=== PATIENT | male | born 1970 | race Caucasian/White ===

== ENCOUNTER → 2020-01-01 11:10 | Outpatient (BNVA) | payer OTHER, SELFPAY | PROVIDERS: PCP Internal Medicine; Visit Provider Surgery | DX: Z76.89 Persons encountering health services in other specified circumstances (principal) ==

== ENCOUNTER 2020-01-03 14:58 | Outpatient (REF) | payer OTHER, SELFPAY ==
[2020-01-03 16:20] LABS: CDIFF Ag Negative (Negative)
[2020-01-03 16:21] LABS: CDIFF Internal ctrl Dots and bkg OK (V); CDiff Toxin Negative (Negative)
== END 2020-01-03 14:59 | disposition home or self-care (01) ==
LOC: HO.LNP 14:58
PROVIDERS: Visit Provider Surgery
DX: K57.20 Diverticulitis of large intestine with perforation and abscess without bleeding (principal)
CPT/HCPCS: 87324; 87449

== ENCOUNTER 2020-01-18 06:37 | Inpatient (IN) | payer OTHER, SELFPAY ==
[2020-01-07 09:35] VITALS: BMI 34.7
[2020-01-18] VITALS (12 sets, daily range): BP systolic 130–165; BP diastolic 82–105; PULSE 63–83; RESP 16–22; TEMP 35.7–37; O2SAT 98
[2020-01-18] MEDS: Lactated Ringers 1,000 ML 100 ML IVCONT ×2 (06:25→16:41)
--- NOTE | 2020-01-18 07:20 | HO.ANESPROP2 ---
[facility] Past Medical History Medical History (Updated 01/07/20 @ 09:34 by Eliana Ruiz) Anxiety Constipation GERD (gastroesophageal reflux disease) History of diverticulitis Hyperlipidemia Hypertension Mitral valve disease Right ankle pain Family History Family History (Updated 01/01/20 @ 11:46 by VIRGILIO Alex) Mother No problems noted. Father No problems noted. Surgical History Surgical History (Updated 01/01/20 @ 13:48 by Ricco Echevarira MD) H/O mitral valve repair Status post Ammy procedure (10/21/19) Social History Social History (Updated 01/01/20 @ 11:46 by VIRGILIO Alex) Are you a primary career technical education instructor to a significant other at home: No Do you presently have visiting nurse or other home services: Yes Alcohol intake: never Smoking Status: Never smoker Second Hand Smoke Exposure: No Use of substances other than those prescribed or required for medical reasons: No Have you been hit, kicked, punched, or otherwise hurt by someone within the past year? If so, by whom?: No Advance Directives: No Advance Directives Information Provided: No Recently lost weight without trying: Yes Meds Allergies Allergy/AdvReac Type Severity Reaction Status Date / Time morphine [MORPHINE] Allergy Unknown HIVES, rash Verified 01/07/20 09:34 Home Medications Medication Instructions Recorded Confirmed Type amlodipine 10 mg tablet 10 mg PO DAILY 12/28/19 01/07/20 History aspirin 81 mg tablet,delayed 81 mg PO DAILY 12/28/19 01/07/20 History release atorvastatin 20 mg tablet 20 mg PO DAILY 12/28/19 01/07/20 History baclofen 10 mg tablet 10 mg PO TID 12/28/19 01/07/20 History cyclobenzaprine 10 mg tablet 10 mg PO BEDTIME 12/28/19 01/07/20 History dicyclomine 20 mg tablet 20 mg PO TID 12/28/19 01/07/20 History docusate sodium 100 mg capsule 100 mg PO DAILY 12/28/19 01/07/20 History metoprolol tartrate 50 mg tablet 50 mg PO DAILY 12/28/19 01/07/20 History nystatin 500,000 unit tablet 500,000 unit PO QID 12/28/19 01/07/20 History omeprazole 20 mg capsule,delayed 20 mg PO DAILY 12/28/19 01/07/20 History release gabapentin 300 mg PO BEDTIME 01/07/20 01/07/20 History sertraline 25 mg PO DAILY 01/07/20 01/07/20 History Exam Exam Date and Time: January 18, [id number] Height,Weight and Vital Signs: Height 5 ft 6 in Weight 97.522 kg Last Vital Signs Temp 97.4 F 01/18/20 06:13 Pulse 65 01/18/20 06:13 Resp 18 01/18/20 06:13 BP 165/105 H 01/18/20 06:13 Pulse Ox 98 01/18/20 06:13 Airway Mallampati Class: III TM Dist: >3cm Neck ROM: Full Heart: RRR Assessment and Plan Assessment Anesthesia Assessment: Anesthesia Plan Discussed Final Anesthetic Review NPO: Yes ASA Class: III Final Preanesthetic Review: Consent Obtained/Reviewed Anesthetic Plan Anesthetic Plan: GA
--- NOTE | 2020-01-18 07:21 | MHC.SHP ---
Pre-Procedural Eval Section A The patient is an INPATIENT: No Changes since office visit: Yes Patient answered all questions; No Cold of Flu in the past 2 weeks, No New Medical Problems and No Changes in Medication The History & Physical has been completed within 30 days and I have reviewed it.: Yes Section B Chief Complaint: S/P colostomy closure Allergies: Allergies Allergy/AdvReac Type Severity Reaction Status Date / Time morphine [MORPHINE] Allergy Unknown HIVES, rash Verified 01/07/20 09:34 Plan Diagnosis/Plan: Unchanged Patient has been examined and remains a candidate for the planned procedure
[2020-01-18 07:28] LABS: SARS COV2 PCR INHOUSE NEGATIVE (Negative)
--- NOTE | 2020-01-18 10:30 | PM.OP ---
Brief Operative Note Date of procedure: 01/18/20 <Noelle Morris PA-C - Last Filed: 01/18/20 10:32> 01/18/20 <Constantino Echevarria MD - Last Filed: 01/18/20 10:51> Pre-op diagnosis: perforated sigmoid diverticulitis s/p luis procedure <Noelle Morris PA-C - Last Filed: 01/18/20 10:32> Post-op diagnosis: same <Noelle Morris PA-C - Last Filed: 01/18/20 10:32> Procedure: ex lap, colostomy reversal <Noelle Morris PA-C - Last Filed: 01/18/20 10:32> Closure of colostomy Indication for procedure. Patient is a 49-year-old male with a previous history of perforated sigmoid diverticulitis status post Luis's procedure. He returns today for closure of his descending colon colostomy. Operative findings. Patient was found to have no further diverticular disease in both the descending colon or rectal stump. Patient underwent an EEA anastomosis. Procedure details: Patient was brought to the OR placed in a supine position. After administering general anesthesia patient was placed in lithotomy position. Patient's period anal skin was prepped with Betadine and abdomen prepped with ChloraPrep. he was draped in a sterile fashion. A surgical time-out was called the consent confirmed. Patient received preoperative antibiotics and Venodyne boots were placed. Local anesthesia consisting of 0.75% Sensorcaine with epinephrine was then infiltrated in the lower midline. A lower midline incision was then made with a scalpel. This was carried out through subcutaneous tissue past linea alba and into the peritoneum. Dense adhesions were noted to the anterior abdominal wall. These were gently taken down which included adherent omentum. The ostomy was identified in the abdominal cavity. Rectal stump was also identified. At this point an elliptical incision was made around the colostomy in the left lower quadrant. Incision was carried out through subcutaneous tissue and around the colonic wall. Dissection was continued past the peritoneum in the colostomy was brought into the abdominal cavity. Further dissection along the lateral attachments were mobilized as well. At this point the mesentery of the colostomy wall was dissected free and a pursestring clamp applied to the bowel. A true will 0 Prolene suture was then placed as a pursestring. The bowel was then dilated to 28 mm. Attention was then directed to the rectum where the anal canal was dilated to 28 as well. A 28 mm EEA stapler was then obtained. The anvil was placed in the descending colon and the pursestring tied. The device was then brought up through the rectum and brought out through the anterior rectal wall. The anvil in the rita were connected. The stapler was then fired 2 complete donut rings were identified. The anastomosis was reinforced using interrupted 3 0 Surgilon sutures. A leak test was then performed by instilling air into the rectum with the pelvis filled with saline solution. No leak could be identified. The abdomen was then thoroughly irrigated and suctioned dry. Wounds were checked for hemostasis. The colostomy wound was closed in layers using interrupted 0 Polysorb suture to reapproximate the rectus muscle. The fascia was closed using a 1 Maxon suture. Subcutaneous tissue and skin was closed skin rita. The midline incision was closed using a running Maxon suture from both above and below and tied in the center. Subcutaneous tissue and dermis were reapproximated using interrupted 3 0 Polysorb sutures. Skin was closed using skin rita. Sterile dressings were applied. The patient tolerated procedure well. Sponge, instrument, and needle counts were reported as correct. The patient was transferred to PACU in stable condition. <Constantino Echevarria MD - Last Filed: 01/18/20 10:51> Implants: none <Noelle Morris PA-C - Last Filed: 01/18/20 10:32> Surgeon: CONSTANTINO ECHEVARRIA MD <Noelle Morris PA-C - Last Filed: 01/18/20 10:32> Anesthesia: GETA <Noelle Morris PA-C - Last Filed: 01/18/20 10:32> Tube Sizer Operator: Noelle Morris <Noelle Morris PA-C - Last Filed: 01/18/20 10:32> Estimated blood loss (mL): 75 <Noelle Morris PA-C - Last Filed: 01/18/20 10:32> IV fluids (mL): 1,200 <Noelle Morris PA-C - Last Filed: 01/18/20 10:32> Urine output (mL): 150 <Noelle Morris PA-C - Last Filed: 01/18/20 10:32> Pathology: other (colostomy, EEA rings) <Noelle Morris PA-C - Last Filed: 01/18/20 10:32> Condition: stable <Noelle Morris PA-C - Last Filed: 01/18/20 10:32> Disposition: PACU <ALEXSANDRA Kang Last Filed: 01/18/20 10:32>
[2020-01-18] MEDS: ondansetron HCL 4 MG/2 ML VIAL IVPUSH (11:06)
[2020-01-18] MEDS: fentaNYL citrate/PF 100 MCG/2 ML VIAL 50 MCG IVPUSH ×2 (11:15→11:25)
[2020-01-18] MEDS: HYDROmorphone HCl 0.5 MG/0.5 ML SYRINGE 0.25 MG IVPUSH (11:40)
[2020-01-18] MEDS: Dextrose 5 % and Lactated Ring 1,000 ML 125 ML IVCONT ×2 (13:19→17:39)
[2020-01-18] MEDS: HYDROmorphone HCl 0.5 MG/0.5 ML SYRINGE IVPUSH ×3 (13:39→21:50)
--- NOTE | 2020-01-18 13:53 | MHC.CM.PN ---
NURSE GILBERTO TELETYPEWRITER OPERATOR NOTE ELECTRONIC MEDICAL RECORD REVIEWED ALNG WITH CASE DISCUSSED WITH STAFF NURSE , MET WITH PATIENT KNOW SUJATHAM [facility]. PATIENT LIVES [place] , HE REPORTS TYHAT HE IS INDEPENDENT IN ALL ADLS AND MOBILITY , WITH OUT ANY DEVICES. HE REPORTS THAT HE LOST HIS JOB SECONDARY TO MANY MEDICAL ISSUES AND THEN A NEW OSTOMY. HE HAD MET WITH [facility] [place] FINANCIAL COUNSELORS, AND NOW HAS [employer] AND IS WORKING ON FILLING FOR DISABILITY. HE REPORTED HE HAS A HEALTH CARE PROXY AND HE NAME HIS MOTHER , I REQUESTED THAT E ONE BRING IN A COPUY TO HAVE ON FILE. DISCHARGED HOME WITH RESUMPTION OF HIS [facility] NURSING VISITIS, FOR DIAGNOSIS SIGHN SYMPTOM MANAGEMENT AND POST OP INCISIONAL SITE TRANSPORTATION PATIENT TO SELF ARRANGE PCP DR KEISHA OLMEDO APPOINTMENT TO BE MADE BEFORE HE IS DISCHARGED SURGICAL FOLLOW UP PER DISCHARGE INSTRUCTIONS
--- NOTE | 2020-01-18 15:02 | W.PM.OPN ---
Operative Note Operative Note Narrative: Date of procedure: 01/18/20 Pre-op diagnosis: perforated sigmoid diverticulitis s/p lusi procedure Post-op diagnosis: same Procedure: Closure of colostomy Indication for procedure. Patient is a 49-year-old male with a previous history of perforated sigmoid diverticulitis status post Luis's procedure. He returns today for closure of his descending colon colostomy. Operative findings. Patient was found to have no further diverticular disease in both the descending colon or rectal stump. Patient underwent an EEA anastomosis. Procedure details: Patient was brought to the OR placed in a supine position. After administering general anesthesia patient was placed in lithotomy position. Patient's period anal skin was prepped with Betadine and abdomen prepped with ChloraPrep. he was draped in a sterile fashion. A surgical time-out was called the consent confirmed. Patient received preoperative antibiotics and Venodyne boots were placed. Local anesthesia consisting of 0.75% Sensorcaine with epinephrine was then infiltrated in the lower midline. A lower midline incision was then made with a scalpel. This was carried out through subcutaneous tissue past linea alba and into the peritoneum. Dense adhesions were noted to the anterior abdominal wall. These were gently taken down which included adherent omentum. The ostomy was identified in the abdominal cavity. Rectal stump was also identified. At this point an elliptical incision was made around the colostomy in the left lower quadrant. Incision was carried out through subcutaneous tissue and around the colonic wall. Dissection was continued past the peritoneum in the colostomy was brought into the abdominal cavity. Further dissection along the lateral attachments were mobilized as well. At this point the mesentery of the colostomy wall was dissected free and a pursestring clamp applied to the bowel. A true will 0 Prolene suture was then placed as a pursestring. The bowel was then dilated to 28 mm. Attention was then directed to the rectum where the anal canal was dilated to 28 as well. A 28 mm EEA stapler was then obtained. The anvil was placed in the descending colon and the pursestring tied. The device was then brought up through the rectum and brought out through the anterior rectal wall. The anvil in the rita were connected. The stapler was then fired 2 complete donut rings were identified. The anastomosis was reinforced using interrupted 3 0 Surgilon sutures. A leak test was then performed by instilling air into the rectum with the pelvis filled with saline solution. No leak could be identified. The abdomen was then thoroughly irrigated and suctioned dry. Wounds were checked for hemostasis. The colostomy wound was closed in layers using interrupted 0 Polysorb suture to reapproximate the rectus muscle. The fascia was closed using a 1 Maxon suture. Subcutaneous tissue and skin was closed skin rita. The midline incision was closed using a running Maxon suture from both above and below and tied in the center. Subcutaneous tissue and dermis were reapproximated using interrupted 3 0 Polysorb sutures. Skin was closed using skin rita. Sterile dressings were applied. The patient tolerated procedure well. Sponge, instrument, and needle counts were reported as correct. The patient was transferred to PACU in stable condition. <Constantino Echevarria MD - Last Filed: 01/18/20 10:51> Implants: none Surgeon: CONSTANTINO ECHEVARRIA MD Anesthesia: GETA Aquatics Coordinator: Noelle Morris Estimated blood loss (mL): 75 IV fluids (mL): 1,200 Urine output (mL): 150 Pathology: other (colostomy, EEA rings) Condition: stable Disposition: PACU
[2020-01-18] MEDS: oxyCODONE HCl Immed Release 5 MG TABLET PO ×2 (15:50→20:13)
[2020-01-18] MEDS: Gabapentin 300 MG CAPSULE PO (20:14)
[2020-01-18] MEDS: Zolpidem Tartrate 5 MG TABLET PO (20:18)
[2020-01-19] VITALS (8 sets, daily range): BP systolic 119–196; BP diastolic 76–118; PULSE 67–81; RESP 16–19; TEMP 35.8–36.6; O2SAT 94–98; BMI 34.7
[2020-01-19] MEDS: HYDROmorphone HCl 0.5 MG/0.5 ML SYRINGE IVPUSH ×6 (00:17→13:44)
[2020-01-19] MEDS: Dextrose 5 % and Lactated Ring 1,000 ML 125 ML IVCONT ×3 (01:41→17:25)
--- NOTE | 2020-01-19 07:37 | PM.PNGS ---
Subjective Subjective Interval history: Had a rough night of sleep due to pain. Dilaudid is the only medication relieving pain. Tolerating clears without N/V. Unsure if passing flatus. Has not been oob yet. <ALEXSANDRA Kang Last Filed: 01/19/20 07:41> Physical Exam Vital Signs: Vital Signs: Vital Signs Temp Pulse Resp BP Pulse Ox 01/19/20 04:00 97.2 F 81 18 134/76 98 01/19/20 00:00 97.3 F 80 18 150/86 H 94 01/18/20 22:38 79 20 143/82 H 01/18/20 22:07 80 20 137/87 01/18/20 21:51 83 149/91 H 01/18/20 21:50 20 01/18/20 19:38 98.6 F 82 20 162/100 H 98 01/18/20 17:22 98.1 F 74 17 155/92 H 98 01/18/20 15:24 96.3 F L 77 18 156/97 H 98 01/18/20 12:14 63 18 130/85 01/18/20 11:40 16 01/18/20 11:25 20 01/18/20 11:15 22 H Body Mass Index 34.7 <ALEXSANDRA Kang Last Filed: 01/19/20 07:41> Const: General: comfortable, no acute distress and alert <ALEXSANDRA Kang Last Filed: 01/19/20 07:41> Orientation/consciousness: patient oriented x3 <Noelle Morris PA-C Last Filed: 01/19/20 07:41> Eyes: Sclerae: sclerae normal <ALEXSANDRA Kang Last Filed: 01/19/20 07:41> Resp: Effort & Inspection: normal respiratory effort <ALEXSANDRA Kang Last Filed: 01/19/20 07:41> Cardio: Rate: regular rate <ALEXSANDRA Kang Last Filed: 01/19/20 07:41> Rhythm: regular rhythm <ALEXSANDRA Kang Last Filed: 01/19/20 07:41> GI: Inspection: Yes distended and Yes incision (dressing intact, clean) <Noelle Morris PA-C Last Filed: 01/19/20 07:41> Palpation (GI): Soft to palpation, Tenderness to palpation present (GI) (at incision), no guarding, not rigid and No Rebound tenderness present <Noelle Morris PA-C - Last Filed: 01/19/20 07:41> Percussion: Yes tympanic to percussion <ALEXSANDRA Kang Last Filed: 01/19/20 07:41> : General: Yes other (ruiz in place) <ALEXSANDRA Kang Last Filed: 01/19/20 07:41> Skin: General skin exam: no rashes or lesions noted <ALEXSANDRA Kang Last Filed: 01/19/20 07:41> Neuro: General: patient oriented x3 <ALEXSANDRA Kang Last Filed: 01/19/20 07:41> Extrem: General: Yes no clubbing, cyanosis or edema <ALEXSANDRA Kang Last Filed: 01/19/20 07:41> Progress Note: A&P Assessment and plan (1) S/P colostomy takedown: Status: Acute <Noelle Morris PA-C Gaby Last Filed: 01/19/20 07:41> Assessment and Plan: POD #1 s/p colostomy reversal for history of perforated sigmoid diverticulitis requiring luis procedure. Doing well post op, some difficulty with pain control. VSS. Clinically appearing well, abd exam slightly distended with appropriate post op tenderness, dressings C/D/I. Await return of GI fxn. Will cont clears for now. D/c Ruiz. Encouraged OOB/IS use. <Noelle Morris PA-C Last Filed: 01/19/20 07:41> Fall Risk Details Current Medications: Current Medications Generic Name Dose Route Start Last Admin Trade Name Freq PRN Reason Stop Dose Admin Al Hydroxide/Mg Hydroxide 30 ml 01/18/20 10:11 Magnesium Hydrox/Alum Hydrox 30 Ml Oral.Susp PO Q4H PRN Heartburn/Nausea Gabapentin 300 mg 10/19/20 21:00 01/18/20 20:14 Gabapentin 300 Mg Capsule PO 300 mg BEDTIME SHARIF Administration Hydromorphone HCl 0.5 mg 01/18/20 10:11 01/19/20 06:33 Hydromorphone Hcl 0.5 Mg/0.5 Ml Syringe IVPUSH 0.5 mg Q2H PRN Administration Pain, Severe (Pain Scale 7-10) Dextrose/Lactated Ringer's 1,000 mls @ 125 mls/hr 01/18/20 10:15 01/19/20 01:41 D5lr IVCONT 125 mls/hr .Q8H SHARIF Administration Acetaminophen 1,000 mg in 100 mls @ 400 mls/hr 01/18/20 15:00 01/19/20 04:39 Ofirmev IV 01/19/20 09:14 Infused Q6H SHARIF Infusion Ondansetron HCl 4 mg 01/18/20 10:11 Ondansetron Hcl 4 Mg/2 Ml Vial IVPUSH Q8H PRN Nausea and Vomiting Oxycodone HCl 5 mg 01/18/20 10:11 01/18/20 20:13 Oxycodone Hcl Immed Release 5 Mg Tablet PO 5 mg Q4H PRN Administration Pain, Moderate (Pain Scale 4-6 Sertraline HCl 25 mg 01/19/20 09:00 Sertraline Hcl 25 Mg Tablet PO DAILY SHARIF Sodium Chloride 3 ml 01/18/20 16:00 01/19/20 00:09 0.9 % Sodium Chloride Flush 3 Ml Syringe IVFLUSH Not Given QSHIFT SHARIF Zolpidem Tartrate 5 mg 01/18/20 10:11 01/18/20 20:18 Zolpidem Tartrate 5 Mg Tablet PO 5 mg BEDTIME PRN Administration Insomnia <Noelle Morris PA-C - Last Filed: 01/19/20 07:41> Time Spent With Patient Time: Total time spent is greater than 50% in coordination of care (as documented) at patient's floor/unit and/or counseling patient: <Noelle Morris PA-C - Last Filed: 01/19/20 07:41> s/p closure of colostomy, POD 1, remains hemodynamically stable. Wounds are clean and intact. Abdominal exam somewhat distended. Agree with the above assessment and plan. Continue clear liquids. Discontinue Ruiz catheter. Encouraged out of bed, ambulation, incentive spirometry. <Ricco Echevarria MD - Last Filed: 01/19/20 07:55> Time with patient: less than 15 minutes <Noelle Morris PA-C - Last Filed: 01/19/20 07:41> less than 15 minutes <Ricco Echevarria MD - Last Filed: 01/19/20 07:55>
--- NOTE | 2020-01-19 08:06 | HO.POSTANES ---
Post Anesthesia Evaluation Post Anesthesia Evaluation Vital Signs: Vital Signs Temp Pulse Resp BP Pulse Ox 01/19/20 08:00 96.4 F L 81 16 119/89 98 01/19/20 04:00 97.2 F 81 18 134/76 98 01/19/20 00:00 97.3 F 80 18 150/86 H 94 01/18/20 22:38 79 20 143/82 H 01/18/20 22:07 80 20 137/87 01/18/20 21:51 83 149/91 H 01/18/20 21:50 20 Anesthesia: General Mental Status: Awake Pain Control: Satisfactory Nausea/Vomiting: None Hydration: Adequate Anesthesia-Related Issues: No Anes. Related Issues
[2020-01-19] MEDS: oxyCODONE HCl Immed Release 5 MG TABLET 10 MG PO ×2 (08:51→14:36)
[2020-01-19] MEDS: Sertraline HCL 25 MG TABLET PO (08:51)
--- NOTE | 2020-01-19 13:00 | MHC.CM.PN ---
nurse care ana rosa note electronic medical record reviewed along with case discussed with staff nurse , met with patient today he reported that he did not sleep wel last night ,secondary to pain at the incision site, he has not passed any flatus or had a bowel movement , continues on iv fuids and and in transitioning to oral analgeics. discharge plan home with resumptin of the [facility] for nursing
[2020-01-19] MEDS: HYDROmorphone HCl 0.5 MG/0.5 ML SYRINGE 1 MG IVPUSH ×2 (17:23→22:05)
[2020-01-19] MEDS: amLODIPine Besylate 10 MG TABLET PO (17:23)
[2020-01-19] MEDS: Metoprolol Tartrate 50 MG TABLET PO (17:24)
--- NOTE | 2020-01-19 18:35 | PC.NURSE ---
BLOOD PRESSURE ELEVATED 170/100 MANUALLY. ANTHONY MCKEON NOTIFIED. NEW ORDERS FOR HOME PO MEDICATIONS GIVEN AND PT RECIEVED. WILL MONITOR BP THIS EVENING.
[2020-01-19] MEDS: oxyCODONE HCl Immed Release 5 MG TABLET PO (19:39)
[2020-01-19] MEDS: Zolpidem Tartrate 5 MG TABLET PO (21:55)
[2020-01-19] MEDS: Gabapentin 300 MG CAPSULE PO (21:55)
[2020-01-20] VITALS (8 sets, daily range): BP systolic 138–161; BP diastolic 79–118; PULSE 64–80; RESP 16–20; TEMP 36.2–36.8; O2SAT 94–99
[2020-01-20] MEDS: Dextrose 5 % and Lactated Ring 1,000 ML 125 ML IVCONT (00:58)
[2020-01-20] MEDS: HYDROmorphone HCl 0.5 MG/0.5 ML SYRINGE 1 MG IVPUSH ×5 (03:10→22:00)
--- NOTE | 2020-01-20 06:43 | PC.NURSE ---
pt had 2 stools with some bloody particles and 3rd stool was brown per patient because he flushed
--- NOTE | 2020-01-20 07:30 | P.PNGS_ITS ---
Subjective Subjective Interval history: Reports incisional pain, passed some flatus and a small bloody BM yesterday after walking. Reports mild nausea still but no vomiting. Physical Exam Vital Signs: Vital Signs: Vital Signs Temp Pulse Resp BP Pulse Ox 01/20/20 07:28 97.2 F 79 19 157/90 H 97 01/20/20 03:36 97.9 F 73 20 161/113 H 94 01/20/20 00:00 97.4 F 67 16 153/118 H 95 01/19/20 23:27 97.4 F 67 16 153/118 H 95 01/19/20 20:00 97.9 F 69 19 168/97 H 95 01/19/20 17:23 76 196/112 H 01/19/20 15:33 97.8 F 75 19 170/100 H 96 01/19/20 11:27 96.8 F 71 17 155/91 H 98 01/19/20 08:00 96.4 F L 81 16 119/89 98 Body Mass Index 34.7 Const: General: cooperative, no acute distress and awake Orientation/consciousness: patient oriented x3 Resp: Effort & Inspection: normal respiratory effort, no cough and no respiratory distress GI: Other: soft, distended, some bowel sounds, incision intact with some serosanguinous discharge. Dressings changes. No erythema, ostomy site clean and intact as well. Palpation (GI): Soft to palpation Skin: Other: warm and dry, no rash Neuro: General: patient oriented x3 Progress Note: A&P Assessment and plan (1) S/P colostomy takedown: Status: Acute Assessment and Plan: Patient is POD # 2 s/p closure of colostomy, bowel function has started to return with a small amount of flatus and BM. Patient reluctant to start regular diet due to nausea yesterday. Will keep on clears for today and possibly advance tomorrow. Encouraged patient to continue to ambulate, use IS. Pain meds increased yesterday. Fall Risk Details Current Medications: Current Medications Generic Name Dose Route Start Last Admin Trade Name Freq PRN Reason Stop Dose Admin Al Hydroxide/Mg Hydroxide 30 ml 01/18/20 10:11 Magnesium Hydrox/Alum Hydrox 30 Ml Oral.Susp PO Q4H PRN Heartburn/Nausea Amlodipine Besylate 10 mg 01/19/20 17:00 01/19/20 17:23 Amlodipine Besylate 10 Mg Tablet PO 10 mg DAILY SHARIF Administration Protocol Gabapentin 300 mg 01/18/20 21:00 01/19/20 21:55 Gabapentin 300 Mg Capsule PO 300 mg BEDTIME SHARIF Administration Hydromorphone HCl 1 mg 01/19/20 14:44 01/20/20 03:10 Hydromorphone Hcl 0.5 Mg/0.5 Ml Syringe IVPUSH 1 mg Q4H PRN Administration Pain, Severe (Pain Scale 7-10) Dextrose/Lactated Ringer's 1,000 mls @ 125 mls/hr 01/18/20 10:15 01/20/20 00:58 D5lr IVCONT 125 mls/hr .Q8H SHARIF Administration Acetaminophen 1,000 mg in 100 mls @ 400 mls/hr 01/19/20 15:00 01/20/20 03:49 Ofirmev IV 01/22/20 09:14 Infused Q6H [facility] Infusion Metoprolol Tartrate 50 mg 01/20/20 09:00 Metoprolol Tartrate 50 Mg Tablet PO DAILY [facility] Protocol Omeprazole 20 mg 01/20/20 07:30 Omeprazole 20 Mg Capsule.Dr PO DAILY@0630 [facility] Ondansetron HCl 4 mg 01/18/20 10:11 Ondansetron Hcl 4 Mg/2 Ml Vial IVPUSH Q8H PRN Nausea and Vomiting Oxycodone HCl 5 mg 01/18/20 10:11 01/19/20 19:39 Oxycodone Hcl Immed Release 5 Mg Tablet PO 5 mg Q4H PRN Administration Pain, Moderate (Pain Scale 4-6 Oxycodone HCl 10 mg 01/19/20 07:42 01/19/20 14:36 Oxycodone Hcl Immed Release 5 Mg Tablet PO 10 mg Q4H PRN Administration Pain, Severe (Pain Scale 7-10) Sertraline HCl 25 mg 01/19/20 09:00 01/19/20 08:51 Sertraline Hcl 25 Mg Tablet PO 25 mg DAILY [facility] Administration Sodium Chloride 3 ml 01/18/20 16:00 01/20/20 00:16 0.9 % Sodium Chloride Flush 3 Ml Syringe IVFLUSH Not Given QSHIFT [facility] Zolpidem Tartrate 5 mg 01/18/20 10:11 01/19/20 21:55 Zolpidem Tartrate 5 Mg Tablet PO 5 mg BEDTIME PRN Administration Insomnia Time Spent With Patient Time: Total time spent is greater than 50% in coordination of care (as documented) at patient's floor/unit and/or counseling patient: Time with patient: 15 - 24 minutes
[2020-01-20] MEDS: Sertraline HCL 25 MG TABLET PO (07:54)
[2020-01-20] MEDS: amLODIPine Besylate 10 MG TABLET PO (07:54)
[2020-01-20] MEDS: Omeprazole 20 MG CAPSULE.DR PO (07:55)
[2020-01-20] MEDS: Metoprolol Tartrate 50 MG TABLET PO (07:55)
[2020-01-20] MEDS: Dextrose 5 % and Lactated Ring 1,000 ML 60 ML IVCONT ×2 (08:03→22:27)
[2020-01-20 08:24] LABS: Basophils Percent Auto 0.2 % (0-2); Eosinophils Absolute Auto 0.1 X10*3/uL (0.0-0.4); Eosinophils Percent Auto 0.3 % (0-4); Hematocrit 42.1 % (42-52); Hemoglobin 13.5 g/dl (14.0-18.0); Imm Gran Abs Auto 0.14 X10*3/uL (0.00-0.03); Imm Gran Pct Auto 0.6 % (0.0-0.4); Lymphocytes Percent Auto 13.3 % (20-40); MANUAL DIFF FLAG SCAN; Mean Corpuscular HGB Conc 32.1 g/dl (31.0-36.0); Mean Corpuscular Hemoglobin 28.5 pg (27.0-33.0); Mean Platelet Volume 11.9 fL (9.4-12.4); Monocytes Absolute Auto 1.7 X10*3/uL (0.1-1.2); Monocytes Percent Auto 7.5 % (2-11); Neutrophils Absolute Auto 17.8 X10*3/uL (2.0-8.3); Neutrophils Percent Auto 78.1 % (45-73); Platelet Count 287 X10*3/uL (160-400); Red Blood Count 4.73 X10*6/uL (4.60-5.80); Red Cell Distribution Width 15.2 % (11.0-16.0); SCAN SMEAR FLAG 1; White Blood Count 22.7 X10*3/uL (4.8-10.8)
[2020-01-20 09:02] LABS: Anion Gap 12 (12-20); Blood Urea Nitrogen 15 mg/dL (9-16); Calcium 8.1 mg/dL (8.4-10.2); Carbon Dioxide 31 mmol/L (22-29); Chloride 98 mmol/L (96-108); Creatinine Clr Calc Pharmacy 71.8; Estimated Glomerular Filt Rate 55; Glucose Fasting 107 mg/dL (60-99); Potassium 4.1 mmol/l (3.3-5.1); Sodium 137 mmol/L (135-145)
[2020-01-20 09:10] LABS: SLIDE REVIEW VERIFIED
[2020-01-20] MEDS: oxyCODONE HCl Immed Release 5 MG TABLET 10 MG PO ×2 (14:41→19:41)
--- NOTE | 2020-01-20 15:06 | MHC.CM.PN ---
DP home with resumption of [facility]. Family will provide transportation. The Pt sees an ACCOUNTANT AUDITOR at DR Cisneros office. PCP should be able to sign orders for Homecare.
[2020-01-20] MEDS: Gabapentin 300 MG CAPSULE PO (22:01)
[2020-01-20] MEDS: Zolpidem Tartrate 5 MG TABLET PO (22:01)
[2020-01-21] VITALS (7 sets, daily range): BP systolic 143–164; BP diastolic 86–99; PULSE 68–80; RESP 16–19; TEMP 35.9–36.8; O2SAT 96–98
[2020-01-21] MEDS: HYDROmorphone HCl 0.5 MG/0.5 ML SYRINGE 1 MG IVPUSH ×3 (02:07→21:56)
[2020-01-21] MEDS: Omeprazole 20 MG CAPSULE.DR PO (06:02)
--- NOTE | 2020-01-21 08:05 | P.PNGS_ITS ---
Subjective Subjective Interval history: Feels ok today. Not sleeping well. Pain getting better controlled but still requiring dilaudid. OOB and ambulated halls multiple times yesterday. Tolerating liquids and feels hungry. BM yesterday. <Noelle Morris PA-C Last Filed: 01/21/20 08:10> Physical Exam Vital Signs: Vital Signs: Vital Signs Temp Pulse Resp BP Pulse Ox 01/21/20 07:45 97.3 F 73 18 160/91 H 97 01/21/20 03:44 97 F 78 19 159/99 H 97 01/21/20 00:00 96.8 F 76 16 164/86 H 96 01/20/20 22:00 18 01/20/20 19:37 98.2 F 80 19 144/88 H 99 01/20/20 15:13 97.1 F 65 18 155/89 H 96 01/20/20 12:00 97.3 F 64 18 138/79 97 Body Mass Index 34.7 <Noelle Morris PA-C Last Filed: 01/21/20 08:10> Const: General: comfortable, no acute distress and alert <Noelle Morris PA-C Last Filed: 01/21/20 08:10> Orientation/consciousness: patient oriented x3 <Noelle Morris PA-C Last Filed: 01/21/20 08:10> Eyes: Sclerae: sclerae normal <Noelle Morris PA-C Last Filed: 01/21/20 08:10> Resp: Effort & Inspection: normal respiratory effort <Noelle Morris PA-C Last Filed: 01/21/20 08:10> Cardio: Rate: regular rate <Noelle Morris PA-C Last Filed: 01/21/20 08:10> GI: Inspection: Yes distended (mild) and Yes incision (clean, some pale erythema of old colostomy site inferiorly) <Noelle Morris PA-C Last Filed: 01/21/20 08:10> Palpation (GI): Soft to palpation, Tenderness to palpation present (GI) (incisional), no guarding, not rigid and No Rebound tenderness present <Noelle Morris PA-C - Last Filed: 01/21/20 08:10> Auscultation: normal bowel sounds <Noelle Morris PA-C - Last Filed: 01/21/20 08:10> Skin: General skin exam: no rashes or lesions noted <Noelle Morris PA-C - Last Filed: 01/21/20 08:10> Neuro: General: patient oriented x3 <ALEXSANDRA Kang Last Filed: 01/21/20 08:10> Extrem: General: Yes no clubbing, cyanosis or edema <Noelle Morris PA-C - Last Filed: 01/21/20 08:10> Progress Note: A&P Assessment and plan (1) S/P colostomy takedown: Status: Acute <Noelle Morris PA-C - Last Filed: 01/21/20 08:10> Assessment and Plan: POD #3. Doing well post op. VSS. Abd exam benign with appropriate post op tenderness. Incisions clean and intact. Will advance to a low residue diet. D/c IVF. Continue pain control, encouraged use of PO analgesics in preparation for discharge to home. Home likely over the weekend. <Noelle Morris PA-C - Last Filed: 01/21/20 08:10> Edbela reports improvement in the abdominal pain but still using di laudid. Wounds clean and intact. Agree with the above assessment and plan. Agree with increased diet. <Ricco Echevarria MD - Last Filed: 01/21/20 15:58> (2) Sigmoid diverticulitis: Status: Acute <Noelle Morris PA-C - Last Filed: 01/21/20 08:10> (3) Hypertension: Status: Acute <Noelle Morris PA-C - Last Filed: 01/21/20 08:10> Fall Risk Details Current Medications: Current Medications Generic Name Dose Route Start Last Admin Trade Name Freq PRN Reason Stop Dose Admin Al Hydroxide/Mg Hydroxide 30 ml 01/18/20 10:11 Magnesium Hydrox/Alum Hydrox 30 Ml Oral.Susp PO Q4H PRN Heartburn/Nausea Amlodipine Besylate 10 mg 01/19/20 17:00 01/20/20 07:54 Amlodipine Besylate 10 Mg Tablet PO 10 mg DAILY SHARIF Administration Protocol Gabapentin 300 mg 01/18/20 21:00 01/20/20 22:01 Gabapentin 300 Mg Capsule PO 300 mg BEDTIME SHARIF Administration Hydromorphone HCl 1 mg 01/19/20 14:44 01/21/20 06:02 Hydromorphone Hcl 0.5 Mg/0.5 Ml Syringe IVPUSH 1 mg Q4H PRN Administration Pain, Severe (Pain Scale 7-10) Dextrose/Lactated Ringer's 1,000 mls @ 60 mls/hr 01/18/20 10:15 01/20/20 22:27 D5lr IVCONT 60 mls/hr .[id number] SHARIF Administration Acetaminophen 1,000 mg in 100 mls @ 400 mls/hr 01/19/20 15:00 01/21/20 04:09 Ofirmev IV 01/22/20 09:14 Infused Q6H SHARIF Infusion Metoprolol Tartrate 50 mg 01/20/20 09:00 01/20/20 07:55 Metoprolol Tartrate 50 Mg Tablet PO 50 mg DAILY SHARIF Administration Protocol Omeprazole 20 mg 01/20/20 07:30 01/21/20 06:02 Omeprazole 20 Mg Capsule.Dr PO 20 mg DAILY@0630 SHARIF Administration Ondansetron HCl 4 mg 01/18/20 10:11 Ondansetron Hcl 4 Mg/2 Ml Vial IVPUSH Q8H PRN Nausea and Vomiting Oxycodone HCl 5 mg 01/18/20 10:11 01/19/20 19:39 Oxycodone Hcl Immed Release 5 Mg Tablet PO 5 mg Q4H PRN Administration Pain, Moderate (Pain Scale 4-6 Oxycodone HCl 10 mg 01/19/20 07:42 01/20/20 19:41 Oxycodone Hcl Immed Release 5 Mg Tablet PO 10 mg Q4H PRN Administration Pain, Severe (Pain Scale 7-10) Sertraline HCl 25 mg 01/19/20 09:00 01/20/20 07:54 Sertraline Hcl 25 Mg Tablet PO 25 mg DAILY SHARIF Administration Sodium Chloride 3 ml 01/18/20 16:00 01/21/20 00:12 0.9 % Sodium Chloride Flush 3 Ml Syringe IVFLUSH Not Given QSHIFT SHARIF Zolpidem Tartrate 5 mg 01/18/20 10:11 01/20/20 22:01 Zolpidem Tartrate 5 Mg Tablet PO 5 mg BEDTIME PRN Administration Insomnia <Noelle Morris PA-C - Last Filed: 01/21/20 08:10> Time Spent With Patient Time: Total time spent is greater than 50% in coordination of care (as documented) at patient's floor/unit and/or counseling patient: <Noelle Morris PA-C - Last Filed: 01/21/20 08:10> Time with patient: 15 - 24 minutes <Noelle Morris PA-C - Last Filed: 01/21/20 08:10>
[2020-01-21] MEDS: 0.9 % Sodium Chloride Flush 3 ML SYRINGE IVFLUSH ×2 (09:59→18:05)
[2020-01-21] MEDS: amLODIPine Besylate 10 MG TABLET PO (10:00)
[2020-01-21] MEDS: Sertraline HCL 25 MG TABLET PO (10:00)
[2020-01-21] MEDS: Metoprolol Tartrate 50 MG TABLET PO (10:00)
[2020-01-21] MEDS: oxyCODONE HCl Immed Release 5 MG TABLET 10 MG PO ×3 (10:04→18:04)
[2020-01-21] MEDS: Gabapentin 300 MG CAPSULE PO (21:56)
[2020-01-21] MEDS: Zolpidem Tartrate 5 MG TABLET PO (21:56)
[2020-01-22] VITALS (8 sets, daily range): BP systolic 143–156; BP diastolic 82–97; PULSE 72–94; RESP 18; TEMP 35.9–36.7; O2SAT 94–97
[2020-01-22] MEDS: 0.9 % Sodium Chloride Flush 3 ML SYRINGE IVFLUSH ×4 (00:11→23:31)
[2020-01-22] MEDS: oxyCODONE HCl Immed Release 5 MG TABLET PO (01:59)
[2020-01-22] MEDS: Omeprazole 20 MG CAPSULE.DR PO (06:34)
--- NOTE | 2020-01-22 07:59 | P.PNGS_ITS ---
Subjective Subjective Interval history: Reports having difficulty sleeping because of abdominal burning. Tolerated regular diet without nausea or vomiting. He reports passing flatus but denies BM. Ambulating in the hallways independently. Physical Exam Vital Signs: Vital Signs: Vital Signs Temp Pulse Resp BP Pulse Ox 01/22/20 03:03 97.3 F 73 18 151/96 H 94 01/21/20 22:40 97.5 F 79 18 150/90 H 97 01/21/20 20:00 96.7 F L 80 18 143/92 H 97 01/21/20 15:49 98.3 F 68 18 154/97 H 98 01/21/20 11:38 97.5 F 76 18 148/91 H 97 Body Mass Index 34.7 Const: General: cooperative and no acute distress Orientation/consciousness: patient oriented x3 Resp: Effort & Inspection: normal respiratory effort and no cough GI: Inspection: Yes normal to inspection, Yes distended and Yes obesity Palpation (GI): Soft to palpation and Tenderness to palpation present (GI) (at the abdominal incision) Skin: General skin exam: no rashes or lesions noted Neuro: General: patient oriented x3 Extrem: General: Yes full ROM and Yes no pedal edema Progress Note: A&P Assessment and plan (1) S/P colostomy takedown: Status: Acute Assessment and Plan: POD #2 s/p closure of colostomy after Ammy's procedure. He is tolerating his regular diet without nausea or vomiting and is now passing flatus. No BM yet. Ambulating well in hallways. WBC elevated previously therefore will recheck today. Encouraged patient to avoid IV pain meds. Await full return of bowel function. Fall Risk Details Current Medications: Current Medications Generic Name Dose Route Start Last Admin Trade Name Freq PRN Reason Stop Dose Admin Al Hydroxide/Mg Hydroxide 30 ml 01/18/20 10:11 Magnesium Hydrox/Alum Hydrox 30 Ml Oral.Susp PO Q4H PRN Heartburn/Nausea Amlodipine Besylate 10 mg 01/19/20 17:00 01/21/20 10:00 Amlodipine Besylate 10 Mg Tablet PO 10 mg DAILY SHARIF Administration Protocol Gabapentin 300 mg 01/18/20 21:00 01/21/20 21:56 Gabapentin 300 Mg Capsule PO 300 mg BEDTIME SHARIF Administration Hydromorphone HCl 1 mg 01/19/20 14:44 01/21/20 21:56 Hydromorphone Hcl 0.5 Mg/0.5 Ml Syringe IVPUSH 1 mg Q4H PRN Administration Pain, Severe (Pain Scale 7-10) Acetaminophen 1,000 mg in 100 mls @ 400 mls/hr 01/19/20 15:00 01/22/20 04:35 Ofirmev IV 01/22/20 09:14 Not Given Q6H SHARIF Metoprolol Tartrate 50 mg 01/20/20 09:00 01/21/20 10:00 Metoprolol Tartrate 50 Mg Tablet PO 50 mg DAILY SHARIF Administration Protocol Omeprazole 20 mg 01/20/20 07:30 01/22/20 06:34 Omeprazole 20 Mg Capsule.Dr PO 20 mg DAILY@0630 [facility] Administration Ondansetron HCl 4 mg 01/18/20 10:11 Ondansetron Hcl 4 Mg/2 Ml Vial IVPUSH Q8H PRN Nausea and Vomiting Oxycodone HCl 5 mg 01/18/20 10:11 01/22/20 01:59 Oxycodone Hcl Immed Release 5 Mg Tablet PO 5 mg Q4H PRN Administration Pain, Moderate (Pain Scale 4-6 Oxycodone HCl 10 mg 01/19/20 07:42 01/21/20 18:04 Oxycodone Hcl Immed Release 5 Mg Tablet PO 10 mg Q4H PRN Administration Pain, Severe (Pain Scale 7-10) Sertraline HCl 25 mg 01/19/20 09:00 01/21/20 10:00 Sertraline Hcl 25 Mg Tablet PO 25 mg DAILY SHARIF Administration Sodium Chloride 3 ml 01/18/20 16:00 01/22/20 00:11 0.9 % Sodium Chloride Flush 3 Ml Syringe IVFLUSH 3 ml QSHIFT SHARIF Administration Zolpidem Tartrate 5 mg 01/18/20 10:11 01/21/20 21:56 Zolpidem Tartrate 5 Mg Tablet PO 5 mg BEDTIME PRN Administration Insomnia Time Spent With Patient Time: Total time spent is greater than 50% in coordination of care (as documented) at patient's floor/unit and/or counseling patient: Time with patient: 15 - 24 minutes
[2020-01-22] MEDS: Metoprolol Tartrate 50 MG TABLET PO (09:21)
[2020-01-22] MEDS: amLODIPine Besylate 10 MG TABLET PO (09:21)
[2020-01-22] MEDS: Sertraline HCL 25 MG TABLET PO (09:21)
[2020-01-22] MEDS: HYDROmorphone HCl 0.5 MG/0.5 ML SYRINGE 1 MG IVPUSH ×3 (09:21→20:51)
[2020-01-22 10:51] LABS: Hemoglobin 14.8 g/dl (14.0-18.0); Mean Corpuscular HGB Conc 32.2 g/dl (31.0-36.0); Mean Corpuscular Hemoglobin 28.2 pg (27.0-33.0); Mean Corpuscular Volume 87.8 fL (80-98); Mean Platelet Volume 12.2 fL (9.4-12.4); Platelet Count 329 X10*3/uL (160-400); Red Blood Count 5.24 X10*6/uL (4.60-5.80); White Blood Count 16.6 X10*3/uL (4.8-10.8)
[2020-01-22 11:18] LABS: Anion Gap 14 (12-20); Blood Urea Nitrogen 12 mg/dL (9-16); Carbon Dioxide 32 mmol/L (22-29); Chloride 97 mmol/L (96-108); Creatinine Clr Calc Pharmacy 72.3; Estimated Glomerular Filt Rate 55; Glucose Random 122 mg/dL (60-115); Potassium 4.3 mmol/l (3.3-5.1); Sodium 139 mmol/L (135-145)
[2020-01-22 11:35] LABS: Calcium 8.7 mg/dL (8.4-10.2)
--- NOTE | 2020-01-22 11:57 | MHC.CM.PN ---
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 transportatin family pcp osvaldo maurice patient to call for post hospitlal discharge followm up surgical follow up as indicated on the dischagre instructions
[2020-01-22] MEDS: Gabapentin 300 MG CAPSULE PO (21:43)
[2020-01-22] MEDS: Zolpidem Tartrate 5 MG TABLET PO (21:43)
[2020-01-23] VITALS (10 sets, daily range): BP systolic 133–156; BP diastolic 77–102; PULSE 69–91; RESP 18–20; TEMP 35.7–36.2; O2SAT 93–97
[2020-01-23] MEDS: HYDROmorphone HCl 0.5 MG/0.5 ML SYRINGE 1 MG IVPUSH ×6 (00:53→22:50)
[2020-01-23] MEDS: oxyCODONE HCl Immed Release 5 MG TABLET 10 MG PO ×5 (02:29→20:28)
[2020-01-23] MEDS: Omeprazole 20 MG CAPSULE.DR PO (06:31)
[2020-01-23 07:12] LABS: Hematocrit 47.9 % (42-52); Hemoglobin 15.1 g/dl (14.0-18.0); Mean Corpuscular HGB Conc 31.5 g/dl (31.0-36.0); Mean Corpuscular Hemoglobin 27.7 pg (27.0-33.0); Mean Corpuscular Volume 87.9 fL (80-98); Mean Platelet Volume 11.6 fL (9.4-12.4); Platelet Count 359 X10*3/uL (160-400); Red Blood Count 5.45 X10*6/uL (4.60-5.80); White Blood Count 17.3 X10*3/uL (4.8-10.8)
[2020-01-23] MEDS: amLODIPine Besylate 10 MG TABLET PO (09:00)
[2020-01-23] MEDS: Metoprolol Tartrate 50 MG TABLET PO (09:00)
[2020-01-23] MEDS: Sertraline HCL 25 MG TABLET PO (09:00)
[2020-01-23] MEDS: 0.9 % Sodium Chloride Flush 3 ML SYRINGE IVFLUSH ×2 (09:00→15:57)
--- NOTE | 2020-01-23 11:17 | PM.PNGS ---
Subjective Subjective Patient reports: no new complaints, feels better, pain is less, flatus and no bowel movement Interval history: He states that his pain is improved but still taking using Dilaudid and oxycodone regularly. He is tolerating a regular diet with some nausea and cramping. He is OOB ambulating in dalal. No new complaints Physical Exam Vital Signs: Vital Signs: Vital Signs Temp Pulse Resp BP Pulse Ox 01/23/20 11:02 96.3 F L 80 20 137/85 93 01/23/20 08:00 96.8 F 91 20 156/102 H 95 01/23/20 04:57 19 01/23/20 04:00 97.2 F 78 20 143/77 H 97 01/23/20 00:53 18 01/23/20 00:51 83 18 150/82 H 01/22/20 23:23 97.5 F 91 18 151/94 H 95 01/22/20 20:51 18 01/22/20 19:40 96.7 F L 85 18 152/97 H 96 01/22/20 15:43 97.7 F 77 18 143/87 H 97 01/22/20 11:51 97.2 F 72 18 148/82 H 97 Body Mass Index 34.7 Const: General: cooperative and no acute distress Resp: Effort & Inspection: normal respiratory effort Auscultation: clear to auscultation bilaterally Cardio: Rate: regular rate Rhythm: regular rhythm Heart sounds: S1 normal heart sound present and S2 normal heart sound present GI: Inspection: Yes normal to inspection, Yes distended (mildly) and Yes incision (c/d/i, no drainage) Auscultation: Hypoactive bowel sounds present Skin: General skin exam: no rashes or lesions noted Extrem: General: Yes no calf tenderness Psych: Speech and movement: Normal speech and movement present Affect: normal affect Progress Note: A&P Assessment and plan (1) S/P colostomy takedown: Problem details: 49 yo male POD #3 s/p colostomy take-down. He is doing well. Pain improving. Status: Acute Assessment and Plan: Continue current pain mgmt but encourage use of PO meds. Due to his ongoing ABD pain and cramping we will switch his diet to Full liquid from Regular. Encourage OOB. Will add suppository Fall Risk Details Current Medications: Current Medications Generic Name Dose Route Start Last Admin Trade Name Freq PRN Reason Stop Dose Admin Al Hydroxide/Mg Hydroxide 30 ml 01/18/20 10:11 Magnesium Hydrox/Alum Hydrox 30 Ml Oral.Susp PO Q4H PRN Heartburn/Nausea Amlodipine Besylate 10 mg 01/19/20 17:00 01/23/20 09:00 Amlodipine Besylate 10 Mg Tablet PO 10 mg DAILY SHARIF Administration Protocol Gabapentin 300 mg 01/18/20 21:00 01/22/20 21:43 Gabapentin 300 Mg Capsule PO 300 mg BEDTIME SHARIF Administration Hydromorphone HCl 1 mg 01/19/20 14:44 01/23/20 09:00 Hydromorphone Hcl 0.5 Mg/0.5 Ml Syringe IVPUSH 1 mg Q4H PRN Administration Pain, Severe (Pain Scale 7-10) Metoprolol Tartrate 50 mg 01/20/20 09:00 01/23/20 09:00 Metoprolol Tartrate 50 Mg Tablet PO 50 mg DAILY SHARIF Administration Protocol Omeprazole 20 mg 01/20/20 07:30 01/23/20 06:31 Omeprazole 20 Mg Capsule.Dr PO 20 mg DAILY@0630 SHARIF Administration Ondansetron HCl 4 mg 01/18/20 10:11 Ondansetron Hcl 4 Mg/2 Ml Vial IVPUSH Q8H PRN Nausea and Vomiting Oxycodone HCl 10 mg 01/19/20 07:42 01/23/20 06:38 Oxycodone Hcl Immed Release 5 Mg Tablet PO 10 mg Q4H PRN Administration Pain, Severe (Pain Scale 7-10) Sertraline HCl 25 mg 01/19/20 09:00 01/23/20 09:00 Sertraline Hcl 25 Mg Tablet PO 25 mg DAILY SHARIF Administration Sodium Chloride 3 ml 01/18/20 16:00 01/23/20 09:00 0.9 % Sodium Chloride Flush 3 Ml Syringe IVFLUSH 3 ml QSHIFT SHARIF Administration Time Spent With Patient Time: Total time spent is greater than 50% in coordination of care (as documented) at patient's floor/unit and/or counseling patient: Time with patient: less than 15 minutes Progress Note: Quality VTE Deep Vein Thrombosis/Pulmonary Embolism Present on Admission: No
[2020-01-23] MEDS: ondansetron HCL 4 MG/2 ML VIAL IVPUSH ×2 (11:26→20:29)
[2020-01-23] MEDS: Zolpidem Tartrate 5 MG TABLET PO (22:45)
[2020-01-23] MEDS: Gabapentin 300 MG CAPSULE PO (22:45)
[2020-01-24] VITALS (9 sets, daily range): BP systolic 126–154; BP diastolic 76–97; PULSE 68–91; RESP 16–19; TEMP 36–36.6; O2SAT 93–100
[2020-01-24] MEDS: oxyCODONE HCl Immed Release 5 MG TABLET 10 MG PO ×2 (00:41→05:26)
[2020-01-24] MEDS: 0.9 % Sodium Chloride Flush 3 ML SYRINGE IVFLUSH ×4 (00:44→21:08)
[2020-01-24] MEDS: HYDROmorphone HCl 0.5 MG/0.5 ML SYRINGE 1 MG IVPUSH ×2 (04:22→09:23)
[2020-01-24] MEDS: Omeprazole 20 MG CAPSULE.DR PO (05:29)
--- NOTE | 2020-01-24 06:36 | PC.NURSE ---
7P-7A; PATIENT WAS OFFERED A SUPPOSITORY MULTIPLE TIMES DURING THIS SHIFT, PATIENT HAS NOT HAD A BM BUT IS PASSING GAS. PATIENT REFUSED AT BEDTIME, REPORTS HE WILL TAKE THE SUPPOSITORY AFTER BREAKFAST.
[2020-01-24] MEDS: Sertraline HCL 25 MG TABLET PO (09:24)
[2020-01-24] MEDS: Metoprolol Tartrate 50 MG TABLET PO (09:24)
[2020-01-24] MEDS: amLODIPine Besylate 10 MG TABLET PO (09:24)
--- NOTE | 2020-01-24 10:02 | MHC.CM.PN ---
NURSE TRAIN DIRECTOR NTE [employer] LAE[employer] record reviewed aong with case disccussed with staff nurse , met with patient he has rewported feeling cramy and remains on full liquid diet with no pass of stool he is ambualting in the hallways at least 4 times daiy, plan is to continue t try to convert iv analgeics to oral , patient reported feeling more anxious today as he hads not had any bowel movement, home care physical therapist to continue to follow discharge once return of bowle functioning and tolerance to regular diet and conversion to oral analgeics transportation family pcp patient to call for follow up as well as surgical follow up peer discharge instructins
--- NOTE | 2020-01-24 12:16 | PM.PNGS ---
Subjective Subjective Patient reports: no new complaints, tolerating liquids well, flatus and no bowel movement <LINDA Marquez Last Filed: 01/24/20 14:32> Interval history: He states that he is feeling well but does not feel like he is ready to go home yet. He continues to report a lot of flatus but no BM. He refused suppository overnight. <LINDA Marquez Last Filed: 01/24/20 14:32> Physical Exam Vital Signs: Vital Signs: Vital Signs Temp Pulse Resp BP Pulse Ox 01/24/20 11:38 97.7 F 70 126/76 98 01/24/20 09:24 91 150/97 H 01/24/20 07:06 97.0 F 87 19 146/93 H 93 01/24/20 04:22 16 01/24/20 04:00 97.8 F 76 16 154/92 H 96 01/24/20 00:00 96.8 F 80 18 149/82 H 100 01/23/20 22:50 18 01/23/20 22:49 76 18 142/90 H 01/23/20 19:23 97 F 69 146/92 H 97 01/23/20 16:00 97.1 F 75 18 133/84 97 Body Mass Index 34.7 <LINDA Marquez Last Filed: 01/24/20 14:32> Const: General: cooperative, comfortable, no acute distress and anxious <LINDA Marquez Last Filed: 01/24/20 14:32> Orientation/consciousness: oriented to person, oriented to place and oriented to time <LINDA Marquez Last Filed: 01/24/20 14:32> GI: Inspection: Yes normal to inspection, Yes distended (unchanged since yesterday.), Yes incision (c/d/i. No drainage or discharge.) and Yes obesity <LINDA Marquez Last Filed: 01/24/20 14:32> Palpation (GI): Soft to palpation <LINDA Marquez Last Filed: 01/24/20 14:32> Auscultation: normal bowel sounds <LINDA Marquez Last Filed: 01/24/20 14:32> Skin: Other: warm and dry <LINDA Marquez Last Filed: 01/24/20 14:32> General skin exam: no rashes or lesions noted <LINDA Marquez Last Filed: 01/24/20 14:32> Neuro: General: oriented to person, oriented to place and oriented to time <LINDA Marquez - Last Filed: 01/24/20 14:32> Extrem: General: Yes no calf tenderness <LINDA Marquez - Last Filed: 01/24/20 14:32> Progress Note: A&P Assessment and plan (1) S/P colostomy takedown: Problem details: 49 yo male POD #4 s/p colostomy take-down. He is doing well. Pain improving. Still no BM <LINDA Marquez Last Filed: 01/24/20 14:32> Status: Acute <LINDA Marquez - Last Filed: 01/24/20 14:32> Assessment and Plan: Will switch pain medication from IV to PO Encouraged OOB Continue full liquid diet until he moves his bowels Encourage suppository <LINDA Marquez Last Filed: 01/24/20 14:32> (2) Anxiety: Status: Acute <LINDA Marquez - Last Filed: 01/24/20 14:32> Assessment and Plan: Will RX Lorazepam for anxiety <LINDA Marquez Last Filed: 01/24/20 14:32> Fall Risk Details Current Medications: Current Medications Generic Name Dose Route Start Last Admin Trade Name Freq PRN Reason Stop Dose Admin Al Hydroxide/Mg Hydroxide 30 ml 01/18/20 10:11 Magnesium Hydrox/Alum Hydrox 30 Ml Oral.Susp PO Q4H PRN Heartburn/Nausea Amlodipine Besylate 10 mg 01/19/20 17:00 01/24/20 09:24 Amlodipine Besylate 10 Mg Tablet PO 10 mg DAILY SHARIF Administration Protocol Bisacodyl 10 mg 01/23/20 18:08 Bisacodyl 10 Mg Supp.Rect DE BEDTIME PRN Constipation Gabapentin 300 mg 01/18/20 21:00 01/23/20 22:45 Gabapentin 300 Mg Capsule PO 300 mg BEDTIME SHARIF Administration Lorazepam 0.5 mg 01/24/20 10:43 Lorazepam 0.5 Mg Tablet PO Q8H PRN Anxiety Metoprolol Tartrate 50 mg 01/20/20 09:00 01/24/20 09:24 Metoprolol Tartrate 50 Mg Tablet PO 50 mg DAILY SHARIF Administration Protocol Omeprazole 20 mg 01/20/20 07:30 01/24/20 05:29 Omeprazole 20 Mg Capsule.Dr PO 20 mg DAILY@0630 SHARIF Administration Ondansetron HCl 4 mg 01/18/20 10:11 01/23/20 20:29 Ondansetron Hcl 4 Mg/2 Ml Vial IVPUSH 4 mg Q8H PRN Administration Nausea and Vomiting Oxycodone HCl 5 mg 01/24/20 10:39 Oxycodone Hcl Immed Release 5 Mg Tablet PO Q4H PRN Breakthrough Pain Sertraline HCl 25 mg 01/19/20 09:00 01/24/20 09:24 Sertraline Hcl 25 Mg Tablet PO 25 mg DAILY SHARIF Administration Sodium Chloride 3 ml 01/18/20 16:00 01/24/20 09:23 0.9 % Sodium Chloride Flush 3 Ml Syringe IVFLUSH 3 ml QSHIFT SHARIF Administration <LINDA Marquez - Last Filed: 01/24/20 14:32> Time Spent With Patient Time: Total time spent is greater than 50% in coordination of care (as documented) at patient's floor/unit and/or counseling patient: <LINDA Marquez - Last Filed: 01/24/20 14:32> Patient was examined and evaluated at th bedside with Mr. Jon Swanson PA-C, and I confirm his findings and plan as documented above. Still no BM. Only lots of flatus. We discontinued IV dilaudid, changed to oral Oxycodone. Otherwise no active postop issues. Stable and doing well otherwise. <Krystal Chamberlain MD - Last Filed: 01/24/20 15:27> Time with patient: less than 15 minutes <LINDA Marquez - Last Filed: 01/24/20 14:32> Progress Note: Quality VTE Deep Vein Thrombosis/Pulmonary Embolism Present on Admission: No <LINDA Marquez Last Filed: 01/24/20 14:32>
[2020-01-24] MEDS: oxyCODONE HCl Immed Release 5 MG TABLET PO ×3 (12:18→21:07)
--- NOTE | 2020-01-24 18:01 | PC.NURSE ---
PT TOLERATING FULL LIQUID DIET. DENIES N/V. C/O ABDOMINAL PAIN- OXYCODONE GIVEN WITH GOOD EFFECT. AMBULATES IN ANAYA. BM IN TOILET TONIGHT, SMALL AMOUNT SOFT BROWN. DRESSING REMOVED TODAY BY . [place] INTACT WITH SCANT AMOUNT OF SEROSANGUINOUS DRAINAGE NOTED AT LOWER PORTION. DSD APPLIED. WILL MONITOR
[2020-01-24] MEDS: Gabapentin 300 MG CAPSULE PO (21:07)
[2020-01-24] MEDS: LORazepam 0.5 MG TABLET PO (22:21)
[2020-01-25 04:04] VITALS: BP 157/94; PULSE 75; RESP 19; TEMP 36.7; O2SAT 99
[2020-01-25] MEDS: oxyCODONE HCl Immed Release 5 MG TABLET PO ×3 (04:12→10:14)
[2020-01-25] MEDS: Omeprazole 20 MG CAPSULE.DR PO (05:51)
[2020-01-25 08:00] VITALS: BP 159/60; PULSE 83; RESP 19; TEMP 36.1; O2SAT 100
[2020-01-25] MEDS: amLODIPine Besylate 10 MG TABLET PO (08:47)
[2020-01-25] MEDS: Metoprolol Tartrate 50 MG TABLET PO (08:48)
[2020-01-25] MEDS: Sertraline HCL 25 MG TABLET PO (08:48)
--- NOTE | 2020-01-25 09:02 | PM.PNGS ---
Subjective Subjective Interval history: Upset this morning because his dilaudid was stopped over the weekend and was only given 5mg of oxycodone which did not help his pain. Has been ambulating and OOB. Passing flatus and had a BM yesterday. <Noelle Morris PA-C Last Filed: 01/25/20 09:08> Physical Exam Vital Signs: Vital Signs: Vital Signs Temp Pulse Resp BP Pulse Ox 01/25/20 08:00 96.9 F 83 19 159/60 H 100 01/25/20 04:04 98.1 F 75 19 157/94 H 99 01/24/20 23:02 96.9 F 74 19 136/85 95 01/24/20 19:30 97.3 F 75 18 143/86 H 97 01/24/20 15:24 97.3 F 68 18 145/85 H 96 01/24/20 11:38 97.7 F 70 126/76 98 01/24/20 09:24 91 150/97 H Body Mass Index 34.7 <Noelle Morris PA-C Last Filed: 01/25/20 09:08> Const: General: comfortable, no acute distress and alert <ALEXSANDRA Kang Last Filed: 01/25/20 09:08> Orientation/consciousness: patient oriented x3 <ALEXSANDRA Kang Last Filed: 01/25/20 09:08> Eyes: Sclerae: sclerae normal <ALEXSANDRA Kang Last Filed: 01/25/20 09:08> Resp: Effort & Inspection: normal respiratory effort <ALEXSANDRA Kang Last Filed: 01/25/20 09:08> Cardio: Rate: regular rate <ALEXSANDRA Kang Last Filed: 01/25/20 09:08> GI: Inspection: No distended, Yes incision (erythema improved, now only with erythema surrounding rita) and Yes other (serous drainage from midline incision centrally) <ALEXSANDRA Kang Last Filed: 01/25/20 09:08> Palpation (GI): Soft to palpation, Tenderness to palpation present (GI) (mild, incisional), no guarding, not rigid and No Rebound tenderness present <Noelle Morris PA-C - Last Filed: 01/25/20 09:08> Auscultation: normal bowel sounds <Noelle Morris PA-C - Last Filed: 01/25/20 09:08> Skin: General skin exam: no rashes or lesions noted <Noelle Morris PA-C - Last Filed: 01/25/20 09:08> Neuro: General: patient oriented x3 <Noelle Morris PA-C - Last Filed: 01/25/20 09:08> Extrem: General: Yes no clubbing, cyanosis or edema <Noelle Morris PA-C - Last Filed: 01/25/20 09:08> Progress Note: A&P Assessment and plan (1) S/P colostomy takedown: Status: Acute <Noelle Morris PA-C - Last Filed: 01/25/20 09:08> Assessment and Plan: Reports difficulty with pain control after the adjustment of narcotics over the weekend. Now moving bowels. Educated reduction in narcotics is to improve bowel function. Continue bowel regimen. Will advance back to low residue diet. Will add oxycodone 10mg PO PRN, tylenol 600mg PO TID and ibuprofen 600MG TID PRN. Incisional erythema improved, serous drainage from midline incision. Will reassess later day, if comfortable, stable for d/c to home. Pt requesting VNA services. <Noelle Morris PA-C - Last Filed: 01/25/20 09:08> Agree with the above assessment and plan. Patient now with return of bowel function, tolerating diet. Reports increased abdominal incision pain when pain meds decreased. Possible discharge later today if better pain control. <Ricco Echevarria MD - Last Filed: 01/25/20 10:43> (2) Sigmoid diverticulitis: Status: Acute <Noelle Morris PA-C - Last Filed: 01/25/20 09:08> Fall Risk Details Current Medications: Current Medications Generic Name Dose Route Start Last Admin Trade Name Freq PRN Reason Stop Dose Admin Al Hydroxide/Mg Hydroxide 30 ml 01/18/20 10:11 Magnesium Hydrox/Alum Hydrox 30 Ml Oral.Susp PO Q4H PRN Heartburn/Nausea Amlodipine Besylate 10 mg 01/19/20 17:00 01/25/20 08:47 Amlodipine Besylate 10 Mg Tablet PO 10 mg DAILY SHARIF Administration Protocol Bisacodyl 10 mg 01/23/20 18:08 Bisacodyl 10 Mg Supp.Rect VT BEDTIME PRN Constipation Docusate Sodium 100 mg 01/25/20 07:47 Docusate Sodium 100 Mg Capsule PO BID PRN constipation Gabapentin 300 mg 01/18/20 21:00 01/24/20 21:07 Gabapentin 300 Mg Capsule PO 300 mg BEDTIME SHARIF Administration Metoprolol Tartrate 50 mg 01/20/20 09:00 01/25/20 08:48 Metoprolol Tartrate 50 Mg Tablet PO 50 mg DAILY SHARIF Administration Protocol Omeprazole 20 mg 01/20/20 07:30 01/25/20 05:51 Omeprazole 20 Mg Capsule.Dr PO 20 mg DAILY@0630 SHARIF Administration Ondansetron HCl 4 mg 01/18/20 10:11 01/23/20 20:29 Ondansetron Hcl 4 Mg/2 Ml Vial IVPUSH 4 mg Q8H PRN Administration Nausea and Vomiting Oxycodone HCl 5 mg 01/24/20 10:39 01/25/20 08:52 Oxycodone Hcl Immed Release 5 Mg Tablet PO 5 mg Q4H PRN Administration Breakthrough Pain Polyethylene Glycol 17 gm 01/25/20 09:00 01/25/20 08:52 Polyethylene Glycol 3350 17 Gm Powd.Pack PO Not Given DAILY SHARIF Sertraline HCl 25 mg 01/19/20 09:00 01/25/20 08:48 Sertraline Hcl 25 Mg Tablet PO 25 mg DAILY SHARIF Administration Sodium Chloride 3 ml 01/18/20 16:00 01/24/20 21:08 0.9 % Sodium Chloride Flush 3 Ml Syringe IVFLUSH 3 ml QSHIFT SHARIF Administration <Noelle Morris PA-C - Last Filed: 01/25/20 09:08> Time Spent With Patient Time: Total time spent is greater than 50% in coordination of care (as documented) at patient's floor/unit and/or counseling patient: <Noelle Morris PA-C - Last Filed: 01/25/20 09:08> Time with patient: 15 - 24 minutes <Noelle Morris PA-C - Last Filed: 01/25/20 09:08> Progress Note: Quality VTE Deep Vein Thrombosis/Pulmonary Embolism Present on Admission: No <Noelle Morris PA-C - Last Filed: 01/25/20 09:08>
[2020-01-25] MEDS: 0.9 % Sodium Chloride Flush 3 ML SYRINGE IVFLUSH ×2 (10:15→16:03)
[2020-01-25 12:00] VITALS: BP 145/50; PULSE 72; RESP 19; TEMP 36.3
[2020-01-25 16:00] VITALS: BP 169/89; PULSE 74; RESP 18; TEMP 36.2; O2SAT 98
[2020-01-25] MEDS: oxyCODONE HCl Immed Release 5 MG TABLET 10 MG PO ×2 (16:01→21:20)
[2020-01-25 19:09] VITALS: BP 150/82; PULSE 80; RESP 20; TEMP 36.5; O2SAT 96
[2020-01-25] MEDS: Gabapentin 300 MG CAPSULE PO (21:20)
[2020-01-25 23:21] VITALS: BP 138/80; PULSE 83; RESP 20; TEMP 36.4; O2SAT 96
[2020-01-26] MEDS: 0.9 % Sodium Chloride Flush 3 ML SYRINGE IVFLUSH ×2 (01:19→07:05)
[2020-01-26] MEDS: oxyCODONE HCl Immed Release 5 MG TABLET 10 MG PO (01:21)
[2020-01-26 03:42] VITALS: BP 138/70; PULSE 78; RESP 19; TEMP 36.8; O2SAT 96
[2020-01-26] MEDS: Omeprazole 20 MG CAPSULE.DR PO (06:07)
[2020-01-26] MEDS: Metoprolol Tartrate 50 MG TABLET PO (07:56)
[2020-01-26] MEDS: amLODIPine Besylate 10 MG TABLET PO (07:56)
[2020-01-26] MEDS: polyethylene glycoL 3350 17 GM POWD.PACK PO (07:56)
[2020-01-26] MEDS: Sertraline HCL 25 MG TABLET PO (07:57)
[2020-01-26 08:00] VITALS: BP 176/93; PULSE 78; RESP 19; TEMP 36; O2SAT 98
--- NOTE | 2020-01-26 08:22 | PM.PNGS ---
Subjective Subjective Interval history: Pain better controlled. Has been OOB and ambulating without difficulty. Passing flatus and having daily BM. Tolerating solid diet. Worried about going home and having to do more for himself. <ALEXSANDRA Kang Last Filed: 01/26/20 08:27> Physical Exam Vital Signs: Vital Signs: Vital Signs Temp Pulse Resp BP Pulse Ox 01/26/20 08:00 96.8 F 78 19 176/93 H 98 01/26/20 03:42 98.2 F 78 19 138/70 96 01/25/20 23:21 97.6 F 83 20 138/80 96 01/25/20 19:09 97.7 F 80 20 150/82 H 96 01/25/20 16:00 97.1 F 74 18 169/89 H 98 01/25/20 12:00 97.4 F 72 19 145/50 H Body Mass Index 34.7 <ALEXSANDRA Kang Last Filed: 01/26/20 08:27> Const: General: healthy appearing, comfortable, no acute distress and alert <Noelle Morris PA-C Gaby Last Filed: 01/26/20 08:27> Orientation/consciousness: patient oriented x3 <Noelle Morris PA-C Gaby Filed: 01/26/20 08:27> Eyes: Sclerae: sclerae normal <Noelle Morris PA-C Gaby Last Filed: 01/26/20 08:27> Resp: Effort & Inspection: normal respiratory effort <Noelle Morris PA-C Gaby Filed: 01/26/20 08:27> Cardio: Rate: regular rate <Noelle Morris PA-C Gaby Last Filed: 01/26/20 08:27> GI: Inspection: Yes incision (serous drainage centrally, dressing changed by Dr. Echevarria) <ALEXSANDRA Kang Last Filed: 01/26/20 08:27> Palpation (GI): Soft to palpation, Tenderness to palpation present (GI) (mild, incisional), no guarding, not rigid and No Rebound tenderness present <ALEXSANDRA Kang Last Filed: 01/26/20 08:27> Skin: General skin exam: no rashes or lesions noted <Noelle Morris PA-C - Last Filed: 01/26/20 08:27> Neuro: General: patient oriented x3 <Noelle Morris PA-C - Last Filed: 01/26/20 08:27> Extrem: General: Yes no clubbing, cyanosis or edema <Noelle Morris PA-C - Last Filed: 01/26/20:27> Progress Note: A&P Assessment and plan (1) Sigmoid diverticulitis: Status: Acute <ALEXSANDRA Kang Last Filed: 01/26/20:27> (2) S/P colostomy takedown: Status: Acute <Noelle Morris PA-C - Last Filed: 01/26/20 08:27> Assessment and Plan: Doing well, pain better controlled, having daily BM. Hesitant about going home but has been very independent here in ADLs. VSS. Abd exam benign, dressings changed this am by Dr. Echevarria. Patient ready and stable for discharge to home today. D/c with VNA services. Patient agrees with plan. Has f/u scheduled with Dr. Echevarria in office. <Noelle Morris PA-C - Last Filed: 01/26/20 08:27> Patient is somewhat tearful this morning because he was not able to sleep without medications. He is up ambulating well without assistance. Abdominal dressings changed. Some serous discharge noted from the lower incision. [place] otherwise intact. No drainage from the colostomy site. ABD pad applied. Agree with the above assessment and plan. Discharged to home with VNA services for wound checks. Follow-up in office in 1 week. <Ricco Echevarria MD - Last Filed: 01/26/20 08:48> (3) Hypertension: Status: Acute <ALEXSANDRA Kang Last Filed: 01/26/20 08:27> Assessment and Plan: Home meds resumed, has been slightly elevated here. Takes BP at home- SBP normally 130s. Educated to continue taking daily home BPs, schedule f/u appt with PCP regarding BP. <ALEXSANDRA Kang Last Filed: 01/26/20 08:27> Fall Risk Details Current Medications: Current Medications Generic Name Dose Route Start Last Admin Trade Name Ino PRN Reason Stop Dose Admin Acetaminophen 650 mg 01/25/20 09:08 Acetaminophen 325 Mg Tablet PO Q6H PRN Pain and Fever Al Hydroxide/Mg Hydroxide 30 ml 01/18/20 10:11 Magnesium Hydrox/Alum Hydrox 30 Ml Oral.Susp PO Q4H PRN Heartburn/Nausea Amlodipine Besylate 10 mg 01/19/20 17:00 01/26/20 07:56 Amlodipine Besylate 10 Mg Tablet PO 10 mg DAILY SHARIF Administration Protocol Bisacodyl 10 mg 01/23/20 18:08 Bisacodyl 10 Mg Supp.Rect MS BEDTIME PRN Constipation Docusate Sodium 100 mg 01/25/20 07:47 Docusate Sodium 100 Mg Capsule PO BID PRN constipation Gabapentin 300 mg 01/18/20 21:00 01/25/20 21:20 Gabapentin 300 Mg Capsule PO 300 mg BEDTIME SHARIF Administration Ibuprofen 600 mg 01/25/20 09:08 Ibuprofen 600 Mg Tablet PO Q8H PRN Pain and Fever Metoprolol Tartrate 50 mg 01/20/20 09:00 01/26/20 07:56 Metoprolol Tartrate 50 Mg Tablet PO 50 mg DAILY SHARIF Administration Protocol Omeprazole 20 mg 01/20/20 07:30 01/26/20 06:07 Omeprazole 20 Mg Capsule.Dr PO 20 mg DAILY@0630 SHARIF Administration Ondansetron HCl 4 mg 01/18/20 10:11 01/23/20 20:29 Ondansetron Hcl 4 Mg/2 Ml Vial IVPUSH 4 mg Q8H PRN Administration Nausea and Vomiting Oxycodone HCl 5 mg 01/24/20 10:39 01/25/20 10:14 Oxycodone Hcl Immed Release 5 Mg Tablet PO 5 mg Q4H PRN Administration Breakthrough Pain Oxycodone HCl 10 mg 01/25/20 09:02 01/26/20 01:21 Oxycodone Hcl Immed Release 5 Mg Tablet PO 10 mg Q4H PRN Administration Pain, Severe (Pain Scale 7-10) Polyethylene Glycol 17 gm 01/25/20 09:00 01/26/20 07:56 Polyethylene Glycol 3350 17 Gm Powd.Pack PO 17 gm DAILY SHARIF Administration Sertraline HCl 25 mg 01/19/20 09:00 01/26/20 07:57 Sertraline Hcl 25 Mg Tablet PO 25 mg DAILY SHARIF Administration Sodium Chloride 3 ml 01/18/20 16:00 01/26/20 07:05 0.9 % Sodium Chloride Flush 3 Ml Syringe IVFLUSH 3 ml QSHIFT SHARIF Administration Zolpidem Tartrate 5 mg 01/26/20 08:05 Zolpidem Tartrate 5 Mg Tablet PO BEDTIME PRN Insomnia <Noelle Morris PA-C - Last Filed: 01/26/20 08:27> Time Spent With Patient Time: Total time spent is greater than 50% in coordination of care (as documented) at patient's floor/unit and/or counseling patient: <ALEXSANDRA Kang Last Filed: 01/26/20 08:27> Time with patient: 15 - 24 minutes <ALEXSANDRA Kang Last Filed: 01/26/20 08:27> Progress Note: Quality VTE Deep Vein Thrombosis/Pulmonary Embolism Present on Admission: No <ALEXSANDRA Kang Last Filed: 01/26/20 08:27>
--- NOTE | 2020-01-26 08:44 | MHC.CM.PN ---
nurse grounds caretaker note eectronic medical record reviewed along with xcase discussed with surgicL P.A. PATIENT WILL BE DISCHARGED HOME TODAY WITH THE [facility] FOR NR[facility]ING FOR POST OP HOME ASSESSMENT ,BRANDANIA SUDHA SYMP[YANDY AND MEDICATION RECONCIALTION . UPDATE CLINICl sent to the [facility] ,informed of discharge today patient to follow up with pcpand syurgerical physician per dischargre instructions
--- NOTE | 2020-01-26 08:48 | P.F2F_ITS ---
Service Date Service Date: 01/26/20 Encounter Date of encounter: 01/26/20 Encounter: Patient was assessed as part of a postoperative check. He is ready for discharge to home but will need VNA services for wound care. He has an area of drainage from his lower incision which will require daily dressing changes. Reasons for Services Signs and symptoms assessed: vital signs, Abdominal examination, dressing changes Reason for jail: wound care and postoperative assessment and/or care MD overseeing care: Ricco Echevarria MD Homebound: Leaving the home is medically contraindicated at this time without the asist of a device and/or another person due th the listed conditions above and below. Reason homebound: pain with ambulation, weakness related to hospital stay and unable to drive Homebound supporting statement: based on today's examination and discussion with the patient I feel patient will need to remain home bound during the early postoperative period after a closure of his colostomy. He has drainage from the incision which will require daily dressing changes which she is unable to perform independently. Certification: Based on the above findings, I certify that this patient is confined to the home and needs intermittent jail care, physical therapy and/or speech therapy, or continues to need occupational therapy. The patient is under my care, and I have initiated the establishment of the plan of care. The patient will be followed by a physician who will periodically review the plan of care.
--- NOTE | 2020-01-27 09:04 | PM.DS ---
DS: Providers Provider Date of admission: 01/18/20 06:37 Primary care physician: Dr. Elisabeth Cisneros DS: Diagnosis Discharge Diagnosis (1) S/P colostomy takedown: Status: Acute (2) Hypertension: Status: Acute (3) Sigmoid diverticulitis: Status: Acute DS: Summary Hospital Course Hospital Course: Brief HPI: Patient is a 49-year-old male with a previous history of perforated sigmoid diverticulitis status post Ammy's procedure. He returns today for closure of his descending colon colostomy. On 01/18/20, a colostomy closure was performed by Dr. Echevarria without complication. The patient tolerated the procedure well and was admitted to the medical/surgical floor for recovery. The patient had an uncomplicated but slow recovery course. On POD #1, he c/o significant incisional pain not relieved by either the dilaudid or oxycodone. The dilaudid was therefore increased with better control. His ruiz was removed. He was ambulated. He had some nausea and was continued on clear liquids. Over the next few post operative days, he began to pass flatus and move his bowels. His nausea subsided and he was advanced to a solid diet. He was doing well post operatively with a clean incision and benign abdominal exam. He had some mild erythema and therefore some rita were removed. The wounds began to have serous drainage and the erythema improved significantly. His WBC downtrended. He, however, stopped passing flatus and began to develop nausea without vomiting. His diet was deescalated back to full liquids. He began to move his bowels again and pass flatus. His pain became controlled with PO analgesics. On the day of discharge, he was tolerating a solid diet without N/V and had good GI function, he was ambulating without difficulty. His abdominal exam was benign with clean incisions. He was discharged to home on 01/26/20 with VNA services for wound care. During the hospital stay, his SBP fluctuated from 150s to high 130s with his home antihypertensives. He is to continue to monitor his BP at home and follow up with his PCP regarding his BP control. Status at Discharge Functional status at discharge: independent ambulation Overall status at discharge: patient is progressing back to baseline Time Spent with Patient Time attestation: Total time spent providing and/or coordinating discharge services: Quality: VTE Deep Vein Thrombosis/Pulmonary Embolism Present on Admission: No Physical Exam Vital Signs: Vital Signs: Body Mass Index 34.7 Const: General: comfortable, no acute distress and alert Orientation/consciousness: patient oriented x3 Eyes: Sclerae: sclerae normal Resp: Effort & Inspection: normal respiratory effort Cardio: Rate: regular rate GI: Inspection: No distended and Yes incision (mild erythema surrounding some rita) Palpation (GI): Soft to palpation, Tenderness to palpation present (GI) (mild, incisional), no guarding, not rigid and No Rebound tenderness present Skin: General skin exam: no rashes or lesions noted Neuro: General: patient oriented x3 Extrem: General: Yes no clubbing, cyanosis or edema DS: Data Data Completed and Pending Completed studies during hospitalization [Text1]: 01/18/20 09:16 Surgical [PTH] Routine Colostomy, excision: Colocutaneous anastomosis with fibrosis, foreign body giant cell reaction and focal acute inflammation; two annular portions of colonic mucosa and wall within normal limits; negative for malignancy. Discharge Plan Discharge Patient Disposition: Home Health Service Referrals: [facility] , pain management , diagnooosis sighn symptm management medication reconcilation transprtation family pcp dr elisabeth cisneros patient to call for post hospitla discharge surgeon follow up per discharge instructions ) Ricco Echevarria MD [Physician] - 01/27/20 Physician,Unknown [Primary Care Provider] - Discharge Medications: New oxycodone 5 mg tablet 5 mg PO Q4H PRN (Reason: pain (scale score 7-10)) Qty: 26 RF: 0 Continued gabapentin 300 mg Capsule 300 mg PO BEDTIME RF: 0 sertraline 25 mg Tablet 25 mg PO DAILY RF: 0 Discontinued magnesium citrate [Citrate of Magnesia] Solution 300 ml PO ONCE Qty: 296 RF: 0 neomycin 500 mg tablet 1 g PO TID Qty: 3 RF: 0 erythromycin 500 mg tablet 1,000 mg PO .COMPLEX Qty: 6 RF: 0 Discharge Orders: Discharge Order (Routine); Ordered 01/26/20 Ordered By: Noelle Morris Diet: other Activity on Discharge: No heavy lifting Discharge Date/Time: 01/26/20 09:32 Activity Restrictions/Additional Instructions: If the incision area is tender, you may apply an ice pack for short intervals (No more than 20 minutes on, followed by at least 20 minutes off). Do not apply heat. Do not use creams, lotions, or topical antibiotics unless instructed to do so by your surgeon. These can cause infection or allergic reaction. Ok to shower. You have rita closing your incision and these will be removed approximately 10-14 days after surgery. Diet: Low residue diet Dry 4x4 and abdominal dressing to incision daily and as needed for drainage. Continue to take BP at home daily. Call PCP for f/u appt regarding blood pressure. Call Your Doctor If: -Your temperature exceeds 101.5? F -You experience excessive pain or swelling -You have an unexpected reaction to medication -You have excessive bleeding -You experience continued vomiting/nausea -Your incision begins to separate -Your incision shows signs of infection such as increased redness, swelling, excessive pain, drainage (light blood or clear fluid is normal) or heat Visit Report Forms: Patient Portal Discharge page Care Plan Goals: Return to baseline health and activity Health Concerns: Perforated diverticulitis requiring hartmanns procedure, now s/p colostomy take down Plan of Treatment: Pain control, discharge to home
== END 2020-01-26 09:32 | disposition home health service (06) | DRG 223 ==
LOC: HO.SSSA 06:39 → HO.S3 10:44
PROVIDERS: Physician Assistant Surgical; Admitting Provider Surgery; Visit Provider Surgery
PROC: 0DSN0ZZ Reposition Sigmoid Colon, Open Approach (ICD-10-PCS; CPT 44620; principal; 2020-01-18 07:30)
DX: Z43.3 Encounter for attention to colostomy (principal); E78.5 Hyperlipidemia, unspecified; F41.9 Anxiety disorder, unspecified; K21.9 Gastro-esophageal reflux disease without esophagitis; I10 Essential (primary) hypertension; Z20.828 Contact with and (suspected) exposure to other viral communicable diseases; Z88.5 Allergy status to narcotic agent; Z79.82 Long term (current) use of aspirin; Z79.899 Other long term (current) drug therapy
CPT/HCPCS: 36415; 80048; 85025; 85027; 87635; 88304; 88305; 99232; J0131; J0330; J1100; J1170; J2250; J2405; J3010

== ENCOUNTER → 2020-01-27 09:36 | Outpatient (BNVA) | payer OTHER, SELFPAY | PROVIDERS: PCP Internal Medicine; Visit Provider Surgery | DX: Z48.815 Encounter for surgical aftercare following surgery on the digestive system (principal); Z48.01 Encounter for change or removal of surgical wound dressing | CPT/HCPCS: 99212 ==

== ENCOUNTER → 2020-02-03 12:48 | Outpatient (BNVA) | payer OTHER, SELFPAY | PROVIDERS: PCP Internal Medicine; Visit Provider Surgery | DX: Z48.815 Encounter for surgical aftercare following surgery on the digestive system (principal); Z48.02 Encounter for removal of sutures | CPT/HCPCS: 99212 ==

== ENCOUNTER 2020-02-15 15:02 | Inpatient (IN) | payer OTHER, SELFPAY ==
[2020-02-15] VITALS (9 sets, daily range): BP systolic 144–194; BP diastolic 93–131; PULSE 75–97; RESP 17–20; TEMP 36.2–36.9; O2SAT 97–98; BMI 38.0
--- NOTE | 2020-02-15 18:26 | XR_ITS ---
EXAMINATION: XR CHEST CLINICAL INFORMATION: Chest pain COMPARISON: Chest x-ray 07/16/2018 TECHNIQUE: Frontal view of the chest was obtained. 6:46 PM FINDINGS: Status post median sternotomy for cardiac valve repair. Cardiac and mediastinal contours are normal. No pulmonary vascular congestion. The lungs are clear. There is no pleural effusion or pneumothorax. XR/XR chest 1V IMPRESSION: No acute abnormality of chest.
--- NOTE | 2020-02-15 18:26 | ECG_ITS ---
Test Reason : CHEST PAIN Blood Pressure : / mmHG Vent. Rate : 091 BPM Atrial Rate : 091 BPM P-R Int : 144 ms QRS Dur : 096 ms QT Int : 382 ms P-R-T Axes : 055 035 053 degrees QTc Int : 469 ms Normal sinus rhythm Normal ECG When compared with ECG of 21-OCT-2019 10:22, No significant change was found Referred By: Dominga Brantley Electronically Signed By:SHANELLE MAURICIO MD
--- NOTE | 2020-02-15 18:31 | ED_ITS ---
HPI - Chest Pain General Chief Complaint: Chest Pain Stated Complaint: CHEST PAIN Time Seen by Provider: 02/15/20 18:26 Source: patient Mode of arrival: ambulatory Limitations: no limitations History of Present Illness HPI narrative: 49 y/o male with history of perforated sigmoid diverticulitis s/p Ammy's procedure and subsequent closure of descending colon colostomy on 01/17, hx HTN, HLD, anxiety & GERD who presents today with worsening right sided chest wall pain for the last 5 days associated with SOB and back pain. He also reports chills, sweats dizziness and myalgias. He reports abdominal bloating fee ling after urination, increased urinary frequency and feeling like he isn't fully emptying his bladder. He also has nausea and green diarrhea. He still have [facility]NA services at home after his surgery and they encouraged him to come into the ER for further evaluation. MD complaint: chest pain Pertinent past history: CABG Onset (ago): day(s) (5) Timing of current episode: constant, increasing and still present Prior episodes: No Onset: during rest Pain location: right chest Pain radiation: back Severity: moderate Quality: aching Relieving factors: rest Exacerbating factors: palpation and movement Context: recent surgery and recent immobilization Associated symptoms: nausea and diaphoresis Treatment prior to arrival: aspirin Risk Factors Coronary artery disease risk factors: hyperlipidemia and hypertension Thoracic aortic dissection risk factors: none Pulmonary embolism risk factors: immobilization Related Data Home Medications Medication Instructions Recorded Confirmed amlodipine 10 mg tablet 10 mg PO DAILY 12/28/19 02/15/20 aspirin 81 mg tablet,delayed 81 mg PO DAILY 12/28/19 02/15/20 release atorvastatin 20 mg tablet 20 mg PO DAILY 12/28/19 02/15/20 baclofen 10 mg tablet 10 mg PO TID 12/28/19 02/15/20 cyclobenzaprine 10 mg tablet 10 mg PO BEDTIME 12/28/19 02/15/20 dicyclomine 20 mg tablet 20 mg PO TID 12/28/19 02/15/20 docusate sodium 100 mg capsule 100 mg PO DAILY 12/28/19 02/15/20 metoprolol tartrate 50 mg tablet 50 mg PO DAILY 12/28/19 02/15/20 nystatin 500,000 unit tablet 500,000 unit PO QID 12/28/19 02/15/20 omeprazole 20 mg capsule,delayed 20 mg PO DAILY 12/28/19 02/15/20 release gabapentin 300 mg PO BEDTIME 01/07/20 02/15/20 sertraline 25 mg PO DAILY 01/07/20 02/15/20 Previous Rx's Medication Instructions Recorded oxycodone 5 mg PO Q4H PRN #26 tab 01/22/20 Allergies Allergy/AdvReac Type Severity Reaction Status Date / Time morphine [MORPHINE] Allergy Unknown HIVES, rash Verified 02/15/20 16:27 Review of Systems Review of Systems: Constitutional: No Fever, + Chills ENT/Mouth: No sore throat, No Rhinorrhea, No Swallowing Difficulty Eyes: No Eye Pain, No Swelling, No Redness Cardiovascular: + Chest Pain, + SOB, No Orthopnea, No Edema Respiratory: No Cough, No Sputum, No Wheezing, No dyspnea Gastrointestinal: + Nausea, No Vomiting, No Diarrhea, + abdominal Pain, No Hematochezia, No Melena Genitourinary: + Dysuria, + Urinary Frequency, No Hematuria Musculoskeletal: No joint pain, + Myalgias Skin: No Skin Lesions, No rash Neuro: + Weakness, No Numbness, + Dizziness, + Headache Psych: No Anxiety/Panic, No Depression Heme/Lymph: No Bruising, No Lymphadenopathy Endocrine: No Polyuria, No Polydipsia PMFSH Past Medical History Medical History Anxiety Constipation GERD (gastroesophageal reflux disease) History of diverticulitis Hyperlipidemia Hypertension Mitral valve disease Right ankle pain Surgical History H/O mitral valve repair Status post Ammy procedure (10/21/19) Family History Family History Mother No problems noted. Father No problems noted. Social History Social History Alcohol intake: never Smoking Status: Never smoker Second Hand Smoke Exposure: No Advance Directives: No Advance Directives Information Provided: Yes service: No Current occupational status: unemployed Physical Exam Vital Signs: Vital Signs: Last Vital Signs Temp 97.9 F 02/15/20 23:19 Pulse 75 02/15/20 23:19 Resp 20 02/15/20 23:19 BP 144/93 H 02/15/20 23:19 Pulse Ox 97 02/15/20 23:19 Body Mass Index 38.0 Appearance: Alert. Oriented X3. No acute distress. Eyes: Pupils equal, round and reactive to light. ENT: Pharynx normal. Neck: Normal inspection. Neck supple. CVS: Normal heart rate and rhythm. Pulses normal. Right anterior chest wall tenderness, mid thoracic back tenderness Respiratory: No respiratory distress. Breath sounds normal. Abdomen: Soft, diffusely tender with well healing scars consistent with reversed colostomy. suprapubic tenderness. decreased bowel sounds Skin: Skin warm and dry. Normal skin color. Normal skin turgor. No rashes. Extremities: No lower extremity edema. Muscular tenderness of bilateral LE. Neuro: Oriented X 3. No motor deficit. No sensory deficit. Course Course Course Narrative: 49 yo male s/p recent abdominal surgeries presenting with multiple complaints including chest pain, SOB, lower abdominal pain and urinary symptoms. He also reports nausea and green stool. History of C diff in November. Will check C diff. Need to r/o PE and ACS. EKG is normal. His right sided chest pain is reproducible and consistent with muscular pain. CTA ordered to r/o PE given recent surgery. Abd CT ordered as well to r/o obstruction. Reevaluation(s) Reevaluation #1: CTA chest negative for PE. CT abd showed ab abdominal wall abscess that extends toward the colonic anasto mosis. WBC 17 - of note he had leukocytosis during all visits, including his last visit. No fevers here or evidence for severe sepsis. Patient has been hypertensive, likely pain related. Given dilaudid and dose of oral lopressor. Spoke with Dr. Echevarria - he will admit for IV antibiotics, pain control and drainage of the abscess. Discussed results and admission with the patient. MDM - Chest Pain Differential Diagnosis Differential diagnosis: Likely pneumothorax, stable angina, atypical chest pain, st elevation myocardial infarction, costochondritis, chest pain and biliary colic Lab Data Result diagrams: 02/15/20 19:26 02/15/20 19:26 Labs: Lab Results 02/15/20 02/15/20 02/15/20 Range/Units 19:26 19:26 19:26 WBC 17.7 H (4.8-10.8) X10*3/uL RBC 5.35 (4.60-5.80) X10*6/uL Hgb 14.8 (14.0-18.0) g/dl Hct 46.3 (42-52) % MCV 86.5 (80-98) fL MCH 27.7 (27.0-33.0) pg MCHC 32.0 (31.0-36.0) g/dl RDW 14.6 (11.0-16.0) % Plt Count 341 (160-400) X10*3/uL MPV 11.7 (9.4-12.4) fL Immature Gran % (Auto) 0.5 H (0.0-0.4) % Neut % (Auto) 71.4 (45-73) % Lymph % (Auto) 20.5 (20-40) % [facility] % (Auto) 6.7 (2-11) % Eos % (Auto) 0.6 (0-4) % Baso % (Auto) 0.3 (0-2) % Lymph # (Auto) 3.6 (1.2-4.9) X10*3/uL [facility] # (Auto) 1.2 (0.1-1.2) X10*3/uL Eos # (Auto) 0.1 (0.0-0.4) X10*3/uL Baso # (Auto) 0.1 (0.0-0.2) X10*3/uL Abs Immat Gran (auto) 0.08 H (0.00-0.03) X10*3/uL Absolute Neuts (auto) 12.6 H (2.0-8.3) X10*3/uL Absolute Nucleated RBC 0.000 (0.0-0.012) X10*3/uL Nucleated RBC % (auto) 0.0 (0.0-0.2) /100WBC D-Dimer NG/ML Sodium 138 (135-145) mmol/L Potassium 4.1 (3.3-5.1) mmol/l Chloride 103 (96-108) mmol/L Carbon Dioxide 25 (22-29) mmol/L Anion Gap 14 (12-20) BUN 11 (9-16) mg/dL Creatinine 1.45 H (0.5-1.4) mg/dL Estim Creat Clear Calc 72.2 Estimated GFR 52 Random Glucose 82 (60-115) mg/dL Lactic Acid (0.5-2.0) mmol/L Calcium 8.7 (8.4-10.2) mg/dL Total Bilirubin 0.4 (0.0-1.0) mg/dL Direct Bilirubin < 0.2 (0.0-0.5) mg/dL AST 16 (5-37) U/L ALT 28 (0-40) U/L Alkaline Phosphatase 37 L (39-117) U/L Troponin I High Sens 4.2 (<3.5-35.0) ng/L Total Protein 7.8 (6.5-8.0) g/dL Albumin 4.1 (3.5-5.0) g/dL Urine Color Urine Appearance Urine pH (5.0-8.0) Ur Specific [place] (1.005-1.025) Urine Protein (NEG-TRACE) MG/DL Urine Glucose (UA) (NEG) MG/DL Urine Ketones (NEG) MG/DL Urine Blood (NEG) Urine Nitrite (NEG) Ur Leukocyte Esterase (NEG) Urine RBC (0) /HPF Urine WBC (0-4) /HPF Ur Squamous Epith Cells /LPF Urine Bacteria /LPF Coronavirus (PCR) (Negative) Influenza Type A (PCR) (Negative) Influenza Type B (PCR) (Negative) RSV RNA Qual (PCR) (Negative) 02/15/20 02/15/20 02/15/20 Range/Units 19:26 19:26 19:26 WBC (4.8-10.8) X10*3/uL RBC (4.60-5.80) X10*6/uL Hgb (14.0-18.0) g/dl Hct (42-52) % MCV (80-98) fL MCH (27.0-33.0) pg MCHC (31.0-36.0) g/dl RDW (11.0-16.0) % Plt Count (160-400) X10*3/uL MPV (9.4-12.4) fL Immature Gran % (Auto) (0.0-0.4) % Neut % (Auto) (45-73) % Lymph % (Auto) (20-40) % [facility] % (Auto) (2-11) % Eos % (Auto) (0-4) % Baso % (Auto) (0-2) % Lymph # (Auto) (1.2-4.9) X10*3/uL [facility] # (Auto) (0.1-1.2) X10*3/uL Eos # (Auto) (0.0-0.4) X10*3/uL Baso # (Auto) (0.0-0.2) X10*3/uL Abs Immat Gran (auto) (0.00-0.03) X10*3/uL Absolute Neuts (auto) (2.0-8.3) X10*3/uL Absolute Nucleated RBC (0.0-0.012) X10*3/uL Nucleated RBC % (auto) (0.0-0.2) /100WBC D-Dimer 640 NG/ML Sodium (135-145) mmol/L Potassium (3.3-5.1) mmol/l Chloride (96-108) mmol/L Carbon Dioxide (22-29) mmol/L Anion Gap (12-20) BUN (9-16) mg/dL Creatinine (0.5-1.4) mg/dL Estim Creat Clear Calc Estimated GFR Random Glucose (60-115) mg/dL Lactic Acid (0.5-2.0) mmol/L Calcium (8.4-10.2) mg/dL Total Bilirubin (0.0-1.0) mg/dL Direct Bilirubin (0.0-0.5) mg/dL AST (5-37) U/L ALT (0-40) U/L Alkaline Phosphatase (39-117) U/L Troponin I High Sens (<3.5-35.0) ng/L Total Protein (6.5-8.0) g/dL Albumin (3.5-5.0) g/dL Urine Color YELLOW Urine Appearance CLEAR Urine pH 5.5 (5.0-8.0) Ur Specific [place] 1.025 (1.005-1.025) Urine Protein NEG (NEG-TRACE) MG/DL Urine Glucose (UA) NEG (NEG) MG/DL Urine Ketones NEG (NEG) MG/DL Urine Blood 1+ H (NEG) Urine Nitrite NEG (NEG) Ur Leukocyte Esterase NEG (NEG) Urine RBC 0-2 (0) /HPF Urine WBC 0 (0-4) /HPF Ur Squamous Epith Cells NONE /LPF Urine Bacteria NONE /LPF Coronavirus (PCR) NEGATIVE (Negative) Influenza Type A (PCR) NEGATIVE (Negative) Influenza Type B (PCR) NEGATIVE (Negative) RSV RNA Qual (PCR) NEGATIVE (Negative) 02/15/20 Range/Units 21:05 WBC (4.8-10.8) X10*3/uL RBC (4.60-5.80) X10*6/uL Hgb (14.0-18.0) g/dl Hct (42-52) % MCV (80-98) fL MCH (27.0-33.0) pg MCHC (31.0-36.0) g/dl RDW (11.0-16.0) % Plt Count (160-400) X10*3/uL MPV (9.4-12.4) fL Immature Gran % (Auto) (0.0-0.4) % Neut % (Auto) (45-73) % Lymph % (Auto) (20-40) % [facility] % (Auto) (2-11) % Eos % (Auto) (0-4) % Baso % (Auto) (0-2) % Lymph # (Auto) (1.2-4.9) X10*3/uL [facility] # (Auto) (0.1-1.2) X10*3/uL Eos # (Auto) (0.0-0.4) X10*3/uL Baso # (Auto) (0.0-0.2) X10*3/uL Abs Immat Gran (auto) (0.00-0.03) X10*3/uL Absolute Neuts (auto) (2.0-8.3) X10*3/uL Absolute Nucleated RBC (0.0-0.012) X10*3/uL Nucleated RBC % (auto) (0.0-0.2) /100WBC D-Dimer NG/ML Sodium (135-145) mmol/L Potassium (3.3-5.1) mmol/l Chloride (96-108) mmol/L Carbon Dioxide (22-29) mmol/L Anion Gap (12-20) BUN (9-16) mg/dL Creatinine (0.5-1.4) mg/dL Estim Creat Clear Calc Estimated GFR Random Glucose (60-115) mg/dL Lactic Acid 0.9 (0.5-2.0) mmol/L Calcium (8.4-10.2) mg/dL Total Bilirubin (0.0-1.0) mg/dL Direct Bilirubin (0.0-0.5) mg/dL AST (5-37) U/L ALT (0-40) U/L Alkaline Phosphatase (39-117) U/L Troponin I High Sens (<3.5-35.0) ng/L Total Protein (6.5-8.0) g/dL Albumin (3.5-5.0) g/dL Urine Color Urine Appearance Urine pH (5.0-8.0) Ur Specific [place] (1.005-1.025) Urine Protein (NEG-TRACE) MG/DL Urine Glucose (UA) (NEG) MG/DL Urine Ketones (NEG) MG/DL Urine Blood (NEG) Urine Nitrite (NEG) Ur Leukocyte Esterase (NEG) Urine RBC (0) /HPF Urine WBC (0-4) /HPF Ur Squamous Epith Cells /LPF Urine Bacteria /LPF Coronavirus (PCR) (Negative) Influenza Type A (PCR) (Negative) Influenza Type B (PCR) (Negative) RSV RNA Qual (PCR) (Negative) ECG Data ECG #1: Attestation: I personally reviewed and interpreted this ECG as follows: Interpretation: normal sinus rhythm, HR 91 BPM, normal LA interval, no changes to suggest ischemia Critical Care Time Critical Care Time Critical Care Time: No Discharge Plan Discharge Clinical Impression: Abdominal wall abscess Prescriptions: No Action gabapentin 300 mg Capsule 300 mg PO BEDTIME RF: 0 sertraline 25 mg Tablet 25 mg PO DAILY RF: 0 oxycodone 5 mg tablet 5 mg PO Q4H PRN (Reason: pain (scale score 7-10)) Qty: 26 RF: 0 atorvastatin 20 mg tablet 20 mg PO DAILY RF: 0 amlodipine 10 mg tablet 10 mg PO DAILY RF: 0 aspirin [Adult Low Dose Aspirin] 81 mg tablet,delayed release (DR/EC) 81 mg PO DAILY RF: 0 omeprazole 20 mg capsule,delayed release(DR/EC) 20 mg PO DAILY RF: 0 docusate sodium 100 mg capsule 100 mg PO DAILY RF: 0 metoprolol tartrate 50 mg tablet 50 mg PO DAILY RF: 0 cyclobenzaprine 10 mg tablet 10 mg PO BEDTIME RF: 0 dicyclomine 20 mg tablet 20 mg PO TID RF: 0 nystatin 500,000 unit tablet 500,000 unit PO QID RF: 0 baclofen 10 mg tablet 10 mg PO TID RF: 0
--- NOTE | 2020-02-15 19:02 | CT_ITS ---
EXAMINATION: CT ABDOMEN AND PELVIS WITH CONTRAST CLINICAL INFORMATION: Abdominal pain, nausea, status post recent colostomy reversal. COMPARISON: None TECHNIQUE: Multidetector volumetric images were obtained from the superior aspect of the liver through the pubic symphysis following administration 75 mL of Omnipaque 350 intravenous contrast. Sagittal and coronal reformatted images were obtained on the technologist's workstation. Oral Contrast: No. This CT examination was performed using dose optimization techniques as appropriate, variously including the following: *Automated exposure control. *Adjustment of mA and/or kV according to patient size (this includes techniques or standardized protocols for targeted exams where dose is matched to indication/reason for exam; i.e. extremities or head). *Use of iterative reconstruction technique. DLP: 813 mGy-cm FINDINGS: LUNG BASES: The visualized lung bases are unremarkable. LIVER, GALLBLADDER, AND BILIARY TREE: The liver is normal in size, shape, and attenuation. No focal hepatic lesion or biliary ductal dilatation is present. The gallbladder is unremarkable with no evidence of radiopaque gallstones, gallbladder wall thickening, or obvious pericholecystic inflammatory changes. PANCREAS: Unremarkable. SPLEEN: Unremarkable. ADRENAL GLANDS: Unremarkable. KIDNEYS AND URETERS: The kidneys are normal in size, shape, and attenuation. There is an unchanged non-obstructing 2 mm left midpole calculus. No hydronephrosis, hydroureter, or other calculi seen. No perinephric stranding. BLADDER: There is a urachal-type remnant that extends up towards the inflammatory process at the periumbilical area (see below) and appears slightly thickened, more so than previously. No bladder masses or calculi are seen. GASTROINTESTINAL TRACT: Patient is status post sigmoid resection with re-anastomosis seen. There is some mild inflammatory changes extending from this anastomosis towards the anterior abdominal wall (see below). Scattered diverticula are seen in the remainder of the colon without evidence of diverticulitis. The small bowel and appendix are unremarkable. ABDOMINAL WALL AND UNDERLYING PERITONEUM: There is an immediately infraumbilical fluid collection, presumably an abscess in the midline measuring 4.4 x 2.9 x 7.2 cm. Inflammatory changes are present in the abdominal wall just superior and to the left of this presumably from recent surgery. A small 0.9 cm rounded nodule is seen close to the midline on the right just above this as well. Inflammatory changes extend from the back of this towards the colonic anastomosis in the right lower quadrant. The superoanterior portion of the bladder also is tented superiorly towards is, almost a urachal remnant. Tiny fat-containing inguinal hernias are present. LYMPH NODES: No retroperitoneal lymphadenopathy. VASCULAR: Unremarkable. PELVIC VISCERA: Prostate and seminal vesicles appear normal. OSSEOUS STRUCTURES: Unremarkable. CT/CT abdomen pelvis w con IMPRESSION: 1. There is a thick-walled fluid collection in the abdominal wall in the midline in the immediate infraumbilical region. Findings are suspicious for an abscess. Inflammatory changes extend towards the colonic anastomosis. A fistula cannot be excluded. This collection would be easily amenable to ultrasound or CT-guided drainage. 2. Other incidental findings as described above.
--- NOTE | 2020-02-15 19:02 | CT_ITS ---
EXAMINATION: CT ANGIOGRAM OF THE CHEST WITH AND WITHOUT CONTRAST (CT PULMONARY ANGIOGRAM FOR PE) CLINICAL INFORMATION: Reason for Exam SOB, chest pain after surgery COMPARISON: Chest radiograph earlier today TECHNIQUE: Prior to contrast administration, noncontrast localization images were obtained. Subsequently, multidetector volumetric imaging was performed from the thoracic inlet to below the diaphragms following the administration of 75 mLOmnipaque 350 intravenous contrast. No contrast reaction reported Sagittal, coronal, and MIP oblique sagittal reformatted images were obtained on the CT workstation, uploaded to PACS, and reviewed. This CT examination was performed using dose optimization techniques as appropriate, variously including the following: *Automated exposure control *Adjustment of mA and/or kV according to patient size (this includes techniques or standardized protocols for targeted exams where dose is matched to indication/reason for exam; i.e. extremities or head) *Use of iterative reconstruction technique Total exam dose-length product 400 mGy-cm FINDINGS: QUALITY OF STUDY/CONTRAST BOLUS: Satisfactory. PULMONARY ARTERIES: No central or segmental pulmonary emboli. THORACIC AORTA: No aneurysm or dissection. LUNG: No focal consolidation, nodules or masses. PLEURA: No pleural effusion or pneumothorax. MEDIASTINUM: Normal heart size. A mitral valve prosthesis is present. No pericardial effusion. No hilar or mediastinal lymphadenopathy. No evidence of septal bowing or right heart strain. CHEST WALL/AXILLA: No axillary or internal mammary lymphadenopathy. OSSEOUS STRUCTURES: No acute or suspicious osseous abnormality. UPPER ABDOMEN: Unremarkable. No reflux of contrast into the hepatic veins to suggest elevated right heart pressures. CT/CT angio chest PE protocol IMPRESSION: No evidence of pulmonary emboli VTE: negative
[2020-02-15 19:38] LABS: MANUAL DIFF FLAG NO
[2020-02-15 19:43] LABS: Basophils Absolute Auto 0.1 X10*3/uL (0.0-0.2); Basophils Percent Auto 0.3 % (0-2); Eosinophils Absolute Auto 0.1 X10*3/uL (0.0-0.4); Eosinophils Percent Auto 0.6 % (0-4); Hematocrit 46.3 % (42-52); Hemoglobin 14.8 g/dl (14.0-18.0); Imm Gran Abs Auto 0.08 X10*3/uL (0.00-0.03); Imm Gran Pct Auto 0.5 % (0.0-0.4); Lymphocytes Absolute Auto 3.6 X10*3/uL (1.2-4.9); Lymphocytes Percent Auto 20.5 % (20-40); Mean Corpuscular Hemoglobin 27.7 pg (27.0-33.0); Mean Corpuscular Volume 86.5 fL (80-98); Mean Platelet Volume 11.7 fL (9.4-12.4); Monocytes Absolute Auto 1.2 X10*3/uL (0.1-1.2); Monocytes Percent Auto 6.7 % (2-11); Neutrophils Absolute Auto 12.6 X10*3/uL (2.0-8.3); Neutrophils Percent Auto 71.4 % (45-73); Platelet Count 341 X10*3/uL (160-400); Red Blood Count 5.35 X10*6/uL (4.60-5.80); Red Cell Distribution Width 14.6 % (11.0-16.0); White Blood Count 17.7 X10*3/uL (4.8-10.8)
[2020-02-15 19:49] LABS: Glucose Urine UA NEG (NEG); Leukocyte Esterase Urine NEG (NEG); Nitrite Urine NEG (NEG); PH 5.5 (5.0-8.0); Specific Gravity - Urine 1.025 (1.005-1.025); Urine Blood 1+ (NEG); Urine Ketones NEG (NEG); Urine Protein NEG (NEG-TRACE)
[2020-02-15] MEDS: HYDROmorphone HCl 2 MG TABLET PO (19:49)
[2020-02-15] MEDS: Metoprolol Tartrate 25 MG TABLET PO (19:49)
[2020-02-15 19:50] LABS: Appearance Urine CLEAR; Color Urine YELLOW
[2020-02-15 19:53] LABS: D Dimer 640 NG/ML
[2020-02-15 19:58] LABS: RBC Urine 0-2 /HPF (0); WBC Urine 0 /HPF (0-4)
[2020-02-15 20:08] LABS: Alanine Aminotransferase 28 U/L (0-40); Albumin Level 4.1 g/dL (3.5-5.0); Alkaline Phosphatase 37 U/L (39-117); Anion Gap 14 (12-20); Aspartate Amino Transferase 16 U/L (5-37); Bilirubin Direct < 0.2 mg/dL (0.0-0.5); Bilirubin Total 0.4 mg/dL (0.0-1.0); Blood Urea Nitrogen 11 mg/dL (9-16); Calcium 8.7 mg/dL (8.4-10.2); Carbon Dioxide 25 mmol/L (22-29); Chloride 103 mmol/L (96-108); Creatinine Clr Calc Pharmacy 72.2; Estimated Glomerular Filt Rate 52; Glucose Random 82 mg/dL (60-115); Potassium 4.1 mmol/l (3.3-5.1); Sodium 138 mmol/L (135-145); Total Protein 7.8 g/dL (6.5-8.0)
[2020-02-15 20:14] LABS: Troponin-I High Sensitivity 4.2 ng/L (<3.5-35.0)
[2020-02-15] MEDS: iohexoL 350 MG/ML 100 ML INFUS..BTL IV (20:29)
[2020-02-15] MEDS: 0.9 % Sodium Chloride 1,000 ML 999 ML IVCONT (20:35)
--- NOTE | 2020-02-15 20:40 | PC.NURSE ---
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
[2020-02-15 21:10] LABS: Influenza A PCR NEGATIVE (Negative); Influenza B PCR NEGATIVE (Negative); Resp Syncy Virus RNA Qual PCR NEGATIVE (Negative); SARS COV2 PCR INHOUSE NEGATIVE (Negative)
[2020-02-15] MEDS: ondansetron HCL 4 MG/2 ML VIAL IVPUSH (21:39)
--- NOTE | 2020-02-15 21:47 | PC.NURSE ---
patient medicated for nausea per order
[2020-02-15 21:50] LABS: Lactic Acid 0.9 mmol/L (0.5-2.0)
--- NOTE | 2020-02-15 22:01 | PC.NURSE ---
patient a&ox3, c/o 11/08 rt chest pain, pt continues to be hypertensive, 160/106, monitor worker nsr 70s, will notify provider and continue to monitor.
[2020-02-15] MEDS: HYDROmorphone HCl 0.5 MG/0.5 ML SYRINGE 1 MG IVPUSH (22:44)
[2020-02-15] MEDS: Piperacillin Sodium/Tazobactam 3.375 GM in 0.9 % Sodium Chloride 50 ML IV (22:45)
[2020-02-15] MEDS: Gabapentin 300 MG CAPSULE PO (22:45)
--- NOTE | 2020-02-15 22:50 | PC.NURSE ---
patient medicated per order
--- NOTE | 2020-02-15 23:22 | PC.NURSE ---
Report taken from Vidhya, jerri RN resuming care. Pt found resting in bed at this time, awake and alert, speaking full sentences. Pt states he is pain free after IV Dilaudid. VSS, awaiting room assignment. Continue to monitor.
--- NOTE | 2020-02-15 23:42 | PC.NURSE ---
compounding technician at bedside obtaining repeat Troponin from 2245 that was not drawn.
[2020-02-16] VITALS (14 sets, daily range): BP systolic 118–159; BP diastolic 69–99; PULSE 56–87; RESP 16–20; TEMP 36.1–36.5; O2SAT 97–98; BMI 38.0
[2020-02-16 00:20] LABS: Troponin-I High Sensitivity 4.4 ng/L (<3.5-35.0)
--- NOTE | 2020-02-16 01:39 | PC.NURSE ---
Report [place] [facility] [place] Loretta. Pt is awaiting transport to floor.
--- NOTE | 2020-02-16 02:36 | US_ITS ---
EXAMINATION: ULTRASOUND-GUIDED DRAINAGE CLINICAL INFORMATION: Postop abdominal wall collection COMPARISON: Previous abdominal and pelvic CT scan from yesterday TECHNIQUE: Procedure and risks and benefits including bleeding and infection were discussed with the patient and informed consent was obtained. The abdominal wall in the interval from umbilical region is prepped and draped in the usual sterile fashion. The skin and soft tissues were anesthetized with 1% lidocaine plain. Using ultrasound guidance and a 5 Wolof rapid centesis catheter, access to the collection was obtained. 10 mL of serosanguineous fluid was aspirated. No drain was placed. Diagnostic specimen was sent for Gram stain and culture. FINDINGS: There is a complex fluid collection is seen in the infraumbilical region. This has multiple septations and loculations. This measures 6.9 x 3.6 x 4.4 cm. US/US drain farrukh retro perc IMPRESSION: Ultrasound-guided abdominal wall aspiration.
[2020-02-16] MEDS: 0.9 % Sodium Chloride Flush 3 ML SYRINGE IVFLUSH ×4 (03:01→23:29)
[2020-02-16] MEDS: Dextrose 5 % and Lactated Ring 1,000 ML 125 ML IVCONT ×3 (03:07→17:57)
[2020-02-16] MEDS: HYDROmorphone HCl 0.5 MG/0.5 ML SYRINGE IVPUSH ×7 (03:11→23:28)
[2020-02-16] MEDS: Acetaminophen 325 MG TABLET 650 MG PO ×2 (03:18→15:59)
[2020-02-16] MEDS: ondansetron HCL 4 MG/2 ML VIAL IVPUSH ×2 (03:58→15:56)
[2020-02-16] MEDS: Piperacillin Sodium/Tazobactam 3.375 GM in 0.9 % Sodium Chloride 50 ML IV ×4 (05:45→23:29)
[2020-02-16] MEDS: oxyCODONE HCl Immed Release 5 MG TABLET PO (05:49)
[2020-02-16 06:57] LABS: MANUAL DIFF FLAG NO
[2020-02-16 07:03] LABS: Basophils Absolute Auto 0.1 X10*3/uL (0.0-0.2); Basophils Percent Auto 0.4 % (0-2); Eosinophils Absolute Auto 0.2 X10*3/uL (0.0-0.4); Eosinophils Percent Auto 1.5 % (0-4); Hematocrit 45.9 % (42-52); Hemoglobin 14.2 g/dl (14.0-18.0); Imm Gran Abs Auto 0.08 X10*3/uL (0.00-0.03); Imm Gran Pct Auto 0.6 % (0.0-0.4); Lymphocytes Absolute Auto 3.3 X10*3/uL (1.2-4.9); Lymphocytes Percent Auto 22.9 % (20-40); Mean Corpuscular HGB Conc 30.9 g/dl (31.0-36.0); Mean Corpuscular Hemoglobin 27.5 pg (27.0-33.0); Monocytes Absolute Auto 1.1 X10*3/uL (0.1-1.2); Monocytes Percent Auto 7.5 % (2-11); Neutrophils Absolute Auto 9.5 X10*3/uL (2.0-8.3); Neutrophils Percent Auto 67.1 % (45-73); Platelet Count 307 X10*3/uL (160-400); Red Blood Count 5.16 X10*6/uL (4.60-5.80); Red Cell Distribution Width 14.6 % (11.0-16.0); White Blood Count 14.2 X10*3/uL (4.8-10.8)
[2020-02-16 07:14] LABS: Anion Gap 12 (12-20); Blood Urea Nitrogen 11 mg/dL (9-16); Calcium 8.2 mg/dL (8.4-10.2); Carbon Dioxide 30 mmol/L (22-29); Chloride 103 mmol/L (96-108); Creatinine Clr Calc Pharmacy 63.4; Estimated Glomerular Filt Rate 45; Glucose Random 114 mg/dL (60-115); Potassium 4.4 mmol/l (3.3-5.1); Sodium 141 mmol/L (135-145)
--- NOTE | 2020-02-16 07:47 | PM.HPGS ---
History of Present Illness History of Present Illness Chief complaint: Abdominal wall abscess Narrative: Kenan Treviño JR is a 49 year old male Presenting with complaints of pain in the right upper chest and lower abdomen, identified by the visiting nurse to have elevated blood pressure as well. He was subsequently sent to the emergency department for further evaluation. Kenan has a history of sigmoid diverticulitis with perforation and is status post sigmoid colectomy with Ammy's procedure and recently underwent closure of the colostomy. Patient reports a just was not feeling right at home with increased discomfort in the chest and abdomen. He also reports pain in the abdomen with urinating. Workup in the emergency department revealed an elevated WBC of 17. CT of the chest was negative for pulmonary embolism. CT of the abdomen revealed a fluid collection in the abdominal wall suggestive of a possible subcutaneous abscess. The possibility of a fistula could not be ruled out. Patient was admitted to the surgical service for further management. Review of Systems Constitutional: Constitutional: Denies chills, Denies fever(s), Denies headache(s) and Denies poor appetite ENT: Denies dizziness and Denies headache(s) Cardiovascular: Cardiovascular: Reports chest pain, Reports rapid heart rate, Denies palpitations and Denies slow heart rate Respiratory: Respiratory: Denies chest congestion, Denies cough, Denies pain on inspiration and Denies wheezing Gastrointestinal: Gastrointestinal: Reports abdominal pain, Denies bloating, Denies change in stool character, Denies constipation, Reports diarrhea, Reports nausea, Reports vomiting and Denies hematemesis Musculoskeletal: Musculoskeletal: Denies back pain, Denies arthralgias, Denies joint swelling and Denies numbness Integumentary/Breasts: Skin/Breast: Denies change in pigmentation, Denies erythema and Denies rash Neurologic: Denies confusion, Denies dizziness, Denies headache(s) and Denies numbness Psychiatric: Psychiatric: Denies anxiety, Denies confusion and Denies depression Endocrine: Endocrine: Denies palpitations Hematologic/Lymphatic: Hematologic/Lymphatic: Denies easy bleeding, Denies easy bruising and Denies lymphadenopathy Allergic/Immunologic: Allergic/Immunologic: Denies wheezing PMFSH Past Medical History Medical History Anxiety Constipation GERD (gastroesophageal reflux disease) History of diverticulitis Hyperlipidemia Hypertension Mitral valve disease Right ankle pain Family History Family History Mother No problems noted. Father No problems noted. Surgical History Surgical History H/O mitral valve repair Status post Ammy procedure (10/21/19) Social History Social History Household Members: Significant Other Housing: Apartment Do you presently have visiting nurse or other home services: Yes ([facility]) Alcohol intake: never Smoking Status: Never smoker Second Hand Smoke Exposure: No Use of substances other than those prescribed or required for medical reasons: Yes Substance Use Type: Marijuana Substance Use Frequency: Daily Last Used Substance: Hours (ago) Currently Displaying Signs/Symptoms of Drug Intoxication Withdrawal: No Any prior treatment program specific to substance use: No Have you been hit, kicked, punched, or otherwise hurt by someone within the past year? If so, by whom?: No Do you feel safe in your current relationship?: Yes Is there a partner from a previous relationship who is making you feel unsafe now?: No Are you made to feel afraid or neglected: No Advance Directives: No Advance Directives Information Provided: Yes Do you have thoughts of harming others: None Do you have a plan to hurt others: No Plan Recently lost weight without trying: No service: No Current occupational status: unemployed Meds Allergies Allergy/AdvReac Type Severity Reaction Status Date / Time morphine [MORPHINE] Allergy Unknown HIVES, rash Verified 02/15/20 16:27 Home Medications Medication Instructions Recorded Confirmed Type amlodipine 10 mg tablet 10 mg PO DAILY 12/28/19 02/15/20 History aspirin 81 mg tablet,delayed 81 mg PO DAILY 12/28/19 02/15/20 History release atorvastatin 20 mg tablet 20 mg PO DAILY 12/28/19 02/15/20 History baclofen 10 mg tablet 10 mg PO TID 12/28/19 02/15/20 History cyclobenzaprine 10 mg tablet 10 mg PO BEDTIME 12/28/19 02/15/20 History dicyclomine 20 mg tablet 20 mg PO TID 12/28/19 02/15/20 History docusate sodium 100 mg capsule 100 mg PO DAILY 12/28/19 02/15/20 History metoprolol tartrate 50 mg tablet 50 mg PO DAILY 12/28/19 02/15/20 History nystatin 500,000 unit tablet 500,000 unit PO QID 12/28/19 02/15/20 History omeprazole 20 mg capsule,delayed 20 mg PO DAILY 12/28/19 02/15/20 History release gabapentin 300 mg PO BEDTIME 01/07/20 02/15/20 History sertraline 25 mg PO DAILY 01/07/20 02/15/20 History Physical Exam Vital Signs: Vital Signs: Last Vital Signs Temp 97.5 F 02/16/20 07:35 Pulse 67 02/16/20 07:35 Resp 18 02/16/20 07:35 BP 157/90 H 02/16/20 07:35 Pulse Ox 98 02/16/20 07:35 Body Mass Index 38.0 Const: General: No confusion Nutritional Appearance: well nourished Orientation/consciousness: No confusion Eyes: Sclerae: sclerae normal EOM: EOMs intact bilaterally Neck: Neck: Yes normal visual inspection Resp: Effort & Inspection: normal respiratory effort, no cough and no respiratory distress Cardio: Jugular venous distension: no JVD Rate: regular rate Rhythm: regular rhythm GI: Other: Lower midline incision is clean, dry, and intact, with no erythema or fluctuance palpable. Colostomy incision in left lower quadrant is also clean and dry with no apparent discharge or erythema. Inspection: Yes normal to inspection Palpation (GI): Soft to palpation, nontender, no guarding and not rigid Percussion: Yes normal to percussion Auscultation: normal bowel sounds Abdomen image: 1. Lower midline incision, clean and intact 2. ostomy incision with silver alginate applied medially Skin: General skin exam: dry skin Rashes: no rashes Neuro: General: No confusion Extrem: General: Yes no clubbing, cyanosis or edema Right upper extremity: normal capillary refill Left upper extremity: full ROM Results Results Labs: Short CBC 02/15/20 02/16/20 Range/Units 19:26 05:40 WBC 17.7 H 14.2 H (4.8-10.8) X10*3/uL Hgb 14.8 14.2 (14.0-18.0) g/dl Hct 46.3 45.9 (42-52) % Plt Count 341 307 (160-400) X10*3/uL BMP 02/15/20 02/16/20 19:26 05:40 Sodium 138 141 Potassium 4.1 4.4 Chloride 103 103 Carbon Dioxide 25 30 H BUN 11 11 Creatinine 1.45 H 1.65 H Calcium 8.7 8.2 L Liver Function 02/15/20 Range/Units 19:26 Total Bilirubin 0.4 (0.0-1.0) mg/dL Direct Bilirubin < 0.2 (0.0-0.5) mg/dL AST 16 (5-37) U/L ALT 28 (0-40) U/L Alkaline Phosphatase 37 L (39-117) U/L Albumin 4.1 (3.5-5.0) g/dL Urine 02/15/20 Range/Units 19:26 Urine Color YELLOW Urine Appearance CLEAR Urine pH 5.5 (5.0-8.0) Ur Specific [place] 1.025 (1.005-1.025) Urine Protein NEG (NEG-TRACE) MG/DL Urine Glucose (UA) NEG (NEG) MG/DL Assessment and Plan (1) Abdominal wall abscess: Status: Acute Edbela Treviño returns following closure of colostomy with complaints of right-sided chest discomfort and lower abdominal pain. Evaluation in the emergency department revealed an elevated WBC and CT of the abdomen and pelvis reveals a fluid collection in the abdominal wall suggestive of an abdominal wall abscess. I recommended admission with IV antibiotics and Interventional Radiology drainage of the fluid collection either with ultrasound or CT. The patient understands and agrees with the plan. (2) Hypertension: Status: Acute Patient has history of hypertension but was noted to be increased at home and in the emergency department. I suggested hospitalist consultation for further evaluation and possible adjustment of his medications. Procedures Abscess I/D Date of Service: 02/16/20
[2020-02-16] MEDS: Omeprazole 20 MG CAPSULE.DR PO (07:48)
[2020-02-16] MEDS: Baclofen 10 MG TABLET PO ×3 (07:49→21:18)
[2020-02-16] MEDS: Dicyclomine HCl 10 MG CAPSULE 20 MG PO ×3 (07:49→21:18)
[2020-02-16] MEDS: amLODIPine Besylate 10 MG TABLET PO (07:50)
[2020-02-16] MEDS: Metoprolol Tartrate 50 MG TABLET PO ×3 (07:50→21:19)
[2020-02-16] MEDS: Sertraline HCL 50 MG TABLET PO (08:48)
[2020-02-16] MEDS: lisinopriL 10 MG TABLET PO (08:48)
--- NOTE | 2020-02-16 09:35 | MHC.CM.PN ---
pt is active with [facility] he is asking to speak with a finmancial counselor referral will be made to [facility]
[2020-02-16] MEDS: Lidocaine HCl 1 % MPF 5 ML VIAL SUBCUT (10:34)
[2020-02-16 10:58] LABS: INTERNATIONAL NORM RATIO 1.2 (0.9-1.1); Prothrombin Time 14.1 SEC (10.8-13.0)
[2020-02-16 11:00] LABS: Partial Thromboplastin Time 38.6 SEC (24.1-38.0)
--- NOTE | 2020-02-16 12:18 | HO.RADPN ---
RADIOLOGY Narrative Narrative: ultrasound guided abdominal wall collection aspiration using 5 Fr catheter. 10 mL serosanguinous fluid removed. Specimen sent.
--- NOTE | 2020-02-16 14:01 | PM.IMCN ---
History of Present Illness Data of Consult Service Date: 02/16/20 Requesting physician: Ricco Echevarria Primary Care Provider: Unknown Physician HPI Reason for consult: Medical Management 49 year old man with multiple medical problems including HTN, Anxiety and chronic pain was admitted by general surgery. He presented with chest pain radiating to the lower abdomen as well as urinary discomfort. He was seen at home by his visiting nurse who noted high blood pressure reading. He has a history of sigmoid diverticulitis with perforation. He is status post sigmoid colectomy with Ammy's procedure and recently underwent closure of the colostomy. In the ED, He was noted to have an elevated WBC of 17. CTA was negative for PE however, abdominal CT showed fluid collection in the abdominal wall suggestive of a possible subcutaneous abscess. He was started on IV antibiotics and admitted. Review of Systems Review of Systems: Denies any recent fever chills or decrease in appetite respiratory denies any shortness of breath coverage production cardiovascular is adjustment of any PND or edema gastrointestinal See HPI genitourinary See HPI musculoskeletal denies any joint pain or swelling neuropsych denies any weakness or seizures all other systems reviewed are negative Constitutional: Constitutional: Denies headache(s) ENT: Denies dizziness and Denies headache(s) Musculoskeletal: Musculoskeletal: Denies numbness Neurologic: Denies confusion, Denies dizziness, Denies headache(s) and Denies numbness Psychiatric: Psychiatric: Denies confusion [facility] Medical History Anxiety Constipation GERD (gastroesophageal reflux disease) History of diverticulitis Hyperlipidemia Hypertension Mitral valve disease Right ankle pain Family History Mother No problems noted. Father No problems noted. Surgical History H/O mitral valve repair Status post Ammy procedure (10/21/19) Social History Household Members: Significant Other Housing: Apartment Do you presently have visiting nurse or other home services: Yes ([facility]) Alcohol intake: never Smoking Status: Never smoker Second Hand Smoke Exposure: No Use of substances other than those prescribed or required for medical reasons: Yes Substance Use Type: Marijuana Substance Use Frequency: Daily Last Used Substance: Hours (ago) Currently Displaying Signs/Symptoms of Drug Intoxication Withdrawal: No Any prior treatment program specific to substance use: No Have you been hit, kicked, punched, or otherwise hurt by someone within the past year? If so, by whom?: No Do you feel safe in your current relationship?: Yes Is there a partner from a previous relationship who is making you feel unsafe now?: No Are you made to feel afraid or neglected: No Advance Directives: No Advance Directives Information Provided: Yes Do you have thoughts of harming others: None Do you have a plan to hurt others: No Plan Recently lost weight without trying: No service: No Current occupational status: unemployed Meds Allergies Allergy/AdvReac Type Severity Reaction Status Date / Time morphine [MORPHINE] Allergy Unknown HIVES, rash Verified 02/15/20 16:27 Home Medications Medication Instructions Recorded Confirmed Type amlodipine 10 mg tablet 10 mg PO DAILY 12/28/19 02/15/20 History aspirin 81 mg tablet,delayed 81 mg PO DAILY 12/28/19 02/15/20 History release atorvastatin 20 mg tablet 20 mg PO DAILY 12/28/19 02/15/20 History baclofen 10 mg tablet 10 mg PO TID 12/28/19 02/15/20 History cyclobenzaprine 10 mg tablet 10 mg PO BEDTIME 12/28/19 02/15/20 History dicyclomine 20 mg tablet 20 mg PO TID 12/28/19 02/15/20 History docusate sodium 100 mg capsule 100 mg PO DAILY 12/28/19 02/15/20 History metoprolol tartrate 50 mg tablet 50 mg PO TID 12/28/19 02/16/20 History omeprazole 20 mg capsule,delayed 20 mg PO DAILY 12/28/19 02/15/20 History release gabapentin 300 mg PO BEDTIME 01/07/20 02/15/20 History benazepril 10 mg PO DAILY 02/16/20 02/16/20 History hydromorphone 2 mg PO Q6H PRN 02/16/20 02/16/20 History sertraline 50 mg PO DAILY 02/16/20 02/16/20 History Physical Exam Vital Signs and Narrative: Vital Signs: Last Vital Signs Temp 97.0 F 02/16/20 11:01 Pulse 56 02/16/20 11:01 Resp 20 02/16/20 11:02 BP 128/76 02/16/20 11:01 Pulse Ox 97 02/16/20 11:01 Body Mass Index 38.0 Appearing in no acute distress head is normocephalic atraumatic eyes pupils are PERRLA sclera is anicteric mouth throat mucous membranes are intact and moist neck is supple no lymphadenopathy, no JVD noted lung sounds are clear to auscultation heart regular rate rhythm, clear S1, S2 positive bowel sounds, abdomen is soft, Dressing to lower abdomen dry and intact. Old suture scars from colostomy and reversal. neuro patient is alert x3, no focal deficits Const: General: No confusion Orientation/consciousness: No confusion Neuro: General: No confusion Results Labs CBC and Chem 7: 02/16/20 05:40 02/16/20 05:40 Labs: Laboratory Results - last 24 hr 02/15/20 02/15/20 02/15/20 19:26 19:26 19:26 MCV 86.5 MCH 27.7 MCHC 32.0 RDW 14.6 Plt Count 341 MPV 11.7 Immature Gran % (Auto) 0.5 H Neut % (Auto) 71.4 Lymph % (Auto) 20.5 [place] % (Auto) 6.7 Eos % (Auto) 0.6 Baso % (Auto) 0.3 Lymph # (Auto) 3.6 [place] # (Auto) 1.2 Eos # (Auto) 0.1 Baso # (Auto) 0.1 Abs Immat Gran (auto) 0.08 H Absolute Neuts (auto) 12.6 H Absolute Nucleated RBC 0.000 Nucleated RBC % (auto) 0.0 PT INR APTT D-Dimer Anion Gap 14 Estim Creat Clear Calc 72.2 Estimated GFR 52 Random Glucose 82 Lactic Acid Calcium 8.7 Total Bilirubin 0.4 Direct Bilirubin < 0.2 AST 16 ALT 28 Alkaline Phosphatase 37 L Troponin I High Sens 4.2 Total Protein 7.8 Albumin 4.1 Urine Color Urine Appearance Urine pH Ur Specific [place] Urine Protein Urine Glucose (UA) Urine Ketones Urine Blood Urine Nitrite Ur Leukocyte Esterase Urine RBC Urine WBC Ur Squamous Epith Cells Urine Bacteria Coronavirus (PCR) Influenza Type A (PCR) Influenza Type B (PCR) RSV RNA Qual (PCR) 02/15/20 02/15/20 02/15/20 19:26 19:26 19:26 MCV MCH MCHC RDW Plt Count MPV Immature Gran % (Auto) Neut % (Auto) Lymph % (Auto) [place] % (Auto) Eos % (Auto) Baso % (Auto) Lymph # (Auto) [place] # (Auto) Eos # (Auto) Baso # (Auto) Abs Immat Gran (auto) Absolute Neuts (auto) Absolute Nucleated RBC Nucleated RBC % (auto) PT INR APTT D-Dimer 640 Anion Gap Estim Creat Clear Calc Estimated GFR Random Glucose Lactic Acid Calcium Total Bilirubin Direct Bilirubin AST ALT Alkaline Phosphatase Troponin I High Sens Total Protein Albumin Urine Color YELLOW Urine Appearance CLEAR Urine pH 5.5 Ur Specific [place] 1.025 Urine Protein NEG Urine Glucose (UA) NEG Urine Ketones NEG Urine Blood 1+ H Urine Nitrite NEG Ur Leukocyte Esterase NEG Urine RBC 0-2 Urine WBC 0 Ur Squamous Epith Cells NONE Urine Bacteria NONE Coronavirus (PCR) NEGATIVE Influenza Type A (PCR) NEGATIVE Influenza Type B (PCR) NEGATIVE RSV RNA Qual (PCR) NEGATIVE 02/15/20 02/15/20 02/16/20 21:05 23:43 05:40 MCV 89.0 MCH 27.5 MCHC 30.9 L RDW 14.6 Plt Count 307 MPV 12.0 Immature Gran % (Auto) 0.6 H Neut % (Auto) 67.1 Lymph % (Auto) 22.9 [place] % (Auto) 7.5 Eos % (Auto) 1.5 Baso % (Auto) 0.4 Lymph # (Auto) 3.3 [place] # (Auto) 1.1 Eos # (Auto) 0.2 Baso # (Auto) 0.1 Abs Immat Gran (auto) 0.08 H Absolute Neuts (auto) 9.5 H Absolute Nucleated RBC 0.000 Nucleated RBC % (auto) 0.0 PT INR APTT D-Dimer Anion Gap Estim Creat Clear Calc Estimated GFR Random Glucose Lactic Acid 0.9 Calcium Total Bilirubin Direct Bilirubin AST ALT Alkaline Phosphatase Troponin I High Sens 4.4 Total Protein Albumin Urine Color Urine Appearance Urine pH Ur Specific [place] Urine Protein Urine Glucose (UA) Urine Ketones Urine Blood Urine Nitrite Ur Leukocyte Esterase Urine RBC Urine WBC Ur Squamous Epith Cells Urine Bacteria Coronavirus (PCR) Influenza Type A (PCR) Influenza Type B (PCR) RSV RNA Qual (PCR) 02/16/20 02/16/20 05:40 09:07 MCV MCH MCHC RDW Plt Count MPV Immature Gran % (Auto) Neut % (Auto) Lymph % (Auto) [place] % (Auto) Eos % (Auto) Baso % (Auto) Lymph # (Auto) [place] # (Auto) Eos # (Auto) Baso # (Auto) Abs Immat Gran (auto) Absolute Neuts (auto) Absolute Nucleated RBC Nucleated RBC % (auto) PT 14.1 H INR 1.2 H APTT 38.6 H D-Dimer Anion Gap 12 Estim Creat Clear Calc 63.4 Estimated GFR 45 Random Glucose 114 D Lactic Acid Calcium 8.2 L Total Bilirubin Direct Bilirubin AST ALT Alkaline Phosphatase Troponin I High Sens Total Protein Albumin Urine Color Urine Appearance Urine pH Ur Specific [place] Urine Protein Urine Glucose (UA) Urine Ketones Urine Blood Urine Nitrite Ur Leukocyte Esterase Urine RBC Urine WBC Ur Squamous Epith Cells Urine Bacteria Coronavirus (PCR) Influenza Type A (PCR) Influenza Type B (PCR) RSV RNA Qual (PCR) Imaging Radiologist's Impressions: Impressions Chest X-Ray 02/15/20 18:26 IMPRESSION: No acute abnormality of chest. Abdomen/Pelvis CT 02/15/20 19:02 IMPRESSION: 1. There is a thick-walled fluid collection in the abdominal wall in the midline in the immediate infraumbilical region. Findings are suspicious for an abscess. Inflammatory changes extend towards the colonic anastomosis. A fistula cannot be excluded. This collection would be easily amenable to ultrasound or CT-guided drainage. 2. Other incidental findings as described above. Chest CTA 02/15/20 19:02 IMPRESSION: No evidence of pulmonary emboli VTE: negative Fluid Drainage 02/16/20 02:36 IMPRESSION: Ultrasound-guided abdominal wall aspiration. Assessment and Plan (1) Abdominal wall abscess: Status: Acute 49 year old man admitted by general surgery and is status post fluid collection drainage. Abdominal abscess. I&D completed. Continue IV antibiotics. Follow cultures. Hypertension. Stable. Continue Amlodipine and benazapril. Metoprolol. HLD. Continue statin. Neuropathy/chronic pain. Continue gabapentin, cyclobenzaprine and dicyclomine GERD. Continue PPI. Depression/anxiety. Continue sertraline. DVT prophylaxis as per surgical team. Discussed with Dr. Kolb. Full code
[2020-02-16] MEDS: Gabapentin 300 MG CAPSULE PO (21:18)
[2020-02-16] MEDS: Zolpidem Tartrate 5 MG TABLET PO (21:19)
[2020-02-16] MEDS: Cyclobenzaprine HCl 10 MG TABLET PO (21:19)
[2020-02-16] MEDS: Atorvastatin Calcium 20 MG TABLET PO (21:19)
[2020-02-17] VITALS (11 sets, daily range): BP systolic 124–146; BP diastolic 77–86; PULSE 59–86; RESP 16–20; TEMP 36.4–37; O2SAT 96–99
[2020-02-17] MEDS: Dextrose 5 % and Lactated Ring 1,000 ML 125 ML IVCONT ×3 (03:59→20:55)
[2020-02-17] MEDS: HYDROmorphone HCl 0.5 MG/0.5 ML SYRINGE IVPUSH ×5 (05:32→20:41)
[2020-02-17] MEDS: Omeprazole 20 MG CAPSULE.DR PO (05:33)
[2020-02-17] MEDS: Piperacillin Sodium/Tazobactam 3.375 GM in 0.9 % Sodium Chloride 50 ML IV ×3 (05:33→18:51)
[2020-02-17 06:35] LABS: MANUAL DIFF FLAG NO
[2020-02-17 06:43] LABS: Basophils Absolute Auto 0.1 X10*3/uL (0.0-0.2); Basophils Percent Auto 0.3 % (0-2); Eosinophils Absolute Auto 0.2 X10*3/uL (0.0-0.4); Eosinophils Percent Auto 1.1 % (0-4); Hemoglobin 13.4 g/dl (14.0-18.0); Imm Gran Pct Auto 0.5 % (0.0-0.4); Lymphocytes Absolute Auto 2.7 X10*3/uL (1.2-4.9); Lymphocytes Percent Auto 14.7 % (20-40); Mean Corpuscular HGB Conc 31.2 g/dl (31.0-36.0); Mean Corpuscular Hemoglobin 27.6 pg (27.0-33.0); Mean Corpuscular Volume 88.7 fL (80-98); Mean Platelet Volume 12.3 fL (9.4-12.4); Monocytes Absolute Auto 1.1 X10*3/uL (0.1-1.2); Monocytes Percent Auto 5.9 % (2-11); Neutrophils Absolute Auto 14.2 X10*3/uL (2.0-8.3); Neutrophils Percent Auto 77.5 % (45-73); Platelet Count 326 X10*3/uL (160-400); Red Blood Count 4.85 X10*6/uL (4.60-5.80); Red Cell Distribution Width 14.6 % (11.0-16.0); White Blood Count 18.3 X10*3/uL (4.8-10.8)
--- NOTE | 2020-02-17 08:11 | PM.PNGS ---
Physical Exam Vital Signs: Vital Signs: Last Vital Signs Temp 97.5 F 02/16/20 07:35 Pulse 67 02/16/20 07:35 Resp 18 02/16/20 07:35 BP 157/90 H 02/16/20 07:35 Pulse Ox 98 02/16/20 07:35 Body Mass Index 38.0 Const: Other: Last Vital Signs Temp 97.5 F 02/16/20 07:35 Pulse 67 02/16/20 07:35 Resp 18 02/16/20 07:35 BP 157/90 H 02/16/20 07:35 Pulse Ox 98 02/16/20 07:35 Body Mass Index 38.0 General: No confusion Nutritional Appearance: well nourished Orientation/consciousness: No confusion Resp: Effort & Inspection: normal respiratory effort, no cough and no respiratory distress GI: Other: Lower midline incision is clean, dry, and intact, with no erythema or fluctuance palpable. Colostomy incision in left lower quadrant is also clean and dry with no apparent discharge or erythema. Inspection: Yes normal to inspection Palpation (GI): Soft to palpation, nontender, no guarding and not rigid Percussion: Yes normal to percussion Auscultation: normal bowel sounds Skin: General skin exam: dry skin Rashes: no rashes Neuro: General: No confusion Progress Note: A&P Assessment and plan (1) Abdominal wall abscess: Status: Acute Assessment and Plan: Patient is status post ultrasound-guided aspiration of approximately 10 cc of serosanguineous fluid from the lower midline incision. Cultures are pending. WBC is increased 18,000 and blood cultures are positive in 1 bottle out of 2 for gram-positive cocci in clusters. Patient is previously on Zosyn; will add Vanco and repeat blood cultures today. Await fluid cultures as well. Fall Risk Details Current Medications: Current Medications Generic Name Dose Route Start Last Admin Trade Name Freq PRN Reason Stop Dose Admin Acetaminophen 650 mg 02/16/20 02:36 02/16/20 15:59 Acetaminophen 325 Mg Tablet PO 650 mg Q6H PRN Administration Pain, Mild (Pain Scale 1-3) Amlodipine Besylate 10 mg 02/16/20 09:00 02/16/20 07:50 Amlodipine Besylate 10 Mg Tablet PO 10 mg DAILY SHARIF Administration Protocol Atorvastatin Calcium 20 mg 02/16/20 21:00 02/16/20 21:19 Atorvastatin Calcium 20 Mg Tablet PO 20 mg BEDTIME SHARIF Administration Baclofen 10 mg 02/16/20 09:00 02/16/20 21:18 Baclofen 10 Mg Tablet PO 10 mg TID SHARIF Administration Cyclobenzaprine HCl 10 mg 02/16/20 21:00 02/16/20 21:19 Cyclobenzaprine Hcl 10 Mg Tablet PO 10 mg BEDTIME SHARIF Administration Dicyclomine HCl 20 mg 02/16/20 09:00 02/16/20 21:18 Dicyclomine Hcl 10 Mg Capsule PO 20 mg TID SHARIF Administration Gabapentin 300 mg 02/16/20 21:00 02/16/20 21:18 Gabapentin 300 Mg Capsule PO 300 mg BEDTIME SHARIF Administration Hydromorphone HCl 0.5 mg 02/16/20 02:36 02/17/20 05:32 Hydromorphone Hcl 0.5 Mg/0.5 Ml Syringe IVPUSH 0.5 mg Q2H PRN Administration Pain, Severe (Pain Scale 7-10) Dextrose/Lactated Ringer's 1,000 mls @ 125 mls/hr 02/16/20 02:36 02/17/20 03:59 D5lr IVCONT 125 mls/hr .Q8H SHARIF Administration Piperacillin Sod/Tazobactam 50 mls @ 100 mls/hr 02/16/20 12:00 02/17/20 06:03 Sod 3.375 gm/ Sodium Chloride IV Infused Q6H SHARIF Infusion Vancomycin HCl 1,500 mg/ 280 mls @ 200 mls/hr 02/17/20 09:00 Sodium Chloride IV Q24H SHARIF Lisinopril 10 mg 02/16/20 09:00 02/16/20 08:48 Lisinopril 10 Mg Tablet PO 10 mg DAILY SHARIF Administration Metoprolol Tartrate 50 mg 02/16/20 09:00 02/16/20 21:19 Metoprolol Tartrate 50 Mg Tablet PO 50 mg TID [facility] Administration Protocol Omeprazole 20 mg 02/16/20 08:00 02/17/20 05:33 Omeprazole 20 Mg Capsule.Dr PO 20 mg DAILY@0630 SHARIF Administration Ondansetron HCl 4 mg 02/16/20 02:36 02/16/20 15:56 Ondansetron Hcl 4 Mg/2 Ml Vial IVPUSH 4 mg Q8H PRN Administration Nausea and Vomiting Oxycodone HCl 5 mg 02/16/20 02:36 02/16/20 05:49 Oxycodone Hcl Immed Release 5 Mg Tablet PO 5 mg Q6H PRN Administration Pain, Moderate (Pain Scale 4-6 Pharmacy Consult 1 each 02/16/20 02:36 Consult Rx Perform Med Rec MISCELLANE ONCE PRN Consult order Pharmacy Consult 1 each 02/17/20 07:34 Consult Rx Vancomycin Dosing MISCELLANE DAILY PRN Consult order Sertraline HCl 50 mg 02/16/20 09:00 02/16/20 08:48 Sertraline Hcl 50 Mg Tablet PO 50 mg DAILY SHARIF Administration Sodium Chloride 3 ml 02/16/20 02:36 02/16/20 23:29 0.9 % Sodium Chloride Flush 3 Ml Syringe IVFLUSH 3 ml QSHIFT SHARIF Administration Zolpidem Tartrate 5 mg 02/16/20 02:36 02/16/20 21:19 Zolpidem Tartrate 5 Mg Tablet PO 5 mg BEDTIME PRN Administration Insomnia Time Spent With Patient Time: Total time spent is greater than 50% in coordination of care (as documented) at patient's floor/unit and/or counseling patient: Results Laboratory Findings Labs: Laboratory Results - last 24 hr 02/16/20 02/17/20 09:07 05:25 WBC 18.3 H RBC 4.85 Hgb 13.4 L Hct 43.0 MCV 88.7 MCH 27.6 MCHC 31.2 RDW 14.6 Plt Count 326 MPV 12.3 Immature Gran % (Auto) 0.5 H Neut % (Auto) 77.5 H Lymph % (Auto) 14.7 L [place] % (Auto) 5.9 Eos % (Auto) 1.1 Baso % (Auto) 0.3 Lymph # (Auto) 2.7 [place] # (Auto) 1.1 Eos # (Auto) 0.2 Baso # (Auto) 0.1 Abs Immat Gran (auto) 0.10 H Absolute Neuts (auto) 14.2 H Absolute Nucleated RBC 0.000 Nucleated RBC % (auto) 0.0 PT 14.1 H INR 1.2 H APTT 38.6 H
--- NOTE | 2020-02-17 08:29 | PM.PNGS ---
Subjective Subjective Interval history: Sore this morning at drainage site and right side. B/l chest pain persistent but improved. Reports he vomitted twice yesterday but feels better this morning. <Noelle Morris PA-C Last Filed: 02/17/20 08:42> Physical Exam Vital Signs: Vital Signs: Last Vital Signs Temp 97.5 F 02/17/20 07:47 Pulse 67 02/17/20 07:47 Resp 20 02/17/20 07:47 BP 131/85 02/17/20 07:47 Pulse Ox 99 02/17/20 07:47 Body Mass Index 38.0 <Noelle Morris PA-C Last Filed: 02/17/20 08:42> Const: General: comfortable, no acute distress and alert <Noelle Morris PA-C Last Filed: 02/17/20 08:42> Orientation/consciousness: patient oriented x3 <LINDA KangGabyNenita Last Filed: 02/17/20 08:42> Eyes: Sclerae: sclerae normal <SADAF KangNenita Last Filed: 02/17/20 08:42> Chest: Chest palpation & inspection: normal inspection of the chest and tenderness (diffuse, bilatera) <Noelle Morris PA-C Last Filed: 02/17/20 08:42> Resp: Effort & Inspection: normal respiratory effort <LINDA KangGaby Filed: 02/17/20 08:42> Auscultation: clear to auscultation bilaterally <Noelle Morris PA-C Last Filed: 02/17/20 08:42> Cardio: Rate: regular rate <LINDA KangOdalys Last Filed: 02/17/20 08:42> Rhythm: regular rhythm <Noelle Morris PA-C Filed: 02/17/20 08:42> GI: Other: no erythema of midline incision or old colostomy site incision <Noelle Morris PA-C Gaby Last Filed: 02/17/20 08:42> Inspection: No distended and Yes other (no drainage noted from midline incision or old colostomy site incision) <Noelle Morris PA-C - Last Filed: 02/17/20 08:42> Palpation (GI): Soft to palpation, Tenderness to palpation present (GI) (drainage site, midline incision) and No Rebound tenderness present <Noelle Morris PA-C - Last Filed: 02/17/20 08:42> Skin: Other: normal color, warm and dry <Noelle Morris PA-C - Last Filed: 02/17/20 08:42> Neuro: General: patient oriented x3 <Noelle Morris PA-C - Last Filed: 02/17/20 08:42> Extrem: General: Yes no clubbing, cyanosis or edema <Noelle Morris PA-C - Last Filed: 02/17/20 08:42> Progress Note: A&P Assessment and plan (1) Abdominal wall abscess: Status: Acute <Noelle Morris PA-C - Last Filed: 02/17/20 08:42> Assessment and Plan: S/p ultrasound guided drainage yesterday. 10 mL serosanguinous fluid removed, cultures sent. VSS. Abd soft, mild tenderness surrounding drainage site. WBC increased this am- ? reactive. Will repeat tomorrow. Continue empiric IV abx today, f/u abdominal wall fluid cultures. Diet as tolerated. If WBC remains elevated tomorrow may need repeat imaging. Will add motrin for ?costochondritis- has diffuse persistent chest pain but is tender at sternum. No evidence of PNA, pneumothorax, PE- CE normal, EKG normal; respiratory panel normal. Denies SOB. Hospitalist following. <Noelle Morris PA-C - Last Filed: 02/17/20 08:42> Agree with the above assessment and plan. Patient is status post ultrasound-guided aspiration of approximately 10 cc of serosanguineous fluid from the lower midline incision. Cultures are pending. WBC is increased 18,000 and blood cultures are positive in 1 bottle out of 2 for gram-positive cocci in clusters. Patient is previously on Zosyn; will add Vanco and repeat blood cultures today. Await fluid cultures as well. <Ricco Echevarria MD - Last Filed: 02/17/20 09:56> (2) S/P colostomy takedown: Status: Acute <Noelle Morris PA-C - Last Filed: 02/17/20 08:42> (3) Anxiety: Status: Acute <Noelle Morris PA-C - Last Filed: 02/17/20 08:42> (4) Hypertension: Status: Acute <Noelle Morris PA-C - Last Filed: 02/17/20 08:42> Fall Risk Details Current Medications: Current Medications Generic Name Dose Route Start Last Admin Trade Name Freq PRN Reason Stop Dose Admin Acetaminophen 650 mg 02/16/20 02:36 02/16/20 15:59 Acetaminophen 325 Mg Tablet PO 650 mg Q6H PRN Administration Pain, Mild (Pain Scale 1-3) Amlodipine Besylate 10 mg 02/16/20 09:00 02/16/20 07:50 Amlodipine Besylate 10 Mg Tablet PO 10 mg DAILY SHARIF Administration Protocol Atorvastatin Calcium 20 mg 02/16/20 21:00 02/16/20 21:19 Atorvastatin Calcium 20 Mg Tablet PO 20 mg BEDTIME SHARIF Administration Baclofen 10 mg 02/16/20 09:00 02/16/20 21:18 Baclofen 10 Mg Tablet PO 10 mg TID SHARIF Administration Cyclobenzaprine HCl 10 mg 02/16/20 21:00 02/16/20 21:19 Cyclobenzaprine Hcl 10 Mg Tablet PO 10 mg BEDTIME SHARIF Administration Dicyclomine HCl 20 mg 02/16/20 09:00 02/16/20 21:18 Dicyclomine Hcl 10 Mg Capsule PO 20 mg TID SHARIF Administration Gabapentin 300 mg 02/16/20 21:00 02/16/20 21:18 Gabapentin 300 Mg Capsule PO 300 mg BEDTIME SHARIF Administration Hydromorphone HCl 0.5 mg 02/16/20 02:36 02/17/20 05:32 Hydromorphone Hcl 0.5 Mg/0.5 Ml Syringe IVPUSH 0.5 mg Q2H PRN Administration Pain, Severe (Pain Scale 7-10) Dextrose/Lactated Ringer's 1,000 mls @ 125 mls/hr 02/16/20 02:36 02/17/20 03:59 D5lr IVCONT 125 mls/hr .Q8H SHARIF Administration Piperacillin Sod/Tazobactam 50 mls @ 100 mls/hr 02/16/20 12:00 02/17/20 06:03 Sod 3.375 gm/ Sodium Chloride IV Infused Q6H SHARIF Infusion Vancomycin HCl 1,500 mg/ 280 mls @ 200 mls/hr 02/17/20 09:00 Sodium Chloride IV Q24H SHARIF Lisinopril 10 mg 02/16/20 09:00 02/16/20 08:48 Lisinopril 10 Mg Tablet PO 10 mg DAILY SHARIF Administration Metoprolol Tartrate 50 mg 02/16/20 09:00 02/16/20 21:19 Metoprolol Tartrate 50 Mg Tablet PO 50 mg TID SHARIF Administration Protocol Omeprazole 20 mg 02/16/20 08:00 02/17/20 05:33 Omeprazole 20 Mg Capsule.Dr PO 20 mg DAILY@0630 SHARIF Administration Ondansetron HCl 4 mg 02/16/20 02:36 02/16/20 15:56 Ondansetron Hcl 4 Mg/2 Ml Vial IVPUSH 4 mg Q8H PRN Administration Nausea and Vomiting Oxycodone HCl 5 mg 02/16/20 02:36 02/16/20 05:49 Oxycodone Hcl Immed Release 5 Mg Tablet PO 5 mg Q6H PRN Administration Pain, Moderate (Pain Scale 4-6 Pharmacy Consult 1 each 02/16/20 02:36 Consult Rx Perform Med Rec MISCELLANE ONCE PRN Consult order Pharmacy Consult 1 each 02/17/20 07:34 Consult Rx Vancomycin Dosing MISCELLANE DAILY PRN Consult order Sertraline HCl 50 mg 02/16/20 09:00 02/16/20 08:48 Sertraline Hcl 50 Mg Tablet PO 50 mg DAILY SHARIF Administration Sodium Chloride 3 ml 02/16/20 02:36 02/16/20 23:29 0.9 % Sodium Chloride Flush 3 Ml Syringe IVFLUSH 3 ml QSHIFT SHARIF Administration Zolpidem Tartrate 5 mg 02/16/20 02:36 02/16/20 21:19 Zolpidem Tartrate 5 Mg Tablet PO 5 mg BEDTIME PRN Administration Insomnia <Noelle Morris PA-C - Last Filed: 02/17/20 08:42> Time Spent With Patient Time: Total time spent is greater than 50% in coordination of care (as documented) at patient's floor/unit and/or counseling patient: <Noelle Morris PA-C - Last Filed: 02/17/20 08:42> Time with patient: 15 - 24 minutes <Noelle Morris PA-C - Last Filed: 02/17/20 08:42> No Severe Sepsis: No Severe Sepsis <Noelle Morris PA-C - Last Filed: 02/17/20 08:42> Procedures Abscess I/D Date of Service: 02/17/20 <Noelle Morris PA-C - Last Filed: 02/17/20 08:42>
[2020-02-17] MEDS: Metoprolol Tartrate 50 MG TABLET PO ×3 (10:36→20:43)
[2020-02-17] MEDS: lisinopriL 10 MG TABLET PO (10:39)
[2020-02-17] MEDS: Dicyclomine HCl 10 MG CAPSULE 20 MG PO ×3 (10:39→20:44)
[2020-02-17] MEDS: Ibuprofen 600 MG TABLET PO ×4 (10:39→20:46)
[2020-02-17] MEDS: amLODIPine Besylate 10 MG TABLET PO (10:40)
[2020-02-17] MEDS: 0.9 % Sodium Chloride Flush 3 ML SYRINGE IVFLUSH (10:40)
[2020-02-17] MEDS: Sertraline HCL 50 MG TABLET PO (10:40)
[2020-02-17] MEDS: Baclofen 10 MG TABLET PO ×3 (10:40→20:44)
[2020-02-17 10:52] LABS: Anion Gap 10 (12-20); Blood Urea Nitrogen 13 mg/dL (9-16); Calcium 8.4 mg/dL (8.4-10.2); Carbon Dioxide 32 mmol/L (22-29); Chloride 98 mmol/L (96-108); Creatinine Clr Calc Pharmacy 61.9; Estimated Glomerular Filt Rate 44; Glucose Random 84 mg/dL (60-115); Potassium 4.1 mmol/l (3.3-5.1); Sodium 136 mmol/L (135-145)
--- NOTE | 2020-02-17 13:15 | HO.PM.IMPN ---
Subjective Subjective Date of Service: 02/17/20 Interval History: Patient seen and examined at bedside patient reporting abdominal pain Constitutional Constitutional: Reports weakness Cardiovascular Cardiovascular: Denies dyspnea Respiratory Respiratory: Denies dyspnea Gastrointestinal Gastrointestinal: Reports abdominal pain and Denies vomiting Neurologic Neurologic: Denies confusion and Reports weakness Psychiatric Psychiatric: Denies confusion Physical Exam Vital Signs: Vital Signs: Last Vital Signs Temp 97.9 F 02/17/20 11:25 Pulse 71 02/17/20 11:25 Resp 20 02/17/20 11:25 BP 137/82 02/17/20 11:25 Pulse Ox 98 02/17/20 11:25 Body Mass Index 38.0 Appearing in no acute distress head is normocephalic atraumatic eyes pupils are PERRLA sclera is anicteric mouth throat mucous membranes are intact and moist neck is supple no lymphadenopathy, no JVD noted lung sounds are clear to auscultation heart regular rate rhythm, clear S1, S2 positive bowel sounds, abdomen is soft, Dressing to lower abdomen dry and intact. Old suture scars from colostomy and reversal. neuro patient is alert x3, no focal deficits Const: Other: Last Vital Signs Temp 97.9 F 02/17/20 11:25 Pulse 71 02/17/20 11:25 Resp 20 02/17/20 11:25 BP 137/82 02/17/20 11:25 Pulse Ox 98 02/17/20 11:25 Body Mass Index 38.0 General: No confusion Orientation/consciousness: No confusion Cardio: Other: Last Vital Signs Temp 97.9 F 02/17/20 11:25 Pulse 71 02/17/20 11:25 Resp 20 02/17/20 11:25 BP 137/82 02/17/20 11:25 Pulse Ox 98 02/17/20 11:25 Body Mass Index 38.0 Neuro: General: No confusion Objective Data Current Medications Generic Name Dose Route Start Last Admin Trade Name Freq PRN Reason Stop Dose Admin Acetaminophen 650 mg 02/16/20 02:36 02/16/20 15:59 Acetaminophen 325 Mg Tablet PO 650 mg Q6H PRN Administration Pain, Mild (Pain Scale 1-3) Amlodipine Besylate 10 mg 02/16/20 09:00 02/17/20 10:40 Amlodipine Besylate 10 Mg Tablet PO 10 mg DAILY SHARIF Administration Protocol Atorvastatin Calcium 20 mg 02/16/20 21:00 02/16/20 21:19 Atorvastatin Calcium 20 Mg Tablet PO 20 mg BEDTIME SHARIF Administration Baclofen 10 mg 02/16/20 09:00 02/17/20 10:40 Baclofen 10 Mg Tablet PO 10 mg TID SHARIF Administration Cyclobenzaprine HCl 10 mg 02/16/20 21:00 02/16/20 21:19 Cyclobenzaprine Hcl 10 Mg Tablet PO 10 mg BEDTIME SHARIF Administration Dicyclomine HCl 20 mg 02/16/20 09:00 02/17/20 10:39 Dicyclomine Hcl 10 Mg Capsule PO 20 mg TID SHARIF Administration Gabapentin 300 mg 02/16/20 21:00 02/16/20 21:18 Gabapentin 300 Mg Capsule PO 300 mg BEDTIME SHARIF Administration Hydromorphone HCl 0.5 mg 02/16/20 02:36 02/17/20 10:35 Hydromorphone Hcl 0.5 Mg/0.5 Ml Syringe IVPUSH 0.5 mg Q2H PRN Administration Pain, Severe (Pain Scale 7-10) Dextrose/Lactated Ringer's 1,000 mls @ 125 mls/hr 02/16/20 02:36 02/17/20 12:01 D5lr IVCONT Infused .Q8H SHARIF Infusion Piperacillin Sod/Tazobactam 50 mls @ 100 mls/hr 02/16/20 12:00 02/17/20 06:03 Sod 3.375 gm/ Sodium Chloride IV Infused Q6H SHARIF Infusion Vancomycin HCl 1,500 mg/ 280 mls @ 200 mls/hr 02/17/20 09:00 02/17/20 12:01 Sodium Chloride IV Infused Q24H SHARIF Infusion Ibuprofen 600 mg 02/17/20 09:00 02/17/20 10:39 Ibuprofen 600 Mg Tablet PO 600 mg QID SHARIF Administration Lisinopril 10 mg 02/16/20 09:00 02/17/20 10:39 Lisinopril 10 Mg Tablet PO 10 mg DAILY SHARIF Administration Metoprolol Tartrate 50 mg 02/16/20 09:00 02/17/20 10:36 Metoprolol Tartrate 50 Mg Tablet PO 50 mg TID SHARIF Administration Protocol Omeprazole 20 mg 02/16/20 08:00 02/17/20 05:33 Omeprazole 20 Mg Capsule.Dr PO 20 mg DAILY@0630 SHARIF Administration Ondansetron HCl 4 mg 02/16/20 02:36 02/16/20 15:56 Ondansetron Hcl 4 Mg/2 Ml Vial IVPUSH 4 mg Q8H PRN Administration Nausea and Vomiting Oxycodone HCl 5 mg 02/16/20 02:36 02/16/20 05:49 Oxycodone Hcl Immed Release 5 Mg Tablet PO 5 mg Q6H PRN Administration Pain, Moderate (Pain Scale 4-6 Pharmacy Consult 1 each 02/16/20 02:36 Consult Rx Perform Med Rec MISCELLANE ONCE PRN Consult order Pharmacy Consult 1 each 02/17/20 07:34 Consult Rx Vancomycin Dosing MISCELLANE DAILY PRN Consult order Sertraline HCl 50 mg 02/16/20 09:00 02/17/20 10:40 Sertraline Hcl 50 Mg Tablet PO 50 mg DAILY SHARIF Administration Sodium Chloride 3 ml 02/16/20 02:36 02/17/20 10:40 0.9 % Sodium Chloride Flush 3 Ml Syringe IVFLUSH 3 ml QSHIFT SHARIF Administration Zolpidem Tartrate 5 mg 02/16/20 02:36 02/16/20 21:19 Zolpidem Tartrate 5 Mg Tablet PO 5 mg BEDTIME PRN Administration Insomnia Labs CBC & Chem 7: 02/17/20 05:25 02/17/20 05:25 Microbiology Microbiology Results: Microbiology 02/16/20 Unknown Umbilicus - Abscess Gram Stain - Final 02/16/20 Unknown Umbilicus - Abscess Routine Culture - Preliminary No growth to date. 02/15/20 21:05 Blood - Venous Blood Culture - Preliminary Coag negative Staphylococcus 02/15/20 21:05 Blood - Venous Blood Culture - Preliminary No growth after 24 hours. Assessment and Plan (1) Abdominal wall abscess: Status: Acute Assessment and Plan: 49 year old man admitted by general surgery and is status post fluid collection drainage. Abdominal abscess. with recent history of diverticulitis with perforation status post I&D Continue IV Zosyn follow-up blood and wound culture Hypertension Continue Amlodipine and benazapril. Metoprolol. HLD Continue statin. Neuropathy/chronic pain. Continue gabapentin, cyclobenzaprine and dicyclomine GERD Continue PPI. Depression/anxiety Continue sertraline. DVT prophylaxis compression devices per surgery
--- NOTE | 2020-02-17 15:47 | MHC.CM.PN ---
dc plan remanins home with resumption of hvns
[2020-02-17] MEDS: Cyclobenzaprine HCl 10 MG TABLET PO (20:41)
[2020-02-17] MEDS: Gabapentin 300 MG CAPSULE PO (20:44)
[2020-02-17] MEDS: Atorvastatin Calcium 20 MG TABLET PO (20:44)
[2020-02-18] VITALS (12 sets, daily range): BP systolic 118–143; BP diastolic 77–87; PULSE 56–67; RESP 16–20; TEMP 35.7–37; O2SAT 96–98
[2020-02-18] MEDS: HYDROmorphone HCl 0.5 MG/0.5 ML SYRINGE IVPUSH ×7 (00:04→22:59)
[2020-02-18] MEDS: Piperacillin Sodium/Tazobactam 3.375 GM in 0.9 % Sodium Chloride 50 ML IV ×5 (00:05→23:21)
[2020-02-18] MEDS: 0.9 % Sodium Chloride Flush 3 ML SYRINGE IVFLUSH ×3 (00:06→18:58)
[2020-02-18] MEDS: Dextrose 5 % and Lactated Ring 1,000 ML 125 ML IVCONT (05:02)
[2020-02-18] MEDS: Omeprazole 20 MG CAPSULE.DR PO (06:19)
[2020-02-18 06:47] LABS: MANUAL DIFF FLAG NO
[2020-02-18 06:56] LABS: Basophils Absolute Auto 0.1 X10*3/uL (0.0-0.2); Basophils Percent Auto 0.5 % (0-2); Eosinophils Absolute Auto 0.3 X10*3/uL (0.0-0.4); Eosinophils Percent Auto 1.9 % (0-4); Hematocrit 42.6 % (42-52); Hemoglobin 13.3 g/dl (14.0-18.0); Imm Gran Abs Auto 0.07 X10*3/uL (0.00-0.03); Imm Gran Pct Auto 0.5 % (0.0-0.4); Lymphocytes Percent Auto 20.4 % (20-40); Mean Corpuscular HGB Conc 31.2 g/dl (31.0-36.0); Mean Corpuscular Hemoglobin 27.5 pg (27.0-33.0); Mean Corpuscular Volume 88.2 fL (80-98); Mean Platelet Volume 12.1 fL (9.4-12.4); Monocytes Absolute Auto 1.2 X10*3/uL (0.1-1.2); Monocytes Percent Auto 7.8 % (2-11); Neutrophils Absolute Auto 10.2 X10*3/uL (2.0-8.3); Neutrophils Percent Auto 68.9 % (45-73); Platelet Count 301 X10*3/uL (160-400); Red Blood Count 4.83 X10*6/uL (4.60-5.80); Red Cell Distribution Width 14.3 % (11.0-16.0); White Blood Count 14.8 X10*3/uL (4.8-10.8)
--- NOTE | 2020-02-18 07:41 | P.PNGS_ITS ---
Subjective Subjective Interval history: Feels better this morning but still sore at drainage site, chest. Continues to have difficulty voiding. <Noelle Morris PA-C Last Filed: 02/18/20 08:17> Physical Exam Vital Signs: Vital Signs: Last Vital Signs Temp 97.5 F 02/18/20 07:21 Pulse 59 02/18/20 07:21 Resp 18 02/18/20 07:21 BP 143/87 H 02/18/20 07:21 Pulse Ox 96 02/18/20 07:21 Body Mass Index 38.0 <Noelle Morris PA-C - Last Filed: 02/18/20 08:17> Const: General: healthy appearing, comfortable, no acute distress and alert <Noelle Morris PA-C - Last Filed: 02/18/20 08:17> Orientation/consciousness: patient oriented x3 <Noelle Morris PA-C Last Filed: 02/18/20 08:17> Eyes: Sclerae: sclerae normal <Noelle Morris PA-C Last Filed: 02/18/20 08:17> Resp: Effort & Inspection: normal respiratory effort <Noelle Morris PA-C - Last Filed: 02/18/20 08:17> GI: Inspection: No distended <Noelle Morris PA-C Last Filed: 02/18/20 08:17> Palpation (GI): Soft to palpation, Tenderness to palpation present (GI) (mild at drainage site) and No Rebound tenderness present <Noelle Morris PA-C Last Filed: 02/18/20 08:17> Skin: General skin exam: no rashes or lesions noted <Noelle Morris PA-C Last Filed: 02/18/20 08:17> Neuro: General: patient oriented x3 <Noelle Morris PA-C Abigail Stewart Last Filed: 02/18/20 08:17> Extrem: General: Yes no clubbing, cyanosis or edema <ALEXSANDRA Kang Last Filed: 02/18/20 08:17> Progress Note: A&P Assessment and plan (1) Abdominal wall abscess: Status: Acute <Noelle Morris PA-C - Last Filed: 02/18/20 08:17> Assessment and Plan: Started on vanco yesterday. WBC now downtrending. Abd- mild tenderness at drainage site but no drainage, erythema. Cont IV abx. Repeat CBC tomorrow am. Wean off IV analgesics. If remains improved, stable for d/c tomorrow. Also c/o increased urinary frequency and weak stream- likely with some level of BPH. Will start on flomax today, bladder scan as needed. Has f/u appt with PCP next week. <Noelle Morris PA-C - Last Filed: 02/18/20 08:17> overall patient is much improved but continues to have some right chest discomfort and lower abdominal pain. He also reports difficulty urinating with difficulty starting a stream suggestive of BPH; agree with the above assessment and plan. Wound cultures negative today. Repeat blood cultures pending. <Ricco Echevarria MD - Last Filed: 02/18/20 10:21> (2) S/P colostomy takedown: Status: Acute <Noelle Morris PA-C - Last Filed: 02/18/20 08:17> (3) Hypertension: Status: Acute <Noelle Morris PA-C - Last Filed: 02/18/20 08:17> Assessment and Plan: Improved. <Noelle Morris PA-C - Last Filed: 02/18/20 08:17> (4) Anxiety: Status: Acute <Noelle Morris PA-C - Last Filed: 02/18/20 08:17> Fall Risk Details Current Medications: Current Medications Generic Name Dose Route Start Last Admin Trade Name Freq PRN Reason Stop Dose Admin Acetaminophen 650 mg 02/16/20 02:36 02/16/20 15:59 Acetaminophen 325 Mg Tablet PO 650 mg Q6H PRN Administration Pain, Mild (Pain Scale 1-3) Amlodipine Besylate 10 mg 02/16/20 09:00 02/17/20 10:40 Amlodipine Besylate 10 Mg Tablet PO 10 mg DAILY SHARIF Administration Protocol Atorvastatin Calcium 20 mg 02/16/20 21:00 02/17/20 20:44 Atorvastatin Calcium 20 Mg Tablet PO 20 mg BEDTIME SHARIF Administration Baclofen 10 mg 02/16/20 09:00 02/17/20 20:44 Baclofen 10 Mg Tablet PO 10 mg TID SHARIF Administration Cyclobenzaprine HCl 10 mg 02/16/20 21:00 02/17/20 20:41 Cyclobenzaprine Hcl 10 Mg Tablet PO 10 mg BEDTIME SHARIF Administration Dicyclomine HCl 20 mg 02/16/20 09:00 02/17/20 20:44 Dicyclomine Hcl 10 Mg Capsule PO 20 mg TID SHARIF Administration Gabapentin 300 mg 02/16/20 21:00 02/17/20 20:44 Gabapentin 300 Mg Capsule PO 300 mg BEDTIME SHARIF Administration Hydromorphone HCl 0.5 mg 02/16/20 02:36 02/18/20 05:01 Hydromorphone Hcl 0.5 Mg/0.5 Ml Syringe IVPUSH 0.5 mg Q2H PRN Administration Pain, Severe (Pain Scale 7-10) Dextrose/Lactated Ringer's 1,000 mls @ 125 mls/hr 02/16/20 02:36 02/18/20 06:54 D5lr IVCONT 125 mls/hr .Q8H SHARIF Infusion Piperacillin Sod/Tazobactam 50 mls @ 100 mls/hr 02/16/20 12:00 02/18/20 07:31 Sod 3.375 gm/ Sodium Chloride IV Infused Q6H SHARIF Infusion Vancomycin HCl 1,500 mg/ 280 mls @ 200 mls/hr 02/17/20 09:00 02/17/20 12:01 Sodium Chloride IV Infused Q24H SHARIF Infusion Ibuprofen 600 mg 02/17/20 09:00 02/17/20 20:46 Ibuprofen 600 Mg Tablet PO 600 mg QID SHARIF Administration Lisinopril 10 mg 02/16/20 09:00 02/17/20 10:39 Lisinopril 10 Mg Tablet PO 10 mg DAILY SHARIF Administration Metoprolol Tartrate 50 mg 02/16/20 09:00 02/17/20 20:43 Metoprolol Tartrate 50 Mg Tablet PO 50 mg TID SHARIF Administration Protocol Omeprazole 20 mg 02/16/20 08:00 02/18/20 06:19 Omeprazole 20 Mg Capsule.Dr PO 20 mg DAILY@0630 SHARIF Administration Ondansetron HCl 4 mg 02/16/20 02:36 02/16/20 15:56 Ondansetron Hcl 4 Mg/2 Ml Vial IVPUSH 4 mg Q8H PRN Administration Nausea and Vomiting Oxycodone HCl 5 mg 02/16/20 02:36 02/16/20 05:49 Oxycodone Hcl Immed Release 5 Mg Tablet PO 5 mg Q6H PRN Administration Pain, Moderate (Pain Scale 4-6 Pharmacy Consult 1 each 02/16/20 02:36 Consult Rx Perform Med Rec MISCELLANE ONCE PRN Consult order Pharmacy Consult 1 each 02/17/20 07:34 Consult Rx Vancomycin Dosing MISCELLANE DAILY PRN Consult order Sertraline HCl 50 mg 02/16/20 09:00 02/17/20 10:40 Sertraline Hcl 50 Mg Tablet PO 50 mg DAILY SHARIF Administration Sodium Chloride 3 ml 02/16/20 02:36 02/18/20 00:06 0.9 % Sodium Chloride Flush 3 Ml Syringe IVFLUSH 3 ml QSHIFT SHARIF Administration Zolpidem Tartrate 5 mg 02/16/20 02:36 02/16/20 21:19 Zolpidem Tartrate 5 Mg Tablet PO 5 mg BEDTIME PRN Administration Insomnia <Noelel Morris PA-C - Last Filed: 02/18/20 08:17> Time Spent With Patient Time: Total time spent is greater than 50% in coordination of care (as documented) at patient's floor/unit and/or counseling patient: <Noelle Morris PA-C - Last Filed: 02/18/20 08:17> Time with patient: less than 15 minutes <Noelle Morris PA-C - Last Filed: 02/18/20 08:17> Procedures Abscess I/D Date of Service: 02/18/20 <Noelle Morris PA-C - Last Filed: 02/18/20 08:17>
[2020-02-18] MEDS: amLODIPine Besylate 10 MG TABLET PO (08:02)
[2020-02-18] MEDS: Dicyclomine HCl 10 MG CAPSULE 20 MG PO ×3 (08:03→21:58)
[2020-02-18] MEDS: Ibuprofen 600 MG TABLET PO ×4 (08:04→21:56)
[2020-02-18] MEDS: Metoprolol Tartrate 50 MG TABLET PO ×3 (08:04→21:57)
[2020-02-18] MEDS: lisinopriL 10 MG TABLET PO (08:05)
[2020-02-18] MEDS: Baclofen 10 MG TABLET PO ×3 (08:05→21:56)
[2020-02-18] MEDS: Sertraline HCL 50 MG TABLET PO (08:05)
[2020-02-18] MEDS: Tamsulosin HCL 0.4 MG CAPSULE PO (08:06)
--- NOTE | 2020-02-18 14:03 | HO.PM.IMPN ---
Subjective Subjective Date of Service: 02/18/20 Interval History: Patient seen and examined at bedside patient reporting abdominal pain Review of Systems Denies any recent fever chills or decrease in appetite respiratory denies any shortness of breath coverage production cardiovascular is adjustment of any PND or edema gastrointestinal See HPI genitourinary See HPI musculoskeletal denies any joint pain or swelling neuropsych denies any weakness or seizures all other systems reviewed are negative Constitutional Constitutional: Denies chills, Denies fever(s), Denies headache(s), Denies poor appetite and Reports weakness ENT Ears, Nose, Mouth, and Throat: Denies dizziness and Denies headache(s) Cardiovascular Cardiovascular: Reports chest pain, Reports rapid heart rate, Denies palpitations, Denies dyspnea and Denies slow heart rate Respiratory Respiratory: Denies chest congestion, Denies cough, Denies pain on inspiration, Denies dyspnea and Denies wheezing Gastrointestinal Gastrointestinal: Reports abdominal pain, Denies bloating, Denies change in stool character, Denies constipation, Reports diarrhea, Reports nausea, Denies vomiting and Denies hematemesis Musculoskeletal Musculoskeletal: Denies back pain, Denies arthralgias, Denies joint swelling and Denies numbness Integumentary/Breasts Skin/Breast: Denies change in pigmentation, Denies erythema and Denies rash Neurologic Neurologic: Denies confusion, Denies dizziness, Denies headache(s), Denies numbness and Reports weakness Psychiatric Psychiatric: Denies anxiety, Denies confusion and Denies depression Endocrine Endocrine: Denies palpitations Hematologic/Lymphatic Hematologic/Lymphatic: Denies easy bleeding, Denies easy bruising and Denies lymphadenopathy Allergic/Immunologic Allergic/Immunologic: Denies wheezing Physical Exam Vital Signs: Vital Signs: Last Vital Signs Temp 97.9 F 02/17/20 11:25 Pulse 71 02/17/20 11:25 Resp 20 02/17/20 11:25 BP 137/82 02/17/20 11:25 Pulse Ox 98 02/17/20 11:25 Body Mass Index 38.0 Appearing in no acute distress head is normocephalic atraumatic eyes pupils are PERRLA sclera is anicteric mouth throat mucous membranes are intact and moist neck is supple no lymphadenopathy, no JVD noted lung sounds are clear to auscultation heart regular rate rhythm, clear S1, S2 positive bowel sounds, abdomen is soft, Dressing to lower abdomen dry and intact. Old suture scars from colostomy and reversal. neuro patient is alert x3, no focal deficits Const: Other: Last Vital Signs Temp 97.9 F 02/17/20 11:25 Pulse 71 02/17/20 11:25 Resp 20 02/17/20 11:25 BP 137/82 02/17/20 11:25 Pulse Ox 98 02/17/20 11:25 Body Mass Index 38.0 General: No confusion Orientation/consciousness: No confusion Cardio: Other: Last Vital Signs Temp 97.9 F 02/17/20 11:25 Pulse 71 02/17/20 11:25 Resp 20 02/17/20 11:25 BP 137/82 02/17/20 11:25 Pulse Ox 98 02/17/20 11:25 Body Mass Index 38.0 Neuro: General: No confusion Objective Data Current Medications Generic Name Dose Route Start Last Admin Trade Name Freq PRN Reason Stop Dose Admin Acetaminophen 650 mg 02/16/20 02:36 02/16/20 15:59 Acetaminophen 325 Mg Tablet PO 650 mg Q6H PRN Administration Pain, Mild (Pain Scale 1-3) Amlodipine Besylate 10 mg 02/16/20 09:00 02/18/20 08:02 Amlodipine Besylate 10 Mg Tablet PO 10 mg DAILY [facility] Administration Protocol Atorvastatin Calcium 20 mg 02/16/20 21:00 02/17/20 20:44 Atorvastatin Calcium 20 Mg Tablet PO 20 mg BEDTIME [facility] Administration Baclofen 10 mg 02/16/20 09:00 02/18/20 08:05 Baclofen 10 Mg Tablet PO 10 mg TID [facility] Administration Cyclobenzaprine HCl 10 mg 02/16/20 21:00 02/17/20 20:41 Cyclobenzaprine Hcl 10 Mg Tablet PO 10 mg BEDTIME [facility] Administration Dicyclomine HCl 20 mg 02/16/20 09:00 02/18/20 08:03 Dicyclomine Hcl 10 Mg Capsule PO 20 mg TID [facility] Administration Gabapentin 300 mg 02/16/20 21:00 02/17/20 20:44 Gabapentin 300 Mg Capsule PO 300 mg BEDTIME [facility] Administration Hydromorphone HCl 0.5 mg 02/16/20 02:36 02/18/20 12:44 Hydromorphone Hcl 0.5 Mg/0.5 Ml Syringe IVPUSH 0.5 mg Q2H PRN Administration Pain, Severe (Pain Scale 7-10) Piperacillin Sod/Tazobactam 50 mls @ 100 mls/hr 02/16/20 12:00 02/18/20 12:36 Sod 3.375 gm/ Sodium Chloride IV 100 mls/hr Q6H [facility] Administration Vancomycin HCl 1,500 mg/ 280 mls @ 200 mls/hr 02/17/20 09:00 02/18/20 09:30 Sodium Chloride IV Infused Q24H [facility] Infusion Ibuprofen 600 mg 02/17/20 09:00 02/18/20 12:32 Ibuprofen 600 Mg Tablet PO 600 mg QID [facility] Administration Lisinopril 10 mg 02/16/20 09:00 02/18/20 08:05 Lisinopril 10 Mg Tablet PO 10 mg DAILY [facility] Administration Metoprolol Tartrate 50 mg 02/16/20 09:00 02/18/20 08:04 Metoprolol Tartrate 50 Mg Tablet PO 50 mg TID [facility] Administration Protocol Omeprazole 20 mg 02/16/20 08:00 02/18/20 06:19 Omeprazole 20 Mg Capsule.Dr PO 20 mg DAILY@0630 [facility] Administration Ondansetron HCl 4 mg 02/16/20 02:36 02/16/20 15:56 Ondansetron Hcl 4 Mg/2 Ml Vial IVPUSH 4 mg Q8H PRN Administration Nausea and Vomiting Oxycodone HCl 5 mg 02/16/20 02:36 02/16/20 05:49 Oxycodone Hcl Immed Release 5 Mg Tablet PO 5 mg Q6H PRN Administration Pain, Moderate (Pain Scale 4-6 Oxycodone HCl 10 mg 02/18/20 08:14 Oxycodone Hcl Immed Release 5 Mg Tablet PO Q4H PRN Pain, Severe (Pain Scale 7-10) Pharmacy Consult 1 each 02/16/20 02:36 Consult Rx Perform Med Rec MISCELLANE ONCE PRN Consult order Pharmacy Consult 1 each 02/17/20 07:34 Consult Rx Vancomycin Dosing MISCELLANE DAILY PRN Consult order Sertraline HCl 50 mg 02/16/20 09:00 02/18/20 08:05 Sertraline Hcl 50 Mg Tablet PO 50 mg DAILY [facility] Administration Sodium Chloride 3 ml 02/16/20 02:36 02/18/20 08:06 0.9 % Sodium Chloride Flush 3 Ml Syringe IVFLUSH 3 ml QSHIFT [facility] Administration Tamsulosin HCl 0.4 mg 02/18/20 09:00 02/18/20 08:06 Tamsulosin Hcl 0.4 Mg Capsule PO 0.4 mg DAILY [facility] Administration Zolpidem Tartrate 5 mg 02/16/20 02:36 02/16/20 21:19 Zolpidem Tartrate 5 Mg Tablet PO 5 mg BEDTIME PRN Administration Insomnia Labs CBC & Chem 7: 02/18/20 05:40 02/17/20 05:25 Microbiology Microbiology Results: Microbiology 02/17/20 10:42 Blood - Venous Blood Culture - Preliminary No growth after 24 hours. 02/17/20 10:42 Blood - Venous Blood Culture - Preliminary No growth after 24 hours. 02/15/20 21:05 Blood - Venous Blood Culture - Preliminary No growth after 48 hours. 02/16/20 Unknown Umbilicus - Abscess Gram Stain - Final 02/16/20 Unknown Umbilicus - Abscess Routine Culture - Preliminary No growth to date. 02/15/20 21:05 Blood - Venous Blood Culture - Preliminary Coag negative Staphylococcus Assessment and Plan (1) Abdominal wall abscess: Status: Acute Assessment and Plan: 49 year old man admitted by general surgery and is status post fluid collection drainage. Abdominal abscess. with recent history of diverticulitis with perforation Status post I&D Continue IV Zosyn Blood and wound culture pending Hypertension Continue Amlodipine and benazapril. Metoprolol. HLD Continue statin. Neuropathy/chronic pain. Continue gabapentin, cyclobenzaprine and dicyclomine GERD Continue PPI. Depression/anxiety Continue sertraline. DVT prophylaxis compression devices per surgery
[2020-02-18] MEDS: oxyCODONE HCl Immed Release 5 MG TABLET PO (21:51)
[2020-02-18] MEDS: Cyclobenzaprine HCl 10 MG TABLET PO (21:57)
[2020-02-18] MEDS: Atorvastatin Calcium 20 MG TABLET PO (21:58)
[2020-02-18] MEDS: Gabapentin 300 MG CAPSULE PO (22:59)
[2020-02-19] MEDS: 0.9 % Sodium Chloride Flush 3 ML SYRINGE IVFLUSH ×2 (01:12→07:30)
[2020-02-19] MEDS: HYDROmorphone HCl 0.5 MG/0.5 ML SYRINGE IVPUSH ×3 (02:10→06:22)
[2020-02-19] MEDS: Zolpidem Tartrate 5 MG TABLET PO (04:08)
[2020-02-19] MEDS: Piperacillin Sodium/Tazobactam 3.375 GM in 0.9 % Sodium Chloride 50 ML IV (06:21)
[2020-02-19] MEDS: Omeprazole 20 MG CAPSULE.DR PO (06:22)
[2020-02-19 07:21] VITALS: BP 140/68; PULSE 53; RESP 20; TEMP 36.8; O2SAT 94
[2020-02-19] MEDS: Dicyclomine HCl 10 MG CAPSULE 20 MG PO (07:41)
[2020-02-19] MEDS: Sertraline HCL 50 MG TABLET PO (07:41)
[2020-02-19] MEDS: Baclofen 10 MG TABLET PO (07:41)
[2020-02-19 07:42] VITALS: BP 140/68; PULSE 65
[2020-02-19] MEDS: Ibuprofen 600 MG TABLET PO (07:42)
[2020-02-19] MEDS: Tamsulosin HCL 0.4 MG CAPSULE PO (07:42)
[2020-02-19] MEDS: lisinopriL 10 MG TABLET PO (07:42)
[2020-02-19] MEDS: Metoprolol Tartrate 50 MG TABLET PO (07:42)
[2020-02-19 07:43] VITALS: BP 140/68; PULSE 65
[2020-02-19] MEDS: amLODIPine Besylate 10 MG TABLET PO (07:43)
--- NOTE | 2020-02-19 08:26 | P.PNGS_ITS ---
Subjective Subjective Interval history: Feels better this morning. Wants to go home. <Noelle Morris PA-C - Last Filed: 02/19/20 08:31> Physical Exam Vital Signs: Vital Signs: Last Vital Signs Temp 98.2 F 02/19/20 07:21 Pulse 65 02/19/20 07:43 Resp 20 02/19/20 07:21 BP 140/68 H 02/19/20 07:43 Pulse Ox 94 02/19/20 07:21 Body Mass Index 38.0 <Noelle Morris PA-C - Last Filed: 02/19/20 08:31> Const: General: comfortable, no acute distress and alert <Noelle Morris PA-C - Last Filed: 02/19/20 08:31> Orientation/consciousness: patient oriented x3 <Noelle Morris PA-C - Last Filed: 02/19/20 08:31> GI: Palpation (GI): Soft to palpation and Tenderness to palpation present (GI) (mild) <Noelle Morris PA-C - Last Filed: 02/19/20 08:31> Skin: Other: normal color, warm and dry <Noelle Morris PA-C - Last Filed: 02/19/20 08:31> Neuro: General: patient oriented x3 <Noelle Morris PA-C - Last Filed: 02/19/20 08:31> Progress Note: A&P Assessment and plan (1) Abdominal wall abscess: Status: Acute <Noelle Morris PA-C - Last Filed: 02/19/20 08:31> Assessment and Plan: S/p US guided drainage of abdominal wall fluid collection and has been on IV zosyn and vanco- fluid cultures negative. Repeat blood cultures negative- first likely contaminant. WBC downtrending. VSS- afebrile. Abd exam benign. Stable for d/c to home today. Will d/c on PO course of doxycycline. F/u with Dr. Echevarria in 1 week in office. Likely with BPH- started on flomax. Has f/u with PCP next week. <Noelle Morris PA-C - Last Filed: 02/19/20 08:31> All his cultures have been negative including the wound culture. Fluid collection is consistent with a postoperative seroma, not an abscess. Agree with the above assessment and plan. He is ok for discharge to home, follow up in office in one week. Follow up with PCP as well for HTN, urinary issues. <Ricco Echevarria MD - Last Filed: 02/19/20 08:38> (2) S/P colostomy takedown: Status: Acute <Noelle Morris PA-C - Last Filed: 02/19/20 08:31> (3) Anxiety: Status: Acute <Noelle Morris PA-C - Last Filed: 02/19/20 08:31> (4) Hypertension: Status: Acute <Noelle Morris PA-C - Last Filed: 02/19/20 08:31> Assessment and Plan: BP better controlled during stay. F/u appt with PCP next week. Continue home medications. <Noelle Morris PA-C - Last Filed: 02/19/20 08:31> Fall Risk Details Current Medications: Current Medications Generic Name Dose Route Start Last Admin Trade Name Freq PRN Reason Stop Dose Admin Acetaminophen 650 mg 02/16/20 02:36 02/16/20 15:59 Acetaminophen 325 Mg Tablet PO 650 mg Q6H PRN Administration Pain, Mild (Pain Scale 1-3) Amlodipine Besylate 10 mg 02/16/20 09:00 02/19/20 07:43 Amlodipine Besylate 10 Mg Tablet PO 10 mg DAILY SHAR[facility] Administration Protocol Atorvastatin Calcium 20 mg 02/16/20 21:00 02/18/20 21:58 Atorvastatin Calcium 20 Mg Tablet PO 20 mg BEDTIME SH[facility] Administration Baclofen 10 mg 02/16/20 09:00 02/19/20 07:41 Baclofen 10 Mg Tablet PO 10 mg TID [facility] Administration Cyclobenzaprine HCl 10 mg 02/16/20 21:00 02/18/20 21:57 Cyclobenzaprine Hcl 10 Mg Tablet PO 10 mg BEDTIME [facility] Administration Dicyclomine HCl 20 mg 02/16/20 09:00 02/19/20 07:41 Dicyclomine Hcl 10 Mg Capsule PO 20 mg TID [facility] Administration Gabapentin 300 mg 02/16/20 21:00 02/18/20 22:59 Gabapentin 300 Mg Capsule PO 300 mg BEDTIME [facility] Administration Hydromorphone HCl 0.5 mg 02/16/20 02:36 02/19/20 06:22 Hydromorphone Hcl 0.5 Mg/0.5 Ml Syringe IVPUSH 0.5 mg Q2H PRN Administration Pain, Severe (Pain Scale 7-10) Piperacillin Sod/Tazobactam 50 mls @ 100 mls/hr 02/16/20 12:00 02/19/20 07:31 Sod 3.375 gm/ Sodium Chloride IV Infused Q6H [facility] Infusion Vancomycin HCl 1,500 mg/ 280 mls @ 200 mls/hr 02/17/20 09:00 02/19/20 07:44 Sodium Chloride IV 250 mls/hr Q24H [facility] Administration Ibuprofen 600 mg 02/17/20 09:00 02/19/20 07:42 Ibuprofen 600 Mg Tablet PO 600 mg QID [facility] Administration Lisinopril 10 mg 02/16/20 09:00 02/19/20 07:42 Lisinopril 10 Mg Tablet PO 10 mg DAILY [facility] Administration Metoprolol Tartrate 50 mg 02/16/20 09:00 02/19/20 07:42 Metoprolol Tartrate 50 Mg Tablet PO 50 mg TID [facility] Administration Protocol Omeprazole 20 mg 02/16/20 08:00 02/19/20 06:22 Omeprazole 20 Mg Capsule.Dr PO 20 mg DAILY@0630 [facility] Administration Ondansetron HCl 4 mg 02/16/20 02:36 02/16/20 15:56 Ondansetron Hcl 4 Mg/2 Ml Vial IVPUSH 4 mg Q8H PRN Administration Nausea and Vomiting Oxycodone HCl 5 mg 02/16/20 02:36 02/18/20 21:51 Oxycodone Hcl Immed Release 5 Mg Tablet PO 5 mg Q6H PRN Administration Pain, Moderate (Pain Scale 4-6 Oxycodone HCl 10 mg 02/18/20 08:14 Oxycodone Hcl Immed Release 5 Mg Tablet PO Q4H PRN Pain, Severe (Pain Scale 7-10) Pharmacy Consult 1 each 02/17/20 07:34 Consult Rx Vancomycin Dosing MISCELLANE DAILY PRN Consult order Sertraline HCl 50 mg 02/16/20 09:00 02/19/20 07:41 Sertraline Hcl 50 Mg Tablet PO 50 mg DAILY [facility] Administration Sodium Chloride 3 ml 02/16/20 02:36 02/19/20 07:30 0.9 % Sodium Chloride Flush 3 Ml Syringe IVFLUSH 3 ml QSHIFT [facility] Administration Tamsulosin HCl 0.4 mg 02/18/20 09:00 02/19/20 07:42 Tamsulosin Hcl 0.4 Mg Capsule PO 0.4 mg DAILY [facility] Administration Zolpidem Tartrate 5 mg 02/16/20 02:36 02/19/20 04:08 Zolpidem Tartrate 5 Mg Tablet PO 5 mg BEDTIME PRN Administration Insomnia <Noelle Morris PA-C - Last Filed: 02/19/20 08:31> Time Spent With Patient Time: Total time spent is greater than 50% in coordination of care (as documented) at patient's floor/unit and/or counseling patient: <Noelle Morris PA-C - Last Filed: 02/19/20 08:31> Time with patient: less than 15 minutes <ALEXSANDRA Kang Last Filed: 02/19/20 08:31> Procedures Abscess I/D Date of Service: 02/19/20 <ALEXSANDRA Kang Last Filed: 02/19/20 08:31>
--- NOTE | 2020-02-19 08:44 | MHC.CM.PN ---
pt dcd home with new referral of [facility]
[2020-02-19 08:45] LABS: Hematocrit 42.8 % (42-52); Hemoglobin 13.3 g/dl (14.0-18.0); Mean Corpuscular HGB Conc 31.1 g/dl (31.0-36.0); Mean Corpuscular Hemoglobin 27.4 pg (27.0-33.0); Mean Corpuscular Volume 88.1 fL (80-98); Mean Platelet Volume 12.1 fL (9.4-12.4); Platelet Count 288 X10*3/uL (160-400); Red Blood Count 4.86 X10*6/uL (4.60-5.80); Red Cell Distribution Width 14.5 % (11.0-16.0)
[2020-02-19 09:14] LABS: Vancomycin Random 21.6 mcg/mL (15-20)
[2020-02-19] MEDS: oxyCODONE HCl Immed Release 5 MG TABLET 10 MG PO (09:46)
--- NOTE | 2020-02-19 13:17 | PM.DS ---
DS: Providers Provider Date of admission: 02/15/20 22:31 Primary care physician: Unknown Physician Consults: 02/16/20 07:45 Consult to Hospitalist Routine Consulting Provider: Hospitalist Reason for consultation: hypertension, right upper chest pain, possible abdominal wall abscess DS: Diagnosis Discharge Diagnosis (1) Abdominal wall seroma: Status: Acute DS: Medications Discharge Medications Home Medications: Home Medications Medication Instructions Recorded Confirmed amlodipine 10 mg tablet 10 mg PO DAILY 12/28/19 02/15/20 aspirin 81 mg tablet,delayed 81 mg PO DAILY 12/28/19 02/15/20 release atorvastatin 20 mg tablet 20 mg PO DAILY 12/28/19 02/15/20 baclofen 10 mg tablet 10 mg PO TID 12/28/19 02/15/20 cyclobenzaprine 10 mg tablet 10 mg PO BEDTIME 12/28/19 02/15/20 dicyclomine 20 mg tablet 20 mg PO TID 12/28/19 02/15/20 docusate sodium 100 mg capsule 100 mg PO DAILY 12/28/19 02/15/20 metoprolol tartrate 50 mg tablet 50 mg PO TID 12/28/19 02/16/20 omeprazole 20 mg capsule,delayed 20 mg PO DAILY 12/28/19 02/15/20 release gabapentin 300 mg PO BEDTIME 01/07/20 02/15/20 benazepril 10 mg PO DAILY 02/16/20 02/16/20 hydromorphone 2 mg PO Q6H PRN 02/16/20 02/16/20 sertraline 50 mg PO DAILY 02/16/20 02/16/20 Previous Rx's Medication Instructions Recorded doxycycline hyclate 100 mg PO BID #10 cap 02/18/20 tamsulosin [Flomax] 0.4 mg PO DAILY #30 cap 02/18/20 DS: Summary Hospital Course Hospital Course: Kenan Treviño is a 49 year old male presenting with complaints of pain in the right upper chest and lower abdomen, identified by the visiting nurse to have elevated blood pressure as well. He was subsequently sent to the emergency department for further evaluation. Kenan has a history of sigmoid diverticulitis with perforation and is status post sigmoid colectomy with Ammy's procedure and recently underwent closure of the colostomy. Patient reports a just was not feeling right at home with increased discomfort in the chest and abdomen. He also reports pain in the abdomen with urinating. Workup in the emergency department revealed an elevated WBC of 17. CT of the chest was negative for pulmonary embolism. CT of the abdomen revealed a fluid collection in the abdominal wall suggestive of a possible subcutaneous abscess. The possibility of a fistula could not be ruled out. Patient was admitted to the surgical service for further management. Antibiotics were started and arrangements made for interventional radiology drainage of the fluid collection noted on CT. Ultrasound-guided aspiration was performed in the fluid sent for cultures. Blood cultures obtained in the emergency department were positive in 1 bottle with gram-positive cocci in clusters. He was subsequently started on vancomycin as well as Zosyn. Repeat blood cultures were obtained and after 2 days these were negative in 2 bottles. The patient has some mild discomfort in the lower incision but does feel improved. He denies fever or chills. He is tolerating a regular diet without nausea or vomiting. His bowels have returned to normal as well. He will be discharged to home on oral antibiotics. He will follow up my office in approximately 1 week for wound check. He will also follow up with his primary care physician. Time Spent with Patient Time attestation: Total time spent providing and/or coordinating discharge services: Physical Exam Vital Signs: Vital Signs: Last Vital Signs Temp 98.2 F 02/19/20 07:21 Pulse 65 02/19/20 07:43 Resp 20 02/19/20 07:21 BP 140/68 H 02/19/20 07:43 Pulse Ox 94 02/19/20 07:21 Body Mass Index 38.0 Const: General: cooperative, comfortable and well developed; No confusion Nutritional Appearance: well nourished Orientation/consciousness: patient oriented x3 and No confusion Eyes: Sclerae: sclerae normal EOM: EOMs intact bilaterally Neck: Neck: Yes normal visual inspection Resp: Effort & Inspection: normal respiratory effort, no cough and no respiratory distress Cardio: Jugular venous distension: no JVD Rate: regular rate Rhythm: regular rhythm GI: Inspection: Yes normal to inspection and Yes Abdominal panniculus present Palpation (GI): Soft to palpation, nontender, no guarding and not rigid Percussion: Yes normal to percussion Auscultation: normal bowel sounds Abdomen image: 1. 2. Skin: General skin exam: dry skin Rashes: no rashes Neuro: General: patient oriented x3, no focal motor deficits and No confusion Extrem: General: Yes no clubbing, cyanosis or edema Right upper extremity: normal capillary refill Left upper extremity: full ROM DS: Data Data Completed and Pending Completed studies during hospitalization [Text1]: Procedures Reposition Sigmoid Colon, Open Approach (01/18/20) Labs on day of discharge: 02/15/20 18:26 ECG 12 lead EKG Stat Continuous Cardiac Monitoring NOW EKG Documentation DIRECTED IV insert/maintain ONCE XR chest 1V Stat 02/15/20 18:27 Vital Signs, Orthostatic NOW 02/15/20 19:02 CT abdomen pelvis w con Stat CT angio chest PE protocol Stat 02/15/20 19:19 HYDROmorphone HCl [Dilaudid] 2 mg PO ONCE ONE 02/15/20 19:26 Basic Metabolic Panel Stat Complete Blood Count Auto Diff Stat D Dimer Stat Liver Panel Stat SARS-CoV2/FLU/RSV Stat Troponin-I High Sensitivity Stat 02/15/20 19:42 Metoprolol Tartrate [Lopressor] 25 mg PO ONCE ONE 02/15/20 20:29 iohexoL 350 MG/ML [Omnipaque 350 MG/ML] 100 ml IV ONCE ONE 02/15/20 20:30 0.9 % Sodium Chloride [Ns] 1,000 ml IVCONT 999 mls/hr 02/15/20 21:05 Lactic Acid Stat 02/15/20 21:23 ondansetron HCL [Zofran] 4 mg IVPUSH ONCE ONE 02/15/20 22:23 HYDROmorphone HCl [Dilaudid] 1 mg IVPUSH ONCE ONE 02/15/20 22:24 Piperacillin Sodium/Tazobactam [Zosyn] 3.375 gm 0.9 % Sodium Chloride [Ns] 50 ml IV ONCE 02/15/20 22:27 Piperacillin Sodium/Tazobactam [Zosyn] 3.375 gm IV .STK-MED ONE Transfer Order Routine 02/15/20 22:29 Gabapentin [Neurontin] 300 mg PO ONCE ONE 02/15/20 22:31 Code Status Routine 02/15/20 23:43 Troponin-I High Sensitivity Stat 02/16/20 Routine Culture w Gram Stain Routine 02/16/20 02:36 0.9 % Sodium Chloride Flush [NS Flush] 3 ml IVFLUSH QSHIFT Acetaminophen [Tylenol] 650 mg PO Q6H PRN Consult Rx Perform Med Rec 1 each MISCELLANE ONCE PRN Dextrose 5 % and Lactated Ring [D5lr] 1,000 ml IVCONT 125 mls/hr HYDROmorphone HCl [Dilaudid] 0.5 mg IVPUSH Q2H PRN Zolpidem Tartrate [Ambien] 5 mg PO BEDTIME PRN ondansetron HCL [Zofran] 4 mg IVPUSH Q8H PRN oxyCODONE HCl Immed Release [Roxicodone] 5 mg PO Q6H PRN 02/16/20 02:36 Ambulate QSHIFT WHILE AWAKE Compression Therapy QSHIFT IV insert/maintain Q4HR Intake and Output QSHIFTE Vital Signs QSHIFT US drain farrukh retro perc Routine 02/16/20 05:37 Piperacillin Sodium/Tazobactam [Zosyn] 3.375 gm IV .STK-MED ONE 02/16/20 05:40 Basic Metabolic Panel DAILY@0600 Complete Blood Count Auto Diff DAILY@0600 02/16/20 06:00 Piperacillin Sodium/Tazobactam [Zosyn] 3.375 gm 0.9 % Sodium Chloride [Ns] 50 ml IV ONCE 02/16/20 08:00 Omeprazole [PriLOSEC] 20 mg PO DAILY@0630 02/16/20 09:00 Baclofen [Lioresal] 10 mg PO TID Dicyclomine HCl [Bentyl] 20 mg PO TID Metoprolol Tartrate [Lopressor] 50 mg PO DAILY Metoprolol Tartrate [Lopressor] 50 mg PO TID Sertraline HCL [Zoloft] 25 mg PO DAILY Sertraline HCL [Zoloft] 50 mg PO DAILY amLODIPine Besylate [Norvasc] 10 mg PO DAILY lisinopriL [Zestril] 10 mg PO DAILY 02/16/20 09:07 Partial Thromboplastin Time Stat Prothrombin Time INR Stat 02/16/20 Breakfast NPO Diet 02/16/20 10:34 Lidocaine HCl 1 % MPF [Xylocaine 1 % MPF] 5 ml SUBCUT ONCE ONE 02/16/20 10:53 Piperacillin Sodium/Tazobactam [Zosyn] 3.375 gm IV .STK-MED ONE 02/16/20 12:00 Piperacillin Sodium/Tazobactam [Zosyn] 3.375 gm 0.9 % Sodium Chloride [Ns] 50 ml IV Q6H 02/16/20 17:00 Piperacillin Sodium/Tazobactam [Zosyn] 3.375 gm IV .STK-MED ONE 02/16/20 21:00 Atorvastatin Calcium [Lipitor] 20 mg PO BEDTIME Cyclobenzaprine HCl [Flexeril] 10 mg PO BEDTIME Gabapentin [Neurontin] 300 mg PO BEDTIME 02/16/20 23:14 Piperacillin Sodium/Tazobactam [Zosyn] 3.375 gm IV .STK-MED ONE 02/17/20 05:25 Basic Metabolic Panel Routine Complete Blood Count Auto Diff Routine Piperacillin Sodium/Tazobactam [Zosyn] 3.375 gm IV .STK-MED ONE 02/17/20 07:34 Consult Rx Vancomycin Dosing 1 each MISCELLANE DAILY PRN 02/17/20 09:00 Ibuprofen [Motrin] 600 mg PO QID vancomycin HCL 1,500 mg 0.9 % Sodium Chloride [Ns] 250 ml IV Q24H 02/17/20 13:37 Piperacillin Sodium/Tazobactam [Zosyn] 3.375 gm IV .STK-MED ONE 02/17/20 18:43 Piperacillin Sodium/Tazobactam [Zosyn] 3.375 gm IV .STK-MED ONE 02/17/20 23:59 Piperacillin Sodium/Tazobactam [Zosyn] 3.375 gm IV .STK-MED ONE 02/18/20 05:40 Complete Blood Count Auto Diff Routine 02/18/20 06:09 Piperacillin Sodium/Tazobactam [Zosyn] 3.375 gm IV .STK-MED ONE 02/18/20 07:42 vancomycin HCL 750 mg IV .STK-MED ONE 02/18/20 07:45 Bladder Scan .as needed 02/18/20 08:14 oxyCODONE HCl Immed Release [Roxicodone] 10 mg PO Q4H PRN 02/18/20 09:00 Tamsulosin HCL [Flomax] 0.4 mg PO DAILY 02/18/20 12:22 Piperacillin Sodium/Tazobactam [Zosyn] 3.375 gm IV .STK-MED ONE 02/18/20 18:56 Piperacillin Sodium/Tazobactam [Zosyn] 3.375 gm IV .STK-MED ONE 02/18/20 23:16 Piperacillin Sodium/Tazobactam [Zosyn] 3.375 gm IV .STK-MED ONE 02/19/20 06:16 Piperacillin Sodium/Tazobactam [Zosyn] 3.375 gm IV .STK-MED ONE 02/19/20 07:35 vancomycin HCL 750 mg IV .STK-MED ONE 02/19/20 08:00 Complete Blood Count no Diff Routine Vancomycin Random Routine Laboratory Last Values WBC 15.0 X10*3/uL (4.8-10.8) H 02/19/20 08:00 RBC 4.86 X10*6/uL (4.60-5.80) 02/19/20 08:00 Hgb 13.3 g/dl (14.0-18.0) L 02/19/20 08:00 Hct 42.8 % (42-52) 02/19/20 08:00 MCV 88.1 fL (80-98) 02/19/20 08:00 MCH 27.4 pg (27.0-33.0) 02/19/20 08:00 MCHC 31.1 g/dl (31.0-36.0) 02/19/20 08:00 RDW 14.5 % (11.0-16.0) 02/19/20 08:00 Plt Count 288 X10*3/uL (160-400) 02/19/20 08:00 MPV 12.1 fL (9.4-12.4) 02/19/20 08:00 Immature Gran % (Auto) 0.5 % (0.0-0.4) H 02/18/20 05:40 Neut % (Auto) 68.9 % (45-73) 02/18/20 05:40 Lymph % (Auto) 20.4 % (20-40) 02/18/20 05:40 Mcpherson % (Auto) 7.8 % (2-11) 02/18/20 05:40 Eos % (Auto) 1.9 % (0-4) 02/18/20 05:40 Baso % (Auto) 0.5 % (0-2) 02/18/20 05:40 Lymph # (Auto) 3.0 X10*3/uL (1.2-4.9) 02/18/20 05:40 [place]pherson # (Auto) 1.2 X10*3/uL (0.1-1.2) 02/18/20 05:40 Eos # (Auto) 0.3 X10*3/uL (0.0-0.4) 02/18/20 05:40 Baso # (Auto) 0.1 X10*3/uL (0.0-0.2) 02/18/20 05:40 Abs Immat Gran (auto) 0.07 X10*3/uL (0.00-0.03) H 02/18/20 05:40 Absolute Neuts (auto) 10.2 X10*3/uL (2.0-8.3) H 02/18/20 05:40 Absolute Nucleated RBC 0.000 X10*3/uL (0.0-0.012) 02/19/20 08:00 Nucleated RBC % (auto) 0.0 /100WBC (0.0-0.2) 02/19/20 08:00 PT 14.1 SEC (10.8-13.0) H 02/16/20 09:07 INR 1.2 (0.9-1.1) H 02/16/20 09:07 APTT 38.6 SEC (24.1-38.0) H 02/16/20 09:07 D-Dimer 640 NG/ML 02/15/20 19:26 Sodium 136 mmol/L (135-145) 02/17/20 05:25 Potassium 4.1 mmol/l (3.3-5.1) 02/17/20 05:25 Chloride 98 mmol/L (96-108) 02/17/20 05:25 Carbon Dioxide 32 mmol/L (22-29) H 02/17/20 05:25 Anion Gap 10 (12-20) L 02/17/20 05:25 BUN 13 mg/dL (9-16) 02/17/20 05:25 Creatinine 1.69 mg/dL (0.5-1.4) H 02/17/20 05:25 Estim Creat Clear Calc 61.9 02/17/20 05:25 Estimated GFR 44 02/17/20 05:25 Random Glucose 84 mg/dL (60-115) 02/17/20 05:25 Lactic Acid 0.9 mmol/L (0.5-2.0) 02/15/20 21:05 Calcium 8.4 mg/dL (8.4-10.2) 02/17/20 05:25 Total Bilirubin 0.4 mg/dL (0.0-1.0) 02/15/20 19:26 Direct Bilirubin < 0.2 mg/dL (0.0-0.5) 02/15/20 19:26 AST 16 U/L (5-37) 02/15/20 19:26 ALT 28 U/L (0-40) 02/15/20 19:26 Alkaline Phosphatase 37 U/L (39-117) L 02/15/20 19:26 Troponin I High Sens 4.4 ng/L (<3.5-35.0) 02/15/20 23:43 Total Protein 7.8 g/dL (6.5-8.0) 02/15/20 19:26 Albumin 4.1 g/dL (3.5-5.0) 02/15/20 19:26 Urine Color YELLOW 02/15/20 19:26 Urine Appearance CLEAR 02/15/20 19:26 Urine pH 5.5 (5.0-8.0) 02/15/20 19:26 Ur Specific [place] 1.025 (1.005-1.025) 02/15/20 19:26 Urine Protein NEG MG/DL (NEG-TRACE) 02/15/20 19:26 Urine Glucose (UA) NEG MG/DL (NEG) 02/15/20 19:26 Urine Ketones NEG MG/DL (NEG) 02/15/20 19:26 Urine Blood 1+ (NEG) H 02/15/20 19:26 Urine Nitrite NEG (NEG) 02/15/20 19:26 Ur Leukocyte Esterase NEG (NEG) 02/15/20 19:26 Urine RBC 0-2 /HPF (0) 02/15/20 19:26 Urine WBC 0 /HPF (0-4) 02/15/20 19:26 Ur Squamous Epith Cells NONE /LPF 02/15/20 19:26 Urine Bacteria NONE /LPF 02/15/20 19:26 Random Vancomycin 21.6 mcg/mL (15-20) H 02/19/20 08:00 Coronavirus (PCR) NEGATIVE (Negative) 02/15/20 19:26 Influenza Type A (PCR) NEGATIVE (Negative) 02/15/20 19:26 Influenza Type B (PCR) NEGATIVE (Negative) 02/15/20 19:26 RSV RNA Qual (PCR) NEGATIVE (Negative) 02/15/20 19:26 Preliminary micro results at discharge 02/17/20 10:42 Blood Culture - Preliminary Blood - Venous No growth after 24 hours. 02/17/20 10:42 Blood Culture - Preliminary Blood - Venous No growth after 24 hours. 02/15/20 21:05 Blood Culture - Preliminary Blood - Venous No growth after 48 hours. 02/15/20 21:05 Blood Culture - Preliminary Blood - Venous Coag negative Staphylococcus Discharge Plan Discharge Patient Disposition: Home Health Service Referrals: [facility] [Outside] Ricco Echevarria MD [Physician] - 1 Week Daniel Cisneros MD [Physician] - 1 Week (TELE VISIT 03/03/[address] @ [address] Dr. Cisneros will call you to discuss your hospital stay.) Discharge Medications: New tamsulosin [Flomax] 0.4 mg capsule 0.4 mg PO DAILY Qty: 30 RF: 0 doxycycline hyclate 100 mg capsule 100 mg PO BID Qty: 10 RF: 0 Continued hydromorphone 2 mg Tablet 2 mg PO Q6H PRN (Reason: Pain (Scale Score 4-6)) RF: 0 benazepril 10 mg Tablet 10 mg PO DAILY RF: 0 sertraline 50 mg Tablet 50 mg PO DAILY RF: 0 gabapentin 300 mg Capsule 300 mg PO BEDTIME RF: 0 atorvastatin 20 mg tablet 20 mg PO DAILY RF: 0 amlodipine 10 mg tablet 10 mg PO DAILY RF: 0 aspirin [Adult Low Dose Aspirin] 81 mg tablet,delayed release (DR/EC) 81 mg PO DAILY RF: 0 omeprazole 20 mg capsule,delayed release(DR/EC) 20 mg PO DAILY RF: 0 docusate sodium 100 mg capsule 100 mg PO DAILY RF: 0 metoprolol tartrate 50 mg tablet 50 mg PO TID RF: 0 cyclobenzaprine 10 mg tablet 10 mg PO BEDTIME RF: 0 dicyclomine 20 mg tablet 20 mg PO TID RF: 0 baclofen 10 mg tablet 10 mg PO TID RF: 0 Discharge Orders: Discharge Order (Routine); Ordered 02/19/20 Ordered By: Noelle Morris Diet: advance to usual diet Activity on Discharge: No heavy lifting Discharge Date/Time: 02/19/20 11:00 Visit Report Forms: Patient Portal Discharge page Care Plan Goals: Return to baseline health and activity. Health Concerns: Abdominal wall collection, s/p colostomy closure; hypertension. Plan of Treatment: S/p US guided drainage, antibiotics.
== END 2020-02-19 11:00 | disposition home health service (06) | DRG 248 ==
LOC: HO.ED 18:32 → HO.IMC 02-16 00:50
PROVIDERS: Internal Medicine; Physician Assistant; Physician Assistant Surgical; Admitting Provider Surgery; Emergency Provider Internal Medicine; Visit Provider Surgery
DX: K65.1 Peritoneal abscess (principal); G62.9 Polyneuropathy, unspecified; M93.98 Osteochondropathy, unspecified other; E78.5 Hyperlipidemia, unspecified; F41.9 Anxiety disorder, unspecified; K21.9 Gastro-esophageal reflux disease without esophagitis; I10 Essential (primary) hypertension; N40.0 Benign prostatic hyperplasia without lower urinary tract symptoms; Z20.828 Contact with and (suspected) exposure to other viral communicable diseases; Z88.5 Allergy status to narcotic agent; Z79.82 Long term (current) use of aspirin; Z79.899 Other long term (current) drug therapy
CPT/HCPCS: 0241U; 36415; 49406; 71045; 71275; 74177; 80048; 80076; 80202; 81001; 83605; 84484; 85025; 85027; 85379; 85610; 85730; 87040; 87071; 87147; 87205; 93005; 96361; 96365; 96375; 99285; J1170; J2405; J2543; J3370; Q9967

== ENCOUNTER → 2020-03-01 13:52 | Outpatient (BNVA) | payer OTHER, SELFPAY | PROVIDERS: PCP Internal Medicine; Visit Provider Surgery | DX: L02.211 Cutaneous abscess of abdominal wall (principal); S30.1XXA Contusion of abdominal wall, initial encounter; X58.XXXA Exposure to other specified factors, initial encounter; Y93.9 Activity, unspecified; Y92.9 Unspecified place or not applicable; Y99.8 Other external cause status; K57.32 Diverticulitis of large intestine without perforation or abscess without bleeding; Z98.890 Other specified postprocedural states | CPT/HCPCS: 99212 ==

== ENCOUNTER → 2020-03-24 09:18 | Outpatient (BNVA) | payer OTHER, SELFPAY | PROVIDERS: PCP Internal Medicine; Visit Provider Surgery | DX: R10.9 Unspecified abdominal pain (principal); Z98.890 Other specified postprocedural states | CPT/HCPCS: 99212 ==

== ENCOUNTER 2020-03-28 16:42 | Outpatient (REF) | payer OTHER, SELFPAY ==
--- NOTE | 2020-03-28 16:37 | CT_ITS ---
EXAMINATION: CT ABDOMEN AND PELVIS WITHOUT CONTRAST CLINICAL INFORMATION: Status post colostomy reversal COMPARISON: CT abdomen pelvis 02/15/2020 TECHNIQUE: Multidetector volumetric imaging was performed from the superior aspect of the liver through the pubic symphysis. Sagittal and coronal reformatted images were obtained on the technologist's workstation. This CT examination was performed using dose optimization techniques as appropriate, variously including the following: *Automated exposure control *Adjustment of mA and/or kV according to patient size (this includes techniques or standardized protocols for targeted exams where dose is matched to indication/reason for exam; i.e. extremities or head) *Use of iterative reconstruction technique DLP: 841 mGy-cm FINDINGS: LUNG BASES: The visualized lung bases are unremarkable. Status post median sternotomy for mitral valve repair. LIVER, GALLBLADDER, AND BILIARY TREE: The liver is normal in size, shape, and attenuation. No focal hepatic lesion or biliary ductal dilatation is present. The gallbladder is unremarkable with no evidence of radiopaque gallstones, gallbladder wall thickening, or obvious pericholecystic inflammatory changes. PANCREAS: Unremarkable. SPLEEN: Unremarkable. ADRENAL GLANDS: Unremarkable. KIDNEYS AND URETERS: There are a few stones measuring 1 to 2 mm in the kidneys. There are 2 stones in the right kidney and one in the left kidney there is no ureteral stone. There is no hydronephrosis. BLADDER: Unremarkable. GASTROINTESTINAL TRACT: Status post partial sigmoidectomy. Surgical suture line at the mid sigmoid intact. There are a few diverticula of the descending colon and proximal sigmoid colon. There is no diverticulitis. No bowel obstruction. No bowel wall thickening or edema. Moderate volume of stool in the colon. The appendix is normal. ABDOMINAL WALL: Postsurgical scar left anterior abdominal wall. No ventral wall hernia. No inflammation, fluid collection or abscess. The fluid collection at the anterior abdominal wall present on the prior CAT scan 02/15/2020 has resolved. LYMPH NODES: Normal. VASCULAR: Unremarkable. PELVIC VISCERA: Unremarkable. OSSEOUS STRUCTURES: Unremarkable. CT/CT abdomen pelvis wo con IMPRESSION: No acute abnormality CT scan abdomen pelvis.
== END 2020-03-28 16:43 | disposition home or self-care (01) ==
LOC: HO.CT 16:42
PROVIDERS: PCP Internal Medicine; Visit Provider Surgery
DX: K57.20 Diverticulitis of large intestine with perforation and abscess without bleeding (principal); R33.9 Retention of urine, unspecified
CPT/HCPCS: 74176

== ENCOUNTER → 2020-03-29 13:00 | Outpatient (BNVA) | payer OTHER, SELFPAY | PROVIDERS: PCP Internal Medicine; Visit Provider Surgery | DX: S30.1XXA Contusion of abdominal wall, initial encounter (principal); Z98.890 Other specified postprocedural states | CPT/HCPCS: 99212 ==

== ENCOUNTER 2020-06-08 07:38 | Emergency (ER) | payer OTHER, SELFPAY ==
--- NOTE | ~2020-06-08 | CT_ITS ---
EXAMINATION: CT CHEST WITHOUT CONTRAST CLINICAL INFORMATION: Cough, fever COMPARISON: Chest radiograph 06/08/2020, CTA chest 02/15/2020 TECHNIQUE: Multidetector volumetric CT imaging of the chest was done. Axial MIP volume rendering provided. Sagittal and coronal reformatted images were obtained. No intravenous contrast. This CT examination was performed using dose optimization techniques as appropriate, variously including the following: *Automated exposure control *Adjustment of mA and/or kV according to patient size (this includes techniques or standardized protocols for targeted exams where dose is matched to indication/reason for exam; i.e. extremities or head) *Use of iterative reconstruction technique DLP: 370 mGy-cm FINDINGS: LUNGS: The central airways are clear and there is no endobronchial lesion or bronchiectasis. There is no airspace consolidation or groundglass opacity. No pneumothorax or pneumomediastinum. Incidental punctate calcified granuloma present right lower lobe, series 6/263 and anterior left upper lobe, series 6/161. MEDIASTINUM: Heart size normal. No pericardial effusion. Prior mitral valve replacement. Thoracic aorta normal in caliber. No hilar or mediastinal adenopathy. There may be common origin of the right brachiocephalic and left common carotid arteries. PLEURA: There is no pleural effusion. No pleural mass or thickening. AXILLA: No lymphadenopathy. UPPER ABDOMEN: Unremarkable. CT abdomen and pelvis described in separate report. OSSEOUS STRUCTURES: No acute bony abnormality. Prior median sternotomy. Probable old healed fracture left scapula body. CT/CT chest wo con IMPRESSION: No airspace consolidation or groundglass opacity or effusion. No adenopathy.
--- NOTE | ~2020-06-08 | CT_ITS ---
EXAMINATION: CT ABDOMEN AND PELVIS WITHOUT CONTRAST CLINICAL INFORMATION: Fever. COMPARISON: CT abdomen and pelvis without contrast 03/28/2020. TECHNIQUE: Multidetector volumetric imaging was performed from the superior aspect of the liver through the pubic symphysis. Sagittal and coronal reformatted images were obtained on the technologist's workstation. This CT examination was performed using dose optimization techniques as appropriate, variously including the following: *Automated exposure control *Adjustment of mA and/or kV according to patient size (this includes techniques or standardized protocols for targeted exams where dose is matched to indication/reason for exam; i.e. extremities or head) *Use of iterative reconstruction technique DLP: 1275 mGy-cm FINDINGS: LUNG BASES: The heart size is normal. The lung bases are clear. There is a mitral valve prosthesis in place. LIVER, GALLBLADDER, AND BILIARY TREE: The liver is enlarged but otherwise normal size and shape. There is normal attenuation. No focal lesion or intrahepatic ductal dilatation seen. Liver measures 20 cm in length. The gallbladder is unremarkable with no evidence of radiopaque gallstones, gallbladder wall thickening, or obvious pericholecystic inflammatory changes. PANCREAS: Unremarkable. SPLEEN: Unremarkable. ADRENAL GLANDS: Unremarkable. KIDNEYS AND URETERS: The kidneys are normal in size, shape, and attenuation. There are punctate radiopaque 2 mm calculi lower pole left kidney and upper and midpole right kidney. No caliectasis or hydronephrosis seen. BLADDER: Unremarkable. GASTROINTESTINAL TRACT: There is scattered stool and gas seen throughout the colon without distention. There are annular sutures in the sigmoid colon with a patent anastomosis. A few scattered diverticuli are seen in colon without any diverticulitis. There is no obstruction or free air. The appendix is normal caliber. ABDOMINAL WALL: There are postsurgical changes anterior abdominal wall. No evidence of hernia. LYMPH NODES: Normal. VASCULAR: Unremarkable. PELVIC VISCERA: There is no free air free fluid. No abnormal lymph nodes. OSSEOUS STRUCTURES: Unremarkable. CT/CT abdomen pelvis wo con IMPRESSION: No acute intra-abdominal process seen. Scattered colonic diverticulosis. An anastomotic suture line along the sigmoid colon is widely patent. Scattered nonobstructive tiny radiopaque renal calculi.
--- NOTE | ~2020-06-08 | XR_ITS ---
EXAMINATION: XR CHEST CLINICAL INFORMATION: Cough, shortness of breath, fever COMPARISON: Radiographs chest 02/15/2020, 07/16/2018 TECHNIQUE: Portable upright AP x2 views of the chest was obtained. FINDINGS: There is some mild coarsening of the bronchiolar markings but no hyperinflation, airspace consolidation, effusion, or groundglass opacity. There is been prior median sternotomy with mitral valve replacement. The cardiac and hilar and mediastinal contours are stable. The vascularity is normal. The costophrenic sulci are clear. XR/XR chest 1V IMPRESSION: Mild coarsening bronchiolar markings. No hyperinflation, airspace consolidation, or groundglass opacity.
[2020-06-08 07:56] VITALS: BP 182/102; PULSE 117; RESP 14; TEMP 37.2; O2SAT 98; BMI 37.4
--- NOTE | 2020-06-08 08:00 | PC.NURSE ---
pt reports sudden onset of headache, myalgias, vomiting this morning at 4a. recent history of ?scabies, has scratch alaniz on torso and extremities. has been treated.
[2020-06-08 08:04] VITALS: BP 182/102; PULSE 117; RESP 14; TEMP 37.2; O2SAT 98
--- NOTE | 2020-06-08 09:58 | ED.GENADULT ---
HPI - General Adult General Chief complaint: General Medical <Miles Jung NP - Last Filed: 06/08/20 16:50> Stated complaint: covid symptoms, allergic reaction <ODETTE Haney Last Filed: 06/08/20 16:50> Time Seen by Provider: 06/08/20 09:01 <Miles Jung NP - Last Filed: 06/08/20 16:50> Source: patient <Miles Jung NP - Last Filed: 06/08/20 16:50> Mode of arrival: ambulatory <ODETTE Haney Last Filed: 06/08/20 16:50> Limitations: no limitations <ODETTE Haney Last Filed: 06/08/20 16:50> History of Present Illness HPI narrative: 49-year-old male with a past medical history of high cholesterol, hypertension, anxiety, CKD, h/o cdiff 12/17/19 (subsequently tested negative) GERD, with perforation status post colectomy with Ammy procedure status post closure of colostomy here with multiple complaints. The patient tells me that at 04:00 he woke up with body aches, chills, subjective fevers, vomiting, diarrhea, generalized abdominal pain, bilateral ear pain and sore throat. He is also complaining of a cough with no shortness of breath or chest pain. Four episodes of vomiting which is NBNB. Two episodes of diarrhea which is normal color. <ODETTE Haney Last Filed: 06/08/20 16:50> Related Data Home medications: Home Medications Medication Instructions Recorded Confirmed amlodipine 10 mg tablet 10 mg PO DAILY 12/28/19 03/24/20 aspirin 81 mg tablet,delayed 81 mg PO DAILY 12/28/19 03/24/20 release atorvastatin 20 mg tablet 20 mg PO DAILY 12/28/19 03/24/20 baclofen 10 mg tablet 10 mg PO TID 12/28/19 03/24/20 cyclobenzaprine 10 mg tablet 10 mg PO BEDTIME 12/28/19 03/24/20 dicyclomine 20 mg tablet 20 mg PO TID 12/28/19 03/24/20 docusate sodium 100 mg capsule 100 mg PO DAILY 12/28/19 03/24/20 metoprolol tartrate 50 mg tablet 50 mg PO TID 12/28/19 03/24/20 omeprazole 20 mg capsule,delayed 20 mg PO DAILY 12/28/19 03/24/20 release gabapentin 300 mg PO BEDTIME 01/07/20 03/24/20 benazepril 10 mg PO DAILY 02/16/20 03/24/20 hydromorphone 2 mg PO Q6H PRN 02/16/20 03/24/20 sertraline 50 mg PO DAILY 02/16/20 03/24/20 Previous Rx's Medication Instructions Recorded doxycycline hyclate 100 mg PO BID #10 cap 02/18/20 tamsulosin 0.4 mg capsule 0.4 mg PO DAILY #30 cap 03/24/20 ondansetron 4 mg PO Q6H PRN #10 tab 06/08/20 <Miles Jung NP - Last Filed: 06/08/20 16:50> Allergies/adverse reactions: Allergies Allergy/AdvReac Type Severity Reaction Status Date / Time morphine [MORPHINE] Allergy Unknown HIVES, rash Verified 02/15/20 16:27 <Miles Jung NP - Last Filed: 06/08/20 16:50> Review of Systems Review of Systems: Yes all other systems are reviewed and are negative <ODETTE Haney Last Filed: 06/08/20 16:50> Constitutional: Constitutional: Reports no additional constitutional complaints, Reports body ache(s), Reports chills, Reports fever(s), Reports headache(s), Reports malaise and Denies weakness <Miles Jung NP - Last Filed: 06/08/20 16:50> Eyes: Eyes: Reports no additional eye complaints and Denies change in vision <Miles Jung NP - Last Filed: 06/08/20 16:50> ENT: Reports system reviewed and no additional complaints, except as documented, Denies dizziness, Reports otalgia, Reports headache(s), Denies nasal congestion, Denies nasal discharge, Denies neck pain and Reports sore throat <ODETTE Haney Last Filed: 06/08/20 16:50> Cardiovascular: Cardiovascular: Reports no additional cardiovascular complaints, Denies chest pain, Denies leg edema and Denies dyspnea <Miles Jung NP - Last Filed: 06/08/20 16:50> Respiratory: Respiratory: Reports no additional respiratory complaints, Reports cough and Denies dyspnea <Miles Jung NP - Last Filed: 06/08/20 16:50> Gastrointestinal: Gastrointestinal: Reports no additional gastrointestinal complaints, Reports abdominal pain, Reports diarrhea, Reports nausea and Reports vomiting <Miles Jung NP - Last Filed: 06/08/20 16:50> Genitourinary: Genitourinary: Denies urinary incontinence <Miles Jung NP - Last Filed: 06/08/20 16:50> Musculoskeletal: Musculoskeletal: Reports no additional musculoskeletal complaints, Denies back pain, Denies arthralgias, Denies joint swelling, Denies neck pain, Denies numbness and Denies tingling <Miles Jung NP - Last Filed: 06/08/20 16:50> Integumentary/Breasts: Skin/Breast: Reports system reviewed and no additional complaints, except as docu and Denies rash <Miles Jung NP - Last Filed: 06/08/20 16:50> Neurologic: Reports system reviewed and no additional complaints, except as documented, Denies Abnormal speech present, Denies dizziness, Reports headache(s), Denies numbness, Denies tingling and Denies weakness <Miles Jung NP - Last Filed: 06/08/20 16:50> PMFSH Past Medical History Attestation statement: The following information was validated with the patient. <Miles Jung NP - Last Filed: 06/08/20 16:50> Source: old records reviewed and nursing notes reviewed <Miles Jung NP - Last Filed: 06/08/20 16:50> Medical History: Medical History Anxiety Constipation GERD (gastroesophageal reflux disease) History of diverticulitis Hyperlipidemia Hypertension Mitral valve disease Right ankle pain <Miles Jung NP - Last Filed: 06/08/20 16:50> Surgical History: Surgical History H/O mitral valve repair Status post Ammy procedure (10/21/19) <Miles Jung NP - Last Filed: 06/08/20 16:50> Family History Family History: Family History Mother No problems noted. Father No problems noted. <Miles Jung NP - Last Filed: 06/08/20 16:50> Social History Social History: Social History Household Members: Significant Other Housing: Apartment Alcohol intake: never Smoking Status: Never smoker Second Hand Smoke Exposure: No Use of substances other than those prescribed or required for medical reasons: No Substance Use Type: Marijuana Advance Directives: Yes Advance Directives Information Provided: Yes Advance Directives on File: No service: No Current occupational status: unemployed <Miles Jung NP - Last Filed: 06/08/20 16:50> Physical Exam Vital Signs: Vital Signs: Last Vital Signs Temp 98.1 F 06/08/20 13:28 Pulse 86 06/08/20 15:02 Resp 14 06/08/20 15:02 BP 169/96 H 06/08/20 15:02 Pulse Ox 95 06/08/20 15:02 Body Mass Index 37.4 <Miles Jung NP - Last Filed: 06/08/20 16:50> Vital Signs: Last Vital Signs Temp 98.1 F 06/08/20 13:28 Pulse 86 06/08/20 15:02 Resp 14 06/08/20 15:02 BP 169/96 H 06/08/20 15:02 Pulse Ox 95 06/08/20 15:02 Body Mass Index 37.4 <Sonu Celis MD - Last Filed: 06/08/20 16:21> Const: General: cooperative, healthy appearing, comfortable and no acute distress <Miles Jung NP - Last Filed: 06/08/20 16:50> Orientation/consciousness: patient oriented x3 <Miles Jung NP - Last Filed: 06/08/20 16:50> Limitations: no limitations <Miles Jung NP - Last Filed: 06/08/20 16:50> HENMT: Head: Yes normal to inspection <Miles Jung NP - Last Filed: 06/08/20 16:50> Ears: hearing grossly normal bilaterally <Miles Jung NP - Last Filed: 06/08/20 16:50> General nose exam: Normal external nose present <Miles Jung NP - Last Filed: 06/08/20 16:50> Face and sinus: Yes normal facial exam <Miles Jung NP - Last Filed: 06/08/20 16:50> Mouth: Normal oral and palatal mucosa present <Miles Jung NP - Last Filed: 06/08/20 16:50> Throat: Yes uvula midline and Yes abnormal tonsil (Bilateral tonsillar swelling and erythema with no exudate or mass) <Miles Jung NP - Last Filed: 06/08/20 16:50> Eyes: General: appearance normal, both eyes and all related structures <Miles Jung NP - Last Filed: 06/08/20 16:50> Pupils: Equal, round and reactive pupils present <Miles Jung NP - Last Filed: 06/08/20 16:50> Neck: Neck: Yes normal visual inspection, Yes full ROM, Yes no lymphadenopathy and Yes no meningeal signs <Miles Jung NP - Last Filed: 06/08/20 16:50> Chest: Chest palpation & inspection: normal inspection of the chest <Miles Jung NP - Last Filed: 06/08/20 16:50> Resp: Effort & Inspection: normal respiratory effort <Miles Jung NP - Last Filed: 06/08/20 16:50> Auscultation: clear to auscultation bilaterally <Miles Jung NP - Last Filed: 06/08/20 16:50> Cardio: Rate: tachycardic <Miles Jung NP - Last Filed: 06/08/20 16:50> Rhythm: regular rhythm <Miles Jung MACHINE ICER - Last Filed: 06/08/20 16:50> Peripheral pulses: Peripheral pulses 2+ throughout <Miles Jung MACHINE ICER - Last Filed: 06/08/20 16:50> GI: Inspection: Yes normal to inspection <Miles Jung MACHINE ICER - Last Filed: 06/08/20 16:50> Palpation (GI): Soft to palpation and Tenderness to palpation present (GI) (Mild diffuse tenderness with no rebound or guarding) <Miles Jung MACHINE ICER - Last Filed: 06/08/20 16:50> Auscultation: normal bowel sounds <Miles Jung NP - Last Filed: 06/08/20 16:50> Back/Spine/Pelvis: Thoracic/Lumbar Spine: thoracic and lumbar spine normal to inspection <Miles Jung MACHINE ICER - Last Filed: 06/08/20 16:50> Skin: General skin exam: no rashes or lesions noted <Miles Jung MACHINE ICER - Last Filed: 06/08/20 16:50> Neuro: General: patient oriented x3, no meningeal signs, no focal motor deficits and normal sensation to monofilament <Miles Jung MACHINE ICER - Last Filed: 06/08/20 16:50> Cranial nerves: Yes Equal, round and reactive pupils present <Miles Jung MACHINE ICER - Last Filed: 06/08/20 16:50> Cognition (Neuro): normal cognition <Miles Jung MACHINE ICER - Last Filed: 06/08/20 16:50> Speech: No Abnormal speech present <Miles Jung MACHINE ICER - Last Filed: 06/08/20 16:50> Gait exam (Neuro): Normal gait present <Miles Jung NP - Last Filed: 06/08/20 16:50> Motor exam (neuro): 5/5 motor strength present throughout <Miles Jung MACHINE ICER - Last Filed: 06/08/20 16:50> Extrem: General: Yes normal to inspection <Miles Jung MACHINE ICER - Last Filed: 06/08/20 16:50> Course Course Course Narrative: 49-year-old male here with multiple complaints of bilateral earache, sore throat, cough, abdominal discomfort, vomiting, diarrhea, subjective fevers, chills, body aches since 04:00. Patient reports multiple episodes of vomiting unable to maintain p.o.. He is tachycardic on arrival with a rate of 120, tacky mucous membranes. Nahid need labs including blood cultures, lactic acid, chest x-ray, COVID screen, throat culture. Will give normal saline bolus, antiemetic and reassess. 1600-labs are significant for leukocytosis with shift. Renal function at baseline. Rapid strep negative. Throat culture pending. COVID and respiratory panel negative. CT chest and abdomen unremarkable. Urine negative for infection. Patient has had a max temp of 99.8 degrees here. Tachycardia improved with IV fluid. Unclear source of elevated WBC. Patient did report diarrhea at home but has been here for 9 hours with no reports of diarrhea. No recent antibiotic use, travel, admission to the hospital. Consider C diff but less likely with so infrequent episodes of diarrhea. Will give labs for stool studies. Could also be COVID but testing ? to soon. Recommended for patient to get retested if he continues to have symptoms. Considered meningitis/encephalitis however patient is alert and oriented, low-grade temp, no meningeal signs, no risk factors (immunocompromise, IV drug user). Discussed patient with Dr. Celis who evaluated the patient and he concurs that patient is well appearing, non-toxic at this time will hold on additional testing (LP). Reviewed findings with patient. Recommended following up with his primary care doctor. Reviewed worrisome signs and symptoms (severe BRIGGS, neck pain or rigidity, 2 or more vomiting episodes). Comfortable with discharge home. <Miles Jung NP - Last Filed: 06/08/20 16:50> I agree with the history. My physical exam is well developed well nourished, normal cephalic, PERRL, EOMI, normal pharynx, supple neck, lungs clear, CV RRR, abdomen nontender, Neuro intact and nonfocal, psychiatric at baseline. Will dc on zofran, tylenol and fluids. No obvious source of WBC of 24K. Patient to follow up with PMD <Sonu Celis MD - Last Filed: 06/08/20 16:21> Medical Decision Making MDM Narrative Medical decision making narrative: Viral syndrome, pneumonia, UTI, intra-abdominal abscess <Miles Jung NP - Last Filed: 06/08/20 16:50> Medical Records Medical records reviewed: Yes I reviewed the patient's medical records. <Miles Jung NP - Last Filed: 06/08/20 16:50> Lab Data Lab results reviewed: Yes I reviewed the patient's lab results. <Miles Jung NP - Last Filed: 06/08/20 16:50> Result diagrams: : 06/08/20 10:35 06/08/20 10:35 <Miles Jung NP - Last Filed: 06/08/20 16:50> Labs: Lab Results 06/08/20 06/08/20 06/08/20 Range/Units 10:10 10:35 10:35 WBC 23.8 H (4.8-10.8) X10*3/uL RBC 6.08 H D (4.60-5.80) X10*6/uL Hgb 16.5 D (14.0-18.0) g/dl Hct 51.8 D (42-52) % MCV 85.2 (80-98) fL MCH 27.1 (27.0-33.0) pg MCHC 31.9 (31.0-36.0) g/dl RDW 16.5 H (11.0-16.0) % Plt Count 269 (160-400) X10*3/uL MPV 12.7 H (9.4-12.4) fL Immature Gran % (Auto) 0.5 H (0.0-0.4) % Neut % (Auto) 88.1 H (45-73) % Lymph % (Auto) 5.8 L (20-40) % [place] % (Auto) 5.2 (2-11) % Eos % (Auto) 0.1 (0-4) % Baso % (Auto) 0.3 (0-2) % Lymph # (Auto) 1.4 (1.2-4.9) X10*3/uL [place] # (Auto) 1.3 H (0.1-1.2) X10*3/uL Eos # (Auto) 0.0 (0.0-0.4) X10*3/uL Baso # (Auto) 0.1 (0.0-0.2) X10*3/uL Abs Immat Gran (auto) 0.13 H (0.00-0.03) X10*3/uL Absolute Neuts (auto) 21.0 H (2.0-8.3) X10*3/uL Absolute Nucleated RBC 0.000 (0.0-0.012) X10*3/uL Nucleated RBC % (auto) 0.0 (0.0-0.2) /100WBC Smear Tech's Comments VERIFIED PT (10.8-13.0) SEC INR (0.9-1.1) APTT Sodium (135-145) mmol/L Potassium (3.3-5.1) mmol/L Chloride (96-108) mmol/L Carbon Dioxide (22-29) mmol/L Anion Gap (12-20) BUN (9-16) mg/dL Creatinine (0.5-1.4) mg/dL Estim Creat Clear Calc Estimated GFR Random Glucose (60-115) mg/dL Lactic Acid (0.5-2.0) mmol/L Calcium (8.4-10.2) mg/dL Magnesium (1.6-2.6) mg/dL Total Bilirubin (0.0-1.0) mg/dL Direct Bilirubin (0.0-0.5) mg/dL AST (5-37) U/L ALT (0-40) U/L Alkaline Phosphatase (39-117) U/L Total Protein (6.5-8.0) g/dL Albumin (3.5-5.0) g/dL Urine Color YELLOW Urine Appearance CLEAR Urine pH 5.5 (5.0-8.0) Ur Specific [place] 1.025 (1.005-1.025) Urine Protein NEG (NEG-TRACE) MG/DL Urine Glucose (UA) NEG (NEG) MG/DL Urine Ketones NEG (NEG) MG/DL Urine Blood 1+ H (NEG) Urine Nitrite NEG (NEG) Ur Leukocyte Esterase NEG (NEG) Urine RBC 0-2 (0) /HPF Urine WBC 0-2 (0-4) /HPF Ur Squamous Epith Cells 1+ /LPF Urine Bacteria NONE /LPF Respiratory Panel [place] Adenovirus (Rapid PCR) (Not Detect.) B.pert (TEM-PCR) (Not Detect.) B.parapertussis DNA PCR (Not Detect.) C. pneumoniae DNA (PCR) (Not Detect.) Coronavirus OC43 (PCR) (Not Detect.) Coronavirus HKU1 (PCR) (Not Detect.) Coronavirus 229E (PCR) (Not Detect.) COVID-19 (CLAIRE) Negative (Negative) COVID-19 Clin Com See Note Coronavirus NL63 (PCR) (Not Detect.) Human Metapneumovir PCR (Not Detect.) Influenza A (RT-PCR) (Not Detect.) Influenza B (RT-PCR) (Not Detect.) M. pneumoniae (PCR) (Not Detect.) Parainfluenza 1 (PCR) (Not Detect.) Parainfluenza 2 (PCR) (Not Detect.) Parainfluenza 3 (PCR) (Not Detect.) Parainfluenza 4 (PCR) (Not Detect.) RSV (PCR) (Not Detect.) Entero/Rhino (PCR) (Not Detect.) SARS-CoV-2 RNA (RT-PCR) (Not Detect.) 06/08/20 06/08/20 06/08/20 Range/Units 10:35 10:35 10:35 WBC (4.8-10.8) X10*3/uL RBC (4.60-5.80) X10*6/uL Hgb (14.0-18.0) g/dl Hct (42-52) % MCV (80-98) fL MCH (27.0-33.0) pg MCHC (31.0-36.0) g/dl RDW (11.0-16.0) % Plt Count (160-400) X10*3/uL MPV (9.4-12.4) fL Immature Gran % (Auto) (0.0-0.4) % Neut % (Auto) (45-73) % Lymph % (Auto) (20-40) % [place] % (Auto) (2-11) % Eos % (Auto) (0-4) % Baso % (Auto) (0-2) % Lymph # (Auto) (1.2-4.9) X10*3/uL [place] # (Auto) (0.1-1.2) X10*3/uL Eos # (Auto) (0.0-0.4) X10*3/uL Baso # (Auto) (0.0-0.2) X10*3/uL Abs Immat Gran (auto) (0.00-0.03) X10*3/uL Absolute Neuts (auto) (2.0-8.3) X10*3/uL Absolute Nucleated RBC (0.0-0.012) X10*3/uL Nucleated RBC % (auto) (0.0-0.2) /100WBC Smear Tech's Comments PT 13.8 H (10.8-13.0) SEC INR 1.2 H (0.9-1.1) APTT Cancelled Sodium 137 (135-145) mmol/L Potassium 4.6 (3.3-5.1) mmol/L Chloride 100 (96-108) mmol/L Carbon Dioxide 29 (22-29) mmol/L Anion Gap 13 (12-20) BUN 16 (9-16) mg/dL Creatinine 1.70 H (0.5-1.4) mg/dL Estim Creat Clear Calc 61.0 Estimated GFR 43 Random Glucose 92 (60-115) mg/dL Lactic Acid 1.7 (0.5-2.0) mmol/L Calcium 8.9 (8.4-10.2) mg/dL Magnesium 1.9 (1.6-2.6) mg/dL Total Bilirubin 0.7 (0.0-1.0) mg/dL Direct Bilirubin 0.2 (0.0-0.5) mg/dL AST 19 (5-37) U/L ALT 32 (0-40) U/L Alkaline Phosphatase 34 L (39-117) U/L Total Protein 7.7 (6.5-8.0) g/dL Albumin 4.2 (3.5-5.0) g/dL Urine Color Urine Appearance Urine pH (5.0-8.0) Ur Specific [place] (1.005-1.025) Urine Protein (NEG-TRACE) MG/DL Urine Glucose (UA) (NEG) MG/DL Urine Ketones (NEG) MG/DL Urine Blood (NEG) Urine Nitrite (NEG) Ur Leukocyte Esterase (NEG) Urine RBC (0) /HPF Urine WBC (0-4) /HPF Ur Squamous Epith Cells /LPF Urine Bacteria /LPF Respiratory Panel [place] Adenovirus (Rapid PCR) (Not Detect.) B.pert (TEM-PCR) (Not Detect.) B.parapertussis DNA PCR (Not Detect.) C. pneumoniae DNA (PCR) (Not Detect.) Coronavirus OC43 (PCR) (Not Detect.) Coronavirus HKU1 (PCR) (Not Detect.) Coronavirus 229E (PCR) (Not Detect.) COVID-19 (CLAIRE) (Negative) COVID-19 Clin Com Coronavirus NL63 (PCR) (Not Detect.) Human Metapneumovir PCR (Not Detect.) Influenza A (RT-PCR) (Not Detect.) Influenza B (RT-PCR) (Not Detect.) M. pneumoniae (PCR) (Not Detect.) Parainfluenza 1 (PCR) (Not Detect.) Parainfluenza 2 (PCR) (Not Detect.) Parainfluenza 3 (PCR) (Not Detect.) Parainfluenza 4 (PCR) (Not Detect.) RSV (PCR) (Not Detect.) Entero/Rhino (PCR) (Not Detect.) SARS-CoV-2 RNA (RT-PCR) (Not Detect.) 06/08/20 Range/Units 12:05 WBC (4.8-10.8) X10*3/uL RBC (4.60-5.80) X10*6/uL Hgb (14.0-18.0) g/dl Hct (42-52) % MCV (80-98) fL MCH (27.0-33.0) pg MCHC (31.0-36.0) g/dl RDW (11.0-16.0) % Plt Count (160-400) X10*3/uL MPV (9.4-12.4) fL Immature Gran % (Auto) (0.0-0.4) % Neut % (Auto) (45-73) % Lymph % (Auto) (20-40) % [place] % (Auto) (2-11) % Eos % (Auto) (0-4) % Baso % (Auto) (0-2) % Lymph # (Auto) (1.2-4.9) X10*3/uL [place] # (Auto) (0.1-1.2) X10*3/uL Eos # (Auto) (0.0-0.4) X10*3/uL Baso # (Auto) (0.0-0.2) X10*3/uL Abs Immat Gran (auto) (0.00-0.03) X10*3/uL Absolute Neuts (auto) (2.0-8.3) X10*3/uL Absolute Nucleated RBC (0.0-0.012) X10*3/uL Nucleated RBC % (auto) (0.0-0.2) /100WBC Smear Tech's Comments PT (10.8-13.0) SEC INR (0.9-1.1) APTT Sodium (135-145) mmol/L Potassium (3.3-5.1) mmol/L Chloride (96-108) mmol/L Carbon Dioxide (22-29) mmol/L Anion Gap (12-20) BUN (9-16) mg/dL Creatinine (0.5-1.4) mg/dL Estim Creat Clear Calc Estimated GFR Random Glucose (60-115) mg/dL Lactic Acid (0.5-2.0) mmol/L Calcium (8.4-10.2) mg/dL Magnesium (1.6-2.6) mg/dL Total Bilirubin (0.0-1.0) mg/dL Direct Bilirubin (0.0-0.5) mg/dL AST (5-37) U/L ALT (0-40) U/L Alkaline Phosphatase (39-117) U/L Total Protein (6.5-8.0) g/dL Albumin (3.5-5.0) g/dL Urine Color Urine Appearance Urine pH (5.0-8.0) Ur Specific [place] (1.005-1.025) Urine Protein (NEG-TRACE) MG/DL Urine Glucose (UA) (NEG) MG/DL Urine Ketones (NEG) MG/DL Urine Blood (NEG) Urine Nitrite (NEG) Ur Leukocyte Esterase (NEG) Urine RBC (0) /HPF Urine WBC (0-4) /HPF Ur Squamous Epith Cells /LPF Urine Bacteria /LPF Respiratory Panel [place] See Note Adenovirus (Rapid PCR) Not Detected (Not Detect.) B.pert (TEM-PCR) Not Detected (Not Detect.) B.parapertussis DNA PCR Not Detected (Not Detect.) C. pneumoniae DNA (PCR) Not Detected (Not Detect.) Coronavirus OC43 (PCR) Not Detected (Not Detect.) Coronavirus HKU1 (PCR) Not Detected (Not Detect.) Coronavirus 229E (PCR) Not Detected (Not Detect.) COVID-19 (CLAIRE) (Negative) COVID-19 Clin Com Coronavirus NL63 (PCR) Not Detected (Not Detect.) Human Metapneumovir PCR Not Detected (Not Detect.) Influenza A (RT-PCR) Not Detected (Not Detect.) Influenza B (RT-PCR) Not Detected (Not Detect.) M. pneumoniae (PCR) Not Detected (Not Detect.) Parainfluenza 1 (PCR) Not Detected (Not Detect.) Parainfluenza 2 (PCR) Not Detected (Not Detect.) Parainfluenza 3 (PCR) Not Detected (Not Detect.) Parainfluenza 4 (PCR) Not Detected (Not Detect.) RSV (PCR) Not Detected (Not Detect.) Entero/Rhino (PCR) Not Detected (Not Detect.) SARS-CoV-2 RNA (RT-PCR) Not Detected (Not Detect.) <Miles Jung, ODETTE - Last Filed: 06/08/20 16:50> Lab Results 06/08/20 06/08/20 06/08/20 Range/Units 10:10 10:35 10:35 WBC 23.8 H (4.8-10.8) X10*3/uL RBC 6.08 H D (4.60-5.80) X10*6/uL Hgb 16.5 D (14.0-18.0) g/dl Hct 51.8 D (42-52) % MCV 85.2 (80-98) fL MCH 27.1 (27.0-33.0) pg MCHC 31.9 (31.0-36.0) g/dl RDW 16.5 H (11.0-16.0) % Plt Count 269 (160-400) X10*3/uL MPV 12.7 H (9.4-12.4) fL Immature Gran % (Auto) 0.5 H (0.0-0.4) % Neut % (Auto) 88.1 H (45-73) % Lymph % (Auto) 5.8 L (20-40) % [place] % (Auto) 5.2 (2-11) % Eos % (Auto) 0.1 (0-4) % Baso % (Auto) 0.3 (0-2) % Lymph # (Auto) 1.4 (1.2-4.9) X10*3/uL [place] # (Auto) 1.3 H (0.1-1.2) X10*3/uL Eos # (Auto) 0.0 (0.0-0.4) X10*3/uL Baso # (Auto) 0.1 (0.0-0.2) X10*3/uL Abs Immat Gran (auto) 0.13 H (0.00-0.03) X10*3/uL Absolute Neuts (auto) 21.0 H (2.0-8.3) X10*3/uL Absolute Nucleated RBC 0.000 (0.0-0.012) X10*3/uL Nucleated RBC % (auto) 0.0 (0.0-0.2) /100WBC Smear Tech's Comments VERIFIED PT (10.8-13.0) SEC INR (0.9-1.1) APTT Sodium (135-145) mmol/L Potassium (3.3-5.1) mmol/L Chloride (96-108) mmol/L Carbon Dioxide (22-29) mmol/L Anion Gap (12-20) BUN (9-16) mg/dL Creatinine (0.5-1.4) mg/dL Estim Creat Clear Calc Estimated GFR Random Glucose (60-115) mg/dL Lactic Acid (0.5-2.0) mmol/L Calcium (8.4-10.2) mg/dL Magnesium (1.6-2.6) mg/dL Total Bilirubin (0.0-1.0) mg/dL Direct Bilirubin (0.0-0.5) mg/dL AST (5-37) U/L ALT (0-40) U/L Alkaline Phosphatase (39-117) U/L Total Protein (6.5-8.0) g/dL Albumin (3.5-5.0) g/dL Urine Color YELLOW Urine Appearance CLEAR Urine pH 5.5 (5.0-8.0) Ur Specific [place] 1.025 (1.005-1.025) Urine Protein NEG (NEG-TRACE) MG/DL Urine Glucose (UA) NEG (NEG) MG/DL Urine Ketones NEG (NEG) MG/DL Urine Blood 1+ H (NEG) Urine Nitrite NEG (NEG) Ur Leukocyte Esterase NEG (NEG) Urine RBC 0-2 (0) /HPF Urine WBC 0-2 (0-4) /HPF Ur Squamous Epith Cells 1+ /LPF Urine Bacteria NONE /LPF Respiratory Panel [place] Adenovirus (Rapid PCR) (Not Detect.) B.pert (TEM-PCR) (Not Detect.) B.parapertussis DNA PCR (Not Detect.) C. pneumoniae DNA (PCR) (Not Detect.) Coronavirus OC43 (PCR) (Not Detect.) Coronavirus HKU1 (PCR) (Not Detect.) Coronavirus 229E (PCR) (Not Detect.) COVID-19 (CLAIRE) Negative (Negative) COVID-19 Clin Com See Note Coronavirus NL63 (PCR) (Not Detect.) Human Metapneumovir PCR (Not Detect.) Influenza A (RT-PCR) (Not Detect.) Influenza B (RT-PCR) (Not Detect.) M. pneumoniae (PCR) (Not Detect.) Parainfluenza 1 (PCR) (Not Detect.) Parainfluenza 2 (PCR) (Not Detect.) Parainfluenza 3 (PCR) (Not Detect.) Parainfluenza 4 (PCR) (Not Detect.) RSV (PCR) (Not Detect.) Entero/Rhino (PCR) (Not Detect.) SARS-CoV-2 RNA (RT-PCR) (Not Detect.) 06/08/20 06/08/20 06/08/20 Range/Units 10:35 10:35 10:35 WBC (4.8-10.8) X10*3/uL RBC (4.60-5.80) X10*6/uL Hgb (14.0-18.0) g/dl Hct (42-52) % MCV (80-98) fL MCH (27.0-33.0) pg MCHC (31.0-36.0) g/dl RDW (11.0-16.0) % Plt Count (160-400) X10*3/uL MPV (9.4-12.4) fL Immature Gran % (Auto) (0.0-0.4) % Neut % (Auto) (45-73) % Lymph % (Auto) (20-40) % [place] % (Auto) (2-11) % Eos % (Auto) (0-4) % Baso % (Auto) (0-2) % Lymph # (Auto) (1.2-4.9) X10*3/uL [place] # (Auto) (0.1-1.2) X10*3/uL Eos # (Auto) (0.0-0.4) X10*3/uL Baso # (Auto) (0.0-0.2) X10*3/uL Abs Immat Gran (auto) (0.00-0.03) X10*3/uL Absolute Neuts (auto) (2.0-8.3) X10*3/uL Absolute Nucleated RBC (0.0-0.012) X10*3/uL Nucleated RBC % (auto) (0.0-0.2) /100WBC Smear Tech's Comments PT 13.8 H (10.8-13.0) SEC INR 1.2 H (0.9-1.1) APTT Cancelled Sodium 137 (135-145) mmol/L Potassium 4.6 (3.3-5.1) mmol/L Chloride 100 (96-108) mmol/L Carbon Dioxide 29 (22-29) mmol/L Anion Gap 13 (12-20) BUN 16 (9-16) mg/dL Creatinine 1.70 H (0.5-1.4) mg/dL Estim Creat Clear Calc 61.0 Estimated GFR 43 Random Glucose 92 (60-115) mg/dL Lactic Acid 1.7 (0.5-2.0) mmol/L Calcium 8.9 (8.4-10.2) mg/dL Magnesium 1.9 (1.6-2.6) mg/dL Total Bilirubin 0.7 (0.0-1.0) mg/dL Direct Bilirubin 0.2 (0.0-0.5) mg/dL AST 19 (5-37) U/L ALT 32 (0-40) U/L Alkaline Phosphatase 34 L (39-117) U/L Total Protein 7.7 (6.5-8.0) g/dL Albumin 4.2 (3.5-5.0) g/dL Urine Color Urine Appearance Urine pH (5.0-8.0) Ur Specific [place] (1.005-1.025) Urine Protein (NEG-TRACE) MG/DL Urine Glucose (UA) (NEG) MG/DL Urine Ketones (NEG) MG/DL Urine Blood (NEG) Urine Nitrite (NEG) Ur Leukocyte Esterase (NEG) Urine RBC (0) /HPF Urine WBC (0-4) /HPF Ur Squamous Epith Cells /LPF Urine Bacteria /LPF Respiratory Panel [place] Adenovirus (Rapid PCR) (Not Detect.) B.pert (TEM-PCR) (Not Detect.) B.parapertussis DNA PCR (Not Detect.) C. pneumoniae DNA (PCR) (Not Detect.) Coronavirus OC43 (PCR) (Not Detect.) Coronavirus HKU1 (PCR) (Not Detect.) Coronavirus 229E (PCR) (Not Detect.) COVID-19 (CLAIRE) (Negative) COVID-19 Clin Com Coronavirus NL63 (PCR) (Not Detect.) Human Metapneumovir PCR (Not Detect.) Influenza A (RT-PCR) (Not Detect.) Influenza B (RT-PCR) (Not Detect.) M. pneumoniae (PCR) (Not Detect.) Parainfluenza 1 (PCR) (Not Detect.) Parainfluenza 2 (PCR) (Not Detect.) Parainfluenza 3 (PCR) (Not Detect.) Parainfluenza 4 (PCR) (Not Detect.) RSV (PCR) (Not Detect.) Entero/Rhino (PCR) (Not Detect.) SARS-CoV-2 RNA (RT-PCR) (Not Detect.) 06/08/20 Range/Units 12:05 WBC (4.8-10.8) X10*3/uL RBC (4.60-5.80) X10*6/uL Hgb (14.0-18.0) g/dl Hct (42-52) % MCV (80-98) fL MCH (27.0-33.0) pg MCHC (31.0-36.0) g/dl RDW (11.0-16.0) % Plt Count (160-400) X10*3/uL MPV (9.4-12.4) fL Immature Gran % (Auto) (0.0-0.4) % Neut % (Auto) (45-73) % Lymph % (Auto) (20-40) % [place] % (Auto) (2-11) % Eos % (Auto) (0-4) % Baso % (Auto) (0-2) % Lymph # (Auto) (1.2-4.9) X10*3/uL [place] # (Auto) (0.1-1.2) X10*3/uL Eos # (Auto) (0.0-0.4) X10*3/uL Baso # (Auto) (0.0-0.2) X10*3/uL Abs Immat Gran (auto) (0.00-0.03) X10*3/uL Absolute Neuts (auto) (2.0-8.3) X10*3/uL Absolute Nucleated RBC (0.0-0.012) X10*3/uL Nucleated RBC % (auto) (0.0-0.2) /100WBC Smear Tech's Comments PT (10.8-13.0) SEC INR (0.9-1.1) APTT Sodium (135-145) mmol/L Potassium (3.3-5.1) mmol/L Chloride (96-108) mmol/L Carbon Dioxide (22-29) mmol/L Anion Gap (12-20) BUN (9-16) mg/dL Creatinine (0.5-1.4) mg/dL Estim Creat Clear Calc Estimated GFR Random Glucose (60-115) mg/dL Lactic Acid (0.5-2.0) mmol/L Calcium (8.4-10.2) mg/dL Magnesium (1.6-2.6) mg/dL Total Bilirubin (0.0-1.0) mg/dL Direct Bilirubin (0.0-0.5) mg/dL AST (5-37) U/L ALT (0-40) U/L Alkaline Phosphatase (39-117) U/L Total Protein (6.5-8.0) g/dL Albumin (3.5-5.0) g/dL Urine Color Urine Appearance Urine pH (5.0-8.0) Ur Specific [place] (1.005-1.025) Urine Protein (NEG-TRACE) MG/DL Urine Glucose (UA) (NEG) MG/DL Urine Ketones (NEG) MG/DL Urine Blood (NEG) Urine Nitrite (NEG) Ur Leukocyte Esterase (NEG) Urine RBC (0) /HPF Urine WBC (0-4) /HPF Ur Squamous Epith Cells /LPF Urine Bacteria /LPF Respiratory Panel [place] See Note Adenovirus (Rapid PCR) Not Detected (Not Detect.) B.pert (TEM-PCR) Not Detected (Not Detect.) B.parapertussis DNA PCR Not Detected (Not Detect.) C. pneumoniae DNA (PCR) Not Detected (Not Detect.) Coronavirus OC43 (PCR) Not Detected (Not Detect.) Coronavirus HKU1 (PCR) Not Detected (Not Detect.) Coronavirus 229E (PCR) Not Detected (Not Detect.) COVID-19 (CLAIRE) (Negative) COVID-19 Clin Com Coronavirus NL63 (PCR) Not Detected (Not Detect.) Human Metapneumovir PCR Not Detected (Not Detect.) Influenza A (RT-PCR) Not Detected (Not Detect.) Influenza B (RT-PCR) Not Detected (Not Detect.) M. pneumoniae (PCR) Not Detected (Not Detect.) Parainfluenza 1 (PCR) Not Detected (Not Detect.) Parainfluenza 2 (PCR) Not Detected (Not Detect.) Parainfluenza 3 (PCR) Not Detected (Not Detect.) Parainfluenza 4 (PCR) Not Detected (Not Detect.) RSV (PCR) Not Detected (Not Detect.) Entero/Rhino (PCR) Not Detected (Not Detect.) SARS-CoV-2 RNA (RT-PCR) Not Detected (Not Detect.) <Sonu Celis MD - Last Filed: 06/08/20 16:21> Imaging Data Chest x-ray: Attestation: I personally reviewed and interpreted this imaging study as follows: <Miles Jung NP - Last Filed: 06/08/20 16:50> Radiologist's impression: [facility] [place], [place] [address]MKmg ReportSigned Patient: Kenan Treviño [facility]#: [id number]: 1970Acct:[id number]/Sex: 49 / MADM Date: 06/08/20Loc: HO.EDAttending Dr: Ordering Physician: MILES JUNG NP Date of Service: 06/08/20 Procedure(s): XR chest 1V Accession Number(s): [id number] cc: MILES JUNG NP~ EXAMINATION: XR CHEST CLINICAL INFORMATION: Cough, shortness of breath, fever COMPARISON: Radiographs chest 02/15/2020, 07/16/2018 TECHNIQUE: Portable upright AP x2 views of the chest was obtained. FINDINGS: There is some mild coarsening of the bronchiolar markings but no hyperinflation, airspace consolidation, effusion, or groundglass opacity. There is been prior median sternotomy with mitral valve replacement. The cardiac and hilar and mediastinal contours are stable. The vascularity is normal. The costophrenic sulci are clear. XR/XR chest 1V IMPRESSION: Mild coarsening bronchiolar markings. No hyperinflation, airspace consolidation, or groundglass opacity. <Miles Jung NP - Last Filed: 06/08/20 16:50> CT scan - chest: Attestation: I personally reviewed and interpreted this imaging study as follows: <Miles Jung NP - Last Filed: 06/08/20 16:50> Radiologist's impression: EXAMINATION: CT CHEST WITHOUT CONTRAST CLINICAL INFORMATION: Cough, fever COMPARISON: Chest radiograph 06/08/2020, CTA chest 02/15/2020 TECHNIQUE: Multidetector volumetric CT imaging of the chest was done. Axial MIP volume rendering provided. Sagittal and coronal reformatted images were obtained. No intravenous contrast. This CT examination was performed using dose optimization techniques as appropriate, variously including the following: *Automated exposure control *Adjustment of mA and/or kV according to patient size (this includes techniques or standardized protocols for targeted exams where dose is matched to indication/reason for exam; i.e. extremities or head) *Use of iterative reconstruction technique DLP: 370 mGy-cm FINDINGS: LUNGS: The central airways are clear and there is no endobronchial lesion or bronchiectasis. There is no airspace consolidation or groundglass opacity. No pneumothorax or pneumomediastinum. Incidental punctate calcified granuloma present right lower lobe, series 6/263 and anterior left upper lobe, series 6/161. MEDIASTINUM: Heart size normal. No pericardial effusion. Prior mitral valve replacement. Thoracic aorta normal in caliber. No hilar or mediastinal adenopathy. There may be common origin of the right brachiocephalic and left common carotid arteries. PLEURA: There is no pleural effusion. No pleural mass or thickening. AXILLA: No lymphadenopathy. UPPER ABDOMEN: Unremarkable. CT abdomen and pelvis described in separate report. OSSEOUS STRUCTURES: No acute bony abnormality. Prior median sternotomy. Probable old healed fracture left scapula body. CT/CT chest wo con IMPRESSION: No airspace consolidation or groundglass opacity or effusion. No adenopathy. <Miles Jung NP - Last Filed: 06/08/20 16:50> CT scan - abdomen: Attestation: I personally reviewed and interpreted this imaging study as follows: <Miles Jung NP - Last Filed: 06/08/20 16:50> Radiologist's impression: EXAMINATION: CT ABDOMEN AND PELVIS WITHOUT CONTRAST CLINICAL INFORMATION: Fever. COMPARISON: CT abdomen and pelvis without contrast 03/28/2020. TECHNIQUE: Multidetector volumetric imaging was performed from the superior aspect of the liver through the pubic symphysis. Sagittal and coronal reformatted images were obtained on the technologist's workstation. This CT examination was performed using dose optimization techniques as appropriate, variously including the following: *Automated exposure control *Adjustment of mA and/or kV according to patient size (this includes techniques or standardized protocols for targeted exams where dose is matched to indication/reason for exam; i.e. extremities or head) *Use of iterative reconstruction technique DLP: 1275 mGy-cm FINDINGS: LUNG BASES: The heart size is normal. The lung bases are clear. There is a mitral valve prosthesis in place. LIVER, GALLBLADDER, AND BILIARY TREE: The liver is enlarged but otherwise normal size and shape. There is normal attenuation. No focal lesion or intrahepatic ductal dilatation seen. Liver measures 20 cm in length. The gallbladder is unremarkable with no evidence of radiopaque gallstones, gallbladder wall thickening, or obvious pericholecystic inflammatory changes. PANCREAS: Unremarkable. SPLEEN: Unremarkable. ADRENAL GLANDS: Unremarkable. KIDNEYS AND URETERS: The kidneys are normal in size, shape, and attenuation. There are punctate radiopaque 2 mm calculi lower pole left kidney and upper and midpole right kidney. No caliectasis or hydronephrosis seen. BLADDER: Unremarkable. GASTROINTESTINAL TRACT: There is scattered stool and gas seen throughout the colon without distention. There are annular sutures in the sigmoid colon with a patent anastomosis. A few scattered diverticuli are seen in colon without any diverticulitis. There is no obstruction or free air. The appendix is normal caliber. ABDOMINAL WALL: There are postsurgical changes anterior abdominal wall. No evidence of hernia. LYMPH NODES: Normal. VASCULAR: Unremarkable. PELVIC VISCERA: There is no free air free fluid. No abnormal lymph nodes. OSSEOUS STRUCTURES: Unremarkable. CT/CT abdomen pelvis wo con IMPRESSION: No acute intra-abdominal process seen. Scattered colonic diverticulosis. An anastomotic suture line along the sigmoid colon is widely patent. Scattered nonobstructive tiny radiopaque renal calculi. <Miles Jung NP - Last Filed: 06/08/20 16:50> ECG Data Attestation: I personally reviewed and interpreted this ECG as follows: <Miles Jung NP - Last Filed: 06/08/20 16:50> Interpretation: ST 108, normal pr, normal qrs, normal qt <ODETTE Haney Last Filed: 06/08/20 16:50> Discharge Plan Discharge Clinical Impression: Acute viral syndrome <ODETTE Haney Last Filed: 06/08/20 16:50> Patient Disposition: Home, Self-Care <ODETTE Haney Last Filed: 06/08/20 16:50> Instructions: Viral Syndrome (ED) <ODETTE Haney Last Filed: 06/08/20 16:50> Additional Instructions: You were given a lab slip for stool studies Take Motrin or Tylenol as needed for pain or fever If you continue to have fevers and symptoms you may consider getting retested for COVID Return here for persistent fever greater than 3 days, vomiting more than 2 episodes unrelieved with home nausea medicine, severe headache or neck pain <Miles Jung NP - Last Filed: 06/08/20 16:50> Prescriptions: New ondansetron 4 mg tablet,disintegrating 4 mg PO Q6H PRN (Reason: nausea and vomiting) Qty: 10 RF: 0 No Action hydromorphone 2 mg Tablet 2 mg PO Q6H PRN (Reason: Pain (Scale Score 4-6)) RF: 0 benazepril 10 mg Tablet 10 mg PO DAILY RF: 0 sertraline 50 mg Tablet 50 mg PO DAILY RF: 0 doxycycline hyclate 100 mg capsule 100 mg PO BID Qty: 10 RF: 0 gabapentin 300 mg Capsule 300 mg PO BEDTIME RF: 0 atorvastatin 20 mg tablet 20 mg PO DAILY RF: 0 amlodipine 10 mg tablet 10 mg PO DAILY RF: 0 aspirin [Adult Low Dose Aspirin] 81 mg tablet,delayed release (DR/EC) 81 mg PO DAILY RF: 0 omeprazole 20 mg capsule,delayed release(DR/EC) 20 mg PO DAILY RF: 0 docusate sodium 100 mg capsule 100 mg PO DAILY RF: 0 metoprolol tartrate 50 mg tablet 50 mg PO TID RF: 0 cyclobenzaprine 10 mg tablet 10 mg PO BEDTIME RF: 0 dicyclomine 20 mg tablet 20 mg PO TID RF: 0 baclofen 10 mg tablet 10 mg PO TID RF: 0 tamsulosin [Flomax] 0.4 mg capsule 0.4 mg PO DAILY Qty: 30 RF: 0 <Miles Jung NP - Last Filed: 06/08/20 16:50> Referrals: Daniel Cisneros MD [Primary Care Provider] - 2 days <Miles Jung NP - Last Filed: 06/08/20 16:50> Discharge Date/Time: 06/08/20 16:38 <Miles Jung NP - Last Filed: 06/08/20 16:50>
[2020-06-08] MEDS: 0.9 % Sodium Chloride 2,000 ML 999 ML IV (10:43)
[2020-06-08] MEDS: ondansetron HCL 4 MG/2 ML VIAL IVPUSH ×2 (10:43→12:23)
[2020-06-08 11:04] LABS: Basophils Absolute Auto 0.1 X10*3/uL (0.0-0.2); Basophils Percent Auto 0.3 % (0-2); Eosinophils Percent Auto 0.1 % (0-4); Hematocrit 51.8 % (42-52); Hemoglobin 16.5 g/dl (14.0-18.0); Imm Gran Abs Auto 0.13 X10*3/uL (0.00-0.03); Imm Gran Pct Auto 0.5 % (0.0-0.4); Lymphocytes Absolute Auto 1.4 X10*3/uL (1.2-4.9); Lymphocytes Percent Auto 5.8 % (20-40); MANUAL DIFF FLAG SCAN; Mean Corpuscular HGB Conc 31.9 g/dl (31.0-36.0); Mean Corpuscular Hemoglobin 27.1 pg (27.0-33.0); Mean Corpuscular Volume 85.2 fL (80-98); Mean Platelet Volume 12.7 fL (9.4-12.4); Monocytes Absolute Auto 1.3 X10*3/uL (0.1-1.2); Monocytes Percent Auto 5.2 % (2-11); Neutrophils Percent Auto 88.1 % (45-73); Platelet Count 269 X10*3/uL (160-400); Red Blood Count 6.08 X10*6/uL (4.60-5.80); Red Cell Distribution Width 16.5 % (11.0-16.0); SCAN SMEAR FLAG 1; White Blood Count 23.8 X10*3/uL (4.8-10.8)
[2020-06-08 11:08] LABS: INTERNATIONAL NORM RATIO 1.2 (0.9-1.1); Prothrombin Time 13.8 SEC (10.8-13.0)
[2020-06-08 11:19] LABS: Lactic Acid 1.7 mmol/L (0.5-2.0)
[2020-06-08 11:23] LABS: SLIDE REVIEW VERIFIED
[2020-06-08 11:26] LABS: COVID-19 Test Negative (Negative)
[2020-06-08 11:39] LABS: Glucose Urine UA NEG (NEG); Leukocyte Esterase Urine NEG (NEG); Nitrite Urine NEG (NEG); PH 5.5 (5.0-8.0); Specific Gravity - Urine 1.025 (1.005-1.025); Urine Blood 1+ (NEG); Urine Ketones NEG (NEG); Urine Protein NEG (NEG-TRACE)
[2020-06-08 11:39] LABS: Alanine Aminotransferase 32 U/L (0-40); Albumin Level 4.2 g/dL (3.5-5.0); Alkaline Phosphatase 34 U/L (39-117); Anion Gap 13 (12-20); Aspartate Amino Transferase 19 U/L (5-37); Bilirubin Direct 0.2 mg/dL (0.0-0.5); Bilirubin Total 0.7 mg/dL (0.0-1.0); Blood Urea Nitrogen 16 mg/dL (9-16); Calcium 8.9 mg/dL (8.4-10.2); Carbon Dioxide 29 mmol/L (22-29); Chloride 100 mmol/L (96-108); Estimated Glomerular Filt Rate 43; Glucose Random 92 mg/dL (60-115); Magnesium 1.9 mg/dL (1.6-2.6); Potassium 4.6 mmol/L (3.3-5.1); Sodium 137 mmol/L (135-145); Total Protein 7.7 g/dL (6.5-8.0)
[2020-06-08 11:40] LABS: Appearance Urine CLEAR; Color Urine YELLOW
--- NOTE | 2020-06-08 11:45 | ECG_ITS ---
Test Reason : SOB Blood Pressure : / mmHG Vent. Rate : 108 BPM Atrial Rate : 108 BPM P-R Int : 144 ms QRS Dur : 092 ms QT Int : 362 ms P-R-T Axes : 034 058 051 degrees QTc Int : 485 ms Sinus tachycardia Otherwise normal ECG When compared with ECG of 15-FEB-2020 15:07, No significant change was found Referred By: Joan Villanueva Electronically Signed By:Chino Linton
[2020-06-08 11:47] VITALS: BP 154/100; PULSE 110; RESP 18; TEMP 37.7; O2SAT 98
[2020-06-08 11:56] LABS: RBC Urine 0-2 /HPF (0); Squamous Epithelial Cell Urine 1+ /LPF; WBC Urine 0-2 /HPF (0-4)
[2020-06-08 12:10] LABS: Adenovirus PCR Not Detected (Not Detect.); Bordetella parapertussis PCR Not Detected (Not Detect.); Bordetella pertussis PCR Not Detected (Not Detect.); Chlamydia pneumoniae PCR Not Detected (Not Detect.); Coronavirus 229E PCR Not Detected (Not Detect.); Coronavirus HKU1 PCR Not Detected (Not Detect.); Coronavirus NL63 PCR Not Detected (Not Detect.); Coronavirus OC43 PCR Not Detected (Not Detect.); Human metapneumovirus PCR Not Detected (Not Detect.); Influenza A PCR Not Detected (Not Detect.); Influenza B PCR Not Detected (Not Detect.); Mycoplasma pneumoniae PCR Not Detected (Not Detect.); Parainfluenza 1 PCR Not Detected (Not Detect.); Parainfluenza 2 PCR Not Detected (Not Detect.); Parainfluenza 3 PCR Not Detected (Not Detect.); Parainfluenza 4 PCR Not Detected (Not Detect.); RSV PCR Not Detected (Not Detect.); Rhino/Enterovirus PCR Not Detected (Not Detect.); SARS-CoV-2 PCR Not Detected (Not Detect.)
[2020-06-08] MEDS: Acetaminophen 325 MG TABLET 975 MG PO (12:22)
[2020-06-08 13:28] VITALS: BP 165/92; PULSE 103; RESP 22; TEMP 36.7; O2SAT 97
[2020-06-08] MEDS: diphenhydrAMINE HCL 25 MG TABLET PO (14:00)
[2020-06-08] MEDS: Metoclopramide HCl 10 MG/2 ML VIAL IVPUSH (14:00)
[2020-06-08] MEDS: 0.9 % Sodium Chloride 1,000 ML 999 ML IV (14:01)
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
[2020-06-08 15:02] VITALS: BP 169/96; PULSE 86; RESP 14; O2SAT 95
--- NOTE | 2020-06-08 15:45 | PC.NURSE ---
PT REPORTS SOME RELIEF FROM NAUSEA. ONGOING HEADACHE. AWAITING ABD CT RESULTS.
== END 2020-06-08 16:38 | disposition home or self-care (01) ==
PROVIDERS: Nurse Practitioner Family; Emergency Provider Emergency Medicine Emergency Medical Services; PCP Internal Medicine
DX: B34.9 Viral infection, unspecified (principal); M79.10 Myalgia, unspecified site; R06.02 Shortness of breath; R07.9 Chest pain, unspecified; I10 Essential (primary) hypertension; H92.03 Otalgia, bilateral; F12.90 Cannabis use, unspecified, uncomplicated; Z20.822 Contact with and (suspected) exposure to COVID-19; Z79.82 Long term (current) use of aspirin; Z79.899 Other long term (current) drug therapy
CPT/HCPCS: 36415; 71045; 71250; 74176; 80048; 80076; 81001; 83605; 83735; 85025; 85610; 87040; 87071; 87147; 87633; 87635; 87880; 93005; 96365; 96366; 96375; 96376; 99284; J2405; J2765; Q0163

== ENCOUNTER 2020-09-14 08:20 | Emergency (ER) | payer OTHER, SELFPAY ==
[2020-09-14] VITALS (8 sets, daily range): BP systolic 138–208; BP diastolic 86–136; PULSE 74–90; RESP 18–20; TEMP 36.9; O2SAT 96; BMI 38.2
--- NOTE | 2020-09-14 | ECG_ITS ---
Test Reason : CHEST PAIN Blood Pressure : / mmHG Vent. Rate : 091 BPM Atrial Rate : 091 BPM P-R Int : 142 ms QRS Dur : 096 ms QT Int : 396 ms P-R-T Axes : 025 047 063 degrees QTc Int : 487 ms Normal sinus rhythm Prolonged QT Abnormal ECG When compared with ECG of 08-JUN-2020 11:57, No significant change was found Referred By: Generic ED Physician Electronically Signed By:TIFFANIE CÁRDENAS
--- NOTE | ~2020-09-14 | XR_ITS ---
EXAMINATION: XR CHEST CLINICAL INFORMATION: Chest pain and SOB COMPARISON: None TECHNIQUE: 2 views of the chest were obtained. FINDINGS: Both lungs are fairly well-expanded and clear of acute pneumonic process. Heart size and pulmonary vascularity is normal. There are median sternotomy sutures and cardiac valve prosthesis in place. No gross bony abnormality seen. XR/XR chest 2V IMPRESSION: Unremarkable chest exam.
--- NOTE | 2020-09-14 09:00 | ECG_ITS ---
Test Reason : CHEST PAIN Blood Pressure : / mmHG Vent. Rate : 076 BPM Atrial Rate : 076 BPM P-R Int : 156 ms QRS Dur : 100 ms QT Int : 442 ms P-R-T Axes : 016 050 074 degrees QTc Int : 497 ms Normal sinus rhythm Normal ECG When compared with ECG of 14-SEP-2020 08:52, No significant change was found Referred By: Parul Lara Electronically Signed By:TIFFANIE CÁRDENAS
--- NOTE | 2020-09-14 09:01 | ED.CHESTPAIN ---
HPI - Chest Pain General Chief Complaint: General Medical Stated Complaint: lt side chest pain, difficulty breathing Time Seen by Provider: 09/14/20 09:01 Source: patient Mode of arrival: ambulatory Limitations: no limitations History of Present Illness MD complaint: chest pain Pertinent past history: other (asthma, HLD) Onset (ago): hour(s) (started at 8am) Timing of current episode: constant Prior episodes: No Onset: during rest Pain location: left chest Pain radiation: none Severity: moderate Quality: sharp Relieving factors: nothing Exacerbating factors: palpation and movement Associated symptoms: nausea and dyspnea Treatment prior to arrival: none Related Data Home Medications Medication Instructions Recorded Confirmed amlodipine 10 mg tablet 10 mg PO DAILY 12/28/19 03/24/20 aspirin 81 mg tablet,delayed 81 mg PO DAILY 12/28/19 03/24/20 release atorvastatin 20 mg tablet 20 mg PO DAILY 12/28/19 03/24/20 baclofen 10 mg tablet 10 mg PO TID 12/28/19 03/24/20 cyclobenzaprine 10 mg tablet 10 mg PO BEDTIME 12/28/19 03/24/20 dicyclomine 20 mg tablet 20 mg PO TID 12/28/19 03/24/20 docusate sodium 100 mg capsule 100 mg PO DAILY 12/28/19 03/24/20 metoprolol tartrate 50 mg tablet 50 mg PO TID 12/28/19 03/24/20 omeprazole 20 mg capsule,delayed 20 mg PO DAILY 12/28/19 03/24/20 release gabapentin 300 mg PO BEDTIME 01/07/20 03/24/20 benazepril 10 mg PO DAILY 02/16/20 03/24/20 hydromorphone 2 mg PO Q6H PRN 02/16/20 03/24/20 sertraline 50 mg PO DAILY 02/16/20 03/24/20 Previous Rx's Medication Instructions Recorded doxycycline hyclate 100 mg PO BID #10 cap 02/18/20 tamsulosin 0.4 mg capsule 0.4 mg PO DAILY #30 cap 03/24/20 ondansetron 4 mg PO Q6H PRN #10 tab 06/08/20 cyclobenzaprine 10 mg tablet 10 mg PO TID PRN 10 Days #30 tab 07/22/20 ibuprofen 800 mg tablet 800 mg PO Q8H PRN 14 Days #42 tab 04/23/21 Allergies Allergy/AdvReac Type Severity Reaction Status Date / Time morphine [MORPHINE] Allergy Unknown HIVES, rash Verified 07/22/20 15:20 Review of Systems Review of Systems: Constitutional : No Weight loss, No Fever, No Chills ENT/Mouth : No sore throat, No Rhinorrhea Eyes: No Eye Pain, No Swelling Cardiovascular : pos Chest Pain, pos SOB, no Dyspnea on Exertion, No Orthopnea, No Edema, No Palpitations Respiratory : No Cough, No Sputum Gastrointestinal : pos Nausea, No Vomiting, No Diarrhea, No abdominal Pain, No Hematochezia, No Melena Genitourinary : No Dysuria, No Urinary Frequency Musculoskeletal : No joint pain, No Myalgias, No Joint Swelling Skin : No Skin Lesions, No rash Neuro : No Weakness, No Numbness, No Dizziness, No Headache Psych : No Anxiety/Panic, No Depression Heme/Lymph: No Bruising, No Lymphadenopathy Endocrine : No Polyuria, No Polydipsia All other systems reviewed and are negative [facility] Past Medical History Attestation statement: The following information was validated with the patient. Medical History Anxiety Constipation GERD (gastroesophageal reflux disease) History of diverticulitis Hyperlipidemia Hypertension Mitral valve disease Right ankle pain Surgical History H/O mitral valve repair Status post Ammy procedure (10/21/19) Family History Family History Mother No problems noted. Father No problems noted. Social History Social History Household Members: Significant Other Housing: Apartment Are you a primary customer care representative to a significant other at home: No Do you presently have visiting nurse or other home services: Yes ([employer] [facility]) Alcohol intake: never Patient Tobacco Use Status: Never used Tobacco Second Hand Smoke Exposure: No Use of substances other than those prescribed or required for medical reasons: No Substance Use Type: Marijuana Advance Directives: Yes Advance Directives on File: Yes Advance Directives Date on File: 02/22/20 service: No Current occupational status: unemployed Physical Exam Vital Signs: Vital Signs: Last Vital Signs Temp 98.4 F 09/14/20 08:44 Pulse 81 09/14/20 11:55 Resp 18 09/14/20 11:55 BP 138/86 09/14/20 11:55 Pulse Ox 96 09/14/20 09:10 Body Mass Index 38.2 Appearance: Alert. Oriented X3. No acute distress. Eyes: Pupils equal, round and reactive to light. ENT: Pharynx normal. Neck: Normal inspection. Neck supple. CVS: Normal heart rate and rhythm. Pulses normal. Chest: ttp along L pectoralis muscle which reproduces pain Respiratory: No respiratory distress. Breath sounds normal. Abdomen: Soft and nontender. Skin: Skin warm and dry. Normal skin color. Normal skin turgor. Extremities: No lower extremity edema. No calf ttp Neuro: Oriented X 3. No motor deficit. No sensory deficit. Course Course Course Narrative: no response to nitro or aspirin, BP in both arms to be checked BP symmetric in both arms R 147/90 L 140/97 no sig increase in troponin, isolated t wave, no response to nitro seems atypical for ACS and he has had two flat troponins, BP better controlled, stable for DC after much discussion Edward is under significant stress at home with an alcoholic terrible roommate and he is having severe anxiety and adjustments issues because of this, no SI MDM - Chest Pain MDM Narrative Medical decision making narrative: 49 yo male with hx of HTN, HLD, mitral valve repair tissue here with L sided reproduceable chest pain but also dyspnea, nausea - did not take his BP medications, at this time PERC negative will need labs, troponin x 2, CXR, PO HTN medications and nitro for pain, dispo per results and findings. Lab Data Result diagrams: 09/14/20 09:24 09/14/20 09:24 Labs: Lab Results 09/14/20 09/14/20 09/14/20 Range/Units 09:24 09:24 09:24 WBC 12.7 H (4.8-10.8) X10*3/uL RBC 5.55 (4.60-5.80) X10*6/uL Hgb 15.5 (14.0-18.0) g/dl Hct 48.0 (42-52) % MCV 86.5 (80-98) fL MCH 27.9 (27.0-33.0) pg MCHC 32.3 (31.0-36.0) g/dl RDW 15.6 (11.0-16.0) % Plt Count 256 (160-400) X10*3/uL MPV 11.3 (9.4-12.4) fL Immature Gran % (Auto) 0.9 H (0.0-0.4) % Neut % (Auto) 74.0 H (45-73) % Lymph % (Auto) 17.0 L (20-40) % [place] % (Auto) 6.0 (2-11) % Eos % (Auto) 1.6 (0-4) % Baso % (Auto) 0.5 (0-2) % Lymph # (Auto) 2.2 (1.2-4.9) X10*3/uL [place] # (Auto) 0.8 (0.1-1.2) X10*3/uL Eos # (Auto) 0.2 (0.0-0.4) X10*3/uL Baso # (Auto) 0.1 (0.0-0.2) X10*3/uL Abs Immat Gran (auto) 0.11 H (0.00-0.03) X10*3/uL Absolute Neuts (auto) 9.4 H (2.0-8.3) X10*3/uL Absolute Nucleated RBC 0.000 (0.0-0.012) X10*3/uL Nucleated RBC % (auto) 0.0 (0.0-0.2) /100WBC PT 12.5 (10.8-13.0) SEC INR 1.1 (0.9-1.1) APTT 36.7 (24.1-38.0) SEC Sodium 138 (135-145) mmol/L Potassium 3.9 (3.3-5.1) mmol/L Chloride 103 (96-108) mmol/L Carbon Dioxide 25 (22-29) mmol/L Anion Gap 14 (12-20) BUN 12 (9-16) mg/dL Creatinine 1.39 (0.5-1.4) mg/dL Estim Creat Clear Calc 73.0 Estimated GFR 55 Random Glucose 136 H D (60-115) mg/dL Calcium 8.5 (8.4-10.2) mg/dL Magnesium 1.9 (1.6-2.6) mg/dL Total Bilirubin 0.5 (0.0-1.0) mg/dL Direct Bilirubin 0.2 (0.0-0.5) mg/dL AST 28 D (5-37) U/L ALT 47 H (0-40) U/L Alkaline Phosphatase 32 L (39-117) U/L Troponin I High Sens (<3.5-35.0) ng/L Total Protein 7.1 (6.5-8.0) g/dL Albumin 3.9 (3.5-5.0) g/dL Lipase 10 (8-78) U/L 09/14/20 09/14/20 Range/Units 09:24 12:16 WBC (4.8-10.8) X10*3/uL RBC (4.60-5.80) X10*6/uL Hgb (14.0-18.0) g/dl Hct (42-52) % MCV (80-98) fL MCH (27.0-33.0) pg MCHC (31.0-36.0) g/dl RDW (11.0-16.0) % Plt Count (160-400) X10*3/uL MPV (9.4-12.4) fL Immature Gran % (Auto) (0.0-0.4) % Neut % (Auto) (45-73) % Lymph % (Auto) (20-40) % [place] % (Auto) (2-11) % Eos % (Auto) (0-4) % Baso % (Auto) (0-2) % Lymph # (Auto) (1.2-4.9) X10*3/uL [place] # (Auto) (0.1-1.2) X10*3/uL Eos # (Auto) (0.0-0.4) X10*3/uL Baso # (Auto) (0.0-0.2) X10*3/uL Abs Immat Gran (auto) (0.00-0.03) X10*3/uL Absolute Neuts (auto) (2.0-8.3) X10*3/uL Absolute Nucleated RBC (0.0-0.012) X10*3/uL Nucleated RBC % (auto) (0.0-0.2) /100WBC PT (10.8-13.0) SEC INR (0.9-1.1) APTT (24.1-38.0) SEC Sodium (135-145) mmol/L Potassium (3.3-5.1) mmol/L Chloride (96-108) mmol/L Carbon Dioxide (22-29) mmol/L Anion Gap (12-20) BUN (9-16) mg/dL Creatinine (0.5-1.4) mg/dL Estim Creat Clear Calc Estimated GFR Random Glucose (60-115) mg/dL Calcium (8.4-10.2) mg/dL Magnesium (1.6-2.6) mg/dL Total Bilirubin (0.0-1.0) mg/dL Direct Bilirubin (0.0-0.5) mg/dL AST (5-37) U/L ALT (0-40) U/L Alkaline Phosphatase (39-117) U/L Troponin I High Sens 8.1 9.1 (<3.5-35.0) ng/L Total Protein (6.5-8.0) g/dL Albumin (3.5-5.0) g/dL Lipase (8-78) U/L ECG Data ECG #1: Attestation: I personally reviewed and interpreted this ECG as follows: ECG interpretation date: 09/14/20 ECG interpretation time: 09:05 Interpretation: Rate: 91 Rhythm: NSR [place]: normal Normal P waves. Normal BHAIVN. Normal QRS complex. ST T wave : no MIRELLA, inverted aVL qTC: prolonged prior studies: new aVL t wave inversion The study has been interpreted contemporaneously by me. EKG#2 Rate: 76 Rhythm: NSR [place]: normal Normal P waves. Normal BHAVIN. Normal QRS complex. ST T wave : no MIRELLA, inverted aVL qTC: normal prior studies: unchanged The study has been interpreted contemporaneously by me. . Scores Heart Score History: -1- moderately suspicious ECG: -0- normal Age: -1- >45 - <65 Risk factory: -1- 1 or 2 risk factors Troponin: -0- < or = normal limit Score: 3 Risk: 1.7% Discharge Plan Discharge Clinical Impression: Chest pain Qualifiers: Chest pain type: unspecified Qualified Code(s): R07.9 - Chest pain, unspecified Patient Disposition: Home, Self-Care Instructions: Chest Pain (ED) Additional Instructions: return to ED for any worsening symptoms or concerns please call your primary care doctor for outpatient stress test Prescriptions: No Action hydromorphone 2 mg Tablet 2 mg PO Q6H PRN (Reason: Pain (Scale Score 4-6)) RF: 0 benazepril 10 mg Tablet 10 mg PO DAILY RF: 0 sertraline 50 mg Tablet 50 mg PO DAILY RF: 0 doxycycline hyclate 100 mg capsule 100 mg PO BID Qty: 10 RF: 0 gabapentin 300 mg Capsule 300 mg PO BEDTIME RF: 0 ondansetron 4 mg tablet,disintegrating 4 mg PO Q6H PRN (Reason: nausea and vomiting) Qty: 10 RF: 0 ibuprofen 800 mg tablet 800 mg PO Q8H PRN (Reason: pain) 14 Days Qty: 42 RF: 0 cyclobenzaprine 10 mg tablet 10 mg PO TID PRN (Reason: muscle spasm) 10 Days Qty: 30 RF: 0 atorvastatin 20 mg tablet 20 mg PO DAILY RF: 0 amlodipine 10 mg tablet 10 mg PO DAILY RF: 0 aspirin [Adult Low Dose Aspirin] 81 mg tablet,delayed release (DR/EC) 81 mg PO DAILY RF: 0 omeprazole 20 mg capsule,delayed release(DR/EC) 20 mg PO DAILY RF: 0 docusate sodium 100 mg capsule 100 mg PO DAILY RF: 0 metoprolol tartrate 50 mg tablet 50 mg PO TID RF: 0 cyclobenzaprine 10 mg tablet 10 mg PO BEDTIME RF: 0 dicyclomine 20 mg tablet 20 mg PO TID RF: 0 baclofen 10 mg tablet 10 mg PO TID RF: 0 tamsulosin [Flomax] 0.4 mg capsule 0.4 mg PO DAILY Qty: 30 RF: 0 Referrals: Daniel Cisneros MD [Primary Care Provider] - 2 days Stand Alone Forms: Work/School Release Interventions: ED Discharge Assessment Last Done: 09/14/20 13:37 Discharge Date/Time: 09/14/20 13:38
--- NOTE | 2020-09-14 09:14 | PC.NURSE ---
pt alert and oriented, skin pwd, respirations even and unlabored, pt reports left sided chest pain that started yesterday morning, feels achy/pressure worse with deep inspirations and also reports right arm tingling/numbers that comes and goes as well ns on the monitor
[2020-09-14 09:29] LABS: MANUAL DIFF FLAG NO
[2020-09-14 09:30] LABS: Basophils Absolute Auto 0.1 X10*3/uL (0.0-0.2); Basophils Percent Auto 0.5 % (0-2); Eosinophils Absolute Auto 0.2 X10*3/uL (0.0-0.4); Eosinophils Percent Auto 1.6 % (0-4); Hemoglobin 15.5 g/dl (14.0-18.0); Imm Gran Abs Auto 0.11 X10*3/uL (0.00-0.03); Imm Gran Pct Auto 0.9 % (0.0-0.4); Lymphocytes Absolute Auto 2.2 X10*3/uL (1.2-4.9); Mean Corpuscular HGB Conc 32.3 g/dl (31.0-36.0); Mean Corpuscular Hemoglobin 27.9 pg (27.0-33.0); Mean Corpuscular Volume 86.5 fL (80-98); Mean Platelet Volume 11.3 fL (9.4-12.4); Monocytes Absolute Auto 0.8 X10*3/uL (0.1-1.2); Neutrophils Absolute Auto 9.4 X10*3/uL (2.0-8.3); Platelet Count 256 X10*3/uL (160-400); Red Blood Count 5.55 X10*6/uL (4.60-5.80); Red Cell Distribution Width 15.6 % (11.0-16.0); White Blood Count 12.7 X10*3/uL (4.8-10.8)
[2020-09-14 09:35] LABS: INTERNATIONAL NORM RATIO 1.1 (0.9-1.1); Prothrombin Time 12.5 SEC (10.8-13.0)
[2020-09-14 09:37] LABS: Partial Thromboplastin Time 36.7 SEC (24.1-38.0)
[2020-09-14] MEDS: Cyclobenzaprine HCl 10 MG TABLET PO (09:37)
[2020-09-14] MEDS: Metoprolol Tartrate 50 MG TABLET PO (09:38)
[2020-09-14] MEDS: amLODIPine Besylate 10 MG TABLET PO (09:39)
[2020-09-14 09:58] LABS: Alanine Aminotransferase 47 U/L (0-40); Albumin Level 3.9 g/dL (3.5-5.0); Alkaline Phosphatase 32 U/L (39-117); Anion Gap 14 (12-20); Aspartate Amino Transferase 28 U/L (5-37); Bilirubin Direct 0.2 mg/dL (0.0-0.5); Bilirubin Total 0.5 mg/dL (0.0-1.0); Blood Urea Nitrogen 12 mg/dL (9-16); Calcium 8.5 mg/dL (8.4-10.2); Carbon Dioxide 25 mmol/L (22-29); Chloride 103 mmol/L (96-108); Estimated Glomerular Filt Rate 55; Glucose Random 136 mg/dL (60-115); Lipase 10 U/L (8-78); Magnesium 1.9 mg/dL (1.6-2.6); Potassium 3.9 mmol/L (3.3-5.1); Sodium 138 mmol/L (135-145); Total Protein 7.1 g/dL (6.5-8.0)
[2020-09-14 10:00] LABS: Troponin-I High Sensitivity 8.1 ng/L (<3.5-35.0)
[2020-09-14] MEDS: Aspirin 81 MG TAB.CHEW 162 MG PO (10:07)
[2020-09-14] MEDS: Nitroglycerin 0.4 MG TAB.SUBL SUBLINGUAL (10:08)
--- NOTE | 2020-09-14 10:19 | PC.NURSE ---
pt reports no change in the left sided chest pain after the nitro, pain still 6/10, bp improved
[2020-09-14] MEDS: HYDROcodone Bit/Acetam 5/325 TABLET 1 TAB PO (11:03)
--- NOTE | 2020-09-14 11:55 | PC.NURSE ---
pt reports waking up from sleeping, states he felt like he can't breath when sleeping, pt is diagnosed with sleep apnea but can't wear cpap machine due to anxiety.
[2020-09-14] MEDS: LORazepam 1 MG TABLET PO (12:04)
[2020-09-14 12:57] LABS: Troponin-I High Sensitivity 9.1 ng/L (<3.5-35.0)
--- NOTE | 2020-09-14 13:18 | PC.NURSE ---
pt is currently eating lunch
== END 2020-09-14 13:38 | disposition home or self-care (01) ==
PROVIDERS: Emergency Provider Emergency Medicine; PCP Internal Medicine
DX: R07.9 Chest pain, unspecified (principal); R06.00 Dyspnea, unspecified; R11.0 Nausea; I10 Essential (primary) hypertension; Z79.899 Other long term (current) drug therapy
CPT/HCPCS: 36415; 71046; 80048; 80076; 83690; 83735; 84484; 85025; 85610; 85730; 93005; 99285

== ENCOUNTER 2020-10-10 10:27 | Emergency (ER) | payer OTHER, SELFPAY ==
--- NOTE | ~2020-10-10 | XR_ITS ---
EXAMINATION: XR CHEST CLINICAL INFORMATION: Sudden onset abdominal pain with nausea and vomiting COMPARISON: None TECHNIQUE: 2 views of the chest were obtained. FINDINGS: The lungs are well-expanded and clear. The heart size and pulmonary vascularity is normal. There are median sternotomy sutures and valve prosthesis. No gross bony abnormality seen. XR/XR chest 2V IMPRESSION: No acute process in the chest.
--- NOTE | ~2020-10-10 | CT_ITS ---
EXAMINATION: CT ABDOMEN AND PELVIS WITH CONTRAST CLINICAL INFORMATION: SOB and nausea, vomiting and abdominal pain. COMPARISON: Both. TECHNIQUE: Multidetector volumetric images were obtained from the superior aspect of the liver through the pubic symphysis following administration 85 mL of Omnipaque 350 intravenous contrast. Sagittal and coronal reformatted images were obtained on the technologist's workstation. Oral contrast: No This CT examination was performed using dose optimization techniques as appropriate, variously including the following: *Automated exposure control *Adjustment of mA and/or kV according to patient size (this includes techniques or standardized protocols for targeted exams where dose is matched to indication/reason for exam; i.e. extremities or head) *Use of iterative reconstruction technique DLP: 859 mGy-cm. FINDINGS: LUNG BASES: Lung bases are clear. The heart size is normal. LIVER, GALLBLADDER, AND BILIARY TREE: The liver is normal in size, shape, and diffuse attenuation. No focal hepatic lesion or biliary ductal dilatation is present. The gallbladder is unremarkable with no evidence of radiopaque gallstones, gallbladder wall thickening, or obvious pericholecystic inflammatory changes. PANCREAS: Unremarkable. SPLEEN: Unremarkable. ADRENAL GLANDS: Unremarkable. KIDNEYS AND URETERS: The kidneys are normal in size, shape, and attenuation. There is a nonobstructive 4 mm radiopaque calculus midpole right kidney and a 5 mm cyst upper pole right kidney. No caliectasis or hydronephrosis seen in either kidney. BLADDER: The bladder is nondilated and appears unremarkable. GASTROINTESTINAL TRACT: There are annular sutures in sigmoid colon with widely patent lumen. There is a small area of annular thickening just distally in the sigmoid colon on axial image 75/3. This could be spasm. There is scattered stool and diverticuli seen in the colon without obstruction or diverticulitis. The small bowel loops are normal. Appendix is normal caliber. ABDOMINAL WALL: No evidence of hernia. There is ill-defined opacity left abdominal wall likely from subcutaneous injection. Correlate clinically. Small bilateral inguinal hernias containing fat. LYMPH NODES: There are small shotty lymph nodes in the aortocaval region measuring 1 cm on axial image 43/3. VASCULAR: Unremarkable. PELVIC VISCERA: Unremarkable. OSSEOUS STRUCTURES: No lytic or sclerotic process seen. CT/CT abdomen pelvis w con IMPRESSION: Anastomotic suture line along the proximal sigmoid colon, widely patent. Small area of annular thickening in the [id number] sigmoid colon on axial image 75/3. This could be spasm. Correlate clinically. A few scattered sigmoid and descending colon diverticuli but no evidence of diverticulitis. Mild constipation. Nonobstructive midpole radiopaque calculus and a small probable cyst upper pole right kidney. No hydronephrosis. Mild hepatic steatosis.
[2020-10-10 10:34] VITALS: BP 181/114; BP 220/120; PULSE 82; PULSE 88; RESP 16; O2SAT 100; BMI 34.7
[2020-10-10 11:31] LABS: MANUAL DIFF FLAG NO
[2020-10-10 11:32] LABS: Basophils Absolute Auto 0.1 X10*3/uL (0.0-0.2); Basophils Percent Auto 0.3 % (0-2); Eosinophils Absolute Auto 0.1 X10*3/uL (0.0-0.4); Eosinophils Percent Auto 0.9 % (0-4); Hematocrit 48.1 % (42-52); Hemoglobin 15.6 g/dl (14.0-18.0); Imm Gran Abs Auto 0.16 X10*3/uL (0.00-0.03); Lymphocytes Absolute Auto 2.2 X10*3/uL (1.2-4.9); Lymphocytes Percent Auto 13.6 % (20-40); Mean Corpuscular HGB Conc 32.4 g/dl (31.0-36.0); Mean Corpuscular Hemoglobin 28.5 pg (27.0-33.0); Mean Corpuscular Volume 87.9 fL (80-98); Mean Platelet Volume 11.3 fL (9.4-12.4); Monocytes Absolute Auto 0.9 X10*3/uL (0.1-1.2); Monocytes Percent Auto 5.4 % (2-11); Neutrophils Absolute Auto 12.6 X10*3/uL (2.0-8.3); Neutrophils Percent Auto 78.8 % (45-73); Platelet Count 294 X10*3/uL (160-400); Red Blood Count 5.47 X10*6/uL (4.60-5.80); Red Cell Distribution Width 15.5 % (11.0-16.0)
[2020-10-10 11:36] VITALS: BP 180/110; PULSE 76; O2SAT 96
[2020-10-10 11:37] LABS: Glucose Urine UA 500 MG/DL (NEG); Leukocyte Esterase Urine NEG (NEG); Nitrite Urine NEG (NEG); Specific Gravity - Urine 1.025 (1.005-1.025); Urine Blood TRACE (NEG); Urine Ketones NEG (NEG); Urine Protein TRACE MG/DL (NEG-TRACE)
[2020-10-10 11:43] LABS: Appearance Urine CLEAR; Color Urine YELLOW
[2020-10-10 11:54] LABS: Alanine Aminotransferase 85 U/L (0-40); Albumin Level 3.9 g/dL (3.5-5.0); Alkaline Phosphatase 32 U/L (39-117); Anion Gap 14 (12-20); Aspartate Amino Transferase 47 U/L (5-37); Bilirubin Total 0.4 mg/dL (0.0-1.0); Blood Urea Nitrogen 13 mg/dL (9-16); Carbon Dioxide 24 mmol/L (22-29); Chloride 103 mmol/L (96-108); Creatinine Clr Calc Pharmacy 64.1; Estimated Glomerular Filt Rate 48; Glucose Random 204 mg/dL (60-115); Lipase 20 U/L (8-78); Magnesium 2.1 mg/dL (1.6-2.6); Potassium 4.7 mmol/L (3.3-5.1); Sodium 136 mmol/L (135-145); Total Protein 7.7 g/dL (6.5-8.0)
[2020-10-10 11:55] LABS: Squamous Epithelial Cell Urine TRACE /LPF; WBC Urine 0-2 /HPF (0-4)
[2020-10-10 12:01] LABS: B Type Natriuretic Peptide < 10 pg/mL (<100); Troponin-I High Sensitivity 6.4 ng/L (<3.5-35.0)
[2020-10-10 12:08] LABS: INTERNATIONAL NORM RATIO 1.1 (0.9-1.1); Prothrombin Time 12.1 SEC (9.9-13.0)
[2020-10-10] MEDS: iohexoL 350 MG/ML 100 ML INFUS..BTL 85 ML IV (12:18)
--- NOTE | 2020-10-10 12:41 | ED_ITS ---
HPI - General Adult General Chief complaint: Anxiety Stated complaint: anxiety Time Seen by Provider: 10/10/20 10:29 Source: patient and EMS Mode of arrival: EMS Limitations: no limitations History of Present Illness HPI narrative: 49-year-old male with a past medical history of hypertension, hyperlipidemia, CKD, anxiety, GERD, sigmoid diverticulitis who had a colostomy and now status post reversal of colostomy, abdominal wall seroma and urinary tension presenting to the ED via EMS with complaints of sudden onset of nausea/vomiting and diffuse abd pain which exacerbated the patient's anxiety therefore he called EMS. Related Data Home Medications Medication Instructions Recorded Confirmed amlodipine 10 mg tablet 10 mg PO DAILY 12/28/19 03/24/20 aspirin 81 mg tablet,delayed 81 mg PO DAILY 12/28/19 03/24/20 release atorvastatin 20 mg tablet 20 mg PO DAILY 12/28/19 03/24/20 baclofen 10 mg tablet 10 mg PO TID 12/28/19 03/24/20 cyclobenzaprine 10 mg tablet 10 mg PO BEDTIME 12/28/19 03/24/20 dicyclomine 20 mg tablet 20 mg PO TID 12/28/19 03/24/20 docusate sodium 100 mg capsule 100 mg PO DAILY 12/28/19 03/24/20 metoprolol tartrate 50 mg tablet 50 mg PO TID 12/28/19 03/24/20 omeprazole 20 mg capsule,delayed 20 mg PO DAILY 12/28/19 03/24/20 release gabapentin 300 mg PO BEDTIME 01/07/20 03/24/20 benazepril 10 mg PO DAILY 02/16/20 03/24/20 hydromorphone 2 mg PO Q6H PRN 02/16/20 03/24/20 sertraline 50 mg PO DAILY 02/16/20 03/24/20 Previous Rx's Medication Instructions Recorded doxycycline hyclate 100 mg PO BID #10 cap 02/18/20 tamsulosin 0.4 mg capsule 0.4 mg PO DAILY #30 cap 03/24/20 ondansetron 4 mg PO Q6H PRN #10 tab 06/08/20 cyclobenzaprine 10 mg tablet 10 mg PO TID PRN 10 Days #30 tab 07/22/20 ibuprofen 800 mg tablet 800 mg PO Q8H PRN 14 Days #42 tab 07/22/20 Allergies Allergy/AdvReac Type Severity Reaction Status Date / Time morphine [MORPHINE] Allergy Unknown HIVES, rash Verified 07/22/20 15:20 [facility] Past Medical History Medical History Anxiety Constipation GERD (gastroesophageal reflux disease) History of diverticulitis Hyperlipidemia Hypertension Mitral valve disease Right ankle pain Surgical History H/O mitral valve repair Status post Ammy procedure (10/21/19) Family History Family History Mother No problems noted. Father No problems noted. Social History Social History Household Members: Significant Other Housing: Apartment Are you a primary medical care manager to a significant other at home: No Do you presently have visiting nurse or other home services: Yes ([facility] [employer]) Alcohol intake: current Alcohol intake frequency: a few times a week Alcohol type: beer Patient Tobacco Use Status: Never used Tobacco Second Hand Smoke Exposure: No Use of substances other than those prescribed or required for medical reasons: Yes Substance Use Type: Marijuana Advance Directives: Yes Advance Directives on File: Yes Advance Directives Date on File: 02/22/20 service: No Current occupational status: unemployed Physical Exam Vital Signs: Vital Signs: Last Vital Signs Pulse 76 10/10/20 11:36 Resp 16 10/10/20 10:34 BP 180/110 H 10/10/20 11:36 Pulse Ox 96 10/10/20 11:36 Body Mass Index 34.7 Medical Decision Making Lab Data Result diagrams: 10/10/20 11:25 10/10/20 11:25 Labs: Lab Results 10/10/20 10/10/20 10/10/20 Range/Units 11:25 11:25 11:25 WBC 16.0 H (4.8-10.8) X10*3/uL RBC 5.47 (4.60-5.80) X10*6/uL Hgb 15.6 (14.0-18.0) g/dl Hct 48.1 (42-52) % MCV 87.9 (80-98) fL MCH 28.5 (27.0-33.0) pg MCHC 32.4 (31.0-36.0) g/dl RDW 15.5 (11.0-16.0) % Plt Count 294 (160-400) X10*3/uL MPV 11.3 (9.4-12.4) fL Immature Gran % (Auto) 1.0 H (0.0-0.4) % Neut % (Auto) 78.8 H (45-73) % Lymph % (Auto) 13.6 L (20-40) % [place] % (Auto) 5.4 (2-11) % Eos % (Auto) 0.9 (0-4) % Baso % (Auto) 0.3 (0-2) % Lymph # (Auto) 2.2 (1.2-4.9) X10*3/uL [place] # (Auto) 0.9 (0.1-1.2) X10*3/uL Eos # (Auto) 0.1 (0.0-0.4) X10*3/uL Baso # (Auto) 0.1 (0.0-0.2) X10*3/uL Abs Immat Gran (auto) 0.16 H (0.00-0.03) X10*3/uL Absolute Neuts (auto) 12.6 H (2.0-8.3) X10*3/uL Absolute Nucleated RBC 0.000 (0.0-0.012) X10*3/uL Nucleated RBC % (auto) 0.0 (0.0-0.2) /100WBC PT 12.1 (9.9-13.0) SEC INR 1.1 (0.9-1.1) Sodium 136 (135-145) mmol/L Potassium 4.7 D (3.3-5.1) mmol/L Chloride 103 (96-108) mmol/L Carbon Dioxide 24 (22-29) mmol/L Anion Gap 14 (12-20) BUN 13 (9-16) mg/dL Creatinine 1.54 H (0.5-1.4) mg/dL Estim Creat Clear Calc 64.1 Estimated GFR 48 Random Glucose 204 H D (60-115) mg/dL Calcium 9.0 (8.4-10.2) mg/dL Magnesium 2.1 (1.6-2.6) mg/dL Total Bilirubin 0.4 (0.0-1.0) mg/dL AST 47 H D (5-37) U/L ALT 85 H (0-40) U/L Alkaline Phosphatase 32 L (39-117) U/L Troponin I High Sens (<3.5-35.0) ng/L B-Natriuretic Peptide (<100) pg/mL Total Protein 7.7 (6.5-8.0) g/dL Albumin 3.9 (3.5-5.0) g/dL Lipase 20 (8-78) U/L Urine Color Urine Appearance Urine pH (5.0-8.0) Ur Specific [place] (1.005-1.025) Urine Protein (NEG-TRACE) MG/DL Urine Glucose (UA) (NEG) MG/DL Urine Ketones (NEG) MG/DL Urine Blood (NEG) Urine Nitrite (NEG) Ur Leukocyte Esterase (NEG) Urine RBC (0) /HPF Urine WBC (0-4) /HPF Ur Squamous Epith Cells /LPF Urine Bacteria /LPF 10/10/20 10/10/20 Range/Units 11:25 11:25 WBC (4.8-10.8) X10*3/uL RBC (4.60-5.80) X10*6/uL Hgb (14.0-18.0) g/dl Hct (42-52) % MCV (80-98) fL MCH (27.0-33.0) pg MCHC (31.0-36.0) g/dl RDW (11.0-16.0) % Plt Count (160-400) X10*3/uL MPV (9.4-12.4) fL Immature Gran % (Auto) (0.0-0.4) % Neut % (Auto) (45-73) % Lymph % (Auto) (20-40) % [place] % (Auto) (2-11) % Eos % (Auto) (0-4) % Baso % (Auto) (0-2) % Lymph # (Auto) (1.2-4.9) X10*3/uL [place] # (Auto) (0.1-1.2) X10*3/uL Eos # (Auto) (0.0-0.4) X10*3/uL Baso # (Auto) (0.0-0.2) X10*3/uL Abs Immat Gran (auto) (0.00-0.03) X10*3/uL Absolute Neuts (auto) (2.0-8.3) X10*3/uL Absolute Nucleated RBC (0.0-0.012) X10*3/uL Nucleated RBC % (auto) (0.0-0.2) /100WBC PT (9.9-13.0) SEC INR (0.9-1.1) Sodium (135-145) mmol/L Potassium (3.3-5.1) mmol/L Chloride (96-108) mmol/L Carbon Dioxide (22-29) mmol/L Anion Gap (12-20) BUN (9-16) mg/dL Creatinine (0.5-1.4) mg/dL Estim Creat Clear Calc Estimated GFR Random Glucose (60-115) mg/dL Calcium (8.4-10.2) mg/dL Magnesium (1.6-2.6) mg/dL Total Bilirubin (0.0-1.0) mg/dL AST (5-37) U/L ALT (0-40) U/L Alkaline Phosphatase (39-117) U/L Troponin I High Sens 6.4 (<3.5-35.0) ng/L B-Natriuretic Peptide < 10 (<100) pg/mL Total Protein (6.5-8.0) g/dL Albumin (3.5-5.0) g/dL Lipase (8-78) U/L Urine Color YELLOW Urine Appearance CLEAR Urine pH 6.0 (5.0-8.0) Ur Specific [place] 1.025 (1.005-1.025) Urine Protein TRACE (NEG-TRACE) MG/DL Urine Glucose (UA) 500 H (NEG) MG/DL Urine Ketones NEG (NEG) MG/DL Urine Blood TRACE (NEG) Urine Nitrite NEG (NEG) Ur Leukocyte Esterase NEG (NEG) Urine RBC 1-4 (0) /HPF Urine WBC 0-2 (0-4) /HPF Ur Squamous Epith Cells TRACE /LPF Urine Bacteria NONE /LPF Discharge Plan Discharge Prescriptions: No Action hydromorphone 2 mg Tablet 2 mg PO Q6H PRN (Reason: Pain (Scale Score 4-6)) RF: 0 benazepril 10 mg Tablet 10 mg PO DAILY RF: 0 sertraline 50 mg Tablet 50 mg PO DAILY RF: 0 doxycycline hyclate 100 mg capsule 100 mg PO BID Qty: 10 RF: 0 gabapentin 300 mg Capsule 300 mg PO BEDTIME RF: 0 ondansetron 4 mg tablet,disintegrating 4 mg PO Q6H PRN (Reason: nausea and vomiting) Qty: 10 RF: 0 ibuprofen 800 mg tablet 800 mg PO Q8H PRN (Reason: pain) 14 Days Qty: 42 RF: 0 cyclobenzaprine 10 mg tablet 10 mg PO TID PRN (Reason: muscle spasm) 10 Days Qty: 30 RF: 0 atorvastatin 20 mg tablet 20 mg PO DAILY RF: 0 amlodipine 10 mg tablet 10 mg PO DAILY RF: 0 aspirin [Adult Low Dose Aspirin] 81 mg tablet,delayed release (DR/EC) 81 mg PO DAILY RF: 0 omeprazole 20 mg capsule,delayed release(DR/EC) 20 mg PO DAILY RF: 0 docusate sodium 100 mg capsule 100 mg PO DAILY RF: 0 metoprolol tartrate 50 mg tablet 50 mg PO TID RF: 0 cyclobenzaprine 10 mg tablet 10 mg PO BEDTIME RF: 0 dicyclomine 20 mg tablet 20 mg PO TID RF: 0 baclofen 10 mg tablet 10 mg PO TID RF: 0 tamsulosin [Flomax] 0.4 mg capsule 0.4 mg PO DAILY Qty: 30 RF: 0
--- NOTE | 2020-10-10 13:01 | ED_ITS ---
HPI - Nausea/Vomiting/Diarrhea General Chief complaint: Anxiety Stated complaint: anxiety Time Seen by Provider: 10/10/20 10:29 Source: patient Mode of arrival: ambulatory Limitations: no limitations History of Present Illness HPI Narrative: 49-year-old male with a past medical history of hypertension, hyperlipidemia, CKD, anxiety, GERD, h/o C.Diff 12/17/2019 (subsequently tested negative), sigmoid diverticulitis c perforation status post colectomy with Ammy procedure status post closure of colostomy here with multiple complaints and urinary tension presenting to the ED via EMS with complaints of sudden onset of nausea/vomiting and diffuse abd pain which exacerbated the patient's anxiety therefore he called EMS. He reports over the past month he has noticed that his abdomen appears more bloated and he feels like he has ?fluid in my belly when I shake it?. He denies any headaches, dizziness, change in vision, blood in his emesis, black emesis, chest pain, shortness of breath, dyspnea on exertion, orthopnea, palpitations, radiation of the abdominal pain to the back or anywhere else, diarrhea, constipation, black or bloody stools, lower extremity edema, recent travel, sick contacts or possible bad food exposure. Patient denies any other symptoms complaints or concerns at this time. Related Data Home Medications Medication Instructions Recorded Confirmed amlodipine 10 mg tablet 10 mg PO DAILY 12/28/19 03/24/20 aspirin 81 mg tablet,delayed 81 mg PO DAILY 12/28/19 03/24/20 release atorvastatin 20 mg tablet 20 mg PO DAILY 12/28/19 03/24/20 baclofen 10 mg tablet 10 mg PO TID 12/28/19 03/24/20 cyclobenzaprine 10 mg tablet 10 mg PO BEDTIME 12/28/19 03/24/20 dicyclomine 20 mg tablet 20 mg PO TID 12/28/19 03/24/20 docusate sodium 100 mg capsule 100 mg PO DAILY 12/28/19 03/24/20 metoprolol tartrate 50 mg tablet 50 mg PO TID 12/28/19 03/24/20 omeprazole 20 mg capsule,delayed 20 mg PO DAILY 12/28/19 03/24/20 release gabapentin 300 mg PO BEDTIME 01/07/20 03/24/20 benazepril 10 mg PO DAILY 02/16/20 03/24/20 hydromorphone 2 mg PO Q6H PRN 02/16/20 03/24/20 sertraline 50 mg PO DAILY 02/16/20 03/24/20 Previous Rx's Medication Instructions Recorded doxycycline hyclate 100 mg PO BID #10 cap 02/18/20 tamsulosin 0.4 mg capsule 0.4 mg PO DAILY #30 cap 03/24/20 ondansetron 4 mg PO Q6H PRN #10 tab 06/08/20 cyclobenzaprine 10 mg tablet 10 mg PO TID PRN 10 Days #30 tab 07/22/20 ibuprofen 800 mg tablet 800 mg PO Q8H PRN 14 Days #42 tab 07/22/20 acetaminophen [Tylenol Extra 1,000 mg PO QID PRN #14 tab 10/10/20 Strength] cyclobenzaprine 10 mg PO Q8H #10 tab 10/10/20 docusate sodium [Colace] 100 mg PO BID PRN #14 cap 10/10/20 ondansetron HCl [Zofran] 4 mg PO Q8H PRN #14 tab 10/10/20 oxycodone 5 mg PO BID PRN #10 tab 10/10/20 sennosides [Chocolate Laxative] 7.5 mg PO DAILY 5 Days #3 tab 10/10/20 Allergies Allergy/AdvReac Type Severity Reaction Status Date / Time morphine [MORPHINE] Allergy Unknown HIVES, rash Verified 07/22/20 15:20 Review of Systems Review of Systems: Constitutional : No Fever, No Chills, No Night Sweats, No Fatigue, No Malaise Cardiovascular : No Chest Pain, No SOB Respiratory : No Cough, No Sputum, No Wheezing, No Dyspnea Gastrointestinal : + Nausea, + Vomiting, No Diarrhea, + abdominal Pain, No Hematochezia, No Melena Genitourinary : No irregular bleeding, No Dysuria, No Urinary Frequency, No Hematuria,No Urinary Incontinence, No Urgency, No Flank Pain Musculoskeletal : No joint pain, No Myalgias, No Joint Swelling Skin : No Skin Lesions, No rash Neuro : No Weakness, No Numbness, No Paresthesias, No Loss of Consciousness, No Dizziness, No Headache Heme/Lymph: No Lymphadenopathy Endocrine : No Temperature Intolerance Yes all other systems are reviewed and are negative [facility] Past Medical History Attestation statement: The following information was validated with the patient. Medical History Anxiety Constipation GERD (gastroesophageal reflux disease) History of diverticulitis Hyperlipidemia Hypertension Mitral valve disease Right ankle pain Surgical History H/O mitral valve repair Status post Ammy procedure (10/21/19) Family History Family History Mother No problems noted. Father No problems noted. Social History Social History Household Members: Significant Other Housing: Apartment Are you a primary assurance services manager health care to a significant other at home: No Do you presently have visiting nurse or other home services: Yes ([facility]) Alcohol intake: current Alcohol intake frequency: a few times a week Alcohol type: beer Patient Tobacco Use Status: Never used Tobacco Second Hand Smoke Exposure: No Use of substances other than those prescribed or required for medical reasons: Yes Substance Use Type: Marijuana Advance Directives: Yes Advance Directives on File: Yes Advance Directives Date on File: 02/22/20 service: No Current occupational status: unemployed Physical Exam Vital Signs: Vital Signs: Last Vital Signs Temp 97.9 F 10/10/20 13:52 Pulse 73 10/10/20 13:52 Resp 18 10/10/20 13:52 BP 161/95 H 10/10/20 14:21 Pulse Ox 98 10/10/20 13:52 Body Mass Index 34.7 vital signs have been reviewed as normal and appeared to be correct. Blood pressure hypertensive 181/114. Heart rate normal. Respiration rate normal. Temperature normal. Oxygen saturation normal. Appearance: Alert. Oriented X3. No acute distress. Head: Normal external exam. Normocephalic. Eyes: PERRLA. EOMI. Conjunctiva and sclera normal. Eyelids normal. ENT: Pharynx normal. Uvula midline. Moist mucous membranes. Neck: Normal inspection. Neck supple. FROM. No adenopathy. No meningeal signs. CVS: Normal heart rate and rhythm. Heart sound normal. No murmurs noted. Pulses normal throughout. Respiratory: No respiratory distress. Painless inspiration. Breath sounds normal. No wheezes/rales/rhonchi noted. Chest nontender. No accessory muscle usage noted or decreased air movement noted. Abdomen: Soft and moderate tenderness to palpation diffusely although worse in the lower quadrants with guarding. Nondistended. No rigidity. Bowel sounds normal in all 4 quadrants. No distention noted. No organomegaly noted. No visible injury noted. No rebound tenderness. Negative Rovsing sign. Negative obturator's sign. Negative psoas sign. Negative Talley sign. Back: No CVA tenderness. Full range of motion noted. Skin: Skin warm and dry. Normal skin color. Normal skin turgor. No rashes/lesions/lacerations noted. Extremities: Extremities exhibit normal range of motion. Extremities nontender. Neuro: Oriented X 3. No motor deficit. No sensory deficit. Reflexes normal. Normal steady gait. Course Course Course Narrative: 11am 49-year-old male with a past medical history of hypertension, hyperlipidemia, CKD, anxiety, GERD, h/o C.Diff 12/17/2019 (subsequently tested negative), sigmoid diverticulitis c perforation status post colectomy with Ammy procedure stat us post closure of colostomy here with multiple complaints and urinary tension presenting to the ED via EMS with complaints of sudden onset of nausea/vomiting and diffuse abd pain which exacerbated the patient's anxiety therefore he called EMS. Plan: Labs, chest x-ray, EKG, CT scan abdomen and pelvis provide a L of IV fluid and re-evaluate. Reevaluation(s) Reevaluation #1: - patient with a white blood cell count at 16,000. Creatinine 1.54. Random glucose 204. AST/ALT/alkaline phosphate 47/85/32. Troponin elevated at 6.4 although patient appears to have a baseline elevated troponin. UA with 500 glucose otherwise no evidence of UTI. - chest x-ray within normal limits no acute processes were noted. - patient has a baseline leukocytosis since 2019 which is actually improved when compared to priors. Patient has a baseline elevated creatinine which is improved when compared to priors. - patient pending a repeat troponin at 02:20. - still awaiting CT scan abdomen pelvis IV contrast Time: 12:30 Reevaluation #2: - CT scan of abdomen and pelvis revealed mild constipation and stone in the kidneys otherwise no other acute processes appears that patient has a spasm to the and most suture line. - therefore will DC home with symptomatic treatment instructions to return if any new or worsening symptoms to follow up with primary care provider. Patient and family at bedside understand agree with this plan. Time: 15:33 MDM - Nausea/Vomiting/Diarrhea Medical Records Attestation: I reviewed the patient's medical records. Lab Data Attestation: I reviewed the patient's lab results. Result diagrams: 10/10/20 11:25 10/10/20 11:25 Labs: Lab Results 10/10/20 10/10/20 10/10/20 Range/Units 11:25 11:25 11:25 WBC 16.0 H (4.8-10.8) X10*3/uL RBC 5.47 (4.60-5.80) X10*6/uL Hgb 15.6 (14.0-18.0) g/dl Hct 48.1 (42-52) % MCV 87.9 (80-98) fL MCH 28.5 (27.0-33.0) pg MCHC 32.4 (31.0-36.0) g/dl RDW 15.5 (11.0-16.0) % Plt Count 294 (160-400) X10*3/uL MPV 11.3 (9.4-12.4) fL Immature Gran % (Auto) 1.0 H (0.0-0.4) % Neut % (Auto) 78.8 H (45-73) % Lymph % (Auto) 13.6 L (20-40) % [place] % (Auto) 5.4 (2-11) % Eos % (Auto) 0.9 (0-4) % Baso % (Auto) 0.3 (0-2) % Lymph # (Auto) 2.2 (1.2-4.9) X10*3/uL [place] # (Auto) 0.9 (0.1-1.2) X10*3/uL Eos # (Auto) 0.1 (0.0-0.4) X10*3/uL Baso # (Auto) 0.1 (0.0-0.2) X10*3/uL Abs Immat Gran (auto) 0.16 H (0.00-0.03) X10*3/uL Absolute Neuts (auto) 12.6 H (2.0-8.3) X10*3/uL Absolute Nucleated RBC 0.000 (0.0-0.012) X10*3/uL Nucleated RBC % (auto) 0.0 (0.0-0.2) /100WBC PT 12.1 (9.9-13.0) SEC INR 1.1 (0.9-1.1) Sodium 136 (135-145) mmol/L Potassium 4.7 D (3.3-5.1) mmol/L Chloride 103 (96-108) mmol/L Carbon Dioxide 24 (22-29) mmol/L Anion Gap 14 (12-20) BUN 13 (9-16) mg/dL Creatinine 1.54 H (0.5-1.4) mg/dL Estim Creat Clear Calc 64.1 Estimated GFR 48 Random Glucose 204 H D (60-115) mg/dL Calcium 9.0 (8.4-10.2) mg/dL Magnesium 2.1 (1.6-2.6) mg/dL Total Bilirubin 0.4 (0.0-1.0) mg/dL AST 47 H D (5-37) U/L ALT 85 H (0-40) U/L Alkaline Phosphatase 32 L (39-117) U/L Troponin I High Sens (<3.5-35.0) ng/L B-Natriuretic Peptide (<100) pg/mL Total Protein 7.7 (6.5-8.0) g/dL Albumin 3.9 (3.5-5.0) g/dL Lipase 20 (8-78) U/L Urine Color Urine Appearance Urine pH (5.0-8.0) Ur Specific [place] (1.005-1.025) Urine Protein (NEG-TRACE) MG/DL Urine Glucose (UA) (NEG) MG/DL Urine Ketones (NEG) MG/DL Urine Blood (NEG) Urine Nitrite (NEG) Ur Leukocyte Esterase (NEG) Urine RBC (0) /HPF Urine WBC (0-4) /HPF Ur Squamous Epith Cells /LPF Urine Bacteria /LPF 10/10/20 10/10/20 10/10/20 Range/Units 11:25 11:25 14:17 WBC (4.8-10.8) X10*3/uL RBC (4.60-5.80) X10*6/uL Hgb (14.0-18.0) g/dl Hct (42-52) % MCV (80-98) fL MCH (27.0-33.0) pg MCHC (31.0-36.0) g/dl RDW (11.0-16.0) % Plt Count (160-400) X10*3/uL MPV (9.4-12.4) fL Immature Gran % (Auto) (0.0-0.4) % Neut % (Auto) (45-73) % Lymph % (Auto) (20-40) % [place] % (Auto) (2-11) % Eos % (Auto) (0-4) % Baso % (Auto) (0-2) % Lymph # (Auto) (1.2-4.9) X10*3/uL [place] # (Auto) (0.1-1.2) X10*3/uL Eos # (Auto) (0.0-0.4) X10*3/uL Baso # (Auto) (0.0-0.2) X10*3/uL Abs Immat Gran (auto) (0.00-0.03) X10*3/uL Absolute Neuts (auto) (2.0-8.3) X10*3/uL Absolute Nucleated RBC (0.0-0.012) X10*3/uL Nucleated RBC % (auto) (0.0-0.2) /100WBC PT (9.9-13.0) SEC INR (0.9-1.1) Sodium (135-145) mmol/L Potassium (3.3-5.1) mmol/L Chloride (96-108) mmol/L Carbon Dioxide (22-29) mmol/L Anion Gap (12-20) BUN (9-16) mg/dL Creatinine (0.5-1.4) mg/dL Estim Creat Clear Calc Estimated GFR Random Glucose (60-115) mg/dL Calcium (8.4-10.2) mg/dL Magnesium (1.6-2.6) mg/dL Total Bilirubin (0.0-1.0) mg/dL AST (5-37) U/L ALT (0-40) U/L Alkaline Phosphatase (39-117) U/L Troponin I High Sens 6.4 6.4 (<3.5-35.0) ng/L B-Natriuretic Peptide < 10 (<100) pg/mL Total Protein (6.5-8.0) g/dL Albumin (3.5-5.0) g/dL Lipase (8-78) U/L Urine Color YELLOW Urine Appearance CLEAR Urine pH 6.0 (5.0-8.0) Ur Specific [place] 1.025 (1.005-1.025) Urine Protein TRACE (NEG-TRACE) MG/DL Urine Glucose (UA) 500 H (NEG) MG/DL Urine Ketones NEG (NEG) MG/DL Urine Blood TRACE (NEG) Urine Nitrite NEG (NEG) Ur Leukocyte Esterase NEG (NEG) Urine RBC 1-4 (0) /HPF Urine WBC 0-2 (0-4) /HPF Ur Squamous Epith Cells TRACE /LPF Urine Bacteria NONE /LPF Imaging Data CT scan abdomen pelvis IV contrast: Attestation: I personally reviewed and interpreted this imaging study as follows: Radiologist's impression: FINDINGS: LUNG BASES: Lung bases are clear. The heart size is normal. LIVER, GALLBLADDER, AND BILIARY TREE: The liver is normal in size, shape, and diffuse attenuation. No focal hepatic lesion or biliary ductal dilatation is present. The gallbladder is unremarkable with no evidence of radiopaque gallstones, gallbladder wall thickening, or obvious pericholecystic inflammatory changes. PANCREAS: Unremarkable. SPLEEN: Unremarkable. ADRENAL GLANDS: Unremarkable. KIDNEYS AND URETERS: The kidneys are normal in size, shape, and attenuation. There is a nonobstructive 4 mm radiopaque calculus midpole right kidney and a 5 mm cyst upper pole right kidney. No caliectasis or hydronephrosis seen in either kidney. BLADDER: The bladder is nondilated and appears unremarkable. GASTROINTESTINAL TRACT: There are annular sutures in sigmoid colon with widely patent lumen. There is a small area of annular thickening just distally in the sigmoid colon on axial image 75/3. This could be spasm. There is scattered stool and diverticuli seen in the colon without obstruction or diverticulitis. The small bowel loops are normal. Appendix is normal caliber. ABDOMINAL WALL: No evidence of hernia. There is ill-defined opacity left abdominal wall likely from subcutaneous injection. Correlate clinically. Small bilateral inguinal hernias containing fat. LYMPH NODES: There are small shotty lymph nodes in the aortocaval region measuring 1 cm on axial image 43/3. VASCULAR: Unremarkable. PELVIC VISCERA: Unremarkable. OSSEOUS STRUCTURES: No lytic or sclerotic process seen. CT/CT abdomen pelvis w con IMPRESSION: Anastomotic suture line along the proximal sigmoid colon, widely patent. Small area of annular thickening in the [id number] sigmoid colon on axial image 75/3. This could be spasm. Correlate clinically. A few scattered sigmoid and descending colon diverticuli but no evidence of diverticulitis. Mild constipation. Nonobstructive midpole radiopaque calculus and a small probable cyst upper pole right kidney. No hydronephrosis. Mild hepatic steatosis. Discharge Plan Discharge Clinical Impression: Acute anxiety, Constipation, Abdominal spasms Patient Disposition: Home, Self-Care Instructions: Constipation (ED), High Fiber Diet (ED) Prescriptions: New cyclobenzaprine 10 mg tablet 10 mg PO Q8H Qty: 10 RF: 0 Chocolate Laxative 15 mg tablet,chewable 7.5 mg PO DAILY 5 Days Qty: 3 RF: 0 ondansetron HCl [Zofran] 4 mg tablet 4 mg PO Q8H PRN (Reason: nausea and vomiting) Qty: 14 RF: 0 acetaminophen [Tylenol Extra Strength] 500 mg tablet 1,000 mg PO QID PRN (Reason: fever or pain) Qty: 14 RF: 0 oxycodone 5 mg tablet 5 mg PO BID PRN (Reason: pain) Qty: 10 RF: 0 docusate sodium [Colace] 100 mg capsule 100 mg PO BID PRN (Reason: Constipation) Qty: 14 RF: 0 No Action hydromorphone 2 mg Tablet 2 mg PO Q6H PRN (Reason: Pain (Scale Score 4-6)) RF: 0 benazepril 10 mg Tablet 10 mg PO DAILY RF: 0 sertraline 50 mg Tablet 50 mg PO DAILY RF: 0 doxycycline hyclate 100 mg capsule 100 mg PO BID Qty: 10 RF: 0 gabapentin 300 mg Capsule 300 mg PO BEDTIME RF: 0 ondansetron 4 mg tablet,disintegrating 4 mg PO Q6H PRN (Reason: nausea and vomiting) Qty: 10 RF: 0 ibuprofen 800 mg tablet 800 mg PO Q8H PRN (Reason: pain) 14 Days Qty: 42 RF: 0 cyclobenzaprine 10 mg tablet 10 mg PO TID PRN (Reason: muscle spasm) 10 Days Qty: 30 RF: 0 atorvastatin 20 mg tablet 20 mg PO DAILY RF: 0 amlodipine 10 mg tablet 10 mg PO DAILY RF: 0 aspirin [Adult Low Dose Aspirin] 81 mg tablet,delayed release (DR/EC) 81 mg PO DAILY RF: 0 omeprazole 20 mg capsule,delayed release(DR/EC) 20 mg PO DAILY RF: 0 docusate sodium 100 mg capsule 100 mg PO DAILY RF: 0 metoprolol tartrate 50 mg tablet 50 mg PO TID RF: 0 cyclobenzaprine 10 mg tablet 10 mg PO BEDTIME RF: 0 dicyclomine 20 mg tablet 20 mg PO TID RF: 0 baclofen 10 mg tablet 10 mg PO TID RF: 0 tamsulosin [Flomax] 0.4 mg capsule 0.4 mg PO DAILY Qty: 30 RF: 0 Referrals: Physician,Unknown [Primary Care Provider] - 2 days (your pcp) Stand Alone Forms: Work/School Release Print Language: Danish
[2020-10-10 13:30] VITALS: BP 153/103; PULSE 95; RESP 20; TEMP 36.6; O2SAT 97
[2020-10-10 13:52] VITALS: BP 175/115; PULSE 73; RESP 18; TEMP 36.6; O2SAT 98
[2020-10-10] MEDS: ondansetron HCL 4 MG/2 ML VIAL IVPUSH (14:19)
[2020-10-10] MEDS: HYDROmorphone HCl 1 MG/ML SYRINGE IVPUSH ×2 (14:19→15:51)
[2020-10-10 14:21] VITALS: BP 161/95
[2020-10-10 14:52] LABS: Troponin-I High Sensitivity 6.4 ng/L (<3.5-35.0)
[2020-10-10 15:54] VITALS: BP 159/100; PULSE 71
== END 2020-10-10 15:59 | disposition home or self-care (01) ==
PROVIDERS: Physician Assistant Medical; Emergency Provider Emergency Medicine
DX: F41.9 Anxiety disorder, unspecified (principal); K59.00 Constipation, unspecified; R25.2 Cramp and spasm; I12.9 Hypertensive chronic kidney disease with stage 1 through stage 4 chronic kidney disease, or unspecified chronic kidney disease; N18.9 Chronic kidney disease, unspecified; N20.0 Calculus of kidney; Z79.82 Long term (current) use of aspirin; Z79.899 Other long term (current) drug therapy
CPT/HCPCS: 36415; 71046; 74177; 80053; 81001; 83690; 83735; 83880; 84484; 85025; 85610; 96374; 96375; 96376; 99284; J1170; J2405; Q9967

== ENCOUNTER 2020-11-22 13:11 | Emergency (ER) | payer OTHER, SELFPAY ==
[2020-11-22 13:42] VITALS: BP 197/134; PULSE 97; RESP 16; TEMP 37; O2SAT 98; BMI 35.3
[2020-11-22 15:39] LABS: MANUAL DIFF FLAG NO
[2020-11-22 15:44] LABS: Basophils Absolute Auto 0.1 X10*3/uL (0.0-0.2); Basophils Percent Auto 0.6 % (0-2); Eosinophils Absolute Auto 0.1 X10*3/uL (0.0-0.4); Eosinophils Percent Auto 0.9 % (0-4); Hematocrit 49.1 % (42-52); Hemoglobin 16.2 g/dl (14.0-18.0); Imm Gran Abs Auto 0.14 X10*3/uL (0.00-0.03); Imm Gran Pct Auto 0.9 % (0.0-0.4); Lymphocytes Absolute Auto 3.2 X10*3/uL (1.2-4.9); Lymphocytes Percent Auto 20.3 % (20-40); Mean Corpuscular Hemoglobin 28.6 pg (27.0-33.0); Mean Corpuscular Volume 86.6 fL (80-98); Monocytes Absolute Auto 0.8 X10*3/uL (0.1-1.2); Monocytes Percent Auto 5.3 % (2-11); Neutrophils Absolute Auto 11.2 X10*3/uL (2.0-8.3); Platelet Count 242 X10*3/uL (160-400); Red Blood Count 5.67 X10*6/uL (4.60-5.80); Red Cell Distribution Width 14.4 % (11.0-16.0); White Blood Count 15.6 X10*3/uL (4.8-10.8)
[2020-11-22 15:46] LABS: OBS Int Ctl Valid YES; OBS1 NEGATIVE (NEGATIVE)
--- NOTE | 2020-11-22 16:00 | ED_ITS ---
HPI - General Adult General Chief complaint: Back Pain/Injury Stated complaint: back pain Time Seen by Provider: 11/22/20 15:05 History of Present Illness HPI narrative: Patient with 2 complaints, 1st complaint is low back pain after lifting a box and now has pain in the low back on the left side with no radiation no numbness weakness or tingling no abdominal pain no chest pain no changes to bowel or bladder Second complaint is he has had several episodes over the last week most recently 3 or 4 days ago where he had bright red blood in the toilet, never any black tarry stool, he is not dizzy or weak no abdominal pain and the last episode was several days ago, he says his stool is normal in color now Related Data Home Medications Medication Instructions Recorded Confirmed amlodipine 10 mg tablet 10 mg PO DAILY 12/28/19 03/24/20 aspirin 81 mg tablet,delayed 81 mg PO DAILY 12/28/19 03/24/20 release (Adult Low Dose Aspirin) atorvastatin 20 mg tablet 20 mg PO DAILY 12/28/19 03/24/20 baclofen 10 mg tablet 10 mg PO TID 12/28/19 03/24/20 cyclobenzaprine 10 mg tablet 10 mg PO BEDTIME 12/28/19 03/24/20 dicyclomine 20 mg tablet 20 mg PO TID 12/28/19 03/24/20 docusate sodium 100 mg capsule 100 mg PO DAILY 12/28/19 03/24/20 metoprolol tartrate 50 mg tablet 50 mg PO TID 12/28/19 03/24/20 omeprazole 20 mg capsule,delayed 20 mg PO DAILY 12/28/19 03/24/20 release gabapentin 300 mg capsule 300 mg PO BEDTIME 01/07/20 03/24/20 benazepril 10 mg tablet 10 mg PO DAILY 02/16/20 03/24/20 hydromorphone 2 mg tablet 2 mg PO Q6H PRN 02/16/20 03/24/20 sertraline 50 mg tablet 50 mg PO DAILY 02/16/20 03/24/20 Previous Rx's Medication Instructions Recorded doxycycline hyclate 100 mg capsule 100 mg PO BID #10 cap 02/18/20 tamsulosin 0.4 mg capsule (Flomax) 0.4 mg PO DAILY #30 cap 03/24/20 ondansetron 4 mg disintegrating 4 mg PO Q6H PRN #10 tab 06/08/20 tablet cyclobenzaprine 10 mg tablet 10 mg PO TID PRN 10 Days #30 tab 07/22/20 ibuprofen 800 mg tablet 800 mg PO Q8H PRN 14 Days #42 tab 07/22/20 acetaminophen 500 mg tablet 1,000 mg PO QID PRN #14 tab 10/10/20 (Tylenol Extra Strength) cyclobenzaprine 10 mg tablet 10 mg PO Q8H #10 tab 10/10/20 docusate sodium 100 mg capsule 100 mg PO BID PRN #14 cap 10/10/20 (Colace) ondansetron HCl 4 mg tablet 4 mg PO Q8H PRN #14 tab 10/10/20 (Zofran) oxycodone 5 mg tablet 5 mg PO BID PRN #10 tab 10/10/20 sennosides 15 mg chewable tablet 7.5 mg PO DAILY 5 Days #3 tab 10/10/20 (Chocolate Laxative) acetaminophen 500 mg tablet 1,000 mg PO QID PRN #30 tab 11/22/20 cyclobenzaprine 5 mg tablet 5 mg PO TID PRN #10 tab 11/22/20 oxycodone 5 mg tablet 5 mg PO Q6H PRN #14 tab 11/22/20 Allergies Allergy/AdvReac Type Severity Reaction Status Date / Time morphine [MORPHINE] Allergy Unknown HIVES, rash Verified 07/22/20 15:20 Review of Systems Review of Systems: Positive for back pain and intermittent red blood in the stool Negatives are no fever no chills no dizziness no weakness no fainting no feeling faint no headache no neck pain no chest pain no shortness of breath no abdominal pain no diarrhea no black stool no dysuria no joint pains no skin rash es Yes all other systems are reviewed and are negative PMFSH Past Medical History Source: nursing notes reviewed Medical History Anxiety Constipation GERD (gastroesophageal reflux disease) History of diverticulitis Hyperlipidemia Hypertension Mitral valve disease Right ankle pain Surgical History H/O mitral valve repair Status post Ammy procedure (10/21/19) Family History Family History Mother No problems noted. Father No problems noted. Social History Social History Household Members: Significant Other Housing: Apartment Are you a primary child care lead teacher to a significant other at home: No Do you presently have visiting nurse or other home services: Yes ([facility]) Alcohol intake: current Alcohol intake frequency: a few times a week Alcohol type: beer Patient Tobacco Use Status: Never used Tobacco Second Hand Smoke Exposure: No Substance Use Type: Marijuana Advance Directives Date on File: 02/22/20 service: No Current occupational status: unemployed Physical Exam Vital Signs: Vital Signs: Last Vital Signs Temp 97.6 F 11/22/20 16:02 Pulse 91 11/22/20 16:02 Resp 18 11/22/20 16:02 BP 167/130 H 11/22/20 16:02 Pulse Ox 98 11/22/20 16:02 Body Mass Index 35.3 General appearance no acute distress, there is no pallor The eyes are anicteric without pallor The pharynx is clear with moist mucous membranes no redness swelling or exudate Neck is supple Chest clear to auscultation bilateral The abdomen is soft and nontender The rectal exam did not reveal any mass, stool on the glove was normal brown color no black stool no evidence of blood no purplish color Extremities full range of motion x4 Skin there is no rash no petechiae no purpura The back had lower lumbar paraspinal tenderness and pain reproduced with movement, there is no focal bony tenderness no CVA tenderness, skin was normal with no wounds or rash or redness Neuro no focal motor or sensory deficits Course Course Course Narrative: Hemoglobin hematocrit were normal , guaiac testing now was negative with guaiac negative as well as normal-appearing stool on the glove no tarry stool no blood on the glove, no masses palpated He does have a GI doctor he will follow with both primary doctor and GI doctor for intermittent blood in the stool For his musculoskeletal back pain he is prescribed analgesics and a few days off work and will follow with primary doctor Medical Decision Making Lab Data Lab results reviewed: Yes I reviewed the patient's lab results. Result diagrams: 11/22/20 15:27 Labs: Lab Results 08/24/21 08/24/21 Range/Units 15:27 15:41 WBC 15.6 H (4.8-10.8) X10*3/uL RBC 5.67 (4.60-5.80) X10*6/uL Hgb 16.2 (14.0-18.0) g/dl Hct 49.1 (42-52) % MCV 86.6 (80-98) fL MCH 28.6 (27.0-33.0) pg MCHC 33.0 (31.0-36.0) g/dl RDW 14.4 (11.0-16.0) % Plt Count 242 (160-400) X10*3/uL MPV 12.0 (9.4-12.4) fL Immature Gran % (Auto) 0.9 H (0.0-0.4) % Neut % (Auto) 72.0 (45-73) % Lymph % (Auto) 20.3 (20-40) % [place] % (Auto) 5.3 (2-11) % Eos % (Auto) 0.9 (0-4) % Baso % (Auto) 0.6 (0-2) % Lymph # (Auto) 3.2 (1.2-4.9) X10*3/uL [place] # (Auto) 0.8 (0.1-1.2) X10*3/uL Eos # (Auto) 0.1 (0.0-0.4) X10*3/uL Baso # (Auto) 0.1 (0.0-0.2) X10*3/uL Abs Immat Gran (auto) 0.14 H (0.00-0.03) X10*3/uL Absolute Neuts (auto) 11.2 H (2.0-8.3) X10*3/uL Absolute Nucleated RBC 0.000 (0.0-0.012) X10*3/uL Nucleated RBC % (auto) 0.0 (0.0-0.2) /100WBC Stool Occult Blood NEGATIVE (NEGATIVE) Discharge Plan Discharge Clinical Impression: GI bleeding, Back strain Patient Disposition: Home, Self-Care Additional Instructions: Our workup today for your rectal bleeding showed no bleeding today and you have not become anemic so the plan is to follow closely with your GI doctor and primary doctor, you may need colonoscopy If you develop any further bleeding or dizziness or weakness or abdominal pain or vomiting or any worse condition return to the ER Do not take Motrin or Naprosyn as these medications can cause worsening bleeding The back appears to be strained muscles in the back and so we are treating with pain killer and muscle relaxer For this problem follow with primary doctor for physical therapy if needed Return to the ER any time any worse condition or any concerns blood pressure was high in the emergency room so we recommend you take her medication as prescribed but also follow closely with primary doctor to be sure her medications are working to control high blood pressure Prescriptions: New acetaminophen 500 mg tablet 1,000 mg PO QID PRN (Reason: pain) Qty: 30 RF: 0 oxycodone 5 mg tablet 5 mg PO Q6H PRN (Reason: pain) Qty: 14 RF: 0 cyclobenzaprine 5 mg tablet 5 mg PO TID PRN (Reason: muscle spasm) Qty: 10 RF: 0 No Action hydromorphone 2 mg Tablet 2 mg PO Q6H PRN (Reason: Pain (Scale Score 4-6)) RF: 0 benazepril 10 mg Tablet 10 mg PO DAILY RF: 0 sertraline 50 mg Tablet 50 mg PO DAILY RF: 0 doxycycline hyclate 100 mg capsule 100 mg PO BID Qty: 10 RF: 0 gabapentin 300 mg Capsule 300 mg PO BEDTIME RF: 0 ondansetron 4 mg tablet,disintegrating 4 mg PO Q6H PRN (Reason: nausea and vomiting) Qty: 10 RF: 0 cyclobenzaprine 10 mg tablet 10 mg PO Q8H Qty: 10 RF: 0 Chocolate Laxative 15 mg tablet,chewable 7.5 mg PO DAILY 5 Days Qty: 3 RF: 0 ondansetron HCl [Zofran] 4 mg tablet 4 mg PO Q8H PRN (Reason: nausea and vomiting) Qty: 14 RF: 0 acetaminophen [Tylenol Extra Strength] 500 mg tablet 1,000 mg PO QID PRN (Reason: fever or pain) Qty: 14 RF: 0 oxycodone 5 mg tablet 5 mg PO BID PRN (Reason: pain) Qty: 10 RF: 0 docusate sodium [Colace] 100 mg capsule 100 mg PO BID PRN (Reason: Constipation) Qty: 14 RF: 0 ibuprofen 800 mg tablet 800 mg PO Q8H PRN (Reason: pain) 14 Days Qty: 42 RF: 0 cyclobenzaprine 10 mg tablet 10 mg PO TID PRN (Reason: muscle spasm) 10 Days Qty: 30 RF: 0 atorvastatin 20 mg tablet 20 mg PO DAILY RF: 0 amlodipine 10 mg tablet 10 mg PO DAILY RF: 0 aspirin [Adult Low Dose Aspirin] 81 mg tablet,delayed release (DR/EC) 81 mg PO DAILY RF: 0 omeprazole 20 mg capsule,delayed release(DR/EC) 20 mg PO DAILY RF: 0 docusate sodium 100 mg capsule 100 mg PO DAILY RF: 0 metoprolol tartrate 50 mg tablet 50 mg PO TID RF: 0 cyclobenzaprine 10 mg tablet 10 mg PO BEDTIME RF: 0 dicyclomine 20 mg tablet 20 mg PO TID RF: 0 baclofen 10 mg tablet 10 mg PO TID RF: 0 tamsulosin [Flomax] 0.4 mg capsule 0.4 mg PO DAILY Qty: 30 RF: 0 Stand Alone Forms: Work/School Release Interventions: ED Discharge Assessment Last Done: 11/22/20 16:18 Discharge Date/Time: 11/22/20 16:22
[2020-11-22 16:02] VITALS: BP 167/130; PULSE 91; RESP 18; TEMP 36.4; O2SAT 98
== END 2020-11-22 16:22 | disposition home or self-care (01) ==
PROVIDERS: Physician Assistant Medical; Emergency Provider Emergency Medicine; PCP Internal Medicine
DX: S39.012A Strain of muscle, fascia and tendon of lower back, initial encounter (principal); X50.0XXA Overexertion from strenuous movement or load, initial encounter; K92.2 Gastrointestinal hemorrhage, unspecified; I10 Essential (primary) hypertension; E78.5 Hyperlipidemia, unspecified; Z79.82 Long term (current) use of aspirin; Z79.02 Long term (current) use of antithrombotics/antiplatelets; Z79.899 Other long term (current) drug therapy; Z95.2 Presence of prosthetic heart valve; Y93.9 Activity, unspecified; Y92.9 Unspecified place or not applicable; Y99.9 Unspecified external cause status
CPT/HCPCS: 36415; 82272; 85025; 99283; 99284

== ENCOUNTER 2020-12-13 09:08 | Observation (INO) | payer OTHER, SELFPAY ==
[2020-12-13] VITALS (8 sets, daily range): BP systolic 173–200; BP diastolic 103–126; PULSE 95–108; RESP 18–20; TEMP 36.4–36.8; O2SAT 93–96; BMI 38.0
--- NOTE | 2020-12-13 | ECG_ITS ---
Test Reason : PALPS Blood Pressure : / mmHG Vent. Rate : 105 BPM Atrial Rate : 105 BPM P-R Int : 152 ms QRS Dur : 098 ms QT Int : 382 ms P-R-T Axes : 033 046 053 degrees QTc Int : 504 ms Sinus tachycardia Nonspecific ST and T wave abnormality Abnormal ECG When compared with ECG of 14-SEP-2020 10:18, Heart rate has increased Nonspecific ST and T wave abnormality is now Present Referred By: Daniel Rdz Electronically Signed By:KEVIN POMPA
--- NOTE | ~2020-12-13 | CT_ITS ---
EXAMINATION: CT ABDOMEN AND PELVIS WITHOUT CONTRAST CLINICAL INFORMATION: Diverticular lead COMPARISON: Previous CT of the abdomen and pelvis September 2020 TECHNIQUE: Multidetector volumetric imaging was performed from the superior aspect of the liver through the pubic symphysis. Sagittal and coronal reformatted images were obtained on the technologist's workstation. This CT examination was performed using dose optimization techniques as appropriate, variously including the following: *Automated exposure control *Adjustment of mA and/or kV according to patient size (this includes techniques or standardized protocols for targeted exams where dose is matched to indication/reason for exam; i.e. extremities or head) *Use of iterative reconstruction technique DLP: 861 mGy-cm FINDINGS: LUNG BASES: The visualized lung bases are unremarkable. LIVER, GALLBLADDER, AND BILIARY TREE: The liver is low in attenuation suggestive of fatty infiltration. Liver slightly enlarged. No focal liver lesion or biliary duct dilatation. The gallbladder is normal. PANCREAS: Unremarkable. SPLEEN: Unremarkable. ADRENAL GLANDS: Unremarkable. KIDNEYS AND URETERS: There is a 2 mm stone in the lower pole of the right kidney. The kidneys are otherwise unremarkable. BLADDER: Unremarkable. GASTROINTESTINAL TRACT: There are postsurgical changes to the sigmoid colon. There is evidence of diverticulosis of the colon. No evidence of diverticulitis is seen. Small and large bowel is otherwise unremarkable. The appendix is unremarkable. The stomach is unremarkable. ABDOMINAL WALL: Postsurgical changes to the anterior abdominal wall. There is diastasis of the rectus muscles. There are small umbilical hernias containing fat. LYMPH NODES: Normal. VASCULAR: Unremarkable. PELVIC VISCERA: Unremarkable. OSSEOUS STRUCTURES: There are degenerative changes at the hip joints. CT/CT abdomen pelvis wo con IMPRESSION: Diverticulosis of the colon. No evidence of diverticulitis. Fatty liver. Small nonobstructing right renal stone.
--- NOTE | 2020-12-13 09:34 | ED.GIBLEED ---
HPI - GI Bleed General Chief complaint: Arrhythmia/Palpitations Stated complaint: RECTAL BLEEDING X'S 1 DAY Time Seen by Provider: 12/13/20 09:17 Source: patient Mode of arrival: EMS Limitations: no limitations History of Present Illness HPI Narrative: Patient with history of diverticulitis diverticular bleed status post bowel resection 2019 comes here with pain in the left lower abdomen since yesterday with rectal bleeding patient had 3 times bowel movements with mostly blood bright red with small amount of clots. Also have nausea no vomiting no abdominal distension pain and symptoms seems to be same but what he had last year when he had diverticular bleed. No fever no chills no shortness of breath Related Data Home Medications Medication Instructions Recorded Confirmed aspirin 81 mg tablet,delayed 81 mg PO DAILY 12/28/19 03/24/20 release (Adult Low Dose Aspirin) atorvastatin 20 mg tablet 20 mg PO DAILY 12/28/19 12/13/20 gabapentin 300 mg capsule 300 mg PO BEDTIME 01/07/20 12/13/20 sertraline 50 mg tablet 50 mg PO DAILY 02/16/20 12/13/20 dapagliflozin 10 mg tablet 10 mg PO DAILY 12/13/20 12/13/20 (Farxiga) Previous Rx's Medication Instructions Recorded docusate sodium 100 mg capsule 100 mg PO BID PRN #14 cap 10/10/20 (Colace) acetaminophen 500 mg tablet 1,000 mg PO QID PRN #30 tab 11/22/20 Allergies Allergy/AdvReac Type Severity Reaction Status Date / Time morphine [MORPHINE] Allergy Unknown HIVES, rash Verified 07/22/20 15:20 Review of Systems Review of Systems: Yes all other systems are reviewed and are negative [facility] Past Medical History Medical History Anxiety Constipation GERD (gastroesophageal reflux disease) History of diverticulitis Hyperlipidemia Hypertension Mitral valve disease Right ankle pain Surgical History H/O mitral valve repair Status post Ammy procedure (10/21/19) Family History Family History Mother No problems noted. Father No problems noted. Social History Social History Household Members: Significant Other Housing: Apartment Are you a primary home health care case manager to a significant other at home: No Do you presently have visiting nurse or other home services: Yes ([facility]) Alcohol intake: current Alcohol intake frequency: a few times a week Alcohol type: beer Patient Tobacco Use Status: Never used Tobacco Second Hand Smoke Exposure: No Use of substances other than those prescribed or required for medical reasons: No Substance Use Type: Marijuana Advance Directives: Yes Advance Directives on File: Yes Advance Directives Date on File: 02/22/20 service: No Current occupational status: unemployed Physical Exam Vital Signs: Vital Signs: Last Vital Signs Temp 98.2 F 12/13/20 09:22 Pulse 103 H 12/13/20 14:01 Resp 18 12/13/20 14:01 BP 176/118 H 12/13/20 14:01 Pulse Ox 95 12/13/20 14:01 Body Mass Index 38.0 Appearance: Alert. Oriented X3. No acute distress. Eyes: PERRLA, no pallor or icterus ENT: Pharynx normal. Oral Mucosa moist Neck: Normal inspection. Neck supple. CVS: Normal heart rate and rhythm. Pulses normal. Respiratory: No respiratory distress. Equal air entry bilateral, no wheezing/rales/rhonchi Abdomen: Soft , tenderness left lower quadrant no rebound tenderness or guarding Bowel sounds are present, no mass palpable, no CVA tenderness Rectal: Bright red blood+ on finger guaiac-positive Skin: Skin warm and dry. Normal skin color. Normal skin turgor. Extremities: No lower extremity edema. No calf tenderness Neuro: Oriented X 3. MDM - GI Bleed MDM Narrative Medical decision making narrative: Patient with rectal bleed with history of diverticulitis CT scan negative for diverticulitis but showed diverticulosis. H&H and vitals are stable , no active bleed in the ER Case discussed Dr. Echevarria advised to patient keep the patient for observation for possible sigmoidoscopy/colonoscopy if bleeding continues Differential Diagnosis Differential diagnosis: Likely Lower gastrointestinal hemorrhage Medical Records Attestation: I reviewed the patient's medical records. Lab Data Attestation: I reviewed the patient's lab results. Result diagrams: 12/13/20 09:57 12/13/20 12:52 Labs: Lab Results 09/12/13/20 12/13/20 Range/Units 09:57 09:57 12:44 WBC 10.5 (4.8-10.8) X10*3/uL RBC 5.97 H (4.60-5.80) X10*6/uL Hgb 17.5 (14.0-18.0) g/dl Hct 52.0 (42-52) % MCV 87.1 (80-98) fL MCH 29.3 (27.0-33.0) pg MCHC 33.7 (31.0-36.0) g/dl RDW 14.6 (11.0-16.0) % Plt Count 232 (160-400) X10*3/uL MPV Not Reportable Immature Gran % (Auto) 0.9 H (0.0-0.4) % Neut % (Auto) 75.1 H (45-73) % Lymph % (Auto) 18.3 L (20-40) % [place] % (Auto) 4.4 (2-11) % Eos % (Auto) 0.8 (0-4) % Baso % (Auto) 0.5 (0-2) % Lymph # (Auto) 1.9 (1.2-4.9) X10*3/uL [place] # (Auto) 0.5 (0.1-1.2) X10*3/uL Eos # (Auto) 0.1 (0.0-0.4) X10*3/uL Baso # (Auto) 0.1 (0.0-0.2) X10*3/uL Abs Immat Gran (auto) 0.09 H (0.00-0.03) X10*3/uL Absolute Neuts (auto) 7.9 (2.0-8.3) X10*3/uL Absolute Nucleated RBC 0.000 (0.0-0.012) X10*3/uL Nucleated RBC % (auto) 0.0 (0.0-0.2) /100WBC Smear Tech's Comments VERIFIED PT (9.9-13.0) SEC INR (0.9-1.1) Sodium (135-145) mmol/L Potassium (3.3-5.1) mmol/L Chloride (96-108) mmol/L Carbon Dioxide (22-29) mmol/L Anion Gap (12-20) BUN (9-16) mg/dL Creatinine (0.5-1.4) mg/dL Estim Creat Clear Calc Estimated GFR POC Glucose 185 H (60-115) mg/dL Random Glucose (60-115) mg/dL Calcium (8.4-10.2) mg/dL Total Bilirubin (0.0-1.0) mg/dL Direct Bilirubin (0.0-0.5) mg/dL AST (5-37) U/L ALT (0-40) U/L Alkaline Phosphatase (39-117) U/L Total Protein (6.5-8.0) g/dL Albumin (3.5-5.0) g/dL COVID-19 (CLAIRE) Negative (Negative) COVID-19 Clin Com See Note Blood Type Antibody Screen 12/13/20 12/13/20 12/13/20 Range/Units 12:52 13:00 14:06 WBC (4.8-10.8) X10*3/uL RBC (4.60-5.80) X10*6/uL Hgb (14.0-18.0) g/dl Hct (42-52) % MCV (80-98) fL MCH (27.0-33.0) pg MCHC (31.0-36.0) g/dl RDW (11.0-16.0) % Plt Count (160-400) X10*3/uL MPV Immature Gran % (Auto) (0.0-0.4) % Neut % (Auto) (45-73) % Lymph % (Auto) (20-40) % [place] % (Auto) (2-11) % Eos % (Auto) (0-4) % Baso % (Auto) (0-2) % Lymph # (Auto) (1.2-4.9) X10*3/uL [place] # (Auto) (0.1-1.2) X10*3/uL Eos # (Auto) (0.0-0.4) X10*3/uL Baso # (Auto) (0.0-0.2) X10*3/uL Abs Immat Gran (auto) (0.00-0.03) X10*3/uL Absolute Neuts (auto) (2.0-8.3) X10*3/uL Absolute Nucleated RBC (0.0-0.012) X10*3/uL Nucleated RBC % (auto) (0.0-0.2) /100WBC Smear Tech's Comments PT 11.8 (9.9-13.0) SEC INR 1.0 (0.9-1.1) Sodium 138 (135-145) mmol/L Potassium 4.1 (3.3-5.1) mmol/L Chloride 107 (96-108) mmol/L Carbon Dioxide 20 L (22-29) mmol/L Anion Gap 15 (12-20) BUN 10 (9-16) mg/dL Creatinine 1.43 H (0.5-1.4) mg/dL Estim Creat Clear Calc 72.4 Estimated GFR 53 POC Glucose (60-115) mg/dL Random Glucose 201 H (60-115) mg/dL Calcium 9.0 (8.4-10.2) mg/dL Total Bilirubin 0.8 (0.0-1.0) mg/dL Direct Bilirubin 0.3 (0.0-0.5) mg/dL AST 97 H (5-37) U/L ALT 109 H (0-40) U/L Alkaline Phosphatase 42 D (39-117) U/L Total Protein 7.5 (6.5-8.0) g/dL Albumin 4.0 (3.5-5.0) g/dL COVID-19 (CLAIRE) (Negative) COVID-19 Clin Com Blood Type A Positive Antibody Screen NEGATIVE Discharge Plan Discharge Clinical Impression: Hematochezia, Diverticulosis Patient Disposition: Admitted As Inpatient
[2020-12-13] MEDS: 0.9 % Sodium Chloride 1,000 ML 999 ML IVCONT (10:00)
[2020-12-13] MEDS: ondansetron HCL 4 MG/2 ML VIAL IVPUSH (10:00)
[2020-12-13] MEDS: HYDROmorphone HCl 1 MG/ML SYRINGE IVPUSH (10:00)
[2020-12-13 10:36] LABS: COVID-19 Test Negative (Negative)
[2020-12-13 10:45] LABS: Imm Gran Pct Auto 0.9 % (0.0-0.4); MANUAL DIFF FLAG SCAN; Mean Corpuscular Volume 87.1 fL (80-98); Red Blood Count 5.97 X10*6/uL (4.60-5.80); Red Cell Distribution Width 14.6 % (11.0-16.0); SCAN SMEAR FLAG 1
[2020-12-13 10:47] LABS: Basophils Absolute Auto 0.1 X10*3/uL (0.0-0.2); Basophils Percent Auto 0.5 % (0-2); Eosinophils Absolute Auto 0.1 X10*3/uL (0.0-0.4); Eosinophils Percent Auto 0.8 % (0-4); Hemoglobin 17.5 g/dl (14.0-18.0); Imm Gran Abs Auto 0.09 X10*3/uL (0.00-0.03); Lymphocytes Absolute Auto 1.9 X10*3/uL (1.2-4.9); Lymphocytes Percent Auto 18.3 % (20-40); Mean Corpuscular HGB Conc 33.7 g/dl (31.0-36.0); Monocytes Absolute Auto 0.5 X10*3/uL (0.1-1.2); Monocytes Percent Auto 4.4 % (2-11); Neutrophils Absolute Auto 7.9 X10*3/uL (2.0-8.3); Neutrophils Percent Auto 75.1 % (45-73); PLT CLUMP 1
[2020-12-13 10:55] LABS: PLT ABN DIST 1
[2020-12-13 10:56] LABS: Mean Corpuscular Hemoglobin 29.3 pg (27.0-33.0)
[2020-12-13 11:30] LABS: Platelet Count 232 X10*3/uL (160-400); White Blood Count 10.5 X10*3/uL (4.8-10.8)
[2020-12-13 12:56] LABS: Glucose, Whole Blood 185 mg/dL (60-115)
[2020-12-13 13:16] LABS: Prothrombin Time 11.8 SEC (9.9-13.0)
[2020-12-13 13:23] LABS: Alanine Aminotransferase 109 U/L (0-40); Alkaline Phosphatase 42 U/L (39-117); Anion Gap 15 (12-20); Aspartate Amino Transferase 97 U/L (5-37); Bilirubin Direct 0.3 mg/dL (0.0-0.5); Bilirubin Total 0.8 mg/dL (0.0-1.0); Blood Urea Nitrogen 10 mg/dL (9-16); Carbon Dioxide 20 mmol/L (22-29); Chloride 107 mmol/L (96-108); Creatinine Clr Calc Pharmacy 72.4; Estimated Glomerular Filt Rate 53; Glucose Random 201 mg/dL (60-115); Potassium 4.1 mmol/L (3.3-5.1); Sodium 138 mmol/L (135-145); Total Protein 7.5 g/dL (6.5-8.0)
--- NOTE | 2020-12-13 14:21 | PM.IMHP ---
History of Present Illness Date of Service: 12/13/20 Chief Complaint: lower gi bleed This is a 50-year-old male with a past medical history as outlined below who presents to the hospital with several bowel movements with bright red blood which began on the day prior to ED arrival. Patient reports that on the day prior to arrival, he noticed some lower abdominal cramping but did much of it. Later on when he was moving his bowels he noticed that there was blood on the toilet paper as well as in the toilet. This happened several more times and so this morning he presented to the emergency room. Of note, the patient has an extensive intra-abdominal history with recurrent diverticulitis with perforation. He is status post Ammy procedure in the past with colostomy which has been reversed about 1 year ago in December 2019. The patient himself denies any straining or recent constipation. He denies any nausea or vomiting. He denies any fevers or chills. He does not report eating anything out of the ordinary for him. He does report crampy lower abdominal pain. Upon arrival to the emergency room, patient was noted to have bright red blood per rectum. He underwent basic workup including a CBC which showed in H&H which was at about his baseline. A CT scan of the abdomen showed diverticulosis of the colon but no evidence of diverticulitis. He was given IV Dilaudid and IV Zofran along with 1 L of IV fluids. Given his prior history of issues with this diverticulosis/diverticulitis, he will be observed overnight. Review of Systems Review of Systems: General - no fevers or chills Cardiovascular - no chest pain Respiratory - no shortness of breath or cough Abdominal- Bright red blood per rectum, crampy abdominal pain Yes all other systems are reviewed and are negative [facility] Medical History Anxiety Constipation GERD (gastroesophageal reflux disease) History of diverticulitis Hyperlipidemia Hypertension Mitral valve disease Right ankle pain Family History (Updated 12/13/20 @ 15:43 by Rajesh Elizabeth MD) Mother Diabetes mellitus Father Diabetes mellitus Surgical History H/O mitral valve repair Status post Ammy procedure (10/21/19) Social History Household Members: Significant Other Housing: Apartment Are you a primary vocational childcare teacher to a significant other at home: No Do you presently have visiting nurse or other home services: Yes ([facility]) Alcohol intake: current Alcohol intake frequency: a few times a week Alcohol type: beer Patient Tobacco Use Status: Never used Tobacco Second Hand Smoke Exposure: No Use of substances other than those prescribed or required for medical reasons: No Substance Use Type: Marijuana Advance Directives: Yes Advance Directives on File: Yes Advance Directives Date on File: 02/22/20 service: No Current occupational status: unemployed Meds Allergies Allergy/AdvReac Type Severity Reaction Status Date / Time morphine [MORPHINE] Allergy Unknown HIVES, rash Verified 07/22/20 15:20 Active Medications: Current Medications Generic Name Dose Route Start Last Admin Trade Name Freq PRN Reason Stop Dose Admin Acetaminophen 650 mg 12/13/20 14:08 Acetaminophen 325 Mg Tablet PO Q6H PRN Pain, Mild (Pain Scale 1-3) Pharmacy Consult 1 each 12/13/20 13:57 Consult Rx Perform Med Rec MISCELLANE ONCE PRN Consult order Sodium Chloride 3 ml 12/13/20 16:00 0.9 % Sodium Chloride Flush 3 Ml Syringe [facility] [place] Medications Medication Instructions Recorded Confirmed Last Taken Type aspirin 81 mg tablet,delayed 81 mg PO DAILY 12/28/19 03/24/20 Unknown History release (Adult Low Dose Aspirin) atorvastatin 20 mg tablet 20 mg PO DAILY 12/28/19 12/13/20 Unknown History gabapentin 300 mg capsule 300 mg PO BEDTIME 01/07/20 12/13/20 Unknown History sertraline 50 mg tablet 50 mg PO DAILY 02/16/20 12/13/20 Unknown History dapagliflozin 10 mg tablet 10 mg PO DAILY 12/13/20 12/13/20 12/13/20 History ([facility]) Physical Exam Vital Signs and Narrative: Vital Signs: Last Vital Signs Temp 98.2 F 12/13/20 09:22 Pulse 103 H 12/13/20 14:01 Resp 18 12/13/20 14:01 BP 176/118 H 12/13/20 14:01 Pulse Ox 95 12/13/20 14:01 Body Mass Index 38.0 Const: Other: Constitutional - Awake and Alert, No apparent distress Eyes - PERRLA, EOMI Cardiovascular - S1S2, RRR, No edema Respiratory - Normal lung expansion, Normal respiratory effort, No respiratory distress, CTA bilaterally Gastrointestinal - lower quad TTP; +BS; No rebound or guarding - No CVA tenderness Extremities - no calf tenderness bilaterally, no swelling Musculoskeletal - Normal inspection, normal ROM Skin - Warm/Dry Neurological - Alert & oriented x3, No focal deficit Psychological - Appropriate affect Results Labs CBC and Chem 7: 12/13/20 09:57 12/13/20 12:52 Labs: Laboratory Results - last 24 hr 12/13/20 12/13/20 12/13/20 09:57 09:57 12:44 MCV 87.1 MCH 29.3 MCHC 33.7 RDW 14.6 Plt Count 232 MPV Not Reportable Immature Gran % (Auto) 0.9 H Neut % (Auto) 75.1 H Lymph % (Auto) 18.3 L [place] % (Auto) 4.4 Eos % (Auto) 0.8 Baso % (Auto) 0.5 Lymph # (Auto) 1.9 [place] # (Auto) 0.5 Eos # (Auto) 0.1 Baso # (Auto) 0.1 Abs Immat Gran (auto) 0.09 H Absolute Neuts (auto) 7.9 Absolute Nucleated RBC 0.000 Nucleated RBC % (auto) 0.0 PT INR Anion Gap Estim Creat Clear Calc Estimated GFR POC Glucose 185 H Random Glucose Calcium Total Bilirubin Direct Bilirubin AST ALT Alkaline Phosphatase Total Protein Albumin COVID-19 (CLAIRE) Negative COVID-19 Clin Com See Note 12/13/20 12/13/20 12:52 13:00 MCV MCH MCHC RDW Plt Count MPV Immature Gran % (Auto) Neut % (Auto) Lymph % (Auto) [place] % (Auto) Eos % (Auto) Baso % (Auto) Lymph # (Auto) [place] # (Auto) Eos # (Auto) Baso # (Auto) Abs Immat Gran (auto) Absolute Neuts (auto) Absolute Nucleated RBC Nucleated RBC % (auto) PT 11.8 INR 1.0 Anion Gap 15 Estim Creat Clear Calc 72.4 Estimated GFR 53 POC Glucose Random Glucose 201 H Calcium 9.0 Total Bilirubin 0.8 Direct Bilirubin 0.3 AST 97 H ALT 109 H Alkaline Phosphatase 42 D Total Protein 7.5 Albumin 4.0 COVID-19 (CLAIRE) COVID-19 Clin Com Imaging Radiologist's Impressions: Impressions Abdomen/Pelvis CT 12/13/20 09:18 IMPRESSION: Diverticulosis of the colon. No evidence of diverticulitis. Fatty liver. Small nonobstructing right renal stone. Assessment and Plan (1) Lower GI bleed: Status: Acute (2) Diverticulosis: Status: Acute This is a 50 yo M with multiple medical issues who presents with sudden on set bright red blood per rectum. Given his history of colonic diverticular disease, suspect this is the most likely source. He will be observed overnight for further bleeding. 1. Lower GI bleed suspected diverticular, but differential also includes inflammatory vs infectious vs ischemic will trend h/h continue IVF clear liquids GI consult no indication for transfusion at this time 2. DM reports recently diagnosed hold oral meds use sliding scale 3. Elevated BP does not appear to be on any antihypertensives observe and start oral meds if HTN persists 4. Transaminaes suspected secondary to fatty liver -- see CT abd/pelvis report 5. Mood home meds Full Code DVT pptx, mechanical due to lower Gi bleed Quality Stroke Does the patient have a stroke diagnosis?: No VTE Prior VTE?: No VTE Risk Level:: Medical - moderate - high VTE Device Contraindication: N/A - Device Ordered VTE Drug Contraindication: Treatment Not Indicated
[2020-12-13 14:29] LABS: SLIDE REVIEW VERIFIED
[2020-12-13] MEDS: HYDROmorphone HCl 0.5 MG/0.5 ML SYRINGE IVPUSH ×2 (14:59→19:25)
[2020-12-13] MEDS: 0.9 % Sodium Chloride Flush 3 ML SYRINGE IVFLUSH (15:00)
--- NOTE | 2020-12-13 15:40 | PC.NURSE ---
Pt recently medicated for pain. Resting in bed in NAD. VSS. Awaigint bed assignment on floor. States that he has not had a BM since coming into the hospial.
[2020-12-13] MEDS: Acetaminophen 325 MG TABLET 650 MG PO (17:48)
[2020-12-13] MEDS: Lactated Ringers 1,000 ML 100 ML IVCONT (17:48)
--- NOTE | 2020-12-13 18:23 | PC.NURSE ---
BP elevated with SBP in 170s throughout the day. Hospitalist aware. Pt states that he takes metoprolol 50mg TID at home. Plan is for MD to order medication to receive while in the hospital. This message also relayed to recieving Med-surgical manager.
[2020-12-13 19:01] LABS: Glucose, Whole Blood 307 mg/dL (60-115)
[2020-12-13] MEDS: Metoprolol Tartrate 50 MG TABLET PO (19:20)
[2020-12-13] MEDS: Gabapentin 300 MG CAPSULE PO (19:20)
[2020-12-13] MEDS: Insulin Lispro 100 UNIT/ML 3 ML VIAL SUBCUT (19:21)
[2020-12-13 19:22] LABS: Hematocrit 49.4 % (42-52); Hemoglobin 16.4 g/dl (14.0-18.0)
[2020-12-14] VITALS (10 sets, daily range): BP systolic 140–184; BP diastolic 80–130; PULSE 69–89; RESP 16–20; TEMP 36–37; O2SAT 94–98
[2020-12-14] MEDS: HYDROmorphone HCl 0.5 MG/0.5 ML SYRINGE IVPUSH ×3 (00:30→21:45)
[2020-12-14] MEDS: Acetaminophen 325 MG TABLET 650 MG PO (00:30)
[2020-12-14] MEDS: ondansetron HCL 4 MG/2 ML VIAL IVPUSH ×2 (01:49→17:30)
[2020-12-14] MEDS: Lactated Ringers 1,000 ML 100 ML IVCONT ×2 (01:56→17:29)
[2020-12-14 02:01] LABS: Hematocrit 47.6 % (42-52); Hemoglobin 15.9 g/dl (14.0-18.0)
[2020-12-14] MEDS: Insulin Lispro 100 UNIT/ML 3 ML VIAL SUBCUT ×4 (07:59→21:38)
[2020-12-14] MEDS: LORazepam 2 MG/ML VIAL 0.5 MG IVPUSH (08:00)
[2020-12-14 08:06] LABS: Glucose, Whole Blood 215 mg/dL (60-115)
[2020-12-14 08:41] LABS: MANUAL DIFF FLAG NO
[2020-12-14 08:52] LABS: Basophils Absolute Auto 0.1 X10*3/uL (0.0-0.2); Basophils Percent Auto 0.4 % (0-2); Eosinophils Absolute Auto 0.1 X10*3/uL (0.0-0.4); Eosinophils Percent Auto 0.4 % (0-4); Hematocrit 48.9 % (42-52); Hemoglobin 16.1 g/dl (14.0-18.0); Imm Gran Abs Auto 0.15 X10*3/uL (0.00-0.03); Imm Gran Pct Auto 1.1 % (0.0-0.4); Lymphocytes Absolute Auto 1.7 X10*3/uL (1.2-4.9); Mean Corpuscular HGB Conc 32.9 g/dl (31.0-36.0); Mean Corpuscular Hemoglobin 29.1 pg (27.0-33.0); Mean Corpuscular Volume 88.4 fL (80-98); Mean Platelet Volume 11.9 fL (9.4-12.4); Monocytes Absolute Auto 0.6 X10*3/uL (0.1-1.2); Monocytes Percent Auto 4.5 % (2-11); Neutrophils Absolute Auto 11.5 X10*3/uL (2.0-8.3); Neutrophils Percent Auto 81.6 % (45-73); Platelet Count 264 X10*3/uL (160-400); Red Blood Count 5.53 X10*6/uL (4.60-5.80); Red Cell Distribution Width 14.7 % (11.0-16.0); White Blood Count 14.1 X10*3/uL (4.8-10.8)
--- NOTE | 2020-12-14 10:23 | PM.GICN ---
History of Present Illness Data of Consult Service Date: 12/14/20 Requesting physician: Rajesh Elizabeth Primary Care Provider: MD JEEVAN Mills Reason for consult: rectal bleeding 50-year-old male with a past medical history of sigmoid colectomy due to diverticular perforation with colostomy and eventual reversal, HTN, HLP, being seen for assessment for acute blood loss. He had 1-2 d of sudden onset bright red rectal bleeding noted in the toilet associated with crampy right sided lower abdominal pain and nausea. He is status post Ammy procedure with colostomy which was reversed in December 2019. He denies any straining or recent constipation.?He denies any fevers or chills.? He does not report eating anything badly cooked or unusual. A CT scan of the abdomen showed diverticulosis of the colon but no evidence of diverticulitis.? He was given IV Dilaudid and IV Zofran along with 1 L of IV fluids HGB was normal but has dropped since admission by about 1.5 g/dl. Review of Systems Review of Systems Review of Systems: General - no fevers or chills Cardiovascular - no chest pain Respiratory - no shortness of breath or cough Abdominal- Bright red blood per rectum, crampy abdominal pain Yes all other systems are reviewed and are negative Constitutional: Constitutional: Reports no additional constitutional complaints Eyes: Eyes: Reports no additional eye complaints Cardiovascular: Cardiovascular: Reports no additional cardiovascular complaints Respiratory: Respiratory: Reports no additional respiratory complaints Genitourinary: Genitourinary: Reports no additional male genitourinary complaints Musculoskeletal: Musculoskeletal: Reports no additional musculoskeletal complaints Neurologic: Reports system reviewed and no additional complaints, except as documented Psychiatric: Psychiatric: Reports no additional psychiatric complaints [facility] Past Medical History Medical History Anxiety Constipation GERD (gastroesophageal reflux disease) History of diverticulitis Hyperlipidemia Hypertension Mitral valve disease Right ankle pain Family History Family History (Updated 12/13/20 @ 15:43 by Rajesh Elizabeth MD) Mother Diabetes mellitus Father Diabetes mellitus Surgical History Surgical History H/O mitral valve repair Status post Ammy procedure (10/21/19) Social History Social History Household Members: Significant Other Housing: Apartment Are you a primary direct care counselor to a significant other at home: No Do you presently have visiting nurse or other home services: Yes ([facility]) Alcohol intake: current Alcohol intake frequency: a few times a week Alcohol type: beer Patient Tobacco Use Status: Never used Tobacco Second Hand Smoke Exposure: No Substance Use Type: Marijuana Advance Directives Date on File: 02/22/20 service: No Current occupational status: unemployed Meds Allergies Allergy/AdvReac Type Severity Reaction Status Date / Time morphine [MORPHINE] Allergy Unknown HIVES, rash Verified 07/22/20 15:20 Active Medications: Current Medications Generic Name Dose Route Start Last Admin Trade Name Freq PRN Reason Stop Dose Admin Acetaminophen 650 mg 12/13/20 14:08 12/14/20 00:30 Acetaminophen 325 Mg Tablet PO 650 mg Q6H PRN Administration Pain, Mild (Pain Scale 1-3) Atorvastatin Calcium 20 mg 12/14/20 09:00 Atorvastatin Calcium 20 Mg Tablet PO DAILY SHARIF Gabapentin 300 mg 12/13/20 21:00 12/13/20 19:20 Gabapentin 300 Mg Capsule PO 300 mg BEDTIME SHARIF Administration Hydromorphone HCl 0.5 mg 12/13/20 14:38 12/14/20 00:30 Hydromorphone Hcl 0.5 Mg/0.5 Ml Syringe IVPUSH 0.5 mg Q4H PRN Administration Pain, Severe (Pain Scale 7-10) Protocol Lactated Ringer's 1,000 mls @ 100 mls/hr 12/13/20 15:45 12/14/20 01:56 Lr IVCONT 100 mls/hr .Q10H SHARIF Administration Insulin Human Lispro 0 unit 12/13/20 16:30 12/14/20 07:59 Insulin Lispro 100 Unit/Ml 3 Ml Vial SUBCUT 4 unit QIDACHS SHARIF Administration Protocol Metoprolol Tartrate 50 mg 12/13/20 21:00 12/13/20 19:20 Metoprolol Tartrate 50 Mg Tablet PO 50 mg TID SHARIF Administration Protocol Pharmacy Consult 1 each 12/13/20 13:57 Consult Rx Perform Med Rec MISCELLANE ONCE PRN Consult order Sertraline HCl 50 mg 12/14/20 09:00 Sertraline Hcl 50 Mg Tablet PO DAILY SHARIF Sodium Chloride 3 ml 12/13/20 16:00 12/14/20 08:11 0.9 % Sodium Chloride Flush 3 Ml Syringe IVFLUSH Not Given QSHIFT [facility] Home Medications Medication Instructions Recorded Confirmed Last Taken Type aspirin 81 mg tablet,delayed 81 mg PO DAILY 12/28/19 03/24/20 Unknown History release (Adult Low Dose Aspirin) atorvastatin 20 mg tablet 20 mg PO DAILY 12/28/19 12/13/20 Unknown History gabapentin 300 mg capsule 300 mg PO BEDTIME 01/07/20 12/13/20 Unknown History sertraline 50 mg tablet 50 mg PO DAILY 02/16/20 12/13/20 Unknown History dapagliflozin 10 mg tablet 10 mg PO DAILY 12/13/20 12/13/20 12/13/20 History ([facility]) metoprolol tartrate 50 mg tablet 1 tab PO TID 12/13/20 12/13/20 12/13/20 History Physical Exam Vital Signs: Vital Signs: Last Vital Signs Temp 97.7 F 12/14/20 07:36 Pulse 86 12/14/20 07:36 Resp 16 12/14/20 03:18 BP 140/105 H 12/14/20 07:36 Pulse Ox 95 12/14/20 07:36 Body Mass Index 38.0 EXAM: GENERAL: The patient is well developed and nontoxic. VITAL SIGNS:see workflow HEENT: Nonicteric sclerae, PERRLA, EOMI. Oropharynx clear. Moist mucous membranes. Conjunctivae appear well perfused. No thyroid mass. CHEST: Chest wall is nontender. HEART: Regular rate and rhythm without murmurs. LUNGS: Clear to auscultation bilaterally. ABDOMEN: Soft, positive bowel sounds, nontender, no organomegaly.no flank tenderness SKIN: No rash, no excessive bruising, petechiae, or purpura. NEUROLOGIC: Cranial nerves II-XII intact without motor/sensory deficit. psych--nml affect MS- full rom all joints Const: Other: Constitutional - Awake and Alert, No apparent distress Eyes - PERRLA, EOMI Cardiovascular - S1S2, RRR, No edema Respiratory - Normal lung expansion, Normal respiratory effort, No respiratory distress, CTA bilaterally Gastrointestinal - lower quad TTP; +BS; No rebound or guarding - No CVA tenderness Extremities - no calf tenderness bilaterally, no swelling Musculoskeletal - Normal inspection, normal ROM Skin - Warm/Dry Neurological - Alert & oriented x3, No focal deficit Psychological - Appropriate affect Results Labs CBC & Chem 7: 12/15/20 05:30 12/15/20 05:30 Labs: Short CBC 12/13/20 12/13/20 12/14/20 Range/Units 09:57 19:04 01:56 WBC 10.5 (4.8-10.8) X10*3/uL Hgb 17.5 16.4 15.9 (14.0-18.0) g/dl Hct 52.0 49.4 47.6 (42-52) % Plt Count 232 (160-400) X10*3/uL 12/14/20 Range/Units 08:20 WBC 14.1 H (4.8-10.8) X10*3/uL Hgb 16.1 (14.0-18.0) g/dl Hct 48.9 (42-52) % Plt Count 264 (160-400) X10*3/uL BMP 12/13/20 12:52 Sodium 138 Potassium 4.1 Chloride 107 Carbon Dioxide 20 L BUN 10 Creatinine 1.43 H Calcium 9.0 Liver Function 12/13/20 Range/Units 12:52 Total Bilirubin 0.8 (0.0-1.0) mg/dL Direct Bilirubin 0.3 (0.0-0.5) mg/dL AST 97 H (5-37) U/L ALT 109 H (0-40) U/L Alkaline Phosphatase 42 D (39-117) U/L Albumin 4.0 (3.5-5.0) g/dL Assessment and Plan (1) Lower GI bleed: Status: Acute 1/ Acute GI blood loss, ddx; hemorrhoidal, diverticular bleed, colitis, upper GI bleed with rapid transit melquiades with nausea sx PLAN: 1/ Colonoscopy with possible EGD 2/ cont to monitor H/H, transfuse if HGB <7 g/dl 3/ clears today and bowel prep tonight 4/ o/p work up for elevated AST, ALT Procedures Date of Service Date of Service: 12/14/20
[2020-12-14] MEDS: Sertraline HCL 50 MG TABLET PO (10:33)
[2020-12-14] MEDS: Metoprolol Tartrate 50 MG TABLET PO ×3 (10:34→21:39)
[2020-12-14] MEDS: Atorvastatin Calcium 20 MG TABLET PO (10:34)
--- NOTE | 2020-12-14 11:27 | P.PNIM_ITS ---
Subjective Subjective Date of Service: 12/14/20 Interval History: Seen and examined this morning Follow-up for hematochezia No further rectal bleeding. Patient reports ongoing right-sided abdominal pain. He has nausea, vomiting and headache Review of Systems Review of Systems: Yes all other systems are reviewed and are negative Constitutional Constitutional: Denies chills and Denies fever(s) Cardiovascular Cardiovascular: Denies chest pain Respiratory Respiratory: Denies cough Physical Exam Vital Signs: Vital Signs: Last Vital Signs Temp 97.7 F 12/14/20 07:36 Pulse 86 12/14/20 07:36 Resp 16 12/14/20 03:18 BP 140/105 H 12/14/20 07:36 Pulse Ox 95 12/14/20 07:36 Body Mass Index 38.0 Const: General: comfortable, alert and awake Nutritional Appearance: overweight Orientation/consciousness: patient oriented x3 HENMT: Head: Yes normocephalic and Yes atraumatic Eyes: Sclerae: sclerae normal Pupils: Equal, round and reactive pupils present Resp: Effort & Inspection: normal respiratory effort and no respiratory distress Cardio: Rate: regular rate Rhythm: regular rhythm GI: Other: Tenderness to palpation right abdomen, no guarding, no distention Palpation (GI): Soft to palpation Neuro: General: patient oriented x3 Cranial nerves: Yes CN's II-XII intact bilaterally, Yes Equal, round and reactive pupils present and Yes Bilaterally intact EOM present Objective Data Active Medications Acetaminophen (Acetaminophen 325 Mg Tablet) 650 mg PO Q6H PRN PRN Reason: Pain, Mild (Pain Scale 1-3) Last Admin: 12/14/20 00:30 Dose: 650 mg Documented by: LELIA Atorvastatin Calcium (Atorvastatin Calcium 20 Mg Tablet) 20 mg PO DAILY [facility] Last Admin: 12/14/20 10:34 Dose: 20 mg Documented by: JOSE Gabapentin (Gabapentin 300 Mg Capsule) 300 mg PO BEDTIME [facility] Last Admin: 12/13/20 19:20 Dose: 300 mg Documented by: LELIA Hydromorphone HCl (Hydromorphone Hcl 0.5 Mg/0.5 Ml Syringe) 0.5 mg IVPUSH Q4H PRN; Protocol PRN Reason: Pain, Severe (Pain Scale 7-10) Last Admin: 12/14/20 00:30 Dose: 0.5 mg Documented by: LELIA Lactated Ringer's (Lr) 1,000 mls @ 100 mls/hr IVCONT .Q10H [facility] Last Admin: 12/14/20 01:56 Dose: 100 mls/hr Documented by: LELIA Insulin Human Lispro (Insulin Lispro 100 Unit/Ml 3 Ml Vial) 0 unit SUBCUT QIDACHS [facility]; Protocol Last Admin: 12/14/20 07:59 Dose: 4 unit Documented by: JOSE Metoprolol Tartrate (Metoprolol Tartrate 50 Mg Tablet) 50 mg PO TID [facility]; Protocol Last Admin: 12/14/20 10:34 Dose: 50 mg Documented by: JSOE Pharmacy Consult (Consult Rx Perform Med Rec) 1 each MISCELLANE ONCE PRN PRN Reason: Consult order Sertraline HCl (Sertraline Hcl 50 Mg Tablet) 50 mg PO DAILY [facility] Last Admin: 12/14/20 10:33 Dose: 50 mg Documented by: JOSE Sodium Chloride (0.9 % Sodium Chloride Flush 3 Ml Syringe) 3 ml IVFLUSH QSHIFT [facility] Last Admin: 12/14/20 08:11 Dose: Not Given Documented by: JOSE Non-Admin Reason: IV Running Labs CBC & Chem 7: 12/14/20 08:20 12/13/20 12:52 Labs: Laboratory Results - last 24 hr 12/13/20 12/13/20 12/13/20 09:57 12:44 12:52 MCV MCH MCHC RDW Plt Count 232 MPV Immature Gran % (Auto) 0.9 H Neut % (Auto) 75.1 H Lymph % (Auto) 18.3 L [place] % (Auto) 4.4 Eos % (Auto) 0.8 Baso % (Auto) 0.5 Lymph # (Auto) 1.9 [place] # (Auto) 0.5 Eos # (Auto) 0.1 Baso # (Auto) 0.1 Abs Immat Gran (auto) 0.09 H Absolute Neuts (auto) 7.9 Absolute Nucleated RBC 0.000 Nucleated RBC % (auto) 0.0 Smear Tech's Comments VERIFIED PT INR Anion Gap 15 Estim Creat Clear Calc 72.4 Estimated GFR 53 POC Glucose 185 H Random Glucose 201 H Calcium 9.0 Total Bilirubin 0.8 Direct Bilirubin 0.3 AST 97 H ALT 109 H Alkaline Phosphatase 42 D Total Protein 7.5 Albumin 4.0 Blood Type Antibody Screen 12/13/20 12/13/20 12/13/20 13:00 14:06 18:52 MCV MCH MCHC RDW Plt Count MPV Immature Gran % (Auto) Neut % (Auto) Lymph % (Auto) [place] % (Auto) Eos % (Auto) Baso % (Auto) Lymph # (Auto) [place] # (Auto) Eos # (Auto) Baso # (Auto) Abs Immat Gran (auto) Absolute Neuts (auto) Absolute Nucleated RBC Nucleated RBC % (auto) Smear Tech's Comments PT 11.8 INR 1.0 Anion Gap Estim Creat Clear Calc Estimated GFR POC Glucose 307 H Random Glucose Calcium Total Bilirubin Direct Bilirubin AST ALT Alkaline Phosphatase Total Protein Albumin Blood Type A Positive Antibody Screen NEGATIVE 12/14/20 12/14/20 07:34 08:20 MCV 88.4 MCH 29.1 MCHC 32.9 RDW 14.7 Plt Count 264 MPV 11.9 Immature Gran % (Auto) 1.1 H Neut % (Auto) 81.6 H Lymph % (Auto) 12.0 L [place] % (Auto) 4.5 Eos % (Auto) 0.4 Baso % (Auto) 0.4 Lymph # (Auto) 1.7 [place] # (Auto) 0.6 Eos # (Auto) 0.1 Baso # (Auto) 0.1 Abs Immat Gran (auto) 0.15 H Absolute Neuts (auto) 11.5 H Absolute Nucleated RBC 0.000 Nucleated RBC % (auto) 0.0 Smear Tech's Comments PT INR Anion Gap Estim Creat Clear Calc Estimated GFR POC Glucose 215 H Random Glucose Calcium Total Bilirubin Direct Bilirubin AST ALT Alkaline Phosphatase Total Protein Albumin Blood Type Antibody Screen Assessment and Plan (1) Lower GI bleed: Status: Acute (2) Hematochezia: Status: Acute Assessment and Plan: This is a 50-year-old male with a history of diabetes, hypertension, dyslipidemia, CKD, recurrent diverticulitis with perforation status post Ammy procedure with colostomy and subsequent colostomy reversal who presents to the emergency department with bright red blood per rectum Lower GI bleeding Suspected diverticular No further episodes of bleeding since admission. H/H stable Seen by GI planned for colonoscopy in a.m. Continue clear liquid diet, IV fluid Diabetes Recently diagnosed Hold home oral medication Continue SSI, POC Hypertension Continue metoprolol or Monitor blood pressure closely will up titrate medication if BP continues to be elevated Transaminitis Likely secondary to fight her liver disease seen on imaging studies Hold statin CKD 3 Creatinine at baseline Mood Continue sertraline DVT prophylaxis-mechanical devices due to GI bleeding Attending physician Dr. Elizabeth Quality Stroke Does the patient have a stroke diagnosis?: No VTE Prior VTE?: No VTE Risk Level:: Medical - moderate - high VTE Device Contraindication: N/A - Device Ordered VTE Drug Contraindication: Treatment Not Indicated
--- NOTE | 2020-12-14 11:35 | MHC.CM.PN ---
PER PHYSICIAN ROUNDS, PLAN IS COLONOSCOPY TOMORROW AND POSSIBLE DC AFTERWARDS.
[2020-12-14 12:21] LABS: Glucose, Whole Blood 199 mg/dL (60-115)
--- NOTE | 2020-12-14 15:45 | PC.NURSE ---
Skin assessment completed today. No open areas or pressure injuries noted at this time. Patient does have a indurated cabbed abscess on right scapula and stated that he also have some smelly discharge that drains from his left axilla.
[2020-12-14 17:11] LABS: Glucose, Whole Blood 160 mg/dL (60-115)
[2020-12-14] MEDS: 0.9 % Sodium Chloride Flush 3 ML SYRINGE IVFLUSH (17:21)
[2020-12-14 20:53] LABS: Glucose, Whole Blood 220 mg/dL (60-115)
[2020-12-14] MEDS: Gabapentin 300 MG CAPSULE PO (21:39)
[2020-12-14] MEDS: bisacodyL 5 MG TABLET.DR 10 MG PO (22:16)
--- NOTE | 2020-12-14 22:21 | PC.NURSE ---
P patient unable to tolerate golytely IPA Yessica was notified,dr. Concepcion notified,new order received E unable to mix Miralax ,awaiting research contracts supervisor bringing up a solution to mix it with
--- NOTE | 2020-12-14 23:01 | PC.NURSE ---
Exchange Specialist unable to obtain propel to mix Miralax with but patient states he will not be able to drink it any way,Dr. Concepcion notified
[2020-12-15] MEDS: Acetaminophen 325 MG TABLET 650 MG PO (02:33)
[2020-12-15] MEDS: Lactated Ringers 1,000 ML 100 ML IVCONT (03:57)
[2020-12-15 04:00] VITALS: BP 174/76; PULSE 65; RESP 19; TEMP 36.7; O2SAT 96
[2020-12-15 05:49] LABS: Hematocrit 49.3 % (42-52); Hemoglobin 16.1 g/dl (14.0-18.0); Mean Corpuscular HGB Conc 32.7 g/dl (31.0-36.0); Mean Corpuscular Hemoglobin 29.1 pg (27.0-33.0); Mean Corpuscular Volume 89.2 fL (80-98); Mean Platelet Volume 11.6 fL (9.4-12.4); Platelet Count 287 X10*3/uL (160-400); Red Blood Count 5.53 X10*6/uL (4.60-5.80); Red Cell Distribution Width 14.7 % (11.0-16.0); White Blood Count 14.4 X10*3/uL (4.8-10.8)
[2020-12-15 06:07] LABS: Anion Gap 10 (12-20); Blood Urea Nitrogen 8 mg/dL (9-16); Calcium 8.8 mg/dL (8.4-10.2); Carbon Dioxide 30 mmol/L (22-29); Chloride 102 mmol/L (96-108); Creatinine Clr Calc Pharmacy 72.4; Estimated Glomerular Filt Rate 53; Glucose Random 208 mg/dL (60-115); Potassium 3.8 mmol/L (3.3-5.1); Sodium 138 mmol/L (135-145)
[2020-12-15 07:36] VITALS: BP 164/104; PULSE 73; RESP 20; TEMP 36.4; O2SAT 96
[2020-12-15 08:11] LABS: Glucose, Whole Blood 173 mg/dL (60-115)
[2020-12-15] MEDS: Metoprolol Tartrate 50 MG TABLET PO (09:51)
[2020-12-15] MEDS: Sertraline HCL 50 MG TABLET PO (09:52)
[2020-12-15] MEDS: 0.9 % Sodium Chloride Flush 3 ML SYRINGE IVFLUSH (09:52)
--- NOTE | 2020-12-15 11:05 | P.DS_ITS ---
DS: Providers Provider Date of Service: 12/15/20 Date of admission: 12/13/20 14:08 Date of discharge: 12/15/20 Primary care physician: Daniel Cisneros MD Consults: 12/13/20 14:13 Consult to Gastroenterology Routine Consulting Provider: Wandy Concepcion Reason for consultation: lower gi bleed Attending physician on discharge: Rajesh Elizabeth Discharging clinician: Rajesh Elizabeth DS: Diagnosis Discharge Diagnosis (1) Lower GI bleed: Status: Acute DS: Summary Hospital Course Hospital Course: HPI: This is a 50-year-old male with a past medical history as outlined below who presents to the hospital with several bowel movements with bright red blood which began on the day prior to ED arrival.? Patient reports that on the day prior to arrival, he noticed some lower abdominal cramping but did much of it.? Later on when he was moving his bowels he noticed that there was blood on the toilet paper as well as in the toilet.? This happened several more times and so this morning he presented to the emergency room. Of note, the patient has an extensive intra-abdominal history with recurrent diverticulitis with perforation.? He is status post Ammy procedure in the past with colostomy which has been reversed about 1 year ago in December 2019. The patient himself denies any straining or recent constipation.? He denies any nausea or vomiting.? He denies any fevers or chills.? He does not report eating anything out of the ordinary for him.? He does report crampy lower abdominal pain.? Upon arrival to the emergency room, patient was noted to have bright red blood per rectum.? He underwent basic workup including a CBC which showed in H&H which was at about his baseline.? A CT scan of the abdomen showed diverticulosis of the colon but no evidence of diverticulitis.? He was given IV Dilaudid and IV Zofran along with 1 L of IV fluids.? Given his prior history of issues with this diverticulosis/diverticulitis, he will be observed overnight. Hospital Course Patient was admitted for hematochezia. He had serial H&H monitored. His hemoglobin did drop slightly with a presenting H&H of 17.5/52 down to a zen of 15.9/47. His H&H has stabilized after this and is at 16.1/49.3 at the time of discharge. He was kept NPO and was evaluated by Gastroenterology with plans to undergo upper endoscopy and colonoscopy. However due to persistent nausea he was unable to tolerate the prep on the 1st night. The plan was for a repeat attempted at the [facility] for inpatient scopes, however the patient himself elected for outpatient workup. Since his H&H and blood pressure are stable as well as he has had no further bloody bowel movements he will be discharged home. He has been referred to Dr. Concepcion Time Spent with Patient Time attestation: Total time spent providing and/or coordinating discharge services: Discharge coordination time: Greater than 30 minutes Quality: Stroke Does the patient have a stroke diagnosis?: No Physical Exam Vital Signs: Vital Signs: Last Vital Signs Temp 97.6 F 12/15/20 07:36 Pulse 73 12/15/20 07:36 Resp 20 12/15/20 07:36 BP 164/104 H 12/15/20 07:36 Pulse Ox 96 12/15/20 07:36 Body Mass Index 38.0 Const: Other: General - no acute distress, appears comfortable Cardiovascular - regular rate and rhythm, S1-S2 Lungs - normal respiratory effort, clear to auscultation bilaterally, no wheezing Abdomen - soft, nontender, no rebound or guarding Extremities - no edema bilaterally Neuro - awake and alert, no focal deficits DS: Data Data Completed and Pending Completed studies during hospitalization [Text1]: Procedures Drainage of Peritoneal Cavity, Percutaneous Approach (02/15/20) Reposition Sigmoid Colon, Open Approach (01/18/20) Labs on day of discharge: Laboratory Results - last 24 hr 12/14/20 12/14/20 12/14/20 11:54 17:03 20:45 WBC RBC Hgb Hct MCV MCH MCHC RDW Plt Count MPV Absolute Nucleated RBC Nucleated RBC % (auto) Sodium Potassium Chloride Carbon Dioxide Anion Gap BUN Creatinine Estim Creat Clear Calc Estimated GFR POC Glucose 199 H 160 H 220 H Random Glucose Calcium 12/15/20 12/15/20 12/15/20 05:30 05:30 07:48 WBC 14.4 H RBC 5.53 Hgb 16.1 Hct 49.3 MCV 89.2 MCH 29.1 MCHC 32.7 RDW 14.7 Plt Count 287 MPV 11.6 Absolute Nucleated RBC 0.000 Nucleated RBC % (auto) 0.0 Sodium 138 Potassium 3.8 Chloride 102 Carbon Dioxide 30 H Anion Gap 10 L BUN 8 L Creatinine 1.43 H Estim Creat Clear Calc 72.4 Estimated GFR 53 POC Glucose 173 H Random Glucose 208 H Calcium 8.8 Discharge Plan Discharge Patient Disposition: Home, Self-Care Discharge Diagnosis: Hematochezia Referrals: Wandy Concepcion MD [Physician] - 1 Week Daniel Cisneros MD [Primary Care Provider] - 1 Week Discharge Medications: New polyethylene glycol 3350 [Miralax] 17 gram powder in packet 238 g PO ONCE Qty: 1 RF: 0 bisacodyl [Dulcolax (bisacodyl)] 5 mg tablet,delayed release (DR/EC) 10 mg PO ONCE 1 Days Qty: 2 RF: 0 ondansetron 4 mg tablet,disintegrating 4 mg PO Q8H PRN (Reason: nausea and vomiting) Qty: 7 RF: 0 Continued sertraline 50 mg Tablet 50 mg PO DAILY RF: 0 acetaminophen 500 mg tablet 1,000 mg PO QID PRN (Reason: pain) Qty: 30 RF: 0 gabapentin 300 mg Capsule 300 mg PO BEDTIME RF: 0 docusate sodium [Colace] 100 mg capsule 100 mg PO BID PRN (Reason: Constipation) Qty: 14 RF: 0 Farxiga 10 mg Tablet 10 mg PO DAILY RF: 0 metoprolol tartrate 50 mg tablet 1 tab PO TID RF: 0 atorvastatin 20 mg tablet 20 mg PO DAILY RF: 0 aspirin [Adult Low Dose Aspirin] 81 mg tablet,delayed release (DR/EC) 81 mg PO DAILY RF: 0 Discharge Orders: Discharge Order (Routine); Ordered 12/15/20 Ordered By: Rajesh Elizabeth Diet: advance to usual diet Activity on Discharge: As tolerated Stand Alone Forms: Patient Portal Discharge page Care Plan Goals: To follow up with GI for endoscopies Health Concerns: Lowe GI bleed Plan of Treatment: Follow up with GI for endoscopy Assessment: 50-year-old male who presented to the hospital with hematochezia. Plan was for inpatient upper endoscopy and colonoscopy, however patient was not able to tolerate prep. He has elected for discharge home and outpatient endoscopies.
--- NOTE | 2020-12-15 11:13 | MHC.CM.PN ---
PT REPORTS HE LIVES ALONE AND IS INDEPENDENT WITH ALL CARE AND MOBILITY PT DENIES USING ANY DME OR IN HOME SERVICES PT CONFIRMS THE PCP AND HCP ON FILE ARE ACCURATE. PT CLEARED TO DC HOME TODAY WITH NO SERVICES PT WILL SELF ARRANGE RIDE
[2020-12-15 11:18] VITALS: BP 175/120; PULSE 68; RESP 18; TEMP 36.8; O2SAT 96
[2020-12-15 12:10] LABS: Glucose, Whole Blood 181 mg/dL (60-115)
== END 2020-12-15 13:05 | disposition home or self-care (01) ==
LOC: HO.ED 11:15 → HO.EDOVER 14:33 → HO.S3 17:24
PROVIDERS: Admitting Provider Family Medicine; Emergency Provider Internal Medicine; PCP Internal Medicine; Visit Provider Physician Assistant Medical
DX: K92.2 Gastrointestinal hemorrhage, unspecified (principal); K92.1 Melena; K76.0 Fatty (change of) liver, not elsewhere classified; N20.0 Calculus of kidney; I10 Essential (primary) hypertension; E78.5 Hyperlipidemia, unspecified; Z20.822 Contact with and (suspected) exposure to COVID-19; Z88.6 Allergy status to analgesic agent; Z90.49 Acquired absence of other specified parts of digestive tract; Z79.899 Other long term (current) drug therapy
CPT/HCPCS: 36415; 74176; 80048; 80076; 82947; 85014; 85018; 85025; 85027; 85610; 86850; 86900; 86901; 87635; 93005; 96361; 96374; 96375; 96376; 99218; 99285; J1170; J2060; J2405

== ENCOUNTER 2021-01-19 06:33 | Day surgery (SDC) | payer OTHER, SELFPAY ==
--- NOTE | 2021-01-18 14:48 | P.CONAN_ITS ---
Documented by User: Whitley Mcfarland NP 01/18/21 14:57 HPI - Anesthesia Eval Consult details Narrative: 50yo M for Upper Endoscopy and Colonoscopy s/p ostomy reversal 12/2019 (marcial d/t perforated divertic 09/2019) [facility] Active Problems Active Problems: All Active Problems (Updated 12/23/20 @ 00:03 by Background Daemon) Back pain (Acute) Muscle strain (Acute) Urinary retention (Acute) Abdominal wall seroma (Acute) S/P colostomy takedown (Acute) Sigmoid diverticulitis (Acute) Anxiety (Acute) GERD (gastroesophageal reflux disease) (Acute) Hyperlipidemia (Acute) Hypertension (Acute) Past Medical History Medical History Anxiety Constipation Diabetes Diverticulosis GERD (gastroesophageal reflux disease) Hematochezia History of diverticulitis Hyperlipidemia Hypertension Lower GI bleed Mitral valve disease Right ankle pain Sleep apnea Family History Family History Mother Diabetes mellitus Father Diabetes mellitus Surgical History Surgical History H/O mitral valve repair Status post Ammy procedure (10/21/19) Social History Social History Household Members: Significant Other Housing: Apartment Are you a primary child care assistant to a significant other at home: No Do you presently have visiting nurse or other home services: Yes ([facility]) Alcohol intake: current Alcohol intake frequency: a few times a week Alcohol type: beer Patient Tobacco Use Status: Never used Tobacco Second Hand Smoke Exposure: No Use of substances other than those prescribed or required for medical reasons: Yes Substance Use Type: Marijuana Substance Use Type Other:: CBD OIL Are you DNR?: No Advance Directives: No Advance Directives Information Provided: Yes Advance Directives Date on File: 02/22/20 service: No Current occupational status: unemployed Meds Allergies Allergy/AdvReac Type Severity Reaction Status Date / Time morphine [MORPHINE] Allergy Unknown HIVES, rash Verified 01/19/21 06:51 Home Medications Medication Instructions Recorded Confirmed Last Taken Type aspirin 81 mg tablet,delayed 81 mg PO DAILY 0903/24/20 01/19/21 History release (Adult Low Dose Aspirin) atorvastatin 20 mg tablet 20 mg PO DAILY 12/28/19 12/13/20 01/19/21 History gabapentin 300 mg capsule 300 mg PO BEDTIME 01/07/20 12/13/20 01/19/21 History sertraline 50 mg tablet 50 mg PO DAILY 02/16/20 12/13/20 01/19/21 History dapagliflozin 10 mg tablet 10 mg PO DAILY 12/13/20 12/13/20 12/13/20 History (Farxiga) metoprolol tartrate 50 mg tablet 1 tab PO TID 12/13/20 12/13/20 01/19/21 History gabapentin 300 mg capsule 1 cap PO TID 01/19/21 01/19/21 Unknown History insulin glargine 100 unit/mL (3 30 unit SUBCUT BEDTIME 01/19/21 01/19/21 Unknown History mL) subcutaneous pen (Lantus Solostar U-100 Insulin) omeprazole 20 mg capsule,delayed 1 cap PO DAILY 01/19/21 01/19/21 01/19/21 History release Exam Exam Date and Time: January 18, 2021 1448 Pertinent Lab Results Pertinent Lab Results: Laboratory Tests 12/15/20 12/15/20 05:30 05:30 WBC 14.4 H Hgb 16.1 Hct 49.3 Plt Count 287 Sodium 138 Potassium 3.8 Chloride 102 Carbon Dioxide 30 H BUN 8 L Creatinine 1.43 H Narrative Narrative: EKG 11/2020 Vent. Rate : 105 BPM ? ? Atrial Rate : 105 BPM ?? P-R Int : 152 ms? QRS Dur : 098 ms ? ? QT Int : 382 ms ? ? ? P-R-T Axes : 033 046 053 degrees ?? QTc Int : 504 ms ? Sinus tachycardia Nonspecific ST and T wave abnormality Abnormal ECG When compared with ECG of 14-SEP-2020 10:18, Heart rate has increased Nonspecific ST and T wave abnormality is now Present Exercise MIBI [address] segment abnormalities suggestive of ischemia. Perfusion imaging normal without any areas of ischemia or infarction. Echo 06/2018 mild conc LVH LVEF 55% Indeterminate diastolic function Bicuspid aortic valve with trace aortic insufficiency Miltral valve well-seated with mild mitral stenosis and a mean gradient of 3 mmHg at a HR at 98 with no regurg Assessment and Plan Assessment Anesthesia Assessment: Chart Reviewed Documented by User: Lucretia Ibarra MD 01/19/21 07:32 [facility] Past Medical History Medical History Anxiety Constipation Diabetes Diverticulosis GERD (gastroesophageal reflux disease) Hematochezia History of diverticulitis Hyperlipidemia Hypertension Lower GI bleed Mitral valve disease Right ankle pain Sleep apnea Functional capacity: independent ambulation Family History Family History Mother Diabetes mellitus Father Diabetes mellitus Family history of problems with anesthesia: No Surgical History Surgical History H/O mitral valve repair Status post Ammy procedure (10/21/19) History of Problems with Anesthesia: No Social History Social History Household Members: Significant Other Housing: Apartment Are you a primary child care assistant to a significant other at home: No Do you presently have visiting nurse or other home services: Yes ([employer]) Alcohol intake: current Alcohol intake frequency: a few times a week Alcohol type: beer Patient Tobacco Use Status: Never used Tobacco Second Hand Smoke Exposure: No Use of substances other than those prescribed or required for medical reasons: Yes Substance Use Type: Marijuana Substance Use Type Other:: CBD OIL Are you DNR?: No Advance Directives: No Advance Directives Information Provided: Yes Advance Directives Date on File: 02/22/20 service: No Current occupational status: unemployed Meds Allergies Allergy/AdvReac Type Severity Reaction Status Date / Time morphine [MORPHINE] Allergy Unknown HIVES, rash Verified 01/19/21 06:51 Home Medications Medication Instructions Recorded Confirmed Last Taken Type aspirin 81 mg tablet,delayed 81 mg PO DAILY 12/28/19 03/24/20 01/19/21 History release (Adult Low Dose Aspirin) atorvastatin 20 mg tablet 20 mg PO DAILY 12/28/19 12/13/20 01/19/21 History gabapentin 300 mg capsule 300 mg PO BEDTIME 01/07/20 12/13/20 01/19/21 History sertraline 50 mg tablet 50 mg PO DAILY 02/16/20 12/13/20 01/19/21 History dapagliflozin 10 mg tablet 10 mg PO DAILY 12/13/20 12/13/20 12/13/20 History (Farxiga) metoprolol tartrate 50 mg tablet 1 tab PO TID 12/13/20 12/13/20 01/19/21 History gabapentin 300 mg capsule 1 cap PO TID 01/19/21 01/19/21 Unknown History insulin glargine 100 unit/mL (3 30 unit SUBCUT BEDTIME 01/19/21 01/19/21 Unknown History mL) subcutaneous pen (Lantus Solostar U-100 Insulin) omeprazole 20 mg capsule,delayed 1 cap PO DAILY 01/19/21 01/19/21 01/19/21 History release Exam Airway Mallampati Class: III TM Dist: >3cm Neck ROM: Full Heart: RRR Lungs: CTA Assessment and Plan Final Anesthetic Review Family History of Problems with Anesthesia: No History of Problems with Anesthesia: No
[2021-01-19 06:44] VITALS: BMI 37.1
--- NOTE | 2021-01-19 06:47 | MHC.SHP ---
Pre-Procedural Eval Section A Date of Service: 01/19/21 Section B Chief Complaint: GI Bleed Details of Present Illness: nausea, hx of gi bleed Relevant Family History (Specify if Yes): No Relevant Social History: Other (specify) (thc) Present Medications: see Short Stay Collaborative assessment Medical History: Significant History (Anxiety Constipation Diabetes Diverticulosis GERD (gastroesophageal reflux disease) Hematochezia History of diverticulitis Hyperlipidemia Hypertension Lower GI bleed Mitral valve disease Right ankle pain) History of Previous Operations: Relevant previous surgery/procedure and date(s) ( H/O mitral valve repair Status post Ammy procedure (10/21/19)) Allergies: Allergies Allergy/AdvReac Type Severity Reaction Status Date / Time morphine [MORPHINE] Allergy Unknown HIVES, rash Verified 07/22/20 15:20 Review of Systems Sugical H&P ROS: Negative: Constitution, Cardiovascular, Respiratory, Neurological, Psychiatric, Hem-Onc, Allergic/Immunologic, Gastrointestinal, Genitourinary, Musculoskeletal, Integumentary, Endocrine and Eyes/Ears/Nose/Throat Exam Surgical H&P Exam: Normal: HEENT, Normal: Heart, Normal: Lungs, Normal: Extremities, Normal: Abdomen, Normal: Skin and Normal: Neurological Plan Diagnosis/Plan: Unchanged I have reviewed the history and physical and performed a pertinent physical examination on my patient. No changes have occurred unless specified. Did not take prep so only doing EGD today
[2021-01-19 07:02] VITALS: BP 117/72; PULSE 71; RESP 16; TEMP 36.3; O2SAT 95
[2021-01-19 07:04] LABS: Glucose, Whole Blood 289 mg/dL (60-115)
[2021-01-19] MEDS: Lactated Ringers 1,000 ML 100 ML IVCONT (07:19)
--- NOTE | 2021-01-19 07:25 | PC.NURSE ---
Patient arrived and stated Pharmacy did not contact me about the prep yesterday. I was hungry since I did not eat for two days so I ate a sandwich before 6pm last night. I also had clear broth, [place] ice, and drank lots of water. When asked about bowel movements after the prep on 01/17, he stated My bowel movements have been normal, the last time I went was yesterday afternoon. The day before yesterday, I took the two pills and about half the prep since the prep was starting to get clumpy. Dr Concepcion and anesthesia aware. Continuing with upper endoscopy, colonoscopy due to be rescheduled. Patient educated on colon prep.
--- NOTE | 2021-01-19 08:11 | P.BOP_ITS ---
Brief Operative Note Date of Service: 01/19/21 Pre-op diagnosis: nausea, GI bleed Post-op diagnosis: same Procedure: see op note Surgeon: Wandy Concepcion MD Anesthesia: MAC Was an Tool Lapper Hand used for this Procedure?: No Estimated blood loss (mL): 0 Condition: stable Disposition: PACU
--- NOTE | 2021-01-19 08:12 | P.OP_ITS ---
Operative Note Operative Note Date of Service: 01/19/21 Narrative: Procedure Description: EGD FLEXIBLE TRANSORAL UPPER GASTROINTESTINAL ENDOSCOPY UPPER ENDOSCOPY Consent: Indications for the procedure and potential complications of bleeding, perforation, reaction to medications and missed diagnosis were discussed with the patient and informed consent was obtained. Instrument: Olympus GIF H 190 J mid size upper endoscope Monitoring: Vital signs and clinical assessment, continuous EKG monitoring, Pulse oximetry, Carbon Dioxide monitoring and blood pressure monitoring were done throughout the procedure. Procedure: The patient was placed in the left lateral decubitis position and pre-procedure medications were administered and a bite block was placed. The endoscope was inserted into the mouth and advanced under direct vision to the third part of duodenum. A careful inspection was made as the upper endoscope was withdrawn including a retroflexed examination of the proximal stomach; Findings and interventions are described below. Findings: Larynx:normal Esophagus: GE junction at 38 cm, diaphragm hiatus at 40 cm, LA grade A esophagitis noted Stomach: Patchy gastric erythema with erosions at antrum. Biopsies were obt ained. Grade 2 flap valve on retroflexed examination of the cardia. Duodenum: Patchy erythema in bulb and second part of duodenum, bx taken Intervention: Biopsies as noted above Impression/Findings: duodenitis, appears to be peptic in origin erosive gastritis esophagitis PLAN: await bx results, if H pylori pos then treat confirm PPI compliance- if taking then increase dose, otherwise change to another formulation per med list on aspirin, will check if on any other NSAIDs needs to rebook colonsocopy and be compliant with prep next time
[2021-01-19 08:20] VITALS: BP 122/97; PULSE 63; RESP 15; TEMP 36.6; O2SAT 98
[2021-01-19 08:35] VITALS: BP 117/78; PULSE 70; RESP 17; TEMP 36.6; O2SAT 98
--- NOTE | 2021-01-19 10:46 | HO.POSTANES ---
Post Anesthesia Evaluation Post Anesthesia Evaluation Vital Signs: Vital Signs Temp Pulse Resp BP Pulse Ox 01/19/21 08:35 97.8 F 70 17 117/78 98 01/19/21 08:20 97.8 F 63 15 122/97 H 98 01/19/21 07:02 97.4 F 71 16 117/72 95 Anesthesia: Monitored Mental Status: Awake Pain Control: Satisfactory Nausea/Vomiting: None Hydration: Adequate Anesthesia-Related Issues: No Anes. Related Issues
== END 2021-01-19 09:18 | disposition home or self-care (01) ==
PROVIDERS: PCP Internal Medicine; Visit Provider Internal Medicine Gastroenterology
PROC: (CPT 43239; principal; 2021-01-19 07:30)
DX: K29.50 Unspecified chronic gastritis without bleeding (principal); K20.90 Esophagitis, unspecified without bleeding; K29.80 Duodenitis without bleeding; K44.9 Diaphragmatic hernia without obstruction or gangrene; K21.9 Gastro-esophageal reflux disease without esophagitis; Z90.49 Acquired absence of other specified parts of digestive tract; I10 Essential (primary) hypertension; E11.9 Type 2 diabetes mellitus without complications; Z79.4 Long term (current) use of insulin; Z79.899 Other long term (current) drug therapy; Z79.82 Long term (current) use of aspirin; Z72.89 Other problems related to lifestyle; F12.90 Cannabis use, unspecified, uncomplicated
CPT/HCPCS: 43239; 82947; 88305; 88342

== ENCOUNTER 2021-03-28 10:45 | Outpatient (REF) | payer OTHER, SELFPAY | END 2021-03-28 10:46 | disposition home or self-care (01) | LOC: HO.WFDLDS 10:45 | PROVIDERS: Visit Provider Internal Medicine | DX: Z20.822 Contact with and (suspected) exposure to COVID-19 (principal) | CPT/HCPCS: C9803; U0003; U0005 ==

== ENCOUNTER 2021-04-20 15:35 | Outpatient (REF) | payer OTHER, SELFPAY ==
[2021-04-20 15:51] LABS: COVID-19 Test Positive (Negative); IDNOW Serial# 16C4AD1C
== END 2021-04-20 15:36 | disposition home or self-care (01) ==
LOC: HO.LAB 15:35
PROVIDERS: Visit Provider Internal Medicine
DX: Z20.822 Contact with and (suspected) exposure to COVID-19 (principal)
CPT/HCPCS: 87635; C9803

== ENCOUNTER → 2021-09-05 15:16 | Outpatient (BNVA) | payer OTHER, SELFPAY | PROVIDERS: PCP Internal Medicine; Visit Provider Surgery | DX: K57.32 Diverticulitis of large intestine without perforation or abscess without bleeding (principal); R10.12 Left upper quadrant pain | CPT/HCPCS: 99212 ==

== ENCOUNTER 2021-11-01 07:49 | Outpatient (REF) | payer OTHER, SELFPAY ==
--- NOTE | ~2021-11-01 | CT_ITS ---
EXAMINATION: CT ABDOMEN AND PELVIS WITHOUT CONTRAST CLINICAL INFORMATION: Diverticulitis of large intestine. COMPARISON: CT abdomen and pelvis 12/13/2020. TECHNIQUE: Multidetector volumetric imaging was performed from the superior aspect of the liver through the pubic symphysis. Sagittal and coronal reformatted images were obtained on the technologist's workstation. This CT examination was performed using dose optimization techniques as appropriate, variously including the following: *Automated exposure control *Adjustment of mA and/or kV according to patient size (this includes techniques or standardized protocols for targeted exams where dose is matched to indication/reason for exam; i.e. extremities or head) *Use of iterative reconstruction technique DLP: 689 mGy-cm FINDINGS: LUNG BASES: The lung bases are clear with plate-like atelectasis or scarring in the lingula. The heart size is normal. There is mitral valve calcification. LIVER, GALLBLADDER, AND BILIARY TREE: The liver is normal in size, shape, and attenuation. No focal hepatic lesion or biliary ductal dilatation is present. The gallbladder is unremarkable with no evidence of radiopaque gallstones, gallbladder wall thickening, or obvious pericholecystic inflammatory changes. PANCREAS: Unremarkable. SPLEEN: Unremarkable. ADRENAL GLANDS: Unremarkable. KIDNEYS AND URETERS: The kidneys are normal in size, shape, and attenuation. There is a 3 mm nonobstructive radiopaque calculi mid pole right kidney without caliectasis. No additional radiopaque calculi seen. There is no hydronephrosis. BLADDER: Unremarkable. GASTROINTESTINAL TRACT: There is scattered stool and gas seen throughout the colon without distention. There are postsurgical annular sutures in the sigmoid colon with patent lumen. The small bowel loops are normal caliber. The appendix is normal caliber. ABDOMINAL WALL: There are postsurgical changes in the lower anterior abdominal wall. No evidence of hernia. LYMPH NODES: Normal. VASCULAR: Unremarkable. PELVIC VISCERA: The prostate gland is normal size. The periprostatic fat planes are preserved. There is no free fluid. No abnormal sized pelvic or inguinal lymph nodes seen. OSSEOUS STRUCTURES: Bone windows reveal no lytic or sclerotic process. CT/CT abdomen pelvis wo con IMPRESSION: Nonobstructive 3 mm radiopaque calculi in midpole right kidney without caliectasis. No hydronephrosis seen. Postsurgical changes abdominal wall without hernia. Postsurgical changes with annular sutures sigmoid colon with widely patent lumen. Colonic diverticulosis without diverticulitis. Fleischner guidelines were followed.
== END 2021-11-01 07:50 | disposition home or self-care (01) ==
LOC: HO.CT 07:49
PROVIDERS: PCP Internal Medicine; Visit Provider Surgery
DX: R10.12 Left upper quadrant pain (principal); K57.32 Diverticulitis of large intestine without perforation or abscess without bleeding
CPT/HCPCS: 74176

== ENCOUNTER 2021-12-23 07:53 | Emergency (ER) | payer OTHER, SELFPAY ==
[2021-12-23 08:58] VITALS: BP 187/110; PULSE 94; RESP 20; TEMP 37.7; O2SAT 97; BMI 35.5
--- NOTE | 2021-12-23 09:43 | ED_ITS ---
HPI - URI/Sore Throat General Chief Complaint: Upper Respiratory Symptoms Stated Complaint: Sore throat, ear ache Time Seen by Provider: 12/23/21 09:13 Source: patient Mode of arrival: ambulatory Limitations: no limitations History of Present Illness HPI Narrative: 51 yo male with history of GERD, HTN, HLD, anxiety, back pain, recurrent sigmoid diverticulitis w/ perforation s/p [place] procedure and colostomy reversal, hx LGIB who presents to the ER for evaluation of sore throat, chills, and right ear pain for the last 1 day. He reports it started with a sore throat that progressed to body aches and chills. He reports just generally not feeling well. He denies any sick contacts. He called out of work today and his boss told him he needed to get a doctor's note in order to be absent from work. He is vaccinated for COVID. He denies any fevers, shortness of breath, chest pain, cough, nausea, vomiting, abdominal pain, urinary symptoms. MD elicited complaint: sore throat and nasal congestion Onset (ago): day(s) (1) Consistency: progressively worsening Severity: moderate Description of mucous: clear Able to tolerate fluids by mouth: Yes Exacerbating factors: nothing Relieving factors: nothing Associated symptoms: chills, myalgias, headache, rhinorrhea, nasal congestion and sore throat Treatments prior to arrival: none Related Data Home Medications Medication Instructions Recorded Confirmed aspirin 81 mg tablet,delayed 81 mg PO DAILY 12/28/19 09/06/21 release (Adult Low Dose Aspirin) atorvastatin 20 mg tablet 20 mg PO DAILY 12/28/19 09/06/21 gabapentin 300 mg capsule 300 mg PO BEDTIME 01/07/20 09/06/21 sertraline 50 mg tablet 50 mg PO DAILY 02/16/20 05/03/21 dapagliflozin 10 mg tablet 10 mg PO DAILY 12/13/20 05/03/21 (Farxiga) metoprolol tartrate 50 mg tablet 1 tab PO TID 12/13/20 09/06/21 gabapentin 300 mg capsule 1 cap PO TID 01/19/21 05/03/21 insulin glargine 100 unit/mL (3 30 unit subcut BEDTIME 01/19/21 09/06/21 mL) subcutaneous pen (Lantus Solostar U-100 Insulin) omeprazole 20 mg capsule,delayed 1 cap PO DAILY 01/19/21 09/06/21 release Previous Rx's Medication Instructions Recorded docusate sodium 100 mg capsule 100 mg PO BID PRN Constipation #14 10/10/20 (Colace) caps acetaminophen 500 mg tablet 1,000 mg PO QID PRN pain #30 tabs 11/22/20 bisacodyl 5 mg tablet,delayed 10 mg PO ONCE 1 day #2 tabs 12/15/20 release (Dulcolax (bisacodyl)) ondansetron 4 mg disintegrating 4 mg PO Q8H PRN nausea and 12/15/20 tablet vomiting #7 tabs polyethylene glycol 3350 17 gram 238 g PO ONCE colonoscopy prep #1 12/15/20 oral powder packet (Miralax) ea peg-electrolyte solution 420 gram 240 ml PO Q10M #4,000 mL 04/25/21 oral solution (GaviLyte-N) Allergies Allergy/AdvReac Type Severity Reaction Status Date / Time morphine [MORPHINE] Allergy Unknown HIVES, rash Verified 09/05/21 15:32 Review of Systems Review of Systems: Constitutional: No Fever, + Chills ENT/Mouth: +sore throat,+ Rhinorrhea, No Swallowing Difficulty, +Otalgia Eyes: No Eye Pain, No Swelling, No Redness Cardiovascular: No Chest Pain, No SOB, No Orthopnea, No Edema Respiratory: No Cough, No Sputum Gastrointestinal: No Nausea, No Vomiting, No Diarrhea, No abdominal Pain Genitourinary: No Dysuria, No Urinary Frequency, No Hematuria Musculoskeletal: No joint pain, No Myalgias Skin: No Skin Lesions, No rash Neuro: No Weakness, No Numbness, No Dizziness, + Headache Heme/Lymph: No Bruising, No Lymphadenopathy PMFSH Past Medical History Medical History Anxiety Constipation Diabetes Diverticulosis GERD (gastroesophageal reflux disease) Hematochezia History of diverticulitis Hyperlipidemia Hypertension Lower GI bleed Mitral valve disease Renal insufficiency Right ankle pain Sleep apnea Surgical History H/O mitral valve repair History of colonoscopy History of mitral valve repair Status post Ammy procedure (10/21/19) Family History Family History Mother Diabetes mellitus Father Diabetes mellitus Social History Social History Household Members: Significant Other Housing: Apartment Are you a primary child care nurse to a significant other at home: No Do you presently have visiting nurse or other home services: Yes ([facility]) Alcohol intake: current Alcohol intake frequency: a few times a month Alcohol type: beer Patient Tobacco Use Status: Never used Tobacco Second Hand Smoke Exposure: No Substance Use Type: Marijuana Advance Directives: Yes Advance Directives on File: Yes Advance Directives Date on File: 02/22/20 service: No Current occupational status: unemployed Physical Exam Vital Signs: Vital Signs: Last Vital Signs Temp 99.8 F 12/23/21 08:58 Pulse 94 12/23/21 08:58 Resp 20 12/23/21 08:58 BP 187/110 H 12/23/21 08:58 Pulse Ox 97 12/23/21 08:58 O2 Del Method 12/23/21 08:58 BMI result Body Mass Index 35.5 Appearance: Alert. Oriented X3. No acute distress. Eyes: Pupils equal, round and reactive to light. ENT: Pharynx normal. Uvula midline, no tonsillar exudate or swelling. Normal tympanic membranes bilaterally. Neck: Normal inspection. Neck supple. CVS: Normal heart rate and rhythm. Pulses normal. Respiratory: No respiratory distress. Breath sounds normal. Abdomen: Soft and nontender. +BS x4 Skin: Skin warm and dry. Normal skin color. Normal skin turgor. No rashes. Extremities: No lower extremity edema. No calf swelling Neuro: Oriented X 3. No motor deficit. No sensory deficit. Course Course Course Narrative: 51-year-old male with history of HTN, HLD, GERD, anxiety, sigmoid diverticulitis status post Ammy procedure and colostomy reversal who presents to the ER for evaluation of sore throat, chills, body aches and earache that started yesterday. No fevers, chest pain or shortness of breath at home. He is vacc inated for COVID. Today his COVID swab is negative. His vital signs are unremarkable, no fevers. His exam is unremarkable. His symptoms are most likely due to viral URI. Symptomatic care discussed. Return precautions also discussed. Stable for discharge home. Work note provided per request MDM - URI/Sore Throat Lab Data Labs: Lab Results 12/23/21 Range/Units 09:49 COVID-19 (CLAIRE) Negative (Negative) COVID-19 Clin Com See Note Discharge Plan Discharge Clinical Impression: Upper respiratory infection Patient Disposition: Home, Self-Care Instructions: Upper Respiratory Infection (ED) Additional Instructions: You tested negative for COVID-19 today. Your symptoms are most likely due to another viral URI. Treatment is supportive care, treat your symptoms as needed with [id number] cold and flu medications. Rest and drink plenty of fluids. Take Motrin and/or Tylenol as needed for fevers and body aches. Follow-up with your doctor as needed. If you develop new or worsening symptoms call 911 or come back to the ER for further evaluation. Prescriptions: No Action peg-electrolyte soln [GaviLyte-N] 420 gram recon soln 240 ml PO Q10M Qty: 4000 0RF Rx Instructions: until fecal effluent is clear sertraline 50 mg Tablet 50 mg PO DAILY acetaminophen 500 mg tablet 1,000 mg PO QID PRN (Reason: pain) Qty: 30 0RF gabapentin 300 mg Capsule 300 mg PO BEDTIME docusate sodium [Colace] 100 mg capsule 100 mg PO BID PRN (Reason: Constipation) Qty: 14 0RF Farxiga 10 mg Tablet 10 mg PO DAILY metoprolol tartrate 50 mg tablet 1 tab PO TID polyethylene glycol 3350 [Miralax] 17 gram powder in packet 238 g PO ONCE Qty: 1 0RF Rx Instructions: Mix the full container with 64 ounces of gatorade the night before colonosc opy starting at 9 PM. Drink one glass every 15 mins. bisacodyl [Dulcolax (bisacodyl)] 5 mg tablet,delayed release (DR/EC) 10 mg PO ONCE 1 Days Qty: 2 0RF Rx Instructions: Take day before colonoscopy at 6 PM ondansetron 4 mg tablet,disintegrating 4 mg PO Q8H PRN (Reason: nausea and vomiting) Qty: 7 0RF Rx Instructions: can tke with colon prep if needed gabapentin 300 mg capsule 1 cap PO TID omeprazole 20 mg capsule,delayed release(DR/EC) 1 cap PO DAILY Lantus Solostar U-100 Insulin 100 unit/mL (3 mL) insulin pen 30 unit subcut BEDTIME atorvastatin 20 mg tablet 20 mg PO DAILY aspirin [Adult Low Dose Aspirin] 81 mg tablet,delayed release (DR/EC) 81 mg PO DAILY Referrals: Daniel Cisneros MD [Primary Care Provider] - Stand Alone Forms: Work/School Release Interventions: ED Discharge Assessment Last Done: 12/23/21 11:11 Discharge Date/Time: 12/23/21 11:12
[2021-12-23 10:30] LABS: COVID-19 Test Negative (Negative); IDNOW Serial# 16C4AD1C
== END 2021-12-23 11:12 | disposition home or self-care (01) ==
PROVIDERS: Physician Assistant; Emergency Provider Emergency Medicine; PCP Internal Medicine
DX: J06.9 Acute upper respiratory infection, unspecified (principal); J02.9 Acute pharyngitis, unspecified; Z20.822 Contact with and (suspected) exposure to COVID-19; E11.9 Type 2 diabetes mellitus without complications; I10 Essential (primary) hypertension; E78.5 Hyperlipidemia, unspecified; Z79.02 Long term (current) use of antithrombotics/antiplatelets; Z79.899 Other long term (current) drug therapy; Z79.82 Long term (current) use of aspirin; Z79.4 Long term (current) use of insulin; Z95.4 Presence of other heart-valve replacement
CPT/HCPCS: 87635; 99283

== ENCOUNTER 2022-01-25 12:21 | Inpatient (IN) | payer OTHER, SELFPAY ==
[2022-01-25] VITALS (10 sets, daily range): BP systolic 158–196; BP diastolic 98–137; PULSE 58–107; RESP 16–20; TEMP 36.1–37.2; O2SAT 96–99; BMI 35.5
--- NOTE | ~2022-01-25 | MR_ITS ---
EXAMINATION: MRI BRAIN WITHOUT CONTRAST CLINICAL INFORMATION: Stroke. COMPARISON: CT head 09/29/2018. TECHNIQUE: Multiplanar MR imaging of the brain was performed without contrast. FINDINGS: There is nodular subependymal zarate matter heterotopia distributed along the lateral margins of the atria and left temporal horn. No acute territorial infarct. No pathological magnetic susceptibility artifact. Intracranial vascular flow voids are maintained. There is no intracranial mass effect or midline shift. No abnormal extra-axial collection. Lateral and third ventricles are proportionate to the subarachnoid spaces. No hydrocephalus. Midline structures including the cervicomedullary junction are normal. No acute bone marrow signal changes. There is no mastoid or middle ear effusion. There are retention cysts within both maxillary sinuses and trivial mucosal thickening within ethmoid air cells. Globes and orbits are symmetric. 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 Otherwise unremarkable brain MRI. No evidence of acute territorial infarct or hemorrhage. No intracranial mass effect or hydrocephalus.
--- NOTE | ~2022-01-25 | CT_ITS ---
EXAMINATION: CT ABDOMEN AND PELVIS WITHOUT CONTRAST CLINICAL INFORMATION: Flank pain on left COMPARISON: 11/01/2021 TECHNIQUE: Multidetector volumetric imaging was performed from the superior aspect of the liver through the pubic symphysis. Sagittal and coronal reformatted images were obtained on the technologist's workstation. This CT examination was performed using dose optimization techniques as appropriate, variously including the following: *Automated exposure control *Adjustment of mA and/or kV according to patient size (this includes techniques or standardized protocols for targeted exams where dose is matched to indication/reason for exam; i.e. extremities or head) *Use of iterative reconstruction technique DLP: 690 mGy-cm FINDINGS: LUNG BASES: The visualized lung bases are unremarkable. LIVER, GALLBLADDER, AND BILIARY TREE: The liver is normal in size, shape, and attenuation. No focal hepatic lesion or biliary ductal dilatation is present. The gallbladder is unremarkable with no evidence of radiopaque gallstones, gallbladder wall thickening, or obvious pericholecystic inflammatory changes. PANCREAS: Unremarkable. SPLEEN: Unremarkable. ADRENAL GLANDS: Unremarkable. KIDNEYS AND URETERS: No hydronephrosis. Small nonobstructing calculi once again seen on the right. BLADDER: Unremarkable. GASTROINTESTINAL TRACT: The small and large bowel are unremarkable. The appendix is unremarkable. ABDOMINAL WALL: Beginnings of bilateral inguinal herniations of omental fat right greater than left. LYMPH NODES: Some shotty nodes. No bulky adenopathy. VASCULAR: Unremarkable. PELVIC VISCERA: Unremarkable. OSSEOUS STRUCTURES: Unremarkable. CT/CT abdomen pelvis wo IV con IMPRESSION: No acute finding here. Nonobstructing renal calculus once again seen on the right. No hydronephrosis. The bowel pattern is nonobstructing. There is no free fluid. Other findings as noted above. Fleischner guidelines were followed.
--- NOTE | 2022-01-25 12:23 | ECG_ITS ---
Test Reason : miquel Blood Pressure : / mmHG Vent. Rate : 105 BPM Atrial Rate : 105 BPM P-R Int : 154 ms QRS Dur : 104 ms QT Int : 378 ms P-R-T Axes : 053 055 041 degrees QTc Int : 499 ms Sinus tachycardia RSR' or QR pattern in V1 suggests right ventricular conduction delay Borderline ECG When compared with ECG of 13-DEC-2020 13:56, Nonspecific T wave abnormality no longer evident in Lateral leads Referred By: Generic ED Physician Electronically Signed By:SHANELLE MAURICIO MD
[2022-01-25 12:31] LABS: Glucose, Whole Blood > 600 mg/dL (60-115)
--- OUTSIDE RECORDS SUMMARY | 2022-01-25 12:35 | XMS_ITS ---
:1970 Author Care Team Providers Name Role Phone KEISHA OLMEDO MD Primary Care Provider [phone] Allergies Code Code System Name Reaction Severity Status Onset 7052 RxNorm Morphine ? ? Active ? Medications Name Status Start Date Stop Date ? ? amlodipine Active ? Not available amoxicillin 875 mg-potassium clavulanate 125 mg tablet Completed ? 10/06/2020 TAKE 1 TABLET BY MOUTH 2 TIMES A DAY,X10 DAYS, WITH FOOD,YOGURT atorvastatin Completed ? 10/06/2020 atorvastatin 20 mg tablet Active ? Not av ailable baclofen 10 mg tablet Active ? Not availa ble TAKE 1 TABLET BY MOUTH THREE TIMES A DAY benazepril 10 mg tablet Active ? Not avai lable TAKE 1 TABLET BY MOUTH EVERY DAY cefuroxime axetil 500 mg tablet Completed ? 10/06/2020 TAKE 1 TABLET BY MOUTH EVERY 12 HOURS chlorhexidine gluconate 0.12 % mouthwash Completed ? 10/06/2020 USE 15ML BY MOUTH TO SWISH AND SPIT OUT TWICE A DAY Chocolate Laxative 15 mg chewable tablet Active ? Not available TKAE 1/2 TAB BY MOUTH DAILY X 5 DAYS NEEDED FOR CONSTIPATION clotrimazole-betamethasone 1 %-0.05 % topical cream Completed ? 10/06/2020 APPLY TO THE AFFECTED AND SURROUNDING A REAS OF SKIN BY TOPICAL ROUTE 2 TIMES PER DAY IN THE MORNING AND EVENING FOR 2 WEEKS cyclobenzaprine 10 mg tablet Active ? Not available TAKE 1 TABLET BY MOUTH EVERY 8 HOURS FOR MUSCLE SPASM dicyclomine 20 mg tablet Active ? Not abdelrahman ilable TAKE 1 TABLET BY MOUTH 4 TIMES DAILY NEEDED (FOR DIARRHEA). docusate sodium Active ? Not available docusate sodium 100 mg capsule Active ? N ot available TAKE 1 CAPSULE BY MOUTH TWICE A DAY NEEDED FOR CONSTIPATION doxycycline hyclate 100 mg capsule Active ? Not available Take 1 capsule twice a day by oral route for 10 days. caution photosensitivity doxycycline hyclate 100 mg tablet Completed ? 10/06/2020 Take 1 tablet twice a day by oral route for 10 days. doxycycline monohydrate 100 mg capsule Active ? Not available TAKE 1 CAPSULE TWICE A DAY BY ORAL ROUTE FOR 10 DAYS. erythromycin 500 mg tablet Active ? Not a vailable PLEASE SEE ATTACHED FOR DETAILED DIRECTIONS gabapentin 300 mg capsule Active ? Not av ailable hydrocodone 5 mg-acetaminophen 325 mg tablet Completed ? 10/06/2020 TAKE 1 TABLET EVERY 6 HOURS NEEDED F OR SEVERE PAIN W FOOD WILL CAUSE DROWSINESS. DO NOT DRIVEWORK hydromorphone 2 mg tablet Completed ? 2020 TAKE 1 TABLET BY MOUTH EVERY 6 HOURS FOR 7 DAYS NEEDED FOR P AIN hydroxyzine HCl 25 mg tablet Completed ? 10/2020 ibuprofen 600 mg tablet Active ? Not avai lable TAKE 1 TABLET BY MOUTH THREE TIMES A DA Y X3 DAYS NEEDED FOR PAIN MILD THEN NEEDED ibuprofen 800 mg tablet Active ? Not avai lable TAKE 1 TABLET EVERY 8 HOURS NEEDED FOR PAIN FOR 14 DAYS ketoconazole 2 % topical cream Active ? N ot available APPLY TO THE R GROIN AFFECTED AREA(S) BY TOPICAL ROUTE ONCE EMILY LY X 7 DAYS magnesium citrate oral solution Completed ? 10/06/2020 DRINK 1 BOTTLE OF MAG CITRATE STARTING AT 09 00 A.M., DAY PRIOR TO SURGERY metoprolol tartrate 50 mg tablet Active ? Not available TAKE 1 TABLET BY MOUTH THREE TIMES A DAY metronidazole 250 mg tablet Active ? Not available TAKE 2 TABLETS BY MOUTH EVERY 8 HOURS omeprazole Active ? Not available omeprazole 20 mg capsule,delayed release Active ? Not available TAKE 1 CAPSULE BY MOUTH TWICE A DAY BEFORE MEALS ondansetron HCl 4 mg tablet Active ? Not available TAKE 1 TAB BY MOUTH EVERY 8 HOURS NEEDED FOR NAUSEA AND VOMI TING oxycodone 5 mg tablet Active ? Not availa ble TAKE 1 TABLET BY MOUTH TWICE A DAY NEEDED FOR PAIN Pain Relief Extra Strength 500 mg tablet Active ? Not available TAKE 2 TABS BY MOUTH FOUR TIMES A DAY NEEDED FOR FEVER OR PA IN permethrin 5 % topical cream Completed ? 10/2020 APPLY ON THE SKIN AT NIGHT, LEAVE ON FOR 12 HOURS, THEN WASH TH EREAFTER sertraline 50 mg tablet Active ? Not avai lable simvastatin Completed ? 07/11/2018 sulfamethoxazole 800 mg-trimethoprim 160 mg tablet Completed ? 10/06/2020 TAKE 1 TABLET BY MOUTH TWICE A DAY FOR 7 DAYS tamsulosin 0.4 mg capsule Active ? Not av ailable TAKE 1 CAPSULE BY MOUTH EVERY DAY vancomycin 125 mg capsule Completed ? 2020 TAKE 1 CAPSULE BY MOUTH EVERY 6 HOURS FOR 10 DAYS Problems None recorded. Procedures Date Name Performed by ? 07/11/2018 XR, Lumbosacral Spine, 2 or 3 View [facility] [address], [place] [address] ([address]) 07/11/2018 XR, Elbow, 3 or More View [facility] [address], [place] [address] (Work Place) Notes: Cardiac Micro valve implant Results Lab Results Date Name Specimen Result Interpretation Description Value Range Status Address ? 10/06/2020 Culture, Abscess ? Specimen swab chest ? Fin john [facility] Superficial Description lt areola Reference Wound region Laboratori es: [address], [place] ? ? Abscess ? Special none ? Final [facility] e Requests Referenc e Laboratori es: [address], [place] ? ? Abscess ? gram Stain ? ? Final [facility] Reference Laboratori es: [address], [place] ? ? Abscess ABNORM Culture ? ? Final [facility] e [place] Reference Laboratori es: [address], [place] ? ? Abscess ? Report Status final ? Final [facility] 10/09/2020 Refere nce Laboratori es: [address], [place] ? ? Abscess ? Organism ? ? Final [facility] te Reference Laboratori es: [address], [place] ? ? Abscess ? Method method min. ? Final [facility] inhib. Reference conc. Laboratori es: (mcg/mL) [address], [place] ? ? Abscess Suscep Ciprofloxacin ciprofloxac ? Fin john [facility] tible in Reference susceptible Labor atories: [address], [place] ? ? Abscess Suscep Clindamycin clindamycin ? Final [facility] tible susceptible Refer ence Laboratori es: [address], [place] ? ? Abscess Resist Erythromycin erythromyci ? Amber l [facility] ant n resistant Refer ence Laboratori es: [address], [place] ? ? Abscess Suscep Inducible inducible ? Final [facility] tible Clindamycin clindamyci R eference negative Laborato alex: [address], [place] ? ? Abscess Suscep Levofloxacin levofloxaci ? [facility] tible n Reference susceptible Labor atories: [address], [place] ? ? Abscess Suscep Linezolid linezolid ? Final [facility] tible susceptible Refer ence Laboratori es: [address], [place] ? ? Abscess Resist Oxacillin oxacillin ? Final [facility] ant resistant Referen ce Laboratori es: [address], [place] ? ? Abscess Suscep Rifampin ? ? [facility] [address], [place] ? ? Abscess Suscep Tetracycline tetracyclin ? Amber l [facility] tible e Reference susceptible Labor atories: [address], [place] ? ? Abscess Suscep Trimeth/sulfa trimeth/sul ? Fin al [facility] tible methox famethox Referenc e susceptible Labor atories: [address], [place] ? ? Abscess Suscep Vancomycin vancomycin ? Final [facility] tible susceptible Refer ence Laboratori es: [address], [place] 11/14/2018 Culture, Wound ? Specimen swab R ? Final [facility] Superficial Description axilla Reference Wound Laboratori es: [address], [place] ? ? Wound ? Special none ? Final [facility] Requests Referenc e Laboratori es: [address], [place] ? ? Wound ? gram Stain ? ? Final [facility] ate Reference Laboratori es: [address], [place] ? ? Wound ABNORM Culture ? ? Final [facility] [place] Reference Laboratori es: [address], [place] ? ? Wound ? Report Status final ? Final [facility] 11/17/2018 Refere nce Laboratori es: [address], [place] Past Encounters 10/06/2020 Abscess; Tinea Corporis Sarah Evette Tejeda PA: [address] [place] [address], Ph. Social History Tobacco Smoking Status Never Smoker Vaccine List None recorded. Plan of Care Reminders Provider Appointments None recorded. ? ? Lab None recorded. ? ? Referral None recorded. ? ? Procedures None recorded. ? ? Surgeries None recorded. ? ? Imaging None recorded. ? ? Vitals 10/06/2020 02:10PM Established Patient Blood Pressure 158/112 mm[Hg] 11/14/2018 01:10PM Established Patient Blood Pressure (1) 182/128 mm[Hg] (2) 170/117 mm[Hg] 07/11/2018 05:05PM New Patient Blood Pressure 189/125 mm[Hg]
[2022-01-25 12:55] LABS: MANUAL DIFF FLAG NO
[2022-01-25 12:57] LABS: Basophils Absolute Auto 0.1 X10*3/uL (0.0-0.2); Basophils Percent Auto 0.5 % (0-2); Eosinophils Absolute Auto 0.1 X10*3/uL (0.0-0.4); Eosinophils Percent Auto 0.5 % (0-4); Hematocrit 50.1 % (42.0-52.0); Hemoglobin 16.6 g/dl (14.0-18.0); Imm Gran Abs Auto 0.06 X10*3/uL (0.00-0.03); Imm Gran Pct Auto 0.5 % (0.0-0.4); Lymphocytes Absolute Auto 2.2 X10*3/uL (1.2-4.9); Mean Corpuscular HGB Conc 33.1 g/dl (31.0-36.0); Mean Corpuscular Hemoglobin 29.2 pg (27.0-33.0); Monocytes Absolute Auto 0.6 X10*3/uL (0.1-1.2); Monocytes Percent Auto 5.7 % (2-11); Neutrophils Absolute Auto 8.4 x10*3/uL (2.0-8.3); Neutrophils Percent Auto 73.8 % (45-73); Platelet Count 232 X10*3/uL (160-400); Red Blood Count 5.69 X10*6/uL (4.60-5.80); Red Cell Distribution Width 13.9 % (11.0-16.0); White Blood Count 11.3 X10*3/uL (4.8-10.8)
[2022-01-25] MEDS: Labetalol HCL 100 MG/20 ML VIAL 10 MG IVPUSH (13:00)
[2022-01-25] MEDS: Insulin Regular, Human 100 UNIT/ML 3 ML VIAL 10 UNIT IVPUSH (13:03)
[2022-01-25] MEDS: Lactated Ringers 1,000 ML 999 ML IV ×3 (13:04→14:41)
--- NOTE | 2022-01-25 13:07 | ED.DIZZY ---
HPI - Dizziness General Chief Complaint: Dizziness Stated Complaint: dizzy, blurry vision Time Seen by Provider: 01/25/22 12:39 Source: patient Mode of arrival: ambulatory Limitations: no limitations History of Present Illness HPI Narrative: 51 yo male with hx of anxiety, GERD, HTN, HLD, DM on insulin states he has been compliant with his medications and diet. He did miss one day last week. Over the past few days he just hasn't felt well and his BS each day have been increasing. He has polyuria, polydipsia and it weiner when he urinates. He has no fevers or vomiting. He doesn't have an appetite though. He notes as of yesterday his BS has been off the chart with his glucometer. He denies ETOH or drug use. He felt when he was driving today that he was weak, dizzy and his vision was blurry MD elicited complaint: dizziness and lightheadedness Onset (ago): day(s) (3) Timing: gradual onset Severity: mild Description: lightheadedness and off-balance Context: other (blood sugar and BP high) History of similar symptoms: No Exacerbating factors: nothing Relieving factors: nothing Associated symptoms: nausea, malaise and weakness Related Data Home Medications Medication Instructions Recorded Confirmed aspirin 81 mg tablet,delayed 81 mg PO DAILY 12/28/19 09/06/21 release (Adult Low Dose Aspirin) atorvastatin 20 mg tablet 20 mg PO DAILY 12/28/19 09/06/21 gabapentin 300 mg capsule 300 mg PO BEDTIME 01/07/20 09/06/21 sertraline 50 mg tablet 50 mg PO DAILY 02/16/20 05/03/21 dapagliflozin 10 mg tablet 10 mg PO DAILY 12/13/20 05/03/21 (Farxiga) metoprolol tartrate 50 mg tablet 1 tab PO TID 12/13/20 09/06/21 gabapentin 300 mg capsule 1 cap PO TID 01/19/21 05/03/21 insulin glargine 100 unit/mL (3 30 unit subcut BEDTIME 01/19/21 09/06/21 mL) subcutaneous pen (Lantus Solostar U-100 Insulin) omeprazole 20 mg capsule,delayed 1 cap PO DAILY 01/19/21 09/06/21 release Previous Rx's Medication Instructions Recorded docusate sodium 100 mg capsule 100 mg PO BID PRN Constipation #14 07/12/21 (Colace) caps acetaminophen 500 mg tablet 1,000 mg PO QID PRN pain #30 tabs 11/22/20 bisacodyl 5 mg tablet,delayed 10 mg PO ONCE 1 day #2 tabs 12/15/20 release (Dulcolax (bisacodyl)) ondansetron 4 mg disintegrating 4 mg PO Q8H PRN nausea and 12/15/20 tablet vomiting #7 tabs polyethylene glycol 3350 17 gram 238 g PO ONCE colonoscopy prep #1 12/15/20 oral powder packet (Miralax) ea peg-electrolyte solution 420 gram 240 ml PO Q10M #4,000 mL 04/25/21 oral solution (GaviLyte-N) Allergies Allergy/AdvReac Type Severity Reaction Status Date / Time morphine [MORPHINE] Allergy Unknown HIVES, rash Verified 09/05/21 15:32 Review of Systems Review of Systems: Constitutional : No Weight loss, No Fever, No Chills, pos fatigue, pos malaise, pos anorexia ENT/Mouth : No sore throat, No Rhinorrhea Eyes: No Swelling, No Redness Cardiovascular : No Chest Pain, No SOB, NoEdema Respiratory : No Cough, No Sputum, No Wheezing Gastrointestinal : Positive Nausea, no Vomiting, no Diarrhea, no abdominal Pain, No Hematochezia, No Melena Genitourinary : pos Dysuria, pos Urinary Frequency, No Hematuria, No Urgency Musculoskeletal : No joint pain, No Myalgias, No Joint Swelling Skin : No Skin Lesions, No rash Neuro : No Weakness, No Numbness, pos Dizziness, No Headache Psych : No Anxiety/Panic, No Depression Heme/Lymph: No Bruising, No Lymphadenopathy Endocrine : pos Polyuria, pos Polydipsia All other systems reviewed and are negative. [facility] Past Medical History Attestation statement: The following information was validated with the patient. Medical History Anxiety Constipation Diabetes Diverticulosis GERD (gastroesophageal reflux disease) Hematochezia History of diverticulitis Hyperlipidemia Hypertension Lower GI bleed Mitral valve disease Renal insufficiency Right ankle pain Sleep apnea Surgical History H/O mitral valve repair History of colonoscopy History of mitral valve repair Status post Ammy procedure (10/21/19) Family History Family History Mother Diabetes mellitus Father Diabetes mellitus Social History Social History Household Members: Significant Other Housing: Apartment Are you a primary special needs child caregiver to a significant other at home: No Do you presently have visiting nurse or other home services: Yes ([facility]) Alcohol intake: current Alcohol intake frequency: a few times a month Alcohol type: beer Patient Tobacco Use Status: Never used Tobacco Smoked in Last 30 Days: No Second Hand Smoke Exposure: No Use of substances other than those prescribed or required for medical reasons: No Substance Use Type: Marijuana Advance Directives: Yes Advance Directives on File: Yes Advance Directives Date on File: 02/22/20 service: No Current occupational status: unemployed Physical Exam Vital Signs: Vital Signs: Last Vital Signs Temp 98.8 F 01/25/22 15:40 Pulse 99 01/25/22 15:40 Resp 20 01/25/22 15:40 BP 169/114 H 01/25/22 15:40 Pulse Ox 97 01/25/22 15:40 O2 Del Method 01/25/22 15:40 BMI result Body Mass Index 35.5 Appearance: Alert. Oriented X3. No acute distress. Anxious Eyes: Pupils equal, round and reactive to light. ENT: Pharynx moderate dry MM Neck: Normal inspection. Neck supple. CVS: tachycardic heart rate and rhythm. Pulses normal. Respiratory: No respiratory distress. Breath sounds normal. Abdomen: Soft and nontender. Skin: Skin warm and dry. Normal skin color. Normal skin turgor. Extremities: No lower extremity edema. Neuro: Oriented X 3. No motor deficit. No sensory deficit. Course Course Course Narrative: signed out to Dr. Brooks pending CT scan - will stop insulin drip and admit to medicine reports compliance but hemoglobin A1c is 14 MDM - Dizziness MDM Narrative Medical decision making narrative: 51 yo male with hx of anxiety, GERD, HTN, HLD, DM on insulin here with HTN and hyperglycemia reports compliance other than Saturday. Denies infectious symptoms. At this time labs, LR x 2L, IV insulin, EKG, IV labetalol. Unsure what precipitated this event unless he really isn't compliant given he did miss Saturday medications. Dispo per results and findings. Denies ETOH and drug use. Lab Data Result diagrams: 01/25/22 12:47 01/25/22 12:47 Labs: Lab Results 01/25/22 01/25/22 01/25/22 Range/Units 12:25 12:47 12:47 WBC 11.3 H (4.8-10.8) X10*3/uL RBC 5.69 (4.60-5.80) X10*6/uL Hgb 16.6 (14.0-18.0) g/dl Hct 50.1 (42.0-52.0) % MCV 88.0 (80.0-98.0) fL MCH 29.2 (27.0-33.0) pg MCHC 33.1 (31.0-36.0) g/dl RDW 13.9 (11.0-16.0) % Plt Count 232 (160-400) X10*3/uL MPV 13.0 H (9.4-12.4) fL Immature Gran % (Auto) 0.5 H (0.0-0.4) % Neut % (Auto) 73.8 H (45-73) % Lymph % (Auto) 19.0 L (20-40) % [place] % (Auto) 5.7 (2-11) % Eos % (Auto) 0.5 (0-4) % Baso % (Auto) 0.5 (0-2) % Lymph # (Auto) 2.2 (1.2-4.9) X10*3/uL [place] # (Auto) 0.6 (0.1-1.2) X10*3/uL Eos # (Auto) 0.1 (0.0-0.4) X10*3/uL Baso # (Auto) 0.1 (0.0-0.2) X10*3/uL Abs Immat Gran (auto) 0.06 H (0.00-0.03) X10*3/uL Absolute Neuts (auto) 8.4 H (2.0-8.3) x10*3/uL Absolute Nucleated RBC 0.000 (0.0-0.012) X10*3/uL Nucleated RBC % (auto) 0.0 (0.0-0.2) /100WBC VBG pH (7.32-7.43) VBG pCO2 mmHg VBG pO2 mmHg VBG HCO3 (22-26) mmol/L VBG O2 Saturation % VBG Base Excess mmol/L Sodium 122 L (135-145) mmol/L Potassium 4.7 D (3.3-5.1) mmol/L Chloride 83 L (96-108) mmol/L Carbon Dioxide 23 (22-29) mmol/L Anion Gap 22 H (12-20) BUN 12 (9-16) mg/dL Creatinine 1.98 H (0.5-1.4) mg/dL Estim Creat Clear Calc 49.9 Estimated GFR 36 POC Glucose > 600 H* (60-115) mg/dL Random Glucose 1024 H* (60-115) mg/dL Estimat Average Glucose Hgb A1c Fingerstick Hemoglobin A1c % % Lactic Acid (0.5-2.0) mmol/L Lactic Acid F/U @ 2Hr (0.5-2.0) mmol/L Calcium 8.6 (8.4-10.2) mg/dL Total Bilirubin 0.3 (0.0-1.0) mg/dL Direct Bilirubin < 0.2 (0.0-0.5) mg/dL AST 47 H D (5-37) U/L ALT 91 H (0-40) U/L Alkaline Phosphatase 64 D (39-117) U/L Troponin I High Sens (<3.5-35.0) ng/L Total Protein 7.6 (6.5-8.0) g/dL Albumin 3.8 (3.5-5.0) g/dL Lipase 45 (8-78) U/L Urine Color Urine Appearance Urine pH (5.0-9.0) Ur Specific [place] (1.005-1.025) Urine Protein (Neg-Trace) mg/dL Urine Glucose (UA) (Negative) mg/dL Urine Ketones (Negative) mg/dL Urine Blood (Negative) Urine Nitrite (Negative) Ur Leukocyte Esterase (Negative) Urine RBC (0-2) /HPF Urine WBC (0-5) /HPF Ur Squamous Epith Cells (0-2) /HPF Urine Bacteria (None Seen) Hyaline Casts (0-2) /LPF Urine Opiates Screen (Not Detect) Urine Fentanyl Screen (Not Detect) Ur Barbiturates Screen (Not Detect) Ur Phencyclidine Scrn (Not Detect) Ur Amphetamines Screen (Not Detect) U Benzodiazepines Scrn (Not Detect) Urine Cocaine Screen (Not Detect) U Marijuana (THC) Screen (Not Detect) Ethyl Alcohol < 10 mg/dL Acetone, Qual (Negative) COVID-19 (CLAIRE) (Negative) COVID-19 Clin Com 01/25/22 01/25/22 01/25/22 Range/Units 12:47 12:47 12:47 WBC (4.8-10.8) X10*3/uL RBC (4.60-5.80) X10*6/uL Hgb (14.0-18.0) g/dl Hct (42.0-52.0) % MCV (80.0-98.0) fL MCH (27.0-33.0) pg MCHC (31.0-36.0) g/dl RDW (11.0-16.0) % Plt Count (160-400) X10*3/uL MPV (9.4-12.4) fL Immature Gran % (Auto) (0.0-0.4) % Neut % (Auto) (45-73) % Lymph % (Auto) (20-40) % [place] % (Auto) (2-11) % Eos % (Auto) (0-4) % Baso % (Auto) (0-2) % Lymph # (Auto) (1.2-4.9) X10*3/uL [place] # (Auto) (0.1-1.2) X10*3/uL Eos # (Auto) (0.0-0.4) X10*3/uL Baso # (Auto) (0.0-0.2) X10*3/uL Abs Immat Gran (auto) (0.00-0.03) X10*3/uL Absolute Neuts (auto) (2.0-8.3) x10*3/uL Absolute Nucleated RBC (0.0-0.012) X10*3/uL Nucleated RBC % (auto) (0.0-0.2) /100WBC VBG pH (7.32-7.43) VBG pCO2 mmHg VBG pO2 mmHg VBG HCO3 (22-26) mmol/L VBG O2 Saturation % VBG Base Excess mmol/L Sodium (135-145) mmol/L Potassium (3.3-5.1) mmol/L Chloride (96-108) mmol/L Carbon Dioxide (22-29) mmol/L Anion Gap (12-20) BUN (9-16) mg/dL Creatinine (0.5-1.4) mg/dL Estim Creat Clear Calc Estimated GFR POC Glucose (60-115) mg/dL Random Glucose (60-115) mg/dL Estimat Average Glucose Hgb A1c Fingerstick Cancelled Hemoglobin A1c % % Lactic Acid (0.5-2.0) mmol/L Lactic Acid F/U @ 2Hr (0.5-2.0) mmol/L Calcium (8.4-10.2) mg/dL Total Bilirubin (0.0-1.0) mg/dL Direct Bilirubin (0.0-0.5) mg/dL AST (5-37) U/L ALT (0-40) U/L Alkaline Phosphatase (39-117) U/L Troponin I High Sens 7.2 (<3.5-35.0) ng/L Total Protein (6.5-8.0) g/dL Albumin (3.5-5.0) g/dL Lipase (8-78) U/L Urine Color Urine Appearance Urine pH (5.0-9.0) Ur Specific [place] (1.005-1.025) Urine Protein (Neg-Trace) mg/dL Urine Glucose (UA) (Negative) mg/dL Urine Ketones (Negative) mg/dL Urine Blood (Negative) Urine Nitrite (Negative) Ur Leukocyte Esterase (Negative) Urine RBC (0-2) /HPF Urine WBC (0-5) /HPF Ur Squamous Epith Cells (0-2) /HPF Urine Bacteria (None Seen) Hyaline Casts (0-2) /LPF Urine Opiates Screen (Not Detect) Urine Fentanyl Screen (Not Detect) Ur Barbiturates Screen (Not Detect) Ur Phencyclidine Scrn (Not Detect) Ur Amphetamines Screen (Not Detect) U Benzodiazepines Scrn (Not Detect) Urine Cocaine Screen (Not Detect) U Marijuana (THC) Screen (Not Detect) Ethyl Alcohol mg/dL Acetone, Qual Negative (Negative) COVID-19 (CLAIRE) (Negative) COVID-19 Clin Com 01/25/22 01/25/22 01/25/22 Range/Units 12:47 12:50 13:20 WBC (4.8-10.8) X10*3/uL RBC (4.60-5.80) X10*6/uL Hgb (14.0-18.0) g/dl Hct (42.0-52.0) % MCV (80.0-98.0) fL MCH (27.0-33.0) pg MCHC (31.0-36.0) g/dl RDW (11.0-16.0) % Plt Count (160-400) X10*3/uL MPV (9.4-12.4) fL Immature Gran % (Auto) (0.0-0.4) % Neut % (Auto) (45-73) % Lymph % (Auto) (20-40) % [place] % (Auto) (2-11) % Eos % (Auto) (0-4) % Baso % (Auto) (0-2) % Lymph # (Auto) (1.2-4.9) X10*3/uL [place] # (Auto) (0.1-1.2) X10*3/uL Eos # (Auto) (0.0-0.4) X10*3/uL Baso # (Auto) (0.0-0.2) X10*3/uL Abs Immat Gran (auto) (0.00-0.03) X10*3/uL Absolute Neuts (auto) (2.0-8.3) x10*3/uL Absolute Nucleated RBC (0.0-0.012) X10*3/uL Nucleated RBC % (auto) (0.0-0.2) /100WBC VBG pH (7.32-7.43) VBG pCO2 mmHg VBG pO2 mmHg VBG HCO3 (22-26) mmol/L VBG O2 Saturation % VBG Base Excess mmol/L Sodium (135-145) mmol/L Potassium (3.3-5.1) mmol/L Chloride (96-108) mmol/L Carbon Dioxide (22-29) mmol/L Anion Gap (12-20) BUN (9-16) mg/dL Creatinine (0.5-1.4) mg/dL Estim Creat Clear Calc Estimated GFR POC Glucose (60-115) mg/dL Random Glucose (60-115) mg/dL Estimat Average Glucose TNP Hgb A1c Fingerstick Hemoglobin A1c % > 14.0 % Lactic Acid 6.3 H* (0.5-2.0) mmol/L Lactic Acid F/U @ 2Hr (0.5-2.0) mmol/L Calcium (8.4-10.2) mg/dL Total Bilirubin (0.0-1.0) mg/dL Direct Bilirubin (0.0-0.5) mg/dL AST (5-37) U/L ALT (0-40) U/L Alkaline Phosphatase (39-117) U/L Troponin I High Sens (<3.5-35.0) ng/L Total Protein (6.5-8.0) g/dL Albumin (3.5-5.0) g/dL Lipase (8-78) U/L Urine Color Yellow Urine Appearance Clear Urine pH 5.5 (5.0-9.0) Ur Specific [place] >= 1.030 H (1.005-1.025) Urine Protein Negative (Neg-Trace) mg/dL Urine Glucose (UA) >=1000 H (Negative) mg/dL Urine Ketones Negative (Negative) mg/dL Urine Blood Negative (Negative) Urine Nitrite Negative (Negative) Ur Leukocyte Esterase Negative (Negative) Urine RBC 0-2 (0-2) /HPF Urine WBC 0-5 (0-5) /HPF Ur Squamous Epith Cells 0-2 (0-2) /HPF Urine Bacteria None Seen (None Seen) Hyaline Casts 0-2 (0-2) /LPF Urine Opiates Screen (Not Detect) Urine Fentanyl Screen (Not Detect) Ur Barbiturates Screen (Not Detect) Ur Phencyclidine Scrn (Not Detect) Ur Amphetamines Screen (Not Detect) U Benzodiazepines Scrn (Not Detect) Urine Cocaine Screen (Not Detect) U Marijuana (THC) Screen (Not Detect) Ethyl Alcohol mg/dL Acetone, Qual (Negative) COVID-19 (CLAIRE) (Negative) COVID-19 Clin Com 01/25/22 01/25/22 01/25/22 Range/Units 13:26 13:50 14:35 WBC (4.8-10.8) X10*3/uL RBC (4.60-5.80) X10*6/uL Hgb (14.0-18.0) g/dl Hct (42.0-52.0) % MCV (80.0-98.0) fL MCH (27.0-33.0) pg MCHC (31.0-36.0) g/dl RDW (11.0-16.0) % Plt Count (160-400) X10*3/uL MPV (9.4-12.4) fL Immature Gran % (Auto) (0.0-0.4) % Neut % (Auto) (45-73) % Lymph % (Auto) (20-40) % [place] % (Auto) (2-11) % Eos % (Auto) (0-4) % Baso % (Auto) (0-2) % Lymph # (Auto) (1.2-4.9) X10*3/uL [place] # (Auto) (0.1-1.2) X10*3/uL Eos # (Auto) (0.0-0.4) X10*3/uL Baso # (Auto) (0.0-0.2) X10*3/uL Abs Immat Gran (auto) (0.00-0.03) X10*3/uL Absolute Neuts (auto) (2.0-8.3) x10*3/uL Absolute Nucleated RBC (0.0-0.012) X10*3/uL Nucleated RBC % (auto) (0.0-0.2) /100WBC VBG pH 7.32 (7.32-7.43) VBG pCO2 42 mmHg VBG pO2 40 mmHg VBG HCO3 22 (22-26) mmol/L VBG O2 Saturation 51.0 % VBG Base Excess -3.8 mmol/L Sodium (135-145) mmol/L Potassium (3.3-5.1) mmol/L Chloride (96-108) mmol/L Carbon Dioxide (22-29) mmol/L Anion Gap (12-20) BUN (9-16) mg/dL Creatinine (0.5-1.4) mg/dL Estim Creat Clear Calc Estimated GFR POC Glucose 567 H* (60-115) mg/dL Random Glucose (60-115) mg/dL Estimat Average Glucose Hgb A1c Fingerstick Hemoglobin A1c % % Lactic Acid (0.5-2.0) mmol/L Lactic Acid F/U @ 2Hr (0.5-2.0) mmol/L Calcium (8.4-10.2) mg/dL Total Bilirubin (0.0-1.0) mg/dL Direct Bilirubin (0.0-0.5) mg/dL AST (5-37) U/L ALT (0-40) U/L Alkaline Phosphatase (39-117) U/L Troponin I High Sens (<3.5-35.0) ng/L Total Protein (6.5-8.0) g/dL Albumin (3.5-5.0) g/dL Lipase (8-78) U/L Urine Color Urine Appearance Urine pH (5.0-9.0) Ur Specific [place] (1.005-1.025) Urine Protein (Neg-Trace) mg/dL Urine Glucose (UA) (Negative) mg/dL Urine Ketones (Negative) mg/dL Urine Blood (Negative) Urine Nitrite (Negative) Ur Leukocyte Esterase (Negative) Urine RBC (0-2) /HPF Urine WBC (0-5) /HPF Ur Squamous Epith Cells (0-2) /HPF Urine Bacteria (None Seen) Hyaline Casts (0-2) /LPF Urine Opiates Screen Not Detected (Not Detect) Urine Fentanyl Screen Not Detected (Not Detect) Ur Barbiturates Screen Not Detected (Not Detect) Ur Phencyclidine Scrn Not Detected (Not Detect) Ur Amphetamines Screen Not Detected (Not Detect) U Benzodiazepines Scrn Not Detected (Not Detect) Urine Cocaine Screen Not Detected (Not Detect) U Marijuana (THC) Screen Not Detected (Not Detect) Ethyl Alcohol mg/dL Acetone, Qual (Negative) COVID-19 (CLAIRE) (Negative) COVID-19 Clin Com 01/25/22 01/25/22 01/25/22 Range/Units 15:27 15:45 15:45 WBC (4.8-10.8) X10*3/uL RBC (4.60-5.80) X10*6/uL Hgb (14.0-18.0) g/dl Hct (42.0-52.0) % MCV (80.0-98.0) fL MCH (27.0-33.0) pg MCHC (31.0-36.0) g/dl RDW (11.0-16.0) % Plt Count (160-400) X10*3/uL MPV (9.4-12.4) fL Immature Gran % (Auto) (0.0-0.4) % Neut % (Auto) (45-73) % Lymph % (Auto) (20-40) % [place] % (Auto) (2-11) % Eos % (Auto) (0-4) % Baso % (Auto) (0-2) % Lymph # (Auto) (1.2-4.9) X10*3/uL [place] # (Auto) (0.1-1.2) X10*3/uL Eos # (Auto) (0.0-0.4) X10*3/uL Baso # (Auto) (0.0-0.2) X10*3/uL Abs Immat Gran (auto) (0.00-0.03) X10*3/uL Absolute Neuts (auto) (2.0-8.3) x10*3/uL Absolute Nucleated RBC (0.0-0.012) X10*3/uL Nucleated RBC % (auto) (0.0-0.2) /100WBC VBG pH (7.32-7.43) VBG pCO2 mmHg VBG pO2 mmHg VBG HCO3 (22-26) mmol/L VBG O2 Saturation % VBG Base Excess mmol/L Sodium (135-145) mmol/L Potassium (3.3-5.1) mmol/L Chloride (96-108) mmol/L Carbon Dioxide (22-29) mmol/L Anion Gap (12-20) BUN (9-16) mg/dL Creatinine (0.5-1.4) mg/dL Estim Creat Clear Calc Estimated GFR POC Glucose 498 H* (60-115) mg/dL Random Glucose (60-115) mg/dL Estimat Average Glucose Hgb A1c Fingerstick Hemoglobin A1c % % Lactic Acid (0.5-2.0) mmol/L Lactic Acid F/U @ 2Hr 3.2 H* (0.5-2.0) mmol/L Calcium (8.4-10.2) mg/dL Total Bilirubin (0.0-1.0) mg/dL Direct Bilirubin (0.0-0.5) mg/dL AST (5-37) U/L ALT (0-40) U/L Alkaline Phosphatase (39-117) U/L Troponin I High Sens (<3.5-35.0) ng/L Total Protein (6.5-8.0) g/dL Albumin (3.5-5.0) g/dL Lipase (8-78) U/L Urine Color Urine Appearance Urine pH (5.0-9.0) Ur Specific [place] (1.005-1.025) Urine Protein (Neg-Trace) mg/dL Urine Glucose (UA) (Negative) mg/dL Urine Ketones (Negative) mg/dL Urine Blood (Negative) Urine Nitrite (Negative) Ur Leukocyte Esterase (Negative) Urine RBC (0-2) /HPF Urine WBC (0-5) /HPF Ur Squamous Epith Cells (0-2) /HPF Urine Bacteria (None Seen) Hyaline Casts (0-2) /LPF Urine Opiates Screen (Not Detect) Urine Fentanyl Screen (Not Detect) Ur Barbiturates Screen (Not Detect) Ur Phencyclidine Scrn (Not Detect) Ur Amphetamines Screen (Not Detect) U Benzodiazepines Scrn (Not Detect) Urine Cocaine Screen (Not Detect) U Marijuana (THC) Screen (Not Detect) Ethyl Alcohol mg/dL Acetone, Qual (Negative) COVID-19 (CLAIRE) Negative (Negative) COVID-19 Clin Com See Note ECG Data Attestation: I personally reviewed and interpreted this ECG as follows: ECG interpretation date: 01/25/22 ECG interpretation time: 13:29 Interpretation: Rate: 105 Rhythm: sinus tachycardia [place]: normal Normal P waves. Normal BHAVIN. Normal QRS complex. Poor R wave progression ST T wave : normal noSTE qTC: normal prior studies: no acute ischemia The study has been interpreted contemporaneously by me. . Critical Care Time Critical Care Time Critical Care Time: Yes Total Critical Care Time: 45 Attestation: insulin drip, IV labetalol, repeat labs, admission I attest to this time spent taking care of the patient Discharge Plan Discharge Clinical Impression: Acute hyperglycemia, Hypertension, uncontrolled Patient Disposition: Admitted As Inpatient
[2022-01-25 13:08] LABS: Appearance Urine Clear; Color Urine Yellow; Glucose Urine UA >=1000 mg/dL (Negative); Leukocyte Esterase Urine Negative (Negative); Nitrite Urine Negative (Negative); PH 5.5 (5.0-9.0); Specific Gravity - Urine >= 1.030 (1.005-1.025); UMIC TRIGGER UACC YES; Urine Blood Negative (Negative); Urine Ketones Negative (Negative); Urine Protein Negative (Neg-Trace)
[2022-01-25 13:10] LABS: Bacteria Urine None Seen (None Seen); Hyaline Casts Urine 0-2 /LPF (0-2); RBC Urine 0-2 /HPF (0-2); Squamous Epithelial Cell Urine 0-2 /HPF (0-2); WBC Urine 0-5 /HPF (0-5)
[2022-01-25 13:13] LABS: Acetone, serum QL Negative (Negative)
--- NOTE | 2022-01-25 13:17 | PC.NURSE ---
pt complains of blurry vision, N/V, abd pain 6/10. symptoms started today. pt reports polydipsia and polyuria. POC >600. Gave him regular insulin 10U IV. BP 191/137 Labetalol IV admin. IV in place on left AC. LR running. pt
[2022-01-25 13:23] LABS: Troponin-I High Sensitivity 7.2 ng/L (<3.5-35.0)
[2022-01-25 13:34] LABS: Alanine Aminotransferase 91 U/L (0-40); Albumin Level 3.8 g/dL (3.5-5.0); Alkaline Phosphatase 64 U/L (39-117); Anion Gap 22 (12-20); Aspartate Amino Transferase 47 U/L (5-37); Bilirubin Direct < 0.2 mg/dL (0.0-0.5); Bilirubin Total 0.3 mg/dL (0.0-1.0); Blood Urea Nitrogen 12 mg/dL (9-16); Calcium 8.6 mg/dL (8.4-10.2); Carbon Dioxide 23 mmol/L (22-29); Chloride 83 mmol/L (96-108); Creatinine Clr Calc Pharmacy 49.9; Estimated Glomerular Filt Rate 36; Ethanol < 10 mg/dL; Glucose Random 1024 mg/dL (60-115); Lipase 45 U/L (8-78); Potassium 4.7 mmol/L (3.3-5.1); Sodium 122 mmol/L (135-145); Total Protein 7.6 g/dL (6.5-8.0)
[2022-01-25 13:35] LABS: VBG Base Excess -3.8 mmol/L; VBG HCO3 22 mmol/L (22-26); VBG pCO2 42 mmHg; VBG pH 7.32 (7.32-7.43); VBG pO2 40 mmHg
[2022-01-25 13:40] LABS: Venous Blood Gas Refer to POC result
[2022-01-25] MEDS: Insulin Regular/NS 100 UNIT/100 ML PLAST..BAG 10 UNIT IVCONT (13:41)
[2022-01-25 13:46] LABS: Lactic Acid 6.3 mmol/L (0.5-2.0)
[2022-01-25 14:11] LABS: Amphetamine Screen Urine Not Detected (Not Detect); Barbiturates, Urine Not Detected (Not Detect); Benzodiazepines Screen Urine Not Detected (Not Detect); Cannabinoid Screen Urine Not Detected (Not Detect); Cocaine Screen Urine Not Detected (Not Detect); Fentanyl, urine Not Detected (Not Detect); Opiate Screen Urine Not Detected (Not Detect); Phencyclidine Screen Urine Not Detected (Not Detect)
[2022-01-25 14:40] LABS: Glucose, Whole Blood 567 mg/dL (60-115)
[2022-01-25] MEDS: ondansetron HCL 4 MG/2 ML VIAL IVPUSH (14:41)
[2022-01-25 15:25] LABS: Reflex Lactate? Lactic Acid Added
[2022-01-25 15:31] LABS: Glucose, Whole Blood 498 mg/dL (60-115)
[2022-01-25 16:04] LABS: COVID-19 Test Negative (Negative)
[2022-01-25 16:15] LABS: ~Lactic Acid-LAB USE ONLY 3.2 mmol/L (0.5-2.0)
[2022-01-25 16:16] LABS: Hemoglobin A1c % > 14.0 %
[2022-01-25] MEDS: Acetaminophen 325 MG TABLET 650 MG PO (16:27)
[2022-01-25 16:29] LABS: Glucose, Whole Blood 327 mg/dL (60-115)
--- NOTE | 2022-01-25 17:35 | PHA.MEDREC ---
MED REC COMPLETE, PT HAS NOT BEEN TAKING METOPROLOL FOR SEVERAL MONTHS BUT IS STILL SUPPOSED TO BE ON THIS Pharmacy Consult ? Medication Reconciliation Pharmacy has completed the medication reconciliation.
[2022-01-25 17:49] LABS: Reflex Lactate? 2 Y
[2022-01-25 18:17] LABS: Glucose, Whole Blood 280 mg/dL (60-115)
[2022-01-25 19:23] LABS: Glucose, Whole Blood 306 mg/dL (60-115)
[2022-01-25 19:42] LABS: Anion Gap 16 (12-20); Blood Urea Nitrogen 9 mg/dL (9-16); Calcium 8.5 mg/dL (8.4-10.2); Carbon Dioxide 26 mmol/L (22-29); Chloride 97 mmol/L (96-108); Creatinine Clr Calc Pharmacy 83.7; Estimated Glomerular Filt Rate > 60; Glucose Random 292 mg/dL (60-115); Potassium 3.3 mmol/L (3.3-5.1); Sodium 136 mmol/L (135-145)
[2022-01-25 20:24] LABS: Glucose, Whole Blood 290 mg/dL (60-115)
--- NOTE | 2022-01-25 20:38 | PM.IMHP ---
History of Present Illness Date of Service: 01/25/22 Chief Complaint: Dizziness This is a 51-year-old male with pertinent history of uncontrolled insulin-dependent diabetes mellitus, uncontrolled blood pressure due to medication noncompliance, generalized anxiety disorder, mixed hyperlipidemia who presents to the emergency department for evaluation of dizziness and blurring of vision. Patient states it started on the day of presentation. Patient does endorse polyuria, polydipsia. He initially stated that he takes his medications every day but later admitted that he might have missed a few doses. Also is complaining of headache and abdominal discomfort, constant, nonradiating and without any relieving factors. He denies fever, chills, nausea, vomiting. Endorses poor p.o. intake due to generalized feeling of uneasiness. He tried to check his blood glucose at home but it was off the charts. Patient states that he has difficulty driving due to his dizziness and overall feels weak. He denied chest discomfort, palpitations, shortness of breath, changes in bowel habits In the emergency department, his blood glucose was elevated >1000 with elevated blood pressure and systolic in the 190s. Review of Systems Constitutional: Constitutional: Reports fatigue, Reports headache(s) and Reports malaise Eyes: Eyes: Reports blurry vision ENT: Reports headache(s) Neurologic: Reports headache(s) Endocrine: Endocrine: Reports fatigue [facility] Medical History Anxiety Constipation Diabetes Diverticulosis GERD (gastroesophageal reflux disease) Hematochezia History of diverticulitis Hyperlipidemia Hypertension Lower GI bleed Mitral valve disease Renal insufficiency Right ankle pain Sleep apnea Family History Mother Diabetes mellitus Father Diabetes mellitus Surgical History H/O mitral valve repair History of colonoscopy History of mitral valve repair Status post Ammy procedure (10/21/19) Social History Household Members: Significant Other Housing: Apartment Are you a primary critical care clinical nurse specialist to a significant other at home: No Do you presently have visiting nurse or other home services: Yes ([facility]) Alcohol intake: current Alcohol intake frequency: a few times a month Alcohol type: beer Patient Tobacco Use Status: Never used Tobacco Smoked in Last 30 Days: No Second Hand Smoke Exposure: No Use of substances other than those prescribed or required for medical reasons: No Substance Use Type: Marijuana Advance Directives: Yes Advance Directives on File: Yes Advance Directives Date on File: 02/22/20 service: No Current occupational status: unemployed Meds Allergies Allergy/AdvReac Type Severity Reaction Status Date / Time morphine [MORPHINE] Allergy Unknown HIVES, rash Verified 09/05/21 15:32 Active Medications: Current Medications Acetaminophen (Acetaminophen 325 Mg Tablet) 650 mg PO Q6H PRN PRN Reason: Pain, Mild (Pain Scale 1-3) Amlodipine Besylate (Amlodipine Besylate 10 Mg Tablet) 10 mg PO DAILY [facility]; Protocol Aspirin (Aspirin Enteric Coated 81 Mg Tablet.) 81 mg PO DAILY [facility] Atorvastatin Calcium (Atorvastatin Calcium 20 Mg Tablet) 20 mg PO DAILY [facility] Cyclobenzaprine HCl (Cyclobenzaprine Hcl 10 Mg Tablet) 20 mg PO BEDTIME [facility] Dextrose (Dextrose 50 % 25 Gm/50 Ml Syringe) 25 gm IVPUSH Q15M PRN; Protocol PRN Reason: per Hypoglycemia Standing Ord. Empagliflozin (Empagliflozin 10 Mg Tablet) 10 mg PO DAILY [facility] Enoxaparin Sodium (Enoxaparin Sodium 40 Mg/0.4 Ml Syringe) 40 mg SUBCUT Q24H [facility] Gabapentin (Gabapentin 300 Mg Capsule) 300 mg PO BID [facility] Glucose (Glucose Gel 15 Gm Gel..Gram.) 15 gm PO Q15M PRN; Protocol PRN Reason: per Hypoglycemia Standing Ord. Insulin Human Regular (Myxredlin) 100 unit in 100 mls @ 10 mls/hr IVCONT .Q10H [facility]; Protocol Last Titration: 01/25/22 16:28 Dose: 0 unit/hr, 0 mls/hr Sodium Chloride (Ns) 250 mls @ 999 mls/hr IV .Q16M ONE Stop: 01/25/22 20:51 Insulin Glargine (Insulin Glargine,Hum.Rec.Anlog 100 Unit/Ml 10 Ml Vial) 20 unit SUBCUT BEDTIME [facility] Melatonin (Melatonin 3 Mg Tablet) 6 mg PO BEDTIME PRN PRN Reason: Insomnia Non-Formulary Medication (Benazepril) 1 tab PO DAILY [facility] Omeprazole (Omeprazole 20 Mg Capsule.) 20 mg PO DAILY [facility] Ondansetron HCl (Ondansetron Hcl 4 Mg/2 Ml Vial) 4 mg IVPUSH Q8H PRN PRN Reason: Nausea and Vomiting Pharmacy Consult (Consult Rx Perform Med Rec) 1 each MISCELLANE ONCE PRN PRN Reason: Consult order Sertraline HCl (Sertraline Hcl 50 Mg Tablet) 50 mg PO DAILY [facility] Sodium Chloride (0.9 % Sodium Chloride Flush 3 Ml Syringe) 3 ml IVFLUSH QSHIFT [facility] Home Medications Medication Instructions Recorded Confirmed Last Taken Type aspirin 81 mg tablet,delayed 81 mg PO DAILY 12/28/19 01/25/22 01/25/22 History release (Adult Low Dose Aspirin) atorvastatin 20 mg tablet 20 mg PO DAILY 12/28/19 01/25/22 01/25/22 History gabapentin 300 mg capsule 300 mg PO BID 01/07/20 01/25/22 01/25/22 History sertraline 50 mg tablet 50 mg PO DAILY 02/16/20 01/25/22 01/25/22 History metoprolol tartrate 50 mg tablet 1 tab PO TID 12/13/20 01/25/22 01/19/21 History insulin glargine 100 unit/mL (3 15 unit subcut BEDTIME 01/19/21 01/25/22 01/24/22 History mL) subcutaneous pen (Lantus Solostar U-100 Insulin) omeprazole 20 mg capsule,delayed 1 cap PO DAILY 01/19/21 01/25/22 01/19/21 History release amlodipine 10 mg tablet 1 tab PO DAILY 01/25/22 01/25/22 01/25/22 History benazepril 10 mg tablet 1 tab PO DAILY 01/25/22 01/25/22 01/25/22 History cyclobenzaprine 10 mg tablet 20 mg PO BEDTIME 01/25/22 01/25/22 01/24/22 History empagliflozin 10 mg tablet 10 mg PO DAILY 01/25/22 01/25/22 01/25/22 History (Jardiance) sitagliptin 50 mg-metformin 1,000 1 tab PO BID 01/25/22 01/25/22 01/25/22 History mg tablet (Janumet) Physical Exam Vital Signs and Narrative: Vital Signs: Last Vital Signs Temp 98.8 F 01/25/22 19:16 Pulse 94 01/25/22 19:16 Resp 18 01/25/22 19:16 BP 159/107 H 01/25/22 19:16 Pulse Ox 96 01/25/22 19:16 O2 Del Method 01/25/22 19:16 BMI result Body Mass Index 35.5 Middle-aged male lying in bed in no distress Neck supple, no JVD Regular rate and rhythm, S1-S2 heard Regular breath sounds bilaterally, no wheezing or crackles appreciated Abdomen soft nontender, no guarding, no rigidity Patient is awake, alert and oriented to self, place, time and person ; no focal motor deficit, no nystagmus Psych: Normal mood No pedal edema Results Labs CBC and Chem 7: 01/25/22 12:47 01/25/22 19:08 Labs: Laboratory Results - last 24 hr 01/25/22 01/25/22 01/25/22 12:25 12:47 12:47 MCV 88.0 MCH 29.2 MCHC 33.1 RDW 13.9 Plt Count 232 MPV 13.0 H Immature Gran % (Auto) 0.5 H Neut % (Auto) 73.8 H Lymph % (Auto) 19.0 L [place] % (Auto) 5.7 Eos % (Auto) 0.5 Baso % (Auto) 0.5 Lymph # (Auto) 2.2 [place] # (Auto) 0.6 Eos # (Auto) 0.1 Baso # (Auto) 0.1 Abs Immat Gran (auto) 0.06 H Absolute Neuts (auto) 8.4 H Absolute Nucleated RBC 0.000 Nucleated RBC % (auto) 0.0 VBG pH VBG pCO2 VBG pO2 VBG HCO3 VBG O2 Saturation VBG Base Excess Anion Gap 22 H Estim Creat Clear Calc 49.9 Estimated GFR 36 POC Glucose > 600 H* Random Glucose 1024 H* Estimat Average Glucose Hgb A1c Fingerstick Hemoglobin A1c % Lactic Acid Lactic Acid F/U @ 2Hr Lactic Acid F/U @ 4Hr Calcium 8.6 Total Bilirubin 0.3 Direct Bilirubin < 0.2 AST 47 H D ALT 91 H Alkaline Phosphatase 64 D Troponin I High Sens Total Protein 7.6 Albumin 3.8 Lipase 45 Urine Color Urine Appearance Urine pH Ur Specific [place] Urine Protein Urine Glucose (UA) Urine Ketones Urine Blood Urine Nitrite Ur Leukocyte Esterase Urine RBC Urine WBC Ur Squamous Epith Cells Urine Bacteria Hyaline Casts Urine Opiates Screen Urine Fentanyl Screen Ur Barbiturates Screen Ur Phencyclidine Scrn Ur Amphetamines Screen U Benzodiazepines Scrn Urine Cocaine Screen U Marijuana (THC) Screen Ethyl Alcohol < 10 Acetone, Qual COVID-19 (CLAIRE) COVID-19 [employer] 01/25/22 01/25/22 01/25/22 12:47 12:47 12:47 MCV MCH MCHC RDW Plt Count MPV Immature Gran % (Auto) Neut % (Auto) Lymph % (Auto) [place] % (Auto) Eos % (Auto) Baso % (Auto) Lymph # (Auto) [place] # (Auto) Eos # (Auto) Baso # (Auto) Abs Immat Gran (auto) Absolute Neuts (auto) Absolute Nucleated RBC Nucleated RBC % (auto) VBG pH VBG pCO2 VBG pO2 VBG HCO3 VBG O2 Saturation VBG Base Excess Anion Gap Estim Creat Clear Calc Estimated GFR POC Glucose Random Glucose Estimat Average Glucose Hgb A1c Fingerstick Cancelled Hemoglobin A1c % Lactic Acid Lactic Acid F/U @ 2Hr Lactic Acid F/U @ 4Hr Calcium Total Bilirubin Direct Bilirubin AST ALT Alkaline Phosphatase Troponin I High Sens 7.2 Total Protein Albumin Lipase Urine Color Urine Appearance Urine pH Ur Specific [place] Urine Protein Urine Glucose (UA) Urine Ketones Urine Blood Urine Nitrite Ur Leukocyte Esterase Urine RBC Urine WBC Ur Squamous Epith Cells Urine Bacteria Hyaline Casts Urine Opiates Screen Urine Fentanyl Screen Ur Barbiturates Screen Ur Phencyclidine Scrn Ur Amphetamines Screen U Benzodiazepines Scrn Urine Cocaine Screen U Marijuana (THC) Screen Ethyl Alcohol Acetone, Qual Negative COVID-19 (CLAIRE) COVID-19 [employer] 01/25/22 01/25/22 01/25/22 12:47 12:50 13:20 MCV MCH MCHC RDW Plt Count MPV Immature Gran % (Auto) Neut % (Auto) Lymph % (Auto) [place] % (Auto) Eos % (Auto) Baso % (Auto) Lymph # (Auto) [place] # (Auto) Eos # (Auto) Baso # (Auto) Abs Immat Gran (auto) Absolute Neuts (auto) Absolute Nucleated RBC Nucleated RBC % (auto) VBG pH VBG pCO2 VBG pO2 VBG HCO3 VBG O2 Saturation VBG Base Excess Anion Gap Estim Creat Clear Calc Estimated GFR POC Glucose Random Glucose Estimat Average Glucose TNP Hgb A1c Fingerstick Hemoglobin A1c % > 14.0 Lactic Acid 6.3 H* Lactic Acid F/U @ 2Hr Lactic Acid F/U @ 4Hr Calcium Total Bilirubin Direct Bilirubin AST ALT Alkaline Phosphatase Troponin I High Sens Total Protein Albumin Lipase Urine Color Yellow Urine Appearance Clear Urine pH 5.5 Ur Specific [place] >= 1.030 H Urine Protein Negative Urine Glucose (UA) >=1000 H Urine Ketones Negative Urine Blood Negative Urine Nitrite Negative Ur Leukocyte Esterase Negative Urine RBC 0-2 Urine WBC 0-5 Ur Squamous Epith Cells 0-2 Urine Bacteria None Seen Hyaline Casts 0-2 Urine Opiates Screen Urine Fentanyl Screen Ur Barbiturates Screen Ur Phencyclidine Scrn Ur Amphetamines Screen U Benzodiazepines Scrn Urine Cocaine Screen U Marijuana (THC) Screen Ethyl Alcohol Acetone, Qual COVID-19 ([facility]RE) [employer] 01/25/22 01/25/22 01/25/22 13:26 13:50 14:35 MCV MCH MCHC RDW Plt Count MPV Immature Gran % (Auto) Neut % (Auto) Lymph % (Auto) [place] % (Auto) Eos % (Auto) Baso % (Auto) Lymph # (Auto) [place] # (Auto) Eos # (Auto) Baso # (Auto) Abs Immat Gran (auto) Absolute Neuts (auto) Absolute Nucleated RBC Nucleated RBC % (auto) VBG pH 7.32 VBG pCO2 42 VBG pO2 40 VBG HCO3 22 VBG O2 Saturation 51.0 VBG Base Excess -3.8 Anion Gap Estim Creat Clear Calc Estimated GFR POC Glucose 567 H* Random Glucose Estimat Average Glucose Hgb A1c Fingerstick Hemoglobin A1c % Lactic Acid Lactic Acid F/U @ 2Hr Lactic Acid F/U @ 4Hr Calcium Total Bilirubin Direct Bilirubin AST ALT Alkaline Phosphatase Troponin I High Sens Total Protein Albumin Lipase Urine Color Urine Appearance Urine pH Ur Specific [place] Urine Protein Urine Glucose (UA) Urine Ketones Urine Blood Urine Nitrite Ur Leukocyte Esterase Urine RBC Urine WBC Ur Squamous Epith Cells Urine Bacteria Hyaline Casts Urine Opiates Screen Not Detected Urine Fentanyl Screen Not Detected Ur Barbiturates Screen Not Detected Ur Phencyclidine Scrn Not Detected Ur Amphetamines Screen Not Detected U Benzodiazepines Scrn Not Detected Urine Cocaine Screen Not Detected U Marijuana (THC) Screen Not Detected Ethyl Alcohol Acetone, Qual COVID-19 ([facility]) [employer] 01/25/22 01/25/2201/25/22 15:27 15:45 15:45 MCV MCH MCHC RDW Plt Count MPV Immature Gran % (Auto) Neut % (Auto) Lymph % (Auto) [place] % (Auto) Eos % (Auto) Baso % (Auto) Lymph # (Auto) [place] # (Auto) Eos # (Auto) Baso # (Auto) Abs Immat Gran (auto) Absolute Neuts (auto) Absolute Nucleated RBC Nucleated RBC % (auto) VBG pH VBG pCO2 VBG pO2 VBG HCO3 VBG O2 Saturation VBG Base Excess Anion Gap Estim Creat Clear Calc Estimated GFR POC Glucose 498 H* Random Glucose Estimat Average Glucose Hgb A1c Fingerstick Hemoglobin A1c % Lactic Acid Lactic Acid F/U @ 2Hr 3.2 H* Lactic Acid F/U @ 4Hr Calcium Total Bilirubin Direct Bilirubin AST ALT Alkaline Phosphatase Troponin I High Sens Total Protein Albumin Lipase Urine Color Urine Appearance Urine pH Ur Specific [place] Urine Protein Urine Glucose (UA) Urine Ketones Urine Blood Urine Nitrite Ur Leukocyte Esterase Urine RBC Urine WBC Ur Squamous Epith Cells Urine Bacteria Hyaline Casts Urine Opiates Screen Urine Fentanyl Screen Ur Barbiturates Screen Ur Phencyclidine Scrn Ur Amphetamines Screen U Benzodiazepines Scrn Urine Cocaine Screen U Marijuana (THC) Screen Ethyl Alcohol Acetone, Qual COVID-19 (CLAIRE) Negative COVID-19 Clin Com See Note 01/25/22 01/25/22 01/25/22 16:26 18:04 18:06 MCV MCH MCHC RDW Plt Count MPV Immature Gran % (Auto) Neut % (Auto) Lymph % (Auto) [place] % (Auto) Eos % (Auto) Baso % (Auto) Lymph # (Auto) [place] # (Auto) Eos # (Auto) Baso # (Auto) Abs Immat Gran (auto) Absolute Neuts (auto) Absolute Nucleated RBC Nucleated RBC % (auto) VBG pH VBG pCO2 VBG pO2 VBG HCO3 VBG O2 Saturation VBG Base Excess Anion Gap Estim Creat Clear Calc Estimated GFR POC Glucose 327 H 280 H Random Glucose Estimat Average Glucose Hgb A1c Fingerstick Hemoglobin A1c % Lactic Acid Lactic Acid F/U @ 2Hr Lactic Acid F/U @ 4Hr 2.0 Calcium Total Bilirubin Direct Bilirubin AST ALT Alkaline Phosphatase Troponin I High Sens Total Protein Albumin Lipase Urine Color Urine Appearance Urine pH Ur Specific [place] Urine Protein Urine Glucose (UA) Urine Ketones Urine Blood Urine Nitrite Ur Leukocyte Esterase Urine RBC Urine WBC Ur Squamous Epith Cells Urine Bacteria Hyaline Casts Urine Opiates Screen Urine Fentanyl Screen Ur Barbiturates Screen Ur Phencyclidine Scrn Ur Amphetamines Screen U Benzodiazepines Scrn Urine Cocaine Screen U Marijuana (THC) Screen Ethyl Alcohol Acetone, Qual COVID-19 (CLAIRE) COVID-19 Clin Com 01/25/22 01/25/22 01/25/22 19:08 19:19 20:10 MCV MCH MCHC RDW Plt Count MPV Immature Gran % (Auto) Neut % (Auto) Lymph % (Auto) [place] % (Auto) Eos % (Auto) Baso % (Auto) Lymph # (Auto) [place] # (Auto) Eos # (Auto) Baso # (Auto) Abs Immat Gran (auto) Absolute Neuts (auto) Absolute Nucleated RBC Nucleated RBC % (auto) VBG pH VBG pCO2 VBG pO2 VBG HCO3 VBG O2 Saturation VBG Base Excess Anion Gap 16 Estim Creat Clear Calc 83.7 Estimated GFR > 60 POC Glucose 306 H 290 H Random Glucose 292 H D Estimat Average Glucose Hgb A1c Fingerstick Hemoglobin A1c % Lactic Acid Lactic Acid F/U @ 2Hr Lactic Acid F/U @ 4Hr Calcium 8.5 Total Bilirubin Direct Bilirubin AST ALT Alkaline Phosphatase Troponin I High Sens Total Protein Albumin Lipase Urine Color Urine Appearance Urine pH Ur Specific [place] Urine Protein Urine Glucose (UA) Urine Ketones Urine Blood Urine Nitrite Ur Leukocyte Esterase Urine RBC Urine WBC Ur Squamous Epith Cells Urine Bacteria Hyaline Casts Urine Opiates Screen Urine Fentanyl Screen Ur Barbiturates Screen Ur Phencyclidine Scrn Ur Amphetamines Screen U Benzodiazepines Scrn Urine Cocaine Screen U Marijuana (THC) Screen Ethyl Alcohol Acetone, Qual COVID-19 (CLAIRE) COVID-19 Clin Com Imaging Radiologist's Impressions: Impressions Abdomen/Pelvis CT 01/25/22 15:58 IMPRESSION: No acute finding here. Nonobstructing renal calculus once again seen on the right. No hydronephrosis. The bowel pattern is nonobstructing. There is no free fluid. Other findings as noted above. Fleischner guidelines were followed. Assessment and Plan (1) Hyperosmolar hyperglycemic state (HHS): Status: Acute (2) BRENDON (acute kidney injury): Status: Acute (3) Lactic acidosis: Status: Acute (4) Hyperlipidemia: Status: Acute (5) Elevated blood pressure reading: Status: Acute (6) Anxiety: Status: Acute (7) GERD (gastroesophageal reflux disease): Status: Acute (8) Obesity: Status: Acute Plan This is a 51-year-old male with pertinent history of uncontrolled insulin-dependent diabetes mellitus, uncontrolled blood pressure due to medication noncompliance, generalized anxiety disorder, mixed hyperlipidemia who presents to the emergency department for evaluation of dizziness and blurring of vision. #. Hyperosmolar hyperglycemic nonketotic state -due to uncontrolled insulin-dependent diabetes mellitus in the setting of medication noncompliance. Patient received IV insulin and IV fluid resuscitation in the ER. Will initiate sliding scale insulin and increase home basal insulin. Counseled extensively regarding the importance of medication compliance. Optimize antihyperglycemics at discharge. Patient's symptoms can be explained by HHS, monitor for improvement in symptoms with improvement in plasma osmolality and blood glucose #. Hypertensive emergency -due to medication noncompliance. Administering IV labetalol in the ER. Resume home medications. Elevated blood pressure could also cause patient's symptoms including blurring of vision #. Blurring of vision -although it could be neurologic complication due to HHS or hypertensive emergency, obtaining MRI to rule out CVA as pt does have risk factors due to uncontrolled diabetes, uncontrolled blood pressure and hyperlipidemia #. Acute kidney injury stage I, prerenal -resolved with IV fluid resuscitation #. Lactic acidosis, type a -trended down with IV crystalloids #. Obesity II -needs weight loss and optimization of risk factors #. Diabetic neuropathy -on gabapentin #. Generalized anxiety disorder -on sertraline DVT prophylaxis: Lovenox 40 mg daily Full code Diabetic diet Will admit as inpatient for management of HHS and hypertensive emergency. Quality Stroke Does the patient have a stroke diagnosis?: No VTE Prior VTE?: No VTE Risk Level:: Medical - moderate - high VTE Device Contraindication: Treatment Not Indicated VTE Drug Contraindication: N/A - Med Ordered
--- OUTSIDE RECORDS SUMMARY | 2022-01-25 20:47 | XMS_ITS ---
:1970 Author Care Team Providers Name Role Phone KEISHA OLMEDO MD Primary Care Provider [phone] Allergies Code Code System Name Reaction Severity [...] XR, Lumbosacral Spine, 2 or 3 View [facility] [address], [place] [address] (Work Place) 07/11/2018 XR, Elbow, 3 or More View [facility] [address], [place] [address] (Work Place) Notes: Cardiac Micro valve implant Results Lab Results Date Name Specimen Result Interpretation Description Value Range Status Address ? 10/06/2020 Culture, Abscess ? Specimen swab chest ? Fin john [facility] Superficial Description lt areola Reference Wound region Laboratori es: [address], [place] ? ? Abscess ? Special none ? Final [facility] e Requests Referenc e Laboratori es: [address], [place] ? ? Abscess ? gram Stain ? ? Final [facility] Reference Laboratori es: [address], [place] ? ? Abscess ABNORM Culture ? ? Final [facility] e [place] Reference Laboratori es: [address], [place] ? ? Abscess ? Report Status final ? Final [facility] 10/09/2020 Refere nce Laboratori es: [address], [place] ? ? Abscess ? Organism ? ? Final [facility] te Reference Laboratori es: [address], [place] ? ? Abscess ? Method method min. ? Final [facility] inhib. Reference conc. Laboratori es: (mcg/mL) [address], [place] ? ? Abscess Suscep Ciprofloxacin ciprofloxac ? Fin john [facility] tible in Reference susceptible Labor atories: [address], [place] ? ? Abscess Suscep Clindamycin clindamycin ? Final [facility] tible susceptible Refer ence Laboratori es: [address], [place] ? ? Abscess Resist Erythromycin erythromyci ? Amber l [facility] ant n resistant Refer ence Laboratori es: [address], [place] ? ? Abscess Suscep Inducible inducible ? Final [facility] tible Clindamycin clindamyci R eference negative Laborato alex: [address], [place] ? ? Abscess Suscep Levofloxacin levofloxaci ? [facility] tible n Reference susceptible Labor atories: [address] [...] ? Abscess Suscep Rifampin ? ? [facility] Labor[facility]: [address], [place] ? ? Abscess Suscep Tetracycline tetracyclin ? Amber l [facility] tible e Reference susceptible Labor atories: [address], [place] ? ? Abscess Suscep Trimeth/sulfa trimeth/sul ? Fin [facility] tible methox famethox Referenc e susceptible Labor atories: [address], [place] ? ? Abscess Suscep Vancomycin vancomycin ? Final [facility] tible susceptible Refer ence Laboratori es: [address], [place] 11/14/2018 Culture, Wound ? Specimen swab R ? Final [facility] Superficial Description axilla Reference Wound Laboratori es: [address], [place] ? ? Wound ? Special none ? Final [facility] Requests Referenc e Laboratori es: [address], [place] ? ? Wound ? gram Stain ? ? Final [facility] ate Reference Laboratori es: [address], [place] ? ? Wound ABNORM Culture ? ? Final [facility] [place] Reference Laboratori es: [address], [place] ? ? Wound ? Report Status final ? Final [facility] 11/17/2018 Refere nce Laboratori es: [address], [place] Past Encounters 10/06/2020 Abscess; Tinea Corporis Sarah Evette Tejeda PA: [address] [facility] [place] [id number], Ph. Social History Tobacco Smoking Status Never [...]
[2022-01-25] MEDS: Enoxaparin Sodium 40 MG/0.4 ML SYRINGE SUBCUT (21:08)
[2022-01-25] MEDS: Cyclobenzaprine HCl 10 MG TABLET 20 MG PO (21:08)
[2022-01-25] MEDS: Gabapentin 300 MG CAPSULE PO (21:08)
[2022-01-25] MEDS: amLODIPine Besylate 10 MG TABLET PO (21:09)
[2022-01-25] MEDS: Labetalol HCL 100 MG/20 ML VIAL IVPUSH (21:09)
[2022-01-25] MEDS: Insulin Glargine,Hum.rec.anlog 100 UNIT/ML 10 ML VIAL 20 UNIT SUBCUT (21:09)
--- OUTSIDE RECORDS SUMMARY | 2022-01-25 21:14 | XMS_ITS ---
:1970 Author Care Team Providers Name Role Phone KEISHA OLMEDO MD Primary Care Provider [phone] Allergies Code Code System Name Reaction Severity [...] XR, Lumbosacral Spine, 2 or 3 View [facility] [address], [place] [address] (Work Place) 07/11/2018 XR, Elbow, 3 or More View [facility] [address], [place] [address] (Work Place) Notes: Cardiac Micro valve implant Results Lab Results Date Name Specimen Result Interpretation Description Value Range Status Address ? 10/06/2020 Culture, Abscess ? Specimen swab chest ? Fin ojhn [facility] Superficial Description lt areola Reference Wound region Laboratori es: [address], [place] ? ? Abscess ? Special none ? Final [facility] e Requests Referenc e Laboratori es: [address], [place] ? ? Abscess ? gram Stain ? ? Final [employer] Reference Laboratori es: [address], [place] ? ? Abscess ABNORM Culture ? ? Final [facility] e [place] Reference Laboratori es: [address], [place] ? ? Abscess ? Report Status final ? Final [facility] 10/09/2020 Refere nce Laboratori es: [address], [place] ? ? Abscess ? Organism ? ? Final [facility] te Reference Laboratori es: [address], [place] ? ? Abscess ? Method method min. ? Final [facility] inhib. Reference conc. Laboratori es: (mcg/mL) [address], [place] ? ? Abscess Suscep Ciprofloxacin ciprofloxac ? Fin john [facility] tible in Reference susceptible Labor atories: [address], [place] ? ? Abscess Suscep Clindamycin clindamycin ? Final [facility] tible susceptible Refer ence Laboratori es: [address], [place] ? ? Abscess Resist Erythromycin erythromyci ? Amber l [facility] ant n resistant Refer ence Laboratori es: [address], [place] ? ? Abscess Suscep Inducible inducible ? Final [facility] tible Clindamycin clindamyci R eference negative Laborato alex: [address], [place] ? ? Abscess Suscep Levofloxacin levofloxaci ? [place] [facility] [place] Reference susceptible Labor atories: [address] [...] ? Abscess Suscep Rifampin ? ? [facility] Labor[facility]: [address], [place] ? ? Abscess Suscep Tetracycline tetracyclin ? Amber l [facility] tible e Reference susceptible Labor atories: [address], [place] ? ? Abscess Suscep Trimeth/sulfa trimeth/sul ? Fin [place] [facility] tible methox famethox Referenc e susceptible Labor atories: [address], [place] ? ? Abscess Suscep Vancomycin vancomycin ? Final [facility] tible susceptible Refer ence Laboratori es: [address], [place] 11/14/2018 Culture, Wound ? Specimen swab R ? Final [facility] Superficial Description axilla Reference Wound Laboratori es: [address], [place] ? ? Wound ? Special none ? Final [facility] Requests Referenc e Laboratori es: [address], [place] ? ? Wound ? gram Stain ? ? Final [facility] ate Reference Laboratori es: [address], [place] ? ? Wound ABNORM Culture ? ? Final [facility] [place] Reference Laboratori es: [address], [place] ? ? Wound ? Report Status final ? Final [facility] 11/17/2018 Refere nce Laboratori es: [address], [place] Past Encounters 10/06/2020 Abscess; Tinea Corporis Sarah Evette Tejeda PA: [address] [place] [address], Ph. Social History Tobacco Smoking Status Never [...]
[2022-01-25] MEDS: 0.9 % Sodium Chloride 250 ML 999 ML IV (21:15)
[2022-01-25 21:44] LABS: Glucose, Whole Blood 295 mg/dL (60-115)
[2022-01-25 21:50] LABS: Cholesterol 212 mg/dL; HDL Cholesterol 27 mg/dL; Triglycerides 511 mg/dL
--- NOTE | 2022-01-25 22:48 | PC.NURSE ---
pt brought from ed and put in room 9 on overflow, patient a&o upon arrival, pt last poc was 295, and pt is hypertensive at 191/126, Dr. Rebolledo was notified no new orders given at this time, pt has call lance within reach, will continue to monitor
[2022-01-25 23:35] LABS: Glucose, Whole Blood 357 mg/dL (60-115)
[2022-01-26] MEDS: Insulin Regular, Human 100 UNIT/ML 3 ML VIAL IVPUSH (00:59)
[2022-01-26] MEDS: Acetaminophen 325 MG TABLET 650 MG PO ×2 (01:07→08:19)
[2022-01-26] MEDS: 0.9 % Sodium Chloride Flush 3 ML SYRINGE IVFLUSH ×4 (01:10→21:27)
[2022-01-26 04:28] VITALS: BP 166/88; PULSE 70; RESP 18; O2SAT 97
[2022-01-26 04:29] LABS: Glucose, Whole Blood 322 mg/dL (60-115)
[2022-01-26] MEDS: Omeprazole 20 MG CAPSULE.DR PO (05:36)
[2022-01-26 06:31] LABS: Glucose, Whole Blood 353 mg/dL (60-115)
[2022-01-26 06:33] LABS: MANUAL DIFF FLAG NO
[2022-01-26 06:41] LABS: Basophils Absolute Auto 0.1 X10*3/uL (0.0-0.2); Basophils Percent Auto 0.5 % (0-2); Eosinophils Absolute Auto 0.2 X10*3/uL (0.0-0.4); Eosinophils Percent Auto 1.3 % (0-4); Hematocrit 48.3 % (42.0-52.0); Hemoglobin 16.5 g/dl (14.0-18.0); Imm Gran Abs Auto 0.07 X10*3/uL (0.00-0.03); Imm Gran Pct Auto 0.5 % (0.0-0.4); Lymphocytes Percent Auto 23.7 % (20-40); Mean Corpuscular HGB Conc 34.2 g/dl (31.0-36.0); Mean Corpuscular Hemoglobin 28.8 pg (27.0-33.0); Mean Corpuscular Volume 84.4 fL (80.0-98.0); Mean Platelet Volume 12.6 fL (9.4-12.4); Monocytes Absolute Auto 0.6 X10*3/uL (0.1-1.2); Monocytes Percent Auto 4.7 % (2-11); Neutrophils Absolute Auto 8.9 x10*3/uL (2.0-8.3); Neutrophils Percent Auto 69.3 % (45-73); Platelet Count 240 X10*3/uL (160-400); Red Blood Count 5.72 X10*6/uL (4.60-5.80); Red Cell Distribution Width 13.4 % (11.0-16.0); White Blood Count 12.8 X10*3/uL (4.8-10.8)
--- NOTE | 2022-01-26 06:56 | PC.NURSE ---
PT c/o headache APAP given. PT resting in bed, VS except BP and POCs elevated. BP at 23:53 165/98 down from 191/126, MD notified no new orders. BP at 0428 was 166/88, MD notified no new orders. POC at 2332 [id number], PT asymptomatic 5 units IV push insulin ordered and given, BS at 0630 353, PT asymptomatic, 10 units IV push insulin ordered, currently cannot be pulled from Pyxis due to order not being there yet, cannot be over ride. PT resting in bed. Call lance with in reach.
[2022-01-26 07:11] LABS: Anion Gap 17 (12-20); Blood Urea Nitrogen 8 mg/dL (9-16); Calcium 8.2 mg/dL (8.4-10.2); Carbon Dioxide 23 mmol/L (22-29); Chloride 99 mmol/L (96-108); Creatinine Clr Calc Pharmacy 85.9; Estimated Glomerular Filt Rate > 60; Glucose Random 341 mg/dL (60-115); Potassium 3.3 mmol/L (3.3-5.1); Sodium 136 mmol/L (135-145)
[2022-01-26 07:51] LABS: Glucose, Whole Blood 331 mg/dL (60-115)
[2022-01-26] MEDS: Sertraline HCL 50 MG TABLET PO (08:15)
[2022-01-26] MEDS: amLODIPine Besylate 10 MG TABLET PO (08:15)
[2022-01-26] MEDS: Atorvastatin Calcium 20 MG TABLET PO (08:15)
[2022-01-26] MEDS: Gabapentin 300 MG CAPSULE PO ×2 (08:15→21:19)
[2022-01-26] MEDS: lisinopriL 10 MG TABLET PO (08:16)
[2022-01-26] MEDS: Aspirin Enteric Coated 81 MG TABLET.DR PO (08:16)
[2022-01-26] MEDS: Empagliflozin 10 MG TABLET PO (08:16)
[2022-01-26 08:20] VITALS: BP 168/86; PULSE 97; RESP 18; TEMP 36.4; O2SAT 94
--- NOTE | 2022-01-26 08:30 | PC.NURSE ---
provider contacted about which insulin to administer. also notified about need for premedication for mri
[2022-01-26] MEDS: Insulin Lispro 100 UNIT/ML 3 ML VIAL SUBCUT ×7 (08:43→21:21)
[2022-01-26 09:57] LABS: Glucose, Whole Blood 438 mg/dL (60-115)
--- NOTE | 2022-01-26 09:57 | MHC.CM.PN ---
met withpt who explins thatn he is indepedent drove himself here his car in parking lot does not need servceis dc plan home no services
[2022-01-26] MEDS: Midazolam HCl/PF 2 MG/2 ML VIAL IVPUSH (10:08)
--- NOTE | 2022-01-26 10:11 | PC.NURSE ---
pt to mri
--- NOTE | 2022-01-26 10:26 | HO.PM.IMPN ---
Subjective Subjective Date of Service: 01/26/22 Interval History: seen and examined d/w him re: blurred vision; reports this week was very noticable but thinks maybe has been happening before as he has not seen eye doctor in years denies focal deficits; BRIGGS better Review of Systems negative except HPI Physical Exam Vital Signs: Vital Signs: Last Vital Signs Temp 97.6 F 01/26/22 08:20 Pulse 97 01/26/22 08:20 Resp 18 01/26/22 08:20 BP 168/86 H 01/26/22 08:20 Pulse Ox 94 01/26/22 08:20 O2 Del Method 01/26/22 08:20 BMI result Body Mass Index 35.5 Const: Other: General - no acute distress, appears comfortable Cardiovascular - regular rate and rhythm, S1-S2 Lungs - normal respiratory effort, clear to auscultation bilaterally, no wheezing Abdomen - soft, nontender, no rebound or guarding Extremities - no edema bilaterally Neuro - awake and alert, no focal deficits Objective Data Active Medications Acetaminophen (Acetaminophen 325 Mg Tablet) 650 mg PO Q6H PRN PRN Reason: Pain, Mild (Pain Scale 1-3) Last Admin: 01/26/22 08:19 Dose: 650 mg Documented By: BARON Amlodipine Besylate (Amlodipine Besylate 10 Mg Tablet) 10 mg PO DAILY [facility]; Protocol Last Admin: 01/26/22 08:15 Dose: 10 mg Documented By: BARON Aspirin (Aspirin Enteric Coated 81 Mg Tablet.) 81 mg PO DAILY [facility] Last Admin: 01/26/22 08:16 Dose: 81 mg Documented By: BARON Atorvastatin Calcium (Atorvastatin Calcium 20 Mg Tablet) 20 mg PO DAILY [facility] Last Admin: 01/26/22 08:15 Dose: 20 mg Documented By: BARON Cyclobenzaprine HCl (Cyclobenzaprine Hcl 10 Mg Tablet) 20 mg PO BEDTIME [facility] Last Admin: 01/25/22 21:08 Dose: 20 mg Documented By: JASSON Dextrose (Dextrose 50 % 25 Gm/50 Ml Syringe) 25 gm IVPUSH Q15M PRN; Protocol PRN Reason: per Hypoglycemia Standing Ord. Empagliflozin (Empagliflozin 10 Mg Tablet) 10 mg PO DAILY [facility] Last Admin: 01/26/22 08:16 Dose: 10 mg Documented By: BARON Enoxaparin Sodium (Enoxaparin Sodium 40 Mg/0.4 Ml Syringe) 40 mg SUBCUT Q24H [facility] Last Admin: 01/25/22 21:08 Dose: 40 mg Documented By: JASSON Gabapentin (Gabapentin 300 Mg Capsule) 300 mg PO BID [facility] Last Admin: 01/26/22 08:15 Dose: 300 mg Documented By: BARON Glucose (Glucose Gel 15 Gm Gel..Gram.) 15 gm PO Q15M PRN; Protocol PRN Reason: per Hypoglycemia Standing Ord. Glucose (Glucose Gel 15 Gm Gel..Gram.) 15 gm PO Q15M PRN; Protocol PRN Reason: per Hypoglycemia Standing Ord. Insulin Glargine (Insulin Glargine,Hum.Rec.Anlog 100 Unit/Ml 10 Ml Vial) 20 unit SUBCUT BEDTIME [facility] Last Admin: 01/25/22 21:09 Dose: 20 unit Documented By: JASSON Insulin Human Lispro (Insulin Lispro 100 Unit/Ml 3 Ml Vial) 0 unit SUBCUT QIDACHS [facility]; Protocol Lisinopril (Lisinopril 10 Mg Tablet) 10 mg PO DAILY [facility] Last Admin: 01/26/22 08:16 Dose: 10 mg Documented By: BARON Melatonin (Melatonin 3 Mg Tablet) 6 mg PO BEDTIME PRN PRN Reason: Insomnia Omeprazole (Omeprazole 20 Mg Capsule.Dr) 20 mg PO DAILY@0630 [facility] Last Admin: 01/26/22 05:36 Dose: 20 mg Documented By: CHRISTIAN Ondansetron HCl (Ondansetron Hcl 4 Mg/2 Ml Vial) 4 mg IVPUSH Q8H PRN PRN Reason: Nausea and Vomiting Pharmacy Consult (Consult Rx Perform Med Rec) 1 each MISCELLANE ONCE PRN PRN Reason: Consult order Sertraline HCl (Sertraline Hcl 50 Mg Tablet) 50 mg PO DAILY [facility] Last Admin: 01/26/22 08:15 Dose: 50 mg Documented By: BARON Sodium Chloride (0.9 % Sodium Chloride Flush 3 Ml Syringe) 3 ml IVFLUSH QSHIFT [facility] Last Admin: 01/26/22 08:16 Dose: 3 ml Documented By: BARON Labs CBC & Chem 7: 01/26/22 06:02 01/26/22 06:02 Labs: Laboratory Results - last 24 hr 01/25/22 01/25/22 01/25/22 12:25 12:47 12:47 MCV 88.0 MCH 29.2 MCHC 33.1 RDW 13.9 Plt Count 232 MPV 13.0 H Immature Gran % (Auto) 0.5 H Neut % (Auto) 73.8 H Lymph % (Auto) 19.0 L [place] % (Auto) 5.7 Eos % (Auto) 0.5 Baso % (Auto) 0.5 Lymph # (Auto) 2.2 [place] # (Auto) 0.6 Eos # (Auto) 0.1 Baso # (Auto) 0.1 Abs Immat Gran (auto) 0.06 H Absolute Neuts (auto) 8.4 H Absolute Nucleated RBC 0.000 Nucleated RBC % (auto) 0.0 VBG pH VBG pCO2 VBG pO2 VBG HCO3 VBG O2 Saturation VBG Base Excess Anion Gap 22 H Estim Creat Clear Calc 49.9 Estimated GFR 36 POC Glucose > 600 H* Random Glucose 1024 H* Estimat Average Glucose Hgb A1c Fingerstick Hemoglobin A1c % Lactic Acid Lactic Acid F/U @ 2Hr Lactic Acid F/U @ 4Hr Calcium 8.6 Total Bilirubin 0.3 Direct Bilirubin < 0.2 AST 47 H D ALT 91 H Alkaline Phosphatase 64 D Troponin I High Sens Total Protein 7.6 Albumin 3.8 Triglycerides 511 Cholesterol 212 LDL Cholesterol, Calc TNP HDL Cholesterol 27 Lipase 45 Urine Color Urine Appearance Urine pH Ur Specific [place] Urine Protein Urine Glucose (UA) Urine Ketones Urine Blood Urine Nitrite Ur Leukocyte Esterase Urine RBC Urine WBC Ur Squamous Epith Cells Urine Bacteria Hyaline Casts Urine Opiates Screen Urine Fentanyl Screen Ur Barbiturates Screen Ur Phencyclidine Scrn Ur Amphetamines Screen U Benzodiazepines Scrn Urine Cocaine Screen U Marijuana (THC) Screen Ethyl Alcohol < 10 Acetone, Qual COVID-19 (CLAIRE) COVID-19 Clin Com 01/25/22 01/25/22 01/25/22 12:47 12:47 12:47 MCV MCH MCHC RDW Plt Count MPV Immature Gran % (Auto) Neut % (Auto) Lymph % (Auto) [place] % (Auto) Eos % (Auto) Baso % (Auto) Lymph # (Auto) [place] # (Auto) Eos # (Auto) Baso # (Auto) Abs Immat Gran (auto) Absolute Neuts (auto) Absolute Nucleated RBC Nucleated RBC % (auto) VBG pH VBG pCO2 VBG pO2 VBG HCO3 VBG O2 Saturation VBG Base Excess Anion Gap Estim Creat Clear Calc Estimated GFR POC Glucose Random Glucose Estimat Average Glucose Hgb A1c Fingerstick Cancelled Hemoglobin A1c % Lactic Acid Lactic Acid F/U @ 2Hr Lactic Acid F/U @ 4Hr Calcium Total Bilirubin Direct Bilirubin AST ALT Alkaline Phosphatase Troponin I High Sens 7.2 Total Protein Albumin Triglycerides Cholesterol LDL Cholesterol, Calc HDL Cholesterol Lipase Urine Color Urine Appearance Urine pH Ur Specific [place] Urine Protein Urine Glucose (UA) Urine Ketones Urine Blood Urine Nitrite Ur Leukocyte Esterase Urine RBC Urine WBC Ur Squamous Epith Cells Urine Bacteria Hyaline Casts Urine Opiates Screen Urine Fentanyl Screen Ur Barbiturates Screen Ur Phencyclidine Scrn Ur Amphetamines Screen U Benzodiazepines Scrn Urine Cocaine Screen U Marijuana (THC) Screen Ethyl Alcohol Acetone, Qual Negative COVID-19 (CL[facility]RE) COVID-19 Clin Com 01/25/22 01/25/22 01/25/22 12:47 12:50 13:20 MCV MCH MCHC RDW Plt Count MPV Immature Gran % (Auto) Neut % (Auto) Lymph % (Auto) [place] % (Auto) Eos % (Auto) Baso % (Auto) Lymph # (Auto) [place] # (Auto) Eos # (Auto) Baso # (Auto) Abs Immat Gran (auto) Absolute Neuts (auto) Absolute Nucleated RBC Nucleated RBC % (auto) VBG pH VBG pCO2 VBG pO2 VBG HCO3 VBG O2 Saturation VBG Base Excess Anion Gap Estim Creat Clear Calc Estimated GFR POC Glucose Random Glucose Estimat Average Glucose TNP Hgb A1c Fingerstick Hemoglobin A1c % > 14.0 Lactic Acid 6.3 H* Lactic Acid F/U @ 2Hr Lactic Acid F/U @ 4Hr Calcium Total Bilirubin Direct Bilirubin AST ALT Alkaline Phosphatase Troponin I High Sens Total Protein Albumin Triglycerides Cholesterol LDL Cholesterol, Calc HDL Cholesterol Lipase Urine Color Yellow Urine Appearance Clear Urine pH 5.5 Ur Specific [place] >= 1.030 H Urine Protein Negative Urine Glucose (UA) >=1000 H Urine Ketones Negative Urine Blood Negative Urine Nitrite Negative Ur Leukocyte Esterase Negative Urine RBC 0-2 Urine WBC 0-5 Ur Squamous Epith Cells 0-2 Urine Bacteria None Seen Hyaline Casts 0-2 Urine Opiates Screen Urine Fentanyl Screen Ur Barbiturates Screen Ur Phencyclidine Scrn Ur Amphetamines Screen U Benzodiazepines Scrn Urine Cocaine Screen U Marijuana (THC) Screen Ethyl Alcohol Acetone, Qual COVID-19 (CLAIRE) COVID-19 [employer] 01/25/22 01/25/22 01/25/22 13:26 13:50 14:35 MCV MCH MCHC RDW Plt Count MPV Immature Gran % (Auto) Neut % (Auto) Lymph % (Auto) [place] % (Auto) Eos % (Auto) Baso % (Auto) Lymph # (Auto) [place] # (Auto) Eos # (Auto) Baso # (Auto) Abs Immat Gran (auto) Absolute Neuts (auto) Absolute Nucleated RBC Nucleated RBC % (auto) VBG pH 7.32 VBG pCO2 42 VBG pO2 40 VBG HCO3 22 VBG O2 Saturation 51.0 VBG Base Excess -3.8 Anion Gap Estim Creat Clear Calc Estimated GFR POC Glucose 567 H* Random Glucose Estimat Average Glucose Hgb A1c Fingerstick Hemoglobin A1c % Lactic Acid Lactic Acid F/U @ 2Hr Lactic Acid F/U @ 4Hr Calcium Total Bilirubin Direct Bilirubin AST ALT Alkaline Phosphatase Troponin I High Sens Total Protein Albumin Triglycerides Cholesterol LDL Cholesterol, Calc HDL Cholesterol Lipase Urine Color Urine Appearance Urine pH Ur Specific [place] Urine Protein Urine Glucose (UA) Urine Ketones Urine Blood Urine Nitrite Ur Leukocyte Esterase Urine RBC Urine WBC Ur Squamous Epith Cells Urine Bacteria Hyaline Casts Urine Opiates Screen Not Detected Urine Fentanyl Screen Not Detected Ur Barbiturates Screen Not Detected Ur Phencyclidine Scrn Not Detected Ur Amphetamines Screen Not Detected U Benzodiazepines Scrn Not Detected Urine Cocaine Screen Not Detected U Marijuana (THC) Screen Not Detected Ethyl Alcohol Acetone, Qual COVID-19 (CL[facility]RE) COVID-19 [employer] 01/25/22 01/25/22 01/25/22 15:27 15:45 15:45 MCV MCH MCHC RDW Plt Count MPV Immature Gran % (Auto) Neut % (Auto) Lymph % (Auto) [place] % (Auto) Eos % (Auto) Baso % (Auto) Lymph # (Auto) [place] # (Auto) Eos # (Auto) Baso # (Auto) Abs Immat Gran (auto) Absolute Neuts (auto) Absolute Nucleated RBC Nucleated RBC % (auto) VBG pH VBG pCO2 VBG pO2 VBG HCO3 VBG O2 Saturation VBG Base Excess Anion Gap Estim Creat Clear Calc Estimated GFR POC Glucose 498 H* Random Glucose Estimat Average Glucose Hgb A1c Fingerstick Hemoglobin A1c % Lactic Acid Lactic Acid F/U @ 2Hr 3.2 H* Lactic Acid F/U @ 4Hr Calcium Total Bilirubin Direct Bilirubin AST ALT Alkaline Phosphatase Troponin I High Sens Total Protein Albumin Triglycerides Cholesterol LDL Cholesterol, Calc HDL Cholesterol Lipase Urine Color Urine Appearance Urine pH Ur Specific [place] Urine Protein Urine Glucose (UA) Urine Ketones Urine Blood Urine Nitrite Ur Leukocyte Esterase Urine RBC Urine WBC Ur Squamous Epith Cells Urine Bacteria Hyaline Casts Urine Opiates Screen Urine Fentanyl Screen Ur Barbiturates Screen Ur Phencyclidine Scrn Ur Amphetamines Screen U Benzodiazepines Scrn Urine Cocaine Screen U Marijuana (THC) Screen Ethyl Alcohol Acetone, Qual COVID-19 (CLAIRE) Negative [employer] See Note 01/25/22 01/25/22 01/25/22 16:26 18:04 18:06 MCV MCH MCHC RDW Plt Count MPV Immature Gran % (Auto) Neut % (Auto) Lymph % (Auto) [place] % (Auto) Eos % (Auto) Baso % (Auto) Lymph # (Auto) [place] # (Auto) Eos # (Auto) Baso # (Auto) Abs Immat Gran (auto) Absolute Neuts (auto) Absolute Nucleated RBC Nucleated RBC % (auto) VBG pH VBG pCO2 VBG pO2 VBG HCO3 VBG O2 Saturation VBG Base Excess Anion Gap Estim Creat Clear Calc Estimated GFR POC Glucose 327 H 280 H Random Glucose Estimat Average Glucose Hgb A1c Fingerstick Hemoglobin A1c % Lactic Acid Lactic Acid F/U @ 2Hr Lactic Acid F/U @ 4Hr 2.0 Calcium Total Bilirubin Direct Bilirubin AST ALT Alkaline Phosphatase Troponin I High Sens Total Protein Albumin Triglycerides Cholesterol LDL Cholesterol, Calc HDL Cholesterol Lipase Urine Color Urine Appearance Urine pH Ur Specific [place] Urine Protein Urine Glucose (UA) Urine Ketones Urine Blood Urine Nitrite Ur Leukocyte Esterase Urine RBC Urine WBC Ur Squamous Epith Cells Urine Bacteria Hyaline Casts Urine Opiates Screen Urine Fentanyl Screen Ur Barbiturates Screen Ur Phencyclidine Scrn Ur Amphetamines Screen U Benzodiazepines Scrn Urine Cocaine Screen U Marijuana (THC) Screen Ethyl Alcohol Acetone, Qual COVID-19 (CL[facility]RE) COVID-19 [employer] 01/25/22 01/25/22 01/25/22 19:08 19:19 20:10 MCV MCH MCHC RDW Plt Count MPV Immature Gran % (Auto) Neut % (Auto) Lymph % (Auto) [place] % (Auto) Eos % (Auto) Baso % (Auto) Lymph # (Auto) [place] # (Auto) Eos # (Auto) Baso # (Auto) Abs Immat Gran (auto) Absolute Neuts (auto) Absolute Nucleated RBC Nucleated RBC % (auto) VBG pH VBG pCO2 VBG pO2 VBG HCO3 VBG O2 Saturation VBG Base Excess Anion Gap 16 Estim Creat Clear Calc 83.7 Estimated GFR > 60 POC Glucose 306 H 290 H Random Glucose 292 H D Estimat Average Glucose Hgb A1c Fingerstick Hemoglobin A1c % Lactic Acid Lactic Acid F/U @ 2Hr Lactic Acid F/U @ 4Hr Calcium 8.5 Total Bilirubin Direct Bilirubin AST ALT Alkaline Phosphatase Troponin I High Sens Total Protein Albumin Triglycerides Cholesterol LDL Cholesterol, Calc HDL Cholesterol Lipase Urine Color Urine Appearance Urine pH Ur Specific [place] Urine Protein Urine Glucose (UA) Urine Ketones Urine Blood Urine Nitrite Ur Leukocyte Esterase Urine RBC Urine WBC Ur Squamous Epith Cells Urine Bacteria Hyaline Casts Urine Opiates Screen Urine Fentanyl Screen Ur Barbiturates Screen Ur Phencyclidine Scrn Ur Amphetamines Screen U Benzodiazepines Scrn Urine Cocaine Screen U Marijuana (THC) Screen Ethyl Alcohol Acetone, Qual COVID-19 (CLAIRE) COVID-19 Clin Com 01/25/22 01/25/22 01/26/22 21:41 23:32 04:25 MCV MCH MCHC RDW Plt Count MPV Immature Gran % (Auto) Neut % (Auto) Lymph % (Auto) [place] % (Auto) Eos % (Auto) Baso % (Auto) Lymph # (Auto) [place] # (Auto) Eos # (Auto) Baso # (Auto) Abs Immat Gran (auto) Absolute Neuts (auto) Absolute Nucleated RBC Nucleated RBC % (auto) VBG pH VBG pCO2 VBG pO2 VBG HCO3 VBG O2 Saturation VBG Base Excess Anion Gap Estim Creat Clear Calc Estimated GFR POC Glucose 295 H 357 H* 322 H Random Glucose Estimat Average Glucose Hgb A1c Fingerstick Hemoglobin A1c % Lactic Acid Lactic Acid F/U @ 2Hr Lactic Acid F/U @ 4Hr Calcium Total Bilirubin Direct Bilirubin AST ALT Alkaline Phosphatase Troponin I High Sens Total Protein Albumin Triglycerides Cholesterol LDL Cholesterol, Calc HDL Cholesterol Lipase Urine Color Urine Appearance Urine pH Ur Specific [place] Urine Protein Urine Glucose (UA) Urine Ketones Urine Blood Urine Nitrite Ur Leukocyte Esterase Urine RBC Urine WBC Ur Squamous Epith Cells Urine Bacteria Hyaline Casts Urine Opiates Screen Urine Fentanyl Screen Ur Barbiturates Screen Ur Phencyclidine Scrn Ur Amphetamines Screen U Benzodiazepines Scrn Urine Cocaine Screen U Marijuana (THC) Screen Ethyl Alcohol Acetone, Qual COVID-19 (CL[facility]RE) COVID-19 Clin Com 01/26/22 01/26/22 01/26/22 06:02 06:02 06:27 MCV 84.4 MCH 28.8 MCHC 34.2 RDW 13.4 Plt Count 240 MPV 12.6 H Immature Gran % (Auto) 0.5 H Neut % (Auto) 69.3 Lymph % (Auto) 23.7 [place] % (Auto) 4.7 Eos % (Auto) 1.3 Baso % (Auto) 0.5 Lymph # (Auto) 3.0 [place] # (Auto) 0.6 Eos # (Auto) 0.2 Baso # (Auto) 0.1 Abs Immat Gran (auto) 0.07 H Absolute Neuts (auto) 8.9 H Absolute Nucleated RBC 0.000 Nucleated RBC % (auto) 0.0 VBG pH VBG pCO2 VBG pO2 VBG HCO3 VBG O2 Saturation VBG Base Excess Anion Gap 17 Estim Creat Clear Calc 85.9 Estimated GFR > 60 POC Glucose 353 H* Random Glucose 341 H Estimat Average Glucose Hgb A1c Fingerstick Hemoglobin A1c % Lactic Acid Lactic Acid F/U @ 2Hr Lactic Acid F/U @ 4Hr Calcium 8.2 L Total Bilirubin Direct Bilirubin AST ALT Alkaline Phosphatase Troponin I High Sens Total Protein Albumin Triglycerides Cholesterol LDL Cholesterol, Calc HDL Cholesterol Lipase Urine Color Urine Appearance Urine pH Ur Specific [place] Urine Protein Urine Glucose (UA) Urine Ketones Urine Blood Urine Nitrite Ur Leukocyte Esterase Urine RBC Urine WBC Ur Squamous Epith Cells Urine Bacteria Hyaline Casts Urine Opiates Screen Urine Fentanyl Screen Ur Barbiturates Screen Ur Phencyclidine Scrn Ur Amphetamines Screen U Benzodiazepines Scrn Urine Cocaine Screen U Marijuana (THC) Screen Ethyl Alcohol Acetone, Qual COVID-19 (CL[facility]RE) COVID-19 Clin Com 01/26/22 01/26/22 07:47 09:53 MCV MCH MCHC RDW Plt Count MPV Immature Gran % (Auto) Neut % (Auto) Lymph % (Auto) [place] % (Auto) Eos % (Auto) Baso % (Auto) Lymph # (Auto) [place] # (Auto) Eos # (Auto) Baso # (Auto) Abs Immat Gran (auto) Absolute Neuts (auto) Absolute Nucleated RBC Nucleated RBC % (auto) VBG pH VBG pCO2 VBG pO2 VBG HCO3 VBG O2 Saturation VBG Base Excess Anion Gap Estim Creat Clear Calc Estimated GFR POC Glucose 331 H 438 H* Random Glucose Estimat Average Glucose Hgb A1c Fingerstick Hemoglobin A1c % Lactic Acid Lactic Acid F/U @ 2Hr Lactic Acid F/U @ 4Hr Calcium Total Bilirubin Direct Bilirubin AST ALT Alkaline Phosphatase Troponin I High Sens Total Protein Albumin Triglycerides Cholesterol LDL Cholesterol, Calc HDL Cholesterol Lipase Urine Color Urine Appearance Urine pH Ur Specific [place] Urine Protein Urine Glucose (UA) Urine Ketones Urine Blood Urine Nitrite Ur Leukocyte Esterase Urine RBC Urine WBC Ur Squamous Epith Cells Urine Bacteria Hyaline Casts Urine Opiates Screen Urine Fentanyl Screen Ur Barbiturates Screen Ur Phencyclidine Scrn Ur Amphetamines Screen U Benzodiazepines Scrn Urine Cocaine Screen U Marijuana (THC) Screen Ethyl Alcohol Acetone, Qual COVID-19 (CL[facility]RE) COVID-19 Clin Com Assessment and Plan (1) Hyperosmolar hyperglycemic state (HHS): Status: Acute Plan This is a 51-year-old male with pertinent history of uncontrolled insulin-dependent diabetes mellitus, uncontrolled blood pressure due to medication noncompliance, generalized anxiety disorder, mixed hyperlipidemia who presents to the emergency department for evaluation of dizziness and blurring of vision. #.? Hyperosmolar hyperglycemic nonketotic state s/p IVF and IV insulin on lantus 20 and silding scale (on latnus 15 + orals at home); continue sliding scale but add 5 units scheduled on top A1C > 14 DM education provided, would benefit from further education via PCP #.? Hypertensive emergency has symptoms of blurry vision BP improved -- continue baseline meds and titrate #.? Blurring of vision MR to rule out intracranial issues but suspected he'll need outpatient f/u with ophthalmology #.? Acute kidney injury stage I, prerenal resovled #.? Lactic acidosis, type a resolved #.? Obesity II -needs weight loss and optimization of risk factors #.? Diabetic neuropathy -on gabapentin #.? Generalized anxiety disorder -on sertraline Full Code DVT pptx -- Lovenox requies ongoing hospitalization due to persistent hyperglycemia. short acting inuslin has been initiated and he will require further titration; anticipate an additional 24 to 48 hours to accomplish this Quality Stroke Does the patient have a stroke diagnosis?: No VTE Prior VTE?: No VTE Risk Level:: Medical - moderate - high VTE Device Contraindication: Treatment Not Indicated VTE Drug Contraindication: N/A - Med Ordered
[2022-01-26 12:21] LABS: Glucose, Whole Blood 310 mg/dL (60-115)
--- NOTE | 2022-01-26 12:25 | PC.NURSE ---
patient a&ox3, ambulated with stby assist to bathroom- pt was somewhat unsteady- likely due to the versed he had prior to the MRI. pt had no c/o pain or discomfort, poc obtained-will medicate appropriately when lunch arrives, call lance within reach, will continue to m
[2022-01-26] MEDS: ondansetron HCL 4 MG/2 ML VIAL IVPUSH (13:30)
--- NOTE | 2022-01-26 13:33 | PC.NURSE ---
pt a&ox3, pt ,medicated with insulin per order, pt c/o nausea and headache- pt medicated for nausea not due for tylenol as of yet, pt also c/o continued blurry vision, will continue to monitor
--- NOTE | 2022-01-26 14:28 | PC.NURSE ---
report called to floor
[2022-01-26] MEDS: Metoprolol Tartrate 50 MG TABLET PO ×2 (15:41→21:19)
[2022-01-26 16:00] VITALS: BP 140/91; PULSE 95; RESP 17; TEMP 36.4; O2SAT 95
[2022-01-26 16:48] LABS: Glucose, Whole Blood 260 mg/dL (60-115)
[2022-01-26 20:00] VITALS: BP 158/98; PULSE 81; RESP 17; TEMP 36.6; O2SAT 94
[2022-01-26 20:58] LABS: Glucose, Whole Blood 269 mg/dL (60-115)
[2022-01-26] MEDS: Cyclobenzaprine HCl 10 MG TABLET 20 MG PO (21:18)
[2022-01-26] MEDS: Enoxaparin Sodium 40 MG/0.4 ML SYRINGE SUBCUT (21:21)
[2022-01-26] MEDS: Insulin Glargine,Hum.rec.anlog 100 UNIT/ML 10 ML VIAL 20 UNIT SUBCUT (21:22)
[2022-01-27] VITALS (8 sets, daily range): BP systolic 109–143; BP diastolic 64–100; PULSE 61–98; RESP 16–20; TEMP 36.2–37.1; O2SAT 93–98
[2022-01-27] MEDS: Omeprazole 20 MG CAPSULE.DR PO (06:10)
[2022-01-27 06:14] LABS: Hematocrit 53.4 % (42.0-52.0); Hemoglobin 17.4 g/dl (14.0-18.0); Mean Corpuscular HGB Conc 32.6 g/dl (31.0-36.0); Mean Corpuscular Hemoglobin 28.4 pg (27.0-33.0); Mean Corpuscular Volume 87.3 fL (80.0-98.0); Platelet Count 254 X10*3/uL (160-400); Red Blood Count 6.12 X10*6/uL (4.60-5.80); Red Cell Distribution Width 14.2 % (11.0-16.0); White Blood Count 14.2 X10*3/uL (4.8-10.8)
[2022-01-27 06:34] LABS: Anion Gap 18 (12-20); Blood Urea Nitrogen 12 mg/dL (9-16); Carbon Dioxide 24 mmol/L (22-29); Chloride 100 mmol/L (96-108); Creatinine Clr Calc Pharmacy 66.3; Estimated Glomerular Filt Rate 50; Glucose Random 231 mg/dL (60-115); Potassium 4.2 mmol/L (3.3-5.1); Sodium 138 mmol/L (135-145)
[2022-01-27 07:12] LABS: Glucose, Whole Blood 247 mg/dL (60-115)
[2022-01-27] MEDS: Insulin Lispro 100 UNIT/ML 3 ML VIAL SUBCUT ×8 (07:40→20:28)
[2022-01-27] MEDS: amLODIPine Besylate 10 MG TABLET PO (07:41)
[2022-01-27] MEDS: Gabapentin 300 MG CAPSULE PO ×2 (07:41→20:27)
[2022-01-27] MEDS: 0.9 % Sodium Chloride Flush 3 ML SYRINGE IVFLUSH ×2 (07:41→22:37)
[2022-01-27] MEDS: Empagliflozin 10 MG TABLET PO (07:41)
[2022-01-27] MEDS: lisinopriL 10 MG TABLET PO (07:41)
[2022-01-27] MEDS: Aspirin Enteric Coated 81 MG TABLET.DR PO (07:41)
[2022-01-27] MEDS: Atorvastatin Calcium 20 MG TABLET PO (07:41)
[2022-01-27] MEDS: Metoprolol Tartrate 50 MG TABLET PO ×3 (07:41→20:27)
[2022-01-27] MEDS: Sertraline HCL 50 MG TABLET PO (07:41)
[2022-01-27] MEDS: Lactated Ringers 1,000 ML 100 ML IVCONT ×2 (09:32→19:12)
[2022-01-27 11:04] LABS: Glucose, Whole Blood 409 mg/dL (60-115)
[2022-01-27 13:54] LABS: Anion Gap 17 (12-20); Blood Urea Nitrogen 15 mg/dL (9-16); Calcium 8.6 mg/dL (8.4-10.2); Carbon Dioxide 22 mmol/L (22-29); Chloride 103 mmol/L (96-108); Creatinine Clr Calc Pharmacy 63.3; Estimated Glomerular Filt Rate 48; Glucose Random 288 mg/dL (60-115); Potassium 4.2 mmol/L (3.3-5.1); Sodium 138 mmol/L (135-145)
--- NOTE | 2022-01-27 14:00 | P.PNIM_ITS ---
Subjective Subjective Date of Service: 01/27/22 Interval History: Patient seen and examined at bedside. he has no acute complaints. Pt denies any dizziness, reports that his blurred vision has improved. he denies any chest pain, no sob, no abdpain, no n/v, no diarrhea or constipation. No urinary symptoms Review of Systems Review of Systems: Yes all other systems are reviewed and are negative Physical Exam Vital Signs: Vital Signs: Last Vital Signs Temp 98.7 F 01/27/22 11:12 Pulse 98 01/27/22 11:12 Resp 17 01/27/22 11:12 BP 109/64 01/27/22 11:12 Pulse Ox 97 01/27/22 11:12 O2 Del Method 01/27/22 11:12 BMI result Body Mass Index 35.5 Const: General: cooperative and no acute distress Eyes: General: appearance normal, both eyes and all related structures Resp: Other: No respiratory distress, clear to auscultations bilaterally GI: Other: Abdomen soft, no tenderness, no rebound or guarding Extrem: Other: No lower extremity edema Objective Data Active Medications Acetaminophen (Acetaminophen 325 Mg Tablet) 650 mg PO Q6H PRN PRN Reason: Pain, Mild (Pain Scale 1-3) Last Admin: 01/26/22 08:19 Dose: 650 mg Documented By: BARON Amlodipine Besylate (Amlodipine Besylate 10 Mg Tablet) 10 mg PO DAILY [facility]; Protocol Last Admin: 01/27/22 07:41 Dose: 10 mg Documented By: RAFFAELE Aspirin (Aspirin Enteric Coated 81 Mg Tablet.) 81 mg PO DAILY [facility] Last Admin: 01/27/22 07:41 Dose: 81 mg Documented By: RAFFEALE Atorvastatin Calcium (Atorvastatin Calcium 20 Mg Tablet) 20 mg PO DAILY [facility] Last Admin: 01/27/22 07:41 Dose: 20 mg Documented By: RAFFAELE Cyclobenzaprine HCl (Cyclobenzaprine Hcl 10 Mg Tablet) 20 mg PO BEDTIME [facility] Last Admin: 01/26/22 21:18 Dose: 20 mg Documented By: PRADIP Dextrose (Dextrose 50 % 25 Gm/50 Ml Syringe) 25 gm IVPUSH Q15M PRN; Protocol PRN Reason: per Hypoglycemia Standing Ord. Empagliflozin (Empagliflozin 10 Mg Tablet) 10 mg PO DAILY [facility] Last Admin: 01/27/22 07:41 Dose: 10 mg Documented By: RAFFAELE Enoxaparin Sodium (Enoxaparin Sodium 40 Mg/0.4 Ml Syringe) 40 mg SUBCUT Q24H [facility] Last Admin: 01/26/22 21:21 Dose: 40 mg Documented By: PRADIP Gabapentin (Gabapentin 300 Mg Capsule) 300 mg PO BID [facility] Last Admin: 01/27/22 07:41 Dose: 300 mg Documented By: RAFFAELE Glucose (Glucose Gel 15 Gm Gel..Gram.) 15 gm PO Q15M PRN; Protocol PRN Reason: per Hypoglycemia Standing Ord. Glucose (Glucose Gel 15 Gm Gel..Gram.) 15 gm PO Q15M PRN; Protocol PRN Reason: per Hypoglycemia Standing Ord. Lactated Ringer's (Lr) 1,000 mls @ 100 mls/hr IVCONT .Q10H [facility] Last Admin: 01/27/22 09:32 Dose: 100 mls/hr Documented By: RAFFAELE Insulin Glargine (Insulin Glargine,Hum.Rec.Anlog 100 Unit/Ml 10 Ml Vial) 20 unit SUBCUT BEDTIME [facility] Last Admin: 01/26/22 21:22 Dose: 20 unit Documented By: PRADIP Insulin Human Lispro (Insulin Lispro 100 Unit/Ml 3 Ml Vial) 0 unit SUBCUT QIDACHS [facility]; Protocol Last Admin: 01/27/22 11:41 Dose: 10 unit Documented By: RAFFAELE Insulin Human Lispro (Insulin Lispro 100 Unit/Ml 3 Ml Vial) 5 unit SUBCUT QIDACHS [facility] Last Admin: 01/27/22 11:42 Dose: 5 unit Documented By: RAFFAELE Melatonin (Melatonin 3 Mg Tablet) 6 mg PO BEDTIME PRN PRN Reason: Insomnia Metoprolol Tartrate (Metoprolol Tartrate 50 Mg Tablet) 50 mg PO TID [facility]; Pr otocol Last Admin: 01/27/22 07:41 Dose: 50 mg Documented By: RAFFAELE Omeprazole (Omeprazole 20 Mg Capsule.) 20 mg PO DAILY@0630 [facility] Last Admin: 01/27/22 06:10 Dose: 20 mg Documented By: DEBORAORALMilton Ondansetron HCl (Ondansetron Hcl 4 Mg/2 Ml Vial) 4 mg IVPUSH Q8H PRN PRN Reason: Nausea and Vomiting Last Admin: 01/26/22 13:30 Dose: 4 mg Documented By: BRITTNEY Pharmacy Consult (Consult Rx Perform Med Rec) 1 each MISCELLANE ONCE PRN PRN Reason: Consult order Sertraline HCl (Sertraline Hcl 50 Mg Tablet) 50 mg PO DAILY [facility] Last Admin: 01/27/22 07:41 Dose: 50 mg Documented By: RAFFAELE Sodium Chloride (0.9 % Sodium Chloride Flush 3 Ml Syringe) 3 ml IVFLUSH QSHIFT [facility] Last Admin: 01/27/22 07:41 Dose: 3 ml Documented By: RAFFAELE Labs CBC & Chem 7: 01/27/22 05:41 01/27/22 13:30 Labs: Laboratory Results - last 24 hr 01/26/22 01/26/22 01/27/22 16:43 19:49 05:41 MCV 87.3 MCH 28.4 MCHC 32.6 RDW 14.2 Plt Count 254 MPV 12.0 Absolute Nucleated RBC 0.000 Nucleated RBC % (auto) 0.0 Anion Gap Estim Creat Clear Calc Estimated GFR POC Glucose 260 H 269 H Random Glucose Calcium 01/27/22 01/27/22 01/27/22 05:41 07:05 10:54 MCV MCH MCHC RDW Plt Count MPV Absolute Nucleated RBC Nucleated RBC % (auto) Anion Gap 18 Estim Creat Clear Calc 66.3 Estimated GFR 50 POC Glucose 247 H 409 H* Random Glucose 231 H Calcium 9.0 D 01/27/22 13:30 MCV MCH MCHC RDW Plt Count MPV Absolute Nucleated RBC Nucleated RBC % (auto) Anion Gap 17 Estim Creat Clear Calc 63.3 Estimated GFR 48 POC Glucose Random Glucose 288 H Calcium 8.6 Assessment and Plan (1) BRENDON (acute kidney injury): Status: Acute (2) Hyperosmolar hyperglycemic state (HHS): Status: Acute (3) Hypertension, uncontrolled: Status: Acute (4) Blurry vision: Status: Acute (5) Dizziness: Status: Acute Plan This is a 51-year-old male with pertinent history of uncontrolled insulin-depen dent diabetes mellitus, uncontrolled blood pressure due to medication noncompliance, generalized anxiety disorder, mixed hyperlipidemia who presents to the emergency department for evaluation of dizziness and blurring of vision. # dizziness/blurry vision - dizziness resolved - blurry vision improving - evaluated by Neurology, MRI negative for any acute findings, changes seen possibly congenital. - patient has blurry vision will need follow-up outpatient with Ophthalmology # BRENDON - initially resolved, but patient has now developed worsening a function - will follow BMP - nephrology consulted - IV have # Hyperosmolar hyperglycemic nonketotic state - Glucose improving - s/p IVF and IV insulin - on lantus 20 and silding scale (on latnus 15 + orals at home); continue sliding scale but add 5 units scheduled on top- continue - POC QIDACHS -A1C > 14 - DM education provided, would benefit from further education via PCP #.? Hypertensive emergency - Improved - bp stable - continue home meds #.? Lactic acidosis, type a resolved # Obesity II -needs weight loss and optimization of risk factors #.? Diabetic neuropathy -on gabapentin- continue #.? Generalized anxiety disorder -on sertraline- cont Full Code DVT pptx -- Lovenox requies ongoing hospitalization due to persistent BRENDON and hyperglycemia. anticipate an additional 24 to 48 hours to accomplish this Quality Stroke Does the patient have a stroke diagnosis?: No VTE Prior VTE?: No VTE Risk Level:: Medical - moderate - high VTE Device Contraindication: Treatment Not Indicated VTE Drug Contraindication: N/A - Med Ordered
[2022-01-27 14:55] LABS: B Type Natriuretic Peptide 11 pg/mL (<100)
[2022-01-27 16:30] LABS: Glucose, Whole Blood 209 mg/dL (60-115)
[2022-01-27] MEDS: Acetaminophen 325 MG TABLET 650 MG PO ×2 (16:36→22:37)
[2022-01-27 19:38] LABS: Glucose, Whole Blood 220 mg/dL (60-115)
[2022-01-27] MEDS: Cyclobenzaprine HCl 10 MG TABLET 20 MG PO (20:26)
[2022-01-27] MEDS: Enoxaparin Sodium 40 MG/0.4 ML SYRINGE SUBCUT (20:28)
[2022-01-27] MEDS: Insulin Glargine,Hum.rec.anlog 100 UNIT/ML 10 ML VIAL 20 UNIT SUBCUT (21:04)
[2022-01-27 21:33] LABS: Creatinine Urine 67.45 mg/dL
[2022-01-28] VITALS: RESP 18
[2022-01-28 03:53] VITALS: BP 152/91; PULSE 67; RESP 17; TEMP 36.3; O2SAT 95
[2022-01-28] MEDS: Lactated Ringers 1,000 ML 100 ML IVCONT (05:05)
[2022-01-28] MEDS: Omeprazole 20 MG CAPSULE.DR PO (05:36)
[2022-01-28 06:28] LABS: MANUAL DIFF FLAG NO
[2022-01-28 06:29] LABS: Basophils Absolute Auto 0.1 X10*3/uL (0.0-0.2); Basophils Percent Auto 0.5 % (0-2); Eosinophils Absolute Auto 0.2 X10*3/uL (0.0-0.4); Eosinophils Percent Auto 1.6 % (0-4); Hematocrit 48.9 % (42.0-52.0); Imm Gran Abs Auto 0.08 X10*3/uL (0.00-0.03); Imm Gran Pct Auto 0.7 % (0.0-0.4); Lymphocytes Absolute Auto 3.4 X10*3/uL (1.2-4.9); Lymphocytes Percent Auto 28.2 % (20-40); Mean Corpuscular HGB Conc 32.7 g/dl (31.0-36.0); Mean Corpuscular Hemoglobin 28.9 pg (27.0-33.0); Mean Corpuscular Volume 88.3 fL (80.0-98.0); Mean Platelet Volume 12.7 fL (9.4-12.4); Monocytes Absolute Auto 0.6 X10*3/uL (0.1-1.2); Monocytes Percent Auto 4.7 % (2-11); Neutrophils Absolute Auto 7.7 x10*3/uL (2.0-8.3); Neutrophils Percent Auto 64.3 % (45-73); Platelet Count 236 X10*3/uL (160-400); Red Blood Count 5.54 X10*6/uL (4.60-5.80); Red Cell Distribution Width 14.2 % (11.0-16.0); White Blood Count 11.9 X10*3/uL (4.8-10.8)
[2022-01-28 07:12] LABS: Anion Gap 17 (12-20); Blood Urea Nitrogen 15 mg/dL (9-16); Calcium 8.4 mg/dL (8.4-10.2); Carbon Dioxide 23 mmol/L (22-29); Chloride 103 mmol/L (96-108); Estimated Glomerular Filt Rate > 60; Glucose Random 184 mg/dL (60-115); Potassium 3.7 mmol/L (3.3-5.1); Sodium 139 mmol/L (135-145)
[2022-01-28 08:00] VITALS: BP 152/114; PULSE 79; RESP 18; TEMP 36.2; O2SAT 96
[2022-01-28 08:06] LABS: Glucose, Whole Blood 184 mg/dL (60-115)
[2022-01-28] MEDS: Aspirin Enteric Coated 81 MG TABLET.DR PO (08:47)
[2022-01-28] MEDS: Gabapentin 300 MG CAPSULE PO (08:47)
[2022-01-28] MEDS: Atorvastatin Calcium 20 MG TABLET PO (08:47)
[2022-01-28] MEDS: Metoprolol Tartrate 50 MG TABLET PO ×2 (08:47→10:58)
[2022-01-28] MEDS: amLODIPine Besylate 10 MG TABLET PO (08:47)
[2022-01-28] MEDS: Empagliflozin 10 MG TABLET PO (08:47)
[2022-01-28] MEDS: Sertraline HCL 50 MG TABLET PO (08:47)
[2022-01-28] MEDS: Insulin Lispro 100 UNIT/ML 3 ML VIAL SUBCUT ×2 (08:49)
[2022-01-28] MEDS: 0.9 % Sodium Chloride Flush 3 ML SYRINGE IVFLUSH (08:50)
--- NOTE | 2022-01-28 09:46 | PM.DS ---
DS: Providers Provider Date of Service: 01/28/22 Date of admission: 01/25/22 20:30 Primary care physician: Daniel Cisneros MD Consults: 01/27/22 14:00 Consult to Nephrology Routine Consulting Provider: [facility] Reason for consultation: worsening BRENDON DS: Diagnosis Discharge Diagnosis (1) BRENDON (acute kidney injury): Status: Acute (2) Hyperosmolar hyperglycemic state (HHS): Status: Acute (3) Hypertension, uncontrolled: Status: Acute (4) Blurry vision: Status: Acute (5) Dizziness: Status: Acute DS: Summary Hospital Course Hospital Course: This is a 51-year-old male with past medical history of diabetes, hypertension, generalized anxiety disorder, hyperlipidemia who presents to the hospital with complaints of dizziness and blurred vision. 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 Dizziness resolved. Patient to follow-up with Ophthalmology outpatient. On this presentation patient was also found to have significant elevated blood pressure as well as hyperglycemia. Both treated and resolved. Patient has a hemoglobin A1c of 14, diabetic Education was provided, and Lantus was increased from 15-20. Recommend follow-up with primary care physician for further management of diabetes. Patient's antihypertensives were also evaluated, will increase his benazepril to 20 mg daily as well as genu amlodipine. Nephrology referral was also provided for an controlled hypertension. Patient also had BRENDON on this admission which resolved. Patient to follow-up with Ophthalmology, PCP, and nephrology for management of above. On day of discharge patient is symptom-free, kidney function back to baseline. Time Spent with Patient Time attestation: Total time spent providing and/or coordinating discharge services: Discharge coordination time: Greater than 30 minutes Quality: Safe Use of Opioids Does Pt have an Active Cancer Diagnosis on the Problem List?: No Quality: Stroke Does the patient have a stroke diagnosis?: No Physical Exam Vital Signs: Vital Signs: Last Vital Signs Temp 97.1 F 01/28/22 08:00 Pulse 79 01/28/22 08:00 Resp 18 01/28/22 08:00 BP 152/114 H 01/28/22 08:00 Pulse Ox 96 01/28/22 08:00 O2 Del Method 01/28/22 08:00 BMI result Body Mass Index 35.5 DS: Data Data Completed and Pending Completed studies during hospitalization [Text1]: Procedures Drainage of Peritoneal Cavity, Percutaneous Approach (02/15/20) Reposition Sigmoid Colon, Open Approach (01/18/20) Labs on day of discharge: Laboratory Results - last 24 hr 01/27/22 01/27/22 01/27/22 10:54 13:30 14:17 WBC RBC Hgb Hct MCV MCH MCHC RDW Plt Count MPV Immature Gran % (Auto) Neut % (Auto) Lymph % (Auto) [place] % (Auto) Eos % (Auto) Baso % (Auto) Lymph # (Auto) [place] # (Auto) Eos # (Auto) Baso # (Auto) Abs Immat Gran (auto) Absolute Neuts (auto) Absolute Nucleated RBC Nucleated RBC % (auto) Sodium 138 Potassium 4.2 Chloride 103 Carbon Dioxide 22 Anion Gap 17 BUN 15 Creatinine 1.56 H Estim Creat Clear Calc 63.3 Estimated GFR 48 POC Glucose 409 H* Random Glucose 288 H Calcium 8.6 B-Natriuretic Peptide 11 Ur Random Sodium Urine Creatinine 01/27/22 01/27/22 01/27/22 15:29 19:25 21:02 WBC RBC Hgb Hct MCV MCH MCHC RDW Plt Count MPV Immature Gran % (Auto) Neut % (Auto) Lymph % (Auto) [place] % (Auto) Eos % (Auto) Baso % (Auto) Lymph # (Auto) [place] # (Auto) Eos # (Auto) Baso # (Auto) Abs Immat Gran (auto) Absolute Neuts (auto) Absolute Nucleated RBC Nucleated RBC % (auto) Sodium Potassium Chloride Carbon Dioxide Anion Gap BUN Creatinine Estim Creat Clear Calc Estimated GFR POC Glucose 209 H 220 H Random Glucose Calcium B-Natriuretic Peptide Ur Random Sodium 64.0 Urine Creatinine 67.45 01/28/22 01/28/22 01/28/22 05:34 05:34 07:39 WBC 11.9 H RBC 5.54 Hgb 16.0 Hct 48.9 MCV 88.3 MCH 28.9 MCHC 32.7 RDW 14.2 Plt Count 236 MPV 12.7 H Immature Gran % (Auto) 0.7 H Neut % (Auto) 64.3 Lymph % (Auto) 28.2 [place] % (Auto) 4.7 Eos % (Auto) 1.6 Baso % (Auto) 0.5 Lymph # (Auto) 3.4 [place] # (Auto) 0.6 Eos # (Auto) 0.2 Baso # (Auto) 0.1 Abs Immat Gran (auto) 0.08 H Absolute Neuts (auto) 7.7 Absolute Nucleated RBC 0.000 Nucleated RBC % (auto) 0.0 Sodium 139 Potassium 3.7 Chloride 103 Carbon Dioxide 23 Anion Gap 17 BUN 15 Creatinine 1.19 Estim Creat Clear Calc 83.0 Estimated GFR > 60 POC Glucose 184 H Random Glucose 184 H D Calcium 8.4 B-Natriuretic Peptide Ur Random Sodium Urine Creatinine Discharge Plan Discharge Anticipated Discharge Date/Time: 01/28/22 10:55 Patient Disposition: Home, Self-Care Discharge Diagnosis: Hypertensive urgency, Hyperglycemia, dizziness, BRENDON Referrals: Daniel Cisneros MD [Primary Care Provider] - 1 Week Bony Moreland MD [Physician] - 1 Week Discharge Medications: Continued sertraline 50 mg Tablet 50 mg PO DAILY gabapentin 300 mg Capsule 300 mg PO BID metoprolol tartrate 50 mg tablet 1 tab PO TID cyclobenzaprine 10 mg Tablet 20 mg PO BEDTIME amlodipine 10 mg tablet 1 tab PO DAILY Janumet 50-1,000 mg Tablet 1 tab PO BID Jardiance 10 mg Tablet 10 mg PO DAILY omeprazole 20 mg capsule,delayed release(DR/EC) 1 cap PO DAILY atorvastatin 20 mg tablet 20 mg PO DAILY aspirin [Adult Low Dose Aspirin] 81 mg tablet,delayed release (DR/EC) 81 mg PO DAILY Changed benazepril 10 mg tablet 2 tab PO DAILY 60 Days Qty: 120 1RF insulin glargine [Lantus Solostar U-100 Insulin] 100 unit/mL (3 mL) insulin pen 20 unit subcut BEDTIME 30 Days Qty: 6 0RF Discharge Orders: Discharge Order (Routine); Ordered 01/28/22 Ordered By: Jovanni Clemons Diet: Diabetic diet Activity on Discharge: As tolerated Stand Alone Forms: Patient Portal Discharge page Care Plan Goals: To avoid hospitalization please follow with opthalmology for the blurry vision increase the dose of lantus to 20 units at bedtime increase Benazepril to 20 mg follow PCP for BP monitoring as well as management of your Diabetes as you may require higher/adjusted doses of insulin Health Concerns: re-hospitalization Hypertension and unclontrolled diabetes Plan of Treatment: follow up with opthalmology Follow PCP as well as nephrology for management of poorly controlled HTN Follow PCP for management of diabetes Assessment: See above
--- NOTE | 2022-01-28 10:16 | MHC.CM.PN ---
PT TO DC HOME TODAY WITH NO SERVICES PT WILL TRANSPORT HIMSELF
[2022-01-28 11:24] VITALS: BP 130/78; PULSE 81; RESP 19; TEMP 36.1; O2SAT 96
== END 2022-01-28 12:08 | disposition home or self-care (01) | DRG 420 ==
LOC: HO.ED 16:30 → HO.EDOVER 21:12 → HO.S3 01-26 14:05
PROVIDERS: Emergency Medicine; Family Medicine; Admitting Provider Student in an Organized Health Care Education/Training Program; Emergency Provider Emergency Medicine; PCP Internal Medicine; Visit Provider Internal Medicine
DX: E11.00 Type 2 diabetes mellitus with hyperosmolarity without nonketotic hyperglycemic-hyperosmolar coma (NKHHC) (principal); E87.20 Acidosis, unspecified; N17.9 Acute kidney failure, unspecified; E11.40 Type 2 diabetes mellitus with diabetic neuropathy, unspecified; E78.5 Hyperlipidemia, unspecified; F41.1 Generalized anxiety disorder; E66.9 Obesity, unspecified; K21.9 Gastro-esophageal reflux disease without esophagitis; I16.1 Hypertensive emergency; I10 Essential (primary) hypertension; Z20.822 Contact with and (suspected) exposure to COVID-19; Z68.35 Body mass index [BMI] 35.0-35.9, adult; Z56.0 Unemployment, unspecified; Z79.4 Long term (current) use of insulin; Z79.82 Long term (current) use of aspirin; Z79.899 Other long term (current) drug therapy
CPT/HCPCS: 36415; 70551; 74176; 80048; 80053; 80061; 80307; 81001; 82009; 82077; 82248; 82803; 82947; 83036; 83605; 83690; 83880; 84300; 84484; 85025; 85027; 87635; 93005; 99285; J1650; J2250; J2405

== ENCOUNTER 2023-02-14 08:15 | Outpatient (AMB) | payer OTHER, SELFPAY ==
[2023-02-14 08:20] VITALS: BP 148/97; PULSE 102; BMI 34.5
--- NOTE | 2023-02-14 08:20 | MHC.OFFVIS ---
Intake Vital Signs 02/14/23 08:20 Height 5 ft 6 in Weight 214 lb BMI 34.5 BP 148/97 H Blood Pressure Location Rt brachial Position Sitting Pulse 102 H Intake Visit Reasons: diverticulitis Intake Note: Patient referred for diverticulitis. Patient experiencing abd pain, vomiting, nausea. Denies constipation. Symptoms with abd pain started about 4 days ago. Taking ibuprofen as needed. Zofran for nausea. 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 The pain is located mainly in the left upper quadrant but also felt in all the quadrants. He reports nausea, vomiting, diarrhea with occasional rectal bleeding. Bowels seem to be stimulated by eating a meal. He reports feeling flush with sweating especially when the pain is most severe. The pain also extends up into the right chest up into his right shoulder and arm. The current symptoms began approximately 4 days ago. He previously underwent an upper endoscopy by Dr. Concepcion but has not undergone a colonoscopy since his colon surgery. He reports losing approximately 30 lb with dieting. His diet has been mainly salads. He denies using protein shakes. [facility] Medical History Blurry vision Obesity Elevated blood pressure reading Hypertension, uncontrolled Renal insufficiency Sleep apnea Diabetes Lower GI bleed Diverticulosis Hematochezia Right ankle pain History of diverticulitis Mitral valve disease Anxiety GERD (gastroesophageal reflux disease) Constipation Hyperlipidemia Hypertension Surgical History History of colonoscopy History of mitral valve repair Status post Ammy procedure (10/21/19) H/O mitral valve repair Family History Mother Diabetes mellitus Father Diabetes mellitus Social History Household Members: Significant Other Housing: Apartment Are you a primary foster care therapist to a significant other at home: No Do you presently have visiting nurse or other home services: No Unable to assess alcohol history related to: Unable to respond Alcohol intake: current Alcohol intake frequency: a few times a month Alcohol type: beer and hard liquor Patient Tobacco Use Status: Never used Tobacco Second Hand Smoke Exposure: No Substance Use Type: Marijuana Advance Directives Date on File: 02/22/20 service: No Current occupational status: unemployed Review of Systems Const Reports chills, Denies fatigue, Reports fever(s), Denies headache(s) and Denies weakness ENT Denies dizziness and Denies headache(s) Card Denies chest pain, Denies lightheadedness, Denies dyspnea and Denies other (Palpitations) Resp Denies cough, Denies dyspnea, Denies wheezing and Denies other ( shortness of breath) GI Reports abdominal pain, Reports bloating, Reports loose stools, Reports nausea and Reports vomiting Musc Details: Left lower back pain Denies numbness and Denies tingling Neuro Denies dizziness, Denies headache(s), Denies numbness, Denies tingling, Denies paresthesias and Denies weakness Psych Denies anxiety and Denies depression Endo Denies fatigue Aller/Immun Denies wheezing Physical Exam Const General: no acute distress Nutritional Appearance: obese Orientation/consciousness: patient oriented x3 Limitations: no limitations HEENT Head: Yes normocephalic and Yes atraumatic Ears: hearing grossly normal bilaterally Resp Effort & Inspection: normal respiratory effort, no audible wheezes, no cough and no respiratory distress GI Other: Soft, obese, tender in the left upper quadrant towards the left flank, no tenderness in the left lower quadrant with no rebound, no guarding, no rigidity. Well-healed midline incision and left lower quadrant incision without hernia. Percussion: Yes normal to percussion Auscultation: normal bowel sounds Rectal Exam - Male: Yes deferred Skin General skin exam: no rashes or lesions noted Neuro General: patient oriented x3 Extrem General: Yes no clubbing, cyanosis or edema Assessment & Plan Assessment & Plan (1) Abdominal pain, left upper quadrant: Code(s): R10.12 - Left upper quadrant pain (2) Acute generalized abdominal pain: Code(s): R10.84 - Generalized abdominal pain Plan 52-year-old male patient presenting with prior history of diverticulitis status post sigmoid colectomy now with diffuse abdominal pain of 4 days duration associated with nausea, vomiting, diarrhea and occasional bleeding per rectum. He is unaware of any inciting event and denies eating any unusual foods. He has lost approximately 30 lb with dieting. On examination the pain is felt most severely in the upper abdomen especially right upper quadrant. Findings may be suggestive of acute cholecystitis due to cholelithiasis. I recommended the patient be evaluated in the emergency department today. He will need laboratories in possibly CT abdomen and pelvis to better evaluate his current symptoms. He expressed understanding and agrees with the plan. Coding Level of Care Code Est Pt Level 4 (56224) Diagnoses Abdominal pain, left upper quadrant R10.12 Acute generalized abdominal pain R10.84
== END 2023-02-14 08:47 | disposition home or self-care (01) ==
PROVIDERS: PCP Internal Medicine; Visit Provider Surgery
DX: R10.12 Left upper quadrant pain (principal); R10.84 Generalized abdominal pain
CPT/HCPCS: 99214

== ENCOUNTER → 2023-02-14 08:15 | Outpatient (BNVA) | payer OTHER, SELFPAY | PROVIDERS: PCP Internal Medicine; Visit Provider Surgery ==

== ENCOUNTER 2023-02-14 08:38 | Observation (INO) | payer OTHER, SELFPAY ==
--- NOTE | ~2023-02-14 | CT_ITS ---
EXAMINATION: CT ABDOMEN AND PELVIS WITH CONTRAST CLINICAL INFORMATION: Left lower quadrant pain COMPARISON: 01/25/2022 TECHNIQUE: Multidetector volumetric images were obtained from the superior aspect of the liver through the pubic symphysis following administration 85 mL of Omnipaque 350 intravenous contrast. Sagittal and coronal reformatted images were obtained on the technologist's workstation. Oral contrast: No This CT examination was performed using dose optimization techniques as appropriate, variously including the following: *Automated exposure control *Adjustment of mA and/or kV according to patient size (this includes techniques or standardized protocols for targeted exams where dose is matched to indication/reason for exam; i.e. extremities or head) *Use of iterative reconstruction technique DLP: 877 mGy-cm FINDINGS: LUNG BASES: There is a stellate nodule at 4.9 mm in the anterior left lower lung. This was not fully covered on the prior study. I would recommend formal chest CT. Lung bases otherwise clear. No pleural effusions. LIVER, GALLBLADDER, AND BILIARY TREE: Moderate hepatic steatosis.The liver is prominent. No focal hepatic mass. No intrahepatic biliary dilatation. The gallbladder is unremarkable with no evidence of radiopaque gallstones, gallbladder wall thickening, or obvious pericholecystic inflammatory changes. PANCREAS: Unremarkable. SPLEEN: Unremarkable. ADRENAL GLANDS: Unremarkable. KIDNEYS AND URETERS: No solid mass or hydronephrosis or perinephric collection. 2 small to characterize focus in the anterior lower right kidney probably a tiny cyst which no further workup is needed. BLADDER: Unremarkable. GASTROINTESTINAL TRACT: No bowel obstruction or right or left lower quadrant inflammation. Appendix normal. ABDOMINAL WALL: Small bilateral fat-containing inguinal hernias are stable. LYMPH NODES: Normal. VASCULAR: Minor atherosclerotic change in the aorta. PELVIC VISCERA: Unremarkable. OSSEOUS STRUCTURES: Mild degenerative change lower lumbar spine. No acute abnormalities. CT/CT abdomen pelvis w IV con IMPRESSION: 1. Hepatic steatosis. No acute abnormalities. 2. There is a stellate nodule at 4.9 mm in the anterior left lower lung. Recommend formal chest CT. Fleischner guidelines were followed.
[2023-02-14 08:47] VITALS: BP 169/111; PULSE 88; RESP 18; TEMP 36.8; O2SAT 98; BMI 33.7
--- NOTE | 2023-02-14 08:56 | ED.ABDPAIN ---
HPI - Abdominal Pain General Chief Complaint: Abdominal Pain Stated Complaint: Sharp Stomach Pain Sent By Dr Echevarria Time Seen by Provider: 02/14/23 08:50 Source: patient and old records reviewed Mode of arrival: ambulatory Limitations: no limitations History of Present Illness HPI narrative: 52 yo male with PMH of HTN, HLD, MVR - tissue, GERD, diabetes, recurrent diverticulitis s/p Ammy procedure who follows with Dr. Echevarria regularly here with c/o 3 days lower abdominal pain sharp stabbing with n/v/d and chills. Has felt hot as well. He is worried he has diverticulitis again. MD elicited complaint: abdominal pain Pertinent past history: diverticulitis Onset (ago): day(s) (3) Pain Consistency: constant Location: LLQ Severity: moderate Quality: stabbing Radiation: none Migration to: no migration Exacerbating factors: eating and movement Relieving factors: nothing Context: history of similar episodes Associated symptoms: nausea, vomiting, diarrhea and chills Related Data Home Medications Medication Instructions Recorded Confirmed aspirin 81 mg tablet,delayed 81 mg PO DAILY 12/28/19 01/25/22 release (Adult Low Dose Aspirin) atorvastatin 20 mg tablet 20 mg PO DAILY 12/28/19 01/25/22 gabapentin 300 mg capsule 300 mg PO BID 01/07/20 01/25/22 sertraline 50 mg tablet 50 mg PO DAILY 02/16/20 01/25/22 omeprazole 20 mg capsule,delayed 1 cap PO DAILY 01/19/21 01/25/22 release amlodipine 10 mg tablet 1 tab PO DAILY 01/25/22 01/25/22 cyclobenzaprine 10 mg tablet 20 mg PO BEDTIME 01/25/22 01/25/22 empagliflozin 10 mg tablet 10 mg PO DAILY 01/25/22 01/25/22 (Jardiance) sitagliptin phosphate 50 1 tab PO BID 01/25/22 01/25/22 mg-metformin 1,000 mg tablet (Janumet) Previous Rx's Medication Instructions Recorded benazepril 10 mg tablet 2 tab PO DAILY 60 days #120 tabs 01/28/22 Allergies Allergy/AdvReac Type Severity Reaction Status Date / Time morphine [MORPHINE] Allergy Unknown HIVES, rash Verified 02/14/23 08:50 Review of Systems Review of Systems Constitutional : No Weight loss, No Fever, pos Chills ENT/Mouth : No sore throat, No Rhinorrhea Eyes: No Swelling, No Redness Cardiovascular : No Chest Pain, No SOB, NoEdema Respiratory : No Cough, No Sputum, No Wheezing Gastrointestinal : Positive Nausea, Positive Vomiting, positive Diarrhea, positive abdominal Pain, No Hematochezia, No Melena Genitourinary : No Dysuria, No Urinary Frequency, No Hematuria, No Urgency Musculoskeletal : No joint pain, No Myalgias, No Joint Swelling Skin : No Skin Lesions, No rash Neuro : No Weakness, No Numbness, No Dizziness, No Headache Psych : No Anxiety/Panic, No Depression Heme/Lymph: No Bruising, No Lymphadenopathy Endocrine : No Polyuria, No Polydipsia All other systems reviewed and are negative. [facility] Past Medical History Source: old records reviewed Medical History Blurry vision Obesity Elevated blood pressure reading Hypertension, uncontrolled Renal insufficiency Sleep apnea Diabetes Lower GI bleed Diverticulosis Hematochezia Right ankle pain History of diverticulitis Mitral valve disease Anxiety GERD (gastroesophageal reflux disease) Constipation Hyperlipidemia Hypertension Surgical History History of colonoscopy History of mitral valve repair Status post Ammy procedure (10/21/19) H/O mitral valve repair Family History Family History Mother Diabetes mellitus Father Diabetes mellitus Social History Social History Household Members: Significant Other Housing: Apartment Are you a primary critical care educator to a significant other at home: No Do you presently have visiting nurse or other home services: No Unable to assess alcohol history related to: Unable to respond Alcohol intake: current Alcohol intake frequency: holidays/special occasions only Alcohol type: beer and hard liquor Patient Tobacco Use Status: Never used Tobacco Smoked in Last 30 Days: No Second Hand Smoke Exposure: No Use of substances other than those prescribed or required for medical reasons: Yes Substance Use Type: Marijuana Advance Directives: Yes Advance Directives on File: Yes Advance Directives Date on File: 02/22/20 service: No Current occupational status: unemployed Physical Exam ED Vital Signs: Vital Signs - 24 hr 02/14/23 08:47 02/14/23 12:26 Temperature 98.2 F Pulse Rate 88 85 Respiratory Rate 18 18 Blood Pressure 169/111 H 154/103 H Pulse Oximetry 98 98 Oxygen Delivery Method Room Air Room Air BMI result Body Mass Index 33.7 Appearance: Alert. Oriented X3. No acute distress. Eyes: Pupils equal, round and reactive to light. ENT: Pharynx normal. Neck: Normal inspection. Neck supple. CVS: Normal heart rate and rhythm. Pulses normal. Respiratory: No respiratory distress. Breath sounds normal. Abdomen: Soft and non-tender. Skin: Skin warm and dry. Normal skin color. Normal skin turgor. Extremities: No lower extremity edema. Neuro: Oriented X 3. No motor deficit. No sensory deficit. Course Course Course Narrative: at this time possible infection suspected 1006am - IV zosyn and cultures ordered Medical Decision Making Medical Decision Making [facility] Narrative: 52 yo male with PMH of HTN, HLD, MVR - tissue, GERD, diabetes, recurrent diverticulitis s/p Ammy procedure here with c/o LLQ pain with n/v/d and concern for recurrent diverticulitis. At this time labs, CT scan, IVF, IV dilaudid for pain. Does have hx of same in the past. Differential Diagnosis Differential Diagnoses: The differential diagnosis associated with the presentation includes diverticulitis, colitis, renal colic Admission/Observation Consideration of admission/observation: Escalation of care including admission/observation considered scope by Dr. Sr 3pm Consult Healthcare Provider Management of the patient was discussed with: Brownell Operator (surgery and GI involved) Lab Data [facility] Lab Attestation statement: I reviewed the patient's lab results. 02/14/23 09:30 02/14/23 09:30 Labs: Lab Results 02/14/23 02/14/23 Range/Units 09:30 10:13 WBC 15.4 H (4.8-10.8) X10*3/uL RBC 5.71 (4.60-5.80) X10*6/uL Hgb 17.0 (14.0-18.0) g/dl Hct 51.4 (42.0-52.0) % MCV 90.0 (80.0-98.0) fL MCH 29.8 (27.0-33.0) pg MCHC 33.1 (31.0-36.0) g/dl RDW 14.7 (11.0-16.0) % Plt Count 286 (160-400) X10*3/uL MPV 11.5 (9.4-12.4) fL Immature Gran % (Auto) 0.8 H (0.0-0.4) % Neut % (Auto) 69.9 (45-73) % Lymph % (Auto) 21.5 (20-40) % [place] % (Auto) 6.4 (2-11) % Eos % (Auto) 1.0 (0-4) % Baso % (Auto) 0.4 (0-2) % Lymph # (Auto) 3.3 (1.2-4.9) X10*3/uL [place] # (Auto) 1.0 (0.1-1.2) X10*3/uL Eos # (Auto) 0.2 (0.0-0.4) X10*3/uL Baso # (Auto) 0.1 (0.0-0.2) X10*3/uL Abs Immat Gran (auto) 0.12 H (0.00-0.03) X10*3/uL Absolute Neuts (auto) 10.8 H (2.0-8.3) x10*3/uL Absolute Nucleated RBC 0.000 (0.0-0.012) X10*3/uL Nucleated RBC % (auto) 0.0 (0.0-0.2) /100WBC Sodium 139 (135-145) mmol/L Potassium 4.2 (3.3-5.1) mmol/L Chloride 104 (96-108) mmol/L Carbon Dioxide 23 (22-29) mmol/L Anion Gap 16 (12-20) BUN 11 (9-16) mg/dL Creatinine 1.22 (0.5-1.4) mg/dL Estim Creat Clear Calc 78.0 Estimated GFR > 60 Random Glucose 115 (60-115) mg/dL Lactic Acid 3.3 H* (0.5-2.0) mmol/L Calcium 9.2 D (8.4-10.2) mg/dL Magnesium 1.9 (1.6-2.6) mg/dL Total Bilirubin 0.5 (0.0-1.0) mg/dL Direct Bilirubin 0.2 (0.0-0.5) mg/dL AST 32 (5-37) U/L ALT 58 H (0-40) U/L Alkaline Phosphatase 38 L (39-117) U/L Total Protein 7.5 (6.5-8.0) g/dL Albumin 4.0 (3.5-5.0) g/dL Lipase 31 (8-78) U/L Urine Color Yellow Urine Appearance Clear Urine pH 5.5 (5.0-9.0) Ur Specific [place] 1.025 (1.005-1.025) Urine Protein Negative (Neg-Trace) mg/dL Urine Glucose (UA) >=1000 H (Negative) mg/dL Urine Ketones Trace (Negative) mg/dL Urine Blood Negative (Negative) Urine Nitrite Negative (Negative) Ur Leukocyte Esterase Negative (Negative) Urine RBC 0-2 (0-2) /HPF Urine WBC 0-5 (0-5) /HPF Ur Squamous Epith Cells 0-2 (0-2) /HPF Urine Bacteria None Seen (None Seen) Hyaline Casts 0-2 (0-2) /LPF Independent Interpretation I performed an independent interpretation of an: CT Scan (no diverticulitis) Radiology Impression Discussion of test interpretation with radiology: I have reviewed the radiologist's reading. Independent Historian Clinical information obtained from an independent historian. History obtained from or confirmed by: Spouse External Record Review External record reviewed: Inpatient record Medications Administered Discontinued Medications Generic Name Dose Route Start Last Admin Trade Name Freq PRN Reason Stop Dose Admin Hydromorphone HCl 1 mg 02/14/23 09:06 02/14/23 09:33 Hydromorphone Hcl 1 Mg/Ml Syringe IVPUSH 02/14/23 09:07 1 mg ONCE ONE Administration Protocol Hydromorphone HCl 1 mg 02/14/23 12:01 02/14/23 12:14 Hydromorphone Hcl 1 Mg/Ml Syringe IVPUSH 02/14/23 12:02 1 mg ONCE ONE Administration Protocol Sodium Chloride 1,000 mls @ 999 mls/hr 02/14/23 10:15 02/14/23 10:17 Ns IV 02/14/23 11:15 999 mls/hr .Q1H1M SHARIF Administration Piperacillin Sod/Tazobactam 50 mls @ 100 mls/hr 02/14/23 10:05 02/14/23 12:13 Sod 3.375 gm/ Sodium Chloride IV 02/14/23 10:34 Infused ONCE ONE Infusion Iohexol 100 ml 02/14/23 11:02 02/14/23 11:05 Iohexol 350 Mg/Ml 100 Ml Infus..Btl IV 02/14/23 11:03 85 ml ONCE ONE Administration Ondansetron HCl 4 mg 02/14/23 09:00 02/14/23 09:33 Ondansetron Hcl 4 Mg/2 Ml Vial IVPUSH 02/14/23 09:01 4 mg ONCE ONE Administration Critical Care Time Critical Care Time Critical Care Time: Yes Total Critical Care Time: 60 Attestation: medical consults, IVF, empiric treatments, IV dilaudid x 2 with improvement in pain I attest to this time spent taking care of the patient Discharge Plan Discharge Clinical Impression: Acidosis, lactic Abdominal pain Qualifiers: Abdominal location: generalized Qualified Code(s): R10.84 - Generalized abdominal pain Patient Disposition: Admitted as Observation Prescriptions: No Action sertraline 50 mg Tablet 50 mg PO DAILY gabapentin 300 mg Capsule 300 mg PO BID cyclobenzaprine 10 mg Tablet 20 mg PO BEDTIME amlodipine 10 mg tablet 1 tab PO DAILY Janumet 50-1,000 mg Tablet 1 tab PO BID Jardiance 10 mg Tablet 10 mg PO DAILY benazepril 10 mg tablet 2 tab PO DAILY 60 Days Qty: 120 1RF omeprazole 20 mg capsule,delayed release(DR/EC) 1 cap PO DAILY atorvastatin 20 mg tablet 20 mg PO DAILY aspirin [Adult Low Dose Aspirin] 81 mg tablet,delayed release (DR/EC) 81 mg PO DAILY
[2023-02-14] MEDS: ondansetron HCL 4 MG/2 ML VIAL IVPUSH ×2 (09:33→17:22)
[2023-02-14] MEDS: HYDROmorphone HCl 1 MG/ML SYRINGE IVPUSH ×2 (09:33→12:14)
[2023-02-14 09:35] LABS: MANUAL DIFF FLAG NO
--- NOTE | 2023-02-14 09:39 | PC.NURSE ---
pt a&o x4, pleasant, calm, and cooperative. 20G IV placed to LAC, labs drawn and sent. pt medicated per may. pt fiance at bedside. currently resting quietly on stretcher in no apparent distress. watching tv. rr even/unlabored. call lance within pt reach. plan of care ongoing.
[2023-02-14 09:45] LABS: Basophils Absolute Auto 0.1 X10*3/uL (0.0-0.2); Basophils Percent Auto 0.4 % (0-2); Eosinophils Absolute Auto 0.2 X10*3/uL (0.0-0.4); Hematocrit 51.4 % (42.0-52.0); Imm Gran Abs Auto 0.12 X10*3/uL (0.00-0.03); Imm Gran Pct Auto 0.8 % (0.0-0.4); Lymphocytes Absolute Auto 3.3 X10*3/uL (1.2-4.9); Lymphocytes Percent Auto 21.5 % (20-40); Mean Corpuscular HGB Conc 33.1 g/dl (31.0-36.0); Mean Corpuscular Hemoglobin 29.8 pg (27.0-33.0); Mean Platelet Volume 11.5 fL (9.4-12.4); Monocytes Percent Auto 6.4 % (2-11); Neutrophils Absolute Auto 10.8 x10*3/uL (2.0-8.3); Neutrophils Percent Auto 69.9 % (45-73); Platelet Count 286 X10*3/uL (160-400); Red Blood Count 5.71 X10*6/uL (4.60-5.80); Red Cell Distribution Width 14.7 % (11.0-16.0); White Blood Count 15.4 X10*3/uL (4.8-10.8)
[2023-02-14 10:06] LABS: Lactic Acid 3.3 mmol/L (0.5-2.0)
[2023-02-14 10:16] LABS: Alanine Aminotransferase 58 U/L (0-40); Alkaline Phosphatase 38 U/L (39-117); Anion Gap 16 (12-20); Aspartate Amino Transferase 32 U/L (5-37); Bilirubin Direct 0.2 mg/dL (0.0-0.5); Bilirubin Total 0.5 mg/dL (0.0-1.0); Blood Urea Nitrogen 11 mg/dL (9-16); Calcium 9.2 mg/dL (8.4-10.2); Carbon Dioxide 23 mmol/L (22-29); Chloride 104 mmol/L (96-108); Estimated Glomerular Filt Rate > 60; Glucose Random 115 mg/dL (60-115); Lipase 31 U/L (8-78); Magnesium 1.9 mg/dL (1.6-2.6); Potassium 4.2 mmol/L (3.3-5.1); Sodium 139 mmol/L (135-145); Total Protein 7.5 g/dL (6.5-8.0)
[2023-02-14] MEDS: 0.9 % Sodium Chloride 1,000 ML 999 ML IV (10:17)
[2023-02-14 10:26] LABS: Appearance Urine Clear; Color Urine Yellow; Glucose Urine UA >=1000 mg/dL (Negative); Leukocyte Esterase Urine Negative (Negative); Nitrite Urine Negative (Negative); PH 5.5 (5.0-9.0); Specific Gravity - Urine 1.025 (1.005-1.025); UMIC TRIGGER UACC YES; Urine Blood Negative (Negative); Urine Ketones Trace mg/dL (Negative); Urine Protein Negative (Neg-Trace)
--- NOTE | 2023-02-14 10:28 | PC.NURSE ---
pt in CT scan
[2023-02-14 10:29] LABS: Bacteria Urine None Seen (None Seen); Hyaline Casts Urine 0-2 /LPF (0-2); RBC Urine 0-2 /HPF (0-2); Squamous Epithelial Cell Urine 0-2 /HPF (0-2); WBC Urine 0-5 /HPF (0-5)
[2023-02-14] MEDS: Piperacillin Sodium/Tazobactam 3.375 GM in 0.9 % Sodium Chloride 50 ML IV (10:39)
--- NOTE | 2023-02-14 10:56 | PC.NURSE ---
blood cultures drawn and sent to lab. fluids running and pt medicated per may. pt reporting 8/10 abdominal pain. pt sts pain medication provided immediate relief but pain returned shortly after. MD ruiz.
[2023-02-14] MEDS: iohexoL 350 MG/ML 100 ML INFUS..BTL IV (11:05)
[2023-02-14 11:34] LABS: Reflex Lactate? Lactic Acid Added
--- NOTE | 2023-02-14 12:20 | PC.NURSE ---
assumed care of pt at 1100, pt reporting increased pain in right abd, medicated per MAR, NS running per MAR.
[2023-02-14 12:26] VITALS: BP 154/103; PULSE 85; RESP 18; O2SAT 98
[2023-02-14 13:34] LABS: ~Lactic Acid-LAB USE ONLY 1.6 mmol/L (0.5-2.0)
--- NOTE | 2023-02-14 13:44 | PM.IMHP ---
History of Present Illness Date of Service: 02/14/23 Attending physician on admission: Triston Munoz Chief Complaint: Intractable nausea, vomiting, abdominal pain Pt is a 52-year-old male with a PMH significant for?sigmoid diverticulitis with perforation abscess, s/p Ammy procedure with eventual reversal, HTN, HLD, [id number] diabetes type 2, and generalized anxiety disorder who presents to the ED with?intractable nausea, vomiting, diarrhea, and abdominal pain for the past 3 days. States it feels like someone is ?karate chopping and kicking me right in the stomach . Eating stimulates vomiting and diarrhea, but also occurs with no intake. Has not been able to eat or drink much of anything during this time. Also reports occasional bright red blood in stool. Some chills, but no measured fever. Of note, patient initially presented this morning to Dr. Echevarria's office for a follow-up appointment, who then sent him to the ED for further evaluation. Pt was seen by Dr. Sr in the ED who plans on performing an EGD this afternoon. In the ED pt was afebrile but tachycardic up to 102, hypertensive up to 169/111, and satting at 98% on RA. Labs were significant for chronic leukocytosis of 15.4, lactic acid 3.3 with repeat 1.6, ALT 58, alk-phos 38. H&H stable at 17 0.0/51.4. Electrolytes WNL. Creatinine WNL at 1.22. UA negative for UTI. CT?of abdomen pelvis found hepatic steatosis with no acute abnormalities. Incidental findings a stellate nodule of 4.9 mm in the anterior left lower lung with recommendation for formal chest CT. Pt was treated with ondansetron, hydromorphone, IVF, protonix, and Zosyn. Pt will be admitted to the hospital under observation for treatment and further evaluation of intractable nausea, vomiting, diarrhea, and abdominal pain. Review of Systems Review of Systems: Intractable n/v/d and abd pain x3 days Occasional small amount of BRBPR Chills, no fever Denies chest pain/pressure palpitations No Shortness of breath Denies hemoptysis [facility] Medical History Blurry vision Obesity Elevated blood pressure reading Hypertension, uncontrolled Renal insufficiency Sleep apnea Diabetes Lower GI bleed Diverticulosis Hematochezia Right ankle pain History of diverticulitis Mitral valve disease Anxiety GERD (gastroesophageal reflux disease) Constipation Hyperlipidemia Hypertension Family History Mother Diabetes mellitus Father Diabetes mellitus Surgical History History of colonoscopy History of mitral valve repair Status post Ammy procedure (10/21/19) H/O mitral valve repair Social History Household Members: Significant Other Housing: Apartment Are you a primary small animal caretaker to a significant other at home: No Do you presently have visiting nurse or other home services: No Unable to assess alcohol history related to: Unable to respond Alcohol intake: current Alcohol intake frequency: holidays/special occasions only Alcohol type: beer and hard liquor Patient Tobacco Use Status: Never used Tobacco Smoked in Last 30 Days: No Second Hand Smoke Exposure: No Use of substances other than those prescribed or required for medical reasons: No Substance Use Type: Marijuana Substance Use Type Other:: smoking Are you DNR?: No Advance Directives: Yes Advance Directives on File: Yes Advance Directives Date on File: 02/22/20 Nutrition Risks: No Nutritional Risk service: No Current occupational status: unemployed Meds Allergies Allergy/AdvReac Type Severity Reaction Status Date / Time morphine [MORPHINE] Allergy Unknown HIVES, rash Verified 02/14/23 08:50 Home Medications Medication Instructions Recorded Confirmed Last Taken Type aspirin 81 mg tablet,delayed 81 mg PO DAILY 12/28/19 02/14/23 01/25/22 History release (Adult Low Dose Aspirin) atorvastatin 20 mg tablet 20 mg PO DAILY 12/28/19 02/14/23 01/25/22 History gabapentin 300 mg capsule 600 mg PO BEDTIME 01/07/20 02/14/23 01/25/22 History sertraline 50 mg tablet 50 mg PO DAILY 02/16/20 02/14/23 01/25/22 History amlodipine 10 mg tablet 1 tab PO DAILY 01/25/22 02/14/23 01/25/22 History cyclobenzaprine 10 mg tablet 20 mg PO BEDTIME 01/25/22 02/14/23 01/24/22 History empagliflozin 10 mg tablet 10 mg PO DAILY 01/25/22 02/14/23 01/25/22 History (Jardiance) sitagliptin phosphate 50 1 tab PO BID 01/25/22 02/14/23 01/25/22 History mg-metformin 1,000 mg tablet (Janumet) melatonin 10 mg tablet 20 mg PO BEDTIME 02/14/23 02/14/23 Unknown History Physical Exam Vital Signs and Narrative: Vital Signs: Last Vital Signs Temp 98.2 F 02/14/23 08:47 Pulse 85 02/14/23 12:26 Resp 18 02/14/23 12:26 BP 154/103 H 02/14/23 12:26 Pulse Ox 98 02/14/23 12:26 O2 Del Method Room Air 02/14/23 12:26 BMI result Body Mass Index 33.7 Constitutional: Alert, in no acute distress. Mental Status: Oriented to person, place and time. Eyes: Pupils are equal, round, and reactive to light. Ear, Nose, and Throat: Oropharynx clear, mucous membranes moist. Ears and nose without deformities. Trachea midline. Respiratory: Clear to auscultation bilaterally. No wheezing, rales, or rhonchi. Cardiovascular: S1, S2 regular. No murmurs, rubs, or gallops. Gastrointestinal: Abdomen soft,non-distended, diffusely tender but especially in upper right quadrant. Hypoactive bowel sounds. Neurologic: Cranial nerves II-XII are grossly intact bilaterally. No focal neurological deficits. Moves all extremities spontaneously. Skin: Warm, dry. Musculoskeletal: No cyanosis or clubbing. Extremities: No edema. Psychiatric: Normal mood and affect. Results Labs 02/15/23 05:57 02/15/23 05:57 Labs: Laboratory Results - last 24 hr 02/14/23 02/14/23 02/14/23 09:30 10:13 12:26 MCV 90.0 MCH 29.8 MCHC 33.1 RDW 14.7 Plt Count 286 MPV 11.5 Immature Gran % (Auto) 0.8 H Neut % (Auto) 69.9 Lymph % (Auto) 21.5 [place] % (Auto) 6.4 Eos % (Auto) 1.0 Baso % (Auto) 0.4 Lymph # (Auto) 3.3 [place] # (Auto) 1.0 Eos # (Auto) 0.2 Baso # (Auto) 0.1 Abs Immat Gran (auto) 0.12 H Absolute Neuts (auto) 10.8 H Absolute Nucleated RBC 0.000 Nucleated RBC % (auto) 0.0 Anion Gap 16 Estim Creat Clear Calc 78.0 Estimated GFR > 60 Random Glucose 115 Lactic Acid 3.3 H* Lactic Acid F/U @ 2Hr 1.6 Calcium 9.2 D Magnesium 1.9 Total Bilirubin 0.5 Direct Bilirubin 0.2 AST 32 ALT 58 H Alkaline Phosphatase 38 L Total Protein 7.5 Albumin 4.0 Lipase 31 Urine Color Yellow Urine Appearance Clear Urine pH 5.5 Ur Specific [place] 1.025 Urine Protein Negative Urine Glucose (UA) >=1000 H Urine Ketones Trace Urine Blood Negative Urine Nitrite Negative Ur Leukocyte Esterase Negative Urine RBC 0-2 Urine WBC 0-5 Ur Squamous Epith Cells 0-2 Urine Bacteria None Seen Hyaline Casts 0-2 Imaging Radiologist's Impressions: Impressions Abdomen/Pelvis CT 02/14/23 10:40 IMPRESSION: 1. Hepatic steatosis. No acute abnormalities. 2. There is a stellate nodule at 4.9 mm in the anterior left lower lung. Recommend formal chest CT. Fleischner guidelines were followed. Assessment and Plan (1) Acute generalized abdominal pain: Status: Acute Plan t is a 52-year-old male with a PMH significant for?sigmoid diverticulitis with perforation abscess, s/p Ammy procedure with eventual reversal, HTN, HLD, [id number] diabetes type 2, and generalized anxiety disorder who presents to the ED with?intractable nausea, vomiting, diarrhea, and abdominal pain for the past 3 days. Pt will be admitted to the hospital under observation for treatment and further evaluation of intractable nausea, vomiting, diarrhea, and abdominal pain. Intractable N/V/D and abd pain CT of abd/pelvis negative for acute abnormalities No evidence of active infection at this time, no sepsis Leukocytosis chronic, at baseline; tachycardia and lactic acidosis secondary to dehydration Will hold on abx for now pending EGD results Ondansetron for nausea Analgesics for pain management Continue PPI GI consult NPO for now pending EGD, clear liquid after procedure, advance as tolerated Lactic acidosis, resolved Lactic acid 3.3 at time of admission, repeat 1.6 after fluid Likely secondary to dehydration HTN Continue benazepril, amlodipine HLD Continue statin Abnormal CT finding CT of abdomen pelvis found a stellate nodule of 4.9 mm in the anterior left lower lung Patient should follow up with PCP outpatient for formal chest CT [id number] diabetes type [address] on SSI Diabetic diet once diet advanced Mood disorder Continue home meds Full Code Attending:?Dr. Munoz DVT Prophylaxis: Pneumatic boots d/t impending EGD, report of hematochezia Pt will be admitted to the hospital under observation for treatment and further evaluation of intractable nausea, vomiting, diarrhea, and abdominal pain. Quality Stroke Does the patient have a stroke diagnosis?: No VTE Prior VTE?: No VTE Risk Level:: Medical - moderate - high VTE Device Contraindication: N/A - Device Ordered VTE Drug Contraindication: Treatment Not Indicated
[2023-02-14] MEDS: Pantoprazole Sodium 40 MG/10 ML VIAL IVPUSH (14:05)
--- NOTE | 2023-02-14 14:48 | PM.GICN ---
History of Present Illness Data of Consult Service Date: 02/14/23 Requesting physician: Vamshi Watkins Primary Care Provider: Daniel Cisneros MD HPI Reason for consult: Intractable N/V/D, abd pain, complicated GI hx 52-year-old male hx of sigmoid diverticulitis with perforation abscess, s/p Ammy procedure with eventual reversal in 12/2019, HTN, HLD, [id number] diabetes type 2, mitral valve repair, and generalized anxiety disorder seen at [facility] ED today with periumblical and left sided abdominal pain?with nausea and vomiting for the past 3 days Pt describes the abdominal pain as constant, 10/10 in intesity and pt feels he is being kicked . Feels like he is in labour Pain is better after he has a BM and passes gas and then comes right back Pt had no BM x 3 days followed by diarrhea Patient also complains heartburn and burning sensation in the throat takes omeprazole 20 mg daily. He complains rectal bleeding with blood on the toilet paper. 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 He is and has 3 children. Family history is positive for history of colon polyps in his mom. In the ED pt was afebrile but tachycardic up to 102, hypertensive up to 169/111, satting at 98% on RA. Labs showed chronic leukocytosis 15.4, lactic acid 3.3 with repeat 1.6, ALT 58, alk-phos 38, Pt was treated with ondansetron, hydromorphone, IVF, protonix, and Zosyn. Pt was admitted to [facility] for further evaluation. 02/14/[address] SCAN SHOWED: 1. Hepatic steatosis. No acute abnormalities. 2. There is a stellate nodule at 4.9 mm in the anterior left lower lung. Recommend formal chest CT. PAST GI HISTORY BY REVIEW OF MEDICAL RECORDS: Pt was hospitalized in 11/2020 with rectal bleeding. Inpatient colonoscopy was planned and pt was unable to tolerate the prep due to persistent nausea. 12/2020 EGD WAS PERFORMED BY DR MILIAN: Esophagus: GE junction at 38 cm, diaphragm hiatus at 40 cm, LA grade A esophagitis noted Stomach: Patchy gastric erythema with erosions at antrum. Biopsies were negative for Helicobacter pylori. Grade 2 flap valve on retroflexed examination of the cardia. Duodenum: Patchy erythema in bulb and second part of duodenum, bx taken Impression/Findings: duodenitis, appears to be peptic in origin erosive gastritis esophagitis PLAN: confirm PPI compliance- if taking then increase dose, otherwise change to another formulation per med list on aspirin, will check if on any other NSAIDs needs to rebook colonsocopy and be compliant with prep next time Same-day colonoscopy was scheduled and canceled since patient did not take his prep. Colonoscopy rescheduled in May, 2021 and cancelled Review of Systems Review of Systems: Constitutional : No Weight loss, No Fever, pos Chills ENT/Mouth : No sore throat, No Rhinorrhea Eyes: No Swelling, No Redness Cardiovascular : No Chest Pain, No SOB, NoEdema Respiratory : No Cough, No Sputum, No Wheezing Gastrointestinal : Positive Nausea, Positive Vomiting, positive Diarrhea, positive abdominal Pain, No Hematochezia, No Melena Genitourinary : No Dysuria, No Urinary Frequency, No Hematuria, No Urgency Musculoskeletal : No joint pain, No Myalgias, No Joint Swelling Skin : No Skin Lesions, No rash Neuro : No Weakness, No Numbness, No Dizziness, No Headache Psych : No Anxiety/Panic, No Depression Heme/Lymph: No Bruising, No Lymphadenopathy Endocrine : No Polyuria, No Polydipsia All other systems reviewed and are negative. [facility] Past Medical History Medical History Blurry vision Obesity Elevated blood pressure reading Hypertension, uncontrolled Renal insufficiency Sleep apnea Diabetes Lower GI bleed Diverticulosis Hematochezia Right ankle pain History of diverticulitis Mitral valve disease Anxiety GERD (gastroesophageal reflux disease) Constipation Hyperlipidemia Hypertension Family History Family History Mother Diabetes mellitus Father Diabetes mellitus Surgical History Surgical History History of colonoscopy History of mitral valve repair Status post Ammy procedure (10/21/19) H/O mitral valve repair Social History Household Members: Significant Other Housing: Apartment Are you a primary pet care attendant to a significant other at home: No Do you presently have visiting nurse or other home services: No Unable to assess alcohol history related to: Unable to respond Alcohol intake: current Alcohol intake frequency: holidays/special occasions only Alcohol type: beer and hard liquor Patient Tobacco Use Status: Never used Tobacco Second Hand Smoke Exposure: No Substance Use Type: Marijuana Advance Directives Date on File: 02/22/20 service: No Current occupational status: unemployed Meds Allergies Allergy/AdvReac Type Severity Reaction Status Date / Time morphine [MORPHINE] Allergy Unknown HIVES, rash Verified 02/14/23 08:50 Active Medications: Current Medications Acetaminophen (Acetaminophen 325 Mg Tablet) 650 mg PO Q6H PRN PRN Reason: Pain, Mild (Pain Scale 1-3) Melatonin (Melatonin 3 Mg Tablet) 6 mg PO BEDTIME PRN PRN Reason: Insomnia Ondansetron HCl (Ondansetron Hcl 4 Mg/2 Ml Vial) 4 mg IVPUSH Q8H PRN PRN Reason: Nausea and Vomiting Sodium Chloride (0.9 % Sodium Chloride Flush 3 Ml Syringe) 3 ml [facility] Home Medications Medication Instructions Recorded Confirmed Last Taken Type aspirin 81 mg tablet,delayed 81 mg PO DAILY 12/28/19 02/14/23 01/25/22 History release (Adult Low Dose Aspirin) atorvastatin 20 mg tablet 20 mg PO DAILY 12/28/19 02/14/23 01/25/22 History gabapentin 300 mg capsule 600 mg PO BEDTIME 01/07/20 02/14/23 01/25/22 History sertraline 50 mg tablet 50 mg PO DAILY 02/16/20 02/14/23 01/25/22 History amlodipine 10 mg tablet 1 tab PO DAILY 01/25/22 02/14/23 01/25/22 History cyclobenzaprine 10 mg tablet 20 mg PO BEDTIME 01/25/22 02/14/23 01/24/22 History empagliflozin 10 mg tablet 10 mg PO DAILY 01/25/22 02/14/23 01/25/22 History (Jardiance) sitagliptin phosphate 50 1 tab PO BID 01/25/22 02/14/23 01/25/22 History mg-metformin 1,000 mg tablet (Janumet) melatonin 10 mg tablet 20 mg PO BEDTIME 02/14/23 02/14/23 Unknown History Physical Exam Vital Signs: Vital Signs: Last Vital Signs Temp 98.2 F 02/14/23 08:47 Pulse 85 02/14/23 12:26 Resp 18 02/14/23 12:26 BP 154/103 H 02/14/23 12:26 Pulse Ox 98 02/14/23 12:26 O2 Del Method Room Air 02/14/23 12:26 BMI result Body Mass Index 33.7 Const: General: no acute distress Nutritional Appearance: obese Orientation/consciousness: patient oriented x3 Limitations: no limitations HEENT: Head: Yes normocephalic and Yes atraumatic Ears: hearing grossly normal bilaterally Resp: Effort & Inspection: normal respiratory effort, no audible wheezes, no cough and no respiratory distress GI: Other: Soft, obese, epigastric and LUQ tenderness, with no rebound, no guarding, no rigidity. Well-healed midline incision and left lower quadrant incision without hernia. Percussion: Yes normal to percussion Auscultation: normal bowel sounds Rectal Exam - Male: Yes deferred Skin: General skin exam: no rashes or lesions noted Neuro: General: patient oriented x3 Extrem: General: Yes no clubbing, cyanosis or edema Results Labs 02/15/23 05:57 02/15/23 05:57 Labs: Short CBC 02/14/23 Range/Units 09:30 WBC 15.4 H (4.8-10.8) X10*3/uL Hgb 17.0 (14.0-18.0) g/dl Hct 51.4 (42.0-52.0) % Plt Count 286 (160-400) X10*3/uL BMP 02/14/23 09:30 Sodium 139 Potassium 4.2 Chloride 104 Carbon Dioxide 23 BUN 11 Creatinine 1.22 Calcium 9.2 D Liver Function 02/14/23 Range/Units 09:30 Total Bilirubin 0.5 (0.0-1.0) mg/dL Direct Bilirubin 0.2 (0.0-0.5) mg/dL AST 32 (5-37) U/L ALT 58 H (0-40) U/L Alkaline Phosphatase 38 L (39-117) U/L Albumin 4.0 (3.5-5.0) g/dL Urine 02/14/23 Range/Units 10:13 Urine Color Yellow Urine Appearance Clear Urine pH 5.5 (5.0-9.0) Ur Specific Jameson 1.025 (1.005-1.025) Urine Protein Negative (Neg-Trace) mg/dL Urine Glucose (UA) >=1000 H (Negative) mg/dL Assessment and Plan (1) Acute generalized abdominal pain: Status: Resolved Plan 52-year-old male hx of sigmoid diverticulitis with perforation abscess, s/p Ammy procedure with eventual reversal in 12/2019, HTN, HLD, [id number] diabetes type 2, mitral valve repair, and generalized anxiety disorder seen at [facility] ED today with periumblical and left sided abdominal pain?with nausea and vomiting for the past [address] scan showed hepatic steatosis and subtle mucosal changes in the distal stomach and duodenum. Abdominal pain, nausea and vomiting likely related to PUD, gastritis or duodenitis. RECOMMENDATIONS: 1. Agree with IV antiemetics, pain medications and PPI infusion. 2. Clear liquid diet tonight 3. Proceed with EGD - scheduled on 02/15/23 at 9:30 am Procedures Date of Service Date of Service: 02/26/23
--- NOTE | 2023-02-14 15:06 | PC.NURSE ---
RN_RN report given to SSS, pt transported by surgical team.
[2023-02-14] MEDS: HYDROmorphone HCl 0.5 MG/0.5 ML SYRINGE IVPUSH ×2 (17:22→20:22)
[2023-02-14] MEDS: 0.9 % Sodium Chloride Flush 3 ML SYRINGE IVFLUSH ×2 (17:24→21:05)
[2023-02-14 17:44] LABS: Glucose, Whole Blood 99 mg/dL (60-115)
[2023-02-14 19:49] VITALS: BP 160/113; PULSE 91; RESP 18; TEMP 36.9; O2SAT 97
--- NOTE | 2023-02-14 19:59 | PC.NURSE ---
Rn_Rn report given by supercharge repair supervisor, transported to overflow.
[2023-02-14 20:46] VITALS: BP 151/110; PULSE 87; RESP 16; TEMP 36.3; O2SAT 97
[2023-02-14] MEDS: Prochlorperazine Edisylate 10 MG/2 ML VIAL IVPUSH (21:05)
--- NOTE | 2023-02-14 21:28 | PHA.MEDREC ---
Pharmacy Consult ? Medication Reconciliation Pharmacy has completed the medication reconciliation. Patient reported medications. Hellen Elaine, EarlD
[2023-02-14] MEDS: Melatonin 3 MG TABLET 6 MG PO (22:30)
[2023-02-14] MEDS: Gabapentin 300 MG CAPSULE 600 MG PO (22:30)
[2023-02-14] MEDS: Cyclobenzaprine HCl 10 MG TABLET 20 MG PO (22:30)
[2023-02-15] VITALS (13 sets, daily range): BP systolic 115–152; BP diastolic 79–106; PULSE 79–111; RESP 15–20; TEMP 36.1–36.7; O2SAT 94–98
[2023-02-15] MEDS: HYDROmorphone HCl 1 MG/ML SYRINGE 0.75 MG IVPUSH (02:56)
[2023-02-15 06:34] LABS: Hemoglobin 16.8 g/dl (14.0-18.0); Mean Corpuscular HGB Conc 33.6 g/dl (31.0-36.0); Mean Corpuscular Hemoglobin 30.2 pg (27.0-33.0); Mean Corpuscular Volume 89.9 fL (80.0-98.0); Mean Platelet Volume 11.3 fL (9.4-12.4); Platelet Count 272 X10*3/uL (160-400); Red Blood Count 5.56 X10*6/uL (4.60-5.80); Red Cell Distribution Width 14.5 % (11.0-16.0)
[2023-02-15 06:53] LABS: Anion Gap 11 (12-20); Blood Urea Nitrogen 10 mg/dL (9-16); Calcium 8.8 mg/dL (8.4-10.2); Carbon Dioxide 28 mmol/L (22-29); Chloride 103 mmol/L (96-108); Creatinine Clr Calc Pharmacy 73.8; Estimated Glomerular Filt Rate 59; Glucose Random 110 mg/dL (60-115); Sodium 138 mmol/L (135-145)
[2023-02-15 07:26] LABS: Glucose, Whole Blood 111 mg/dL (60-115)
[2023-02-15 07:26] LABS: Glucose, Whole Blood 108 mg/dL (60-115)
[2023-02-15] MEDS: amLODIPine Besylate 10 MG TABLET PO (08:53)
[2023-02-15] MEDS: 0.9 % Sodium Chloride Flush 3 ML SYRINGE IVFLUSH (08:53)
--- NOTE | 2023-02-15 10:15 | P.OP_ITS ---
Operative Note Operative Note Date of Service: 02/15/23 Narrative: FLEXIBLE TRANSORAL UPPER GASTROINTESTINAL ENDOSCOPY WITH BIOPSIES Pre-op diagnosis: Abdominal pain, nausea and vomiting Post-op diagnosis: Gastric ulcer, gastritis, duodenitis Endoscopist:? Sabrina Sr MD Anesthesia:?MAC Consent: Indications for the procedure and potential complications of bleeding, perforation, reaction to medications and missed diagnosis were discussed with the patient and informed consent was obtained. Instrument: Olympus GIF H 190 mid size upper endoscope Monitoring: Vital signs and clinical assessment, continuous EKG monitoring, Pulse oximetry, Carbon Dioxide monitoring and blood pressure monitoring were done throughout the procedure. Procedure: The patient was placed in the left lateral decubitis position and pre-procedure medications were administered and a bite block was placed. The endoscope was inserted into the mouth and advanced under direct vision to the third part of duodenum. A careful inspection was made as the upper endoscope was withdrawn including a retroflexed examination of the proximal stomach; Findings and interventions are described below. Findings: Larynx: Normal Esophagus: GE junction at 40 cms. No esophagitis or Garcia's. Stomach: Edematous folds in the pre-pyloric area with a 1 cms superficial non- bleeding ulcer - biopsied. Mild gastric erythema. Biopsies were obtained. Grade 2 flap valve on retroflexed examination of the cardia. Duodenum: Patchy erythema in the bulb and normal descending duodenum Intervention: Biopsies as noted above Impression and Post Procedure Diagnosis: Endoscopy Findings: STOMACH: Edematous folds in the pre-pyloric area with a 1 cms superficial non- bleeding ulcer - biopsied. DUODENUM: Duodenitis in the bulb Plan: Await pathology results Patient will be scheduled for a colonoscopy as an outpatient and a FU in the GI Clinic with Sabrina Sr M.D. Above findings were reviewed with the patient. Pt has had difficulty with drinking the colon prep in the past due to nausea and vomiting. He thinks he may be able to tolerate it if he drinks pickle juice while prepping BIOPSIES SHOWED: A. Gastric ulcer, biopsy: Gastric antral mucosa with minimal chronic active inflammation and probable erosion; negative for H pylori, intestinal metaplasia and dysplasia. B. Gastric antrum, biopsy: Gastric antral mucosa with mild reactive changes and minimal chronic inactive gastritis; negative for H pylori, intestinal metaplasia and dysplasia
--- NOTE | 2023-02-15 12:40 | P.DS_ITS ---
DS: Providers Provider Date of Service: 02/15/23 Date of admission: 02/14/23 20:00 Primary care physician: Daniel Cisneros MD Consults: 02/14/23 14:42 Consult to Gastroenterology Routine Consulting Provider: Sabrina Sr Reason for consultation: Intractable N/V/D, abd pain, complicated GI hx DS: Diagnosis Discharge Diagnosis (1) Acute generalized abdominal pain: Status: Acute (2) Gastric ulcer: Status: Acute (3) Gastritis and duodenitis: Status: Acute DS: Summary Hospital Course Hospital Course: Admission note HPI Pt is a 52-year-old male with a PMH significant for?sigmoid diverticulitis with perforation abscess, s/p Ammy procedure with eventual reversal, HTN, HLD, [id number] diabetes type 2, and generalized anxiety disorder who presents to the ED with?intractable nausea, vomiting, diarrhea, and abdominal pain for the past 3 days. States it feels like someone is ?karate chopping and kicking me right in the stomach . Eating stimulates vomiting and diarrhea, but also occurs with no intake. Has not been able to eat or drink much of anything during this time. Also reports occasional bright red blood in stool. Some chills, but no measured fever. Of note, patient initially presented this morning to Dr. Echevarria's office for a follow-up appointment, who then sent him to the ED for further evaluation. Pt was seen by Dr. Sr in the ED who plans on performing an EGD this afternoon. In the ED pt was afebrile but tachycardic up to 102, hypertensive up to 169/111, and satting at 98% on RA. Labs were significant for chronic leukocytosis of 15.4, lactic acid 3.3 with repeat 1.6, ALT 58, alk-phos 38. H&H stable at 17 0.0/51.4. Electrolytes WNL. Creatinine WNL at 1.22. UA negative for UTI. CT?of abdomen pelvis found hepatic steatosis with no acute abnormalities. Incidental findings a stellate nodule of 4.9 mm in the anterior left lower lung with recommendation for formal chest CT. Pt was treated with ondansetron, hydromorphone, IVF, protonix, and Zosyn. Pt will be admitted to the hospital under observation for treatment and further evaluation of intractable nausea, vomiting, diarrhea, and abdominal pain. Hospital course The patient was admitted for Intractable nausea and vomiting with abdominal pain as CT of abd/pelvis negative for acute abnormalities. Leukocytosis chronic and being evaluated by [facility] hematology. Ondansetron for nausea and PPI for abd pain with good response as his symptoms improved. Seen by GI who did an EGD showing evidence of small gastric ulcer, gastritis and duodenitis with GI recommendations to treat with PPI and follow as outpatient for colonoscopy. the patient was able to tolerate lunch and asked to be discharged home after tolerating it rather than staying for monitoring overnight as GI recommended. Plan Omeprazole 20 mg twice daily follow up with PCP outpatient for formal chest CT for a small nodule noticed on images Follow with dr Sr office for arrangements for Colonoscopy Time Attestation Discharge coordination time: Greater than 30 minutes Quality: Safe Use of Opioids Does Pt have an Active Cancer Diagnosis on the Problem List?: No Quality: Stroke Does the patient have a stroke diagnosis?: No Physical Exam Vital Signs: Vital Signs: Last Vital Signs Temp 98.1 F 02/15/23 11:55 Pulse 94 02/15/23 11:55 Resp 16 02/15/23 11:55 BP 131/86 02/15/23 11:55 Pulse Ox 97 02/15/23 11:55 O2 Del Method Room Air 02/15/23 11:55 BMI result Body Mass Index 33.7 Const: Other: Constitutional : Awake, interactive, not in distress Neck : Normal inspection, Supple Cardiovascular : RRR, no JVP, no lower extremity edema Respiratory : good bilateral air entry, no crackles, wheezes or rhonchi Gastrointestinal: soft, lax, Normal bowel sounds, Non tender Skin : Warm, Dry Neurological : Alert & oriented x3, No focal deficit DS: Data Data Completed and Pending Completed studies during hospitalization [Text1]: Procedures Drainage of Peritoneal Cavity, Percutaneous Approach (02/15/20) Reposition Sigmoid Colon, Open Approach (01/18/20) Pending studies at discharge: Pending at discharge 02/15/23 10:33 Surgical [PTH] Routine Labs on day of discharge: Laboratory Results - last 24 hr 02/14/23 02/14/23 02/14/23 12:26 17:40 20:13 WBC RBC Hgb Hct MCV MCH MCHC RDW Plt Count MPV Absolute Nucleated RBC Nucleated RBC % (auto) Sodium Potassium Chloride Carbon Dioxide Anion Gap BUN Creatinine Estim Creat Clear Calc Estimated GFR POC Glucose 99 108 Random Glucose Lactic Acid F/U @ 2Hr 1.6 Calcium 02/15/23 02/15/23 05:57 07:21 WBC 13.0 H RBC 5.56 Hgb 16.8 Hct 50.0 MCV 89.9 MCH 30.2 MCHC 33.6 RDW 14.5 Plt Count 272 MPV 11.3 Absolute Nucleated RBC 0.000 Nucleated RBC % (auto) 0.0 Sodium 138 Potassium 4.0 Chloride 103 Carbon Dioxide 28 Anion Gap 11 L BUN 10 Creatinine 1.29 Estim Creat Clear Calc 73.8 Estimated GFR 59 POC Glucose 111 Random Glucose 110 Lactic Acid F/U @ 2Hr Calcium 8.8 Preliminary micro results at discharge 02/14/23 10:20 Blood Culture - Preliminary Blood - Venous No growth after 24 hours. 02/14/23 10:13 Blood Culture - Preliminary Blood - Venous No growth after [address] scan - abdomen: Radiologist's impression: ITS Impressions Abdomen/Pelvis CT 02/14/23 10:40 IMPRESSION: 1. Hepatic steatosis. No acute abnormalities. 2. There is a stellate nodule at 4.9 mm in the anterior left lower lung. Recommend formal chest CT. Fleischner guidelines were followed. Discharge Plan Discharge Anticipated Discharge Date/Time: 02/15/23 12:20 Patient Disposition: Home, Self-Care Discharge Diagnosis: Gastritis , Gastric ulcer Referrals: Daniel Cisneros MD [Primary Care Provider] - 1 Week Discharge Medications: Continued sertraline 50 mg Tablet 50 mg PO DAILY gabapentin 300 mg Capsule 600 mg PO BEDTIME cyclobenzaprine 10 mg Tablet 20 mg PO BEDTIME amlodipine 10 mg tablet 1 tab PO DAILY Janumet 50-1,000 mg Tablet 1 tab PO BID Jardiance 10 mg Tablet 10 mg PO DAILY benazepril 10 mg tablet 2 tab PO DAILY 60 Days Qty: 120 1RF melatonin 10 mg Tablet 20 mg PO BEDTIME atorvastatin 20 mg tablet 20 mg PO DAILY aspirin [Adult Low Dose Aspirin] 81 mg tablet,delayed release (DR/EC) 81 mg PO DAILY Changed omeprazole 20 mg capsule,delayed release(DR/EC) 1 cap PO BID Qty: 60 0RF Diet: Advance to usual diet Activity on Discharge: As tolerated Stand Alone Forms: Patient Portal Discharge page Care Plan Goals: Read below Health Concerns: Read below Plan of Treatment: Read below Assessment: You were admitted for evaluation of abdominal pain. evaluated by GI dr Sr who did an upper endoscopy showing evidence of small gastric ulcer, gastritis and duodenitis. recommended treatment with Omeprazole and follow up as outpatient for colonoscopy. Omeprazole 20 mg twice daily follow up with PCP outpatient for formal chest CT for a small nodule noticed on images Follow with dr Sr office for arrangements for Colonoscopy
--- NOTE | 2023-02-16 08:19 | MHC.CM.PN ---
Patient d/c'd home before being seen by case management.
== END 2023-02-15 13:57 | disposition home or self-care (01) ==
LOC: HO.ED 13:06 → HO.SSS 13:48 → HO.ED 18:22 → HO.EDOVER 20:10
PROVIDERS: Internal Medicine Gastroenterology; Admitting Provider Student in an Organized Health Care Education/Training Program; Emergency Provider Emergency Medicine; PCP Internal Medicine; Visit Provider Student in an Organized Health Care Education/Training Program
PROC: 0DJ08ZZ Inspection of Upper Intestinal Tract, Via Natural or Artificial Opening Endoscopic (ICD-10-PCS; CPT 43235; principal; 2023-02-15 09:30)
DX: K25.9 Gastric ulcer, unspecified as acute or chronic, without hemorrhage or perforation (principal); K29.70 Gastritis, unspecified, without bleeding; K29.90 Gastroduodenitis, unspecified, without bleeding; K76.0 Fatty (change of) liver, not elsewhere classified; K29.80 Duodenitis without bleeding; R00.0 Tachycardia, unspecified; R10.32 Left lower quadrant pain; R10.12 Left upper quadrant pain; R11.2 Nausea with vomiting, unspecified; E11.9 Type 2 diabetes mellitus without complications; I10 Essential (primary) hypertension; E78.5 Hyperlipidemia, unspecified; K21.9 Gastro-esophageal reflux disease without esophagitis; R19.7 Diarrhea, unspecified; D72.829 Elevated white blood cell count, unspecified; Z79.899 Other long term (current) drug therapy
CPT/HCPCS: 43239; 36415; 74177; 80048; 80076; 81001; 82947; 83605; 83690; 83735; 85025; 85027; 87040; 88305; 88342; 96361; 96365; 96366; 96375; 96376; 99212; 99221; 99285; C1726; C9113; J0737; J1100; J1170; J2250; J2405; J2543; J2704; J2765; Q9967

== ENCOUNTER → 2023-02-14 20:00 | Outpatient (BNV) | payer OTHER, SELFPAY | PROVIDERS: Admitting Provider Student in an Organized Health Care Education/Training Program; Emergency Provider Emergency Medicine; PCP Internal Medicine; Visit Provider Internal Medicine Gastroenterology | DX: R10.84 Generalized abdominal pain (principal); K29.91 Gastroduodenitis, unspecified, with bleeding; K25.9 Gastric ulcer, unspecified as acute or chronic, without hemorrhage or perforation | CPT/HCPCS: 43239; 99222 ==

== ENCOUNTER → 2023-02-14 20:00 | Outpatient (BNV) | payer OTHER, SELFPAY | PROVIDERS: Admitting Provider Student in an Organized Health Care Education/Training Program; Emergency Provider Emergency Medicine; PCP Internal Medicine; Visit Provider Student in an Organized Health Care Education/Training Program | DX: R10.84 Generalized abdominal pain (principal); K25.9 Gastric ulcer, unspecified as acute or chronic, without hemorrhage or perforation; K29.90 Gastroduodenitis, unspecified, without bleeding | CPT/HCPCS: 99222; 99239 ==

== ENCOUNTER 2023-02-28 12:56 | Emergency (ER) | payer OTHER, SELFPAY ==
--- NOTE | ~2023-02-28 | XR_ITS ---
EXAMINATION: XR CHEST CLINICAL INFORMATION: Right-sided chest pain COMPARISON: 10/10/2020 TECHNIQUE: 2 views of the chest were obtained. FINDINGS: Sternotomy and mitral valve replacement changes are again evident. The lungs are clear. There are no pleural effusions. The cardiomediastinal silhouette is stable. No rib fracture or pneumothorax is evident. XR/XR chest 2V IMPRESSION: No acute disease or interval change.
[2023-02-28 13:32] VITALS: BP 140/87; PULSE 97; RESP 18; TEMP 36.3; O2SAT 97; BMI 35.3
--- NOTE | 2023-02-28 13:34 | ED.GENADULT ---
HPI - General Adult General Chief complaint: Abdominal Pain Stated complaint: severe abd pain Related Data Home Medications Medication Instructions Recorded Confirmed aspirin 81 mg tablet,delayed 81 mg PO DAILY 12/28/19 02/14/23 release (Adult Low Dose Aspirin) atorvastatin 20 mg tablet 20 mg PO DAILY 12/28/19 02/14/23 gabapentin 300 mg capsule 600 mg PO BEDTIME 01/07/20 02/14/23 sertraline 50 mg tablet 50 mg PO DAILY 02/16/20 02/14/23 amlodipine 10 mg tablet 1 tab PO DAILY 01/25/22 02/14/23 cyclobenzaprine 10 mg tablet 20 mg PO BEDTIME 01/25/22 02/14/23 empagliflozin 10 mg tablet 10 mg PO DAILY 01/25/22 02/14/23 (Jardiance) sitagliptin phosphate 50 1 tab PO BID 01/25/22 02/14/23 mg-metformin 1,000 mg tablet (Janumet) melatonin 10 mg tablet 20 mg PO BEDTIME 02/14/23 02/14/23 Previous Rx's Medication Instructions Recorded benazepril 10 mg tablet 2 tab PO DAILY 60 days #120 tabs 01/28/22 omeprazole 20 mg capsule,delayed 1 cap PO BID #60 caps 02/15/23 release Allergies Allergy/AdvReac Type Severity Reaction Status Date / Time morphine [MORPHINE] Allergy Unknown HIVES, rash Verified 02/28/23 13:32 [facility] Past Medical History Medical History Blurry vision Obesity Elevated blood pressure reading Hypertension, uncontrolled Renal insufficiency Sleep apnea Diabetes Lower GI bleed Diverticulosis Hematochezia Right ankle pain History of diverticulitis Mitral valve disease Anxiety GERD (gastroesophageal reflux disease) Constipation Hyperlipidemia Hypertension Surgical History History of colonoscopy History of mitral valve repair Status post Ammy procedure (10/21/19) H/O mitral valve repair Family History Family History Mother Diabetes mellitus Father Diabetes mellitus Social History Social History Household Members: Significant Other Housing: Apartment Are you a primary hemodialysis patient care specialist to a significant other at home: No Do you presently have visiting nurse or other home services: No Unable to assess alcohol history related to: Unable to respond Alcohol intake: current Alcohol intake frequency: holidays/special occasions only Alcohol type: beer and hard liquor Comment: PT SLEEPING Patient Tobacco Use Status: Never used Tobacco Second Hand Smoke Exposure: No Substance Use Type: Marijuana Advance Directives: Yes Advance Directives on File: Yes Advance Directives Date on File: 02/22/20 service: No Current occupational status: unemployed Physical Exam ED Vital Signs: Vital Signs - 24 hr 02/28/23 13:32 Temperature 97.4 F Pulse Rate 97 Respiratory Rate 18 Blood Pressure 140/87 H Pulse Oximetry 97 BMI result Body Mass Index 35.3 Course Course Course Narrative: This is a rapid medical exam: Additional HPI, ROS, PE not included below will be deferred to primary provider. Patient is a 52-year-old male with HTN, renal insufficiency, T2DM, diverticulitis, GERD presenting to the emergency department with complaint of abdominal pain, diarrhea for over 1 week. Was recently seen here and diagnosed with an ulcer after endoscopy. Has been taking his prescribed omeprazole with little relief. Complains of nausea and vomiting. Denies blood in emesis or stool. States emesis is green. Denies fevers. Also complains of right sided chest pain which radiates down right arm. Plan: EKG, labs Medical Decision Making Lab Data 02/28/23 14:47 02/28/23 14:47 Labs: Lab Results 02/28/23 Range/Units 14:47 WBC 14.5 H (4.8-10.8) X10*3/uL RBC 5.48 (4.60-5.80) X10*6/uL Hgb 16.3 (14.0-18.0) g/dl Hct 50.4 (42.0-52.0) % MCV 92.0 (80.0-98.0) fL MCH 29.7 (27.0-33.0) pg MCHC 32.3 (31.0-36.0) g/dl RDW 14.9 (11.0-16.0) % Plt Count 270 (160-400) X10*3/uL MPV 11.3 (9.4-12.4) fL Immature Gran % (Auto) 0.7 H (0.0-0.4) % Neut % (Auto) 73.2 H (45-73) % Lymph % (Auto) 19.7 L (20-40) % [place] % (Auto) 5.1 (2-11) % Eos % (Auto) 0.9 (0-4) % Baso % (Auto) 0.4 (0-2) % Lymph # (Auto) 2.9 (1.2-4.9) X10*3/uL [place] # (Auto) 0.7 (0.1-1.2) X10*3/uL Eos # (Auto) 0.1 (0.0-0.4) X10*3/uL Baso # (Auto) 0.1 (0.0-0.2) X10*3/uL Abs Immat Gran (auto) 0.10 H (0.00-0.03) X10*3/uL Absolute Neuts (auto) 10.6 H (2.0-8.3) x10*3/uL Absolute Nucleated RBC 0.000 (0.0-0.012) X10*3/uL Nucleated RBC % (auto) 0.0 (0.0-0.2) /100WBC PT 12.7 (11.1-13.3) SEC INR 1.0 (0.9-1.1) Sodium 140 (135-145) mmol/L Potassium 3.6 (3.3-5.1) mmol/L Chloride 106 (96-108) mmol/L Carbon Dioxide 28 (22-29) mmol/L Anion Gap 10 L (12-20) BUN 13 (9-16) mg/dL Creatinine 1.33 (0.5-1.4) mg/dL Estim Creat Clear Calc 70.8 Estimated GFR 57 Random Glucose 140 H (60-115) mg/dL Calcium 8.9 (8.4-10.2) mg/dL Total Bilirubin 0.5 (0.0-1.0) mg/dL AST 20 (5-37) U/L ALT 39 (0-40) U/L Alkaline Phosphatase 38 L (39-117) U/L Troponin I High Sens < 2.7 (<3.5-35.0) ng/L Total Protein 7.3 (6.5-8.0) g/dL Albumin 4.0 (3.5-5.0) g/dL Discharge Plan Discharge Clinical Impression: Abdominal pain Patient Disposition: Left W/O Completing Treatment Prescriptions: No Action sertraline 50 mg Tablet 50 mg PO DAILY gabapentin 300 mg Capsule 600 mg PO BEDTIME cyclobenzaprine 10 mg Tablet 20 mg PO BEDTIME amlodipine 10 mg tablet 1 tab PO DAILY Janumet 50-1,000 mg Tablet 1 tab PO BID Jardiance 10 mg Tablet 10 mg PO DAILY benazepril 10 mg tablet 2 tab PO DAILY 60 Days Qty: 120 1RF melatonin 10 mg Tablet 20 mg PO BEDTIME omeprazole 20 mg capsule,delayed release(DR/EC) 1 cap PO BID Qty: 60 0RF atorvastatin 20 mg tablet 20 mg PO DAILY aspirin [Adult Low Dose Aspirin] 81 mg tablet,delayed release (DR/EC) 81 mg PO DAILY
--- NOTE | 2023-02-28 13:38 | ECG_ITS ---
Test Reason : CP Blood Pressure : / mmHG Vent. Rate : 086 BPM Atrial Rate : 086 BPM P-R Int : 148 ms QRS Dur : 100 ms QT Int : 392 ms P-R-T Axes : 032 050 070 degrees QTc Int : 469 ms Normal sinus rhythm Normal ECG When compared with ECG of 25-JAN-2022 12:30, Nonspecific T wave abnormality now evident in Lateral leads Referred By: Eloise Oshea Electronically Signed By:ERICA GRIFFIN MD
[2023-02-28 14:52] LABS: MANUAL DIFF FLAG NO
[2023-02-28 14:57] LABS: Basophils Absolute Auto 0.1 X10*3/uL (0.0-0.2); Basophils Percent Auto 0.4 % (0-2); Eosinophils Absolute Auto 0.1 X10*3/uL (0.0-0.4); Eosinophils Percent Auto 0.9 % (0-4); Hematocrit 50.4 % (42.0-52.0); Hemoglobin 16.3 g/dl (14.0-18.0); Imm Gran Pct Auto 0.7 % (0.0-0.4); Lymphocytes Absolute Auto 2.9 X10*3/uL (1.2-4.9); Lymphocytes Percent Auto 19.7 % (20-40); Mean Corpuscular HGB Conc 32.3 g/dl (31.0-36.0); Mean Corpuscular Hemoglobin 29.7 pg (27.0-33.0); Mean Platelet Volume 11.3 fL (9.4-12.4); Monocytes Absolute Auto 0.7 X10*3/uL (0.1-1.2); Monocytes Percent Auto 5.1 % (2-11); Neutrophils Absolute Auto 10.6 x10*3/uL (2.0-8.3); Neutrophils Percent Auto 73.2 % (45-73); Platelet Count 270 X10*3/uL (160-400); Red Blood Count 5.48 X10*6/uL (4.60-5.80); Red Cell Distribution Width 14.9 % (11.0-16.0); White Blood Count 14.5 X10*3/uL (4.8-10.8)
[2023-02-28 15:00] LABS: Prothrombin Time 12.7 SEC (11.1-13.3)
[2023-02-28 15:14] LABS: Alanine Aminotransferase 39 U/L (0-40); Alkaline Phosphatase 38 U/L (39-117); Anion Gap 10 (12-20); Aspartate Amino Transferase 20 U/L (5-37); Bilirubin Total 0.5 mg/dL (0.0-1.0); Blood Urea Nitrogen 13 mg/dL (9-16); Calcium 8.9 mg/dL (8.4-10.2); Carbon Dioxide 28 mmol/L (22-29); Chloride 106 mmol/L (96-108); Creatinine Clr Calc Pharmacy 70.8; Estimated Glomerular Filt Rate 57; Glucose Random 140 mg/dL (60-115); Potassium 3.6 mmol/L (3.3-5.1); Sodium 140 mmol/L (135-145); Total Protein 7.3 g/dL (6.5-8.0)
[2023-02-28 15:20] LABS: Troponin-I High Sensitivity < 2.7 ng/L (<3.5-35.0)
== END 2023-02-28 20:19 | disposition left against medical advice (07) ==
PROVIDERS: Registered Nurse Emergency; Emergency Provider Emergency Medicine; PCP Internal Medicine
DX: R10.9 Unspecified abdominal pain (principal); R07.89 Other chest pain; Z79.899 Other long term (current) drug therapy
CPT/HCPCS: 36415; 71046; 80053; 84484; 85025; 85610; 93005; 99283

== ENCOUNTER → 2023-02-28 13:38 | Outpatient (BNV) | payer OTHER, SELFPAY | PROVIDERS: Emergency Provider Emergency Medicine; PCP Internal Medicine; Visit Provider Internal Medicine Cardiovascular Disease | DX: R07.9 Chest pain, unspecified (principal) | CPT/HCPCS: 93010 ==

== ENCOUNTER 2023-03-06 10:14 | Emergency (ER) | payer OTHER, SELFPAY ==
--- NOTE | ~2023-03-06 | XR_ITS ---
EXAMINATION: XR ABDOMEN KUB CLINICAL INDICATION: Constipation COMPARISON: None available. TECHNIQUE: AP view of the abdomen. FINDINGS: There is moderate stool seen in colon without significant distention. The small bowel loops are normal caliber. No gross bony abnormality seen. XR/XR KUB IMPRESSION: Moderate constipation.
--- NOTE | ~2023-03-06 | CT_ITS ---
EXAMINATION: CT ABDOMEN AND PELVIS WITH CONTRAST CLINICAL INFORMATION: Abdominal pain COMPARISON: Previous CT of the abdomen and pelvis most recent 02/14/2023 TECHNIQUE: Multidetector volumetric images were obtained from the superior aspect of the liver through the pubic symphysis following administration 85 mL of Omnipaque 350 intravenous contrast. Sagittal and coronal reformatted images were obtained on the technologist's workstation. Oral contrast: Yes This CT examination was performed using dose optimization techniques as appropriate, variously including the following: *Automated exposure control *Adjustment of mA and/or kV according to patient size (this includes techniques or standardized protocols for targeted exams where dose is matched to indication/reason for exam; i.e. extremities or head) *Use of iterative reconstruction technique DLP: 833 mGy-cm FINDINGS: LUNG BASES: The visualized lung bases are clear. There is a prosthetic mitral valve. LIVER, GALLBLADDER, AND BILIARY TREE: Fatty liver.. No focal hepatic lesion or biliary ductal dilatation is present. The gallbladder is unremarkable with no evidence of radiopaque gallstones, gallbladder wall thickening, or obvious pericholecystic inflammatory changes. PANCREAS: Unremarkable. SPLEEN: Unremarkable. ADRENAL GLANDS: Unremarkable. KIDNEYS AND URETERS: The kidneys are normal in size, shape, and attenuation. No hydronephrosis, hydroureter, or calculi seen. No perinephric stranding. BLADDER: Unremarkable. GASTROINTESTINAL TRACT: There is a high density lesion in the cecum at the base of the appendix measuring 4 x 7 mm. There are additional similar appearing radiopaque densities seen more inferiorly in the cecum and distal transverse colon. Question represents something the patient has ingested. It is possible the high density lesion at the base of the appendix could be acting like an appendicolith. The base of the appendix is upper normal measuring 8 mm. Slight stranding of the fat surrounding the base of the appendix. Appearance is questionable appendicitis. The remainder of the appendix is normal appearing and contains air. Slightly distended fluid-filled small bowel probably representing an ileus. Surgical changes to the sigmoid colon. Mild diverticulosis of the colon. No evidence of diverticulitis. ABDOMINAL WALL: Postsurgical changes to the anterior abdominal wall. Small bilateral inguinal hernias containing fat. LYMPH NODES: Normal. VASCULAR: Unremarkable. PELVIC VISCERA: Unremarkable. OSSEOUS STRUCTURES: Degenerative changes of the hip joints. CT/CT abdomen pelvis w IV con IMPRESSION: Upper normal-size base of the appendix and stranding of the periappendiceal fat. Appearance is questionable for acute appendicitis. Two 4 x 7 mm round radiopaque densities in the cecum, one at the base of the appendix, and one in the distal transverse colon, question something the patient has recently ingested. It is possible the radiopaque density at the base of the appendix could be acting like an appendicolith. Fluid-filled slightly distended distal small bowel probably representing an ileus. Mild fatty infiltration of the liver. Findings will be communicated by the [employer] workflow company secretary. Fleischner guidelines were followed.
[2023-03-06 11:43] VITALS: BP 155/113; PULSE 100; RESP 18; TEMP 36.6; O2SAT 98; BMI 36.0
--- NOTE | 2023-03-06 11:51 | ED_ITS ---
HPI - Abdominal Pain General Chief Complaint: Abdominal Pain Stated Complaint: Bleeding Ulcer Time Seen by Provider: 03/06/23 16:35 Source: patient Mode of arrival: ambulatory Limitations: no limitations History of Present Illness HPI narrative: Pt is a 52-year-old male with a PMH significant for?sigmoid diverticulitis with perforation abscess, s/p Ammy procedure s/p reversal, HTN, HLD, diabetes type 2, anxiety disorder nonbleeding gastric ulcer with chronic gastritis comes here with pain in abdomen since discharge on 02/15 was admitted here for same with workup comes back as still having diffuse be constipation able to eat anything with nausea and no fever but does have chills no abdominal distension last bowel movement was small 3- 4 days ago Related Data Home Medications Medication Instructions Recorded Confirmed aspirin 81 mg tablet,delayed 81 mg PO DAILY 12/28/19 02/14/23 release (Adult Low Dose Aspirin) atorvastatin 20 mg tablet 20 mg PO DAILY 12/28/19 02/14/23 gabapentin 300 mg capsule 600 mg PO BEDTIME 01/07/20 02/14/23 sertraline 50 mg tablet 50 mg PO DAILY 02/16/20 02/14/23 amlodipine 10 mg tablet 1 tab PO DAILY 01/25/22 02/14/23 cyclobenzaprine 10 mg tablet 20 mg PO BEDTIME 01/25/22 02/14/23 empagliflozin 10 mg tablet 10 mg PO DAILY 01/25/22 02/14/23 (Jardiance) sitagliptin phosphate 50 1 tab PO BID 01/25/22 02/14/23 mg-metformin 1,000 mg tablet (Janumet) melatonin 10 mg tablet 20 mg PO BEDTIME 02/14/23 02/14/23 Previous Rx's Medication Instructions Recorded benazepril 10 mg tablet 2 tab PO DAILY 60 days #120 tabs 01/28/22 omeprazole 20 mg capsule,delayed 1 cap PO BID #60 caps 02/15/23 release amoxicillin 875 mg-potassium 1 tab PO BID #20 tabs 03/06/23 clavulanate 125 mg tablet oxycodone 5 mg tablet 5 mg PO Q6H PRN pain #20 tabs 03/06/23 polyethylene glycol 3350 17 17 g PO DAILY #510 grams 03/06/23 gram/dose oral powder (Miralax) Allergies Allergy/AdvReac Type Severity Reaction Status Date / Time morphine [MORPHINE] Allergy Unknown HIVES, rash Verified 02/28/23 13:32 Review of Systems Review of Systems Yes all other systems are reviewed and are negative [facility] Past Medical History Medical History Blurry vision Obesity Elevated blood pressure reading Hypertension, uncontrolled Renal insufficiency Sleep apnea Diabetes Lower GI bleed Diverticulosis Hematochezia Right ankle pain History of diverticulitis Mitral valve disease Anxiety GERD (gastroesophageal reflux disease) Constipation Hyperlipidemia Hypertension Surgical History History of colonoscopy History of mitral valve repair Status post Ammy procedure (10/21/19) H/O mitral valve repair Family History Family History Mother Diabetes mellitus Father Diabetes mellitus Social History Social History Household Members: Significant Other Housing: Apartment Are you a primary healthcare translator to a significant other at home: No Do you presently have visiting nurse or other home services: No Unable to assess alcohol history related to: Unable to respond Alcohol intake: current Alcohol intake frequency: holidays/special occasions only Alcohol type: beer and hard liquor Comment: PT SLEEPING Patient Tobacco Use Status: Never used Tobacco Smoked in Last 30 Days: No Second Hand Smoke Exposure: No Use of substances other than those prescribed or required for medical reasons: No Substance Use Type: Marijuana Advance Directives: Yes Advance Directives on File: Yes Advance Directives Date on File: 02/22/20 service: No Current occupational status: unemployed Physical Exam ED Vital Signs: Vital Signs - 24 hr 03/06/23 11:43 03/06/23 16:45 03/06/23 20:18 Temperature 97.9 F 97.9 F 96.5 F L Pulse Rate 100 101 H 101 H Respiratory Rate 18 20 14 Blood Pressure 155/113 H 117/93 H 146/97 H Pulse Oximetry 98 96 96 Oxygen Delivery Method Room Air Room Air Room Air 03/06/23 21:28 Temperature 97.1 F Pulse Rate 98 Respiratory Rate 17 Blood Pressure 161/96 H Pulse Oximetry 95 Oxygen Delivery Method Room Air BMI result Body Mass Index 36.0 Appearance: Alert. Oriented X3. No acute distress. Eyes: No pallor or icterus ENT: Pharynx normal. Oral Mucosa moist Neck: Normal inspection. Neck supple. CVS: Normal heart rate and rhythm. Pulses normal. Respiratory: No respiratory distress. Equal air entry bilateral, no wheezing/rales/rhonchi Abdomen: Soft, diffuse tenderness no rebound tenderness or guarding. No significant tenderness in right lower abdomen Bowel sounds are present, no mass palpable, no CVA tenderness Skin: Skin warm and dry. Normal skin color. Normal skin turgor. Extremities: No lower extremity edema. No calf tenderness Neuro: Oriented X 3 Course Course Course Narrative: This is an RME: Additional HPI, ROS, PE not included below will be deferred to primary provider. This is a 52-year-old male PMH significant for?sigmoid diverticulitis with perforation abscess, s/p Ammy procedure with eventual reversal, HTN, HLD, [id number] diabetes type 2, and generalized anxiety disorder who presents to the ED with complaints of abdominal pain, bilateral flank pain x2 weeks. Patient was admitted to the hospital for intractable nausea and vomiting and had a negative CT scan. He was seen by GI who did an endoscopy which revealed a small ulcer, gastritis in duo tinnitus with recommendations to take PPI an outpatient colonoscopy. He states he has not had a normal bowel movement for 5 days. Abdomen is soft however diffusely tender. Plan: Labs, UA, KUB x-ray Medical Decision Making Medical Decision Making [facility] Narrative: Patient with history of diverticulitis status post perforation colostomy and reversal comes here for ongoing pain for last 2 weeks and lower abdomen workup showed leukocytosis CT scan showed possible appendicitis patient does not have focal tenderness has diffuse tenderness more on the left side than the right will call Dr. Wilburn surgeon to recheck on the CT scan Case discussed with surgeon does not look like appendicitis advised to prescribed Augmentin and follow-up in 2 days in the office Differential Diagnosis Differential Diagnoses: The differential diagnosis associated with the presentation includes Diverticulitis/colitis/appendicitis/constipation Admission/Observation Consideration of admission/observation: Escalation of care including admission/observation considered Lab Data [facility] Lab Attestation statement: I reviewed the patient's lab results. 03/06/23 13:56 03/06/23 13:56 Labs: Lab Results 03/06/23 03/06/23 Range/Units 13:56 16:43 WBC 16.1 H (4.8-10.8) X10*3/uL RBC 5.58 (4.60-5.80) X10*6/uL Hgb 16.5 (14.0-18.0) g/dl Hct 50.5 (42.0-52.0) % MCV 90.5 (80.0-98.0) fL MCH 29.6 (27.0-33.0) pg MCHC 32.7 (31.0-36.0) g/dl RDW 14.6 (11.0-16.0) % Plt Count 280 (160-400) X10*3/uL MPV 11.2 (9.4-12.4) fL Immature Gran % (Auto) 0.8 H (0.0-0.4) % Neut % (Auto) 74.3 H (45-73) % Lymph % (Auto) 18.6 L (20-40) % [place] % (Auto) 5.2 (2-11) % Eos % (Auto) 0.6 (0-4) % Baso % (Auto) 0.5 (0-2) % Lymph # (Auto) 3.0 (1.2-4.9) X10*3/uL [place] # (Auto) 0.8 (0.1-1.2) X10*3/uL Eos # (Auto) 0.1 (0.0-0.4) X10*3/uL Baso # (Auto) 0.1 (0.0-0.2) X10*3/uL Abs Immat Gran (auto) 0.13 H (0.00-0.03) X10*3/uL Absolute Neuts (auto) 12.0 H (2.0-8.3) x10*3/uL Absolute Nucleated RBC 0.000 (0.0-0.012) X10*3/uL Nucleated RBC % (auto) 0.0 (0.0-0.2) /100WBC Sodium 140 (135-145) mmol/L Potassium 3.6 (3.3-5.1) mmol/L Chloride 104 (96-108) mmol/L Carbon Dioxide 26 (22-29) mmol/L Anion Gap 14 (12-20) BUN 11 (9-16) mg/dL Creatinine 1.35 (0.5-1.4) mg/dL Estim Creat Clear Calc 70.4 Estimated GFR 56 POC Glucose 112 (60-115) mg/dL Random Glucose 99 (60-115) mg/dL Calcium 9.0 (8.4-10.2) mg/dL Total Bilirubin 0.5 (0.0-1.0) mg/dL Direct Bilirubin 0.2 (0.0-0.5) mg/dL AST 35 (5-37) U/L ALT 60 H (0-40) U/L Alkaline Phosphatase 36 L (39-117) U/L Total Protein 7.7 (6.5-8.0) g/dL Albumin 4.2 (3.5-5.0) g/dL Lipase 18 (8-78) U/L Urine Color Yellow Urine Appearance Clear Urine pH 6.0 (5.0-9.0) Ur Specific [place] 1.015 (1.005-1.025) Urine Protein Negative (Neg-Trace) mg/dL Urine Glucose (UA) >=1000 H (Negative) mg/dL Urine Ketones Negative (Negative) mg/dL Urine Blood Negative (Negative) Urine Nitrite Negative (Negative) Ur Leukocyte Esterase Negative (Negative) Urine RBC 0-2 (0-2) /HPF Urine WBC 0-5 (0-5) /HPF Ur Squamous Epith Cells 0-2 (0-2) /HPF Urine Bacteria None Seen (None Seen) Hyaline Casts 0-2 (0-2) /LPF Independent Interpretation I performed an independent interpretation of an: CT Scan Radiology Impression Discussion of test interpretation with radiology: I have reviewed the radiologist's reading. Radiologist Impression: CT/CT abdomen pelvis w IV con IMPRESSION: Upper normal-size base of the appendix and stranding of the periappendiceal fat. Appearance is questionable for acute appendicitis. Two 4 x 7 mm round radiopaque densities in the cecum, one at the base of the appendix, and one in the distal transverse colon, question something the patient has recently ingested. It is possible the radiopaque density at the base of the appendix could be acting like an appendicolith. Fluid-filled slightly distended distal small bowel probably representing an ileus. Mild fatty infiltration of the liver. Findings will be communicated by the [facility] pit supervisor. Fleischner guidelines were followed. Medications Administered Discontinued Medications Generic Name Dose Route Start Last Admin Trade Name Freq PRN Reason Stop Dose Admin Amoxicillin/Clavulanate Potassium 875 mg 03/06/23 20:34 03/06/23 20:53 Amoxicillin/Potassium Clav 875 Mg Tablet PO 03/06/23 20:35 875 mg ONCE ONE Administration Hydromorphone HCl 2 mg 03/06/23 16:50 03/06/23 18:40 Hydromorphone Hcl 2 Mg/Ml Vial IVPUSH 03/06/23 16:51 2 mg ONCE ONE Administration Protocol Sodium Chloride 1,000 mls @ 999 mls/hr 03/06/23 16:49 03/06/23 21:14 Ns IV 03/06/23 17:49 Infused .Q1H1M ONE Infusion Iohexol 100 ml 03/06/23 18:47 03/06/23 18:48 Iohexol 350 Mg/Ml 100 Ml Infus..Btl IV 03/06/23 18:48 85 ml ONCE ONE Administration Magnesium Hydroxide 30 ml 03/06/23 19:04 03/06/23 19:24 Milk Of Magnesia 30 Ml Oral.Susp PO 03/06/23 19:05 30 ml ONCE ONE Administration Ondansetron HCl 4 mg 03/06/23 16:49 03/06/23 18:45 Ondansetron Hcl 4 Mg/2 Ml Vial IVPUSH 03/06/23 16:50 4 mg ONCE ONE Administration Ondansetron HCl 4 mg 03/06/23 19:04 03/06/23 19:24 Ondansetron Hcl 4 Mg/2 Ml Vial IVPUSH 03/06/23 19:05 4 mg ONCE ONE Administration Discharge Plan Discharge Clinical Impression: Abdominal pain Patient Disposition: Home, Self-Care Instructions: Abdominal Pain (ED) Additional Instructions: Cause of your abdominal pain is not clear you have constipation Take antibiotics as prescribed and pain medication Stool softener as advised Report to the ER if worsening of the pain See surgeon in 1-2 days Prescriptions: New amoxicillin-pot clavulanate 875-125 mg tablet 1 tab PO BID Qty: 20 0RF polyethylene glycol 3350 [Miralax] 17 gram/dose powder 17 g PO DAILY Qty: 510 0RF oxycodone 5 mg tablet 5 mg PO Q6H PRN (Reason: pain) Qty: 20 0RF Rx Instructions: Partial Fill upon patient request. No Action sertraline 50 mg Tablet 50 mg PO DAILY gabapentin 300 mg Capsule 600 mg PO BEDTIME cyclobenzaprine 10 mg Tablet 20 mg PO BEDTIME amlodipine 10 mg tablet 1 tab PO DAILY Janumet 50-1,000 mg Tablet 1 tab PO BID Jardiance 10 mg Tablet 10 mg PO DAILY benazepril 10 mg tablet 2 tab PO DAILY 60 Days Qty: 120 1RF melatonin 10 mg Tablet 20 mg PO BEDTIME omeprazole 20 mg capsule,delayed release(DR/EC) 1 cap PO BID Qty: 60 0RF atorvastatin 20 mg tablet 20 mg PO DAILY aspirin [Adult Low Dose Aspirin] 81 mg tablet,delayed release (DR/EC) 81 mg PO DAILY Referrals: Ricco Echevarria MD [Physician] - 2 days Interventions: ED Discharge Assessment Last Done: 03/06/23 21:29 Discharge Date/Time: 03/06/23 21:30
[2023-03-06 14:00] LABS: MANUAL DIFF FLAG NO
[2023-03-06 14:02] LABS: Basophils Absolute Auto 0.1 X10*3/uL (0.0-0.2); Basophils Percent Auto 0.5 % (0-2); Eosinophils Absolute Auto 0.1 X10*3/uL (0.0-0.4); Eosinophils Percent Auto 0.6 % (0-4); Hematocrit 50.5 % (42.0-52.0); Hemoglobin 16.5 g/dl (14.0-18.0); Imm Gran Abs Auto 0.13 X10*3/uL (0.00-0.03); Imm Gran Pct Auto 0.8 % (0.0-0.4); Lymphocytes Percent Auto 18.6 % (20-40); Mean Corpuscular HGB Conc 32.7 g/dl (31.0-36.0); Mean Corpuscular Hemoglobin 29.6 pg (27.0-33.0); Mean Corpuscular Volume 90.5 fL (80.0-98.0); Mean Platelet Volume 11.2 fL (9.4-12.4); Monocytes Absolute Auto 0.8 X10*3/uL (0.1-1.2); Monocytes Percent Auto 5.2 % (2-11); Neutrophils Percent Auto 74.3 % (45-73); Platelet Count 280 X10*3/uL (160-400); Red Blood Count 5.58 X10*6/uL (4.60-5.80); Red Cell Distribution Width 14.6 % (11.0-16.0); White Blood Count 16.1 X10*3/uL (4.8-10.8)
[2023-03-06 14:03] LABS: Appearance Urine Clear; Color Urine Yellow; Glucose Urine UA >=1000 mg/dL (Negative); Leukocyte Esterase Urine Negative (Negative); Nitrite Urine Negative (Negative); Specific Gravity - Urine 1.015 (1.005-1.025); UMIC TRIGGER UACC YES; Urine Blood Negative (Negative); Urine Ketones Negative (Negative); Urine Protein Negative (Neg-Trace)
[2023-03-06 14:07] LABS: Bacteria Urine None Seen (None Seen); Hyaline Casts Urine 0-2 /LPF (0-2); RBC Urine 0-2 /HPF (0-2); Squamous Epithelial Cell Urine 0-2 /HPF (0-2); WBC Urine 0-5 /HPF (0-5)
[2023-03-06 14:17] LABS: Alanine Aminotransferase 60 U/L (0-40); Albumin Level 4.2 g/dL (3.5-5.0); Alkaline Phosphatase 36 U/L (39-117); Anion Gap 14 (12-20); Aspartate Amino Transferase 35 U/L (5-37); Bilirubin Direct 0.2 mg/dL (0.0-0.5); Bilirubin Total 0.5 mg/dL (0.0-1.0); Blood Urea Nitrogen 11 mg/dL (9-16); Carbon Dioxide 26 mmol/L (22-29); Chloride 104 mmol/L (96-108); Creatinine Clr Calc Pharmacy 70.4; Estimated Glomerular Filt Rate 56; Glucose Random 99 mg/dL (60-115); Lipase 18 U/L (8-78); Potassium 3.6 mmol/L (3.3-5.1); Sodium 140 mmol/L (135-145); Total Protein 7.7 g/dL (6.5-8.0)
--- OUTSIDE RECORDS SUMMARY | 2023-03-06 16:42 | XMS_ITS | Continuity of Care Document ---
Author Name Unknown Organization [facility] Address [address] [place] [address]- Care Team Providers Care Prop And Scenery Maker Name Role Phone Blayne CHRISTIANSEN, Daniel Mcintosh Primary Care Physician Encounter [facility] Date(s): 12/25/22 - 01/24/23 [facility] [address] [place] [id number] Allergies, Adverse Reactions, Alerts Substance Reaction Severity Status morphine hives shortness of breath and break out in rash Active Immunizations Given and Recorded Vaccine Date Status Refusal Reason pneumococcal 23-valent vaccine 07/01/19 Given Medications amLODIPine 10 mg oral tablet 10 mg, 1, tablet, By Mouth, Daily, # 30 tablet, Refills 0, Maintenance, 11/03/21 6:43:00 EDT, Partial fill upon patient request if the prescription is for a schedule II opioid drug. Start Date: 11/03/21 Status: Ordered atorvastatin 20 mg oral tablet 1 tablet = 20 mg, By Mouth, Daily, # 30 tablet, 0 Refills, Maintenance, 06/27/19 17:30:00 EDT, Tablet Start Date: 06/27/19 Status: Ordered benazepril 10 mg oral tablet 1 tablet = 10 mg, By Mouth, Daily, # 60 tablet, 0 Refills, Maintenance, 11/27/18 15:51:17 EDT, Tablet Start Date: 11/27/18 Status: Ordered colchicine 0.6 mg oral tablet 0.6 mg, 1, tablet, By Mouth, Daily, # 90 tablet, Refills 0, Tot. Refills 0, Maintenance, 06/04/22 13:45:00 EST, Print Requisition, Partial fill upon patient request if the prescription is for a schedule II opioid drug. Start Date: 06/04/22 Status: Ordered cyclobenzaprine 10 mg oral tablet 20 mg, 2, tablet, By Mouth, Daily at bedtime, # 90 tablet, Refills 0, Maintenance, 10/03/21 21:57:00 EDT, Partial fill upon patient request if the prescription is for a schedule II opioid drug. Start Date: 10/03/21 Status: Ordered Ecotrin 325 mg oral delayed release tablet 1 tablet = 325 mg, By Mouth, Daily, # 30 tablet, 0 Refills, Maintenance, 12/08/18 11:27:52 EDT, EC Tablet Start Date: 12/08/18 Status: Ordered gabapentin 300 mg oral capsule 300 mg, 1, capsule, By Mouth, 3 times a day, # 270 capsule, Refills 0, Maintenance, 10/03/21 21:58:00 EDT, Partial fill upon patient request if the prescription is for a schedule II opioid drug. Start Date: 10/03/21 Status: Ordered Januvia 25 mg oral tablet 1 tablet = 25 mg, By Mouth, Daily, # 30 tablet, 0 Refills, Maintenance, 06/01/22 9:12:00 EST, Tablet, Partial fill upon patient request if the prescription is for a schedule II opioid drug. Start Date: 06/01/22 Status: Ordered Jardiance 25 mg oral tablet 1 tablet = 25 mg, By Mouth, 2 times a day, # 30 tablet, 0 Refills, Maintenance, 06/01/22 9:12:00 EST, Tablet, Partial fill upon patient request if the prescription is for a schedule II opioid drug. Start Date: 06/01/22 Status: Ordered metoprolol 50 mg oral tablet, extended release 150 mg, 3, tablet, By Mouth, Daily, # 30 tablet, Refills 0, Maintenance, 12/12/18 0:51:06 EDT Start Date: 12/12/18 Status: Ordered sertraline 25 mg oral tablet 1 tablet = 25 mg, By Mouth, Daily, # 30 tablet, 0 Refills, Maintenance, 02/13/17 15:23:58 EST, Tablet Start Date: 02/13/17 Status: Ordered Problem List Condition Confirmation Course Effective Dates Status Health St atus Informant Anxiety Confirmed Active CKD (chronic kidney disease), stage III Confirmed Active HTN (hypertension) Confirmed Active Obese class I Confirmed Active NALINI on CPAP Confirmed Active Social History Social History Type Response Tobacco Use: pt denies. Sex Patient Care team information Care Team Personnel Name: Natalee Marion RN Position: [facility] ED RN W/OE and Tasks Member Role: Primary Care Nurse Name: Maco Pace MD Position: [facility] Renal MD Member Role: Lifetime Consulting Physician Address: Address: [address] [place] [address], [address] [facility] [address]- [place] Name: Julianne Rubi RN Position: [facility] Hospital Java J2E[employer] Software Engineer Member Role: Primary Care Nurse Name: Raúl Montano MD Position: [facility] Renal MD Member Role: Lifetime Consulting Physician Address: Address: [address] [place] [address], [address] [facility] [place] [address]- [place] Name: Oni Montes Jr Position: [facility] ED RN W/OE and Tasks Member Role: Primary Care Nurse Name: Daniel Cisneros MD Position: [facility] Physician - Primary Care Member Role: PCP Address: Address: [address] [place] [address], [address] [facility] [place] [address]- [place] Name: Bony Moreland MD Position: [facility] Renal MD Member Role: Lifetime Consulting Physician Address: Address: [address] [place] [address] [facility] [place] [address]- [place] Name: Alysia Freeman RN Position: [facility] RN Member Role: Primary Care Nurse Name: Sofya Maloney Position: [facility] ARLINE Office Staff Member Role: Lifetime Consulting Physician Care Team Related Persons Name: HAYLEE SOLORZANO Address: home [address] [place] [address] Name: NOE CASTELLANOS Address: home [address] [place] [address]
--- OUTSIDE RECORDS SUMMARY | 2023-03-06 16:42 | XMS_ITS | Continuity of Care Document ---
Author Name Unknown Organization [facility] Address [address] [place] [address]- Care Team Providers Care Sales Professional Name Role Phone Daniel Cisneros MD Primary Care Physician Encounter [facility] [place] Date(s): 01/15/23 - 02/14/23 [facility] Care [address] [place] [id number] Allergies, Adverse Reactions, Alerts Substance Reaction Severity [...] Team Personnel Name: Natalee Marion RN Position: [facility] ED RN W/OE and Tasks Member Role: Primary Care Nurse Name: Maco Pace MD Position: [facility] Renal MD Member Role: Lifetime Consulting Physician Address: Address: [address] [place] [address] [address] [place] [address]- [place] Name: Julianne Rubi RN Position: [facility] Hospital Auto Body Detailer Member Role: Primary Care Nurse Name: Raúl Montano MD Position: [facility] Renal MD Member Role: Lifetime Consulting Physician Address: Address: [address] [place] [address], [address] [place] [address]- [place] Name: Oni Montes Jr Position: [facility] ED RN W/OE and Tasks Member Role: Primary Care Nurse Name: Daniel Cisneros MD Position: [facility] Physician - Primary Care Member Role: PCP Address: Address: [address] [place] [address], [address] [facility] [place] [address]- [place] Name: Bony Moreland MD Position: [facility] Renal MD Member Role: Lifetime Consulting Physician Address: Address: [address] [place] [address] [facility] [place] [address]- [place] Name: Alysia Freeman RN Position: [facility] RN Member Role: Primary Care Nurse Name: Sofya Maloney Position: [facility] ARLINE Office Staff Member Role: Lifetime Consulting Physician Care Team Related Persons Name: DENNY GALE Address: home [address] [place] [address] Name: NOE CASTELLANOS Address: home [address] [place] [address]
--- OUTSIDE RECORDS SUMMARY | 2023-03-06 16:42 | XMS_ITS | Continuity of Care Document ---
Author Name Unknown Organization [facility] Address [address] [place] [address]- Care Team Providers Care Solder Sprayer Name Role Phone Blayne CHRISTIANSEN, Daniel Mcintosh Primary Care Physician [phone] [place] [facility] [place]/08/21 - 08/20/[address] [address] Attending Physician: Dino Winslow MD Admitting Physician: Dino Winslow MD Allergies, Adverse Reactions, Alerts Substance Reaction Severity Status morphine shortness of breath and break out in tamie h Active Immunizations Given and Recorded Vaccine Date Status Refusal Reason pneumococcal 23-valent vaccine 07/01/19 Given Medications acetaminophen 325 mg oral tablet 650 mg, 2, tablet, By Mouth, 4 times a day, PRN, More specifically 1 to 2 tablets every 6 hours as needed for pain, # 20 tablet, Refills 0, Tot. Refills 0, Maintenance, as needed for pain, 09/11/19 12:22:00 EDT, Route to Pharmacy Electronically, [facility] Start Date: 09/11/19 Stop Date: 09/14/19 Status: Ordered amLODIPine 5 mg oral tablet 5 mg, 1, tablet, By Mouth, Daily, # 30 tablet, Refills 0, Tot. Refills 0, Maintenance, 02/28/17 15:27:00, Route to Pharmacy Electronically, [id number], [facility]/pharmacy #[id number] Start Date: 02/28/17 Status: Ordered atorvastatin 20 mg oral tablet 1 tablet = 20 mg, By Mouth, Daily, # 30 tablet, 0 Refills, Maintenance, 06/27/19 17:30:00 EDT, Tablet Start Date: 06/27/19 Status: Ordered benazepril 10 mg oral tablet 1 tablet = 10 mg, By Mouth, Daily, # 60 tablet, 0 Refills, Maintenance, 11/27/18 15:51:17 EDT, Tablet Start Date: 11/27/18 Status: Ordered Ecotrin 325 mg oral delayed release tablet 1 tablet = 325 mg, By Mouth, Daily, # 30 tablet, 0 Refills, Maintenance, 12/08/18 11:27:52 EDT, EC Tablet Start Date: 12/08/18 Status: Ordered ibuprofen 600 mg oral tablet 600 mg, 1, tablet, By Mouth, 3 times a day, PRN, then as needed, # 30 tablet, Refills 0, Tot. Refills 0, Maintenance, Pain , Mild, 12/27/19 11:26:00 EDT, Route to Pharmacy Electronically, [facility]/pharmacy #[id number], 165, cm, 12/27/19 10:56:00 EDT, Height, 100... Start Date: 12/27/19 Stop Date: 12/30/19 Status: Ordered LORazepam 0.5 mg oral tablet 1 tablet = 0.5 mg, By Mouth, Daily, PRN as needed for anxiety, # 10 tablet, 0 Refills, Maintenance,06/29/19 1:48:00 EDT, Tablet Start Date: 06/29/19 Status: Ordered metoprolol 50 mg oral tablet, extended release 150 mg, 3, tablet, By Mouth, Daily, # 30 tablet, Refills 0, Maintenance, 12/12/18 0:51:06 EDT Start Date: 12/12/18 Status: Ordered oxyCODONE 5 mg oral tablet 10 mg, 2, tablet, By Mouth, Every 6 hours, PRN, # 10 tablet, Refills 0, Tot. Refills 0, Maintenance, Pain, 05/07/21 4:41:00 EST, Route to Pharmacy Electronically, [facility]/pharmacy #[id number], Partial fill upon patient request if the prescription is for a sched... Start Date: 05/07/21 Status: Ordered permethrin 5% topical cream 1 application, Topically, Once, # 60 Gm, 0 Refills, Soft Stop, 05/02/20 19:17:00 EST, Cream, [facility]/pharmacy #[id number], Partial fill upon patient request if the prescription is for a schedule II opioid drug., 1 application Topically Once, 165, cm, 05/02/20 1... Start Date: 05/02/20 Status: Ordered sertraline 25 mg oral tablet 1 tablet = 25 mg, By Mouth, Daily, # 30 tablet, 0 Refills, Maintenance, 02/13/17 15:23:58 EST, Tablet Start Date: 02/13/17 Status: Ordered Zofran 4 mg oral tablet 1 tablet = 4 mg, By Mouth, Every 8 hours, PRN Nausea & Vomiting, # 10 tablet, 0 Refills, Maintenance, 09/11/19 12:24:00 EDT, Tablet, [facility]/pharmacy #[id number], 167, cm, 09/11/19 11:10:00 EDT, Height, 107.1, kg, 09/11/19 11:10:00 EDT, Dry Weight Start Date: 09/11/19 Status: Ordered Problem List Condition Effective Dates Status Health Status Inform ant Anxiety(Confirmed) Active CKD (chronic kidney disease) , stage III(Confirmed) Active HTN (hypertension)(Confirmed) Active Obese class II(Confirmed) Active NALINI on CPAP(Confirmed) Active Social History Social History Type Response Smoking Status Never (less than 100 in lifetime) entered on: 12/15/18 Sex Male
--- OUTSIDE RECORDS SUMMARY | 2023-03-06 16:42 | XMS_ITS | Continuity of Care Document ---
Author Name Unknown Organization [facility] Address [address] [place] [address]- Care Team Providers Care Survey Instrument Operator Name Role Phone Blayne CHRISTIANSEN, Daniel Mcintosh Primary Care Physician [phone] Encounter [facility] Date(s): 12/25/22 - 01/24/23 [facility] [address], [place] [address] Allergies, Adverse Reactions, Alerts Substance Reaction Severity [...] Team Personnel Name: Natalee Marion RN Position: [facility] ED RN W/OE and Tasks Member Role: Primary Care Nurse Name: Maco Pace MD Position: [facility] Renal MD Member Role: Lifetime Consulting Physician Address: Address: [address] [place] [address], [address] [facility] [place] [address]- [place] Name: Julianne Rubi RN Position: [facility] Hospital Material Stress Tester Member Role: Primary Care Nurse Name: Raúl Montano MD Position: [facility] Renal MD Member Role: Lifetime Consulting Physician Address: Address: [address] [place] [address], [address] [facility] [place] [address]- [place] Name: Oni Montes Jr Position: [facility] ED RN W/OE and Tasks Member Role: Primary Care Nurse Name: Daniel Cisneros MD Position: [facility] Physician - Primary Care Member Role: PCP Address: Address: [address] [place] [address], [address] [facility] [place] [place] [address]- [place] Name: Bony Moreland MD Position: [facility] Renal MD Member Role: Lifetime Consulting Physician Address: Address: [address] [place] [address] [facility] [place] [address]- [place] Name: Alysia Freeman RN Position: [facility] RN Member Role: Primary Care Nurse Name: Sofya Maloney Position: [facility] A[place] Office Staff Member Role: Lifetime Consulting Physician Care Team Related Persons Name: HAYLEE SOLORZANO Address: home [address] [place] [address] Name: NOE CASTELLANOS Address: home [address] [place] [address]
--- OUTSIDE RECORDS SUMMARY | 2023-03-06 16:42 | XMS_ITS | Continuity of Care Document ---
Author Name Unknown Organization [facility] Address [address] [place] [address]- Care Team Providers Care Golf Shoe Spike Assembler Name Role Phone Daniel Cisneros MD Primary Care Physician Encounter [facility] [place] [facility] Date(s): 11/08/22 - 12/08/22 [facility] [address] [place] [address]- Attending Physician: Miguelito Chang Admitting Physician: Miguelito Chang Referring Physician: AdmtrMiguelito Allergies, Adverse Reactions, Alerts Substance Reaction Severity [...] Confirmed Active Obese class I Confirmed Active NAILNI on CPAP Confirmed Active Social History Social History Type Response Tobacco Use: pt denies. Sex Patient Care team information Care Team Personnel Name: Natalee Marion RN Position: [facility] ED RN W/OE and Tasks Member Role: Primary Care Nurse Name: Maco Pace MD Position: [facility] Renal MD Member Role: Lifetime Consulting Physician Address: Address: [address] [place] [address], [address] [facility] [place] [address]- Name: Julianne Rubi RN Position: [facility] Hospital Academic Affairs Dean Member Role: Primary Care Nurse Name: Raúl Montano MD Position: [facility] Renal MD Member Role: Lifetime Consulting Physician Address: Address: [address] [place] [address], [address] [facility] [place] [address]- Name: Oni Montes Jr Position: [facility] ED RN W/OE and Tasks Member Role: Primary Care Nurse Name: Daniel Cisneros MD Position: [facility] Physician - Primary Care Member Role: PCP Address: Address: [address] [place] [address], [address] [facility] [place] [address]- Name: Bony Moreland MD Position: [facility] Renal MD Member Role: Lifetime Consulting Physician Address: Address: [address] [place] [address] [facility] [place] [address]- Name: Alysia Freeman RN Position: [facility] RN Member Role: Primary Care Nurse Care Team Related Persons Name: HAYLEE SOLORZANO Address: home [address] [place] [address] Name: NOE CASTELLANOS Address: home [address] [place] [address]
[2023-03-06 16:45] VITALS: BP 117/93; PULSE 101; RESP 20; TEMP 36.6; O2SAT 96
[2023-03-06 16:47] LABS: Glucose, Whole Blood 112 mg/dL (60-115)
[2023-03-06] MEDS: 0.9 % Sodium Chloride 1,000 ML 999 ML IV (18:38)
[2023-03-06] MEDS: HYDROmorphone HCl 2 MG/ML VIAL IVPUSH (18:40)
[2023-03-06] MEDS: ondansetron HCL 4 MG/2 ML VIAL IVPUSH ×2 (18:45→19:24)
[2023-03-06] MEDS: iohexoL 350 MG/ML 100 ML INFUS..BTL IV (18:48)
[2023-03-06] MEDS: Milk of Magnesia 30 ML ORAL.SUSP PO (19:24)
[2023-03-06 20:18] VITALS: BP 146/97; PULSE 101; RESP 14; TEMP 35.8; O2SAT 96
--- NOTE | 2023-03-06 20:27 | PC.NURSE ---
Patient able to ambulate to bathroom independently. Patient generally well appearing at this time, states that the pain is becoming bad again. Patient is resting on stretcher, no s/s of distress noted at this time.
[2023-03-06] MEDS: Amoxicillin/Potassium Clav 875 MG TABLET PO (20:53)
[2023-03-06 21:28] VITALS: BP 161/96; PULSE 98; RESP 17; TEMP 36.2; O2SAT 95
== END 2023-03-06 21:30 | disposition home or self-care (01) ==
PROVIDERS: Physician Assistant Medical; Emergency Provider Internal Medicine; PCP Internal Medicine
DX: R10.9 Unspecified abdominal pain (principal); E11.9 Type 2 diabetes mellitus without complications; I10 Essential (primary) hypertension; E78.5 Hyperlipidemia, unspecified; E66.9 Obesity, unspecified; Z68.36 Body mass index [BMI] 36.0-36.9, adult; Z95.2 Presence of prosthetic heart valve; Z79.82 Long term (current) use of aspirin; Z79.02 Long term (current) use of antithrombotics/antiplatelets; Z79.84 Long term (current) use of oral hypoglycemic drugs; Z79.899 Other long term (current) drug therapy
CPT/HCPCS: 36415; 74018; 74177; 80048; 80076; 81001; 81003; 82947; 83690; 85025; 96361; 96374; 96375; 96376; 99284; J1170; J2405; Q9967

== ENCOUNTER 2023-04-22 11:06 | Emergency (ER) | payer OTHER, SELFPAY ==
[2023-04-22] VITALS (8 sets, daily range): BP systolic 157–205; BP diastolic 104–130; PULSE 84–108; RESP 18–20; TEMP 36.7–36.8; O2SAT 95–98; BMI 32.5
--- NOTE | 2023-04-22 | ECG_ITS ---
Test Reason : CHEST PAIN Blood Pressure : / mmHG Vent. Rate : 100 BPM Atrial Rate : 100 BPM P-R Int : 148 ms QRS Dur : 104 ms QT Int : 394 ms P-R-T Axes : 048 047 063 degrees QTc Int : 508 ms Normal sinus rhythm Incomplete right bundle branch block Nonspecific T wave abnormality Prolonged QT Abnormal ECG When compared with ECG of 28-FEB-2023 14:43, Incomplete right bundle branch block is now Present Referred By: Generic ED Physician Electronically Signed By:Chino Linton
--- NOTE | ~2023-04-22 | CT_ITS ---
EXAMINATION: CT ABDOMEN AND PELVIS WITH CONTRAST CLINICAL INFORMATION: Diffuse abdominal pain. COMPARISON: 03/06/2023 TECHNIQUE: Multidetector volumetric images were obtained from the superior aspect of the liver through the pubic symphysis following administration 85 mL of Omnipaque 350 intravenous contrast. Sagittal and coronal reformatted images were obtained on the technologist's workstation. Oral contrast: No This CT examination was performed using dose optimization techniques as appropriate, variously including the following: *Automated exposure control *Adjustment of mA and/or kV according to patient size (this includes techniques or standardized protocols for targeted exams where dose is matched to indication/reason for exam; i.e. extremities or head) *Use of iterative reconstruction technique DLP: 727 mGy-cm FINDINGS: LUNG BASES: No pleural or pericardial effusion. LIVER, GALLBLADDER, AND BILIARY TREE: The liver is normal in size and contour. No focal hepatic lesion or biliary ductal dilatation is present. The gallbladder is unremarkable with no evidence of radiopaque gallstones, gallbladder wall thickening, or obvious pericholecystic inflammatory changes. PANCREAS: Unremarkable. SPLEEN: Unremarkable. ADRENAL GLANDS: Unremarkable. KIDNEYS AND URETERS: The kidneys are normal in size, shape, and attenuation. No hydronephrosis, hydroureter, or calculi seen. No perinephric stranding. BLADDER: Unremarkable. GASTROINTESTINAL TRACT: Surgical anastomosis in the sigmoid colon. No small bowel obstruction. Appendix is within normal limits. ABDOMINAL WALL: No significant hernia is appreciated. LYMPH NODES: No bulky lymphadenopathy. VASCULAR: Normal caliber abdominal aorta. PELVIC VISCERA: Unremarkable. OSSEOUS STRUCTURES: No destructive bone lesions. CT/CT abdomen pelvis w IV con IMPRESSION: No acute abnormality in the abdomen or pelvis.
--- NOTE | ~2023-04-22 | XR_ITS ---
EXAMINATION: XR CHEST CLINICAL INFORMATION: Chest pain COMPARISON: Chest 02/28/2023 TECHNIQUE: Frontal view of the chest was obtained. FINDINGS: The lungs are well-expanded and clear. Heart size and pulmonary vascularity is normal. There is aortic valve prosthesis. Mediastinal sutures and mediastinal rita are noted from previous CABG. No gross bony abnormality. XR/XR chest 1V IMPRESSION: No acute cardiopulmonary process.
--- NOTE | ~2023-04-22 | CT_ITS ---
EXAMINATION: CT HEAD WITHOUT CONTRAST CLINICAL INFORMATION: Headache. Hypertension. Blurred vision. COMPARISON: MRI of the head January 18, 2022. CT head September 29, 2018 TECHNIQUE: Contiguous axial imaging was performed from the skull base to vertex without intravenous administration of contrast. Coronal and sagittal reformatted images are performed at the CT scanner. [This CT examination was performed using dose optimization techniques as appropriate, variously including the following: *Automated exposure control *Adjustment of mA and/or kV according to patient size (this includes techniques or standardized protocols for targeted exams where dose is matched to indication/reason for exam; i.e. extremities or head) *Use of iterative reconstruction technique] DLP: 618 mGy-cm. FINDINGS: There is no evidence of acute intracranial hemorrhage or territorial infarction. No abnormal mass-effect or midline shift is seen. Pabon to white matter differentiation is well preserved. No extra-axial fluid collections are identified. The ventricles are normal in size. There is no abnormal attenuation within the brain parenchyma. There is no osseous abnormality. The mastoid air cells and visualized portions of the paranasal sinuses are well-aerated. CT/CT head/brain wo IV con IMPRESSION: No acute intracranial pathology.
[2023-04-22 12:16] LABS: MANUAL DIFF FLAG NO
[2023-04-22] MEDS: 0.9 % Sodium Chloride 1,000 ML 999 ML IV (12:20)
[2023-04-22 12:21] LABS: Basophils Absolute Auto 0.1 X10*3/uL (0.0-0.2); Basophils Percent Auto 0.4 % (0-2); Eosinophils Absolute Auto 0.1 X10*3/uL (0.0-0.4); Eosinophils Percent Auto 0.9 % (0-4); Hematocrit 47.4 % (42.0-52.0); Hemoglobin 15.9 g/dl (14.0-18.0); Imm Gran Abs Auto 0.08 X10*3/uL (0.00-0.03); Imm Gran Pct Auto 0.7 % (0.0-0.4); Lymphocytes Absolute Auto 2.4 X10*3/uL (1.2-4.9); Lymphocytes Percent Auto 20.1 % (20-40); Mean Corpuscular HGB Conc 33.5 g/dl (31.0-36.0); Mean Corpuscular Hemoglobin 30.9 pg (27.0-33.0); Mean Platelet Volume 11.5 fL (9.4-12.4); Monocytes Absolute Auto 0.7 X10*3/uL (0.1-1.2); Monocytes Percent Auto 5.7 % (2-11); Neutrophils Absolute Auto 8.8 x10*3/uL (2.0-8.3); Neutrophils Percent Auto 72.2 % (45-73); Platelet Count 250 X10*3/uL (160-400); Red Blood Count 5.15 X10*6/uL (4.60-5.80); Red Cell Distribution Width 14.4 % (11.0-16.0); White Blood Count 12.1 X10*3/uL (4.8-10.8)
[2023-04-22 12:23] LABS: OBS Int Ctl Valid YES; OBS1 NEGATIVE (NEGATIVE)
--- NOTE | 2023-04-22 12:25 | ED.CHESTPAIN ---
HPI - Chest Pain General Chief Complaint: Chest Pain Stated Complaint: CP RAD DOWN L ARM PER EMS Time Seen by Provider: 04/22/23 11:19 Source: patient, EMS, RN notes reviewed and old records reviewed Mode of arrival: EMS History of Present Illness HPI narrative: 52-year-old male with a past medical history of obesity, hypertension, diabetes, sleep apnea, diverticulosis s/p sigmoid colectomy, anxiety, GERD, HLD, s/p mitral valve repair, presenting to the ED complaining of intermittent chest pain radiating down LUE x3-4 days also with nausea, vomiting, dysuria, abdominal pain, and brbpr. Reports mild SOB. Denies fever, chills, cough, diarrhea/constipation, hematuria. Takes ASA MD complaint: chest pain Related Data Home Medications Medication Instructions Recorded Confirmed aspirin 81 mg tablet,delayed 81 mg PO DAILY 12/28/19 02/14/23 release (Adult Low Dose Aspirin) atorvastatin 20 mg tablet 20 mg PO DAILY 12/28/19 02/14/23 gabapentin 300 mg capsule 600 mg PO BEDTIME 01/07/20 02/14/23 sertraline 50 mg tablet 50 mg PO DAILY 02/16/20 02/14/23 amlodipine 10 mg tablet 1 tab PO DAILY 01/25/22 02/14/23 cyclobenzaprine 10 mg tablet 20 mg PO BEDTIME 01/25/22 02/14/23 empagliflozin 10 mg tablet 10 mg PO DAILY 01/25/22 02/14/23 (Jardiance) sitagliptin phosphate 50 1 tab PO BID 01/25/22 02/14/23 mg-metformin 1,000 mg tablet (Janumet) melatonin 10 mg tablet 20 mg PO BEDTIME 02/14/23 02/14/23 Previous Rx's Medication Instructions Recorded benazepril 10 mg tablet 2 tab PO DAILY 60 days #120 tabs 01/28/22 omeprazole 20 mg capsule,delayed 1 cap PO BID #60 caps 02/15/23 release amoxicillin 875 mg-potassium 1 tab PO BID #20 tabs 03/06/23 clavulanate 125 mg tablet oxycodone 5 mg tablet 5 mg PO Q6H PRN pain #20 tabs 03/06/23 polyethylene glycol 3350 17 17 g PO DAILY #510 grams 03/06/23 gram/dose oral powder (Miralax) Allergies Allergy/AdvReac Type Severity Reaction Status Date / Time morphine [MORPHINE] Allergy Unknown HIVES, rash Verified 02/28/23 13:32 Review of Systems Review of Systems: Constitutional: No Fever, No Chills ENT/Mouth: No Ear Pain, No Nasal Congestion, No sore throat, No Rhinorrhea, No Swallowing Difficulty Cardiovascular: + Chest Pain, + SOB Respiratory: No Cough, No Sputum, No Wheezing Gastrointestinal: +Nausea, + Vomiting, No Diarrhea, No Constipation, + Abdominal pain, +brbpr Genitourinary: No Dysuria, No Urinary Frequency, No Hematuria,No Flank Pain Musculoskeletal: No joint pain, No Myalgias, No Joint Swelling Skin: No Skin Lesions, No rash Neuro: No Weakness, No Numbness, No Paresthesias Yes all other systems are reviewed and are negative Constitutional: Constitutional: Reports as per [facility] Past Medical History Attestation statement: The following information was validated with the patient. Source: old records reviewed Medical History Blurry vision Obesity Elevated blood pressure reading Hypertension, uncontrolled Renal insufficiency Sleep apnea Diabetes Lower GI bleed Diverticulosis Hematochezia Right ankle pain History of diverticulitis Mitral valve disease Anxiety GERD (gastroesophageal reflux disease) Constipation Hyperlipidemia Hypertension Surgical History History of colonoscopy History of mitral valve repair Status post Ammy procedure (10/21/19) H/O mitral valve repair Family History Family History Mother Diabetes mellitus Father Diabetes mellitus Social History Social History Household Members: Significant Other Housing: Apartment Are you a primary senior care assistant to a significant other at home: No Do you presently have visiting nurse or other home services: No Unable to assess alcohol history related to: Unable to respond Alcohol intake: current Alcohol intake frequency: holidays/special occasions only Alcohol type: beer and hard liquor Comment: PT SLEEPING Patient Tobacco Use Status: Never used Tobacco Smoked in Last 30 Days: No Second Hand Smoke Exposure: No Use of substances other than those prescribed or required for medical reasons: No Substance Use Type: Marijuana Advance Directives: Yes Advance Directives on File: Yes Advance Directives Date on File: 02/22/20 service: No Current occupational status: unemployed Physical Exam Vital Signs: Vital Signs: Last Vital Signs Temp 98.1 F 04/22/23 14:00 Pulse 84 04/22/23 16:00 Resp 18 04/22/23 16:00 BP 157/108 H 04/22/23 16:00 Pulse Ox 97 04/22/23 16:00 O2 Del Method Room Air 04/22/23 14:00 BMI result Body Mass Index 32.5 Const: General: cooperative, healthy appearing and no acute distress Orientation/consciousness: patient oriented x3 Limitations: no limitations HEENT: Head: Yes normal to inspection and Yes atraumatic Ears: hearing grossly normal bilaterally General nose exam: Normal external nose present Face and sinus: Yes normal facial exam Eyes: General: appearance normal, both eyes and all related structures EOM: EOMs intact bilaterally Neck: Neck: Yes normal visual inspection and Yes no meningeal signs Resp: Effort & Inspection: normal respiratory effort and no respiratory distress Auscultation: clear to auscultation bilaterally, no rales, no rhonchi and no wheezes Cardio: Rate: regular rate Heart sounds: S1 normal heart sound present and S2 normal heart sound present Peripheral pulses: Peripheral pulses 2+ throughout GI: Other: Old surgical scars noted Inspection: Yes normal to inspection Palpation (GI): Soft to palpation, Tenderness to palpation present (GI) (Diffusely) with no rebound tenderness, no guarding and not rigid Rectal Exam - Male: Yes Internal hemorrhoid(s) present (Nonthrombosed, no active bleeding. Nontender) : General: Yes no CVA tenderness Back/Spine/Pelvis: Back: no CVA tenderness Skin: Rashes: no rashes Wounds: no wounds Neuro: General: patient oriented x3, tone normal and no meningeal signs Cranial nerves: Yes CN's II-XII intact bilaterally Gait exam (Neuro): Normal gait present Extrem: General: Yes normal to inspection, Yes no pedal edema and Yes no calf tenderness Course Course Course Narrative: -1241--mild leukocytosis 12.1. chronic transaminitis. Labs otherwise reassuring. -occult stool negative -troponin negative -patient very anxious. Blood pressure elevated. Admits to taking antihypertensive this morning. Will give 0.1 mg clonidine and observe/re-evaluate -orthostatic vital signs negative XR chest 1V IMPRESSION: No acute cardiopulmonary process. CT abdomen pelvis w IV con IMPRESSION: No acute abnormality in the abdomen or pelvis. > 1615--on re-evaluation results discussed with patient. Blood pressure with mild improvement. Patient now reporting headache, blurry vision, lightheadedness/dizziness and difficulty ambulating > patient is ambulating in the ED with steady gait, no ataxia without assistance, however will obtain head CT for further eval. -1630--ED care transferred to [facility] Franco pending head CT and re-evaluation Reevaluation(s) Reevaluation #1: 1845- CT head shows FINDINGS: There is no evidence of acute intracranial hemorrhage or territorial infarction. No abnormal mass-effect or midline shift is seen. Pabon to white matter differentiation is well preserved. No extra-axial fluid collections are identified. The ventricles are normal in size. There is no abnormal attenuation within the brain parenchyma. There is no osseous abnormality. The mastoid air cells and visualized portions of the paranasal sinuses are well-aerated CT/CT head/brain wo IV con IMPRESSION: No acute intracranial pathology. Patient eating a sandwich and drinking cruz francesca. Up to bathroom with steady gait. Recommend following up outpatient with providers. Reviewed worrisome signs/symptoms with patient and when to seek additional care. Medications Administered Discontinued Medications Generic Name Dose Route Start Last Admin Trade Name Ino PRN Reason Stop Dose Admin Acetaminophen 650 mg 04/22/23 14:59 04/22/23 15:11 Acetaminophen 325 Mg Tablet PO 04/22/23 15:00 650 mg ONCE ONE Administration Clonidine HCl 0.1 mg 04/22/23 15:00 04/22/23 15:06 Clonidine Hcl 0.1 Mg Tablet PO 04/22/23 15:01 0.1 mg ONCE ONE Administration Protocol Fentanyl 25 mcg 04/22/23 12:28 04/22/23 12:41 Fentanyl Citrate/Pf 100 Mcg/2 Ml Vial IVPUSH 04/22/23 12:29 25 mcg ONCE ONE Administration Protocol Fentanyl 25 mcg 04/22/23 14:59 04/22/23 15:07 Fentanyl Citrate/Pf 100 Mcg/2 Ml Vial IVPUSH 04/22/23 15:00 25 mcg ONCE ONE Administration Protocol Sodium Chloride 1,000 mls @ 999 mls/hr 04/22/23 12:15 04/22/23 15:10 Ns IV 04/22/23 13:15 Infused .Q1H1M SHARIF Infusion Iohexol 100 ml 04/22/23 14:07 04/22/23 14:08 Iohexol 350 Mg/Ml 100 Ml Infus..Btl IV 04/22/23 14:08 85 ml ONCE ONE Administration Lorazepam 1 mg 04/22/23 16:13 04/22/23 16:24 Lorazepam 1 Mg Tablet PO 04/22/23 16:14 1 mg ONCE ONE Administration Meclizine HCl 25 mg 04/22/23 15:41 04/22/23 16:24 Meclizine Hcl 25 Mg Tablet PO 04/22/23 15:42 25 mg ONCE ONE Administration Ondansetron HCl 4 mg 04/22/23 15:41 04/22/23 16:25 Ondansetron Hcl 4 Mg/2 Ml Vial IVPUSH 04/22/23 15:42 4 mg ONCE ONE Administration Medical Decision Making Medical Decision Making MDM Narrative: 52-year-old male with a past medical history of obesity, hypertension, diabetes, sleep apnea, diverticulosis s/p sigmoid colectomy, anxiety, GERD, HLD, s/p mitral valve repair, presenting to the ED complaining of intermittent chest pain radiating down LUE x3-4 days also with nausea, vomiting, dysuria, abdominal pain, and brbpr. Reports mild SOB. On exam hypertensive, NAD, nontoxic appearing, lungs CTA, abdomen soft diffusely tender, no rebound or guarding. Brown stool appreciated on rectal with internal hemorrhoid without active bleeding or thrombosis. Concern for ACS vs intra-abdominal pathology including diverticulitis/appendicitis or cholecystitis/lithiasis vs GI bleed. Symptoms atypical for PE/DVT. Plan: EKG, labs, UA, occult stool, CXR, CT AP, orthostatics, IVF Please refer to course for remaining clinical decision making, interpretation of labs/imaging results, and discussions with consultants and/or family members. Differential Diagnosis Differential Diagnoses: The differential diagnosis associated with the presentation includes As above Admission/Observation Consideration of admission/observation: Escalation of care including admission/observation considered Lab Data [facility] Lab Attestation statement: I reviewed the patient's lab results. 04/22/23 12:11 01/22/24 12:11 Labs: Lab Results 04/22/23 04/22/23 04/22/23 Range/Units 12:02 12:08 12:11 WBC 12.1 H (4.8-10.8) X10*3/uL RBC 5.15 (4.60-5.80) X10*6/uL Hgb 15.9 (14.0-18.0) g/dl Hct 47.4 (42.0-52.0) % MCV 92.0 (80.0-98.0) fL MCH 30.9 (27.0-33.0) pg MCHC 33.5 (31.0-36.0) g/dl RDW 14.4 (11.0-16.0) % Plt Count 250 (160-400) X10*3/uL MPV 11.5 (9.4-12.4) fL Immature Gran % (Auto) 0.7 H (0.0-0.4) % Neut % (Auto) 72.2 (45-73) % Lymph % (Auto) 20.1 (20-40) % [place] % (Auto) 5.7 (2-11) % Eos % (Auto) 0.9 (0-4) % Baso % (Auto) 0.4 (0-2) % Lymph # (Auto) 2.4 (1.2-4.9) X10*3/uL [place] # (Auto) 0.7 (0.1-1.2) X10*3/uL Eos # (Auto) 0.1 (0.0-0.4) X10*3/uL Baso # (Auto) 0.1 (0.0-0.2) X10*3/uL Abs Immat Gran (auto) 0.08 H (0.00-0.03) X10*3/uL Absolute Neuts (auto) 8.8 H (2.0-8.3) x10*3/uL Absolute Nucleated RBC 0.000 (0.0-0.012) X10*3/uL Nucleated RBC % (auto) 0.0 (0.0-0.2) /100WBC Sodium 141 (135-145) mmol/L Potassium 3.9 (3.3-5.1) mmol/L Chloride 105 (96-108) mmol/L Carbon Dioxide 25 (22-29) mmol/L Anion Gap 15 (12-20) BUN 11 (9-16) mg/dL Creatinine 1.30 (0.5-1.4) mg/dL Estim Creat Clear Calc 79.1 Estimated GFR 58 Random Glucose 127 H (60-115) mg/dL Calcium 9.0 (8.4-10.2) mg/dL Magnesium 1.8 (1.6-2.6) mg/dL Total Bilirubin 0.4 (0.0-1.0) mg/dL AST 27 (5-37) U/L ALT 51 H (0-40) U/L Alkaline Phosphatase 37 L (39-117) U/L Troponin I High Sens < 2.7 (<3.5-35.0) ng/L Total Protein 7.2 (6.5-8.0) g/dL Albumin 3.7 (3.5-5.0) g/dL Lipase 20 (8-78) U/L Stool Occult Blood NEGATIVE (NEGATIVE) COVID-19 (CLAIRE) Negative (Negative) COVID-19 Clin Com See Note Influenza Type A (HANY) Negative (Negative) Influenza Type B (HANY) Negative (Negative) Influenza A & B Note See Note Independent Interpretation I performed an independent interpretation of an: EKG (My interpretation EKG normal sinus rhythm rate of 100. QRS 104. QTC 508. Incomplete right bundle-branch block now present when compared to prior. No STEMI ) Radiology Impression Discussion of test interpretation with radiology: I have reviewed the radiologist's reading. Independent Historian Clinical information obtained from an independent historian. History obtained from or confirmed by: EMS External Record Review External record reviewed: Inpatient record, Office record, Outpatient record, Prior outpatient labs, Prior outpatient radiology, Primary care record and Outside ED record Tests considered The following testing was considered but not selected: As above Chronic Conditions Patient?s care impacted by: Diabetes and Hypertension Discharge Plan Discharge Clinical Impression: Atypical chest pain, HTN (hypertension), Abdominal pain, Nausea & vomiting, Lightheadedness Patient Disposition: Home, Self-Care Instructions: Chest Pain (ED), Abdominal Pain (ED), Hypertension (ED) Additional Instructions: Your lab work, CT scans, EKG reassuring. You may need outpatient testing additionally. You can follow-up with her primary care doctor for this. Please return for any worsening symptoms Prescriptions: No Action sertraline 50 mg Tablet 50 mg PO DAILY gabapentin 300 mg Capsule 600 mg PO BEDTIME cyclobenzaprine 10 mg Tablet 20 mg PO BEDTIME amlodipine 10 mg tablet 1 tab PO DAILY Janumet 50-1,000 mg Tablet 1 tab PO BID Jardiance 10 mg Tablet 10 mg PO DAILY benazepril 10 mg tablet 2 tab PO DAILY 60 Days Qty: 120 1RF melatonin 10 mg Tablet 20 mg PO BEDTIME omeprazole 20 mg capsule,delayed release(DR/EC) 1 cap PO BID Qty: 60 0RF amoxicillin-pot clavulanate 875-125 mg tablet 1 tab PO BID Qty: 20 0RF polyethylene glycol 3350 [Miralax] 17 gram/dose powder 17 g PO DAILY Qty: 510 0RF oxycodone 5 mg tablet 5 mg PO Q6H PRN (Reason: pain) Qty: 20 0RF Rx Instructions: Partial Fill upon patient request. atorvastatin 20 mg tablet 20 mg PO DAILY aspirin [Adult Low Dose Aspirin] 81 mg tablet,delayed release (DR/EC) 81 mg PO DAILY Referrals: Daniel Cisneros MD [Primary Care Provider] - 1 week
[2023-04-22 12:36] LABS: COVID-19 Test Negative (Negative); IDNOW Serial# 08D9AD1C; IDNOW Serial# 9DB6401D; Influenza A Negative (Negative); Influenza B2 Negative (Negative)
[2023-04-22 12:37] LABS: Alanine Aminotransferase 51 U/L (0-40); Albumin Level 3.7 g/dL (3.5-5.0); Alkaline Phosphatase 37 U/L (39-117); Anion Gap 15 (12-20); Aspartate Amino Transferase 27 U/L (5-37); Bilirubin Total 0.4 mg/dL (0.0-1.0); Blood Urea Nitrogen 11 mg/dL (9-16); Carbon Dioxide 25 mmol/L (22-29); Chloride 105 mmol/L (96-108); Creatinine Clr Calc Pharmacy 79.1; Estimated Glomerular Filt Rate 58; Glucose Random 127 mg/dL (60-115); Lipase 20 U/L (8-78); Magnesium 1.8 mg/dL (1.6-2.6); Potassium 3.9 mmol/L (3.3-5.1); Sodium 141 mmol/L (135-145); Total Protein 7.2 g/dL (6.5-8.0)
[2023-04-22] MEDS: fentaNYL citrate/PF 100 MCG/2 ML VIAL 25 MCG IVPUSH ×2 (12:41→15:07)
[2023-04-22 12:48] LABS: Troponin-I High Sensitivity < 2.7 ng/L (<3.5-35.0)
[2023-04-22] MEDS: iohexoL 350 MG/ML 100 ML INFUS..BTL IV (14:08)
--- NOTE | 2023-04-22 14:55 | PC.NURSE ---
BP elevated provider aware
[2023-04-22] MEDS: cloNIDine HCL 0.1 MG TABLET PO (15:06)
[2023-04-22] MEDS: Acetaminophen 325 MG TABLET 650 MG PO (15:11)
[2023-04-22] MEDS: Meclizine HCl 25 MG TABLET PO (16:24)
[2023-04-22] MEDS: LORazepam 1 MG TABLET PO (16:24)
[2023-04-22] MEDS: ondansetron HCL 4 MG/2 ML VIAL IVPUSH (16:25)
--- NOTE | 2023-04-22 17:48 | PC.NURSE ---
Reports improved chest pain, nsr on monitor, ambulating to bathroom with steady gait
== END 2023-04-22 19:01 | disposition home or self-care (01) ==
PROVIDERS: Physician Assistant; Emergency Provider Emergency Medicine; PCP Internal Medicine
DX: R07.89 Other chest pain (principal); I10 Essential (primary) hypertension; R10.13 Epigastric pain; R11.2 Nausea with vomiting, unspecified; R42 Dizziness and giddiness; K64.8 Other hemorrhoids; R06.02 Shortness of breath; R51.9 Headache, unspecified; Z11.52 Encounter for screening for COVID-19; E11.9 Type 2 diabetes mellitus without complications; E78.5 Hyperlipidemia, unspecified; Z95.2 Presence of prosthetic heart valve; Z79.82 Long term (current) use of aspirin; Z79.02 Long term (current) use of antithrombotics/antiplatelets; Z79.899 Other long term (current) drug therapy
CPT/HCPCS: 36415; 70450; 71045; 74177; 80053; 82272; 83690; 83735; 84484; 85025; 87502; 87635; 93005; 96361; 96374; 96375; 99285; J2405; J3010; Q9967

== ENCOUNTER → 2023-04-22 11:53 | Outpatient (BNV) | payer OTHER, SELFPAY | PROVIDERS: Emergency Provider Emergency Medicine; PCP Internal Medicine; Visit Provider Internal Medicine Cardiovascular Disease | DX: I45.81 Long QT syndrome (principal) | CPT/HCPCS: 93010 ==

== ENCOUNTER 2023-07-19 11:59 | Emergency (ER) | payer OTHER, SELFPAY ==
--- NOTE | ~2023-07-19 | XR_ITS ---
EXAMINATION: PA CHEST, XR RIBS, LEFT CLINICAL INFORMATION: Left-sided and lower anterior chest pain COMPARISON: 04/22/2023 chest radiograph TECHNIQUE: PA chest and 3 views of the left ribs were obtained. FINDINGS: Median sternotomy wires, surgical clips and valve replacement again seen. Heart and mediastinum within normal limits. No vascular congestion, consolidations or effusions. No pneumothorax. Bony structures appear intact. No displaced rib fractures are seen. XR/XR ribs LT min 3V w CXR1V IMPRESSION: No acute cardiopulmonary disease or acute bony pathology.
--- NOTE | 2023-07-19 12:02 | ECG_ITS ---
Test Reason : CHEST TIGHTNESS Blood Pressure : / mmHG Vent. Rate : 112 BPM Atrial Rate : 112 BPM P-R Int : 150 ms QRS Dur : 094 ms QT Int : 348 ms P-R-T Axes : 049 049 054 degrees QTc Int : 475 ms Sinus tachycardia Nonspecific T wave abnormality Abnormal ECG When compared with ECG of 22-APR-2023 11:53, Nonspecific T wave abnormality now evident in Inferior leads Nonspecific T wave abnormality no longer evident in Anterior leads Nonspecific T wave abnormality now evident in Lateral leads Referred By: Thomas Coelho Electronically Signed By:TIFFANIE CÁRDENAS
[2023-07-19 12:04] VITALS: BP 188/128; PULSE 115; O2SAT 96
[2023-07-19 12:06] VITALS: BP 157/113; PULSE 119; RESP 18; TEMP 36.9; O2SAT 94; BMI 34.7
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
[2023-07-19 12:17] LABS: MANUAL DIFF FLAG NO
[2023-07-19 12:18] LABS: Basophils Absolute Auto 0.1 X10*3/uL (0.0-0.2); Basophils Percent Auto 0.3 % (0-2); Eosinophils Absolute Auto 0.1 X10*3/uL (0.0-0.4); Eosinophils Percent Auto 0.3 % (0-4); Hematocrit 50.5 % (42.0-52.0); Hemoglobin 16.8 g/dl (14.0-18.0); Imm Gran Abs Auto 0.11 X10*3/uL (0.00-0.03); Imm Gran Pct Auto 0.7 % (0.0-0.4); Lymphocytes Absolute Auto 2.1 X10*3/uL (1.2-4.9); Lymphocytes Percent Auto 12.7 % (20-40); Mean Corpuscular HGB Conc 33.3 g/dl (31.0-36.0); Mean Corpuscular Hemoglobin 29.6 pg (27.0-33.0); Mean Corpuscular Volume 89.1 fL (80.0-98.0); Mean Platelet Volume 11.2 fL (9.4-12.4); Monocytes Absolute Auto 0.9 X10*3/uL (0.1-1.2); Monocytes Percent Auto 5.6 % (2-11); Neutrophils Absolute Auto 13.2 x10*3/uL (2.0-8.3); Neutrophils Percent Auto 80.4 % (45-73); Platelet Count 217 X10*3/uL (160-400); Red Blood Count 5.67 X10*6/uL (4.60-5.80); Red Cell Distribution Width 14.6 % (11.0-16.0); White Blood Count 16.4 X10*3/uL (4.8-10.8)
[2023-07-19 12:48] LABS: Alanine Aminotransferase 47 U/L (0-40); Albumin Level 4.4 g/dL (3.5-5.0); Alkaline Phosphatase 39 U/L (39-117); Anion Gap 14 (12-20); Aspartate Amino Transferase 24 U/L (5-37); Blood Urea Nitrogen 17 mg/dL (9-16); Calcium 9.2 mg/dL (8.4-10.2); Carbon Dioxide 22 mmol/L (22-29); Chloride 106 mmol/L (96-108); Creatinine Clr Calc Pharmacy 72.1; Estimated Glomerular Filt Rate 56; Glucose Random 121 mg/dL (60-115); Lipase 23 U/L (8-78); Potassium 3.4 mmol/L (3.3-5.1); Sodium 139 mmol/L (135-145); Total Protein 7.9 g/dL (6.5-8.0); Troponin-I High Sensitivity < 2.7 ng/L (<3.5-35.0)
[2023-07-19 13:18] LABS: Bilirubin Total 0.5 mg/dL (0.0-1.0)
[2023-07-19] MEDS: Ibuprofen 400 MG TABLET PO (18:19)
[2023-07-19] MEDS: Ondansetron ODT 4 MG TAB.RAPDIS TRANSLINGU (18:20)
[2023-07-19] MEDS: Cyclobenzaprine HCl 10 MG TABLET PO (18:20)
[2023-07-19 18:28] VITALS: BP 152/101; PULSE 100; RESP 18; TEMP 36.4; O2SAT 96
[2023-07-19] MEDS: Diphth,Pertus(ACell),Tet Adult 0.5 ML SYRINGE IM (18:30)
== END 2023-07-19 18:33 | disposition home or self-care (01) ==
PROVIDERS: Physician Assistant; Emergency Provider Emergency Medicine; PCP Internal Medicine
DX: R07.89 Other chest pain (principal); S40.812A Abrasion of left upper arm, initial encounter; S40.811A Abrasion of right upper arm, initial encounter; S80.812A Abrasion, left lower leg, initial encounter; S80.811A Abrasion, right lower leg, initial encounter; I10 Essential (primary) hypertension; E11.9 Type 2 diabetes mellitus without complications; V89.2XXA Person injured in unspecified motor-vehicle accident, traffic, initial encounter; Y93.9 Activity, unspecified; Y92.410 Unspecified street and highway as the place of occurrence of the external cause; Y99.9 Unspecified external cause status
CPT/HCPCS: 36415; 71101; 80053; 83690; 84484; 85025; 90471; 90715; 93005; 99283; 99284

== ENCOUNTER → 2023-07-19 12:02 | Outpatient (BNV) | payer OTHER, SELFPAY | PROVIDERS: PCP Internal Medicine; Visit Provider Internal Medicine | DX: R94.31 Abnormal electrocardiogram [ECG] [EKG] (principal) | CPT/HCPCS: 93010 ==

== ENCOUNTER 2023-08-07 16:18 | Emergency (ER) | payer OTHER, SELFPAY ==
--- NOTE | ~2023-08-07 | XR_ITS ---
EXAMINATION: XR CHEST CLINICAL INFORMATION: Cough. COMPARISON: Chest radiograph 07/19/2023. TECHNIQUE: Frontal view of the chest was obtained. FINDINGS: Stable prominence of the cardiomediastinal silhouette. Midline sternotomy wires and mitral valve replacement redemonstrated. Slightly increased bronchovascular markings compared to recent prior. No focal consolidation, pleural effusion or pneumothorax. No acute osseous findings. XR/XR chest 1V IMPRESSION: Slightly increased bronchovascular markings that could indicate pulmonary edema or small airways disease. No consolidation or pleural effusion.
--- NOTE | ~2023-08-07 | CT_ITS ---
EXAMINATION: CT ABDOMEN AND PELVIS WITHOUT AND WITH CONTRAST CLINICAL INFORMATION: GI bleed and diffuse abdominal pain COMPARISON: CT abdomen pelvis 04/22/2023 TECHNIQUE: Multidetector volumetric imaging was performed from the superior aspect of the liver through the pubic symphysis with intravenous contrast. A total of 85 mL of Omnipaque 350 was utilized for the study. 2 sets of post contrast imaging were obtained one during the portal venous phase and another after a 2 minute delay to look for extravasation of contrast into bowel lumen. Sagittal and coronal reformatted images were obtained on the technologist's workstation. This CT examination was performed using dose optimization techniques as appropriate, variously including the following: *Automated exposure control *Adjustment of mA and/or kV according to patient size (this includes techniques or standardized protocols for targeted exams where dose is matched to indication/reason for exam; i.e. extremities or head) *Use of iterative reconstruction technique DLP: 1894 mGy-cm FINDINGS: LUNG BASES: The visualized lung bases are unremarkable. LIVER, GALLBLADDER, AND BILIARY TREE: The liver is normal in size, shape, and attenuation. No focal hepatic lesion or biliary ductal dilatation is present. The gallbladder is unremarkable with no evidence of radiopaque gallstones, gallbladder wall thickening, or obvious pericholecystic inflammatory changes. PANCREAS: Unremarkable. SPLEEN: Unremarkable. ADRENAL GLANDS: Unremarkable. KIDNEYS AND URETERS: The kidneys are normal in size, shape, and attenuation. No hydronephrosis, hydroureter, or calculi seen. No perinephric stranding. BLADDER: Small soft tissue density seen at the superior aspect of the bladder at the attachment of the trachea is, unchanged from prior dating back to 02/15/2020. GASTROINTESTINAL TRACT: Status post partial sigmoid colectomy. Few scattered diverticula are present in the colon without diverticulitis. There is no extravasation of contrast into bowel lumen to suggest active GI bleeding. The small and large bowel are otherwise unremarkable. The appendix is unremarkable. ABDOMINAL WALL: No significant hernia is appreciated. Tiny periumbilical hernia seen containing only fat. LYMPH NODES: No retroperitoneal lymphadenopathy. VASCULAR: Unremarkable. PELVIC VISCERA: Unremarkable. OSSEOUS STRUCTURES: Unremarkable. CT/CT gi bleed abd pel wo/w IVcon IMPRESSION: 1. A cause for the patient's GI bleeding has not been found. 2. Incidental note made of partial sigmoid colectomy, colonic diverticulosis without diverticulitis and other findings described above. Fleischner guidelines were followed.
[2023-08-07 16:30] VITALS: BP 148/106; BP 169/124; PULSE 100; PULSE 108; RESP 18; TEMP 37; O2SAT 96; O2SAT 97; BMI 35.0
--- NOTE | 2023-08-07 16:36 | ECG_ITS ---
Test Reason : DIZZINESS Blood Pressure : / mmHG Vent. Rate : 101 BPM Atrial Rate : 101 BPM P-R Int : 150 ms QRS Dur : 096 ms QT Int : 374 ms P-R-T Axes : 033 041 054 degrees QTc Int : 484 ms Sinus tachycardia Otherwise normal ECG When compared with ECG of 19-JUL-2023 12:04, Nonspecific T wave abnormality no longer evident in Inferior leads Nonspecific T wave abnormality no longer evident in Lateral leads Referred By: Tanvi Brooks Electronically Signed By:Chino Linton
[2023-08-07 16:39] VITALS: BP 152/100; PULSE 99
[2023-08-07 16:41] VITALS: BP 160/117; PULSE 112
[2023-08-07 16:43] VITALS: BP 151/105; PULSE 104
--- NOTE | 2023-08-07 16:47 | ED.GENADULT ---
HPI - General Adult General Chief complaint: General Medical Stated complaint: ABD PAIN X 2 WEEKS NAUSEA VOMITING Time Seen by Provider: 08/07/23 16:26 Source: patient Mode of arrival: ambulatory Limitations: no limitations History of Present Illness HPI narrative: Patient comes to the emergency room complaining of upper respiratory infection that has been present for about weeks and also complaining of GI bleed. Patient states that he has noticed that when he moves his bowels, sometimes with diarrhea, he has bright red blood per rectum. Patient states that lately he has been feeling lightheaded, mild shortness of breath, no chest pain. Patient denies being on blood thinners. No recent trauma. Denies rectal pain, complaining of diffuse abdominal cramping Related Data Home Medications ?Medication ?Instructions ?Recorded ?Confirmed aspirin 81 mg tablet,delayed 81 mg PO DAILY 12/28/19 07/10/23 release (Adult Low Dose Aspirin) atorvastatin 20 mg tablet 20 mg PO DAILY 12/28/19 07/10/23 gabapentin 300 mg capsule 300 mg PO BID 01/07/20 07/10/23 sertraline 50 mg tablet 50 mg PO DAILY 02/16/20 07/10/23 amlodipine 10 mg tablet 1 tab PO DAILY 01/25/22 07/10/23 cyclobenzaprine 10 mg tablet 20 mg PO BEDTIME 01/25/22 07/10/23 empagliflozin 10 mg tablet 10 mg PO DAILY 01/25/22 07/10/23 (Jardiance) sitagliptin phosphate 50 1 tab PO BID 01/25/22 07/10/23 mg-metformin 1,000 mg tablet (Janumet) melatonin 10 mg tablet 20 mg PO BEDTIME 02/14/23 07/10/23 carvedilol 12.5 mg tablet 25 mg PO BID 07/10/23 07/10/23 dicyclomine 20 mg tablet 20 mg PO QID 07/10/23 07/10/23 insulin glargine 100 unit/mL (3 10 unit subcut BEDTIME 07/10/23 07/10/23 mL) subcutaneous pen (Lantus Solostar U-100 Insulin) oxcarbazepine 300 mg tablet 300 mg PO BID 07/10/23 07/10/23 trazodone 50 mg tablet 50 - 100 mg PO BEDTIME PRN insomnia 07/10/23 07/10/23 Previous Rx's ?Medication ?Instructions ?Recorded benazepril 10 mg tablet 2 tab PO DAILY 60 days #120 tabs 01/28/22 omeprazole 20 mg capsule,delayed 1 cap PO BID #60 caps 02/15/23 release amoxicillin 875 mg-potassium 1 tab PO BID #20 tabs 03/06/23 clavulanate 125 mg tablet oxycodone 5 mg tablet 5 mg PO Q6H PRN pain #20 tabs 03/06/23 polyethylene glycol 3350 17 17 g PO DAILY #510 grams 03/06/23 gram/dose oral powder (Miralax) cyclobenzaprine 10 mg tablet 10 mg PO TID PRN muscle spasm #7 07/19/23 tabs ibuprofen 600 mg tablet 600 mg PO Q8H PRN fever or pain 07/19/23 #20 tabs Allergies Allergy/AdvReac Type Severity Reaction Status Date / Time morphine [MORPHINE] Allergy Unknown HIVES, rash Verified 08/07/23 16:32 Review of Systems Review of Systems: Constitutional : No Weight loss, No Fever, No Chills, No Night Sweats, No Fatigue, No Malaise ENT/Mouth : No Hearing loss, No Ear Pain, No Nasal Congestion, No Sinus Pain, No Hoarseness, No sore throat, No Rhinorrhea, No Swallowing Difficulty Eyes: No Eye Pain, No Swelling, No Redness, No Foreign Body, No Discharge, No Vision Changes Cardiovascular : No Chest Pain, No SOB, mild Dyspnea on Exertion, No Orthopnea, No Edema, No Palpitations, complaining of lightheadedness with standing Respiratory : No Cough, No Sputum, No Wheezing, No Smoke Exposure, No Dyspnea Gastrointestinal : Complaining of nausea vomiting and bloody diarrhea, No Constipation, complaining of diffuse abdominal cramping and bright red blood per rectum Genitourinary : no irregular bleeding, No Dysuria, No Urinary Frequency, No Hematuria, No Urinary Incontinence, No Urgency, No Flank Pain, No Urinary Flow Changes, No Hesitancy Musculoskeletal : No joint pain, No Myalgias, No Joint Swelling Skin : No Skin Lesions, No rash Neuro : No Weakness, No Numbness, No Paresthesias, No Loss of Consciousness, no headache Psych : No Anxiety/Panic, No Depression, No SI/HI/AH/VH, No Social Issues, Heme/Lymph: No Bruising, No Bleeding,No Lymphadenopathy Endocrine : No Polyuria, No Polydipsia, No Temperature Intolerance [facility] Past Medical History Medical History Blurry vision Obesity Elevated blood pressure reading Hypertension, uncontrolled Renal insufficiency Sleep apnea Diabetes Lower GI bleed Diverticulosis Hematochezia Right ankle pain History of diverticulitis Mitral valve disease Anxiety GERD (gastroesophageal reflux disease) Constipation Hyperlipidemia Hypertension Surgical History (Updated 07/10/23 @ 09:55 by Mei Alcaraz RN) History of colostomy reversal History of esophagogastroduodenoscopy (EGD) History of colonoscopy Status post Ammy procedure (10/21/19) H/O mitral valve repair Family History Family History Mother Diabetes mellitus Father Diabetes mellitus Social History Social History Household Members: Significant Other Housing: Apartment Are you a primary career development specialist to a significant other at home: No Do you presently have visiting nurse or other home services: No Unable to assess alcohol history related to: Unable to respond Alcohol intake: current Alcohol intake frequency: holidays/special occasions only Alcohol type: beer and hard liquor Comment: PT SLEEPING Patient Tobacco Use Status: Never used Tobacco Smoked in Last 30 Days: No Second Hand Smoke Exposure: No Substance Use Type: Marijuana Advance Directives: Yes Advance Directives on File: Yes Advance Directives Date on File: 02/22/20 service: No Current occupational status: unemployed Physical Exam ED Vital Signs: Vital Signs - 24 hr 08/07/23 16:30 08/07/23 16:39 08/07/23 16:41 Temperature 98.6 F Pulse Rate 100 99 112 H Respiratory Rate 18 Blood Pressure 148/106 H 152/100 H 160/117 H Pulse Oximetry 97 Oxygen Delivery Method Room Air 08/07/23 16:43 08/07/23 21:22 Temperature 98.3 F Pulse Rate 104 H 92 Respiratory Rate 16 Blood Pressure 151/105 H 149/111 H Pulse Oximetry 96 Oxygen Delivery Method Room Air BMI result Body Mass Index 35.0 Const Other: Appearance: Alert. Oriented X3. No acute distress. Eyes: Pupils equal, round and reactive to light. ENT: Pharynx normal. Neck: Normal inspection. Neck supple. No lymph nodes noted. No crepitus CVS: Normal heart rate and rhythm. Pulses normal. Normal S1 and S2 Respiratory: No respiratory distress. Breath sounds normal. No Wheezing. No rales Abdomen: Soft and nontender. No rigidity. No distention. On digital rectal exam: Maroon stool per rectum, no external hemorrhoids Skin: Skin warm and dry. Normal skin color. Normal skin turgor. Extremities: No lower extremity edema. No Lacerations. No Rash Neuro: Oriented X 3. No motor deficit. No sensory deficit. Moving all extremities. No slurred speech. CN 2 through 12 grossly intact Psych: calm, cooperative, anxious Course Course Course Narrative: -all of patient's labs pending -CT scan pending Medications Administered Discontinued Medications Generic Name Dose Route Start Last Admin Trade Name Freq PRN Reason Stop Dose Admin Iohexol 100 ml 08/07/23 18:46 08/07/23 18:46 Iohexol 350 Mg/Ml 100 Ml Infus..Btl IV 08/07/23 18:47 85 ml ONCE ONE Administration Medical Decision Making Medical Decision Making [facility] Narrative: -my interpretation of EKG: Normal sinus rhythm, heart rate 101, no ST segment depression or elevation, no T-wave inversion, QTC 484 -orthostatic vital signs are negative My interpretation of CT scan: No obvious abnormality or source of rectal bleeding No SBO -my interpretation of labs: Patient has chronic leukocytosis, at baseline, chemistry within normal limits, lactic acid normal, LFTs normal, troponin negative, lipase normal, PT INR normal -I discussed with the patient that likely the cough is secondary to bronchitis viral process, at this time antibiotics not indicated. -patient's rectal bleeding likely secondary to internal hemorrhoids. Patient has not had bowel movements or rectal bleeding in the ED. -I discussed with the patient also that if he continues having intermittent dizziness as he described earlier before, patient would benefit from a Holter monitor evaluation Differential Diagnosis Differential Diagnoses: The differential diagnosis associated with the presentation includes (Viral syndrome, ACS, bronchitis, pneumonia, upper/lower GI bleed) Admission/Observation Consideration of admission/observation: Escalation of care including admission/observation considered (Given patient's multiple complaints, admission considered) Consult Healthcare Provider Management of the patient was discussed with: Hospitalist Lab Data [facility] Lab Attestation statement: I reviewed the patient's lab results. 08/07/23 17:20 08/07/23 17:20 Labs: Lab Results 08/07/23 08/07/23 08/07/23 Range/Units 17:20 17:51 21:37 WBC 14.3 H (4.8-10.8) X10*3/uL RBC 5.40 (4.60-5.80) X10*6/uL Hgb 16.1 (14.0-18.0) g/dl Hct 48.2 (42.0-52.0) % MCV 89.3 (80.0-98.0) fL MCH 29.8 (27.0-33.0) pg MCHC 33.4 (31.0-36.0) g/dl RDW 15.3 (11.0-16.0) % Plt Count 310 D (160-400) X10*3/uL MPV 10.6 (9.4-12.4) fL Immature Gran % (Auto) 0.8 H (0.0-0.4) % Neut % (Auto) 72.1 (45-73) % Lymph % (Auto) 20.1 (20-40) % [facility] % (Auto) 5.8 (2-11) % Eos % (Auto) 0.7 (0-4) % Baso % (Auto) 0.5 (0-2) % Lymph # (Auto) 2.9 (1.2-4.9) X10*3/uL [facility] # (Auto) 0.8 (0.1-1.2) X10*3/uL Eos # (Auto) 0.1 (0.0-0.4) X10*3/uL Baso # (Auto) 0.1 (0.0-0.2) X10*3/uL Abs Immat Gran (auto) 0.11 H (0.00-0.03) X10*3/uL Absolute Neuts (auto) 10.3 H (2.0-8.3) x10*3/uL Absolute Nucleated RBC 0.000 (0.0-0.012) X10*3/uL Nucleated RBC % (auto) 0.0 (0.0-0.2) /100WBC PT 12.2 (11.1-13.3) SEC INR 1.0 (0.9-1.1) Sodium 142 (135-145) mmol/L Potassium 3.4 (3.3-5.1) mmol/L Chloride 107 (96-108) mmol/L Carbon Dioxide 23 (22-29) mmol/L Anion Gap 15 (12-20) BUN 13 (9-16) mg/dL Creatinine 1.19 (0.5-1.4) mg/dL Estim Creat Clear Calc 81.5 Estimated GFR > 60 Random Glucose 93 (60-115) mg/dL Lactic Acid 1.6 (0.5-2.0) mmol/L Calcium 9.2 (8.4-10.2) mg/dL Magnesium 1.9 (1.6-2.6) mg/dL Total Bilirubin 0.4 (0.0-1.0) mg/dL Direct Bilirubin 0.2 (0.0-0.5) mg/dL AST 31 (5-37) U/L ALT 52 H (0-40) U/L Alkaline Phosphatase 33 L (39-117) U/L Troponin I High Sens < 2.7 (<3.5-35.0) ng/L Total Protein 7.9 (6.5-8.0) g/dL Albumin 4.3 (3.5-5.0) g/dL Lipase 23 (8-78) U/L Urine Color Yellow Urine Appearance Clear Urine pH 5.5 (5.0-9.0) Ur Specific [place] >= 1.030 H (1.005-1.025) Urine Protein Trace (Neg-Trace) mg/dL Urine Glucose (UA) >=1000 H (Negative) mg/dL Urine Ketones Negative (Negative) mg/dL Urine Blood Negative (Negative) Urine Nitrite Negative (Negative) Ur Leukocyte Esterase Negative (Negative) Urine RBC 0-2 (0-2) /HPF Urine WBC 0-5 (0-5) /HPF Ur Squamous Epith Cells 0-2 (0-2) /HPF Urine Bacteria None Seen (None Seen) Hyaline Casts 0-2 (0-2) /LPF Stool Occult Blood NEGATIVE (NEGATIVE) COVID-19 (CLAIRE) Negative (Negative) COVID-19 Clin Com See Note Influenza Type A (HANY) Negative (Negative) Influenza Type B (HANY) Negative (Negative) Influenza A & B Note See Note Blood Type A Positive Antibody Screen NEGATIVE Independent Interpretation I performed an independent interpretation of an: CT Scan Radiology Impression Discussion of test interpretation with radiology: I have reviewed the radiologist's reading. Radiologist Impression: FINDINGS: LUNG BASES: The visualized lung bases are unremarkable. LIVER, GALLBLADDER, AND BILIARY TREE: The liver is normal in size, shape, and attenuation. No focal hepatic lesion or biliary ductal dilatation is present. The gallbladder is unremarkable with no evidence of radiopaque gallstones, gallbladder wall thickening, or obvious pericholecystic inflammatory changes. PANCREAS: Unremarkable. SPLEEN: Unremarkable. ADRENAL GLANDS: Unremarkable. KIDNEYS AND URETERS: The kidneys are normal in size, shape, and attenuation. No hydronephrosis, hydroureter, or calculi seen. No perinephric stranding. BLADDER: Small soft tissue density seen at the superior aspect of the bladder at the attachment of the trachea is, unchanged from prior dating back to 02/15/2020. GASTROINTESTINAL TRACT: Status post partial sigmoid colectomy. Few scattered diverticula are present in the colon without diverticulitis. There is no extravasation of contrast into bowel lumen to suggest active GI bleeding. The small and large bowel are otherwise unremarkable. The appendix is unremarkable. ABDOMINAL WALL: No significant hernia is appreciated. Tiny periumbilical hernia seen containing only fat. LYMPH NODES: No retroperitoneal lymphadenopathy. VASCULAR: Unremarkable. PELVIC VISCERA: Unremarkable. OSSEOUS STRUCTURES: Unremarkable. CT/CT gi bleed abd pel wo/w IVcon IMPRESSION: 1. A cause for the patient's GI bleeding has not been found. 2. Incidental note made of partial sigmoid colectomy, colonic diverticulosis without diverticulitis and other findings described above. Fleischner guidelines were followed. Critical Care Time Critical Care Time Critical Care Time: Yes Total Critical Care Time: 60 Attestation: I have personally provided critical care time. Time includes review of lab data, radiology results, discussion with consultants, and monitoring for potential decompensation. Intervention performed as documented. Discharge Plan Discharge Clinical Impression: Bleeding internal hemorrhoids, Acute viral bronchitis Patient Disposition: Home, Self-Care Instructions: Acute Bronchitis (ED), Hemorrhoids (ED) Additional Instructions: Please follow-up with your primary care physician tomorrow. If you have any worsening or new symptoms, please return to the emergency room or call 911 Prescriptions: No Action sertraline 50 mg Tablet 50 mg PO DAILY gabapentin 300 mg Capsule 300 mg PO BID cyclobenzaprine 10 mg Tablet 20 mg PO BEDTIME amlodipine 10 mg tablet 1 tab PO DAILY Janumet 50-1,000 mg Tablet 1 tab PO BID Jardiance 10 mg Tablet 10 mg PO DAILY benazepril 10 mg tablet 2 tab PO DAILY 60 Days Qty: 120 1RF melatonin 10 mg Tablet 20 mg PO BEDTIME omeprazole 20 mg capsule,delayed release(DR/EC) 1 cap PO BID Qty: 60 0RF carvedilol 12.5 mg tablet 25 mg PO BID trazodone 50 mg tablet 50 - 100 mg PO BEDTIME PRN (Reason: insomnia) oxcarbazepine 300 mg tablet 300 mg PO BID dicyclomine 20 mg Tablet 20 mg PO QID insulin glargine [Lantus Solostar U-100 Insulin] 100 unit/mL (3 mL) insulin pen 10 unit subcut BEDTIME amoxicillin-pot clavulanate 875-125 mg tablet 1 tab PO BID Qty: 20 0RF polyethylene glycol 3350 [Miralax] 17 gram/dose powder 17 g PO DAILY Qty: 510 0RF oxycodone 5 mg tablet 5 mg PO Q6H PRN (Reason: pain) Qty: 20 0RF Rx Instructions: Partial Fill upon patient request. cyclobenzaprine 10 mg tablet 10 mg PO TID PRN (Reason: muscle spasm) Qty: 7 0RF ibuprofen 600 mg tablet 600 mg PO Q8H PRN (Reason: fever or pain) Qty: 20 0RF atorvastatin 20 mg tablet 20 mg PO DAILY aspirin [Adult Low Dose Aspirin] 81 mg tablet,delayed release (DR/EC) 81 mg PO DAILY Print Language: [place] Citizen
[2023-08-07 17:29] LABS: MANUAL DIFF FLAG NO
[2023-08-07 17:31] LABS: OBS Int Ctl Valid YES; OBS1 NEGATIVE (NEGATIVE)
[2023-08-07 17:35] LABS: Basophils Absolute Auto 0.1 X10*3/uL (0.0-0.2); Basophils Percent Auto 0.5 % (0-2); Eosinophils Absolute Auto 0.1 X10*3/uL (0.0-0.4); Eosinophils Percent Auto 0.7 % (0-4); Hematocrit 48.2 % (42.0-52.0); Hemoglobin 16.1 g/dl (14.0-18.0); Imm Gran Abs Auto 0.11 X10*3/uL (0.00-0.03); Imm Gran Pct Auto 0.8 % (0.0-0.4); Lymphocytes Absolute Auto 2.9 X10*3/uL (1.2-4.9); Lymphocytes Percent Auto 20.1 % (20-40); Mean Corpuscular HGB Conc 33.4 g/dl (31.0-36.0); Mean Corpuscular Hemoglobin 29.8 pg (27.0-33.0); Mean Corpuscular Volume 89.3 fL (80.0-98.0); Mean Platelet Volume 10.6 fL (9.4-12.4); Monocytes Absolute Auto 0.8 X10*3/uL (0.1-1.2); Monocytes Percent Auto 5.8 % (2-11); Neutrophils Absolute Auto 10.3 x10*3/uL (2.0-8.3); Neutrophils Percent Auto 72.1 % (45-73); Platelet Count 310 X10*3/uL (160-400); Red Cell Distribution Width 15.3 % (11.0-16.0); White Blood Count 14.3 X10*3/uL (4.8-10.8)
[2023-08-07 17:38] LABS: Prothrombin Time 12.2 SEC (11.1-13.3)
[2023-08-07 17:57] LABS: Alanine Aminotransferase 52 U/L (0-40); Albumin Level 4.3 g/dL (3.5-5.0); Alkaline Phosphatase 33 U/L (39-117); Anion Gap 15 (12-20); Aspartate Amino Transferase 31 U/L (5-37); Bilirubin Direct 0.2 mg/dL (0.0-0.5); Bilirubin Total 0.4 mg/dL (0.0-1.0); Blood Urea Nitrogen 13 mg/dL (9-16); Calcium 9.2 mg/dL (8.4-10.2); Carbon Dioxide 23 mmol/L (22-29); Chloride 107 mmol/L (96-108); Creatinine Clr Calc Pharmacy 81.5; Estimated Glomerular Filt Rate > 60; Glucose Random 93 mg/dL (60-115); Lipase 23 U/L (8-78); Magnesium 1.9 mg/dL (1.6-2.6); Potassium 3.4 mmol/L (3.3-5.1); Sodium 142 mmol/L (135-145); Total Protein 7.9 g/dL (6.5-8.0)
[2023-08-07 18:05] LABS: Lactic Acid 1.6 mmol/L (0.5-2.0)
[2023-08-07 18:14] LABS: Troponin-I High Sensitivity < 2.7 ng/L (<3.5-35.0)
[2023-08-07 18:24] LABS: COVID-19 Test Negative (Negative); IDNOW Serial# 6674DD1D
[2023-08-07] MEDS: iohexoL 350 MG/ML 100 ML INFUS..BTL IV (18:46)
[2023-08-07 19:17] LABS: IDNOW Serial# 08D9AD1C; Influenza A Negative (Negative); Influenza B2 Negative (Negative)
[2023-08-07 21:22] VITALS: BP 149/111; PULSE 92; RESP 16; TEMP 36.8; O2SAT 96
[2023-08-07 21:49] LABS: Appearance Urine Clear; Color Urine Yellow; Glucose Urine UA >=1000 mg/dL (Negative); Leukocyte Esterase Urine Negative (Negative); Nitrite Urine Negative (Negative); PH 5.5 (5.0-9.0); Specific Gravity - Urine >= 1.030 (1.005-1.025); UMIC TRIGGER UACC YES; Urine Blood Negative (Negative); Urine Ketones Negative (Negative); Urine Protein Trace mg/dL (Neg-Trace)
[2023-08-07 22:28] LABS: Bacteria Urine None Seen (None Seen); Hyaline Casts Urine 0-2 /LPF (0-2); RBC Urine 0-2 /HPF (0-2); Squamous Epithelial Cell Urine 0-2 /HPF (0-2); WBC Urine 0-5 /HPF (0-5)
[2023-08-08 00:16] VITALS: BP 171/113; PULSE 91; RESP 18; TEMP 36.7; O2SAT 96
[2023-08-08 00:17] VITALS: BP 171/113; PULSE 91; RESP 18; TEMP 36.7; O2SAT 96
== END 2023-08-08 00:17 | disposition home or self-care (01) ==
PROVIDERS: Emergency Provider Emergency Medicine; PCP Internal Medicine
DX: K64.8 Other hemorrhoids (principal); J20.9 Acute bronchitis, unspecified; R10.30 Lower abdominal pain, unspecified; R00.0 Tachycardia, unspecified; R05.9 Cough, unspecified; Z11.52 Encounter for screening for COVID-19; Z79.899 Other long term (current) drug therapy
CPT/HCPCS: 71045; 74178; 80048; 80076; 81001; 81003; 82272; 83605; 83690; 83735; 84484; 85025; 85610; 86850; 86900; 86901; 87502; 87635; 93005; 99284; 99285; Q9967

== ENCOUNTER → 2023-08-07 16:36 | Outpatient (BNV) | payer OTHER, SELFPAY | PROVIDERS: Emergency Provider Emergency Medicine; PCP Internal Medicine; Visit Provider Internal Medicine Cardiovascular Disease | DX: R00.0 Tachycardia, unspecified (principal); R42 Dizziness and giddiness | CPT/HCPCS: 93010 ==

== ENCOUNTER 2023-10-17 13:25 | Emergency (ER) | payer OTHER, SELFPAY ==
[2023-10-17 13:30] VITALS: BP 142/92; PULSE 96; O2SAT 97
[2023-10-17 13:37] VITALS: BP 144/99; PULSE 92; RESP 22; TEMP 36.7; O2SAT 97; BMI 36.2
--- NOTE | 2023-10-17 13:41 | ECG_ITS ---
Test Reason : WEAKNESS Blood Pressure : / mmHG Vent. Rate : 089 BPM Atrial Rate : 089 BPM P-R Int : 156 ms QRS Dur : 098 ms QT Int : 410 ms P-R-T Axes : 033 038 054 degrees QTc Int : 498 ms Normal sinus rhythm Normal ECG When compared with ECG of 07-AUG-2023 16:44, No significant change was found Referred By: Generic ED Physician Electronically Signed By:ERICA GRIFFIN MD
[2023-10-17 13:57] LABS: Glucose, Whole Blood 86 mg/dL (60-115)
[2023-10-17 14:32] LABS: MANUAL DIFF FLAG NO
[2023-10-17 14:34] LABS: Basophils Percent Auto 0.3 % (0-2); Eosinophils Absolute Auto 0.1 X10*3/uL (0.0-0.4); Eosinophils Percent Auto 0.6 % (0-4); Hematocrit 47.3 % (42.0-52.0); Imm Gran Abs Auto 0.06 X10*3/uL (0.00-0.03); Imm Gran Pct Auto 0.5 % (0.0-0.4); Lymphocytes Percent Auto 16.7 % (20-40); Mean Corpuscular HGB Conc 33.8 g/dl (31.0-36.0); Mean Corpuscular Hemoglobin 30.4 pg (27.0-33.0); Mean Corpuscular Volume 89.9 fL (80.0-98.0); Mean Platelet Volume 10.1 fL (9.4-12.4); Monocytes Absolute Auto 0.8 X10*3/uL (0.1-1.2); Monocytes Percent Auto 6.4 % (2-11); Neutrophils Absolute Auto 8.9 x10*3/uL (2.0-8.3); Neutrophils Percent Auto 75.5 % (45-73); Platelet Count 223 X10*3/uL (160-400); Red Blood Count 5.26 X10*6/uL (4.60-5.80); Red Cell Distribution Width 14.5 % (11.0-16.0); White Blood Count 11.8 X10*3/uL (4.8-10.8)
[2023-10-17 14:48] LABS: Alanine Aminotransferase 31 U/L (0-40); Albumin Level 4.1 g/dL (3.5-5.0); Alkaline Phosphatase 33 U/L (39-117); Anion Gap 16 (12-20); Aspartate Amino Transferase 19 U/L (5-37); Bilirubin Direct 0.1 mg/dL (0.0-0.5); Bilirubin Total 0.4 mg/dL (0.0-1.0); Blood Urea Nitrogen 14 mg/dL (9-16); Calcium 9.2 mg/dL (8.4-10.2); Carbon Dioxide 25 mmol/L (22-29); Chloride 102 mmol/L (96-108); Creatinine Clr Calc Pharmacy 68.9; Estimated Glomerular Filt Rate 55; Glucose Random 82 mg/dL (60-115); Magnesium 1.8 mg/dL (1.6-2.6); Potassium 4.2 mmol/L (3.3-5.1); Sodium 139 mmol/L (135-145); Total Protein 7.1 g/dL (6.5-8.0)
[2023-10-17 14:56] LABS: Troponin-I High Sensitivity < 2.7 ng/L (<3.5-35.0)
--- NOTE | 2023-10-17 15:08 | ED_ITS ---
HPI - Weakness General Chief complaint: Weakness Stated complaint: WEAKNESS, BLURRED VISION, DIZZINESS X 3 DAYS Time Seen by Provider: 10/17/23 14:42 Source: patient Mode of arrival: ambulatory History of Present Illness ED Provider: Dr James HPI Narrative: 53-year-old male with history of diabetes, hypertension who reports persistent blurry vision, weakness, unsteadiness, states he has been fully evaluated at [facility], he followed up with his primary care doctor last week who directed him back to the emergency room. Related Data Home Medications ?Medication ?Instructions ?Recorded ?Confirmed aspirin 81 mg tablet,delayed 81 mg PO DAILY 12/28/19 07/10/23 release (Adult Low Dose Aspirin) atorvastatin 20 mg tablet 20 mg PO DAILY 12/28/19 07/10/23 gabapentin 300 mg capsule 300 mg PO BID 01/07/20 07/10/23 sertraline 50 mg tablet 50 mg PO DAILY 02/16/20 07/10/23 amlodipine 10 mg tablet 1 tab PO DAILY 01/25/22 07/10/23 cyclobenzaprine 10 mg tablet 20 mg PO BEDTIME 01/25/22 07/10/23 empagliflozin 10 mg tablet 10 mg PO DAILY 01/25/22 07/10/23 (Jardiance) sitagliptin phosphate 50 1 tab PO BID 01/25/22 07/10/23 mg-metformin 1,000 mg tablet (Janumet) melatonin 10 mg tablet 20 mg PO BEDTIME 02/14/23 07/10/23 carvedilol 12.5 mg tablet 25 mg PO BID 07/10/23 07/10/23 dicyclomine 20 mg tablet 20 mg PO QID 07/10/23 07/10/23 insulin glargine 100 unit/mL (3 10 unit subcut BEDTIME 07/10/23 07/10/23 mL) subcutaneous pen (Lantus Solostar U-100 Insulin) oxcarbazepine 300 mg tablet 300 mg PO BID 07/10/23 07/10/23 trazodone 50 mg tablet 50 - 100 mg PO BEDTIME PRN insomnia 07/10/23 07/10/23 Previous Rx's ?Medication ?Instructions ?Recorded benazepril 10 mg tablet 2 tab PO DAILY 60 days #120 tabs 01/28/22 omeprazole 20 mg capsule,delayed 1 cap PO BID #60 caps 02/15/23 release amoxicillin 875 mg-potassium 1 tab PO BID #20 tabs 03/06/23 clavulanate 125 mg tablet oxycodone 5 mg tablet 5 mg PO Q6H PRN pain #20 tabs 03/06/23 polyethylene glycol 3350 17 17 g PO DAILY #510 grams 03/06/23 gram/dose oral powder (Miralax) cyclobenzaprine 10 mg tablet 10 mg PO TID PRN muscle spasm #7 07/19/23 tabs ibuprofen 600 mg tablet 600 mg PO Q8H PRN fever or pain 07/19/23 #20 tabs Allergies Allergy/AdvReac Type Severity Reaction Status Date / Time morphine [MORPHINE] Allergy Unknown HIVES, rash Verified 10/17/23 13:39 Review of Systems 2 Review of Systems: Pertinent positives and negatives as stated in [facility] Past Medical History Source: nursing notes reviewed Medical History Blurry vision Obesity Elevated blood pressure reading Hypertension, uncontrolled Renal insufficiency Sleep apnea Diabetes Lower GI bleed Diverticulosis Hematochezia Right ankle pain History of diverticulitis Mitral valve disease Anxiety GERD (gastroesophageal reflux disease) Constipation Hyperlipidemia Hypertension Surgical History History of colostomy reversal History of esophagogastroduodenoscopy (EGD) History of colonoscopy Status post Ammy procedure (10/21/19) H/O mitral valve repair Family History Family History Mother Diabetes mellitus Father Diabetes mellitus Social History Social History Household Members: Significant Other Housing: Apartment Are you a primary rehab care assistant to a significant other at home: No Do you presently have visiting nurse or other home services: No Unable to assess alcohol history related to: Unable to respond Alcohol intake: current Alcohol intake frequency: holidays/special occasions only Alcohol type: beer and hard liquor Comment: PT SLEEPING Patient Tobacco Use Status: Never used Tobacco Smoked in Last 30 Days: No Second Hand Smoke Exposure: No Use of substances other than those prescribed or required for medical reasons: No Substance Use Type: Marijuana Advance Directives: Yes Advance Directives on File: Yes Advance Directives Date on File: 02/22/20 Do you have a plan to hurt others: No Plan service: No Current occupational status: unemployed Physical Exam 2 Vital Signs: Vital Signs: Last Vital Signs Temp 97.9 F 10/17/23 15:37 Pulse 94 10/17/23 15:54 Resp 16 10/17/23 15:37 BP 141/92 H 10/17/23 15:54 Pulse Ox 96 10/17/23 15:37 O2 Del Method Room Air 10/17/23 15:37 BMI result Body Mass Index 36.2 VITAL SIGNS: Reviewed. GENERAL: Well developed, well nourished, in no acute distress. HEAD: Normocephalic/atraumatic EYES: PERRLA, EOMI intact without pain, no nystagmus/pallor/icterus noted EARS: Ext canals without abnormality, TMs non-bulging and non-erythematous NOSE: Nares patent bilateral OROPHARYNX: no oral lesions noted, posterior pharynx clear and non-erythematous without noted tonsillar enlargement/erythema/exudates NECK: Supple, no adenopathy LUNGS: Normal breath sounds. No adventitious sounds or accessory muscle use. SpO2<96> CARDIOVASCULAR: Regular rate and rhythm without noted murmurs, no JVD or lower extremity edema. ABDOMEN: Soft, non-tender, non-distended with bowel sounds. MUSCULOSKELETAL: No tenderness, deformities, or effusions noted on gross inspection. EXTREMITIES: No cyanosis, clubbing or edema. SKIN: Inspection of the skin reveals no rashes NEUROLOGIC: Alert and oriented x 4. Strength and sensation to light touch were grossly intact x 4. Medical Decision Making Medical Decision Making MDM Narrative: 53-year-old male with history and clinical presentation, DDX: No focal deficit, will evaluate for possible hypovolemia, occult infection, urinary tract infection. Also requesting records from [facility]. I reviewed and interpreted all investigations and hematologic indices demonstrate a chronic detectable leukocytosis, patient has otherwise been afebrile, no anemia and no thrombocytopenia. Chemistry indices are negative for BRENDON/electrolyte or liver enzyme derangements. Troponin is undetectable and there are no acute changes on EKG. Orthostatics are negative. Urinalysis is negative for UTI or hematuria. EKG: Normal sinus rhythm, HR-89, no STEMI, NV/QRS is within normal limits and QTC mildly prolonged at 498. I did review the chart from [facility] on 10/17/2023 when patient was seen at their facility for complaints of diarrhea vomiting. He had an abdominal and pelvic CT scan which was otherwise negative and lab work is very consistent with today's findings. My interpretation is that patient has some underlying health anxiety although he does have diabetes, it appears to be well controlled, he is attempting to get into an bed and breakfast innkeeper for further visual evaluation but patient may need medication adjustment for his underlying anxiety and depression diagnoses. There are no focal findings to otherwise prompt CT scan of the head, no concerns for intracranial bleeding as no reported falls or traumatic injuries. Patient is otherwise discharged to his primary care doctor with request that this patient be evaluated for other etiologies of his symptoms and assistance in his trying to get evaluated by an bed and breakfast innkeeper. Differential Diagnosis Differential Diagnoses: The differential diagnosis associated with the presentation includes Please see the discussion above Admission/Observation Consideration of admission/observation: Escalation of care including admission/observation considered Please see the discussion above Lab Data MDM Lab Attestation statement: I reviewed the patient's lab results. Please see the discussion above 10/17/23 14:29 10/17/23 14:29 Labs: Lab Results 10/17/23 10/17/23 10/17/23 Range/Units 13:46 14:29 15:39 WBC 11.8 H (4.8-10.8) X10*3/uL RBC 5.26 (4.60-5.80) X10*6/uL Hgb 16.0 (14.0-18.0) g/dl Hct 47.3 (42.0-52.0) % MCV 89.9 (80.0-98.0) fL MCH 30.4 (27.0-33.0) pg MCHC 33.8 (31.0-36.0) g/dl RDW 14.5 (11.0-16.0) % Plt Count 223 D (160-400) X10*3/uL MPV 10.1 (9.4-12.4) fL Immature Gran % (Auto) 0.5 H (0.0-0.4) % Neut % (Auto) 75.5 H (45-73) % Lymph % (Auto) 16.7 L (20-40) % [place] % (Auto) 6.4 (2-11) % Eos % (Auto) 0.6 (0-4) % Baso % (Auto) 0.3 (0-2) % Lymph # (Auto) 2.0 (1.2-4.9) X10*3/uL [place] # (Auto) 0.8 (0.1-1.2) X10*3/uL Eos # (Auto) 0.1 (0.0-0.4) X10*3/uL Baso # (Auto) 0.0 (0.0-0.2) X10*3/uL Abs Immat Gran (auto) 0.06 H (0.00-0.03) X10*3/uL Absolute Neuts (auto) 8.9 H (2.0-8.3) x10*3/uL Absolute Nucleated RBC 0.000 (0.0-0.012) X10*3/uL Nucleated RBC % (auto) 0.0 (0.0-0.2) /100WBC Sodium 139 (135-145) mmol/L Potassium 4.2 D (3.3-5.1) mmol/L Chloride 102 (96-108) mmol/L Carbon Dioxide 25 (22-29) mmol/L Anion Gap 16 (12-20) BUN 14 (9-16) mg/dL Creatinine 1.37 (0.5-1.4) mg/dL Estim Creat Clear Calc 68.9 Estimated GFR 55 POC Glucose 86 (60-115) mg/dL Random Glucose 82 (60-115) mg/dL Calcium 9.2 (8.4-10.2) mg/dL Magnesium 1.8 (1.6-2.6) mg/dL Total Bilirubin 0.4 (0.0-1.0) mg/dL Direct Bilirubin 0.1 (0.0-0.5) mg/dL AST 19 (5-37) U/L ALT 31 (0-40) U/L Alkaline Phosphatase 33 L (39-117) U/L Troponin I High Sens < 2.7 (<3.5-35.0) ng/L Total Protein 7.1 (6.5-8.0) g/dL Albumin 4.1 (3.5-5.0) g/dL Urine Color Yellow Urine Appearance Clear Urine pH 7.0 (5.0-9.0) Ur Specific [place] 1.010 (1.005-1.025) Urine Protein Negative (Neg-Trace) mg/dL Urine Glucose (UA) 500 H (Negative) mg/dL Urine Ketones Negative (Negative) mg/dL Urine Blood Negative (Negative) Urine Nitrite Negative (Negative) Ur Leukocyte Esterase Negative (Negative) Independent Interpretation I performed an independent interpretation of an: EKG Interpretation: Please see the discussion above External Record Review External record reviewed: Outpatient record, Prior outpatient labs, Prior outpatient radiology and Outside ED record Chronic Conditions Patient?s care impacted by: Diabetes Depression, anxiety Critical Care Time Critical Care Time Critical Care Time: Yes Total Critical Care Time: 45 Attestation: I personally attest to this time spent taking care of the patient. Discharge Plan Discharge Clinical Impression: Anxiety, Diarrhea Patient Disposition: Home, Self-Care Instructions: Nutrition Tips for Relief of Diarrhea (ED), Anxiety (ED) Additional Instructions: 1. Resume home medications as prescribed. 2. Please ask your primary care provider to help you and obtaining expedited access to an bed and breakfast innkeeper for further visual examination. Also, I do have concerns that a component of your symptoms today may be your underlying health anxiety and you may benefit by discussing this further with your provider and possible medication adjustment. Return to the ER for any worsening symptoms. Prescriptions: No Action sertraline 50 mg Tablet 50 mg PO DAILY gabapentin 300 mg Capsule 300 mg PO BID cyclobenzaprine 10 mg Tablet 20 mg PO BEDTIME amlodipine 10 mg tablet 1 tab PO DAILY Janumet 50-1,000 mg Tablet 1 tab PO BID Jardiance 10 mg Tablet 10 mg PO DAILY benazepril 10 mg tablet 2 tab PO DAILY 60 Days Qty: 120 1RF melatonin 10 mg Tablet 20 mg PO BEDTIME omeprazole 20 mg capsule,delayed release(DR/EC) 1 cap PO BID Qty: 60 0RF carvedilol 12.5 mg tablet 25 mg PO BID trazodone 50 mg tablet 50 - 100 mg PO BEDTIME PRN (Reason: insomnia) oxcarbazepine 300 mg tablet 300 mg PO BID dicyclomine 20 mg Tablet 20 mg PO QID insulin glargine [Lantus Solostar U-100 Insulin] 100 unit/mL (3 mL) insulin pen 10 unit subcut BEDTIME amoxicillin-pot clavulanate 875-125 mg tablet 1 tab PO BID Qty: 20 0RF polyethylene glycol 3350 [Miralax] 17 gram/dose powder 17 g PO DAILY Qty: 510 0RF oxycodone 5 mg tablet 5 mg PO Q6H PRN (Reason: pain) Qty: 20 0RF Rx Instructions: Partial Fill upon patient request. cyclobenzaprine 10 mg tablet 10 mg PO TID PRN (Reason: muscle spasm) Qty: 7 0RF ibuprofen 600 mg tablet 600 mg PO Q8H PRN (Reason: fever or pain) Qty: 20 0RF atorvastatin 20 mg tablet 20 mg PO DAILY aspirin [Adult Low Dose Aspirin] 81 mg tablet,delayed release (DR/EC) 81 mg PO DAILY Referrals: Daniel Cisneros MD [Primary Care Provider] - Print Language: Polish
[2023-10-17 15:37] VITALS: BP 137/92; PULSE 98; RESP 16; TEMP 36.6; O2SAT 96
[2023-10-17 15:49] LABS: Appearance Urine Clear; Color Urine Yellow; Glucose Urine UA 500 mg/dL (Negative); Leukocyte Esterase Urine Negative (Negative); Nitrite Urine Negative (Negative); Urine Blood Negative (Negative); Urine Ketones Negative (Negative); Urine Protein Negative (Neg-Trace)
[2023-10-17 15:53] VITALS: BP 130/85; BP 144/102; PULSE 86; PULSE 90
[2023-10-17 15:54] VITALS: BP 141/92; PULSE 94
[2023-10-17 17:10] VITALS: BP 141/92; PULSE 94; RESP 16; TEMP 36.6; O2SAT 97
== END 2023-10-17 16:55 | disposition home or self-care (01) ==
PROVIDERS: Physician Assistant; Emergency Provider Student in an Organized Health Care Education/Training Program; PCP Internal Medicine
DX: F41.9 Anxiety disorder, unspecified (principal); R19.7 Diarrhea, unspecified; H53.8 Other visual disturbances; R26.81 Unsteadiness on feet; Z79.899 Other long term (current) drug therapy; I10 Essential (primary) hypertension; E11.9 Type 2 diabetes mellitus without complications; I34.1 Nonrheumatic mitral (valve) prolapse
CPT/HCPCS: 36415; 80048; 80076; 81003; 82947; 83735; 84484; 85025; 93005; 99283; 99285

== ENCOUNTER → 2023-10-17 13:41 | Outpatient (BNV) | payer OTHER, SELFPAY | PROVIDERS: Emergency Provider Student in an Organized Health Care Education/Training Program; PCP Internal Medicine; Visit Provider Internal Medicine Cardiovascular Disease | DX: R53.1 Weakness (principal) | CPT/HCPCS: 93010 ==

== ENCOUNTER 2024-06-16 13:25 | Outpatient (AMB) | payer OTHER, SELFPAY ==
--- NOTE | 2024-06-16 13:29 | MHC.OFFVIS ---
Vital Signs 06/16/24 13:39 Height 5 ft 6 in Weight 215 lb BMI 34.7 BP 182/112 H Blood Pressure Location Lt brachial Position Sitting Pulse 77 Intake Visit Reasons: diverticulitis Intake Note: Patient is seen in office for diverticulitis. Pt c/o: admits to constant diarrhea for the past 2 months, goes up to 5 times a day, pain begging in the upper sides of the abdomen and radiates down, was told he might have Chron's disease, [facility] [employer]S Custom Hair Piece Consultant Required: No Accompanied by: Family/Other Allergies morphine [MORPHINE] Allergy (Unknown, Verified 06/16/24 13:38) HIVES, rash Medication List - Last Reconciled 06/16/24 by Ricco Echevarria MD amlodipine 1 tab PO DAILY amoxicillin-pot clavulanate 875-125 mg 1 tab PO BID aspirin (Adult Low Dose Aspirin) 81 mg PO DAILY atorvastatin 20 mg PO DAILY benazepril 2 tabs PO DAILY 60 days carvedilol 25 mg PO BID cyclobenzaprine 20 mg PO BEDTIME cyclobenzaprine 10 mg PO TID PRN dicyclomine 20 mg PO QID empagliflozin (Jardiance) 10 mg PO DAILY gabapentin 300 mg PO BID ibuprofen 600 mg PO Q8H PRN insulin glargine (Lantus Solostar U-100 Insulin) 10 units subcut BEDTIME melatonin 20 mg PO BEDTIME omeprazole 1 cap PO BID oxcarbazepine 300 mg PO BID polyethylene glycol 3350 (Miralax) 17 grams PO DAILY sertraline 50 mg PO DAILY sitagliptin phos-metformin 50-1,000 mg (Janumet) 1 tab PO BID trazodone 50 - 100 mg PO BEDTIME PRN HPI Comments Details: 53-year-old male patient with a prior history of perforated sigmoid diverticulitis, status post Ammy procedure followed by closure of colostomy now presenting for complaints of diarrhea up to 5 times per day, abdominal pain in the upper abdomen with radiation into the right lower chest and flank and down into the low right back. This has been going on for the last 1-2 months and seems to be increasing in severity. He was evaluated in the emergency department and subsequently was seen by his chucking machine set up operator tool. He reports undergoing a upper and lower endoscopy and was told he had Crohn's disease. He was placed on a medication which was inserted into the rectum, possibly for hemorrhoids which have bleeding. He is unaware of any other medications provided for the possible Crohn's disease. He reports the diarrhea is black in color but also develops bleeding from the hemorrhoids as a result. He reports that his appetite is reduced as well. [facility] Medical History Blurry vision Obesity Elevated blood pressure reading Hypertension, uncontrolled Renal insufficiency Sleep apnea Diabetes Lower GI bleed Diverticulosis Hematochezia Right ankle pain History of diverticulitis Mitral valve disease Anxiety GERD (gastroesophageal reflux disease) Constipation Hyperlipidemia Hypertension Surgical History History of colostomy reversal History of esophagogastroduodenoscopy (EGD) History of colonoscopy Status post Ammy procedure (10/21/19) H/O mitral valve repair Family History Mother Diabetes mellitus Father Diabetes mellitus Social History Household Members: Significant Other Housing: Apartment Are you a primary hospice patient care secretary to a significant other at home: No Do you presently have visiting nurse or other home services: No Unable to assess alcohol history related to: Unable to respond Alcohol intake: current Alcohol intake frequency: holidays/special occasions only Alcohol type: beer and hard liquor Comment: PT SLEEPING Patient Tobacco Use Status: Never used Tobacco Second Hand Smoke Exposure: No Substance Use Type: Marijuana Advance Directives Date on File: 02/22/20 service: No Current occupational status: unemployed Review of Systems Const All systems reviewed & are unremarkable except as noted in HPI and below Physical Exam Const General: cooperative and no acute distress Nutritional Appearance: well nourished Orientation/consciousness: patient oriented x3 Limitations: no limitations HEENT Head: Yes normocephalic and Yes atraumatic Ears: hearing grossly normal bilaterally Resp Effort & Inspection: normal respiratory effort, no audible wheezes, no cough and no respiratory distress Cardio Jugular venous distension: no JVD GI Inspection: Yes normal to inspection Palpation (GI): Soft to palpation and Tenderness to palpation present (GI) (Mild tenderness without rebound, guarding or rigidity.) in the LUQ and in the RUQ Percussion: Yes normal to percussion Auscultation: normal bowel sounds Rectal Exam - Male: Yes deferred Skin Other: Warm, dry, no rash Neuro General: patient oriented x3 Extrem General: Yes no clubbing, cyanosis or edema Assessment & Plan Assessment & Plan (1) Diarrhea: Code(s): R19.7 - Diarrhea, unspecified Category: Medical Qualifiers: Diarrhea type: presumed infectious Qualified Code(s): R19.7 - Diarrhea, unspecified (2) Abdominal pain: Code(s): R10.9 - Unspecified abdominal pain Category: Medical Qualifiers: Abdominal location: generalized Qualified Code(s): R10.84 - Generalized abdominal pain Plan 53-year-old male presenting with a previous history of diverticulitis now with persistent diarrhea and abdominal pain. Findings are concerning for C diff colitis although an inflammatory bowel diseases also possible. I am uncertain what imaging or other workup has been done diagnosed the possible Crohn's disease but recommended starting with a C diff titer and CT abdomen and pelvis to evaluate for bowel wall thickening. He expressed understanding and agrees with the plan. Further workup will be based on this workup. Orders: Orders CDiff Gene PCR Today R19.7 - Diarrhea, unspecified CT abdomen pelvis w IV con Today R10.84 - Generalized abdominal pain, R19.7 - Diarrhea, unspecified Coding Level of Care Code New Pt Level 4 (68588) Diagnoses Diarrhea of presumed infectious origin R19.7 Diarrhea type: presumed infectious Abdominal pain R10.84 Abdominal location: generalized
[2024-06-16 13:39] VITALS: BP 182/112; PULSE 77; BMI 34.7
== END 2024-06-16 13:59 | disposition home or self-care (01) ==
LOC: HO.HGS 13:26
PROVIDERS: PCP Internal Medicine; Visit Provider Surgery
DX: R10.84 Generalized abdominal pain (principal); R19.7 Diarrhea, unspecified
CPT/HCPCS: 99214

== ENCOUNTER → 2024-06-16 13:25 | Outpatient (BNVA) | payer OTHER, SELFPAY | PROVIDERS: PCP Internal Medicine; Visit Provider Surgery | DX: R19.7 Diarrhea, unspecified (principal); R10.84 Generalized abdominal pain | CPT/HCPCS: 99212 ==

== ENCOUNTER 2024-08-27 12:02 | Emergency (ER) | payer OTHER, SELFPAY ==
--- NOTE | 2024-08-27 12:42 | ED.GENADULT ---
HPI - General Adult General Chief complaint: GI Bleed Stated complaint: Rectal bleeding 4 days Related Data Home Medications ?Medication ?Instructions ?Recorded ?Confirmed aspirin 81 mg tablet,delayed 81 mg PO DAILY 12/28/19 07/10/23 release (Adult Low Dose Aspirin) atorvastatin 20 mg tablet 20 mg PO DAILY 12/28/19 07/10/23 gabapentin 300 mg capsule 300 mg PO BID 01/07/20 07/10/23 sertraline 50 mg tablet 50 mg PO DAILY 02/16/20 07/10/23 amlodipine 10 mg tablet 1 tab PO DAILY 01/25/22 06/16/24 cyclobenzaprine 10 mg tablet 20 mg PO BEDTIME 01/25/22 07/10/23 empagliflozin 10 mg tablet 10 mg PO DAILY 01/25/22 07/10/23 (Jardiance) sitagliptin phosphate 50 1 tab PO BID 01/25/22 07/10/23 mg-metformin 1,000 mg tablet (Janumet) melatonin 10 mg tablet 20 mg PO BEDTIME 02/14/23 07/10/23 carvedilol 12.5 mg tablet 25 mg PO BID 07/10/23 07/10/23 dicyclomine 20 mg tablet 20 mg PO QID 07/10/23 07/10/23 insulin glargine 100 unit/mL (3 10 unit subcut BEDTIME 07/10/23 07/10/23 mL) subcutaneous pen (Lantus Solostar U-100 Insulin) oxcarbazepine 300 mg tablet 300 mg PO BID 07/10/23 07/10/23 trazodone 50 mg tablet 50 - 100 mg PO BEDTIME PRN insomnia 07/10/23 07/10/23 Previous Rx's ?Medication ?Instructions ?Recorded benazepril 10 mg tablet 2 tab PO DAILY 60 days #120 tabs 01/28/22 omeprazole 20 mg capsule,delayed 1 cap PO BID #60 caps 02/15/23 release amoxicillin 875 mg-potassium 1 tab PO BID #20 tabs 03/06/23 clavulanate 125 mg tablet polyethylene glycol 3350 17 17 g PO DAILY #510 grams 03/06/23 gram/dose oral powder (Miralax) cyclobenzaprine 10 mg tablet 10 mg PO TID PRN muscle spasm #7 07/19/23 tabs ibuprofen 600 mg tablet 600 mg PO Q8H PRN fever or pain 07/19/23 #20 tabs Allergies Allergy/AdvReac Type Severity Reaction Status Date / Time morphine [MORPHINE] Allergy Unknown HIVES, rash Verified 08/27/24 12:43 [facility] Past Medical History Medical History Blurry vision Obesity Elevated blood pressure reading Hypertension, uncontrolled Renal insufficiency Sleep apnea Diabetes Lower GI bleed Diverticulosis Hematochezia Right ankle pain History of diverticulitis Mitral valve disease Anxiety GERD (gastroesophageal reflux disease) Constipation Hyperlipidemia Hypertension Surgical History History of colostomy reversal History of esophagogastroduodenoscopy (EGD) History of colonoscopy Status post Ammy procedure (10/21/19) H/O mitral valve repair Family History Family History Mother Diabetes mellitus Father Diabetes mellitus Social History Social History Household Members: Significant Other Housing: Apartment Are you a primary medicare interviewer to a significant other at home: No Do you presently have visiting nurse or other home services: No Unable to assess alcohol history related to: Unable to respond Alcohol intake: current Alcohol intake frequency: holidays/special occasions only Alcohol type: beer and hard liquor Comment: PT SLEEPING Patient Tobacco Use Status: Never used Tobacco Second Hand Smoke Exposure: No Substance Use Type: Marijuana Advance Directives: Yes Advance Directives on File: Yes Advance Directives Date on File: 02/22/20 service: No Current occupational status: unemployed Physical Exam ED Vital Signs: BMI result Body Mass Index 34.2 Course Course Course Narrative: This is an RME: Additional HPI, ROS, PE not included below will be deferred to primary provider. RME assessment and note performed by: Alannah Mota PA-C 53 yo male with HTN, T2DM, GERD, HLD, presents to the ED due to 10 days rectal bleeding. States blood is bright red and black and is in the toilet and on the paper. Reports feeling bloated and increased gas. GI doctor started course of prednisone 4 days due to history of diverticulitis, doctor recommended to stop taking steroids and come to ED for evaluation. Associated with nausea and retching. States he has never had rectal bleeding to this extent PE: Normoactive bowel sounds Plan: Labs, UA Left without completing treatment Medical Decision Making Lab Data 08/27/24 13:23 08/27/24 13:23 Labs: Lab Results 08/27/24 08/27/24 Range/Units 13:20 13:23 WBC 11.9 H (4.8-10.8) X10*3/uL RBC 5.52 (4.60-5.80) X10*6/uL Hgb 16.7 (14.0-18.0) g/dl Hct 49.3 (42.0-52.0) % MCV 89.3 (80.0-98.0) fL MCH 30.3 (27.0-33.0) pg MCHC 33.9 (31.0-36.0) g/dl RDW 14.0 (11.0-16.0) % Plt Count 257 (160-400) X10*3/uL MPV 11.0 (9.4-12.4) fL Immature Gran % (Auto) 0.6 H (0.0-0.4) % Neut % (Auto) 68.6 (45-73) % Lymph % (Auto) 23.2 (20-40) % [place] % (Auto) 6.4 (2-11) % Eos % (Auto) 0.7 (0-4) % Baso % (Auto) 0.5 (0-2) % Lymph # (Auto) 2.8 (1.2-4.9) X10*3/uL [place] # (Auto) 0.8 (0.1-1.2) X10*3/uL Eos # (Auto) 0.1 (0.0-0.4) X10*3/uL Baso # (Auto) 0.1 (0.0-0.2) X10*3/uL Abs Immat Gran (auto) 0.07 H (0.00-0.03) X10*3/uL Absolute Neuts (auto) 8.2 (2.0-8.3) x10*3/uL Absolute Nucleated RBC 0.000 (0.0-0.012) X10*3/uL Nucleated RBC % (auto) 0.0 (0.0-0.2) /100WBC ESR 4 (0-15) MM/HR Sodium 143 (135-145) mmol/L Potassium 4.0 (3.3-5.1) mmol/L Chloride 106 (96-108) mmol/L Carbon Dioxide 29 (22-29) mmol/L Anion Gap 12 (12-20) BUN 13 (9-16) mg/dL Creatinine 1.43 H (0.5-1.4) mg/dL Estim Creat Clear Calc 66.3 Estimated GFR 52 Random Glucose 114 (60-115) mg/dL Calcium 9.3 (8.4-10.2) mg/dL Magnesium 1.9 (1.6-2.6) mg/dL Total Bilirubin 0.6 (0.0-1.0) mg/dL AST 23 (5-37) U/L ALT 35 (0-40) U/L Alkaline Phosphatase 38 L (39-117) U/L C-Reactive Protein 1.69 H (< or = 0.50) mg/dL Total Protein 7.5 (6.5-8.0) g/dL Albumin 4.4 (3.5-5.0) g/dL Lipase 19 (8-78) U/L Urine Color Yellow Urine Appearance Clear Urine pH 5.5 (5.0-9.0) Ur Specific [place] 1.025 (1.005-1.025) Urine Protein 30 (1+) H (Neg-Trace) mg/dL Urine Glucose (UA) >=1000 H (Negative) mg/dL Urine Ketones Negative (Negative) mg/dL Urine Blood Negative (Negative) Urine Nitrite Negative (Negative) Ur Leukocyte Esterase Negative (Negative) Urine RBC 0-2 (0-2) /HPF Urine WBC 0-5 (0-5) /HPF Ur Squamous Epith Cells 0-2 (0-2) /HPF Urine Bacteria None Seen (None Seen) Hyaline Casts 0-2 (0-2) /LPF Discharge Plan Discharge Clinical Impression: Bright red rectal bleeding Patient Disposition: Left W/O Completing Treatment Prescriptions: No Action sertraline 50 mg Tablet 50 mg PO DAILY gabapentin 300 mg Capsule 300 mg PO BID cyclobenzaprine 10 mg Tablet 20 mg PO BEDTIME amlodipine 10 mg tablet 1 tab PO DAILY Janumet 50-1,000 mg Tablet 1 tab PO BID Jardiance 10 mg Tablet 10 mg PO DAILY benazepril 10 mg tablet 2 tab PO DAILY 60 Days Qty: 120 1RF melatonin 10 mg Tablet 20 mg PO BEDTIME omeprazole 20 mg capsule,delayed release(DR/EC) 1 cap PO BID Qty: 60 0RF carvedilol 12.5 mg tablet 25 mg PO BID trazodone 50 mg tablet 50 - 100 mg PO BEDTIME PRN (Reason: insomnia) oxcarbazepine 300 mg tablet 300 mg PO BID dicyclomine 20 mg Tablet 20 mg PO QID insulin glargine [Lantus Solostar U-100 Insulin] 100 unit/mL (3 mL) insulin pen 10 unit subcut BEDTIME amoxicillin-pot clavulanate 875-125 mg tablet 1 tab PO BID Qty: 20 0RF polyethylene glycol 3350 [Miralax] 17 gram/dose powder 17 g PO DAILY Qty: 510 0RF cyclobenzaprine 10 mg tablet 10 mg PO TID PRN (Reason: muscle spasm) Qty: 7 0RF ibuprofen 600 mg tablet 600 mg PO Q8H PRN (Reason: fever or pain) Qty: 20 0RF atorvastatin 20 mg tablet 20 mg PO DAILY aspirin [Adult Low Dose Aspirin] 81 mg tablet,delayed release (DR/EC) 81 mg PO DAILY Interventions: NORA Worksheet Last Done: 08/27/24 17:24 Discharge Date/Time: 08/27/24 17:22
[2024-08-27 12:43] VITALS: BP 139/86; PULSE 77; RESP 16; TEMP 36.4; O2SAT 97; BMI 34.2
[2024-08-27 13:27] LABS: MANUAL DIFF FLAG NO
[2024-08-27 13:30] LABS: Appearance Urine Clear; Color Urine Yellow; Glucose Urine UA >=1000 mg/dL (Negative); Leukocyte Esterase Urine Negative (Negative); Nitrite Urine Negative (Negative); PH 5.5 (5.0-9.0); Specific Gravity - Urine 1.025 (1.005-1.025); UMIC TRIGGER UACC YES; Urine Blood Negative (Negative); Urine Ketones Negative (Negative); Urine Protein 30 (1+) mg/dL (Neg-Trace)
[2024-08-27 13:33] LABS: Basophils Absolute Auto 0.1 X10*3/uL (0.0-0.2); Basophils Percent Auto 0.5 % (0-2); Eosinophils Absolute Auto 0.1 X10*3/uL (0.0-0.4); Eosinophils Percent Auto 0.7 % (0-4); Hematocrit 49.3 % (42.0-52.0); Hemoglobin 16.7 g/dl (14.0-18.0); Imm Gran Abs Auto 0.07 X10*3/uL (0.00-0.03); Imm Gran Pct Auto 0.6 % (0.0-0.4); Lymphocytes Absolute Auto 2.8 X10*3/uL (1.2-4.9); Lymphocytes Percent Auto 23.2 % (20-40); Mean Corpuscular HGB Conc 33.9 g/dl (31.0-36.0); Mean Corpuscular Hemoglobin 30.3 pg (27.0-33.0); Mean Corpuscular Volume 89.3 fL (80.0-98.0); Monocytes Absolute Auto 0.8 X10*3/uL (0.1-1.2); Monocytes Percent Auto 6.4 % (2-11); Neutrophils Absolute Auto 8.2 x10*3/uL (2.0-8.3); Neutrophils Percent Auto 68.6 % (45-73); Platelet Count 257 X10*3/uL (160-400); Red Blood Count 5.52 X10*6/uL (4.60-5.80); White Blood Count 11.9 X10*3/uL (4.8-10.8)
[2024-08-27 13:33] LABS: Bacteria Urine None Seen (None Seen); Hyaline Casts Urine 0-2 /LPF (0-2); RBC Urine 0-2 /HPF (0-2); Squamous Epithelial Cell Urine 0-2 /HPF (0-2); WBC Urine 0-5 /HPF (0-5)
[2024-08-27 13:43] LABS: Alanine Aminotransferase 35 U/L (0-40); Albumin Level 4.4 g/dL (3.5-5.0); Alkaline Phosphatase 38 U/L (39-117); Anion Gap 12 (12-20); Aspartate Amino Transferase 23 U/L (5-37); Bilirubin Total 0.6 mg/dL (0.0-1.0); Blood Urea Nitrogen 13 mg/dL (9-16); C Reactive Protein 1.69 mg/dL (< or = 0.50); Calcium 9.3 mg/dL (8.4-10.2); Carbon Dioxide 29 mmol/L (22-29); Chloride 106 mmol/L (96-108); Creatinine Clr Calc Pharmacy 66.3; Estimated Glomerular Filt Rate 52; Glucose Random 114 mg/dL (60-115); Lipase 19 U/L (8-78); Magnesium 1.9 mg/dL (1.6-2.6); Sodium 143 mmol/L (135-145); Total Protein 7.5 g/dL (6.5-8.0)
[2024-08-27 14:13] LABS: Erythrocyte Sedimentation Rate 4 MM/HR (0-15)
--- OUTSIDE RECORDS SUMMARY | 2024-08-27 16:51 | XMS_ITS | Clinical Summary ---
[facility] Organization [facility] Address [address] [place] [address] Care Team Providers Care Wide Piece Goods Inspector Name Role Phone Daniel Cisneros MD Primary Care Provider [phone] Allergies Active Allergy Reactions Criticality Noted Date Comments Morphine 09/17/2016 Medications Medication Sig Dispensed Refills Start Date End Date Status simvastatin (ZOCOR) tablet 20 mg Take 20 mg by mouth every night at bedtime. 0 Active omeprazole (PRILOSEC) 20 MG capsule Take 20 mg by mouth daily. 0 Active naproxen (NAPROSYN) 375 MG tablet Take 375 mg by mouth 2 (two) times a day with meals. 0 Active LORazepam (ATIVAN) 0.5 MG tablet Take 0.5 mg by mouth daily. 0 Active hydrochlorothiazide (HYDRODIURIL) tablet 25 mg Take 25 mg by mouth daily. 0 Active metoprolol tartrate (LOPRESSOR) 50 MG tablet Take 50 mg by mouth daily. 0 Active dicyclomine (BENTYL) 20 MG tablet Take 10 mg by mouth 4 (four) times a day before meals and at bedtime. 0 Active amLODIPine (NORVASC) tablet 10 mg Take 10 mg by mouth daily. 0 Active diphenoxylate-atropine (LOMOTIL) 2.5-0.025 MG per tablet Take 1 tablet by mouth 4 (four) times a day as needed for diarrhea. 0 Active baclofen (LIORESAL) 10 MG tablet Take 10 mg by mouth 3 (three) times a day. 0 Active ondansetron (ZOFRAN) 4 MG tablet Take by mouth. 0 Active silver sulfADIAZINE (SILVADENE, SSD) 1 % cream Apply topically daily. 0 Active ALPRAZolam (XANAX) 0.5 MG tablet Take 0.5 mg by mouth every night at bedtime as needed for sleep. 0 Active hydrocortisone 2.5 % cream Apply topically 2 (two) times a day. 0 Active lactulose (CEPHULAC) 20 GM/30ML solution Take 20 g by mouth 2 (two) times a day. 0 Active methocarbamol (ROBAXIN) 750 MG tablet Take 750 mg by mouth 4 (four) times a day. 0 Active oxyCODONE (ROXICODONE) 5 MG immediate release tablet Take 5 mg by mouth every 4 (four) hours as needed for pain. 0 Active sertraline (ZOLOFT) 25 MG tablet Take 25 mg by mouth daily. 0 Active lisinopril (PRINIVIL,ZESTRIL) tablet 10 mg Take 10 mg by mouth daily. 0 Active docusate sodium (COLACE) 100 MG capsule Take 100 mg by mouth 2 (two) times a day. 0 Active Active Problems No known active problems Family History Medical History Relation Name Comments Stroke Maternal Grandfather Cancer Maternal Grandmother Diabetes Mother Relation Name Status Comments Maternal Grandfather Maternal Grandmother Mother Social History Tobacco Use Types Packs/Day Years Used Date Smoking Tobacco: Never Smokeless Tobacco: Never Alcohol Use Standard Drinks/Week Comments No 0 (1 standard drink = 0.6 oz pur e alcohol) Sex and Gender Information Value Date Recorded Sex Assigned at Not on file Gender Identity Not on file Sexual Orientation Not on file Job Start Date Occupation Industry Not on file Not on file Not on file Last Filed Vital Signs Vital Sign Reading Time Taken Comments Blood Pressure 182/100 06/30/2020 3:51 PM EDT Aware - 2nd attempt Pulse 74 06/30/2020 3:51 PM EDT Temperature 37.2 ??C (98.9 ??F) 06/30/2020 3 :51 PM EDT Respiratory Rate - - Oxygen Saturation 99% 06/30/2020 3:5 1 PM EDT Inhaled Oxygen Concentration - - Weight 109.8 kg (242 lb) 06/30/2020 3:5 1 PM EDT Height 172.7 cm (5' 8 ) 06/30/2020 3:51 PM EDT Body Mass Index 36.8 06/30/2020 3:51 PM EDT Plan of Treatment Health Maintenance Due Date Last Done Comments Hepatitis B Vaccines (1 of 3 - 3-dose series) 1972 Hepatitis C Screening 1972 COVID-19 Vaccine (#1) 03/30/1973 Depression Screening 1984 Preventative Health Evaluation 1990 DTap / Tdap / Td (1 - Tdap) 09/29/1991 Colon Cancer Screening (Colonoscopy) 2017 Shingrix-Zoster Vaccine (1 of 2) 2022 Influenza Vaccine (#1) 2023 Pneumococcal Vaccine Aged Out No long er eligible based on patient's age to complete this topic RSV Ped < 20 months Aged Out No longe r eligible based on patient's age to complete this topic Care Teams Wide Piece Goods Inspector Relationship Specialty Start Date End Date Daniel Cisneros MD [address] [facility] [address] [place] [address] PCP - General Geriatric Medicine 09/08/16
--- NOTE | 2024-08-27 17:25 | PC.NURSE ---
2nd no answer [id number]
== END 2024-08-27 17:22 | disposition left against medical advice (07) ==
PROVIDERS: Emergency Provider Emergency Medicine; PCP Internal Medicine
DX: K62.5 Hemorrhage of anus and rectum (principal); Z79.899 Other long term (current) drug therapy
CPT/HCPCS: 36415; 80053; 81001; 83690; 83735; 85025; 85652; 86140; 99282; 99283

== ENCOUNTER 2024-09-16 13:39 | Outpatient (AMB) | payer OTHER, SELFPAY ==
--- NOTE | 2024-09-16 13:43 | MHC.OFFVIS ---
Vital Signs 09/16/24 13:51 Height 5 ft 6 in Weight 215 lb 8 oz BMI 34.8 BP 129/93 H Blood Pressure Location Lt brachial Position Sitting Pulse 94 Intake Visit Reasons: Hemorrhoids Intake Note: Patient is seen in office for evalution of hemorrhoids. Pt c/o: went to ED and was diagnosed with hemorrhoids per pt has not had another episode of bleeding since ED visit, does feel leaking in the area, itching when cleaning ER:08/27/24 L.OV:06/16/24 Abd pain (n/s to CT scan) Replenisher Required: No Accompanied by: Self / Same As Patient Allergies morphine (MORPHINE) Allergy (Unknown, Verified 09/16/24 13:44) HIVES, rash Medication List - Last Reconciled 09/16/24 by Ricco Echevarria MD amlodipine 1 tab PO DAILY amoxicillin-pot clavulanate 875-125 mg 1 tab PO BID aspirin (Adult Low Dose Aspirin) 81 mg PO DAILY atorvastatin 20 mg PO DAILY benazepril 2 tabs PO DAILY 60 days carvedilol 25 mg PO BID cyclobenzaprine 20 mg PO BEDTIME cyclobenzaprine 10 mg PO TID PRN dicyclomine 20 mg PO QID empagliflozin (Jardiance) 10 mg PO DAILY gabapentin 300 mg PO BID ibuprofen 600 mg PO Q8H PRN insulin glargine (Lantus Solostar U-100 Insulin) 10 units subcut BEDTIME melatonin 20 mg PO BEDTIME omeprazole 1 cap PO BID oxcarbazepine 300 mg PO BID polyethylene glycol 3350 (Miralax) 17 grams PO DAILY sertraline 50 mg PO DAILY sitagliptin phos-metformin 50-1,000 mg (Janumet) 1 tab PO BID trazodone 50 - 100 mg PO BEDTIME PRN HPI Comments Details: 53-year-old male patient well known to service with a previous history of diverticulitis now presenting with complaints of lower GI bleed. He has had an evaluation in the emergency department and with GI was determined to have bleeding hemorrhoids. The bleeding occurs with bowel movements and frequently results in the bowl filling with fresh bright red blood. He denies any pain with having a bowel movement. He does have bowel movements daily which are occasionally loose but denies any current diarrhea. He also reports feeling the hemorrhoids when he is wiping with blood on the toilet paper. He presents today to discuss options for treatment of his bleeding hemorrhoids. [facility] Medical History Blurry vision Obesity Elevated blood pressure reading Hypertension, uncontrolled Renal insufficiency Sleep apnea Diabetes Lower GI bleed Diverticulosis Hematochezia Right ankle pain History of diverticulitis Mitral valve disease Anxiety GERD (gastroesophageal reflux disease) Constipation Hyperlipidemia Hypertension Surgical History History of colostomy reversal History of esophagogastroduodenoscopy (EGD) History of colonoscopy Status post Ammy procedure (10/21/19) H/O mitral valve repair Family History Mother Diabetes mellitus Father Diabetes mellitus Social History Household Members: Significant Other Housing: Apartment Are you a primary urgent care technician to a significant other at home: No Do you presently have visiting nurse or other home services: No Unable to assess alcohol history related to: Unable to respond Alcohol intake: current Alcohol intake frequency: holidays/special occasions only Alcohol type: beer and hard liquor Comment: PT SLEEPING Patient Tobacco Use Status: Never used Tobacco Second Hand Smoke Exposure: No Substance Use Type: Marijuana Advance Directives Date on File: 02/22/20 service: No Current occupational status: unemployed Review of Systems Const All systems reviewed & are unremarkable except as noted in HPI and below Physical Exam Vital Signs: Last Vital Signs Pulse 94 09/16/24 13:51 BP 129/93 H 09/16/24 13:51 BMI result Body Mass Index 34.8 Const General: cooperative and no acute distress Nutritional Appearance: well nourished Orientation/consciousness: patient oriented x3 Limitations: no limitations HEENT Head: Yes normocephalic and Yes atraumatic Ears: hearing grossly normal bilaterally Resp Effort & Inspection: normal respiratory effort, no audible wheezes, no cough and no respiratory distress Cardio Jugular venous distension: no JVD GI Inspection: Yes normal to inspection Back/Spine/Pelvis Other: Rectal examination: External examination: No tenderness, no perirectal abscess, no thrombosed hemorrhoid, no anal fissure Digital examination: No palpable tenderness, normal sphincter tone, no palpable mass Anoscopic examination: Large hemorrhoids x3 noted circumferentially with inflammatory changes and stigmata of bleeding. No active bleeding noted at this time. Skin Other: Warm, dry, no rash Neuro General: patient oriented x3 Extrem General: Yes no clubbing, cyanosis or edema Assessment & Plan Assessment & Plan (1) Bleeding grade III hemorrhoids: Code(s): K64.2 - Third degree hemorrhoids Category: Medical Plan 53-year-old male patient presenting with complaints of rectal bleeding with bowel movements. Patient found to have large internal hemorrhoids with evidence of bleeding. This extends close to the anal verge and would not be a suitable candidate for Pollard's ligation. I recommended proceeding to OR for hemorrhoidectomy and after discussion of the procedure, risks, and alternatives, he consents to the surgery. He will be scheduled as a short-stay surgery. Coding Level of Care Code Est Pt Level 4 (80733) Diagnoses Bleeding grade III hemorrhoids K64.2
[2024-09-16 13:51] VITALS: BP 129/93; PULSE 94; BMI 34.8
--- OUTSIDE RECORDS SUMMARY | 2024-09-16 15:41 | XMS_ITS | Clinical Summary ---
Author Organization [facility] Address [address] [place] [address] Care Team Providers Care Senior Systems Programmer Name Role Phone Daniel Cisneros MD Primary Care Provider [phone] Allergies Active Allergy Reactions Criticality Noted Date [...] 74 06/30/2020 3:51 PM EDT Temperature 37.2 C (98.9 F) 06/30/2020 3:51 PM EDT Respiratory Rate - - Oxygen [...] Vaccine (1 of 2) 2022 Influenza Vaccine (Season Ended) 2024 Pneumococcal Vaccine Aged Out No long er eligible based on patient's age to complete this topic RSV Ped < 20 months Aged Out No longe r eligible based on patient's age to complete this topic Care Teams Senior Systems Programmer Relationship Specialty Start Date End Date Daniel Cisneros MD [address] [facility] [facility] [address] [place] [address] PCP - General Geriatric Medicine 09/08/16
== END 2024-09-16 14:22 | disposition home or self-care (01) ==
LOC: HO.HGS 13:40
PROVIDERS: PCP Internal Medicine; Visit Provider Surgery
DX: K64.2 Third degree hemorrhoids (principal)
CPT/HCPCS: 99214

== ENCOUNTER → 2024-09-16 13:39 | Outpatient (BNVA) | payer OTHER, SELFPAY | PROVIDERS: PCP Internal Medicine; Visit Provider Surgery | DX: K64.2 Third degree hemorrhoids (principal) | CPT/HCPCS: 99212 ==

== ENCOUNTER 2024-11-23 05:40 | Day surgery (SDC) | payer OTHER, SELFPAY ==
--- OUTSIDE RECORDS SUMMARY | 2024-11-06 13:09 | XMS_ITS | Clinical Summary ---
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 AI based computer aided triage software. Total DLP: 3667 mGy/cm COMPARISON: No priors available. FINDINGS: Noncon Brain: There is no mass, hemorrhage or acute territorial infarct. 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 CTA Neck: There is a left-sided aortic arch. Great vessels are patent with conventional anatomy. Common carotid and internal carotid arteries are patent in the neck. Cervical vertebral arteries are patent. Visualized lung apices are clear. Soft tissues of the neck are normal. CTA Head: Intracranial portions of the internal carotid arteries are patent. Proximal middle and anterior circulation is patent. Vertebrobasilar system is patent. Proximal video photographer are patent. origin right FOREIGN CLERK. Major dural venous sinuses opacify normally with contrast. Polypoid mucosal thickening versus retention cyst left maxillary sinus. Degenerative changes in the bones. Calvarial defect at the posterior vertex. Procedure Note Tanvir Ramon MD - 09/14/2024 PROCEDURE: CTA HEAD AND NECK INDICATION: Neuro deficit, acute, stroke suspected TECHNIQUE: CTA of the head and neck with intravenous contrast. Multiplanarreformats. The examination was performed utilizing dose reductiontechniques.3-D or MIP images were produced with postprocessing on anindependent computer workstation. 90cc Omnipaque 370 injected. Scan wasanalyzed using [employer] Contact AI based computer aided triage software. Total DLP: 3667 mGy/cm COMPARISON: No priors available. FINDINGS: Noncon Brain: There is no mass, hemorrhage or acute territorial infarct. Congenitaldeformation of the posterior fossa at acute findings.. CTA Neck: There is a left-sided aortic arch. Great vessels are patent withconventional anatomy. Common carotid and internal carotid arteries arepatent in the neck. Cervical vertebral arteries are patent. Visualized lung apices are clear. Soft tissues of the neck are normal. CTA Head: Intracranial portions of the internal carotid arteries are patent. Proximal middle and anterior circulation is patent. Vertebrobasilar system is patent. Proximal video photographer are patent. originright FOREIGN CLERK. Major dural venous sinuses opacify normally with contrast. Polypoid mucosal thickening versus retention cyst left maxillary sinus.Degenerative changes in the bones. Calvarial defect at the posteriorvertex. IMPRESSION: NO ACUTE INTRACRANIAL ABNORMALITY. -------- FINAL REPORT -------- Dictated By: Tanvir Ramon Dictated Date: 09/14/2024 12:39 ET Assigned Physician: Tanvir Ramon Reviewed and Electronically Signed By: Tanvir Ramon Signed Date: 09/14/2024 12:51 ET Workstation ID: [id number] Transcribed By: Self Edit Transcribed Date: 09/14/2024 12:39 ET Javed Ruiz DO IMG CT PROCEDURES Final Result * (ABNORMAL) CBC auto differential (09/14/2024 10:41 AM EDT) Only the most recent of2 resultswithin the time period is included. WBC 13.5(H) 4.8 - 10.8 K/mcL LAB HEMETOLOGY METHOD 09/14/2024 11:27 AM [facility] RBC 5.60(H) 4.50 - 5.50 M/mcL LAB HEMETOLOGY METHOD 09/14/2024 11:27 AM [facility] Hemoglobin 16.7 13.5 - 17.5 g/dL LAB HEMETOLOGY METHOD 09/14/2024 11:27 AM [facility] Hematocrit 51.1 42.0 - 54.0 % LAB HEMETOLOGY METHOD 09/14/2024 11:27 AM [facility] MCV 91.9 79.0 - 98.0 FL LAB HEMETOLOGY METHOD 09/14/2024 11:27 AM [facility] MCH 30.0 27.0 - 32.0 pcg LAB HEMETOLOGY METHOD 09/14/2024 11:27 AM [facility] MCHC 32.7 32.0 - 37.0 g/dL LAB HEMETOLOGY METHOD 09/14/2024 11:27 AM [facility] RDW 14.1 11.0 - 15.0 % LAB HEMETOLOGY METHOD 09/14/2024 11:27 AM [facility] Platelets 296 130 - 400 K/mcL LAB HEMETOLOGY METHOD 09/14/2024 11:27 AM [facility] MPV 11.4(H) 7.0 - 11.0 FL LAB HEMETOLOGY METHOD 09/14/2024 11:27 AM [facility] NRBC 0.0 <1.0 % LAB HEMETOLOGY METHOD 09/14/2024 11:27 AM [facility] NRBC Absolute 0.00 <0.10 K/mcL LAB HEMETOLOGY METHOD 09/14/2024 11:27 AM [facility] Neutrophils Relative 74.3 % LAB HEMETOLOGY METHOD 09/14/2024 11:27 AM [facility] Lymphocytes Relative 18.2 % LAB HEMETOLOGY METHOD 09/14/2024 11:27 AM [facility] Monocytes Relative 5.6 % LAB HEMETOLOGY METHOD 09/14/2024 11:27 AM [facility] Eosinophils Relative 0.8 % LAB HEMETOLOGY METHOD 09/14/2024 11:27 AM [facility] Basophils Relative 0.4 % LAB HEMETOLOGY METHOD 09/14/2024 11:27 AM [facility] Immature Granulocytes Relative 0.7 % LAB HEMETOLOGY METHOD 09/14/2024 11:27 AM [facility] Neutrophils Absolute 10.04(H) 1.50 - 7.00 K/mcL LAB HEMETOLOGY METHOD 09/14/2024 11:27 AM EDT [facility] Lymphocytes Absolute 2.46 1.00 - 5.00 K/[facility] HEMETOLOGY METHOD 09/14/2024 11:27 AM EDT [facility] Monocytes Absolute 0.76 0.20 - 1.00 K/[facility] HEMETOLOGY METHOD 09/14/2024 11:27 AM EDT [facility] Eosinophils Absolute 0.11 0.00 - 0.50 K/[facility] HEMETOLOGY METHOD 09/14/2024 11:27 AM EDT [facility] Basophils Absolute 0.06 0.00 - 0.20 K/[facility] HEMETOLOGY METHOD 09/14/2024 11:27 AM EDT [facility] Immature Granulocytes Absolute 0.09(H) 0.00 - 0.03 K/[facility] HEMETOLOGY METHOD 09/14/2024 11:27 AM EDT [facility] Blood Venous blood specimen / Unknown Venipuncture / Unknown 09/14/2024 10:41 AM EDT 09/14/2024 11:05 AM EDT us Juan Sorto DO LAB BLOOD ORDERABLES Final Result [facility] [address] [place] [address], * Activated partial thromboplastin time (09/14/2024 10:41 AM EDT) aPTT 33.5 24.1 - 39.3 sec LAB COAGULATION METHOD 09/14/2024 11:27 AM EDT [facility] Blood Venous blood specimen / Unknown Venipuncture / Unknown 09/14/2024 10:41 AM EDT 09/14/2024 11:05 AM EDT us Juan C Cauchon DO LAB BLOOD ORDERABLES Final Result Performing Organization Address [facility] Co de Phone Number [facility] [address] [place] [address], [place] [phone] * Prothrombin time with INR (09/14/2024 10:41 AM EDT) Protime 12.2 10.6 - 13.9 sec LAB COAGULATION METHOD 09/14/2024 11:27 AM EDT [facility] INR 1.0 LAB COAGULATION METHOD 09/14/2024 11:27 AM EDT [facility] Blood Venous blood specimen / Unknown Venipuncture / Unknown 09/14/2024 10:41 AM EDT 09/14/2024 11:05 AM EDT Juan Sorto DO LAB BLOOD ORDERABLES Final Result Performing Organization Address [facility] de Phone Number [facility] [address] [place] [address], [place] [phone] * Alanine aminotransferase (09/14/2024 10:41 AM EDT) ALT (SGPT) 49 10 - 60 unit/L LAB CHEMISTRY METHOD 09/14/2024 12:15 PM EDT [facility] Blood Venous blood specimen / Unknown Venipuncture / Unknown 09/14/2024 10:41 AM EDT 09/14/2024 11:05 AM EDT Javed Ruiz DO LAB BLOOD ORDERABLES Final Res ult Performing Organization Address [facility]/ZIP Co de Phone Number [facility] [address] [place] [address], [place] [phone] * Aspartate aminotransferase (09/14/2024 10:41 AM EDT) AST (SGOT) 23 10 - 42 unit/L LAB CHEMISTRY METHOD 09/14/2024 12:15 PM EDT [facility] Blood Venous blood specimen / Unknown Venipuncture / Unknown 09/14/2024 10:41 AM EDT 09/14/2024 11:05 AM EDT us Javed Ruiz DO LAB BLOOD ORDERABLES Final Res ult Performing Organization Address [facility]/ZIP Co de Phone Number [facility] [address] [place] [address], [place] [phone] * (ABNORMAL) Alkaline phosphatase (09/14/2024 10:41 AM EDT) Alkaline Phosphatase 39(L) 42 - 121 unit/L LAB CHEMISTRY METHOD 09/14/2024 12:15 PM EDT [facility] Blood Venous blood specimen / Unknown Venipuncture / Unknown 09/14/2024 10:41 AM EDT 09/14/2024 11:05 AM EDT us Javed Ruiz DO LAB BLOOD ORDERABLES Final Res ult Performing Organization Address [facility] de Phone Number [facility] [address] [place] [address], [place] [phone] * Magnesium (09/14/2024 10:41 AM EDT) Magnesium 2.0 1.9 - 2.6 mg/dL LAB CHEMISTRY METHOD 09/14/2024 12:45 PM EDT [facility] Blood Venous blood specimen / Unknown Venipuncture / Unknown 09/14/2024 10:41 AM EDT 09/14/2024 11:05 AM EDT us Javed Ruiz DO LAB BLOOD ORDERABLES Final Res ult Performing Organization Address City/[facility]/ZIP Co de Phone Number [facility] [address] [place] [address], [place] [phone] * Lipase (09/14/2024 10:41 AM EDT) Lipase 28 13 - 75 unit/L LAB CHEMISTRY METHOD 09/14/2024 12:15 PM EDT [facility] Blood Venous blood specimen / Unknown Venipuncture / Unknown 09/14/2024 10:41 AM EDT 09/14/2024 11:05 AM EDT Javed Ruiz LAB BLOOD ORDERABLES Final Res ult Performing Organization Address [facility]/ZIP Co de Phone Number [facility] [address] [place] [address], [place] [phone] * Bilirubin, total (09/14/2024 10:41 AM EDT) Total Bilirubin 0.4 0.0 - 1.4 mg/dL LAB CHEMISTRY METHOD 09/14/2024 12:15 PM EDT [facility] Blood Venous blood specimen / Unknown Venipuncture / Unknown 09/14/2024 10:41 AM EDT 09/14/2024 11:05 AM EDT Javed Ruiz LAB BLOOD ORDERABLES Final Res ult Performing Organization Address [facility]/ZIP Co de Phone Number [facility] [address] [place] [address], [place] [phone] * IBD diagnositic assay (09/09/2024 11:35 AM EDT) Pathologist [facility] IBD SGI Diagnostic See Below 10/08/2024 2:03 PM EDT [facility] Comment: IBD sgi DIAGNOSTIC SEE REPORT UNDER SEPARATE COVER. REPORT WILL BE SENT TO THE ORDERING LABORATORY VIA PRINTER OR FAX. ADDITIONAL COPIES OF THE ORIGINAL REPORT MAY ALSO BE OBTAINED BY CALLING [facility]IENT [facility] at [phone]. Blood Venous blood specimen / Unknown Venipuncture / Unknown 09/09/2024 11:35 AM EDT 09/09/2024 11:35 AM EDT [facility] BLOOD ORDERABLES Edited R esult - Final [facility] [address] [place] [address] * (ABNORMAL) C-reactive protein (09/09/2024 11:35 AM EDT) [facility] C-Reactive Protein 0.92(H) <=0.50 mg/dL LAB CHEMISTRY METHOD 09/09/2024 3:18 PM EDT [facility] Blood Venous blood specimen / Unknown Venipuncture / Unknown 09/09/2024 11:35 AM EDT 09/09/2024 11:35 AM EDT [facility] BLOOD ORDERABLES Final Re sult [facility] [address] [place] [address], * Colonoscopy (10/21/2023) [facility] Colonoscopy abstracted, no interpretation Anatomical Region Laterality Modality Other Historical Provider HEALTH MAINTENANCE Final Result * Hemoglobin A1c (03/03/2020) [facility] Hemoglobin A1C 6.2 <=6.5 % Blood Venous blood specimen / Unknown Historical Provider LAB BLOOD ORDERABLES Amber l Result from Last 3 Months or Most Recently Relevant to Health Maintenance Insurance [employer] Advance Directives Documents on File Type Date Recorded Patient Pattern Vault Clerk Expl anation Health Care Decision (hx) 01/02/2017 AD BEDOLLA DIRECTIVE Health Care Decision (hx) 01/02/2017 AD BEDOLLA DIRECTIVE Health Care Decision (hx) 01/02/2017 AD BEDOLLA DIRECTIVE Health Care Decision (hx) 01/02/2017 AD BEDOLLA DIRECTIVE * Full Code - Default (Latest Code Status on File) Date Activated Date Inactivated Comments 09/14/2024 2:53 PM 09/15/2024 4:52 PM This is orde r is used when code status has not been discussed with the patient, or code status is otherwise unknown/unconfirmed To update the patient's code status, place a code status order. Do not modify or discontinue any currently active code status orders. Care Teams Production Inspector Relationship Specialty Start Date End Date Daniel Cisneros MD [address] [place] [address] [address] [place], [place] PCP - General Internal Medicine 01/25/18
--- OUTSIDE RECORDS SUMMARY | 2024-11-06 13:09 | XMS_ITS | Clinical Summary ---
Author Organization [facility] Address [address] [place] [address] Phone Care Team Providers Care Sales Operations Analyst Name Role Phone Daniel Cisneros MD Primary Care Provider [phone] Allergies Active Allergy Reactions Criticality Noted Date Comments Morphine Other (see comments) 09/17/2016 Other reaction(s): shortness of breath and break out in rash Medications omeprazole (PriLOSEC) [address] capsule Take 20 mg by mouth in the morning and 20 mg in the evening. Do not crush or chew. . Active cyclobenzaprine (FLEXERIL) 10 MG tablet Take 20 mg by mouth if needed for muscle spasms Active gabapentin (NEURONTIN) 300 MG capsule Take 300 mg by mouth in the morning and 300 mg in the evening and 300 mg before bedtime. Active benazepril (LOTENSIN) 10 MG tablet Take 10 mg by mouth in the morning and 10 mg in the evening. Active amLODIPine (NORVASC) 10 MG tablet Take 10 mg by mouth 1 (one) time each day Active atorvastatin (LIPITOR) 20 MG tablet Take 20 mg by mouth 1 (one) time each day Active sertraline (ZOLOFT) 50 MG tablet Take 50 mg by mouth 1 (one) time each day Active Empagliflozin (Jardiance) 10 MG tablet Take 10 mg by mouth 1 (one) time each day in the morning Active insulin glargine (LANTUS) 100 UNIT/ML injection Inject under the skin every night Active aspirin (ST JEFERSON) 81 MG EC tablet Take 81 mg by mouth 1 (one) time each day Active SITagliptin-met FORMIN (JANUMET) 50-1000 MG per tablet Take 1 tablet by mouth in the morning and 1 tablet in the evening. Take with meals. Active Active Problems Problem Noted Date Diagnosed Date Acute nontraumatic kidney injury 05/24/2022 Anxiety 05/24/2022 Chronic kidney disease stage 3 05/24/2022 Hypertensive disorder 05/24/2022 Obese class II 05/24/2022 Sleep apnea 05/24/2022 Other and unspecified hyperlipidemia 05/24/2022 Renal stone 05/24/2022 Chronic kidney disease, stage 2 (mild) Immunizations Immunization Administration Dates Next Due Pneumococcal Polysaccharide 07/01/2019 Family History Medical History Relation Comments Hypertension Father Diabetes Mother Relation Status Comments Father Alive Mother Alive Social History Tobacco Use Types Packs/Day Years Used Date Smoking Tobacco: Never Smokeless Tobacco: Never Tobacco Cessation:Counseling Given: Not Answered Alcohol Use Standard Drinks/Week Comments No 0 (1 standard drink = 0.6 oz pur e alcohol) Sex and Gender Information Value Date Recorded Sex Assigned at Not on file Legal Sex Male 4:50 PM EST Gender Identity Not on file Sexual Orientation Not on file Last Filed Vital Signs Vital Sign Reading Time Taken Comments Blood Pressure 125/76 05/24/2022 2:34 PM EST Pulse 99 05/24/2022 2:34 PM EST Temperature - - Respiratory Rate - - Oxygen Saturation 96% 05/22/2019 12:00 PM EST Inhaled Oxygen Concentration - - Weight 93 kg (205 lb) 05/24/2022 2:34 PM EST Height 167.6 cm (5' 6 ) 11/27/2019 12:00 PM EDT Body Mass Index 33.09 11/27/2019 12:00 PM EDT Plan of Treatment Health Maintenance Due Date Last Done Comments Hepatitis B Vaccine (1 of 3 - 19+ 3-dose series) 09/28 Pneumococcal Vaccine: 50+ Years (2 of 2 - PCV) 021 07/01/2019 Colorectal Cancer Screening: Annual FOBT 2021 Colorectal Cancer Screening: Colonoscopy 2021 Colorectal Cancer Screening: Sigmoidoscopy 2021 Influenza Vaccine (#1) 2024 Pneumococcal Vaccine: Peds ( 0 to 5 Years) and At-Risk Patients (6 to 49 Years) Discontinued 07/01/2019 Care Teams Sales Operations Analyst Relationship Specialty Start Date End Date Daniel Cisneros MD [facility] [address] [place] [address] [address] [place], [place] PCP - General 04/11/20
--- OUTSIDE RECORDS SUMMARY | 2024-11-06 13:09 | XMS_ITS | Clinical Summary ---
Author Organization [facility] Address [address] [place] [address] Care Team Providers Care Signal Worker Name Role Phone Daniel Cisneros MD Primary Care Provider [phone] Allergies Active Allergy Reactions Criticality Noted Date [...] (1 of 2) 2022 Influenza Vaccine (#1) 2024 Pneumococcal Vaccine Aged Out No long er eligible based on patient's age to complete this topic RSV Ped < 20 months Aged Out No longe r eligible based on patient's age to complete this topic Care Teams Signal Worker Relationship Specialty Start Date End Date Daniel Cisneros MD [address] [facility] [address] [place] [address] PCP - General Geriatric Medicine 09/08/16
[2024-11-13 12:29] VITALS: BP 144/100; PULSE 69; RESP 17; O2SAT 98; BMI 36.8
--- NOTE | 2024-11-13 12:44 | HO.ANESPROP2 ---
HPI - Anesthesia Eval Consult details Narrative: 54 yr old male for hemorrhoidectomy No CP/SOB with playing softball, golf, bowling. H/O mitral regurgitation status post mitral valve repair in 2017. *see echo report below. NALINI: no CPAP due to anxiety with having mask on face. Type 2 DM: A1C updated with PCP per pt, well controlled per pt Renal insufficiency: has followed with Dr. Mane, no recent visit per pt Recent Crohn's diagnosis: on budesonide Rule out CVA at [facility] 09/15/24, vertigo versus subacute stroke, patient has some visual disturbance associated to his symptoms and lasted a couple of weeks before he was referred to the ED, CT scan without contrast and CT angiogram of head and neck were unrevealing, orthostatic MRI of the brain was ordered and the patient refused. On oxcarbazepine for depression, anxiety, insomnia. Anesthesia Pre-Procedure Meds Is the patient on any of the following meds?: SGLT2 Inhib PMFSH Active Problems Active Problems: All Active Problems Bleeding grade III hemorrhoids (Acute) Gastritis and duodenitis (Acute) Gastric ulcer (Acute) Abdominal pain, left upper quadrant (Acute) Back pain (Acute) Muscle strain (Acute) Urinary retention (Acute) Abdominal wall seroma (Acute) S/P colostomy takedown (Acute) Sigmoid diverticulitis (Acute) Hypertension (Acute) Past Medical History Medical History (Updated 11/13/24 @ 12:45 by Faye Spears RN) Bleeding hemorrhoid Chronic renal insufficiency HTN (hypertension) Leukocytosis Depression IBS (irritable bowel syndrome) SOB (shortness of breath) Pericardial effusion Vertigo Blurry vision Obesity Elevated blood pressure reading Hypertension, uncontrolled Renal insufficiency Sleep apnea Diabetes Lower GI bleed Diverticulosis Hematochezia Right ankle pain History of diverticulitis Mitral valve disease Anxiety GERD (gastroesophageal reflux disease) Constipation Hyperlipidemia Hypertension Family History Family History Mother Diabetes mellitus Father Diabetes mellitus Family history of problems with anesthesia: No Surgical History Surgical History (Updated 11/13/24 @ 12:14 by Faye Spears RN) History of ankle surgery S/P mitral valve repair (~2017) History of colostomy reversal History of esophagogastroduodenoscopy (EGD) History of colonoscopy Status post Ammy procedure (10/21/19) History of Problems with Anesthesia: No Social History Social History Household Members: Significant Other Housing: Apartment Are you a primary career coach to a significant other at home: No Do you presently have visiting nurse or other home services: No Unable to assess alcohol history related to: Unable to respond Alcohol intake: current Alcohol intake frequency: does not drink Alcohol type: beer and hard liquor Comment: PT SLEEPING Patient Tobacco Use Status: Never used Tobacco Second Hand Smoke Exposure: No Substance Use Type: Marijuana Advance Directives Date on File: 02/22/20 service: No Current occupational status: unemployed Meds Allergies Allergy/AdvReac Type Severity Reaction Status Date / Time morphine (MORPHINE) Allergy Unknown HIVES, rash Verified 09/16/24 13:44 pravastatin Allergy Unknown Verified 11/12/24 13:10 Home Medications ?Medication ?Instructions ?Recorded ?Confirmed ?Last Taken ?Type aspirin 81 mg tablet,delayed 81 mg PO DAILY 12/28/19 11/13/24 01/25/22 History release (Adult Low Dose Aspirin) atorvastatin 20 mg tablet 20 mg PO BEDTIME 12/28/19 11/13/24 01/25/22 History gabapentin 300 mg capsule 300 mg PO BID 01/07/20 11/13/24 01/25/22 History sertraline 50 mg tablet 50 mg PO DAILY 02/16/20 11/13/24 01/25/22 History amlodipine 10 mg tablet 10 mg PO DAILY 01/25/22 11/13/24 01/25/22 History empagliflozin 10 mg tablet 10 mg PO DAILY 01/25/22 11/13/24 01/25/22 History (Jardiance) sitagliptin phosphate 50 1 tab PO BID 01/25/22 11/13/24 01/25/22 History mg-metformin 1,000 mg tablet (Janumet) carvedilol 12.5 mg tablet 25 mg PO BID 07/10/23 11/13/24 Unknown History dicyclomine 20 mg tablet 20 mg PO QID PRN Abdominal 07/10/23 11/13/24 Unknown History Discomfort insulin glargine 100 unit/mL (3 12 unit subcut BEDTIME PRN 07/10/23 11/13/24 Unknown History mL) subcutaneous pen (Lantus Hyperglycemia Solostar U-100 Insulin) oxcarbazepine 300 mg tablet 300 mg PO BID 07/10/23 11/13/24 Unknown History trazodone 50 mg tablet 50 - 100 mg PO BEDTIME PRN insomnia 07/10/23 11/13/24 Unknown History benazepril 10 mg tablet 20 mg PO DAILY 11/13/24 11/13/24 Unknown History hydroxyzine HCl 25 mg tablet 25 - 50 mg PO BEDTIME PRN insomnia 11/13/24 11/13/24 Unknown History Exam Height,Weight and Vital Signs: Height 5 ft 6 in Weight 103.419 kg Last Vital Signs Pulse 69 11/13/24 12:29 Resp 17 11/13/24 12:29 BP 144/100 H 11/13/24 12:29 Pulse Ox 98 11/13/24 12:29 O2 Del Method Room Air 11/13/24 12:29 Pertinent Lab Results Pertinent Lab Results: 09/14/24 Chem profile Sodium: 137, Potassium: 3.9, Glucose: 113, BUN: 14, Creatinine: 1.24, GFR: 70, calcium: 8.9 CBC WBC: 16.0 RBC: 5.50 Hgb: 16.2 Hct: 49.9 Platelets: 220 Narrative Narrative: EKG 09/2024 NSR, nonspecific ST abnormality, rate 68. No significant changes noted when compared to ECG 09/14/24 Stress echo 07/2023 Resting echo: Normal LV size, function. Mild concentric LV hypertrophy. LVEF 60- 65% Normal right ventricular size and systolic function. Cannot completely exclude bicuspid aortic valve with small raphae. Stress echo: Left ventricle was hyperdynamic with no wall motion abnormality post exercise. No evidence of ischemia or infarct at 74% max HR. Reduced functional capacity. CT angio head/neck 09/14/24: No acute intracranial abnormality. Airway Mallampati Class: III TM Dist: >3cm Neck ROM: Full Loose/Missing/Broken Teeth: No Heart: RRR Lungs: CTAB Assessment and Plan Final Anesthetic Review Family History of Problems with Anesthesia: No History of Problems with Anesthesia: No
[2024-11-23] VITALS (18 sets, daily range): BP systolic 128–164; BP diastolic 79–104; PULSE 61–68; RESP 10–17; TEMP 36.2–36.6; O2SAT 91–100; BMI 36.0
[2024-11-23] MEDS: Lactated Ringers 1,000 ML 100 ML IVCONT (06:28)
[2024-11-23 06:35] LABS: Glucose, Whole Blood 121 mg/dL (60-115)
--- NOTE | 2024-11-23 07:18 | MHC.SHP ---
Pre-Procedural Eval Section A - 24 Hr Update-Section A only Date of Service: 11/23/24 The patient is an INPATIENT: No Changes since office visit: Yes Patient answered all questions; No Cold of Flu in the past 2 weeks, No New Medical Problems and No Changes in Medication The patient has been examined within 24 hours of the surgical procedure. The History & Physical has been completed within 30 days and I have reviewed it.: No Section B - Complete if H&P > 30 days Chief Complaint: Third degree hemorrhoids Details of Present Illness: Patient continues to have pain and irritation due to his prolapsing hemorrhoids. Relevant Family History (Specify if Yes): No Relevant Social History: None Present Medications: see Short Stay Collaborative assessment Medical History: Significant History (Sigmoid diverticulitis with perforation) History of Previous Operations: Relevant previous surgery/procedure and date(s) (Sigmoid colectomy) Allergies: Allergies Allergy/AdvReac Type Severity Reaction Status Date / Time morphine (MORPHINE) Allergy Unknown HIVES, rash Verified 11/23/24 06:24 pravastatin Allergy Unknown Verified 11/23/24 06:24 Review of Systems Sugical H&P ROS: Negative: Constitution, Cardiovascular, Respiratory, Neurological, Psychiatric, Hem-Onc, Allergic/Immunologic, Gastrointestinal, Genitourinary, Musculoskeletal and Integumentary Exam Surgical H&P Exam: Normal: HEENT, Normal: Heart, Normal: Lungs, Normal: Extremities, Normal: Abdomen and Normal: Skin Plan Diagnosis/Plan: Unchanged I have reviewed the history and physical and performed a pertinent physical examination on my patient. No changes have occurred unless specified. Time Spent With Patient Time: Total time managing care of this patient today ____ minutes.
--- NOTE | 2024-11-23 08:34 | W.PM.OPN ---
Operative Note Operative Note Date of Service: 11/23/24 Narrative: Preoperative diagnosis: Internal hemorrhoid grade 3 Postoperative diagnosis: Same Procedure: Hemorrhoidectomy x1 Surgeon: Ricco Echevarria MD Crimper Operator: Noelle Morris PA-C; Renan Medina PA-C, Jewell Daniels, MS-3, EVIN Prajapati Anesthesia: General endotracheal Indications for procedure: 54-year-old male patient presenting with complaints of painful, irritated hemorrhoids with bleeding found on examination to have a prolapsing internal hemorrhoid with evidence of bleeding. Operative findings: Grade 3 internal hemorrhoid located at the right posterior anal wall Specimen: Hemorrhoid x1 Estimated blood loss: 10 mL Complications: None Procedure details: Patient was brought to the OR and placed in a supine position. After administering general anesthesia he was placed in a prone position. Patient's perianal skin was prepped with Betadine and draped in a sterile fashion. A surgical time-out was called the consent confirmed. Local anesthesia consisting of 0.5% Sensorcaine along with lidocaine 1% with epinephrine was infiltrated in his the perianal skin circumferentially. A rectal bullet was inserted and the anal canal examined. A single markedly inflamed hemorrhoid was noted in the right posterior anal wall measuring approximately 2 cm in diameter. There was evidence of active bleeding. The hemorrhoid was grasped with a triangular clamp and a Rashida clamp placed below this. A 3-0 chromic suture was tied at the base of the clamp in a baseball type stitch placed below the Rashida clamp. The hemorrhoid was then excised above the Rashida clamp. The Rashida clamp was then removed and a running locked chromic suture used to close the mucosa from distal to proximal. Was were checked for hemostasis. A free suture of 3-0 chromic was used to assure adequate hemostasis. This was done in a [id number] fashion. Anoscopic exam was then again performed and no other abnormal hemorrhoids identified. A packing consisting of Surgicel wrapped with Xeroform and a 4 x 4 gauze was then placed in the anal canal to assure hemostasis. This was then covered with an ABD pad and paper tape. The patient was placed back into the supine position. He was awoken from anesthesia and extubated. The patient tolerated the procedure well. Sponge, instrument, and needle counts reported as correct. He was transferred to PACU in stable condition.
--- NOTE | 2024-11-23 08:52 | HO.ANESPROP2 ---
[facility] Active Problems Active Problems: All Active Problems (Updated 11/13/24 @ 13:42 by Faye Spears RN) Bleeding grade III hemorrhoids (Acute) Gastritis and duodenitis (Acute) Gastric ulcer (Acute) Abdominal pain, left upper quadrant (Acute) Back pain (Acute) Muscle strain (Acute) Urinary retention (Acute) Abdominal wall seroma (Acute) S/P colostomy takedown (Acute) Sigmoid diverticulitis (Acute) Hypertension (Acute) Past Medical History Medical History Acute Crohn's disease Bleeding hemorrhoid Chronic renal insufficiency HTN (hypertension) Leukocytosis Depression IBS (irritable bowel syndrome) SOB (shortness of breath) Pericardial effusion Vertigo Blurry vision Obesity Elevated blood pressure reading Hypertension, uncontrolled Renal insufficiency Sleep apnea Diabetes Lower GI bleed Diverticulosis Hematochezia Right ankle pain History of diverticulitis Mitral valve disease Anxiety GERD (gastroesophageal reflux disease) Constipation Hyperlipidemia Hypertension Functional capacity: independent ambulation Family History Family History Mother Diabetes mellitus Father Diabetes mellitus Family history of problems with anesthesia: No Surgical History Surgical History History of ankle surgery S/P mitral valve repair (~2017) History of colostomy reversal History of esophagogastroduodenoscopy (EGD) History of colonoscopy Status post Ammy procedure (10/21/19) History of Problems with Anesthesia: No Social History Social History Household Members: Significant Other Housing: Apartment Are you a primary care management assistant to a significant other at home: No Do you presently have visiting nurse or other home services: No Unable to assess alcohol history related to: Unable to respond Alcohol intake: current Alcohol intake frequency: holidays/special occasions only Alcohol type: beer and hard liquor Comment: PT SLEEPING Patient Tobacco Use Status: Never used Tobacco Second Hand Smoke Exposure: No Use of substances other than those prescribed or required for medical reasons: Yes Substance Use Type: Marijuana Substance Use Frequency: Daily Have you been hit, kicked, punched, or otherwise hurt by someone within the past year? If so, by whom?: No Are you DNR?: No Advance Directives: Yes Advance Directives Information Provided: No Advance Directives on File: Yes Advance Directives Date on File: 02/22/20 Poor oral hygiene: No service: No Current occupational status: unemployed Meds Allergies Allergy/AdvReac Type Severity Reaction Status Date / Time morphine (MORPHINE) Allergy Unknown HIVES, rash Verified 11/23/24 06:24 pravastatin Allergy Unknown Verified 11/23/24 06:24 Active Medications: Current Medications Lactated Ringer's (Lr) 1,000 mls @ 100 mls/hr IVCONT .Q10H SHARIF Last Admin: 11/23/24 06:28 Dose: 100 mls/hr Home Medications ?Medication ?Instructions ?Recorded ?Confirmed ?Last Taken ?Type aspirin 81 mg tablet,delayed 81 mg PO DAILY 12/28/19 11/23/24 11/19/24 History release (Adult Low Dose Aspirin) atorvastatin 20 mg tablet 20 mg PO BEDTIME 12/28/19 11/23/24 01/25/22 History gabapentin 300 mg capsule 300 mg PO BID 01/07/20 11/23/24 01/25/22 History sertraline 50 mg tablet 50 mg PO DAILY 02/16/20 11/23/24 01/25/22 History amlodipine 10 mg tablet 10 mg PO DAILY 01/25/22 11/23/24 01/25/22 History empagliflozin 10 mg tablet 10 mg PO DAILY 01/25/22 11/23/24 11/10/24 History (Jardiance) sitagliptin phosphate 50 1 tab PO BID 01/25/22 11/23/24 11/13/24 History mg-metformin 1,000 mg tablet (Janumet) carvedilol 12.5 mg tablet 25 mg PO BID 07/10/23 11/23/24 Unknown History dicyclomine 20 mg tablet 20 mg PO QID PRN Abdominal 07/10/23 11/23/24 Unknown History Discomfort insulin glargine 100 unit/mL (3 12 unit subcut BEDTIME PRN 07/10/23 11/23/24 Unknown History mL) subcutaneous pen (Lantus Hyperglycemia Solostar U-100 Insulin) oxcarbazepine 300 mg tablet 300 mg PO BID 07/10/23 11/23/24 Unknown History trazodone 50 mg tablet 50 - 100 mg PO BEDTIME PRN insomnia 07/10/23 11/23/24 Unknown History benazepril 10 mg tablet 20 mg PO DAILY 11/13/24 11/23/24 Unknown History budesonide 3 mg 9 mg PO QAM 11/13/24 11/23/24 Unknown History capsule,delayed,extended release hydroxyzine HCl 25 mg tablet 25 - 50 mg PO BEDTIME PRN insomnia 11/13/24 11/23/24 Unknown History Exam Height,Weight and Vital Signs: Height 5 ft 6 in Weight 101.2 kg Last Vital Signs Temp 97.5 F 11/23/24 06:30 Pulse 62 11/23/24 06:30 Resp 17 11/23/24 06:30 BP 153/99 H 11/23/24 06:30 Pulse Ox 98 11/23/24 06:30 O2 Del Method Room Air 11/23/24 06:30 Pertinent Lab Results Pertinent Lab Results: Laboratory Tests 11/23/24 06:32 POC Glucose 121 H Airway Mallampati Class: III TM Dist: >3cm Neck ROM: Full Heart: RRR Lungs: CTA Assessment and Plan Assessment Anesthesia Assessment: Anesthesia Plan Discussed and Chart Reviewed Final Anesthetic Review Family History of Problems with Anesthesia: No History of Problems with Anesthesia: No NPO: Yes ASA Class: III Final Preanesthetic Review: Meds/Allgs Chart Reviewed, Consent Obtained/Reviewed and Anes Risks/Benef Reviewed Patient Risk: Intermediate Procedure Risk: Low Anesthetic Plan Anesthetic Plan: GA Disposition: Standard PACU
[2024-11-23] MEDS: oxyCODONE HCl Immed Release 5 MG TABLET PO (10:19)
--- NOTE | 2024-11-23 14:54 | HO.POSTANES ---
Post Anesthesia Evaluation Post Anesthesia Evaluation Date of Service: 11/23/24 Vital Signs: Vital Signs Temp Pulse Resp BP Pulse Ox O2 Del Method O2 Flow Rate 11/23/24 10:45 97.1 F 65 17 161/93 H 95 Room Air 11/23/24 10:30 65 12 133/96 H 92 Room Air 11/23/24 10:17 64 11 L 142/79 H 97 Nasal Cannula with ETCO2 2 11/23/24 10:12 68 17 128/84 95 Nasal Cannula with ETCO2 2 11/23/24 10:12 17 11/23/24 09:56 63 12 164/98 H 93 Nasal Cannula with ETCO2 2 11/23/24 09:51 14 11/23/24 09:51 65 14 149/102 H 95 Nasal Cannula with ETCO2 2 11/23/24 09:46 61 15 156/104 H 93 Nasal Cannula with ETCO2 2 11/23/24 09:46 15 11/23/24 09:33 67 16 155/104 H 97 Room Air 11/23/24 09:28 61 14 150/102 H 96 Room Air 11/23/24 09:28 14 11/23/24 09:23 63 14 148/103 H 100 Simple Mask 5 11/23/24 09:23 14 11/23/24 09:20 62 14 140/92 H 100 Simple Mask 5 11/23/24 09:13 14 11/23/24 09:13 61 16 157/97 H 100 Simple Mask 10 11/23/24 09:07 15 11/23/24 08:57 66 11 L 150/92 H 91 L Simple Mask 10 11/23/24 08:52 65 15 148/93 H 95 Simple Mask 10 11/23/24 08:47 63 10 L 129/87 92 Simple Mask 10 11/23/24 08:42 97.9 F 63 16 139/79 94 Simple Mask 10 11/23/24 06:30 97.5 F 62 17 153/99 H 98 Room Air Anesthesia: General LMA Mental Status: Awake Pain Control: Satisfactory Nausea/Vomiting: None Hydration: Adequate Anesthesia-Related Issues: No Anes. Related Issues
== END 2024-11-23 11:17 | disposition home or self-care (01) ==
PROVIDERS: PCP Internal Medicine; Visit Provider Surgery
PROC: (CPT 46255; principal; 2024-11-23 07:30)
DX: K64.2 Third degree hemorrhoids (principal); K57.30 Diverticulosis of large intestine without perforation or abscess without bleeding; K59.00 Constipation, unspecified; Z87.19 Personal history of other diseases of the digestive system; K21.9 Gastro-esophageal reflux disease without esophagitis; I10 Essential (primary) hypertension; E78.5 Hyperlipidemia, unspecified; E11.9 Type 2 diabetes mellitus without complications; N28.9 Disorder of kidney and ureter, unspecified; E66.9 Obesity, unspecified; Z68.34 Body mass index [BMI] 34.0-34.9, adult; Z79.82 Long term (current) use of aspirin; Z79.1 Long term (current) use of non-steroidal anti-inflammatories (NSAID); Z79.4 Long term (current) use of insulin; Z79.84 Long term (current) use of oral hypoglycemic drugs; Z79.899 Other long term (current) drug therapy; Z88.5 Allergy status to narcotic agent; Z98.890 Other specified postprocedural states
CPT/HCPCS: 46255; 82947; 88304; J0131; J1100; J1885; J2003; J2004; J2250; J2405; J2704; J2795; J3010

== ENCOUNTER → 2024-11-23 05:40 | Outpatient (BNV) | payer OTHER, SELFPAY | PROVIDERS: PCP Internal Medicine; Visit Provider Surgery | DX: K64.8 Other hemorrhoids (principal) | CPT/HCPCS: 46255 ==

== ENCOUNTER 2024-12-07 12:34 | Outpatient (AMB) | payer OTHER, SELFPAY ==
--- OUTSIDE RECORDS SUMMARY | 2024-03-16 15:10 | XMS_ITS | Encounter Summary ---
Author Organization [facility] Address [address] [facility] [address] [place] [phone] Phone Care Team Providers Care Student Loan Counselor Name Role Phone Daniel Cisneros MD Primary Care Provider + Encounter Details Date Type Department Care Team (Late st Contact Info) Description 03/16/2024 2:10 PM EST Hospital Encounter [facility] [address] [place] [phone] Gloria Patricio, PROTECTIVE SIGNAL OPERATOR [address] [place] [address] [email or web address] Social History Tobacco Use Types Packs/Day Years [...] originally createdby Malik Salazar MD. Gloria Patricio PROTECTIVE SIGNAL OPERATOR IMG XR UPPER EXTREMITY Final Result documented in this encounter Visit Diagnoses Not on filedocumented in this encounter Care Teams Student Loan Counselor Relationship Specialty Start Date End Date Daniel Cisneros MD [address] [facility] [address] [place] [phone] PCP - General Internal Medicine 03/16/24 documented as of this encounter Additional Source Comments The information contained in this document represents components of the legal health record. It is not the complete legal health record.[facility]
--- NOTE | 2024-12-07 12:56 | A.OFFVIS_ITS ---
Vital Signs 12/07/24 13:07 Height 5 ft 6 in Weight 229 lb 4 oz BMI 37.0 BP 177/91 H Blood Pressure Location Lt brachial Position Sitting Pulse 71 Intake Visit Reasons: 3rd degree hemorrhoids Intake Note: Patient is seen in office for post op assessment post hemorrhoidectomy. Pt c/o: admits to increase pain, straining, taking stool softener as naked surgery:11/23/24 Entry Level Account Executive Required: No Accompanied by: Other Relationship Allergies morphine (MORPHINE) Allergy (Unknown, Verified 12/07/24 13:06) HIVES, rash pravastatin Allergy (Verified 12/07/24 13:06) Unknown HPI Comments Details: Kenan returns today 2 weeks following hemorrhoidectomy for grade 3 prolapsing and bleeding hemorrhoid. He continues to have some hemorrhoid pain especially with sitting and occasionally needs narcotic for pain relief. He is moving his bowels daily but does note increased pain after having a bowel movement. He has been taking Colace to help with his bowels. He denies any bleeding this time but does occasionally have some leakage noted. [facility] Medical History Acute Crohn's disease Bleeding hemorrhoid Chronic renal insufficiency HTN (hypertension) Leukocytosis Depression IBS (irritable bowel syndrome) SOB (shortness of breath) Pericardial effusion Vertigo Blurry vision Obesity Elevated blood pressure reading Hypertension, uncontrolled Renal insufficiency Sleep apnea Diabetes Lower GI bleed Diverticulosis Hematochezia Right ankle pain History of diverticulitis Mitral valve disease Anxiety GERD (gastroesophageal reflux disease) Constipation Hyperlipidemia Hypertension Surgical History Hx of hemorrhoidectomy (11/23/24) History of ankle surgery S/P mitral valve repair (~2017) History of colostomy reversal History of esophagogastroduodenoscopy (EGD) History of colonoscopy Status post Ammy procedure (10/21/19) Family History Mother Diabetes mellitus Father Diabetes mellitus Social History Household Members: Significant Other Housing: Apartment Are you a primary summer child caregiver to a significant other at home: No Do you presently have visiting nurse or other home services: No Unable to assess alcohol history related to: Unable to respond Alcohol intake: current Alcohol intake frequency: holidays/special occasions only Alcohol type: beer and hard liquor Comment: PT SLEEPING Patient Tobacco Use Status: Never used Tobacco Second Hand Smoke Exposure: No Substance Use Type: Marijuana Advance Directives Date on File: 02/22/20 service: No Current occupational status: unemployed Review of Systems Const All systems reviewed & are unremarkable except as noted in HPI and below Physical Exam Vital Signs: Last Vital Signs Pulse 71 12/07/24 13:07 BP 177/91 H 12/07/24 13:07 BMI result Body Mass Index 37.0 Const General: no acute distress Nutritional Appearance: well nourished Orientation/consciousness: patient oriented x3 Limitations: no limitations Resp Effort & Inspection: normal respiratory effort Back/Spine/Pelvis Other: Anal examination reveals no evidence of infection, bleeding or discharge. Incision is clean and intact. Normal inflammatory changes noted near the incision. Neuro General: patient oriented x3 Assessment & Plan Assessment & Plan (1) Bleeding grade III hemorrhoids: Code(s): K64.2 - Third degree hemorrhoids Category: Medical Plan Continue warm soaks or Sitz baths daily Add lidocaine gel to help with pain relief as well as hydrocortisone anal cream. Follow up in 2 weeks. Medications: New lidocaine 4% 1 appl topical TID PRN 30 grams 0RF pain K64.2 - Third degree hemorrhoids hydrocortisone-pramoxine 2.5-1 % 1 appl [place] BID PRN 30 grams 0RF itching K64.2 - Third degree hemorrhoids Coding Level of Care Code Global (57558) Diagnoses Bleeding grade III hemorrhoids K64.2
[2024-12-07 13:07] VITALS: BP 177/91; PULSE 71; BMI 37.0
--- OUTSIDE RECORDS SUMMARY | 2024-12-07 14:47 | XMS_ITS | Clinical Summary ---
Author Organization [facility] Address [address] [place] [address] Care Team Providers Care Legal Operations Manager Name Role Phone Daniel Cisneros MD Primary Care Provider [phone] Allergies Active Allergy Reactions Criticality Noted Date [...] age to complete this topic Care Teams Legal Operations Manager Relationship Specialty Start Date End Date Daniel Cisneros MD [address] [facility] [address] [place] [id number] PCP - General Geriatric Medicine 09/08/16
--- OUTSIDE RECORDS SUMMARY | 2024-12-07 14:47 | XMS_ITS | Clinical Summary ---
Author Organization [facility] Address [address] [place] [address] Phone Care Team Providers Care Track Service Person Name Role Phone Daniel Cisneros MD Primary Care Provider [phone] Allergies Active Allergy Reactions Criticality Noted Date [...] times a day with meals. 4 Active SITagliptin-met FORMIN (Janumet) 50-1,000 mg per tablet Take 1 [...] 2 times daily, Informant: Self, Reported on 11/16/2024 dicyclomine (BENTYL) 20 mg tablet Take 1 [...] 270 each 1 5 10/09/19 26 Active Active Problems Problem Noted Date Diagnosed [...] no stenosis noted on echo 05/2023 at [facility] Atypical chest pain 04/27/2020 Overview (09/14/2024): -Exercise stress echocardiogram 07/2023 where he was only able to exercise for 3 minutes and 46 seconds, a 5.1 MET workload, 74% of his MPHR on his typical medications including beta-erica with mild increase of his baseline chest discomfort from 5/10-7/10, without EKG changes and without evidence of [...] Encounters Date Type Department Care Team Description 11/16/2024 11:00 AM EDT Office Visit [facility] Hematology Oncology [address] [place] [phone] Eleni Abraham MD Other elevated white blood cell count 11/11/2024 9:03 AM EDT - 11/11/2024 11:59 PM EDT Hospital Encounter [facility] CT Scan [address] [place] [phone] Lower abdominal pain; Colitis; Diarrhea, unspecified type Discharge Disposition: Home or Self Care 11/06/2024 Telephone Gastroenterology [facility] [address] [facility] [address] [place] [phone] Babs Temple PA 10/16/2024 Telephone [facility] Cardiology [facility] [address] [place] [phone] Claire Kaur NP 10/13/2024 9:10 AM EDT Consult [facility] Cardiology [facility] [address] [place] [phone] Claire Kaur NP Hypertension, unspecified type (Primary Dx); Atypical chest pain; SOB (shortness of breath); Mixed hyperlipidemia; Preop examination 10/11/2024 Telephone Gastroenterology [facility] [address] [place] [phone] Babs Temple PA 09/21/2024 Telephone [facility] Cardiology [facility] [address] [facility] [address] [place] [phone] Daniel Cisneros MD 09/21/2024 Telephone [facility] Cardiology [facility] [address] [place] [phone] Claire Kaur NP 09/14/2024 11:35 AM EDT - 09/15/2024 2:47 PM EDT Hospital Encounter [facility] Intermediate Care Unit [address] [place] [phone] Javed Ruiz DO Bukalo, Nermina, MD Santoyo-Pachec o, Omar D, MD Dizziness (Primary Dx) Discharge Disposition: Home or Self Care 09/14/2024 9:40 AM EDT Office Visit [facility] Cardiology [facility] [address] [place] [phone] Claire Kaur NP Dizziness (Primary Dx); Atypical chest pain; Bicuspid aortic valve; Primary hypertension; Pure hypercholesterolemi a; Status post mitral valve repair 09/09/2024 11:35 AM EDT Lab Draw Station - [address] [facility] [address] [facility] [address] [place] [phone] Lower abdominal pain; Colitis; Diarrhea, unspecified type 09/09/2024 10:50 AM EDT Office Visit Gastroenterology - [place] [address] [facility] [address] [place] [phone] Babs Temple PA Lower abdominal pain (Primary Dx); Colitis; Diarrhea, unspecified type; BRBPR (bright red blood per rectum) 09/09/2024 Telephone [facility] [address] [facility] [address] [place] [phone] Claire Kaur NP from Last 3 Months Surgical History Surgery [...] V28) DX:CKD (chronic kidney disease), stage III ([facility]) Class 1 obesity DX:Class 1 obesi ty Costochondritis Family History Medical History Relation Name Comments Heart attack Maternal Grandfather Relation Name Status Comments Father Alive Healthy Maternal Grandfather Mother Alive asthma Social History Tobacco Use Types Packs/Day Years Used Date Smoking Tobacco: Never Smokeless Tobacco: Never Tobacco Cessation:Counseling Given: Not Answered Alcohol Use Standard Drinks/Week Comments Yes 0 [...] Sign Reading Time Taken Comments Blood Pressure 156/92 11/16/2024 10:53 AM EDT Pulse 71 11/16/2024 10:53 AM EDT Temperature 37 C (98.6 F) 11/16/2024 10:53 AM EDT Respiratory Rate 18 09/15/2024 11:38 AM EDT Oxygen Saturation 98% 11/16/2024 10:53 AM EDT Inhaled Oxygen Concentration - - Weight 104 kg (229 lb) 11/16/2024 10:53 AM EDT Height 167.6 cm (5' 6 ) 11/16/2024 10:53 AM EDT Body Mass Index 36.96 11/16/2024 10:53 AM EDT Plan of Treatment Upcoming Encounters Date Type Department Care Team (Late st Contact Info) Description 12/09/2024 10:30 AM EDT Office Visit Gastroenterology [address] 175 [facility] 200 [place] [address] Babs Temple PA 175 [facility] 200 [place] [address] 12/11/2024 11:45 AM EDT Office Visit [facility] Hematology Oncology [address] [place] [phone] Eleni Abraham MD [address] [place] [address] 01/18/2025 9:15 AM EDT Consult General Surgery - [place] 175 [facility] [address] [place] [address] Valente Logan MD [address] [place] [phone] Health Maintenance Due Date Last Done Comments [...] Procedure Name Priority Date/Time Associated Diagnosis Comments CBC WITH AUTO DIFFERENTIAL Routine 11/16/2024 11:35 AM EDT Other elevated white blood cell count BCR, ABL FISH CYTOGENETICS Routine 11/16/2024 11:35 AM EDT Granulocytosis LACTATE DEHYDROGENASE Routine 11/16/2024 11:35 AM EDT Other elevated white blood cell count SEDIMENTATION RATE Routine 11/16/2024 11 :35 AM EDT Other elevated white blood cell count RETICULOCYTE COUNT Routine 11/16/2024 11 :35 AM EDT Other elevated white blood cell count CBC AND DIFFERENTIAL Routine 11/16/2024 11:35 AM EDT Other elevated white blood cell count CT ABDOMEN PELVIS W CONTRAST Routine 11/11/2024 9:31 AM EDT Lower abdominal pain Colitis Diarrhea, unspecified type ECG 12-LEAD Routine 10/14/2024 7:28 AM EDT [...] Recently Relevant to Health Maintenance Results * BCR ABL FISH CYTOGENETICS (11/16/2024 11:35 AM EDT) Scan Result See Scanned Result 11/23/2024 7:28 AM EDT [facility] Blood Venous blood specimen / Unknown Venipuncture / Unknown 11/16/2024 11:35 AM EDT 11/16/2024 12:24 PM EDT Eleni Abraham MD LAB CYTOGENETICS ORDERABLES Final Result [facility] * (ABNORMAL) CBC auto differential (11/16/2024 11:35 AM EDT) Only the most recent of3 resultswithin the time period is included. Pathologist [facility] WBC 12.3(H) 4.8 - 10.8 K/mcL LAB HEMETOLOGY METHOD 11/16/2024 1:21 PM EDT [facility] RBC 5.30 4.50 - 5.50 M/mcL LAB HEMETOLOGY METHOD 11/16/2024 1:21 PM EDT [facility] Hemoglobin 15.2 13.5 - 17.5 g/dL LAB HEMETOLOGY METHOD 11/16/2024 1:21 PM EDT [facility] Hematocrit 47.1 42.0 - 54.0 % LAB HEMETOLOGY METHOD 11/16/2024 1:21 PM EDT [facility] MCV 89.4 79.0 - 98.0 FL LAB HEMETOLOGY METHOD 11/16/2024 1:21 PM EDT [facility] MCH 28.8 27.0 - 32.0 pcg LAB HEMETOLOGY METHOD 11/16/2024 1:[address] [facility] MCHC 32.3 32.0 - 37.0 g/dL LAB HEMETOLOGY METHOD 11/16[facility]24 [facility] RDW 14.5 11.0 - 15.0 % LAB HEMETOLOGY METHOD 11/16/2024 1:[address] [facility] Platelets 283 130 - 400 K/mcL LAB HEMETOLOGY METHOD 11/16/2024 1:[address] [facility] MPV 11.7(H) 7.0 - 11.0 FL LAB HEMETOLOGY METHOD 11/16/2024 1:[address] [facility] NRBC 0.0 <1.0 % LAB HEMETOLOGY METHOD 11/16/2024 1:[address] [facility] NRBC Absolute 0.00 <0.10 K/mcL LAB HEMETOLOGY METHOD 11/16/2024 1:[address] [facility] Neutrophils Relative 69.3 % LAB HEMETOLOGY METHOD 11/16/2024 1:[address] [facility] Lymphocytes Relative 21.9 % LAB HEMETOLOGY METHOD 11/16/2024 1:[address] [facility] Monocytes Relative 6.2 % LAB HEMETOLOGY METHOD 11/16/2024 1:[address] [facility] Eosinophils Relative 0.9 % LAB HEMETOLOGY METHOD 11/16/2024 1:[address] [facility] Basophils Relative 0.4 % LAB HEMETOLOGY METHOD 11/16/2024 1:[address] [facility] Immature Granulocytes Relative 1.3 % LAB HEMETOLOGY METHOD 11/16/2024 1:[address] [facility] Neutrophils Absolute 8.49(H) 1.50 - 7.00 K/mcL LAB HEMETOLOGY METHOD 11/16/2024 1:[address] [facility] Lymphocytes Absolute 2.69 1.00 - 5.00 K/mcL LAB HEMETOLOGY METHOD 11/16/2024 1:[address] [facility] Monocytes Absolute 0.76 0.20 - 1.00 K/mcL LAB HEMETOLOGY METHOD 11/16/2024 1:21 PM EDT [facility] Eosinophils Absolute 0.11 0.00 - 0.50 K/[facility] LAB HEMETOLOGY METHOD 11/16/2024 1:21 PM EDT [facility] Basophils Absolute 0.05 0.00 - 0.20 K/[facility] LAB HEMETOLOGY METHOD 11/16/2024 1:21 PM EDT [facility] Immature Granulocytes Absolute 0.16(H) 0.00 - 0.03 K/[facility] LAB HEMETOLOGY METHOD 11/16/2024 1:21 PM EDT [facility] Blood Venous blood specimen / Unknown Venipuncture / Unknown 11/16/2024 11:35 AM EDT 11/16/2024 12:24 PM EDT Eleni Abraham MD LAB BLOOD ORDERABLES Final R esult Performing Organization Address City/[facility]/ZIP Co de Phone Number [facility] [address] [place] [address], [place] [phone] * (ABNORMAL) Sedimentation rate (11/16/2024 11:35 AM EDT) Sed Rate 25(H) 0 - 20 mm/hr LAB HEMETOLOGY METHOD 11/16/2024 1:55 PM EDT [facility] Blood Venous blood specimen / Unknown Venipuncture / Unknown 11/16/2024 11:35 AM EDT 11/16/2024 12:24 PM EDT us Eleni Abraham MD LAB BLOOD ORDERABLES Final R esult Performing Organization Address City/[facility]/ZIP Co de Phone Number [facility] [address] [place] [address], [place] [phone] * (ABNORMAL) Reticulocyte count (11/16/2024 11:35 AM EDT) Retic Ct Abs 0.110(H) 0.030 - 0.090 M/mcL LAB HEMETOLOGY METHOD 11/16/2024 1:21 PM EDT [facility] Retic Ct Pct 2.0(H) 0.7 - 1.7 % LAB HEMETOLOGY METHOD 11/16/2024 1:21 PM EDT [facility] Immature Retic Fract 29.9(H) 2.3 - 15.9 % LAB HEMETOLOGY METHOD 11/16/2024 1:21 PM EDT [facility] Reticulocyte Hemoglobin 29.9 >29.0 pcg LAB HEMETOLOGY METHOD 11/16/2024 1:21 PM EDT [facility] Blood Venous blood specimen / Unknown Venipuncture / Unknown 11/16/2024 11:35 AM EDT 11/16/2024 12:24 PM EDT Eleni Abraham MD LAB BLOOD ORDERABLES Final R esult Performing Organization Address City/[facility]/ZIP Co de Phone Number [facility] [address] [place] [address], [place] [phone] * Lactate dehydrogenase (11/16/2024 11:35 AM EDT) LDH 170 120 - 246 unit/L LAB CHEMISTRY METHOD 11/16/2024 2:05 PM EDT [facility] Blood Venous blood specimen / Unknown Venipuncture / Unknown 11/16/2024 11:35 AM EDT 11/16/2024 12:22 PM EDT us Eleni Abraham MD LAB BLOOD ORDERABLES Final R esult [facility] [address] [place] [address], [place] [phone] * CT Abdomen Pelvis w Contrast (11/11/2024 9:31 AM EDT) Anatomical Region Laterality Modality Body Computed Tomogra phy 11/11/2024 10:0 0 AM EDT Impressions 11/11/2024 10:05 AM EDT Impression: 1. Submucosal fat deposition within the terminal ileum and proximal colon, compatible with chronic inflammation. 2. Interim sigmoid colectomy sequela. FlexMinder LINDA ([id number]) -------- FINAL REPORT -------- Dictated By: Lucia Corado Dictated Date: 11/11/2024 10:00 ET Assigned Physician: Lucia Corado Reviewed and Electronically Signed By: Lucia Corado Signed Date: 11/11/2024 10:05 ET Workstation ID: [id number] Transcribed By: Self Edit Transcribed Date: 11/11/2024 10:00 ET Narrative 11/11/2024 10:05 AM EDT History: Lower abdominal pain, diarrhea, rectal bleeding. Recent colonoscopy revealed active chronic colitis. Comparison: 05/08/18 Technique: Helical volumetric imaging of the abdomen and pelvis was performed without oral contrast and during the uneventful intravenous administration of 90 cc Isovue-370. DLP: 1189.55 mGy/cm Wings Intellect[employer]CallidusCloud VCT Iterative reconstruction technique Findings: The liver is normal in size and configuration. No masses are identified. The portal vein is patent. The gallbladder is physiologically distended. No evidence of biliary obstruction is seen. The spleen, pancreas and adrenal glands are unremarkable. The kidneys are normal in position and size, with symmetric, intact nephrograms and no evidence of hydronephrosis or mass. Minimal atherosclerotic calcification of the abdominal aorta is seen. There is no ascites. No developing lymphadenopathy is seen. The prostate, seminal vesicles and urinary bladder appear unremarkable. No evidence of bowel obstruction is seen. Sigmoid colectomy sequela are noted, new from previous, with a patent colocolic anastomosis noted in the pelvis. There are scattered colonic diverticula. No evidence of diverticulitis is seen. Prominent submucosal fat deposition is seen within the wall of the cecum and proximal colon to the level of the mid transverse colon, compatible with chronic colitis. No pericolonic fat stranding is identified. The appendix is normal in caliber in the right lower quadrant. There is very mild submucosal fat deposition within the terminal ileum, with the remainder of the small bowel appearing unremarkable. A hemangioma is seen within the L5 vertebral body, unchanged. Procedure Note Lucia Corado MD - 11/11/2024 History: Lower abdominal pain, diarrhea, rectal bleeding. Recentcolonoscopy revealed active chronic colitis. Comparison: 05/08/18 Technique: Helical volumetric imaging of the abdomen and pelvis wasperformed without oral contrast and during the uneventful intravenousadministration of 90 cc Isovue-370. DLP: 1189.55 mGy/cm Yi Ji [employer]liance[employer] Iterative reconstruction technique Findings: The liver is normal in size and configuration. No masses are identified.The portal vein is patent. The gallbladder is physiologically distended.No evidence of biliary obstruction is seen. The spleen, pancreas and adrenal glands are unremarkable. The kidneys are normal in position and size, with symmetric, intactnephrograms and no evidence of hydronephrosis or mass. Minimal atherosclerotic calcification of the abdominal aorta is seen.There is no ascites. No developing lymphadenopathy is seen. The prostate, seminal vesicles and urinary bladder appear unremarkable. No evidence of bowel obstruction is seen. Sigmoid colectomy sequela arenoted, new from previous, with a patent colocolic anastomosis noted in thepelvis. There are scattered colonic diverticula. No evidence ofdiverticulitis is seen. Prominent submucosal fat deposition is seen withinthe wall of the cecum and proximal colon to the level of the midtransverse colon, compatible with chronic colitis. No pericolonic fatstranding is identified. The appendix is normal in caliber in the rightlower quadrant. There is very mild submucosal fat deposition within theterminal ileum, with the remainder of the small bowel appearingunremarkable. A hemangioma is seen within the L5 vertebral body, unchanged. IMPRESSION: Impression: 1. Submucosal fat deposition within the terminal ileum and proximal colon,compatible with chronic inflammation. 2. Interim sigmoid colectomy sequela. Lauri MCKEON ([id number]) -------- FINAL REPORT -------- Dictated By: Lucia Corado Dictated Date: 11/11/2024 10:00 ET Assigned Physician: Lucia Corado Reviewed and Electronically Signed By: Lucia Corado Signed Date: 11/11/2024 10:05 ET Workstation ID: [id number] Transcribed By: Self Edit Transcribed Date: 11/11/2024 10:00 ET Babs MCKEON IMG CT PROCEDURES Final Resul t * ECG 12 lead (10/14/2024 7:28 AM EDT) Only the most recent of3 resultswithin the time period is included. Ventricular Rate ECG 68 BPM GEMUSE Atrial Rate 68 BPM GEMUSE P-R Interval 160 ms GEMUSE QRS Duration 106 ms GEMUSE Q-T Interval 426 ms GEMUSE QTc 452 ms GEMUSE P Wave [place] 0 degrees GEMUSE R [place] 62 degrees GEMUSE T [place] 69 degrees GEMUSE ECG Interpretation Normal sinus rhythm Nonspecific ST abnormality Otherwise normal ECG When compared with ECG of 14-SEP-2024 12:03, No significant changes are noted Confirmed by Sj LOTT JOHN ([id number]) on 10/15/2024 4:32:43 PM GEMUSE 10/13/2024 9:18 AM EDT 10/15/2024 4:32 PM EDT Claire Kaur NP ECG ORDERABLES Edited Result - Final GEMUSE * ECG-Annotated (09/16/2024) us Provider Onbase MD ECG ORDERABLES Final Result * POCT Glucose, blood (09/15/2024 11:39 AM EDT) Only the most recent of3 resultswithin the time period is included. Pathologist [facility] Glucose POCT 86 70 - 100 mg/dL 09/15/2024 11:47 AM EDT [facility] Blood Capillary blood specimen / Unknown 09/15/2024 11:39 AM EDT 09/15/2024 11:48 AM EDT us Jaime Shaw MD LAB POINT OF C ARE TEST DOCKED DEVICE UNSOLICITED RESULTS Final Result Performing Organization Address City/[facility]/ZIP Co de Phone Number [facility] [address] [place] [address], [place] [phone] * (ABNORMAL) Lipid panel with reflex to direct LDL (09/15/2024 5:21 AM EDT) Cholesterol 185 0 - 200 mg/dL LAB CHEMISTRY METHOD 09/15/2024 2:18 PM EDT [facility] Triglycerides 312(H) 0 - 150 mg/dL LAB CHEMISTRY METHOD 09/15/2024 2:18 PM EDT [facility] HDL 31(L) >=40 mg/dL LAB CHEMISTRY METHOD 09/15/2024 2:18 PM EDT [facility] LDL Calculated 92 0 - 100 mg/dL LAB CHEMISTRY METHOD 09/15/2024 2:18 PM EDT [facility] VLDL Cholesterol Carlos 62.4 mg/dL LAB CHEMISTRY METHOD 09/15/2024 2:18 PM EDT [facility] Non HDL Chol. (LDL+VLDL) 154(H) <145 mg/dL LAB CHEMISTRY METHOD 09/15/2024 2:18 PM EDT [facility] Chol/HDL Ratio 6.0(H) 0.0 - 4.4 LAB CHEMISTRY METHOD 09/15/2024 2:18 PM EDT [facility] Blood Venous blood specimen / Unknown Venipuncture / Unknown 09/15/2024 5:21 AM EDT 09/15/2024 6:24 AM EDT us Jaime Shaw MD LAB BLOOD ORDERABLES F inal Result Performing Organization Address City/[facility]/ZIP Co de Phone Number [facility] [address] [place] [address], [place] [phone] * (ABNORMAL) Complete blood count (09/15/2024 5:21 AM EDT) [facility] WBC 16.0(H) 4.8 - 10.8 K/mcL LAB HEMETOLOGY METHOD 09/15/2024 6:[address] [facility] RBC 5.50 4.50 - 5.50 M/mcL LAB HEMETOLOGY METHOD 09/15/2024 6:[address] [facility] Hemoglobin 16.2 13.5 - 17.5 g/dL LAB HEMETOLOGY METHOD 09/15/2024 6:[address] [facility] Hematocrit 49.9 42.0 - 54.0 % LAB HEMETOLOGY METHOD 09/15/2024 6:[address] [facility] MCV 90.9 79.0 - 98.0 FL LAB HEMETOLOGY METHOD 09/15/2024 6:[address] [facility] MCH 29.5 27.0 - 32.0 pcg LAB HEMETOLOGY METHOD 09/15/2024 6:[address] [facility] MCHC 32.5 32.0 - 37.0 g/dL LAB HEMETOLOGY METHOD 09/15/2024 6:[address] [facility] RDW 14.3 11.0 - 15.0 % LAB HEMETOLOGY METHOD 09/15/2024 6:[address] [facility] Platelets 220 130 - 400 K/mcL LAB HEMETOLOGY METHOD 09/15/2024 6:[address] [facility] MPV 12.7(H) 7.0 - 11.0 FL LAB HEMETOLOGY METHOD 09/15/2024 6:[address] [facility] NRBC 0.0 <1.0 % LAB HEMETOLOGY METHOD 09/15/2024 6:[address] [facility] NRBC Absolute 0.00 <0.10 K/mcL LAB HEMETOLOGY METHOD 09/15/2024 6:[address] [facility] Blood Venous blood specimen / Unknown Venipuncture / Unknown 09/15/2024 5:21 AM EDT 09/15/2024 6:24 AM EDT us Lindsay White MD LAB BLOOD ORDERABLES Final Res ult [facility] [address] [place] [address], [place] [phone] * (ABNORMAL) Basic metabolic panel (09/15/2024 5:21 AM EDT) Only the most recent of2 resultswithin the time period is included. Sodium 137 133 - 145 mmol/L LAB CHEMISTRY METHOD 09/15/2024 7:[address] [facility] Potassium 3.9 3.5 - 5.5 mmol/L LAB CHEMISTRY METHOD 09/15/2024 7:[address] [facility] Chloride 104 96 - 110 mmol/L LAB CHEMISTRY METHOD 09/15/2024 7:[address] [facility] CO2 22 21 - 32 mmol/L LAB CHEMISTRY METHOD 09/15/2024 7:[address] [facility] Anion Gap 11 3 - 11 LAB CHEMISTRY METHOD 09/15/2024 7:[address] [facility] Glucose 113(H) 70 - 100 mg/dL LAB CHEMISTRY METHOD 09/15/2024 7:[address] [facility] BUN 14 5 - 25 mg/dL LAB CHEMISTRY METHOD 09/15/2024 7:[address] [facility] Creatinine 1.24 0.70 - 1.30 mg/dL LAB CHEMISTRY METHOD 09/15/2024 7:[address] [facility] eGFR 70 >=60 mL/min/1. 73m2 LAB CHEMISTRY METHOD 09/15/2024 7:08 AM EDT [facility] Comment:Calculation based on the Chronic Kidney Disease Epidemiology Collaboration (CKD-EPI) equation refit without adjustment for race. BUN/Creatinine Ratio 11.3 LAB CHEMISTRY METHOD 09/15/2024 7:08 AM EDT [facility] Calcium 8.9 8.5 - 10.5 mg/dL LAB CHEMISTRY METHOD 09/15/2024 7:08 AM EDT [facility] Blood Venous blood specimen / Unknown Venipuncture / Unknown 09/15/2024 5:21 AM EDT 09/15/2024 6:24 AM EDT us Lindsay White MD LAB BLOOD ORDERABLES Final Res ult Performing Organization Address [facility] Co de Phone Number [facility] [address] [place] [address], [place] [phone] * Troponin I high sensitivity (09/14/2024 12:47 PM EDT) Only the most recent of2 resultswithin the time period is included. High Sensitivity Troponin I 5 <=79 ng/L LAB CHEMISTRY METHOD 09/14/2024 2:15 PM EDT [facility] Blood Venous blood specimen / Unknown Venipuncture / Unknown 09/14/2024 12:47 PM EDT 09/14/2024 1:40 PM EDT Narrative [facility] - 09/14/2024 2:15 PM EDT High levels of biotin in samples may falsely decrease hsTroponin values. Use caution when interpreting hsTroponin results in patients taking biotin who exhibit renal impairment (eGFR <60) or in patients taking more than 20 mg/day of biotin. us Javed Ruiz DO LAB BLOOD ORDERABLES Final Res ult Performing Organization Address [facility]/ZIP Co de Phone Number [facility] [address] [place] [address], [place] [phone] * (ABNORMAL) Urinalysis with reflex microscopic (09/14/2024 12:33 PM EDT) Specific [place] Urine >1.045(H) 1.003 - 1.030 LAB URINALYSIS - AUTOMATED METHOD 09/14/2024 1:[address] [facility] pH, Urine 6.0 5.0 - 8.0 pH LAB URINALYSIS - AUTOMATED METHOD 09/14/2024 1:[address] [facility] Leukocytes, Urine Negative Negative LAB URINALYSIS - AUTOMATED METHOD 09/14/2024 1:[address] [facility] Nitrite, Urine Negative Negative LAB URINALYSIS - AUTOMATED METHOD 09/14/2024 1:[address] [facility] Protein, Urine Negative <=Trace mg/dL LAB URINALYSIS - AUTOMATED METHOD 09/14/2024 1:[address] [facility] Glucose, Urine >=1000(A) Negative mg/dL LAB URINALYSIS - AUTOMATED METHOD 09/14/2024 1:[address] [facility] Ketones, Urine Negative Negative mg/dL LAB URINALYSIS - AUTOMATED METHOD 09/14/2024 1:[address] [facility] Urobilinogen , Urine 0.2 0.2 - 1.0 mg/dL LAB URINALYSIS - AUTOMATED METHOD 09/14/2024 1:[address] [facility] Bilirubin, Urine Negative Negative LAB URINALYSIS - AUTOMATED METHOD 09/14/2024 1:[address] [facility] Blood, Urine Negative Negative LAB URINALYSIS - AUTOMATED METHOD 09/14/2024 1:[address] [facility] Urine Urine specimen obtained by clean catch procedure / Unknown Non-blood Collection / Unknown 09/14/2024 12:33 PM EDT 09/14/2024 12:52 PM EDT us Javed Ruiz DO LAB URINE ORDERABLES Final Res ult [facility] [address] [place] [address], [place] [phone] * CT Angio Head/Neck Stroke wo and/or [...] Signed Date: 09/14/2024 12:51 ET Workstation ID: [id number] Transcribed By: Self Edit Transcribed Date: 09/14/2024 [...] Omnipaque 370 injected. Scan was analyzed using Viz Contact AI based computer aided triage software. [...] is patent. Vertebrobasilar system is patent. Proximal bird raiser are patent. origin right QUILL FIXER. Major dural venous sinuses opacify normally with [...] 90cc Omnipaque 370 injected. Scan wasanalyzed using Wireless Safety Contact AI based computer aided triage software. [...] is patent. Vertebrobasilar system is patent. Proximal bird raiser are patent. originright QUILL FIXER. Major dural venous sinuses opacify normally with contrast. Polypoid mucosal thickening versus retention cyst left maxillary sinus.Degenerative changes in the bones. Calvarial defect at the posteriorvertex. IMPRESSION: NO ACUTE INTRACRANIAL ABNORMALITY. -------- FINAL REPORT -------- Dictated By: Tanvir Ramon Dictated Date: 09/14/2024 12:39 ET Assigned Physician: Tanvir Ramon Reviewed and Electronically Signed By: Tanvir Ramon Signed Date: 09/14/2024 12:51 ET Workstation ID: [id number] Transcribed By: Self Edit Transcribed Date: 09/14/2024 12:39 ET Javed Ruiz DO IMG CT PROCEDURES Final Result * Activated partial thromboplastin time (09/14/2024 10:41 AM EDT) aPTT 33.5 24.1 - 39.3 sec LAB COAGULATION METHOD 09/14/2024 11:27 AM EDT [facility] Blood Venous blood specimen / Unknown Venipuncture / Unknown 09/14/2024 10:41 AM EDT 09/14/2024 11:05 AM EDT us Juan Sorto DO LAB BLOOD ORDERABLES Final Result Performing Organization Address [facility]/ZIP Co de Phone Number [facility] [address] [place] [address], [place] [phone] * Prothrombin time with INR (09/14/2024 10:41 AM EDT) Protime 12.2 10.6 - 13.9 sec LAB COAGULATION METHOD 09/14/2024 11:27 AM EDT [facility] INR 1.0 LAB COAGULATION METHOD 09/14/2024 11:27 AM EDT [facility] Blood Venous blood specimen / Unknown Venipuncture / Unknown 09/14/2024 10:41 AM EDT 09/14/2024 11:05 AM EDT us Juan Sorto DO LAB BLOOD ORDERABLES Final Result Performing Organization Address [facility] Co de Phone Number [facility] [address] [place] [address], [place] [phone] * Alanine aminotransferase (09/14/2024 10:41 AM EDT) ALT (SGPT) 49 10 - 60 unit/L LAB CHEMISTRY METHOD 09/14/2024 12:15 PM EDT [facility] Blood Venous blood specimen / Unknown Venipuncture / Unknown 09/14/2024 10:41 AM EDT 09/14/2024 11:05 AM EDT Javed Ruiz DO LAB BLOOD ORDERABLES Final Res ult [facility] [address] [place] [address], [place] [phone] * Aspartate aminotransferase (09/14/2024 10:41 AM EDT) AST (SGOT) 23 10 - 42 unit/L LAB CHEMISTRY METHOD 09/14/2024 12:15 PM EDT [facility] Blood Venous blood specimen / Unknown Venipuncture / Unknown 09/14/2024 10:41 AM EDT 09/14/2024 11:05 AM EDT us Javed Ruiz DO LAB BLOOD ORDERABLES Final Res ult Performing Organization Address [facility] Co de Phone Number [facility] [address] [place] [address], [place] [phone] * (ABNORMAL) Alkaline phosphatase (09/14/2024 10:41 AM EDT) Alkaline Phosphatase 39(L) 42 - 121 unit/L LAB CHEMISTRY METHOD 09/14/2024 12:15 PM EDT [facility] Blood Venous blood specimen / Unknown Venipuncture / Unknown 09/14/2024 10:41 AM EDT 09/14/2024 11:05 AM EDT us Javed Ruiz DO LAB BLOOD ORDERABLES Final Res ult Performing Organization Address [facility]/ZIP Co de Phone Number [facility] [address] [place] [address], [place] [phone] * Magnesium (09/14/2024 10:41 AM EDT) Magnesium 2.0 1.9 - 2.6 mg/dL LAB CHEMISTRY METHOD 09/14/2024 12:45 PM EDT [facility] Blood Venous blood specimen / Unknown Venipuncture / Unknown 09/14/2024 10:41 AM EDT 09/14/2024 11:05 AM EDT us Javed Ruiz DO LAB BLOOD ORDERABLES Final Res ult Performing Organization Address [facility] Co de Phone Number [facility] [address] [place] [address], [place] [phone] * Lipase (09/14/2024 10:41 AM EDT) [facility] Lipase 28 13 - 75 unit/L LAB CHEMISTRY METHOD 09/14/2024 12:15 PM EDT [facility] Blood Venous blood specimen / Unknown Venipuncture / Unknown 09/14/2024 10:41 AM EDT 09/14/2024 11:05 AM EDT us Javed Ruiz DO LAB BLOOD ORDERABLES Final Res ult Performing Organization Address [facility] de Phone Number [facility] [address] [place] [address], [place] [phone] * Bilirubin, total (09/14/2024 10:41 AM EDT) [facility] Total Bilirubin 0.4 0.0 - 1.4 mg/dL LAB CHEMISTRY METHOD 09/14/2024 12:15 PM EDT [facility] Blood Venous blood specimen / Unknown Venipuncture / Unknown 09/14/2024 10:41 AM EDT 09/14/2024 11:05 AM EDT us Javed Ruiz DO LAB BLOOD ORDERABLES Final Res ult Performing Organization Address [facility]/ZIP Co de Phone Number [facility] [address] [place] [address], [place] [phone] * IBD diagnositic assay (09/09/2024 11:35 AM EDT) [facility] IBD SGI Diagnostic See Below 10/08/2024 2:03 PM EDT [facility] Comment: IBD sgi DIAGNOSTIC SEE REPORT UNDER SEPARATE COVER. REPORT WILL BE SENT TO THE ORDERING LABORATORY VIA PRINTER OR FAX. ADDITIONAL COPIES OF THE ORIGINAL REPORT MAY ALSO BE OBTAINED BY CALLING [facility] at [phone]. Blood Venous blood specimen / Unknown Venipuncture / Unknown 09/09/2024 11:35 AM EDT 09/09/2024 11:35 AM EDT Babs MCKEON LAB BLOOD ORDERABLES Edited R esult - Final [facility] [address] [place] [address] * (ABNORMAL) C-reactive protein (09/09/2024 11:35 AM EDT) Pathologist [facility] C-Reactive Protein 0.92(H) <=0.50 mg/dL LAB CHEMISTRY METHOD 09/09/2024 3:18 PM EDT [facility] Blood Venous blood specimen / Unknown Venipuncture / Unknown 09/09/2024 11:35 AM EDT 09/09/2024 11:35 AM EDT Babs MCKEON LAB BLOOD ORDERABLES Final Re sult [facility] [address] [place] [address], * Colonoscopy (10/21/2023) Pathologist [facility] Colonoscopy abstracted, no interpretation Anatomical Region Laterality Modality Other Historical Provider HEALTH MAINTENANCE Final Result * Hemoglobin A1c (03/03/2020) Pathologist [facility] Hemoglobin A1C 6.2 <=6.5 % Blood Venous blood specimen / Unknown Historical Provider LAB BLOOD ORDERABLES Amber l Result from Last 3 Months or Most Recently Relevant to Health Maintenance Insurance [facility] [employer] Advance Directives Documents on File Type Date Recorded Patient Vascular Physician Expl anation Health Care Decision (hx) 01/02/2017 [...] currently active code status orders. Care Teams Track Service Person Relationship Specialty Start Date End Date Daniel Cisneros MD [address] [place], [place] PCP - General Internal Medicine 01/25/18
--- OUTSIDE RECORDS SUMMARY | 2024-12-07 14:47 | XMS_ITS | Encounter Summary ---
Author Organization [facility] Address [address] [place] [address] Care Team Providers Care Molecular Spectroscopist Name Role Phone Daniel Cisneros MD Primary Care Provider [phone] Reason for Visit * Reason Onset Date Comments patient call 11/06/2024 Encounter Details Date Type Department Care Team (Late st Contact Info) Description 11/06/2024 Telephone Gastroenterology - [place] [address] [place] [phone] Babs Temple PA [address] [place] [address] Social History Tobacco Use Types Packs/Day Years [...] PM EDT Sexual Orientation Not on file documented as of this encounter Progress Notes * Yarely Dalton MA - 11/06/2024 4:10 PM EDT Spoke with the patient he did state he has surgery to have these removed in a couple of weeks - I did advise him to call the surgeon who is doing the surgery. * Kanchan Lepemelissa - 11/06/2024 11:52 AM EDT Patient called in and stated that he has three hemorrhoids that are making him feel very uncomfortable and they do not bleed constantly, but on and off. Would like a call back to discuss options and if he could possibly be seen sooner than 12/09 with Sandra documented in this encounter Plan of Treatment Upcoming Encounters Date Type Department Care Team (Late st Contact Info) Description 12/09/2024 10:30 AM EDT Office Visit Gastroenterology - [place] [address] [place] [phone] Babs Temple PA 175 [facility] [address] [place] [address] 12/11/2024 11:45 AM EDT Office Visit [facility] Hematology Oncology [address] [place] [phone] Eleni Abraham MD [address] [place] [address] 01/18/2025 9:15 AM EDT Consult General Surgery - [place] 175 [facility] [address] [place] [phone] Valente Logan MD [address] [place] [phone] documented as of this encounter Visit Diagnoses Not on filedocumented in this encounter Care Teams Molecular Spectroscopist Relationship Specialty Start Date End Date aDniel Cisneros MD [address] [place] [address] [address] [place], [place] PCP - General Internal Medicine 01/25/18 documented as of this encounter
--- OUTSIDE RECORDS SUMMARY | 2024-12-07 14:47 | XMS_ITS | Clinical Summary ---
Author Organization [facility] Address [address] [address] Phone Care Team Providers Care Client Support Representative Name Role Phone Daniel Cisneros MD Primary Care Provider + Allergies Active Allergy Reactions Criticality Noted Date Comments Morphine Rash Low 09/17/2016 Other Reaction(s): shortness of breath and break out in rash Medications hydrOXYzine (ATARAX) 25 MG tablet TAKE 1 TO 2 TABLETS BY MOUTH EVERY NIGHT AT BEDTIME NEEDED FOR SLEEP 02/07/2024 Active OXcarbazepine (TRILEPTAL) 300 MG tablet TAKE 1 TABLET BY MOUTH TWICE A DAY FOR MOOD 02/04/2024 Active sertraline (ZOLOFT) 50 MG tablet Take 75 mg by mouth daily. 02/03/2024 Active traZODone (DESYREL) 100 MG tablet take 1 tablet by mouth everyday at bedtime 02/04/2024 Active ALPRAZolam (XANAX) 0.5 MG tablet Take 0.5 mg by mouth. Active amLODIPine (NORVASC) 10 MG tablet Take 10 mg by mouth daily. Active dicyclomine (BENTYL) 20 mg tablet Take 10 mg by mouth. Active diphenoxylate-a tropine (LOMOTIL) 2.5-0.025 mg per tablet Take 1 tablet by mouth 4 (four) times a day as needed. Active docusate sodium (COLACE) 100 MG capsule Take 100 mg by mouth 2 (two) times a day. Active empagliflozin (JARDIANCE) 10 mg tablet Take 10 mg by mouth. 06/14/2023 Active insulin glargine (LANTUS U-100 INSULIN) 100 unit/mL injection vial Inject under the skin. 06/14/2023 Active lactulose bulk (CONSTULOSE) 10 gram/15 mL solution Take 20 g by mouth. Active lisinopril (PRINIVIL,ZESTR IL) 10 MG tablet Take 10 mg by mouth daily. Active metoprolol tartrate (LOPRESSOR) 50 MG tablet Take 50 mg by mouth daily. Active omeprazole (PRILOSEC) 20 MG capsule Take 20 mg by mouth daily. Active ondansetron (ZOFRAN) 4 MG tablet Take by mouth. Active simvastatin (ZOCOR) 20 MG tablet Take 20 mg by mouth. Active diclofenac sodium (VOLTAREN) 75 MG EC tablet Take 1 tablet (75 mg total) by mouth 2 (two) times a day for 14 days. 28 tablet 03/16/2024 Active Encounters Date Type Department Care Team Description 10/22/2024 Transcribe Orders [facility] Neurology [address] [place] [address] [place] [address] Debbie Jackson MA Aural vertigo, bilateral (Primary Dx); Unspecified visual loss from Last 3 Months Social History Tobacco Use Types Packs/Day Years [...] Sign Reading Time Taken Comments Blood Pressure 154/110 03/16/2024 1:57 PM EST Pulse 89 03/16/2024 1:57 PM EST Temperature 36.6 C (97.9 F) 03/16/2024 1:57 PM EST Respiratory Rate 16 03/16/2024 1:57 PM EST Oxygen Saturation 97% 03/16/2024 1:57 PM EST Inhaled Oxygen Concentration - - Weight - - Height - - Body Mass Index - - Plan of Treatment Health Maintenance Due Date Last Done Comments CREATININE LEVEL 1972 LIPID PANEL 1972 POTASSIUM LEVEL 1972 DEPRESSION SCREENING 1984 SMOKING Hx and SMOKELESS TOBACCO SCREENING 1985 HEPATITIS C SCREENING 1990 HIV ONE-TIME SCREENING (18-65 YEARS) 1990 COLOGUARD 2017 COLONOSCOPY 2017 COLORECTAL CANCER SCREENING 2017 FIT TEST 2017 FOBT 2017 SIGMOIDOSCOPY 2017 VIRTUAL COLONOSCOPY 2017 PNEUMOCOCCAL VACCINES (50+ years) (1 of 1 - PCV) 2022 ZOSTER VACCINES (2 of 2) 01/07/2024 11/12/2023 INFLUENZA VACCINE (#1) 2024 , 01/04/2021, 12/27/2019, Additional history exists COVID-19 VACCINE ( season) 2024 01/25/2021, 01/04/2021 Adult Td,Tdap Booster 07/18/2033 07/19/2023, 015 HEPATITIS A VACCINES Aged Out No long er eligible based on patient's age to complete this topic HIB VACCINES Aged Out No longer eligi ble based on patient's age to complete this topic MENINGOCOCCAL VACCINES (ACWY) Aged Out No longer eligible based on patient's age to complete this topic MENINGOCOCCAL VACCINES (B) Aged Out N o longer eligible based on patient's age to complete this topic Medical Devices Not on file Insurance [facility] NON NSPG PCP [facility] NON NSPG PCP SILVER CLARITY CONNECTORCARE WELLSENSE NON NSPG PCP SILVER CLARITY CONNECTORCARE WELLSENSE NON NSPG PCP SILVER CLARITY CONNECTORCARE WELLSENSE NON NSPG PCP SILVER CLARITY CONNECTORCARE WELLSENSE NON NSPG PCP SILVER CLARITY CONNECTORCARE Care Teams Client Support Representative Relationship Specialty Start Date End Date Daniel Cisneros MD [address] [place] [phone] PCP - General Internal Medicine 03/16/24 Additional Source Comments The information contained in this document represents components of the legal health record. It is not the complete legal health record.[facility]
--- OUTSIDE RECORDS SUMMARY | 2024-12-07 14:47 | XMS_ITS | Clinical Summary ---
Author Organization [facility] Address [address] [place] [address] Phone Care Team Providers Care Security Assessor Name Role Phone Daniel Cisneros MD Primary Care Provider [phone] Allergies Active Allergy Reactions Criticality Noted Date [...] to 49 Years) Discontinued 07/01/2019 Care Teams Security Assessor Relationship Specialty Start Date End Date Daniel Cisneros MD [facility] [address] [place] [address] [address] [place], [place] PCP - General 04/11/20
== END 2024-12-07 13:16 | disposition home or self-care (01) ==
LOC: HO.HGS 12:34
PROVIDERS: PCP Internal Medicine; Visit Provider Surgery
DX: K64.2 Third degree hemorrhoids (principal)
CPT/HCPCS: 99024

== ENCOUNTER → 2024-12-07 12:34 | Outpatient (BNVA) | payer OTHER, SELFPAY | PROVIDERS: PCP Internal Medicine; Visit Provider Surgery | DX: K64.2 Third degree hemorrhoids (principal) | CPT/HCPCS: 99212 ==

== ENCOUNTER 2024-12-22 10:58 | Outpatient (AMB) | payer OTHER, SELFPAY ==
--- OUTSIDE RECORDS SUMMARY | 2024-03-16 15:10 | XMS_ITS | Encounter Summary ---
Author Organization [facility] Address [address] [facility] [address] [place] [phone] Phone Care Team Providers Care Director Of Materials Name Role Phone Daniel Cisneros MD Primary Care Provider + Encounter Details Date Type Department Care Team (Late st Contact Info) Description 03/16/2024 2:10 PM EST Hospital Encounter [facility] [address] [place] [phone] Gloria Patricio, INVENTORY SPECIALIST MANAGER [address] [place] [address] [email or web address] Social History Tobacco Use Types Packs/Day Years [...] originally createdby Malik Salazar MD. Gloria Patricio INVENTORY SPECIALIST MANAGER IMG XR UPPER EXTREMITY Final Result documented in this encounter Visit Diagnoses Not on filedocumented in this encounter Care Teams Director Of Materials Relationship Specialty Start Date End Date Daniel Cisneros MD [address] [facility] [address] [place] [phone] PCP - General Internal Medicine 03/16/24 documented as of this encounter Additional Source Comments The information contained in this document represents components of the legal health record. It is not the complete legal health record.[facility]
--- NOTE | 2024-12-22 11:04 | MHC.OFFVIS ---
Vital Signs 12/22/24 11:11 Height 5 ft 6 in Weight 224 lb 13.944 oz BMI 36.3 BP 160/90 H Blood Pressure Location Lt brachial Position Sitting Intake Visit Reasons: 2 weeks post hemorrhoidectomy Intake Note: Patient is seen in office for 2 weeks follow up visit, post hermorrhoidectomy. Pt c/o: admits to pain in the incision site for the past 5 days, did not get the cream that was mention on last visit Aircraft De Icer Installer Required: No Accompanied by: Self / Same As Patient Allergies morphine (MORPHINE) Allergy (Unknown, Verified 12/22/24 11:11) HIVES, rash pravastatin Allergy (Verified 12/22/24 11:11) Unknown Medication List - Last Reconciled 12/24/24 by Ricco Echevarria MD amlodipine 10 mg PO DAILY aspirin (Adult Low Dose Aspirin) 81 mg PO DAILY atorvastatin 20 mg PO BEDTIME benazepril 20 mg PO DAILY budesonide DR-ER 9 mg PO QAM carvedilol 25 mg PO BID dicyclomine 20 mg PO QID PRN empagliflozin (Jardiance) 10 mg PO DAILY gabapentin 300 mg PO BID hydrocortisone-pramoxine 2.5-1 % 1 appl ME BID PRN hydromorphone (Dilaudid) 2 mg PO Q6H PRN hydroxyzine HCl 25 - 50 mg PO BEDTIME PRN ibuprofen 600 mg PO Q8H PRN insulin glargine (Lantus Solostar U-100 Insulin) 12 units subcut BEDTIME PRN lidocaine 4% 1 appl topical TID PRN omeprazole 1 cap PO BID oxcarbazepine 300 mg PO BID sertraline 50 mg PO DAILY sitagliptin phos-metformin 50-1,000 mg (Janumet) 1 tab PO BID trazodone 50 - 100 mg PO BEDTIME PRN HPI Comments Details: Patient returns following hemorrhoidectomy approximately 2 weeks ago. Overall he feels improved as far as the hemorrhoids are concern with no further pain or bleeding. His bowels are occurring daily without significant straining. He does report increased abdominal pain mainly in the upper abdomen which is causing him more problems than the hemorrhoids. The pain is affecting his appetite but he denies any nausea or vomiting. He denies fever or chills. [facility] Medical History Acute Crohn's disease Bleeding hemorrhoid Chronic renal insufficiency HTN (hypertension) Leukocytosis Depression IBS (irritable bowel syndrome) SOB (shortness of breath) Pericardial effusion Vertigo Blurry vision Obesity Elevated blood pressure reading Hypertension, uncontrolled Renal insufficiency Sleep apnea Diabetes Lower GI bleed Diverticulosis Hematochezia Right ankle pain History of diverticulitis Mitral valve disease Anxiety GERD (gastroesophageal reflux disease) Constipation Hyperlipidemia Hypertension Surgical History Hx of hemorrhoidectomy (11/23/24) History of ankle surgery S/P mitral valve repair (~2018) History of colostomy reversal History of esophagogastroduodenoscopy (EGD) History of colonoscopy Status post Ammy procedure (10/21/19) Family History Mother Diabetes mellitus Father Diabetes mellitus Social History Household Members: Significant Other Housing: Apartment Are you a primary customer care representative to a significant other at home: No Do you presently have visiting nurse or other home services: No Unable to assess alcohol history related to: Unable to respond Alcohol intake: current Alcohol intake frequency: holidays/special occasions only Alcohol type: beer and hard liquor Comment: PT SLEEPING Patient Tobacco Use Status: Never used Tobacco Second Hand Smoke Exposure: No Substance Use Type: Marijuana Advance Directives Date on File: 02/22/20 service: No Current occupational status: unemployed Physical Exam Vital Signs: Last Vital Signs BP 160/90 H 12/22/24 11:11 BMI result Body Mass Index 36.3 Const General: no acute distress Nutritional Appearance: well nourished Orientation/consciousness: patient oriented x3 Resp Effort & Inspection: normal respiratory effort GI Other: Abdomen distended with tenderness to palpation especially in the upper quadrants. Bowel sounds are normoactive. No rebound, guarding or rigidity. Skin Other: Warm, dry, no rash Neuro General: patient oriented x3 Extrem Other: No edema Assessment & Plan Assessment & Plan (1) Abdominal pain, diffuse: Code(s): R10.84 - Generalized abdominal pain Category: Medical (2) Crohn's disease: Code(s): K50.90 - Crohn's disease, unspecified, without complications Category: Medical Plan Patient with improved symptoms for following hemorrhoidectomy however now has abdominal pain. He is concerned that this may be related to his Crohn's disease acting up. On examination he does have tenderness but normal bowel sounds. I recommended further workup with a CT abdomen and pelvis. He will return following the CT to review the results. Orders: Orders CT abdomen pelvis w IV con 12/22/24 K50.90 - Crohn's disease, unspecified, without complications, R10.84 - Generalized abdominal pain Coding Level of Care Code Est Pt Level 3 (38432) Diagnoses Abdominal pain, diffuse R10.84 Crohn's disease K50.90
[2024-12-22 11:11] VITALS: BP 160/90; BMI 36.3
--- OUTSIDE RECORDS SUMMARY | 2024-12-22 13:37 | XMS_ITS | Encounter Summary ---
Author Organization [facility] Address [address] [place] [address] Care Team Providers Care Procurement Inspector Name Role Phone Daniel Cisneros MD Primary Care Provider [phone] Reason for Visit * Reason Onset Date Comments Provider Call Back 12/14/2024 Encounter Details Date Type Department Care Team (Late st Contact Info) Description 12/14/2024 Telephone Gastroenterology - [place] [address] [place] [phone] Babs Temple PA [address] [place] [address] Social History Tobacco Use Types Packs/Day Years [...] Progress Notes * Yarely Dalton MA - 12/15/2024 8:56 AM EDT Pt is made aware * LINDA Saab - 12/14/2024 3:44 PM EDT I will order plain KUB x-rays. Patient can do it at [facility] at his earliest convenience. No appointment needed. TY * Ana Destinee - 12/14/2024 8:37 AM EDT Patient called and said he has pain in the square middle of his stomach and he said he thought it was constipation but he went to the bathroom and he still has the pain. Please contact and advise. documented in this encounter Plan of Treatment Upcoming Encounters Date Type Department Care Team (Late st Contact Info) Description 01/18/2025 9:15 AM EDT Consult General Surgery - [address] [place] [phone] Valente Logan MD [address] [place] [phone] Scheduled Orders Name Type Priority Associated Diagnoses Orde r Schedule XR Abdomen 1 View Imaging Routine Crohn's disease of large intestine without complication ([facility] V24, [facility] V28) Expected: 12/14/2024, Expires: 12/14/2025 documented as of this encounter Visit Diagnoses Diagnosis Crohn's disease of large intestine without complication (CMS/HCC V24, CMS/[facility] V28)- Primary documented in this encounter Care Teams Procurement Inspector Relationship Specialty Start Date End Date Daniel Cisneros MD [address] [facility] [address] [place], [place] PCP - General Internal Medicine 01/25/18 documented as of this encounter
--- OUTSIDE RECORDS SUMMARY | 2024-12-22 13:37 | XMS_ITS | Clinical Summary ---
Author Organization [facility] Address [address] [address] Phone Care Team Providers Care Pad Machine Operator Name Role Phone Daniel Cisneros MD Primary [...] Department Care Team Description 10/22/2024 Transcribe Orders [facility] Neurology [address] [place] [address] [place] [address] Debbie Jackson [place] Aural vertigo, bilateral (Primary [...] file Insurance [facility] NON NSPG PCP [facility] NON NSPG PCP SILVER CLARITY CONNECTORCARE WELLSENSE NON NSPG PCP SILVER CLARITY CONNECTORCARE WELLSENSE NON NSPG PCP SILVER CLARITY CONNECTORCARE WELLSENSE NON NSPG PCP SILVER CLARITY CONNECTORCARE WELLSENSE NON NSPG PCP SILVER CLARITY CONNECTORCARE Care Teams Pad Machine Operator Relationship Specialty Start Date End Date Daniel Cisneros MD [address] [place] [phone] PCP - General Internal Medicine 03/16/24 Additional Source Comments The information contained in this document represents components of the legal health record. It is not the complete legal health record.[facility]
--- OUTSIDE RECORDS SUMMARY | 2024-12-22 13:37 | XMS_ITS | Clinical Summary ---
Author Organization 175 [facility] Address [address] [place] [address] Phone Care Team Providers Care Powder Operator Name Role Phone Daniel Cisneros MD Primary Care Provider [phone] Allergies Active Allergy Reactions Criticality Noted Date [...] OR CHEW 180 capsule 3 5 Active aspirin 81 mg EC [...] in the morning. 270 each 1 5 026 Active dicyclomine (BENTYL) 20 mg tablet TAKE 1 TABLET (20 MG TOTAL) BY MOUTH 4 (FOUR) TIMES A DAY IF NEEDED (ABD PAIN). 360 tablet 1 5 Active dicyclomine (BENTYL) 20 mg tablet Take 1 tablet (20 mg total) by mouth 4 (four) times a day if needed (abd pain). 120 tablet 3 5 025 Discontinued Active Problems Problem Noted Date Diagnosed Date [...] no stenosis noted on echo 05/2023 at [facility] Atypical chest pain 04/27/2020 Overview (09/14/2024): [...] Encounters Date Type Department Care Team Description 12/14/2024 Telephone Gastroenterology [facility] [address] [phone] Babs Temple PA 12/09/2024 10:30 AM EDT Office Visit Gastroenterology [facility] [address] [phone] Babs Temple PA Crohn's disease of large intestine without complication (CMS/HCC V24, CMS/HCC V28) (Primary Dx); Gastroesophageal reflux disease with esophagitis without hemorrhage 11/16/2024 11:00 AM EDT Office Visit [facility] Hematology Oncology [address] [place] [address] Eleni Abraham MD Other elevated white blood cell count 11/11/2024 9:03 AM EDT - 11/11/2024 11:59 PM EDT Hospital Encounter [facility] CT Scan [address] [place] [address] Lower abdominal pain; Colitis; Diarrhea, unspecified type Discharge Disposition: Home or Self Care 11/06/2024 Telephone Gastroenterology [address] [phone] Babs Temple PA 10/16/2024 Telephone [facility] Cardiology [facility] [address] [phone] Claire Kaur NP 10/13/2024 9:10 AM EDT Consult [facility] Cardiology [facility] [address] [phone] Vincent, Claire, CAFE ATTENDANT Hypertension, unspecified type (Primary Dx); Atypical chest pain; SOB (shortness of breath); Mixed hyperlipidemia; Preop examination 10/11/2024 Telephone Gastroenterology - [place] [address] [place] [address] Babs Temple PA 09/21/2024 Telephone [facility] Cardiology [facility] [address] [place] [address] Daniel Cisneros MD 09/21/2024 Telephone [facility] Cardiology [facility] [address] [place] [address] Claire Kaur NP from Last 3 Months [...] Sign Reading Time Taken Comments Blood Pressure 130/76 12/09/2024 10:13 AM EDT Pulse 58 12/09/2024 10:13 AM EDT Temperature 37 C (98.6 F) 11/16/2024 10:53 AM EDT Respiratory Rate 18 09/15/2024 11:38 AM EDT Oxygen Saturation 97% 12/09/2024 10:13 AM EDT Inhaled Oxygen Concentration - - Weight 103 kg (228 lb) 12/09/2024 10:13 AM EDT Height 167.6 cm (5' 6 ) 12/09/2024 10:13 AM EDT Body Mass Index 36.8 12/09/2024 10:13 AM EDT Plan of Treatment Upcoming Encounters Date Type Department Care Team (Late st Contact Info) Description 01/18/2025 9:15 AM EDT Consult General Surgery - [address] [place] [address] Valente Logan MD [address] [place] [phone] Health Maintenance Due Date Last Done Comments [...] Depression Screening 04/01/2024 Influenza Vaccine (#1) 2024 , 01/04/2021, 12/27/2019, Additional history exists Diabetes: Annual GFR (Glomerular Filtration Rate) 09/15/2025 09/15/2024, 09/14/2024, 03/03/2020 Hypertension/CHF/CAD Annual BMP Blood Test 09/15/2025 09/15/2024, 09/14/2024, 03/03/2020 Cholesterol Screening (Lipid Panel) 09/15/2029 09/15/2024 DTaP,Tdap,and Td Vaccines (3 - Td or Tdap) 07/18/2033 07/19/2023, 06/11/2014 Colorectal Cancer Screening: Colonoscopy 10/20/2033 10/21/2023 RSV Immunization Adult Patients (1 - 1-dose 75+ series) 09/29/2047 HIB Vaccines Aged Out No longer eligi [...] 10/14/2024 7:28 AM EDT Hypertension, unspecified type BASIC METABOLIC PANEL Routine 09/15/2024 5:21 AM EDT LIPID PANEL WITH REFLEX TO DIRECT LDL Add-On 09/15/2024 5:21 AM EDT HM COLONOSCOPY Routine 10/21/2023 HEMOGLOBIN A1C Routine 03/03/2020 from Last 3 Months or Most Recently Relevant to Health Maintenance Results * BCR ABL FISH CYTOGENETICS (11/16/2024 11:35 AM EDT) Scan Result See Scanned Result 11/23/2024 7:28 AM EDT [facility] Blood Venous blood specimen / Unknown Venipuncture / Unknown 11/16/2024 11:35 AM EDT 11/16/2024 12:24 PM EDT us Eleni Abraham MD LAB CYTOGENETICS ORDERABLES Final Result [facility] * (ABNORMAL) CBC auto differential (11/16/2024 11:35 AM EDT) [facility] WBC 12.3(H) 4.8 - 10.8 K/mcL LAB HEMETOLOGY METHOD 11/16/2024 1:[address] [facility] RBC 5.30 4.50 - 5.50 M/mcL LAB HEMETOLOGY METHOD 11/16/2024 1:[address] [facility] Hemoglobin 15.2 13.5 - 17.5 g/dL LAB HEMETOLOGY METHOD 11/16[facility]24 [facility] Hematocrit 47.1 42.0 - 54.0 % LAB HEMETOLOGY METHOD 11/16/2024 1:[address] [facility] MCV 89.4 79.0 - 98.0 FL LAB HEMETOLOGY METHOD 11/16/2024 1:[address] [facility] MCH 28.8 27.0 - 32.0 pcg LAB HEMETOLOGY METHOD 11/16/2024 1:[address] [facility] MCHC 32.3 32.0 - 37.0 g/dL LAB HEMETOLOGY METHOD 11/16/2024 1:[address] [facility] RDW 14.5 11.0 - 15.0 [...] 1:[address] [facility] Eosinophils Absolute 0.11 0.00 - 0.50 K/mcL LAB HEMETOLOGY METHOD 11/16/2024 1:[address] [facility] Basophils Absolute 0.05 0.00 - 0.20 K/mcL LAB HEMETOLOGY METHOD 11/16/2024 1:[address] [facility] Immature Granulocytes Absolute 0.16(H) 0.00 - 0.03 K/mcL LAB HEMETOLOGY METHOD 11/16/2024 1:[address] [facility] Blood Venous blood specimen / Unknown Venipuncture / Unknown 11/16/2024 11:35 AM EDT 11/16/2024 12:24 PM EDT Eleni Abraham MD LAB BLOOD ORDERABLES Final R esult Performing Organization Address City/[facility]/ZIP Co de Phone Number [facility] [address] [place] [address], [place] [phone] * (ABNORMAL) Sedimentation rate (11/16/2024 11:35 AM EDT) Sed Rate 25(H) 0 - 20 mm/hr LAB HEMETOLOGY METHOD 11/16/2024 1:55 PM EDT [facility] Blood Venous blood specimen / Unknown Venipuncture / Unknown 11/16/2024 11:35 AM EDT 11/16/2024 12:24 PM EDT Eleni Abraham MD LAB BLOOD ORDERABLES Final R esult Performing Organization Address City/[facility]/ZIP Co de Phone Number [facility] [address] [place] [address], [place] [phone] * (ABNORMAL) Reticulocyte count (11/16/2024 11:35 AM EDT) Retic Ct Abs 0.110(H) 0.030 - 0.090 M/mcL LAB HEMETOLOGY METHOD 11/16/2024 1:21 PM EDT [facility] Retic Ct Pct 2.0(H) 0.7 - 1.7 % LAB HEMETOLOGY METHOD 11/16/2024 1:21 PM EDT [facility] Immature Retic Fract 29.9(H) 2.3 - 15.9 % LAB HEMETOLOGY METHOD 11/16/2024 1:21 PM EDT [facility] Reticulocyte Hemoglobin 29.9 >29.0 pcg LAB HEMETOLOGY METHOD 11/16/2024 1:21 PM EDT [facility] Blood Venous blood specimen / Unknown Venipuncture / Unknown 11/16/2024 11:35 AM EDT 11/16/2024 12:24 PM EDT Eleni Abraham MD LAB BLOOD ORDERABLES Final R esult Performing Organization Address City/[facility]/ZIP Co de Phone Number [facility] [address] [place] [address], [place] [phone] * Lactate dehydrogenase (11/16/2024 11:35 AM EDT) LDH 170 120 - 246 unit/L LAB CHEMISTRY METHOD 11/16/2024 2:05 PM EDT [facility] Blood Venous blood specimen / Unknown Venipuncture / Unknown 11/16/2024 11:35 AM EDT 11/16/2024 12:22 PM EDT Eleni Abraham MD LAB BLOOD ORDERABLES Final R esult Performing Organization Address [facility] Co de Phone Number [facility] [address] [place] [address], [place] [phone] * CT Abdomen Pelvis w Contrast (11/11/2024 9:31 AM EDT) Anatomical Region Laterality Modality Body Computed Tomogra phy 11/11/2024 10:0 0 AM EDT Impressions 11/11/2024 10:05 AM EDT Impression: 1. Submucosal fat deposition within the terminal ileum and proximal colon, compatible with chronic inflammation. 2. Interim sigmoid colectomy sequela. Televivien MCKEON ([id number]) -------- FINAL REPORT -------- Dictated By: Lucia Corado Dictated Date: 11/11/2024 10:00 ET Assigned Physician: Lucia Corado Reviewed and Electronically Signed By: Lucia Corado Signed Date: 11/11/2024 10:05 ET Workstation ID: [id number] Transcribed By: Self Edit Transcribed Date: 11/11/2024 10:00 ET Narrative 11/11/2024 10:05 AM EDT History: Lower abdominal pain, diarrhea, rectal bleeding. Recent colonoscopy revealed active chronic colitis. Comparison: 05/08/18 Technique: Helical volumetric imaging of the abdomen and pelvis was performed without oral contrast and during the uneventful intravenous administration of 90 cc Isovue-370. DLP: 1189.55 mGy/cm GE SkillPixelspeed VCT Iterative reconstruction technique Findings: The liver [...] of 90 cc Isovue-370. DLP: 1189.55 mGy/cm GE SkillPixelspeed VCT Iterative reconstruction technique Findings: The liver [...] 2. Interim sigmoid colectomy sequela. Lauri MCKEON ([id number]) -------- FINAL REPORT -------- Dictated By: Lucia Corado Dictated Date: 11/11/2024 10:00 ET Assigned Physician: Lucia Corado Reviewed and Electronically Signed By: Lucia Corado Signed Date: 11/11/2024 10:05 ET Workstation ID: [id number] Transcribed By: Self Edit Transcribed Date: 11/11/2024 10:00 ET Babs MCKEON IMG CT PROCEDURES Final Resul t * ECG 12 lead (10/14/2024 7:28 AM EDT) Ventricular Rate ECG 68 BPM GEMUSE Atrial Rate 68 BPM GEMUSE P-R Interval 160 ms GEMUSE QRS Duration 106 ms GEMUSE Q-T Interval 426 ms GEMUSE QTc 452 ms GEMUSE P Wave [place] 0 degrees GEMUSE R [place] 62 degrees GEMUSE T [place] 69 degrees GEMUSE ECG Interpretation Normal sinus rhythm Nonspecific ST abnormality Otherwise normal ECG When compared with ECG of 14-SEP-2024 12:03, No significant changes are noted Confirmed by Sj LOTT JOHN ([id number]) on 10/15/2024 4:32:43 PM GEMUSE 10/13/2024 9:18 AM EDT 10/15/2024 4:32 PM EDT Claire Kaur NP ECG ORDERABLES Edited Result - Final GEMUSE * (ABNORMAL) Lipid panel with reflex to direct LDL (09/15/2024 5:21 AM EDT) Cholesterol 185 0 - 200 mg/dL LAB CHEMISTRY METHOD 09/15/2024 2:18 PM EDT [facility] Triglycerides 312(H) 0 - 150 mg/dL LAB CHEMISTRY METHOD 09/15/2024 2:18 PM EDT [facility] HDL 31(L) >=40 mg/dL LAB CHEMISTRY METHOD 09/15/2024 2:18 PM EDT [facility] LDL Calculated 92 0 - 100 mg/dL LAB CHEMISTRY METHOD 09/15/2024 2:18 PM EDT [facility] VLDL Cholesterol Carlos 62.4 mg/dL LAB CHEMISTRY METHOD 09/15/2024 2:18 PM EDT [facility] Non HDL Chol. (LDL+VLDL) 154(H) <145 mg/dL LAB CHEMISTRY METHOD 09/15/2024 2:18 PM EDT [facility] Chol/HDL Ratio 6.0(H) 0.0 - 4.4 LAB CHEMISTRY METHOD 09/15/2024 2:18 PM T [facility] Blood Venous blood specimen / Unknown Venipuncture / Unknown 09/15/2024 5:21 AM EDT 09/15/2024 6:24 AM EDT us Jaime Shaw MD LAB BLOOD ORDERABLES F inal Result [facility] [address] [place] [address], * (ABNORMAL) Basic metabolic panel (09/15/2024 5:21 AM EDT) Sodium 137 133 - 145 mmol/L LAB [...] 73m2 LAB CHEMISTRY METHOD 09/15/2024 7:[address] [facility] Comment:Calculation based on the Chronic Kidney Disease Epidemiology Collaboration (CKD-EPI) equation refit without adjustment for race. BUN/Creatinine Ratio 11.3 LAB CHEMISTRY METHOD 09/15/2024 7:[address] [facility] Calcium 8.9 8.5 - 10.5 mg/dL LAB CHEMISTRY METHOD 09/15/2024 7:08 AM EDT [facility] Blood Venous blood specimen / Unknown Venipuncture / Unknown 09/15/2024 5:21 AM EDT 09/15/2024 6:24 AM EDT Lindsay White MD LAB BLOOD ORDERABLES Final Res ult [facility] [address] [place] [address], * Colonoscopy (10/21/2023) Colonoscopy abstracted, no interpretation Anatomical Region Laterality Modality Other Historical Provider HEALTH MAINTENANCE Final Result * Hemoglobin A1c (03/03/2020) Hemoglobin A1C 6.2 <=6.5 % Blood Venous blood specimen / Unknown Historical Provider LAB BLOOD ORDERABLES Amber l Result from Last 3 Months or Most Recently Relevant to Health Maintenance Insurance [facility] [facility] Advance Directives Documents on File Type Date Recorded Patient Lead Systems Architect Expl anation Health Care Decision (hx) 01/02/2017 AD BEDOLLA DIRECTIVE Health Care Decision (hx) 01/02/2017 AD BEDOLLA DIRECTIVE Health Care Decision (hx) 01/02/2017 AD BEDOLLA DIRECTIVE Health Care Decision (hx) 01/02/2017 AD CHIOMA DIRECTIVE * Full Code - Default (Latest [...] currently active code status orders. Care Teams Powder Operator Relationship Specialty Start Date End Date Daniel Cisneros MD [address] [place] [address] [address] [place], [place] PCP - General Internal Medicine 01/25/18
--- OUTSIDE RECORDS SUMMARY | 2024-12-22 13:37 | XMS_ITS | Clinical Summary ---
Author Organization [facility] Address [address] [place] [address] Care Team Providers Care Willow Analyst Name Role Phone Daniel Cisneros MD Primary Care Provider [phone] Allergies Active Allergy Reactions Criticality Noted Date [...] age to complete this topic Care Teams Willow Analyst Relationship Specialty Start Date End Date Daniel Cisneros MD [address] [facility] [address] [place] [address] PCP - General Geriatric Medicine 09/08/16
--- OUTSIDE RECORDS SUMMARY | 2024-12-22 13:37 | XMS_ITS | Clinical Summary ---
Author Organization [facility] Address [address] [place] [address] Phone Care Team Providers Care Vice President Of Human Resources Name Role Phone Daniel Cisneros MD Primary Care Provider [phone] Allergies Active Allergy Reactions Criticality Noted Date [...] to 49 Years) Discontinued 07/01/2019 Care Teams Vice President Of Human Resources Relationship Specialty Start Date End Date Daniel Cisneros MD [facility] [address] [place] [address] [address] [place], [place] PCP - General 04/11/20
== END 2024-12-22 11:19 | disposition home or self-care (01) ==
LOC: HO.HGS 10:59
PROVIDERS: PCP Internal Medicine; Visit Provider Surgery
DX: R10.84 Generalized abdominal pain (principal); K50.90 Crohn's disease, unspecified, without complications
CPT/HCPCS: 99024

== ENCOUNTER → 2024-12-22 10:58 | Outpatient (BNVA) | payer OTHER, SELFPAY | PROVIDERS: PCP Internal Medicine; Visit Provider Surgery | DX: R10.84 Generalized abdominal pain (principal); K50.90 Crohn's disease, unspecified, without complications | CPT/HCPCS: 99212 ==

== ENCOUNTER 2025-03-20 02:58 | Emergency (ER) | payer SELFPAY ==
--- OUTSIDE RECORDS SUMMARY | 2024-03-16 14:10 | XMS_ITS | Encounter Summary ---
Author Organization [facility] Address [address] [facility] [address] [place] [phone] Phone Care Team Providers Care Cottage Master Name Role Phone Daniel Cisneros MD Primary Care Provider + Encounter Details Date Type Department Care Team (Late st Contact Info) Description 03/16/2024 2:10 PM EST Hospital Encounter [facility] [address] [place] [phone] Gloria Patricio, AVIONICS REPAIR TECHNICIAN [address] [place] [address] [email or web address] Social History Tobacco Use Types Packs/Day Years Used Date Smoking Tobacco: Never Assessed Education Answer Date Recorded Are you interested in more education? Not on elmer e 03/16/2024 Are you concerned about learning? Not on file 03/16/2024 No 03/16/2024 No 03/16/2024 Digital Access Answer Date Recorded No 03/16/2024 No 03/16/2024 Reliable internet access at home? Not on file 03/16/2024 Device with a working camera? Not on file Sex and Gender Information Value Date Recorded Sex Assigned at Not on file Legal Sex Male 1:21 PM EST Gender Identity Not on file Sexual Orientation Not on file documented as of this encounter Plan of Treatment Not on file documented as of this encounter Procedures Procedure Name Priority Date/Time Associated Diagnosis Comments XR SHOULDER 2 VIEWS (LEFT) Urgent/patient waiting 03/16/2024 3:01 PM EST Acute pain of left shoulder documented in this encounter Results * XR SHOULDER 2 VIEWS (LEFT) (03/16/2024 3:01 PM EST) Anatomical Region Laterality Modality Shoulder Left Computed Radiogr aphy 03/16/2024 3:19 PM EST Impressions 03/16/2024 3:39 PM EST 1. No acute fracture or dislocation. 2. Chronic appearing deformity of the left scapula. Correlate with history of prior injury. ATTESTATION: Serg Leyva as teaching physician, have reviewed the images for this case and if necessary edited the report originally created by Malik Salazar MD. Narrative 03/16/2024 3:39 PM EST XR SHOULDER 2 OR MORE VIEWS (LEFT) Referring clinician's provided indication for this examination in Epic: Pain COMPARISON: None FINDINGS: No fracture. Chronic appearing deformity of the left scapula with well- corticated ossific density inferior to the glenoid and benign-appearing scapular body lucencies. Normal glenohumeral alignment and joint space. Normal acromioclavicular joint. Partially visualized median sternotomy closure wires. Procedure Note Abdirahman Long MD, MPH - 03/16/2024 XR SHOULDER 2 OR MORE VIEWS (LEFT) Referring clinician's provided indication for this examination in Epic:Pain COMPARISON: None FINDINGS: No fracture. Chronic appearing deformity of the left scapula withwell-corticated ossific density inferior to the glenoid andbenign-appearing scapular body lucencies. Normal glenohumeral alignmentand joint space. Normal acromioclavicular joint. Partially visualized median sternotomy closure wires. IMPRESSION: 1. No acute fracture or dislocation. 2. Chronic appearing deformity of the left scapula. Correlate withhistory of prior injury. ATTESTATION: Serg Leyva as teaching physician, have reviewed theimages for this case and if necessary edited the report originally createdby Malik Salazar MD. Gloria Patricio AVIONICS REPAIR TECHNICIAN IMG XR UPPER EXTREMITY Final Result documented in this encounter Visit Diagnoses Not on filedocumented in this encounter Care Teams Cottage Master Relationship Specialty Start Date End Date Daniel Cisneros MD [address] [facility] [address] [place] [id number] PCP - General Internal Medicine 03/16/24 documented as of this encounter Additional Source Comments The information contained in this document represents components of the legal health record. It is not the complete legal health record.[facility]
--- NOTE | ~2025-03-20 | XR_ITS ---
CLINICAL HISTORY: coughing after vomiting in sleep 2 view chest x-ray. Comparison: 08/07/2023 Findings: The lungs are adequately expanded. No focal consolidation. No effusion or pneumothorax. Cardiac and mediastinal contours are within normal limits. No acute osseous abnormality. Impression: No acute process. This document has been electronically signed by: Alok Cheatham MD on 03/20/2025 09:47:24
[2025-03-20 03:10] VITALS: BP 148/91; PULSE 80; RESP 18; TEMP 36.6; O2SAT 96; BMI 36.0
[2025-03-20 03:35] LABS: MANUAL DIFF FLAG NO
[2025-03-20 03:36] LABS: Glucose, Whole Blood 150 mg/dL (60-115)
[2025-03-20 03:53] VITALS: BP 147/100; PULSE 78; RESP 18; TEMP 36.7; O2SAT 97
[2025-03-20 03:53] LABS: IDNOW Serial# 58CA691E; Influenza B2 Negative (Negative)
[2025-03-20 03:54] LABS: COVID-19 Test Negative (Negative); IDNOW Serial# 58CA691E
--- OUTSIDE RECORDS SUMMARY | 2025-03-20 03:57 | XMS_ITS | Clinical Summary ---
Author Organization [facility] Address [address] [place] [address] Phone Care Team Providers Care Medical Interpreter Name Role Phone Daniel Cisneros MD Primary Care Provider [phone] Allergies Active Allergy Reactions Criticality Noted Date [...] to 49 Years) Discontinued 07/01/2019 Care Teams Medical Interpreter Relationship Specialty Start Date End Date Daniel Cisneros MD [facility] [address] [place] [address] [address] [place], [place] PCP - General 04/11/20
--- OUTSIDE RECORDS SUMMARY | 2025-03-20 03:57 | XMS_ITS | Clinical Summary ---
Author Organization 175 [facility] Address [address] [place] [address] Phone Care Team Providers Care Erection Shop Supervisor Name Role Phone Daniel Cisneros MD Primary Care Provider [phone] Allergies Active Allergy Reactions Criticality Noted Date Comments Morphine Sulfate Hives 05/15/2010 Pravastatin Sodium 05/29/2010 CPK elevation Medications hydrOXYzine HCL (ATARAX) 25 mg tablet Take 1 tablet (25 mg total) by mouth 2 (two) times a day if needed for anxiety. 09/03/2023 Active empagliflozin (JARDIANCE) 10 mg tablet Take 1 tablet (10 mg total) by mouth 1 (one) time each day. Active traZODone (DESYREL) 100 mg tablet Take 1 tablet (100 mg total) by mouth at bedtime. 06/04/2023 Active OXcarbazepine (TRILEPTAL) 300 mg tablet Take 1 tablet (300 mg total) by mouth 2 (two) times a day. Active carvediloL (COREG) 12.5 mg tablet Take 1 tablet (12.5 mg total) by mouth 2 (two) times a day with meals. 07/03/2023 Active SITagliptin-met FORMIN (Janumet) 50-1,000 mg per tablet Take 1 tablet by mouth 2 (two) times a day. 02/21/2022 Active atorvastatin (LIPITOR) 20 mg tablet Take 1 tablet (20 mg total) by mouth at bedtime. Active gabapentin (NEURONTIN) 300 mg capsule Take 1 capsule (300 mg total) by mouth 3 (three) times a day. Active sertraline (ZOLOFT) 100 mg tablet Take 1 tablet (100 mg total) by mouth 2 (two) times a day. 06/06/2017 Active amLODIPine (NORVASC) 10 mg tablet Take 1 tablet (10 mg total) by mouth 1 (one) time each day. Active aspirin 81 mg EC tablet Take 1 tablet (81 mg total) by mouth at bedtime. Active doxepin (SINEquan) 10 mg capsule Take 1 capsule (10 mg total) by mouth at bedtime. Active budesonide DR (ENTOCORT EC) 3 mg 24 hr capsule Take 3 capsules (9 mg total) by mouth 1 (one) time each day in the morning. 270 each 1 10/08/2024 10/09/19 26 Active dicyclomine (BENTYL) 20 mg tablet TAKE 1 TABLET (20 MG TOTAL) BY MOUTH 4 (FOUR) TIMES A DAY IF NEEDED (ABD PAIN). 360 tablet 1 12/14/2024 Active omeprazole (PriLOSEC) [address] capsule TAKE 1 CAPSULE (20MG TOTAL) BY MOUTH TWICE A DAY BEFORE MEALS DO NOT CRUSH OR CHEW 180 capsule 3 01/27/2025 Active Active Problems Problem Noted Date Diagnosed [...] no stenosis noted on echo 05/2023 at [facility] Atypical chest pain 04/27/2020 Overview (09/14/2024): -Exercise [...] Encounters Date Type Department Care Team Description 01/15/2025 9:15 AM EDT [facility] [address] [place] [address] Valente Logan MD Localized swelling, mass and lump, multiple sites (Primary Dx) 12/23/2024 Telephone [facility] [address] [place] [address] Enoch Rene MD from Last 3 Months Surgical History Surgery [...] Safety Answer Date Record ed Physical Abuse Unrecognized value 09/14/2024 Verbal Abuse Unrecognized value 09/14/2024 Sex and Gender Information Value Date Recorded Sex Assigned at Male 10/16/2024 3:14 PM EDT Legal Sex Male 4:14 AM EST Gender Identity Male 10/16/2024 3:14 PM EDT Sexual Orientation Not on file Last Filed Vital Signs Vital Sign Reading Time Taken Comments Blood Pressure 125/87 01/15/2025 9:01 AM EDT Pulse 81 01/15/2025 9:01 AM EDT Temperature 36.8 C (98.2 F) 01/15/2025 9:01 AM EDT Respiratory Rate 18 09/15/2024 11:38 AM EDT Oxygen Saturation 97% 12/09/2024 10:13 AM EDT Inhaled Oxygen Concentration - - Weight 103 kg (228 lb) 01/15/2025 9:01 AM EDT Height 167.6 cm (5' 6 ) 12/09/2024 10:13 AM EDT Body Mass Index 36.8 12/09/2024 10:13 AM EDT Plan of Treatment Health Maintenance Due [...] (2 of 2 - PCV) 2022 07/01/2019 RSV Immunization Adult Patients (1 - Risk 50-74 years 1-dose series) 2022 Zoster Vaccines (2 of 2) 01/07/2024 11/12/2023 [...] Procedure Name Priority Date/Time Associated Diagnosis Comments BASIC METABOLIC PANEL Routine 09/15/2024 5:21 AM EDT LIPID PANEL WITH REFLEX TO DIRECT LDL Add-On 09/15/2024 5:21 AM EDT HM COLONOSCOPY Routine 10/21/2023 HEMOGLOBIN A1C Routine 03/03/2020 from Last 3 Months or Most Recently Relevant to Health Maintenance Results * (ABNORMAL) Lipid panel with reflex to direct LDL (09/15/2024 5:21 AM EDT) Cholesterol 185 0 - 200 mg/dL LAB CHEMISTRY METHOD 09/15/2024 2:18 PM EDT [facility] Triglycerides 312(H) 0 - 150 mg/dL LAB CHEMISTRY METHOD 09/15/2024 2:18 PM EDT [facility] HDL 31(L) >=40 mg/dL LAB CHEMISTRY METHOD 09/15/2024 2:18 PM EDT [facility] LDL Calculated 92 0 - 100 mg/dL LAB CHEMISTRY METHOD 09/15/2024 2:18 PM EDT [facility] VLDL Cholesterol Carlos 62.4 mg/dL LAB CHEMISTRY METHOD 09/15/2024 2:18 PM EDT [facility] Non HDL Chol. (LDL+VLDL) 154(H) <145 mg/dL LAB CHEMISTRY METHOD 09/15/2024 2:18 PM EDT [facility] Chol/HDL Ratio 6.0(H) 0.0 - 4.4 LAB CHEMISTRY METHOD 09/15/2024 2:18 PM EDT [facility] Blood Venous blood specimen / Unknown Venipuncture / Unknown 09/15/2024 5:21 AM EDT 09/15/2024 6:24 AM EDT Jaime Shaw MD LAB BLOOD ORDERABLES F inal Result [facility] [address] [place] [address], * (ABNORMAL) Basic metabolic panel (09/15/2024 5:21 AM EDT) Sodium 137 133 - 145 mmol/L LAB CHEMISTRY METHOD 09/15/2024 7:08 AM T [facility] Potassium 3.9 3.5 - 5.5 mmol/L LAB CHEMISTRY METHOD 09/15/2024 7:08 AM [facility] Chloride 104 96 - 110 mmol/L LAB CHEMISTRY METHOD 09/15/2024 7:08 AM [facility] CO2 22 21 - 32 mmol/L LAB CHEMISTRY METHOD 09/15/2024 7:08 AM [facility] Anion Gap 11 3 - 11 LAB CHEMISTRY METHOD 09/15/2024 7:08 AM [facility] Glucose 113(H) 70 - 100 mg/dL LAB CHEMISTRY METHOD 09/15/2024 7:08 AM [facility] BUN 14 5 - 25 mg/dL LAB CHEMISTRY METHOD 09/15/2024 7:08 AM [facility] Creatinine 1.24 0.70 - 1.30 mg/dL LAB CHEMISTRY METHOD 09/15/2024 7:08 AM [facility] eGFR 70 >=60 mL/min/1. 73m2 LAB CHEMISTRY METHOD 09/15/2024 7:08 AM [facility] Comment:Calculation based on the Chronic Kidney Disease Epidemiology Collaboration (CKD-EPI) equation refit without adjustment for race. BUN/Creatinine Ratio 11.3 LAB CHEMISTRY METHOD 09/15/2024 7:08 AM [facility] Calcium 8.9 8.5 - 10.5 mg/dL LAB CHEMISTRY METHOD 09/15/2024 7:08 AM [facility] Blood Venous blood specimen / Unknown Venipuncture / Unknown 09/15/2024 5:21 AM EDT 09/15/2024 6:24 AM EDT us Lindsay White MD LAB BLOOD ORDERABLES Final Res ult [facility] [address] [place] [address], [place] [phone] * Colonoscopy (10/21/2023) Colonoscopy abstracted, no interpretation Anatomical Region Laterality Modality Other Historical Provider HEALTH MAINTENANCE Final Result * Hemoglobin A1c (03/03/2020) Hemoglobin A1C 6.2 <=6.5 % Blood Venous blood specimen / Unknown us Historical Provider LAB BLOOD ORDERABLES Amber torres Result from Last 3 Months or Most Recently Relevant to Health Maintenance Insurance [facility] [employer] PL[employer] MEDICAID - [place] Advance Directives Documents on File Type Date Recorded Patient Furnace Installer Expl anation Health Care Decision (hx) 01/02/2017 [...] currently active code status orders. Care Teams Erection Shop Supervisor Relationship Specialty Start Date End Date Daniel Cisneros MD [address] [place] [address] [address] [place], [place] PCP - General Internal Medicine 01/25/18
--- OUTSIDE RECORDS SUMMARY | 2025-03-20 03:57 | XMS_ITS | Clinical Summary ---
Author Organization [facility] Address [address] [address] Phone Care Team Providers Care Supervisor Nutritional Yeast Name Role Phone Daniel Cisneros MD Primary [...] for 14 days. 28 tablet 03/16/2024 Active Social History Tobacco Use Types Packs/Day Years [...] years) (1 of 1 - PCV) 2022 RSV VACCINE (1 - Risk 50-74 years 1-dose series) 2022 ZOSTER VACCINES (2 of 2) 01/07/2024 11/12/2023 INFLUENZA VACCINE (#1) 2024 , 01/04/2021, 12/27/2019, Additional history exists COVID-19 VACCINE ( - season) 2024 01/25/2021, 01/04/2021 Adult Td,Tdap Booster [...] topic Medical Devices Not on file [facility] WELLSENSE NON NSPG PCP SILVER [employer] NON NSPG PCP SILVER [employer]ARITY CONNE[employer]CARE [employer] NON NSPG PCP SILVER CLARITY CONNECTORCARE [employer] NON NSPG PCP SILVER CLARITY CONNECTORCARE [facility] NON NSPG PCP SARAH MARQUEZ CONNECTORCARE Care Teams Supervisor Nutritional Yeast Relationship Specialty Start Date End Date Daniel Cisneros MD [address] [facility] [address] [place] [address] PCP - General Internal Medicine 03/16/24 Additional Source Comments The information contained in this document represents components of the legal health record. It is not the complete legal health record.[facility]
--- OUTSIDE RECORDS SUMMARY | 2025-03-20 03:57 | XMS_ITS | Clinical Summary ---
Author Organization [facility] Prior to 08/29/24 Address [address] [place] [address] Care Team Providers Care Conche Operator Name Role Phone Daniel Cisneros MD Primary Care Provider [phone] Allergies Active Allergy Reactions Criticality Noted Date [...] age to complete this topic Care Teams Conche Operator Relationship Specialty Start Date End Date Daniel Cisneros MD [address] [facility] [address] [place] [address] PCP - General Geriatric Medicine 09/08/16
[2025-03-20 04:03] LABS: Alanine Aminotransferase 42 U/L (0-40); Albumin Level 4.0 g/dL (3.5-5.0); Anion Gap 15 (12-20); Aspartate Amino Transferase 25 U/L (5-37); Blood Urea Nitrogen 15 mg/dL (9-16); Calcium 8.9 mg/dL (8.4-10.2); Carbon Dioxide 22 mmol/L (22-29); Chloride 110 mmol/L (96-108); Creatinine Clr Calc Pharmacy 58.6; Estimated Glomerular Filt Rate 44; Potassium 3.5 mmol/L (3.3-5.1); Sodium 143 mmol/L (135-145); Total Protein 6.8 g/dL (6.5-8.0)
[2025-03-20 04:04] LABS: Alkaline Phosphatase 36 U/L (39-117); Lipase 25 U/L (8-78)
[2025-03-20 05:38] LABS: Hematocrit 45.7 % (42.0-52.0); Hemoglobin 15.0 g/dl (14.0-18.0); Imm Gran Abs Auto 0.15 X10*3/uL (0.00-0.03); Imm Gran Pct Auto 1.0 % (0.0-0.4); Lymphocytes Absolute Auto 3.6 X10*3/uL (1.2-4.9); Mean Corpuscular HGB Conc 32.8 g/dl (31.0-36.0); Mean Corpuscular Hemoglobin 27.8 pg (27.0-33.0); Mean Corpuscular Volume 84.8 fL (80.0-98.0); NRBC Abs Auto 0.000 X10*3/uL (0.0-0.012); NRBC Pct Auto 0.0 /100WBC (0.0-0.2); Platelet Count 262 X10*3/uL (160-400); Red Blood Count 5.39 X10*6/uL (4.60-5.80); White Blood Count 14.7 X10*3/uL (4.8-10.8)
[2025-03-20 06:21] VITALS: BP 140/91; PULSE 76; RESP 16; TEMP 36.4; O2SAT 97
[2025-03-20 08:04] LABS: Appearance Urine Clear; Glucose Urine UA >=1000 mg/dL (Negative); PH 5.0 (5.0-9.0); Specific Gravity - Urine >= 1.030 (1.005-1.025); UMIC TRIGGER UACC YES
--- NOTE | 2025-03-20 08:15 | ED.GENADULT ---
HPI - General Adult General Chief complaint: General Medical Stated complaint: vomited in sleep/hands swelling/belly bloated Time Seen by Provider: 03/20/25 08:01 Source: patient, RN notes reviewed and old records reviewed Mode of arrival: ambulatory Limitations: no limitations History of Present Illness ED Provider: Dayo HPI narrative: Patient is a 54-year-old male with past medical history of T2 dm, Crohn's disease, gastritis and duodenitis, gastric ulcer, status post colostomy take down, diverticulitis, HTN, chronic renal insufficiency, IBS, vertigo, GERD presenting to the emergency department stating that the night before last he vomited in his sleep and has been coughing since, also reports that last night he was incontinent of stool. States that he got up from bed and continued to have diarrhea. He is also reporting a rash to his groin. Feels as though he is having swelling to his hands and feet. Denies fevers. States emesis was nonbloody, nonbilious. Denies hematochezia or melena. Feels as though his abdomen is bloated. Complains of epigastric abdominal pain. MD complaint: vomiting and diarrhea Related Data Home Medications ?Medication ?Instructions ?Recorded ?Confirmed aspirin 81 mg tablet,delayed 81 mg PO DAILY 12/28/19 12/24/24 release (Adult Low Dose Aspirin) atorvastatin 20 mg tablet 20 mg PO BEDTIME 12/28/19 12/24/24 gabapentin 300 mg capsule 300 mg PO BID 01/07/20 12/24/24 sertraline 50 mg tablet 50 mg PO DAILY 02/16/20 12/24/24 amlodipine 10 mg tablet 10 mg PO DAILY 01/25/22 12/24/24 empagliflozin 10 mg tablet 10 mg PO DAILY 01/25/22 12/24/24 (Jardiance) sitagliptin phosphate 50 1 tab PO BID 01/25/22 12/24/24 mg-metformin 1,000 mg tablet (Janumet) carvedilol 12.5 mg tablet 25 mg PO BID 07/10/23 12/24/24 dicyclomine 20 mg tablet 20 mg PO QID PRN Abdominal 07/10/23 12/24/24 Discomfort insulin glargine 100 unit/mL (3 12 unit subcut BEDTIME PRN 04/10/24 09/25/25 mL) subcutaneous pen (Lantus Hyperglycemia Solostar U-100 Insulin) oxcarbazepine 300 mg tablet 300 mg PO BID 07/10/23 12/24/24 trazodone 50 mg tablet 50 - 100 mg PO BEDTIME PRN insomnia 07/10/23 12/24/24 benazepril 10 mg tablet 20 mg PO DAILY 11/13/24 12/24/24 budesonide 3 mg 9 mg PO QAM 11/13/24 12/24/24 capsule,delayed,extended release hydroxyzine HCl 25 mg tablet 25 - 50 mg PO BEDTIME PRN insomnia 11/13/24 12/24/24 Previous Rx's ?Medication ?Instructions ?Recorded omeprazole 20 mg capsule,delayed 1 cap PO BID #60 caps 02/15/23 release ibuprofen 600 mg tablet 600 mg PO Q8H PRN fever or pain 07/19/23 #20 tabs hydromorphone 2 mg tablet 2 mg PO Q6H PRN pain (scale score 12/04/24 (Dilaudid) 7-10) #20 tabs hydrocortisone-pramoxine 2.5 %-1 % 1 appl KS BID PRN itching #30 grams 12/07/24 rectal cream lidocaine 4 % topical gel 1 appl topical TID PRN pain #30 12/07/24 grams nystatin 100,000 unit/gram topical 1 appl topical TID #15 grams 03/20/25 powder Allergies Allergy/AdvReac Type Severity Reaction Status Date / Time morphine (MORPHINE) Allergy Unknown HIVES, rash Verified 03/20/25 03:13 pravastatin Allergy Unknown Verified 03/20/25 03:13 Review of Systems Review of Systems: As per hPI Yes all other systems are reviewed and are negative Constitutional: Constitutional: Reports as per HPI [facility] Past Medical History Medical History Acute Crohn's disease Bleeding hemorrhoid Chronic renal insufficiency HTN (hypertension) Leukocytosis Depression IBS (irritable bowel syndrome) SOB (shortness of breath) Pericardial effusion Vertigo Blurry vision Obesity Elevated blood pressure reading Hypertension, uncontrolled Renal insufficiency Sleep apnea Diabetes Lower GI bleed Diverticulosis Hematochezia Right ankle pain History of diverticulitis Mitral valve disease Anxiety GERD (gastroesophageal reflux disease) Constipation Hyperlipidemia Hypertension Surgical History Hx of hemorrhoidectomy (11/23/24) History of ankle surgery S/P mitral valve repair (~2018) History of colostomy reversal History of esophagogastroduodenoscopy (EGD) History of colonoscopy Status post Ammy procedure (10/21/19) Family History Family History Mother Diabetes mellitus Father Diabetes mellitus Social History Social History Household Members: Significant Other Housing: Apartment Are you a primary outdoor emergency care technician to a significant other at home: No Do you presently have visiting nurse or other home services: No Alcohol intake: current Alcohol intake frequency: holidays/special occasions only Alcohol type: beer and hard liquor Comment: PT SLEEPING Patient Tobacco Use Status: Never used Tobacco Second Hand Smoke Exposure: No Substance Use Type: Marijuana Advance Directives: Yes Advance Directives on File: Yes Advance Directives Date on File: 02/22/20 service: No Current occupational status: unemployed Physical Exam ED Vital Signs: Vital Signs - 24 hr 03/20/25 03:10 03/20/25 03:53 03/20/25 06:21 Temperature 97.8 F 98.0 F 97.5 F Pulse Rate 80 78 76 Respiratory Rate 18 18 16 Blood Pressure 148/91 H 147/100 H 140/91 H Pulse Oximetry 96 97 97 Oxygen Delivery Method Room Air Room Air Room Air BMI result Body Mass Index 36.0 Vital signs have been reviewed and appear to be correct. Blood pressure normal. Heart rate normal. Respiratory rate normal. Temperature normal. Oxygen saturation normal. Const General: cooperative and no acute distress Orientation/consciousness: oriented to person, oriented to place, oriented to time and patient oriented x3 Limitations: no limitations HENMT Head: Yes normocephalic and Yes atraumatic Ears: external ears normal General nose exam: Normal external nose present Face and sinus: Yes face symmetric Mouth: oropharynx normal and moist mucous membranes Throat: Yes uvula midline Eyes Pupils: Equal, round and reactive pupils present Neck Neck: Yes normal visual inspection and Yes supple Resp Effort & Inspection: normal respiratory effort and able to speak in complete sentences Auscultation: clear to auscultation bilaterally Cardio Rate: regular rate Rhythm: regular rhythm Heart sounds: S1 normal heart sound present and S2 normal heart sound present GI Other: multiple well-healed surgical scars to abdomen Palpation (GI): Soft to palpation, Tenderness to palpation present (GI) in the epigastrum, no guarding and No Rebound tenderness present Auscultation: normoactive bowel sounds Other: Exam chaperoned by GEMINI Orr General: Yes no CVA tenderness Male genitals images:  1. moist erythematous dyspigmented rash 2. moist erythematous dyspigmented rash Back/Spine/Pelvis Back: no CVA tenderness Skin General skin exam: elasticity normal and turgor normal Neuro General: oriented to person, oriented to place, oriented to time, patient oriented x3, moves all extremities, no focal motor deficits and CN's II-XI intact bilaterally Cranial nerves: Yes Equal, round and reactive pupils present Cognition (Neuro): normal cognition Extrem General: Yes full ROM, Yes no pedal edema, Yes no calf tenderness and No edema Medications Administered Discontinued Medications Generic Name Dose Route Start Last Admin Trade Name Onielq PRN Reason Stop Dose Admin Al Hydroxide/Mg Hydroxide 30 ml 03/20/25 09:23 03/20/25 09:54 Magnesium Hydrox/Alum Hydrox 30 Ml Oral.Susp PO 03/20/25 09:24 30 ml ONCE ONE Administration Lactated Ringer's 1,000 mls @ 999 mls/hr 03/20/25 08:30 03/20/25 09:54 Lr IV 03/20/25 09:30 Infused .Q1H1M SHARIF Infusion Lidocaine HCl 15 ml 03/20/25 09:23 03/20/25 09:54 Lidocaine Hcl Viscous 2 % 15 Ml Solution MUCOUS MEM 03/20/25 09:24 15 ml ONCE ONE Administration Medical Decision Making Medical Decision Making [facility] Narrative: 54-year-old male with past medical history of T2 dm, Crohn's disease, gastritis and duodenitis, gastric ulcer, status post colostomy take down, diverticulitis, HTN, chronic renal insufficiency, IBS, vertigo, GERD presenting to the emergency department stating that the night before last he vomited in his sleep and has been coughing since, also reports that last night he was incontinent of stool. On exam patient is awake, A+Ox3, VS WNL, afebrile, normal neurological exam without focal deficits, physical exam findings as above. Given reported symptoms and physical exam findings, initial differential includes but is not limited to viral illness, aspiration pneumonia, candidal rash of groin, GERD associated cough. No edema noted to hands or feet on physical exam, lungs CTA throughout. Groin rash consistent with candidal infection, no suspicion for Rene's gangrene. Labs notable for mild leukocytosis, creatinine slightly elevated since most recent visit, slightly elevated transaminases wiht normal Tbili. Urinalysis is without evidence of infection. Viral serology negative. X-ray chest notable for No evidence of aspiration pneumonia. My interpretation is in agreement with the radiologist's interpretation. patient reports improvement in epigastric pain after GI cocktail. Feel he is stable for discharge home, advised that he follow-up with his supervisor audit clerks outpatient. Will send prescription for nystatin powder for candidal rash to groin. Return precautions discussed. Patient verbalized understanding of and agreement with plan. Differential Diagnosis Differential Diagnoses: The differential diagnosis associated with the presentation includes As per [facility] Admission/Observation Consideration of admission/observation: Escalation of care including admission/observation considered Patient would have been admitted to the hospital and transferred to appropriate facility had their clinical presentation warranted hospital admission. Lab Data [facility] Lab Attestation statement: I reviewed the patient's lab results. as per [facility] 03/20/25 03:29 03/20/25 03:29 Labs: Lab Results 03/20/25 03/20/25 03/20/25 Range/Units 03:23 03:29 07:52 WBC 14.7 H (4.8-10.8) X10*3/uL RBC 5.39 (4.60-5.80) X10*6/uL Hgb 15.0 (14.0-18.0) g/dl Hct 45.7 (42.0-52.0) % MCV 84.8 (80.0-98.0) fL MCH 27.8 (27.0-33.0) pg MCHC 32.8 (31.0-36.0) g/dl RDW 16.0 (11.0-16.0) % Plt Count 262 (160-400) X10*3/uL MPV 10.7 (9.4-12.4) fL Immature Gran % (Auto) 1.0 H (0.0-0.4) % Neut % (Auto) 65.4 (45-73) % Lymph % (Auto) 24.4 (20-40) % [place] % (Auto) 7.5 (2-11) % Eos % (Auto) 1.2 (0-4) % Baso % (Auto) 0.5 (0-2) % Lymph # (Auto) 3.6 (1.2-4.9) X10*3/uL [place] # (Auto) 1.1 (0.1-1.2) X10*3/uL Eos # (Auto) 0.2 (0.0-0.4) X10*3/uL Baso # (Auto) 0.1 (0.0-0.2) X10*3/uL Abs Immat Gran (auto) 0.15 H (0.00-0.03) X10*3/uL Absolute Neuts (auto) 9.6 H (2.0-8.3) x10*3/uL Absolute Nucleated RBC 0.000 (0.0-0.012) X10*3/uL Nucleated RBC % (auto) 0.0 (0.0-0.2) /100WBC Sodium 143 (135-145) mmol/L Potassium 3.5 (3.3-5.1) mmol/L Chloride 110 H (96-108) mmol/L Carbon Dioxide 22 (22-29) mmol/L Anion Gap 15 (12-20) BUN 15 (9-16) mg/dL Creatinine 1.64 H (0.5-1.4) mg/dL Estim Creat Clear Calc 58.6 Estimated GFR 44 POC Glucose 150 H (60-115) mg/dL Random Glucose 137 H (60-115) mg/dL Calcium 8.9 (8.4-10.2) mg/dL Total Bilirubin 0.3 (0.0-1.0) mg/dL AST 25 D (5-37) U/L ALT 42 H (0-40) U/L Alkaline Phosphatase 36 L D (39-117) U/L Total Protein 6.8 (6.5-8.0) g/dL Albumin 4.0 (3.5-5.0) g/dL Lipase 25 (8-78) U/L Urine Color Yellow Urine Appearance Clear Urine pH 5.0 (5.0-9.0) Ur Specific Agu[place]re >= 1.030 H (1.005-1.025) Urine Protein Trace (Neg-Trace) mg/dL Urine Glucose (UA) >=1000 H (Negative) mg/dL Urine Ketones Trace (Negative) mg/dL Urine Blood Negative (Negative) Urine Nitrite Negative (Negative) Ur Leukocyte Esterase Negative (Negative) Urine RBC 0-2 (0-2) /HPF Urine WBC 0-5 (0-5) /HPF Ur Squamous Epith Cells 0-2 (0-2) /HPF Urine Bacteria None Seen (None Seen) Hyaline Casts 0-2 (0-2) /LPF COVID-19 (CLAIRE) Negative (Negative) COVID-19 Clin Com See Note Influenza Type A (HANY) Negative (Negative) Influenza Type B (HANY) Negative (Negative) Influenza A & B Note See Note Independent Interpretation I performed an independent interpretation of an: Plain X-Ray Interpretation: no evidence of aspiration pneumonia on chest x-ray Radiology Impression Discussion of test interpretation with radiology: I have reviewed the radiologist's reading. Radiologist Impression: 2 view chest x-ray. Comparison: 08/07/2023 Findings: The lungs are adequately expanded. No focal consolidation. No effusion or pneumothorax. Cardiac and mediastinal contours are within normal limits. No acute osseous abnormality. Impression: No acute process. External Record Review External record reviewed: Inpatient record, Office record and Outpatient record Prescription Management I considered prescription management with: Other Discharge Plan Discharge Clinical Impression: Candidal dermatitis, Acute epigastric pain Patient Disposition: Home, Self-Care Instructions: Epigastric Pain (ED), Skin Yeast Infection (ED) Additional Instructions: You were evaluated in the emergency department today for vomiting and diarrhea. Your labs were reassuring. You will tested negative for flu and COVID. Your urine did not show evidence of infection. You are being treated for a skin rash due to yeast in your groin area with nystatin powder. Use this as directed. We recommend that you follow-up with your supervisor audit clerks for ongoing symptoms. Be sure to drink plenty of fluids. Return to the emergency department if you develop worsening abdominal pain, have persistent vomiting, if you notice blood in your vomit or stool, if you develop fever 100.4? F or greater or any other new or concerning symptoms. Prescriptions: New nystatin 100,000 unit/gram powder 1 appl topical TID Qty: 15 0RF No Action hydromorphone [Dilaudid] 2 mg tablet 2 mg PO Q6H PRN (Reason: pain (scale score 7-10)) Qty: 20 0RF Rx Instructions: Partial Fill upon patient request. sertraline 50 mg Tablet 50 mg PO DAILY gabapentin 300 mg Capsule 300 mg PO BID amlodipine 10 mg tablet 10 mg PO DAILY Janumet 50-1,000 mg Tablet 1 tab PO BID Jardiance 10 mg Tablet 10 mg PO DAILY omeprazole 20 mg capsule,delayed release(DR/EC) 1 cap PO BID Qty: 60 0RF carvedilol 12.5 mg tablet 25 mg PO BID trazodone 50 mg tablet 50 - 100 mg PO BEDTIME PRN (Reason: insomnia) oxcarbazepine 300 mg tablet 300 mg PO BID dicyclomine 20 mg Tablet 20 mg PO QID PRN (Reason: Abdominal Discomfort) insulin glargine [Lantus Solostar U-100 Insulin] 100 unit/mL (3 mL) insulin pen 12 unit subcut BEDTIME PRN (Reason: Hyperglycemia) benazepril 10 mg tablet 20 mg PO DAILY hydroxyzine HCl 25 mg tablet 25 - 50 mg PO BEDTIME PRN (Reason: insomnia) budesonide 3 mg capsule,delayed,extend.release 9 mg PO QAM ibuprofen 600 mg tablet 600 mg PO Q8H PRN (Reason: fever or pain) Qty: 20 0RF atorvastatin 20 mg tablet 20 mg PO BEDTIME aspirin [Adult Low Dose Aspirin] 81 mg tablet,delayed release (DR/EC) 81 mg PO DAILY hydrocortisone-pramoxine 2.5-1 % cream 1 appl KS BID PRN (Reason: itching) Qty: 30 0RF lidocaine 4 % gel 1 appl topical TID PRN (Reason: pain) Qty: 30 0RF Print Language: Cambodian
[2025-03-20] MEDS: Lactated Ringers 1,000 ML 999 ML IV (08:28)
--- NOTE | 2025-03-20 08:38 | PC.NURSE ---
Care of Pt assumed at change of shift (0700.) Pt expresses frustration with wait times and is encouraged to be patient. He is able to provide a urine sample at this time and spec sent to lab for evaluation. Pt seen by provider. Orders for CXR and IVF placed. 20g to RAC Pt is resting quietly.
[2025-03-20] MEDS: Magnesium Hydrox/Alum Hydrox 30 ML ORAL.SUSP PO (09:54)
[2025-03-20] MEDS: Lidocaine HCl Viscous 2 % 15 ML SOLUTION MUCOUS MEM (09:54)
[2025-03-20 11:06] VITALS: BP 150/108; PULSE 71; RESP 20; TEMP 36.4; O2SAT 94
[2025-03-20 11:35] VITALS: BP 150/108; PULSE 71; RESP 20; TEMP 36.4; O2SAT 94
== END 2025-03-20 11:36 | disposition home or self-care (01) ==
PROVIDERS: Emergency Provider Emergency Medicine; PCP Internal Medicine
DX: L30.8 Other specified dermatitis (principal); R10.13 Epigastric pain; E11.9 Type 2 diabetes mellitus without complications; I10 Essential (primary) hypertension; R11.10 Vomiting, unspecified; Z87.19 Personal history of other diseases of the digestive system; Z79.899 Other long term (current) drug therapy
CPT/HCPCS: 71046; 80053; 81001; 82947; 83690; 85025; 87502; 87635; 96360; 99284; J7120

== ENCOUNTER → 2025-03-20 08:30 | Outpatient (BNV) | payer SELFPAY | PROVIDERS: Emergency Provider Emergency Medicine; PCP Internal Medicine; Visit Provider Radiology Vascular & Interventional Radiology | DX: R05.9 Cough, unspecified (principal); R11.10 Vomiting, unspecified | CPT/HCPCS: 71046 ==